=== PATIENT | female | born 1940 | race Caucasian/White ===

== ENCOUNTER 2016-07-26 07:19 | Inpatient (IN) | payer MEDICARE ==
[2016-07-26] MEDS ORDERED: IPRATROPIUM-ALBUTEROL 3 ML NEB INHALATION STA (08:02)
[2016-07-26] MEDS ORDERED: methylPREDNISolone SOD SUCCI 125 MG/2 ML VIAL IV STA (08:02)
[2016-07-26] MEDS ORDERED: SODIUM CHLORIDE 0.9% 1,000 ML IV STA (08:02)
[2016-07-26 08:48] LABS: Basophils # (A) 0.1 k/uL (0-0.2); Basophils % (A) 1 %; CH 29.5; CHCM 33.9; Eosinophils # (A) 0.9 k/uL (0-0.7); Eosinophils % (A) 12 %; HCT 40.2 % (34.0-46.0); HDW 2.73; HGB 13.7 gm/dL (11.4-16.0); Luc # (Auto) 0.31; Luc % (Auto) 4; Lymphocytes # (A) 1.8 k/uL (1.0-4.8); Lymphocytes % (A) 24 %; MCH 29.8 pg (25.0-35.0); MCHC 34.1 g/dL (31.0-37.0); MCV 87.6 fL (80.0-100.0); Mean Platelet Volume 7.1; Monocytes # (A) 0.6 k/uL (0-1.0); Monocytes % (A) 8 %; Neutrophils # (A) 3.9 k/uL (1.3-7.7); Neutrophils % (A) 52 %; RBC 4.59 m/uL (3.80-5.40); RDW 13.3 % (11.5-15.5); WBC 7.6 k/uL (3.8-10.6); WBC (Perox) 7.72
[2016-07-26 08:56] LABS: Partial Thromboplastin Time 24.6 sec (22.0-30.0); Prothrombin Time 10.4 sec (9.0-12.0)
[2016-07-26 09:03] LABS: ALT 19 U/L (9-52); AST 14 U/L (14-36); Alkaline Phosphatase 68 U/L (38-126); Anion Gap 11 mmol/L; Blood Urea Nitrogen 19 mg/dL (7-17); Calcium 9.1 mg/dL (8.4-10.2); Carbon Dioxide 29 mmol/L (22-30); Chloride 104 mmol/L (98-107); Glucose 74 mg/dL (74-99); Non-African American GFR(MDRD) >60 (>60 ml/min/1.73 sqM); Potassium 4.3 mmol/L (3.5-5.1); Sodium 144 mmol/L (137-145); Total Bilirubin 0.6 mg/dL (0.2-1.3); Total Protein 6.3 g/dL (6.3-8.2)
--- NOTE | 2016-07-26 09:03 | XR ---
EXAMINATION TYPE: XR chest 2V DATE OF EXAM: 07/26/2016 8:58 AM HISTORY: difficulty breathing. REFERENCE: Previous study dated 03/10/2016. FINDINGS: The lungs are overinflated. The heart is mildly enlarged. Lungs appear clear. Pleural space s are clear. IMPRESSION: COPD.
[2016-07-26 09:14] LABS: Creatine Kinase 26 U/L (30-135)
[2016-07-26 09:28] LABS: Creatine Kinase MB 0.5 ng/mL (0.0-2.4); Troponin I <0.012 ng/mL (0.000-0.034)
[2016-07-26] MEDS ORDERED: LEVOFLOXACIN 750MG-D5W PMX 750 MG in DEXTROSE/WATER 1 150ML.BAG IVPB STA (10:35)
--- NOTE | 2016-07-26 10:38 | ED ---
SOB HPI - General Chief Complaint: Shortness of Breath Stated Complaint: BARBIE, Time Seen by Provider: 07/26/16 07:54 Source: patient Mode of arrival: wheelchair Limitations: no limitations - History of Present Illness Initial Comments: Is 75-year-old white female presents with a complaint of some shortness of breath. She does have a history of COPD. She complains of wheezing. The onset occurred at 5:30 AM and she states that she did not feel she was moving much air. She was having wheezing without any significant cough. She denies any actual known fever. She felt very weak. She did try her albuterol breathing treatment with some relief. She also tried her inhaler. She took a nerve pill and her propanolol. Symptoms have improved somewhat better still present. She apparently was just released a couple weeks ago from the hospital with similar symptoms. She states that they wanted to keep her longer but she wanted to be discharged. She denies any other complaints or modifying factors. She denies any chest pain. - Related Data Home Medications Medication Instructions Recorded Confirmed FLUoxetine HCL [PROzac] 20 mg PO DAILY 12/19/14 07/26/16 Omeprazole [PriLOSEC] 20 mg PO BID 11/20/15 07/26/16 Albuterol Nebulized [Ventolin 2.5 mg INHALATION RT-Q6H PRN 07/26/16 07/26/16 Nebulized] Previous Rx's Medication Instructions Recorded ALPRAZolam [Xanax] 0.5 mg PO TID PRN #0 tab 03/14/16 Albuterol Inhaler [Ventolin Hfa 1 - 2 puff INHALATION RT-Q6H PRN 03/14/16 Inhaler] #2 inhaler Propranolol [Inderal] 10 mg PO TID tab 03/14/16 buPROPion XL [Wellbutrin Xl] 150 mg PO DAILY 30 Days 03/14/16 Allergies Allergy/AdvReac Type Severity Reaction Status Date / Time iodine Allergy Rash/Hives Verified 07/26/16 08:34 Sulfa (Sulfonamide Allergy Rash/Hives Verified 07/26/16 08:34 Antibiotics) zolpidem tartrate Allergy Hallucinati Verified 07/26/16 08:34 [From Humera] ons Review of Systems ROS Statement: Those systems with pertinent positive or pertinent negative responses have been documented in the HPI. ROS Other: All systems not noted in ROS Statement are negative. Past Medical History Past Medical History: COPD, CVA/TIA, Eye Disorder, GERD/Reflux, Hyperlipidemia Additional Past Medical History / Comment(s): Pt was recently admitted with AFib RVR converted to NSR and had lexiscan that was normal. Other hx: essential tremors, balance issues, falls, TIA, back pain, varicose veins bilaterally, low blood pressure, R cataract, hiatal hernia, RLS. History of Any Multi-Drug Resistant Organisms: None Reported Past Surgical History: Hysterectomy Additional Past Surgical History / Comment(s): 11/27/15 EGD with bx, L cataract removed, colonoscopy with 1 benign polypectomy. Past Anesthesia/Blood Transfusion Reactions: No Reported Reaction Past Psychological History: Anxiety, Depression Smoking Status: Current every day smoker Past Alcohol Use History: None Reported Additional Past Alcohol Use History / Comment(s): Pt states she has smoked for many yrs but unsure when she started. She quit for several yrs, during her pregnancies and when her children were young. She currently smokes 1/2 ppd. Past Drug Use History: None Reported - Past Family History Father Family Medical History: Cancer Additional Family Medical History / Comment(s): Pt thinks father might have from stomach cancer. She was 2 yrs old when he . Sister(s) Family Medical History: Cancer Additional Family Medical History / Comment(s): Half sister with brain cancer. Mother Family Medical History: Dementia Additional Family Medical History / Comment(s): Mother had gallstones and a partial thyroidectomy for noncancerous reasons. General Exam - General Exam Comments Initial Comments: GENERAL: The patient is well nourished and well hydrated. VITAL SIGNS: Heart rate, blood pressure, respiratory rate reviewed as recorded in nurse's notes. EYES: Pupils are round and reactive. Extraocular movements are intact. No conjunctival / lid redness or swelling. ENT: No external evidence of injury, swelling, or ecchymosis. Airway is patent. Throat is clear. NECK: Nontender. No swelling or evidence of injury. No subcutaneous emphysema. Trachea is midline. No thyroid mass. HEART: Regular rate and rhythm. Good peripheral pulses. LUNGS/CHEST: Wheezing is noted bilaterally and diffusely. No ecchymosis, subcutaneous emphysema, or tenderness. ABDOMEN: Abdomen soft without tenderness. No palpable masses or organomegaly. No peritoneal signs. No abdominal wall swelling or ecchymosis. EXTREMITIES: No extremity tenderness. Normal muscle tone and function. No thoracolumbar tenderness. NEUROLOGIC: Sensation is grossly intact. Cranial nerve exam reveals face is symmetrical, tongue is midline, speech is clear. SKIN: No abrasions or ecchymosis is noted. No induration or masses noted. PSYCHIATRIC: Alert and oriented. Appropriate behavior and judgment. Limitations: no limitations Course Vital Signs 07/26/16 07/26/16 07/26/16 07:23 07:34 07:38 Temperature 98.0 F 97.4 F L Pulse Rate 77 71 Respiratory 20 17 17 Rate Blood Pressure 110/57 116/63 O2 Sat by Pulse 92 L 97 Oximetry 07/26/16 07/26/16 07/26/16 09:08 09:15 09:30 Temperature 96.9 F L Pulse Rate 68 84 82 Respiratory 22 Rate Blood Pressure 148/67 O2 Sat by Pulse 97 Oximetry 07/26/16 07/26/16 10:23 10:49 Temperature 97.2 F L Pulse Rate 58 L 61 Respiratory 17 18 Rate Blood Pressure 135/64 154/67 O2 Sat by Pulse 99 98 Oximetry Medical Decision Making - Medical Decision Making The patient was seen and examined. All diagnostics were reviewed. The EKG shows a normal sinus rhythm at a rate of [address]-T wave changes noted. The MN interval is 148, QRS duration is 76 and QTC intervals 434. The chest x-ray showed signs of COPD. The laboratories reviewed. There is no evidence of pneumonia. Is felt as though she is having acute exacerbation of COPD. The possibility of bronchitis as possible as well. She receives double DuoNeb breathing treatment as well as Solu-Medrol and Levaquin. Is felt as though she would require admission to the hospital. She still bronchospastic on recheck. Case is discussed with internal medicine and they are agreeable. - Lab Data Result diagrams: 07/26/16 07:47 07/26/16 07:47 Lab Results 07/26/16 07/26/16 07/26/16 Range/Units 07:47 07:47 07:47 WBC 7.6 (3.8-10.6) k/uL RBC 4.59 (3.80-5.40) m/uL Hgb 13.7 (11.4-16.0) gm/dL Hct 40.2 (34.0-46.0) % MCV 87.6 (80.0-100.0) fL MCH 29.8 (25.0-35.0) pg MCHC 34.1 (31.0-37.0) g/dL RDW 13.3 (11.5-15.5) % Plt Count 263 (150-450) k/uL Neutrophils % 52 % Lymphocytes % 24 % Monocytes % 8 % Eosinophils % 12 % Basophils % 1 % Neutrophils # 3.9 (1.3-7.7) k/uL Lymphocytes # 1.8 (1.0-4.8) k/uL Monocytes # 0.6 (0-1.0) k/uL Eosinophils # 0.9 H (0-0.7) k/uL Basophils # 0.1 (0-0.2) k/uL PT (9.0-12.0) sec INR (<1.1) APTT (22.0-30.0) sec Sodium 144 (137-145) mmol/L Potassium 4.3 (3.5-5.1) mmol/L Chloride 104 (98-107) mmol/L Carbon Dioxide 29 (22-30) mmol/L Anion Gap 11 mmol/L BUN 19 H (7-17) mg/dL Creatinine 0.83 (0.52-1.04) mg/dL Est GFR (MDRD) Af Amer >60 (>60 ml/min/1.73 sqM) Est GFR (MDRD) Non-Af >60 (>60 ml/min/1.73 sqM) Glucose 74 (74-99) mg/dL Calcium 9.1 (8.4-10.2) mg/dL Total Bilirubin 0.6 (0.2-1.3) mg/dL AST 14 (14-36) U/L ALT 19 (9-52) U/L Alkaline Phosphatase 68 (38-126) U/L Total Creatine Kinase 26 L (30-135) U/L CK-MB (CK-2) 0.5 (0.0-2.4) ng/mL CK-MB (CK-2) Rel Index 1.9 Troponin I <0.012 (0.000-0.034) ng/mL Total Protein 6.3 (6.3-8.2) g/dL Albumin 3.8 (3.5-5.0) g/dL 07/26/16 Range/Units 07:47 WBC (3.8-10.6) k/uL RBC (3.80-5.40) m/uL Hgb (11.4-16.0) gm/dL Hct (34.0-46.0) % MCV (80.0-100.0) fL MCH (25.0-35.0) pg MCHC (31.0-37.0) g/dL RDW (11.5-15.5) % Plt Count (150-450) k/uL Neutrophils % % Lymphocytes % % Monocytes % % Eosinophils % % Basophils % % Neutrophils # (1.3-7.7) k/uL Lymphocytes # (1.0-4.8) k/uL Monocytes # (0-1.0) k/uL Eosinophils # (0-0.7) k/uL Basophils # (0-0.2) k/uL PT 10.4 (9.0-12.0) sec INR 1.0 (<1.1) APTT 24.6 (22.0-30.0) sec Sodium (137-145) mmol/L Potassium (3.5-5.1) mmol/L Chloride (98-107) mmol/L Carbon Dioxide (22-30) mmol/L Anion Gap mmol/L BUN (7-17) mg/dL Creatinine (0.52-1.04) mg/dL Est GFR (MDRD) Af Amer (>60 ml/min/1.73 sqM) Est GFR (MDRD) Non-Af (>60 ml/min/1.73 sqM) Glucose (74-99) mg/dL Calcium (8.4-10.2) mg/dL Total Bilirubin (0.2-1.3) mg/dL AST (14-36) U/L ALT (9-52) U/L Alkaline Phosphatase (38-126) U/L Total Creatine Kinase (30-135) U/L CK-MB (CK-2) (0.0-2.4) ng/mL CK-MB (CK-2) Rel Index Troponin I (0.000-0.034) ng/mL Total Protein (6.3-8.2) g/dL Albumin (3.5-5.0) g/dL Disposition Clinical Impression: Acute exacerbation of chronic obstructive airways disease, Bronchitis, Bronchospasm Disposition: ADMITTED IP TO THIS HOSP Condition: Fair Time of Disposition: 10:54 Decision Date: 07/26/16 Decision Time: 10:54
[2016-07-26] MEDS: ALPRAZolam 0.5 MG TAB PO PRN ×2 (14:08→22:01)
[2016-07-26] MEDS: IPRATROPIUM-ALBUTEROL 3 ML NEB INHALATION SCH ×2 (14:43→15:58)
[2016-07-26] MEDS: PROPRANOLOL 10 MG TAB PO SCH ×2 (15:03→22:01)
[2016-07-26] MEDS ORDERED: ACETAMINOPHEN TAB 500 MG TAB PO PRN (16:18)
[2016-07-26] MEDS ORDERED: TEMAZEPAM 15 MG CAP PO PRN (16:18)
[2016-07-26] MEDS ORDERED: HYDROcodone/APAP 5-325MG 1 EACH TAB PO PRN (16:18)
[2016-07-26] MEDS: PANTOPRAZOLE 40 MG TABLET PO SCH (17:00)
[2016-07-26] MEDS: NICOTINE 14MG/24HR PATCH TRANSDERM SCH (17:00)
[2016-07-26] MEDS: methylPREDNISolone SOD SUCCI 125 MG/2 ML VIAL IV SCH (17:00)
[2016-07-26] MEDS: IPRATROPIUM 0.5 MG/2.5 ML NEBU INHALATION SCH (19:57)
[2016-07-26] MEDS: BUDESONIDE 1 MG/2 ML NEBU INHALATION SCH (19:57)
[2016-07-26] MEDS: LEVALBUTEROL NEB (CONC) 1.25 MG/0.5 ML AMP INHALATION SCH (19:57)
[2016-07-26] MEDS: FORMOTEROL FUMARATE 20 MCG/2 ML NEBU INHALATION SCH (19:57)
[2016-07-26] MEDS ORDERED: BUDESONIDE 0.5 MG/2 ML NEBU INHALATION SCH (20:00)
[2016-07-27] MEDS: methylPREDNISolone SOD SUCCI 125 MG/2 ML VIAL IV SCH ×4 (00:57→17:21)
--- NOTE | 2016-07-27 05:20 | HP ---
DATE OF ADMISSION: DATE OF SERVICE: 07/26/2016 CHIEF COMPLAINT: Shortness of breath. HISTORY OF PRESENT ILLNESS: This 75-year-old woman with a past medical history of multiple medical problems including atrial fibrillation, COPD, CVA, GERD, history of hyperlipidemia, history of pneumonia, history of hysterectomy, history of anxiety and depression being followed by Dr. De La Garza in the outpatient setting living with a son. The patient uses a cane or walker to ambulate. The patient is driving. The patient apparently was having shortness of breath and cough for the last several days, but this morning at 5:30 patient was unable to breathe and move air at all and patient had significant wheezing and patient was taken to [facility] and admitted for further evaluation and treatment. The patient felt extremely weak and a chest x-ray was done in the ER which reviewed, showed only COPD. The pulse ox was 92% on room. There was no history of any fever, rigors. There is no history of headaches, loss of consciousness or seizures. PAST MEDICAL HISTORY: Atrial fibrillation, COPD, CVA, TIA, history of GERD, history of hyperlipidemia, pneumonia. Medications prior to admission include: 1. Wellbutrin XL 150 mg p.o. daily. 2. Inderal 10 mg p.o. t.i.d. 3. Prilosec 20 mg p.o. b.i.d. 4. Prozac 20 mg daily. 5. Ventolin 2.5 q.6 p.r.n. 6. Ventolin HFA 1 to 2 puffs q.6 p.r.n. 7. Xanax 0.5 t.i.d. p.r.n. ALLERGIES: IODINE, SULFA, AMBIEN. FAMILY HISTORY: History of cancer in the family. SOCIAL HISTORY: History of smoking. The patient has cut down significantly, did not smoke for the last 5 days according to her. No history of alcohol intake. REVIEW OF SYSTEMS: ENT: Diminished vision and hearing. CARDIOVASCULAR: No angina. RESPIRATORY: As mentioned earlier. GI: No nausea. : No dysuria. NERVOUS SYSTEM: No numbness or weakness. ALLERGY/IMMUNOLOGY: No history of asthma or hayfever. MUSCULOSKELETAL: As mentioned earlier. HEMATOLOGY/ONCOLOGY: No history of anemia. ENDOCRINE: No history of diabetes or hypothyroidism. CONSTITUTIONAL: As mentioned earlier. DERMATOLOGY: Negative. RHEUMATOLOGY: Negative. PSYCHIATRY: As mentioned earlier. PHYSICAL EXAMINATION: The patient is alert and oriented x3. Pulse 68, blood pressure 148/67, respirations 22, temperature 96.9, pulse ox 97% on 8 L. HEENT: Conjunctivae normal. Oral mucosa moist. NECK: No jugular venous distention. No carotid bruit. No lymph node enlargement. CARDIOVASCULAR: S1 and S2, muffled. No S3, no S4. RESPIRATORY: Breath sounds diminished at the bases. Bilateral scattered rhonchi and crackles. Expiratory wheezing also present. ABDOMEN: Soft, nontender. No mass palpable. LEGS: No edema, no swelling. NERVOUS SYSTEM: Diffusely weak. LYMPHATICS: No lymphadenopathy of neck, axillae or groin. SKIN: No ulcers, rashes or bleeding. LABS: CBC within normal limits. INR Is 1. BUN is 9 creatinine 0.83. Creatine kinase 26. ASSESSMENT: 1. Chronic obstructive pulmonary disease acute exacerbation with acute purulent tracheobronchitis. 2. History of atrial fibrillation. 3. History of cerebrovascular accident, transient ischemic attack. 4. History of gastroesophageal reflux disease. 5. Hyperlipidemia. 6. History of pneumonia. 7. History of paroxysmal atrial fibrillation. 8. History of transient ischemic attack. 9. History of tremors. 10. History of cataracts. 11. Hiatal hernia. 12. Restless leg syndrome. 13. History of anxiety, depression, not otherwise specified. 14. History of nicotine dependence. 15. FULL CODE. RECOMMENDATIONS AND DISCUSSION: This 75-year-old woman who presented with multiple complex medical issues, we will monitor the patient closely. Continue the current medications. Continue symptomatic treatment. Otherwise at this time I would recommend intensive bronchodilators and empiric antibiotics and IV steroids; also monitor blood sugars closely. Will also get a pulmonary consultation with Dr. Valdez. Guarded prognosis because of multiple complex medical issues. Further recommendations to follow. A copy is forwarded to Dr. De La Garza who is the primary physician. DVT prophylaxis. Proton pump inhibitors with GI prophylaxis. Would also recommend smoking cessation as well. Patient understands. See orders for further details. Medication concerns. Chest x-ray was reviewed. The EKG on admission showed normal sinus rhythm. MTDD
[2016-07-27 06:15] LABS: Appearance,Urine Clear (Clear); Bacteria,Urine Rare /hpf; Bilirubin,Urine Negative (Negative); Glucose,Urine (UA) Negative (Negative); Ketones,Urine Negative (Negative); Leukocyte Esterase,Urine Negative (Negative); Mucus,Urine Rare /hpf; Nitrite,Urine Negative (Negative); PH, Urine 6.5 (5.0-8.0); Particle Count 667; Protein,Urine Negative (Negative); RBC,Urine 6 /hpf (0-5); Specific Gravity,Urine 1.006 (1.001-1.035); Squamous Epithelial Cell,Urine 1 /hpf (0-4); UA Billing (MACRO vs. MICRO) MICRO; Urobilinogen,Urine <2.0 mg/dL (<2.0); WBC,Urine 1 /hpf (0-5)
[2016-07-27] MEDS: ENOXAPARIN 40 MG/0.4 ML SYRINGE SQ SCH (08:05)
[2016-07-27] MEDS: PROPRANOLOL 10 MG TAB PO SCH ×3 (08:06→21:40)
[2016-07-27] MEDS: NICOTINE 14MG/24HR PATCH TRANSDERM SCH (08:06)
[2016-07-27] MEDS: buPROPion XL 150 MG TAB.ER.24H PO SCH (08:07)
[2016-07-27] MEDS: FLUoxetine HCL 20 MG CAP PO SCH (08:07)
[2016-07-27] MEDS: PANTOPRAZOLE 40 MG TABLET PO SCH ×2 (08:08→17:21)
[2016-07-27] MEDS: ALPRAZolam 0.5 MG TAB PO PRN ×3 (08:10→19:11)
[2016-07-27] MEDS: LEVOFLOXACIN 750MG-D5W PMX 750 MG in DEXTROSE/WATER 1 150ML.BAG IVPB SCH (08:30)
[2016-07-27 09:16] LABS: Basophils % (A) 0 %; CHCM 32.6; Eosinophils % (A) 0 %; HDW 2.67; Luc # (Auto) 0.08; Luc % (Auto) 1; Lymphocytes # (A) 0.9 k/uL (1.0-4.8); Lymphocytes % (A) 6 %; MCH 28.4 pg (25.0-35.0); MCHC 31.8 g/dL (31.0-37.0); MCV 89.4 fL (80.0-100.0); Mean Platelet Volume 6.7; Monocytes # (A) 0.5 k/uL (0-1.0); Monocytes % (A) 3 %; Neutrophils # (A) 13.9 k/uL (1.3-7.7); Neutrophils % (A) 90 %; RBC 4.59 m/uL (3.80-5.40); WBC 15.4 k/uL (3.8-10.6); WBC (Perox) 16.51
[2016-07-27] MEDS: IPRATROPIUM 0.5 MG/2.5 ML NEBU INHALATION SCH ×5 (09:23→19:54)
[2016-07-27] MEDS: FORMOTEROL FUMARATE 20 MCG/2 ML NEBU INHALATION SCH ×2 (09:23→19:54)
[2016-07-27] MEDS: BUDESONIDE 1 MG/2 ML NEBU INHALATION SCH ×2 (09:23→19:54)
[2016-07-27] MEDS: LEVALBUTEROL NEB (CONC) 1.25 MG/0.5 ML AMP INHALATION SCH ×3 (09:24→19:54)
[2016-07-27 09:33] LABS: Anion Gap 13 mmol/L; Blood Urea Nitrogen 13 mg/dL (7-17); Calcium 9.8 mg/dL (8.4-10.2); Carbon Dioxide 25 mmol/L (22-30); Chloride 103 mmol/L (98-107); Glucose 163 mg/dL (74-99); Non-African American GFR(MDRD) >60 (>60 ml/min/1.73 sqM); Sodium 141 mmol/L (137-145)
[2016-07-27] MEDS: MULTIVITAMINS, THERA 1 EACH TAB PO SCH (13:12)
--- NOTE | 2016-07-27 20:12 | P.CNPUL ---
History of Present Illness Consult date: 07/27/16 Requesting physician: Raúl Jacinto Reason for consult: dyspnea Chief complaint: Shortness of breath History of present illness: This is a very pleasant 75-year-old female patient who follows with Dr. De La Garza as her primary care physician. She has a history of previous CVA/TIA , gastroesophageal reflux disease, hyperlipidemia, atrial fibrillation, essential tremors, restless leg syndrome. She also has a history of chronic and ongoing nicotine addiction for greater than 50 years and has suspected chronic obstructive pulmonary disease. She has been maintained on albuterol HFA and nebulized treatments in the outpatient setting. On a previous discharge she was on Symbicort but utilize the one inhaler and did not have any refills and was not maintained on any maintenance medications. She presented here yesterday with complaints of increasing shortness of breath, cough and congestion. Sick she did try utilizing her albuterol more frequently leave without much success. She felt as though she had bronchitis. She was not treated in the outpatient setting. She is seen today in consultation on the regular medical floor. She is awake and alert in no acute distress. Her chest x-ray showed evidence of chronic obstructive pulmonary disease but no acute pulmonary process. Blood cultures revealed no growth to date. She was afebrile. She continues with a loose nonproductive cough. She is breathing slightly better today as compared to yesterday. Review of Systems 14 point review of system was conducted. All negative other than as mentioned in HPI. Past Medical History Past Medical History: Atrial Fibrillation, COPD, CVA/TIA, Eye Disorder, GERD/ Reflux, Hyperlipidemia, Pneumonia Additional Past Medical History / Comment(s): 12/2015 AFib RVR converted to NSR and had lexiscan that was normal, bronchitis, essential tremors, balance issues , falls, TIA, chronic low back pain, varicose veins bilaterally, low blood pressure, R cataract, hiatal hernia, RLS. History of Any Multi-Drug Resistant Organisms: None Reported Past Surgical History: Hysterectomy Additional Past Surgical History / Comment(s): 11/27/15 EGD with bx, L cataract removed, colonoscopy with 1 benign polypectomy. Past Anesthesia/Blood Transfusion Reactions: No Reported Reaction Past Psychological History: Anxiety, Depression Additional Psychological History / Comment(s): Pt's sonSonu lives with her. She uses a cane or walker to ambulate. She drives. Her blessing, Rita comes and cleans home on occasion. she has had [facility] in the past. Smoking Status: Current every day smoker Past Alcohol Use History: None Reported Additional Past Alcohol Use History / Comment(s): Pt states she started smoking in her early 20's. She quit for several yrs, during her pregnancies and when her children were young. She currently smokes 1/2 ppd. Past Drug Use History: None Reported - Past Family History Father Family Medical History: Cancer Additional Family Medical History / Comment(s): Pt thinks father might have from stomach cancer. She was 2 yrs old when he . Sister(s) Family Medical History: Cancer Additional Family Medical History / Comment(s): Half sister with brain cancer. Mother Family Medical History: Dementia Additional Family Medical History / Comment(s): Mother had gallstones and a partial thyroidectomy for noncancerous reasons. Medications and Allergies Home Medications Medication Instructions Recorded Confirmed Type FLUoxetine HCL [PROzac] 20 mg PO DAILY 12/19/14 07/26/16 History Omeprazole [PriLOSEC] 20 mg PO BID 11/20/15 07/26/16 History Albuterol Nebulized [Ventolin 2.5 mg INHALATION RT-Q6H PRN 07/26/16 07/26/16 History Nebulized] Allergies Allergy/AdvReac Type Severity Reaction Status Date / Time iodine Allergy Rash/Hives Verified 07/26/16 08:34 Sulfa (Sulfonamide Allergy Rash/Hives Verified 07/26/16 08:34 Antibiotics) zolpidem tartrate Allergy Hallucinati Verified 07/26/16 08:34 [From Humera] ons Physical Exam Vitals: Vital Signs Temp Pulse Pulse Resp BP Pulse Ox 07/27/16 19:58 84 07/27/16 15:59 80 07/27/16 15:00 97.0 F L 72 16 104/80 97 07/27/16 09:45 84 07/27/16 09:30 88 07/27/16 09:29 88 07/27/16 09:23 86 07/27/16 07:00 97.3 F L 92 16 104/45 95 07/26/16 23:00 96 F L 93 20 126/58 94 L 07/26/16 20:23 84 07/26/16 20:09 82 07/26/16 20:08 82 Intake and Output 07/27/16 07/27/16 07/27/16 06:59 14:59 22:59 Intake Total 100 Balance 100 Intake: Oral 100 Other: # Voids 2 1 GENERAL EXAM: Alert, active, comfortable in no apparent distress. Essential tremors. HEAD: Normocephalic. EYES: Normal reaction of pupils, equal size. NOSE: Clear with pink turbinates. THROAT: No erythema or exudates. NECK: No masses, no JVD. CHEST: No chest wall deformity. LUNGS: Equal air entry with bilateral wheezing. Diminished. CVS: S1 and S2 normal with no audible murmurs, regular rhythm. ABDOMEN: No hepatosplenomegaly, normal bowel sounds, no guarding or rigidity. SPINE: No scoliosis or deformity SKIN: No rashes CENTRAL NERVOUS SYSTEM: No focal deficits, tone is normal in all 4 extremities. Extremities: There is no significant peripheral edema. No clubbing, no cyanosis. Peripheral pulses are intact. Results - Laboratory Findings CBC and BMP: 07/27/16 09:03 07/27/16 09:03 PT/INR, D-dimer PT 10.4 sec (9.0-12.0) 07/26/16 07:47 INR 1.0 (<1.1) 07/26/16 07:47 Abnormal lab findings: Abnormal Labs 07/27/16 07/27/16 07/27/16 03:15 09:03 09:03 WBC 15.4 H Neutrophils # 13.9 H Lymphocytes # 0.9 L Glucose 163 H Urine Blood Small H Urine RBC 6 H Urine Bacteria Rare H Urine Mucus Rare H - Diagnostic Findings Chest x-ray: image reviewed (COPD. No acute process.) Assessment and Plan Plan: Impression: #1 Acute exacerbation of suspected severe chronic obstructive pulmonary disease maintained on albuterol in the outpatient setting. #2 Significant 50+ pack per day smoking history. #3 Essential tremors. #4 Paroxysmal atrial fibrillation. #5 History of CVA/TIA. #6 Hyperlipidemia. #7 Gastroesophageal reflux disease. #8 Restless leg syndrome. #9 History of anxiety/depression. #10 Gastroesophageal reflux disease. Plan: The patient was seen and evaluated by Dr. Valdez. We will go ahead and treat her for her COPD exacerbation. She'll remain on IV Solu-Medrol, bronchodilators 4 times a day and when necessary, Pulmicort and Perforomist inhalations twice a day, empiric antibiotics in the form of Levaquin. She is educated regarding the importance of complete smoking cessation. A NicoDerm patch has been applied. She remains on Lovenox for DVT prophylaxis and Protonix for GI prophylaxis. She would benefit from a follow-up in our office where full pulmonary function testing can be performed and recommendations for maintenance medications will be provided. In the interim, we will increase her activity as tolerated. We'll continue to follow. Time with Patient: Greater than 30
--- NOTE | 2016-07-27 23:23 | PN ---
DATE OF SERVICE: 07/27/2016 This 75 -year-old woman was admitted to the hospital with COPD, acute exacerbation, the patient has acute purulent tracheobronchitis, being closely monitored. No chest pain. No palpitations. The patient is cough at this time. Pulmonary consultation in progress at this time. On exam, alert and oriented x3. Pulse is 72, blood pressure is 105/80. Respiratory rate 16, temperature 97 degrees, pulse ox 97% on 2 L. HEENT: Conjunctivae normal. NECK: No jugular venous distention. CARDIOVASCULAR: S1, S2 muffled. RESPIRATORY: Breath sounds diminished in the bases. Bilateral scattered rhonchi and crackles. ABDOMEN: Soft. Nontender. LEGS: No edema. No swelling. CENTRAL NERVOUS SYSTEM: No focal deficits. LABS: WBC 15.5, hemoglobin 13. Sodium 140, potassium 4, UA noted. ASSESSMENT: 1. Chronic obstructive pulmonary disease, acute exacerbation, with acute purulent tracheobronchitis. 2. History of atrial fibrillation. 3. History of cerebrovascular accident, transient ischemic attack. 4. History of gastroesophageal reflux disease. 5. Hyperlipidemia. 6. History of pneumonia. 7. History of paroxysmal atrial fibrillation. 8. History of transient ischemic attack. 9. History of tremors. 10. History of cataracts. 11. History of hiatal hernia. 12. Restless leg syndrome. 13. Anxiety, depression, not otherwise specified. 14. History nicotine dependence. 15. FULL CODE. RECOMMENDATIONS AND DISCUSSION: In this 75-year-old woman who presented with multiple complex medical issues, we will monitor the patient closely, continue the current medications, continue with bronchodilators, steroids. Closely follow with Dr. Valdez. Further recommendations to follow. MTDD
[2016-07-28] MEDS: methylPREDNISolone SOD SUCCI 125 MG/2 ML VIAL IV SCH ×3 (00:22→13:00)
[2016-07-28] MEDS: ALPRAZolam 0.5 MG TAB PO PRN ×2 (06:46→12:24)
[2016-07-28] MEDS: FORMOTEROL FUMARATE 20 MCG/2 ML NEBU INHALATION SCH ×2 (07:01→20:17)
[2016-07-28] MEDS: IPRATROPIUM-ALBUTEROL 3 ML NEB INHALATION SCH ×4 (07:01→20:17)
[2016-07-28] MEDS: BUDESONIDE 1 MG/2 ML NEBU INHALATION SCH ×2 (07:01→20:17)
[2016-07-28] MEDS: buPROPion XL 150 MG TAB.ER.24H PO SCH (07:37)
[2016-07-28] MEDS: LEVOFLOXACIN 750MG-D5W PMX 750 MG in DEXTROSE/WATER 1 150ML.BAG IVPB SCH (07:37)
[2016-07-28] MEDS: PROPRANOLOL 10 MG TAB PO SCH ×3 (07:38→20:36)
[2016-07-28] MEDS: ENOXAPARIN 40 MG/0.4 ML SYRINGE SQ SCH (07:38)
[2016-07-28] MEDS: PANTOPRAZOLE 40 MG TABLET PO SCH ×2 (07:38→18:20)
[2016-07-28] MEDS: FLUoxetine HCL 20 MG CAP PO SCH (07:38)
[2016-07-28] MEDS: NICOTINE 14MG/24HR PATCH TRANSDERM SCH (07:38)
[2016-07-28 08:46] LABS: Basophils % (A) 0 %; CH 29.1; CHCM 32.3; Eosinophils % (A) 0 %; HDW 2.62; HGB 13.2 gm/dL (11.4-16.0); Luc # (Auto) 0.12; Luc % (Auto) 1; Lymphocytes # (A) 0.8 k/uL (1.0-4.8); Lymphocytes % (A) 4 %; MCH 29.8 pg (25.0-35.0); MCV 90.5 fL (80.0-100.0); Mean Platelet Volume 6.9; Monocytes # (A) 0.5 k/uL (0-1.0); Monocytes % (A) 2 %; Neutrophils # (A) 16.9 k/uL (1.3-7.7); Neutrophils % (A) 93 %; RBC 4.42 m/uL (3.80-5.40); RDW 13.1 % (11.5-15.5); WBC 18.2 k/uL (3.8-10.6); WBC (Perox) 19.71
[2016-07-28 08:58] LABS: Anion Gap 10 mmol/L; Blood Urea Nitrogen 17 mg/dL (7-17); Calcium 9.7 mg/dL (8.4-10.2); Carbon Dioxide 28 mmol/L (22-30); Chloride 101 mmol/L (98-107); Glucose 148 mg/dL (74-99); Non-African American GFR(MDRD) >60 (>60 ml/min/1.73 sqM); Potassium 3.8 mmol/L (3.5-5.1); Sodium 139 mmol/L (137-145)
[2016-07-28] MEDS: MULTIVITAMINS, THERA 1 EACH TAB PO SCH (12:22)
[2016-07-28] MEDS: methylPREDNISolone SOD SUCCI 40 MG/ML 1 ML VIAL IV SCH ×2 (16:34→23:01)
--- NOTE | 2016-07-28 17:11 | P.PN ---
Subjective This is a very pleasant 75-year-old female patient who follows with Dr. De La Garza as her primary care physician. She has a history of previous CVA/TIA , gastroesophageal reflux disease, hyperlipidemia, atrial fibrillation, essential tremors, restless leg syndrome. She also has a history of chronic and ongoing nicotine addiction for greater than 50 years and has suspected chronic obstructive pulmonary disease. She has been maintained on albuterol HFA and nebulized treatments in the outpatient setting. On a previous discharge she was on Symbicort but utilize the one inhaler and did not have any refills and was not maintained on any maintenance medications. She presented here yesterday with complaints of increasing shortness of breath, cough and congestion. Sick she did try utilizing her albuterol more frequently leave without much success. She felt as though she had bronchitis. She was not treated in the outpatient setting. She is seen today in consultation on the regular medical floor. She is awake and alert in no acute distress. Her chest x-ray showed evidence of chronic obstructive pulmonary disease but no acute pulmonary process. Blood cultures revealed no growth to date. She was afebrile. She continues with a loose nonproductive cough. She is breathing slightly better today as compared to yesterday. The patient is seen again today on 07/28/2016 on the regular medical floor. She is awake and alert in no acute distress. She is improving daily. She denies any worsening shortness of breath at this time. She has a loose nonproductive cough. No chills or night sweats. She is maintaining good O2 saturations in the mid 90s on room air. She's been afebrile. She's been up ambulating in the room without any acute distress. Objective - Vital Signs Vital signs: Vital Signs Temp 97.4 F L 07/28/16 15:00 Pulse 70 07/28/16 16:44 Resp 18 07/28/16 15:00 BP 105/48 07/28/16 15:00 Pulse Ox 95 07/28/16 16:19 Intake & Output 07/27/16 07/28/16 07/28/16 18:59 06:59 18:59 Intake Total 200 Balance 200 Intake: Oral 200 Other: # Voids 1 1 1 - Exam GENERAL EXAM: Alert, active, comfortable in no apparent distress. HEAD: Normocephalic. EYES: Normal reaction of pupils, equal size. NOSE: Clear with pink turbinates. THROAT: No erythema or exudates. NECK: No masses, no JVD. CHEST: No chest wall deformity. LUNGS: Equal air entry with faint end expiratory wheeze, diminished. CVS: S1 and S2 normal with no audible murmurs, regular rhythm. ABDOMEN: No hepatosplenomegaly, normal bowel sounds, no guarding or rigidity. SPINE: No scoliosis or deformity SKIN: No rashes CENTRAL NERVOUS SYSTEM: No focal deficits, tone is normal in all 4 extremities. Extremities: There is no significant peripheral edema. No clubbing, no cyanosis. Peripheral pulses are intact. - Labs CBC & Chem 7: 07/28/16 08:13 07/28/16 08:13 Labs: Abnormal Lab Results - Last 24 Hours (Table) 07/28/16 07/28/16 Range/Units 08:13 08:13 WBC 18.2 H (3.8-10.6) k/uL Neutrophils # 16.9 H (1.3-7.7) k/uL Lymphocytes # 0.8 L (1.0-4.8) k/uL Glucose 148 H (74-99) mg/dL Assessment and Plan Plan: Impression: #1 Acute exacerbation of suspected severe chronic obstructive pulmonary disease maintained on albuterol in the outpatient setting. #2 Significant 50+ pack per day smoking history. #3 Essential tremors. #4 Paroxysmal atrial fibrillation. #5 History of CVA/TIA. #6 Hyperlipidemia. #7 Gastroesophageal reflux disease. #8 Restless leg syndrome. #9 History of anxiety/depression. #10 Gastroesophageal reflux disease. Plan: The patient was seen and evaluated by Dr. Valdez. She is improved from the pulmonary standpoint. We'll continue with her current medications. We will increase her activity as tolerated. We'll continue to follow.
[2016-07-29] MEDS: ALPRAZolam 0.5 MG TAB PO PRN ×2 (00:59→09:05)
[2016-07-29] MEDS: IPRATROPIUM-ALBUTEROL 3 ML NEB INHALATION SCH ×2 (05:46→11:21)
[2016-07-29] MEDS ORDERED: IPRATROPIUM-ALBUTEROL 3 ML NEB INHALATION PRN (05:50)
--- NOTE | 2016-07-29 07:29 | XR ---
EXAMINATION TYPE: XR chest 1V portable DATE OF EXAM: 07/29/2016 7:03 AM COMPARISON: 07/26/2016 HISTORY: Cough and pneumonia TECHNIQUE: Single frontal view of the chest is obtained. FINDINGS: There is no focal air space opacity, pleural effusion, or pneumothorax seen. The cardiac silhouette size is within normal limits. The osseous structures are intact. Hyperinflation suggests COPD. Interstitial prominence suggest pulmonary fibrosis. Heart is mildly prominent. Arthropathy allison ulders. Patient rotation limits exam. IMPRESSION: 1. Correlate for COPD possible underlying pulmonary fibrosis.
[2016-07-29] MEDS: BUDESONIDE 1 MG/2 ML NEBU INHALATION SCH (08:11)
[2016-07-29] MEDS: FORMOTEROL FUMARATE 20 MCG/2 ML NEBU INHALATION SCH (08:11)
[2016-07-29 08:15] VITALS: BP 130/68; RESP 18; TEMP 96.9
[2016-07-29] MEDS: NICOTINE 14MG/24HR PATCH TRANSDERM SCH (08:59)
[2016-07-29] MEDS ORDERED: LEVOFLOXACIN 750 MG TAB PO SCH (09:00)
[2016-07-29] MEDS: PROPRANOLOL 10 MG TAB PO SCH (09:05)
[2016-07-29] MEDS: buPROPion XL 150 MG TAB.ER.24H PO SCH (09:07)
[2016-07-29] MEDS: ENOXAPARIN 40 MG/0.4 ML SYRINGE SQ SCH (09:07)
[2016-07-29] MEDS: PANTOPRAZOLE 40 MG TABLET PO SCH (09:07)
[2016-07-29] MEDS: FLUoxetine HCL 20 MG CAP PO SCH (09:07)
[2016-07-29] MEDS: methylPREDNISolone SOD SUCCI 40 MG/ML 1 ML VIAL IV SCH (09:07)
--- NOTE | 2016-07-29 09:10 | PN ---
DATE OF SERVICE: 07/28/2016 This 75-year-old woman is admitted with COPD acute exacerbation as well as acute purulent tracheobronchitis, was extremely short of breath on presentation. The patient was treated with intensive bronchodilator treatment as well as IV steroids. Patient still on IV steroids. The breathing is slightly better. The patient is on broad spectrum IV antibiotics and Dr. Valdez is following the patient closely. White count is elevated at 18.2. PAST MEDICAL HISTORY: Reviewed. REVIEW OF SYSTEMS: CARDIOVASCULAR: As mentioned earlier. RESPIRATORY SYSTEM: As mentioned earlier. GI: As mentioned earlier. : No dysuria. NERVOUS SYSTEM: No numbness or weakness. Current medications are Tylenol 500 q.6 p.r.n., Clyde 5 mg q.6 p.r.n., Albuterol Atrovent q.i.d. and p.r.n., Xanax 0.5 mg, Pulmicort 1 mg b.i.d., Wellbutrin XL 150 mg daily, Lovenox 40 mg subQ daily, Prozac 20 mg daily, Perforomist 20 mg b.i.d., Levaquin 750 daily, Solu-Medrol 40 IV q.8, Habitrol 14, Protonix 40 mg daily, Inderal 10 mg t.i.d., Restoril 50 mg q.h.s. p.r.n. PHYSICAL EXAM: Patient is alert and oriented x3. The pulse is 82, blood pressure 105/48, respirations 18, temperature is 97.4, pulse ox is 90% on room air. HEENT: Conjunctivae normal, oral mucosal moist. Neck is no jugular venous distension, no carotid bruit, no lymph node enlargement. CARDIOVASCULAR: S1, S, muffled. RESPIRATORY: Breath sounds diminished at the bases, expiratory wheezing and prolongation also present. The face is flushed. Otherwise abdomen is soft, nontender, no mass palpable. EXTREMITIES: Legs no edema, no swelling. NERVOUS SYSTEM: No focal deficits. Labs are at this time shows WBC 18.2, hemoglobin is 13.2 and glucose 148. ASSESSMENT: 1. Chronic obstructive pulmonary disease acute exacerbation, with acute purulent tracheobronchitis. 2. History of atrial fibrillation. 3. Increased WBC. 4. History of cerebrovascular accident, transient ischemic attack. 5. History of gastroesophageal reflux disease. 6. Increased random blood sugar. 7. Hyperlipidemia. 8. History of pneumonia. 9. History of paroxysmal atrial fibrillation. 10. History of transient ischemic attack. 11. History of tremors. 12. History of cataracts. 13. History of hiatal hernia. 14. Restless leg syndrome. 15. Anxiety, depression, not otherwise specified. 16. History of nicotine dependence. 17. Gait dysfunction. 18. FULL CODE. RECOMMENDATION: In this 75-year-old woman who presented with multiple complex medical issues, will monitor the patient closely. Continue with the current medication, continue with the symptomatic treatment. Otherwise, we will continue with IV steroids, continue with the rest of the medications. Guarded prognosis, intensive bronchodilator treatment. The patient is responding to quadruple bronchodilators, bronchodilator treatment. Otherwise, prognosis guarded. This patient requires more than 2 nights of hospital admission to diagnose and treat life-threatening multiple medical issues and also to avoid complication also and will follow the patient closely with pulmonary.
[2016-07-29 09:17] LABS: Basophils % (A) 0 %; CH 29.8; CHCM 32.5; Eosinophils % (A) 0 %; HDW 2.55; HGB 12.9 gm/dL (11.4-16.0); Luc # (Auto) 0.17; Luc % (Auto) 1; Lymphocytes # (A) 1.1 k/uL (1.0-4.8); Lymphocytes % (A) 8 %; MCH 29.1 pg (25.0-35.0); MCHC 31.5 g/dL (31.0-37.0); MCV 92.3 fL (80.0-100.0); Mean Platelet Volume 6.9; Monocytes # (A) 0.6 k/uL (0-1.0); Monocytes % (A) 5 %; Neutrophils % (A) 86 %; RBC 4.44 m/uL (3.80-5.40); RDW 13.5 % (11.5-15.5); WBC 13.9 k/uL (3.8-10.6); WBC (Perox) 15.22
[2016-07-29 09:30] LABS: Anion Gap 11 mmol/L; Blood Urea Nitrogen 22 mg/dL (7-17); Calcium 9.3 mg/dL (8.4-10.2); Carbon Dioxide 26 mmol/L (22-30); Chloride 101 mmol/L (98-107); Glucose 120 mg/dL (74-99); Non-African American GFR(MDRD) >60 (>60 ml/min/1.73 sqM); Sodium 138 mmol/L (137-145)
[2016-07-29 11:22] VITALS: PULSE 76
[2016-07-29] MEDS: MULTIVITAMINS, THERA 1 EACH TAB PO SCH (13:01)
--- NOTE | 2016-07-29 13:13 | P.PN ---
Subjective This is a very pleasant 75-year-old female patient who follows with Dr. De La Garza as her primary care physician. She has a history of previous CVA/TIA , gastroesophageal reflux disease, hyperlipidemia, atrial fibrillation, essential tremors, restless leg syndrome. She also has a history of chronic and ongoing nicotine addiction for greater than 50 years and has suspected chronic obstructive pulmonary disease. She has been maintained on albuterol HFA and nebulized treatments in the outpatient setting. On a previous discharge she was on Symbicort but utilize the one inhaler and did not have any refills and was not maintained on any maintenance medications. She presented here yesterday with complaints of increasing shortness of breath, cough and congestion. Sick she did try utilizing her albuterol more frequently leave without much success. She felt as though she had bronchitis. She was not treated in the outpatient setting. She is seen today in consultation on the regular medical floor. She is awake and alert in no acute distress. Her chest x-ray showed evidence of chronic obstructive pulmonary disease but no acute pulmonary process. Blood cultures revealed no growth to date. She was afebrile. She continues with a loose nonproductive cough. She is breathing slightly better today as compared to yesterday. The patient is seen again today on 07/28/2016 on the regular medical floor. She is awake and alert in no acute distress. She is improving daily. She denies any worsening shortness of breath at this time. She has a loose nonproductive cough. No chills or night sweats. She is maintaining good O2 saturations in the mid 90s on room air. She's been afebrile. She's been up ambulating in the room without any acute distress. The patient is seen again today 07/29/2016 in follow-up on the regular medical floor. She is awake and alert in no acute distress. She is anxious to go home. She denies any worsening shortness of breath, cough or congestion. She is currently maintaining good O2 saturations in the 90s on room air. She remains afebrile. Improved leukocytosis. She feels she is nearly back to her baseline. Objective - Vital Signs Vital signs: Vital Signs Temp 96.9 F L 07/29/16 07:00 Pulse 76 07/29/16 11:34 Resp 18 07/29/16 08:00 BP 130/68 07/29/16 07:00 Pulse Ox 96 07/29/16 08:13 Intake & Output 07/28/16 07/29/16 07/29/16 18:59 06:59 18:59 Intake Total 240 240 Balance 240 240 Intake: Oral 240 240 Other: Voiding Method Toilet # Voids 3 1 - Exam GENERAL EXAM: Alert, active, comfortable in no apparent distress. HEAD: Normocephalic. EYES: Normal reaction of pupils, equal size. NOSE: Clear with pink turbinates. THROAT: No erythema or exudates. NECK: No masses, no JVD. CHEST: No chest wall deformity. LUNGS: Equal air entry with faint end expiratory wheeze, diminished. CVS: S1 and S2 normal with no audible murmurs, regular rhythm. ABDOMEN: No hepatosplenomegaly, normal bowel sounds, no guarding or rigidity. SPINE: No scoliosis or deformity SKIN: No rashes CENTRAL NERVOUS SYSTEM: No focal deficits, tone is normal in all 4 extremities. Extremities: There is no significant peripheral edema. No clubbing, no cyanosis. Peripheral pulses are intact. - Labs CBC & Chem 7: 07/29/16 08:25 07/29/16 08:25 Labs: Abnormal Lab Results - Last 24 Hours (Table) 07/29/16 07/29/16 Range/Units 08:25 08:25 WBC 13.9 H (3.8-10.6) k/uL Neutrophils # 12.0 H (1.3-7.7) k/uL BUN 22 H (7-17) mg/dL Glucose 120 H (74-99) mg/dL Assessment and Plan Plan: Impression: #1 Acute exacerbation of suspected severe chronic obstructive pulmonary disease maintained on albuterol in the outpatient setting. #2 Significant 50+ pack per day smoking history. #3 Essential tremors. #4 Paroxysmal atrial fibrillation. #5 History of CVA/TIA. #6 Hyperlipidemia. #7 Gastroesophageal reflux disease. #8 Restless leg syndrome. #9 History of anxiety/depression. #10 Gastroesophageal reflux disease. Plan: The patient was seen and evaluated by Dr. Valdez. She is cleared for discharge from the pulmonary standpoint. She'll continue with a prednisone taper and antibiotics. She was given a prescription for Symbicort. She'll continue with albuterol. She'll follow-up in our office in one to two-week [address] Valdez. We'll perform further pulmonary testing on her and make recommendations for continued maintenance medications. He is encouraged to call sooner with any recurrence of symptoms or other questions or concerns.
--- NOTE | 2016-07-30 13:17 | DS ---
DATE OF ADMISSION: 07/29/2016 DATE OF DISCHARGE: 07/29/2016 FINAL DIAGNOSES: 1. Chronic obstructive pulmonary disease exacerbation with acute purulent tracheobronchitis. 2. History of atrial fibrillation. 3. Increased WBC. 4. History of cerebrovascular accident, transient ischemic attack. 5. History of gastroesophageal reflux disease. 6. Increased random blood sugar. 7. Hyperlipidemia. 8. History of pneumonia. 9. History of paroxysmal atrial fibrillation. 10. History of transient ischemic attack. 11. History of tremors. 12. History of cataracts. 13. History of hiatal hernia. 14. Restless leg syndrome. 15. Anxiety, depression, not otherwise specified. 16. History of nicotine dependence. 17. Gait dysfunction. 18. Rule out possible pulmonary fibrosis. 19. FULL CODE. DISCHARGE DISPOSITION: The patient will be discharged in a stable condition with guarded prognosis. HISTORY OF PRESENT ILLNESS: This 75-year-old woman with a past medical history of multiple medical problems was admitted with COPD acute exacerbations with acute purulent tracheobronchitis. The patient was extremely short of breath on presentation. The patient was given IV steroids, intensive bronchodilators and as well as antibiotics. Patient improved significantly. Pulmonary saw the patient and care was coordinated. Repeat chest x-ray done today this morning showed some possibly interstitial prominence, possibly pulmonary fibrosis as well. On exam, vitals are stable. CARDIOVASCULAR SYSTEM: S1, S2 muffled. RESPIRATORY: Bilateral scattered rhonchi and crackles. ABDOMEN: Soft. NERVOUS SYSTEM: No focal deficits. DISCHARGE ADVICE: 1. Diet is cardiac. 2. Activity limited until followup. 3. Follow up with Dr. De La Garza in 2 to 3 days. 4. Follow up with Dr. Valdez as recommended. Medications are: 1. Xanax 0.5 t.i.d. p.r.n. 2. Ventolin HFA 1 to 2 puffs q.i.d. p.r.n. 3. Symbicort 160/4.5 two puffs b.i.d. 4. Prozac 20 mg p.o. daily. 5. Levaquin 750 p.o. daily for 5 days. 6. Multivitamins 1 p.o. daily. 7. Habitrol 14 daily. 8. Prilosec 20 mg b.i.d. 9. Inderal 10 mg p.o. t.i.d. 10. Wellbutrin XL 150 mg p.o. daily. 11. Prednisone taper that will be 40 mg daily for 3 days, 30 for 3 days. 20 for 3 days, 10 for 3 days and then discontinue. Once again, the patient will be discharged in stable condition with guarded prognosis.
== END 2016-07-29 15:40 | disposition home or self-care (01) | DRG 192 ==
LOC: EC 07:19 → INTOOBSV 10:55 → 4MS4W 10:55 → OBSVTOIN 07-29 14:22
PROVIDERS: ADMIT Internal Medicine; ATTEND Internal Medicine
DX: J44.0 Chronic obstructive pulmonary disease with (acute) lower respiratory infection (principal); J84.10 Pulmonary fibrosis, unspecified; I48.0 Paroxysmal atrial fibrillation; E78.5 Hyperlipidemia, unspecified; G25.0 Essential tremor; F32.9 Major depressive disorder, single episode, unspecified; F41.9 Anxiety disorder, unspecified; F17.200 Nicotine dependence, unspecified, uncomplicated; G25.81 Restless legs syndrome; J20.9 Acute bronchitis, unspecified; K21.9 Gastro-esophageal reflux disease without esophagitis; J44.1 Chronic obstructive pulmonary disease with (acute) exacerbation; K44.9 Diaphragmatic hernia without obstruction or gangrene; I83.93 Asymptomatic varicose veins of bilateral lower extremities; R26.9 Unspecified abnormalities of gait and mobility; G89.29 Other chronic pain; M54.5 Low back pain; Z86.010 Personal history of colon polyps; Z98.42 Cataract extraction status, left eye; Z90.710 Acquired absence of both cervix and uterus; Z86.73 Personal history of transient ischemic attack (TIA), and cerebral infarction without residual deficits; Z87.01 Personal history of pneumonia (recurrent); Z79.899 Other long term (current) drug therapy
CPT/HCPCS: 36415; 71010; 71020; 80048; 80053; 81001; 82550; 82553; 84484; 85025; 85610; 85730; 87040; 93005; 94640; 94760; 96361; 96365; 96375; 99285

== ENCOUNTER → 2016-09-22 | Outpatient (CLI) | payer MEDICARE ==
--- NOTE | 2016-09-23 08:27 | XR ---
2 view abdomen 2 views of the abdomen submitted HISTORY: Abdominal pain Comparison the lumbar spine x-ray dated 01/28/2013 Lung bases are clear. Heart appears enlarged. No pneumoperitoneum or bowel obstruction. Air-fluid lev els are present without bowel distention. Retained fecal debris is noted. Bone mineralization is redu dodie. Degenerative changes suspected within the lumbar spine. Osteoporotic compression fracture stable at L2. There is mild spinal curvature. IMPRESSION: No acute abnormality. Correlate for fecal stasis, ileus or enteritis. Follow-up as indica angela.
== END | disposition home or self-care (01) ==
LOC: RADXRYALE 14:16
PROVIDERS: ATTEND Physician Assistant Medical
DX: R10.84 Generalized abdominal pain (principal)
CPT/HCPCS: 74020

== ENCOUNTER → 2016-09-30 | Outpatient (CLI) | payer MEDICARE ==
[2016-09-30 12:34] LABS: Blood Urea Nitrogen 13 mg/dL (7-17); Non-African American GFR(MDRD) >60 (>60 ml/min/1.73 sqM)
--- NOTE | 2016-09-30 14:36 | CT ---
EXAMINATION TYPE: CT abdomen pelvis wo/w con DATE OF EXAM: 09/30/2016 HISTORY: Abdominal pain not further specified per order. Pain and bloating per patient. CT DLP: 821.7mGycm Automated Exposure Control for Dose Reduction was Utilized. CONTRAST: CT scan of the abdomen and pelvis is performed with oral and without and with IV Contrast, patient in jected with 100 mL of Omnipaque 300. COMPARISON: CT abdomen and pelvis October 06, 2015. FINDINGS: LUNG BASES: Linear scarring or atelectasis centrally in both lungs is redemonstrated. Heart size is s table and upper limits of normal. LIVER/GB: No significant abnormality is appreciated. PANCREAS: No significant abnormality is seen. SPLEEN: No significant abnormality is seen. ADRENALS: No significant abnormality is seen. KIDNEYS: No renal stones is evident on noncontrast study. Postcontrast images show symmetric cortical medullary uptake and excretion without evidence of hydronephrosis bilaterally. There is occasional t iny hypodense subcentimeter lesions scattered throughout both kidneys felt to reflect simple cysts. BOWEL:. Small size hiatal hernia is redemonstrated and stable. The oral contrast does level of hepati c flexure. There is no suspicious small or large bowel dilatation seen. A 1.6 cm diverticulum along d uodenum on axial image 35 is stable. There is wandering cecum into the mid pelvis near axial image 68 redemonstrated. UTERUS/ADNEXA: Uterus is surgically absent. Likely remnant bilateral ovaries on axial image 69 are no t suspiciously enlarged. LYMPH NODES: No greater than 1cm abdominal or pelvic lymph nodes are appreciated. Stable slightly pro minent but not suspiciously enlarged mesenteric lymph nodes are incidentally noted. OSSEOUS STRUCTURES: Osseous structures are demineralized. Mild height loss or compression type fractu re involving superior L2 endplate redemonstrated. There is disc space narrowing with spurring and scl erosis and vacuum disc phenomenon anteriorly at L2-L3 level redemonstrated. There is slight grade 1 r etrolisthesis of L4 and L5. OTHER: Mild to borderline moderate atherosclerotic change of the abdominal aorta extending into pelvi c branch vessels is redemonstrated. Slight ectasia distally is again seen. No greater than 3 cm aneur ysmal change is evident. IMPRESSION: No significant new or acute finding is seen to account for patient's clinical symptoms. N o ascites is present. No bowel obstruction is seen.
== END | disposition home or self-care (01) ==
LOC: RADCTMAIN 11:29
PROVIDERS: ATTEND Family Medicine
DX: R10.84 Generalized abdominal pain (principal)
CPT/HCPCS: 82565; 84520; 74178; 36415; Q9967

== ENCOUNTER 2017-01-12 21:51 | Inpatient (IN) | payer MEDICARE ==
[2017-01-12] MEDS ORDERED: IPRATROPIUM-ALBUTEROL 3 ML NEB INHALATION STA (22:06)
--- NOTE | 2017-01-12 22:11 | ED ---
SOB HPI - General Chief Complaint: Shortness of Breath Stated Complaint: BARBIE Time Seen by Provider: 01/12/17 21:56 Source: patient Mode of arrival: EMS Limitations: no limitations - History of Present Illness Initial Comments: This patient is a 76-year-old woman who presents to be viral for shortness of breath. She states that the symptoms have been getting a little bit worse over the past 2-3 days. She was seen by her physician yesterday. She states that they had wanted to take an x-ray but were unable at that time. They started her on a medication that starts with the letter a but she does not recall what it is. She has had a total of 3 doses of this. She also was using albuteral and Symbicort but states that she is not feeling much better. Patient complains of wheezing, dyspnea, cough which is for most part nonproductive. Patient denies chest pain. She denies change in urination, bowel movements, leg pain or swelling. She does not complain of orthopnea. Patient states that she did stop smoking about 5 months ago MD Complaint: shortness of breath, cough Onset/Timin -: days(s) Severity: moderate Improves With: oxygen, bronchodilators Worsens With: nothing Known History Of: COPD Treatments Prior to Arrival: oxygen, bronchodilator - Related Data Home Medications Medication Instructions Recorded Confirmed FLUoxetine HCL [PROzac] 20 mg PO DAILY 12/19/14 01/12/17 Omeprazole [PriLOSEC] 20 mg PO BID 11/20/15 01/12/17 Albuterol Nebulized [Ventolin 2.5 mg INHALATION RT-Q6H PRN 07/26/16 01/12/17 Nebulized] Ascorbic Acid [Vitamin C] 500 mg PO DAILY 01/12/17 01/12/17 Budesonide-Formot 160-4.5 Mcg 2 puff INHALATION RT-BID 01/12/17 01/12/17 [Symbicort 160-4.5 Mcg Inhaler] Cholecalciferol [Vitamin D3] 1,000 unit PO DAILY 01/12/17 01/12/17 Previous Rx's Medication Instructions Recorded ALPRAZolam [Xanax] 0.5 mg PO TID PRN #0 tab 03/14/16 Albuterol Inhaler [Ventolin Hfa 1 - 2 puff INHALATION RT-Q6H PRN 03/14/16 Inhaler] #2 inhaler Propranolol [Inderal] 10 mg PO TID tab 03/14/16 Allergies Allergy/AdvReac Type Severity Reaction Status Date / Time iodine Allergy Rash/Hives Verified 01/12/17 21:57 Sulfa (Sulfonamide Allergy Rash/Hives Verified 01/12/17 21:57 Antibiotics) zolpidem tartrate Allergy Hallucinati Verified 01/12/17 21:57 [From Ambien] ons prednisone AdvReac DIZINESS Verified 01/12/17 22:19 Review of Systems ROS Statement: Those systems with pertinent positive or pertinent negative responses have been documented in the HPI. ROS Other: All systems not noted in ROS Statement are negative. Constitutional: Denies: fever, weakness Respiratory: Reports: cough, dyspnea, wheezes Cardiovascular: Denies: chest pain, palpitations, orthopnea, edema, syncope Gastrointestinal: Denies: abdominal pain, nausea, vomiting Genitourinary: Denies: dysuria, hematuria Skin: Denies: rash Neurological: Denies: headache, weakness, numbness Past Medical History Past Medical History: Atrial Fibrillation, COPD, CVA/TIA, Eye Disorder, GERD/ Reflux, Hyperlipidemia, Pneumonia Additional Past Medical History / Comment(s): 12/2015 AFib RVR converted to NSR and had lexiscan that was normal, bronchitis, essential tremors, balance issues , falls, TIA, chronic low back pain, varicose veins bilaterally, low blood pressure, R cataract, hiatal hernia, RLS. History of Any Multi-Drug Resistant Organisms: None Reported Past Surgical History: Hysterectomy Additional Past Surgical History / Comment(s): 11/27/15 EGD with bx, L cataract removed, colonoscopy with 1 benign polypectomy. Past Anesthesia/Blood Transfusion Reactions: No Reported Reaction Past Psychological History: Anxiety, Depression Smoking Status: Former smoker Past Alcohol Use History: None Reported Past Drug Use History: None Reported - Past Family History Father Family Medical History: Cancer Additional Family Medical History / Comment(s): Pt thinks father might have from stomach cancer. She was 2 yrs old when he . Sister(s) Family Medical History: Cancer Additional Family Medical History / Comment(s): Half sister with brain cancer. Mother Family Medical History: Dementia Additional Family Medical History / Comment(s): Mother had gallstones and a partial thyroidectomy for noncancerous reasons. General Exam Limitations: no limitations General appearance: alert, in no apparent distress Head exam: Present: atraumatic, normocephalic Eye exam: Present: normal appearance. Absent: scleral icterus, conjunctival injection ENT exam: Present: normal oropharynx Respiratory exam: Present: wheezes. Absent: respiratory distress, rales, rhonchi, stridor, accessory muscle use, decreased breath sounds, prolonged expiratory Cardiovascular Exam: Present: regular rate, normal rhythm, normal heart sounds. Absent: systolic murmur, diastolic murmur, rubs, gallop GI/Abdominal exam: Present: soft. Absent: distended, tenderness, guarding, rebound, mass Extremities exam: Present: normal inspection, normal capillary refill. Absent: pedal edema, calf tenderness Back exam: Present: normal inspection. Absent: CVA tenderness (R), CVA tenderness (L) Neurological exam: Present: alert Skin exam: Present: warm, dry, intact, normal color. Absent: rash Course Vital Signs 01/12/17 01/12/17 01/12/17 21:52 22:06 22:13 Temperature 98.2 F Pulse Rate 58 L 59 L Respiratory 22 16 Rate Blood Pressure 123/60 O2 Sat by Pulse 96 Oximetry 01/12/17 01/12/17 01/12/17 22:23 23:10 23:45 Temperature Pulse Rate 65 55 L 55 L Respiratory 16 Rate Blood Pressure 114/57 O2 Sat by Pulse 98 Oximetry 01/12/17 23:56 Temperature Pulse Rate 56 L Respiratory Rate Blood Pressure O2 Sat by Pulse Oximetry Medical Decision Making - Medical Decision Making Following the patient's respiratory treatments I spent a number of minutes at the bedside reviewing the results and discussing how the patient was feeling. She was feeling better, but the dyspnea returned when she is taken off of the nasal cannula oxygen.. Patient is declining the course of steroids which I did recommend because he do make her dizzy. - Lab Data Result diagrams: 01/12/17 22:02 01/12/17 22:02 Lab Results 01/12/17 01/12/17 01/12/17 Range/Units 22:02 22:02 22:02 WBC 7.8 (3.8-10.6) k/uL RBC 4.10 (3.80-5.40) m/uL Hgb 12.3 (11.4-16.0) gm/dL Hct 37.3 (34.0-46.0) % MCV 90.9 (80.0-100.0) fL MCH 30.0 (25.0-35.0) pg MCHC 33.0 (31.0-37.0) g/dL RDW 14.2 (11.5-15.5) % Plt Count 267 (150-450) k/uL Neutrophils % 59 % Lymphocytes % 26 % Monocytes % 7 % Eosinophils % 5 % Basophils % 1 % Neutrophils # 4.6 (1.3-7.7) k/uL Lymphocytes # 2.0 (1.0-4.8) k/uL Monocytes # 0.5 (0-1.0) k/uL Eosinophils # 0.4 (0-0.7) k/uL Basophils # 0.1 (0-0.2) k/uL PT (9.0-12.0) sec INR (<1.2) APTT (22.0-30.0) sec D-Dimer (<0.60) mg/L FEU Sodium 140 (137-145) mmol/L Potassium 4.2 (3.5-5.1) mmol/L Chloride 107 (98-107) mmol/L Carbon Dioxide 25 (22-30) mmol/L Anion Gap 8 mmol/L BUN 15 (7-17) mg/dL Creatinine 0.96 (0.52-1.04) mg/dL Est GFR (MDRD) Af Amer >60 (>60 ml/min/1.73 sqM) Est GFR (MDRD) Non-Af 57 (>60 ml/min/1.73 sqM) Glucose 98 (74-99) mg/dL Calcium 8.7 (8.4-10.2) mg/dL Total Bilirubin 0.2 (0.2-1.3) mg/dL AST 15 (14-36) U/L ALT 24 (9-52) U/L Alkaline Phosphatase 82 (38-126) U/L Total Creatine Kinase 39 (30-135) U/L CK-MB (CK-2) 0.7 (0.0-2.4) ng/mL CK-MB (CK-2) Rel Index 1.8 Troponin I <0.012 (0.000-0.034) ng/mL NT-Pro-B Natriuret Pep pg/mL Total Protein 5.8 L (6.3-8.2) g/dL Albumin 3.4 L (3.5-5.0) g/dL 01/12/17 01/12/17 Range/Units 22:02 22:02 WBC (3.8-10.6) k/uL RBC (3.80-5.40) m/uL Hgb (11.4-16.0) gm/dL Hct (34.0-46.0) % MCV (80.0-100.0) fL MCH (25.0-35.0) pg MCHC (31.0-37.0) g/dL RDW (11.5-15.5) % Plt Count (150-450) k/uL Neutrophils % % Lymphocytes % % Monocytes % % Eosinophils % % Basophils % % Neutrophils # (1.3-7.7) k/uL Lymphocytes # (1.0-4.8) k/uL Monocytes # (0-1.0) k/uL Eosinophils # (0-0.7) k/uL Basophils # (0-0.2) k/uL PT 10.1 (9.0-12.0) sec INR 1.0 (<1.2) APTT 24.3 (22.0-30.0) sec D-Dimer 0.37 (<0.60) mg/L FEU Sodium (137-145) mmol/L Potassium (3.5-5.1) mmol/L Chloride (98-107) mmol/L Carbon Dioxide (22-30) mmol/L Anion Gap mmol/L BUN (7-17) mg/dL Creatinine (0.52-1.04) mg/dL Est GFR (MDRD) Af Amer (>60 ml/min/1.73 sqM) Est GFR (MDRD) Non-Af (>60 ml/min/1.73 sqM) Glucose (74-99) mg/dL Calcium (8.4-10.2) mg/dL Total Bilirubin (0.2-1.3) mg/dL AST (14-36) U/L ALT (9-52) U/L Alkaline Phosphatase (38-126) U/L Total Creatine Kinase (30-135) U/L CK-MB (CK-2) (0.0-2.4) ng/mL CK-MB (CK-2) Rel Index Troponin I (0.000-0.034) ng/mL NT-Pro-B Natriuret Pep 62 pg/mL Total Protein (6.3-8.2) g/dL Albumin (3.5-5.0) g/dL - EKG Data -: EKG Interpreted by Me EKG shows normal: sinus rhythm, axis (Normal), intervals (Normal), QRS complexes (Normal) Rate: bradycardia (Rate 55 bpm) Interpretation: nonspecific ST-T wave changes Disposition Clinical Impression: Acute exacerbation of chronic obstructive airways disease Disposition: ADMITTED IP TO THIS HOSP Condition: Fair Instructions: COPD (Chronic Obstructive Pulmonary Disease) (ED) Referrals: Pablo De La Garza DO [Primary Care Provider] - 1-2 days Ja Valdez MD [STAFF PHYSICIAN] - 1-2 days
[2017-01-12 22:16] LABS: Basophils # (A) 0.1 k/uL (0-0.2); Basophils % (A) 1 %; CH 30.4; CHCM 33.7; Eosinophils # (A) 0.4 k/uL (0-0.7); Eosinophils % (A) 5 %; HCT 37.3 % (34.0-46.0); HGB 12.3 gm/dL (11.4-16.0); Luc # (Auto) 0.21; Luc % (Auto) 3; Lymphocytes % (A) 26 %; MCV 90.9 fL (80.0-100.0); Mean Platelet Volume 7.3; Monocytes # (A) 0.5 k/uL (0-1.0); Monocytes % (A) 7 %; Neutrophils # (A) 4.6 k/uL (1.3-7.7); Neutrophils % (A) 59 %; RDW 14.2 % (11.5-15.5); WBC 7.8 k/uL (3.8-10.6); WBC (Perox) 8.22
[2017-01-12 22:25] LABS: ALT 24 U/L (9-52); AST 15 U/L (14-36); Alkaline Phosphatase 82 U/L (38-126); Anion Gap 8 mmol/L; Blood Urea Nitrogen 15 mg/dL (7-17); Calcium 8.7 mg/dL (8.4-10.2); Carbon Dioxide 25 mmol/L (22-30); Chloride 107 mmol/L (98-107); Glucose 98 mg/dL (74-99); Non-African American GFR(MDRD) 57 (>60 ml/min/1.73 sqM); Potassium 4.2 mmol/L (3.5-5.1); Sodium 140 mmol/L (137-145); Total Bilirubin 0.2 mg/dL (0.2-1.3); Total Protein 5.8 g/dL (6.3-8.2)
[2017-01-12 22:36] LABS: Creatine Kinase 39 U/L (30-135)
[2017-01-12 22:37] LABS: Partial Thromboplastin Time 24.3 sec (22.0-30.0); Prothrombin Time 10.1 sec (9.0-12.0)
[2017-01-12 22:49] LABS: Creatine Kinase MB 0.7 ng/mL (0.0-2.4); Troponin I <0.012 ng/mL (0.000-0.034)
--- NOTE | 2017-01-12 23:05 | XR ---
EXAM: XR Chest, 2 Views CLINICAL HISTORY: Reason: difficulty breathing TECHNIQUE: Frontal and lateral views of the chest. COMPARISON: 07/26/16 FINDINGS: Lungs: Mild hyperinflation of the lungs, as on prior. Pleural space: Unremarkable. No pneumothorax. Heart: Stable cardiomediastinal silhouette. Stable opacity at the right lung base may be related to pericardial fat pad, diaphragmatic eventration or other etiology. Favor fat pad based on the lateral view. Mediastinum: Unremarkable. Bones/joints: Unremarkable. IMPRESSION: 1. No evidence of acute cardiopulmonary disease. 2. Mild hyperinflation of the lungs, similar to prior. May be related to COPD
[2017-01-12] MEDS ORDERED: predniSONE 20 MG TAB PO STA (23:13)
[2017-01-12] MEDS ORDERED: ALBUTEROL NEBULIZED 2.5 MG/3 ML INHALATION STA (23:13)
[2017-01-13] MEDS ORDERED: IPRATROPIUM-ALBUTEROL 3 ML NEB INHALATION PRN (00:11)
[2017-01-13] MEDS ORDERED: ALPRAZolam 0.5 MG TAB PO PRN (00:14)
[2017-01-13] MEDS ORDERED: ALBUTEROL NEBULIZED 2.5 MG/3 ML INHALATION PRN (00:14)
[2017-01-13] MEDS ORDERED: SODIUM CHLORIDE 0.9% 1,000 ML IV SCH (00:15)
[2017-01-13] MEDS ORDERED: ACETAMINOPHEN TAB 325 MG TAB PO STA (00:17)
[2017-01-13] MEDS ORDERED: ACETAMINOPHEN TAB 325 MG TAB PO PRN (00:17)
[2017-01-13 03:57] VITALS: BMI 27.4
[2017-01-13] MEDS: PANTOPRAZOLE 40 MG TABLET PO SCH ×2 (07:54→17:38)
[2017-01-13] MEDS: PROPRANOLOL 10 MG TAB PO SCH ×2 (07:54→15:50)
[2017-01-13] MEDS ORDERED: SYMBICORT 160-4.5 MCG INHALER INHALATION SCH (08:00)
[2017-01-13] MEDS ORDERED: BUDESONIDE 0.5 MG/2 ML NEBU INHALATION SCH (08:00)
[2017-01-13 08:01] VITALS: TEMP 97.6
[2017-01-13] MEDS ORDERED: FLUoxetine HCL 20 MG CAP PO SCH (09:00)
[2017-01-13] MEDS ORDERED: CHOLECALCIFEROL 1,000 UNIT TAB PO SCH (09:00)
[2017-01-13] MEDS ORDERED: ASCORBIC ACID 500 MG TAB PO SCH (09:00)
[2017-01-13] MEDS ORDERED: BUTALB/APAP/CAFF 50-325-40MG TAB PO PRN (10:03)
[2017-01-13] MEDS ORDERED: predniSONE 20 MG TAB PO SCH (10:15)
[2017-01-13] MEDS ORDERED: DOXYCYCLINE 50 MG CAP PO SCH (10:15)
--- NOTE | 2017-01-13 10:27 | P.HPIM ---
History of Present Illness 76-year-old came in with compensative shortness of breath does have history of COPD he quit smoking about 6 months ago comparing of cough without any sputum production patient does not have any pneumonia on the check stay chest x-ray does not use oxygen at home patient is concerned about oral steroids because of their side effects unable to convince her and patient is clinically doing well Late in the hallway we'll give her a dose of steroid. She is doing okay patient will be discharged on overdose tapering doses of steroids today if cleared by pulmonology. Patient will be started on antibiotics for bronchitis Review of Systems REVIEW OF SYSTEMS: CONSTITUTIONAL: No fever, no malaise, no fatigue. HEENT: No recent visual problems or hearing problems. Denied any sore throat. CARDIOVASCULAR: No chest pain, orthopnea, PND, no palpitations, no syncope. PULMONARY: no hemoptysis. GASTROINTESTINAL: No diarrhea, no nausea, no vomiting, no abdominal pain. Normoactive bowel sounds. NEUROLOGICAL: No headaches, no weakness, no numbness. HEMATOLOGICAL: Denies any bleeding or petechiae. GENITOURINARY: Denies any burning micturition, frequency, or urgency. MUSCULOSKELETAL/RHEUMATOLOGICAL: Denies any joint pain, swelling, or any muscle pain. ENDOCRINE: Denies any polyuria or polydipsia. The rest of the 14-point review of systems is negative. Past Medical History Past Medical History: Atrial Fibrillation, COPD, CVA/TIA, Eye Disorder, GERD/ Reflux, Hyperlipidemia, Pneumonia Additional Past Medical History / Comment(s): 12/2015 AFib RVR converted to NSR and had lexiscan that was normal, bronchitis, essential tremors, balance issues , falls, TIA, chronic low back pain, varicose veins bilaterally, low blood pressure, R cataract, hiatal hernia, RLS.Seasonal allergies History of Any Multi-Drug Resistant Organisms: None Reported Past Surgical History: Hysterectomy Additional Past Surgical History / Comment(s): 11/27/15 EGD with bx, L cataract removed, colonoscopy with 1 benign polypectomy. Past Anesthesia/Blood Transfusion Reactions: No Reported Reaction Past Psychological History: Anxiety, Depression Additional Psychological History / Comment(s): Pt's son, Sonu lives with her. She uses a cane or walker to ambulate. She drives. Her blessing, Rita comes and cleans home on occasion. she has had [facility] home care in the past. Smoking Status: Former smoker Past Alcohol Use History: None Reported Additional Past Alcohol Use History / Comment(s): Pt states she started smoking in her early 20's. She quit for several yrs, during her pregnancies and when her children were young. She currently smokes 1/2 ppd. Past Drug Use History: None Reported - Past Family History Father Family Medical History: Cancer Additional Family Medical History / Comment(s): Pt thinks father might have from stomach cancer. She was 2 yrs old when he . Sister(s) Family Medical History: Cancer Additional Family Medical History / Comment(s): Half sister with brain cancer. Mother Family Medical History: Dementia Additional Family Medical History / Comment(s): Mother had gallstones and a partial thyroidectomy for noncancerous reasons. Medications and Allergies Home Medications Medication Instructions Recorded Confirmed Type FLUoxetine HCL [PROzac] 20 mg PO DAILY 12/19/14 01/12/17 History Omeprazole [PriLOSEC] 20 mg PO BID 11/20/15 01/12/17 History ALPRAZolam [Xanax] 0.5 mg PO TID PRN #0 tab 03/14/16 01/12/17 Rx Albuterol Inhaler [Ventolin Hfa 1 - 2 puff INHALATION RT-Q6H PRN 03/14/16 Rx Inhaler] #2 inhaler Propranolol [Inderal] 10 mg PO TID tab 03/14/16 01/12/17 Rx Albuterol Nebulized [Ventolin 2.5 mg INHALATION RT-Q6H PRN 07/26/16 01/12/17 History Nebulized] Ascorbic Acid [Vitamin C] 500 mg PO DAILY 01/12/17 01/12/17 History Budesonide-Formot 160-4.5 Mcg 2 puff INHALATION RT-BID 01/12/17 01/12/17 History [Symbicort 160-4.5 Mcg Inhaler] Cholecalciferol [Vitamin D3] 1,000 unit PO DAILY 01/12/17 01/12/17 History Doxycycline Monohydrate [Monodox] 100 mg PO Q12HR #10 cap 01/13/17 Rx Tiotropium [place] [Spiriva] 1 cap INHALATION DAILY #1 device 01/13/17 Rx predniSONE 10 mg PO DAILY #30 tab 01/13/17 Rx Allergies Allergy/AdvReac Type Severity Reaction Status Date / Time iodine Allergy Rash/Hives Verified 01/12/17 21:57 Sulfa (Sulfonamide Allergy Rash/Hives Verified 01/12/17 21:57 Antibiotics) zolpidem tartrate Allergy Hallucinati Verified 01/12/17 21:57 [From Humera] ons prednisone AdvReac DIZINESS Verified 01/12/17 22:19 Physical Exam Vitals: Vital Signs Temp Pulse Pulse Resp BP BP Pulse Ox 01/13/17 09:51 60 01/13/17 09:40 60 01/13/17 08:00 68 17 01/13/17 07:20 97.6 F 68 17 119/66 96 01/13/17 02:48 97 F L 54 L 16 120/70 95 01/13/17 02:16 56 L 16 106/63 97 01/13/17 00:26 56 L 16 116/58 98 01/12/17 23:56 56 L 01/12/17 23:45 55 L 01/12/17 23:10 55 L 16 114/57 98 01/12/17 22:23 65 01/12/17 22:13 59 L 01/12/17 22:06 16 01/12/17 21:52 98.2 F 58 L 22 123/60 96 Intake and Output 01/12/17 01/13/17 01/13/17 22:59 06:59 14:59 Intake Total 450 Balance 450 Intake: Oral 450 Other: Voiding Method Toilet Toilet # Voids 1 Weight 68.039 kg 68.039 kg PHYSICAL EXAMINATION: GENERAL: The patient is alert and oriented x3, not in any acute distress. Well developed, well nourished. HEENT: Pupils are round and equally reacting to light. EOMI. No scleral icterus. No conjunctival pallor. Normocephalic, atraumatic. No pharyngeal erythema. No thyromegaly. CARDIOVASCULAR: S1 and S2 present. No murmurs, rubs, or gallops. PULMONARY: Decreased air by a air entry into bilateral lung palencai minimal expiratory wheezing was appreciated no crackles were appreciated. ABDOMEN: Soft, nontender, nondistended, normoactive bowel sounds. No palpable organomegaly. MUSCULOSKELETAL: No joint swelling or deformity. EXTREMITIES: No cyanosis, clubbing, or pedal edema. NEUROLOGICAL: Gross neurological examination did not reveal any focal deficits. SKIN: No rashes. Results CBC & Chem 7: 01/12/17 22:02 01/12/17 22:02 Labs: Abnormal Lab Results - Last 24 Hours (Table) 01/12/17 Range/Units 22:02 Total Protein 5.8 L (6.3-8.2) g/dL Albumin 3.4 L (3.5-5.0) g/dL Thrombosis Risk Factor Assmnt - Choose All That Apply Any of the Below Risk Factors Present?: Yes Each Factor Represents 1 point: Abnormal pulmonary function (COPD), Obesity ( BMI >25), Varicose veins Other Risk Factors: Yes Each Risk Factor Represents 3 Points: Age 75 years or older Other congenital or acquired thrombophilia - If yes, enter type in comment: No Thrombosis Risk Factor Assessment Total Risk Factor Score: 6 Thrombosis Risk Factor Assessment Level: High Risk Assessment and Plan Plan: #1 COPD: With acute exacerbation patient will be started on oral steroids, inhalation treatments if clinically doing well will be discharged later in the day and if cleared by pulmonology patient will be started on doxycycline. #2 acute bronchitis #3 gases patient reflux disease for which we'll continue with Prilosec at home. #4 depression #5 CVA TIA in the past #6 hyperlipidemia For above-mentioned chronic medical problems patient will be continued on her home medications.
--- NOTE | 2017-01-13 10:28 | P.DS ---
Providers Date of admission: 01/13/17 00:11 Attending physician: Rhys Hernandez Consults: 01/13/17 00:11 Consult Physician Routine Consulting Provider: Ja Valdez Consult Reason/Comments: COPD exac. Do you want consulting provider notified?: Yes [facility] Course: Please refer to my HPI Patient Condition at Discharge: Fair Plan - Discharge Summary New Discharge Prescriptions: New predniSONE 10 mg PO DAILY #30 tab Tiotropium [place] [Spiriva] 1 cap INHALATION DAILY #1 device Doxycycline Monohydrate [Monodox] 100 mg PO Q12HR #10 cap No Action FLUoxetine HCL [PROzac] 20 mg PO DAILY Omeprazole [PriLOSEC] 20 mg PO BID ALPRAZolam [Xanax] 0.5 mg PO TID PRN #0 tab PRN Reason: Anxiety Propranolol [Inderal] 10 mg PO TID tab Albuterol Inhaler [Ventolin Hfa Inhaler] 1 - 2 puff INHALATION RT-Q6H PRN #2 inhaler PRN Reason: Shortness Of Breath Albuterol Nebulized [Ventolin Nebulized] 2.5 mg INHALATION RT-Q6H PRN PRN Reason: Shortness Of Breath Cholecalciferol [Vitamin D3] 1,000 unit PO DAILY Ascorbic Acid [Vitamin C] 500 mg PO DAILY Budesonide-Formot 160-4.5 Mcg [Symbicort 160-4.5 Mcg Inhaler] 2 puff INHALATION RT-BID Discharge Medication List FLUoxetine HCL [PROzac] 20 mg PO DAILY 12/19/14 [History] Omeprazole [PriLOSEC] 20 mg PO BID 11/20/15 [History] ALPRAZolam [Xanax] 0.5 mg PO TID PRN #0 tab 03/14/16 [Rx] Albuterol Inhaler [Ventolin Hfa Inhaler] 1 - 2 puff INHALATION RT-Q6H PRN #2 inhaler 03/14/16 [Rx] Propranolol [Inderal] 10 mg PO TID tab 03/14/16 [Rx] Albuterol Nebulized [Ventolin Nebulized] 2.5 mg INHALATION RT-Q6H PRN 07/26/16 [ History] Ascorbic Acid [Vitamin C] 500 mg PO DAILY 01/12/17 [History] Budesonide-Formot 160-4.5 Mcg [Symbicort 160-4.5 Mcg Inhaler] 2 puff INHALATION RT-BID 01/12/17 [History] Cholecalciferol [Vitamin D3] 1,000 unit PO DAILY 01/12/17 [History] Doxycycline Monohydrate [Monodox] 100 mg PO Q12HR #10 cap 01/13/17 [Rx] Tiotropium [place] [Spiriva] 1 cap INHALATION DAILY #1 device 01/13/17 [Rx] predniSONE 10 mg PO DAILY #30 tab 01/13/17 [Rx] Follow up Appointment(s)/Referral(s): Pablo De La Garza DO [Primary Care Provider] - 3 Days Ja Valdez MD [STAFF PHYSICIAN] - 3 Days Patient Instructions/Handouts: COPD (Chronic Obstructive Pulmonary Disease) (ED ) Discharge Disposition: HOME SELF-CARE
[2017-01-13 15:57] VITALS: PULSE 64; RESP 18
[2017-01-13 15:58] VITALS: BP 100/52
--- NOTE | 2017-01-13 16:22 | P.CNPUL ---
History of Present Illness Consult date: 01/13/17 Reason for consult: COPD History of present illness: A 76-year-old female patient, known history of advanced COPD maintained on a combination of Spiriva and Symbicort on outpatient basis. The patient also has history of CVA/TIA, HX fibrillation, migraine headaches and essential tremors. The patient comes into the hospital for worsening shortness of breath. The patient apparently quit smoking approximately 6 months ago. She is having increased cough chest congestion and chest tightness and wheezing typically of COPD exacerbation. She had a chest x-ray at time of admission and it showed no evidence of any acute cardio pulmonary disease. There was mild hyperinflation of the lungs similar to prior exam. The patient has background COPD. Note that the patient was in the hospital back in July 2016 for a acute COPD exacerbation and she was treated accordingly. She claims that she has been compliant with history medications. No chest pain. No angina. No pleural effusions. No pulmonary embolism. No other complaints otherwise. Review of Systems Constitutional: Reports fatigue, Reports poor appetite, Reports weakness Eyes: denies blurred vision, denies bulging eye, denies decreased vision Ears: deny: decreased hearing, ear discharge, earache Ears, nose, mouth and throat: Denies headache, Denies sore throat Cardiovascular: Reports chest pain, Reports dyspnea on exertion, Reports shortness of breath Respiratory: Reports cough, Reports dyspnea, Reports wheezing Gastrointestinal: Denies abdominal pain, Denies diarrhea, Denies nausea, Denies vomiting Genitourinary: Denies dysuria, Denies hematuria Musculoskeletal: Denies myalgias Musculoskeletal: absent: ankle pain, ankle stiffness, ankle swelling Integumentary: Denies pruritus, Denies rash Neurological: Denies numbness, Denies weakness Psychiatric: Denies anxiety, Denies depression Endocrine: Denies fatigue, Denies weight change Past Medical History Past Medical History: Atrial Fibrillation, COPD, CVA/TIA, Eye Disorder, GERD/ Reflux, Hyperlipidemia, Pneumonia Additional Past Medical History / Comment(s): COPD, chronic atrial fibrillation , essential tremors, previous TIA, chronic back pain, varicose veins, hiatal hernia, restless leg syndrome, seasonal ALLERGIES, hyperlipidemia History of Any Multi-Drug Resistant Organisms: None Reported Past Surgical History: Hysterectomy Additional Past Surgical History / Comment(s): 11/27/15 EGD with bx, L cataract removed, colonoscopy with 1 benign polypectomy. Past Anesthesia/Blood Transfusion Reactions: No Reported Reaction Past Psychological History: Anxiety, Depression Additional Psychological History / Comment(s): Pt's son, Sonu lives with her. She uses a cane or walker to ambulate. She drives. Her blessing, Rita comes and cleans home on occasion. she has had [facility] home care in the past. Smoking Status: Former smoker Past Alcohol Use History: None Reported Additional Past Alcohol Use History / Comment(s): Pt states she started smoking in her early 20's. She quit for several yrs, during her pregnancies and when her children were young. She currently smokes 1/2 ppd. Past Drug Use History: None Reported - Past Family History Father Family Medical History: Cancer Additional Family Medical History / Comment(s): Pt thinks father might have from stomach cancer. She was 2 yrs old when he . Sister(s) Family Medical History: Cancer Additional Family Medical History / Comment(s): Half sister with brain cancer. Mother Family Medical History: Dementia Additional Family Medical History / Comment(s): Mother had gallstones and a partial thyroidectomy for noncancerous reasons. Medications and Allergies Home Medications Medication Instructions Recorded Confirmed Type FLUoxetine HCL [PROzac] 20 mg PO DAILY 12/19/14 01/12/17 History Omeprazole [PriLOSEC] 20 mg PO BID 11/20/15 01/12/17 History ALPRAZolam [Xanax] 0.5 mg PO TID PRN #0 tab 03/14/16 01/12/17 Rx Albuterol Inhaler [Ventolin Hfa 1 - 2 puff INHALATION RT-Q6H PRN 03/14/16 Rx Inhaler] #2 inhaler Propranolol [Inderal] 10 mg PO TID tab 03/14/16 01/12/17 Rx Albuterol Nebulized [Ventolin 2.5 mg INHALATION RT-Q6H PRN 07/26/16 01/12/17 History Nebulized] Ascorbic Acid [Vitamin C] 500 mg PO DAILY 01/12/17 01/12/17 History Budesonide-Formot 160-4.5 Mcg 2 puff INHALATION RT-BID 01/12/17 01/12/17 History [Symbicort 160-4.5 Mcg Inhaler] Cholecalciferol [Vitamin D3] 1,000 unit PO DAILY 01/12/17 01/12/17 History Doxycycline Monohydrate [Monodox] 100 mg PO Q12HR #10 cap 01/13/17 Rx Tiotropium [place] [Spiriva] 1 cap INHALATION DAILY #1 device 01/13/17 Rx predniSONE 10 mg PO DAILY #30 tab 01/13/17 Rx Allergies Allergy/AdvReac Type Severity Reaction Status Date / Time iodine Allergy Rash/Hives Verified 01/12/17 21:57 Sulfa (Sulfonamide Allergy Rash/Hives Verified 01/12/17 21:57 Antibiotics) zolpidem tartrate Allergy Hallucinati Verified 01/12/17 21:57 [From Ambien] ons prednisone AdvReac DIZINESS Verified 01/12/17 22:19 Physical Exam Vitals: Vital Signs Temp Pulse Pulse Resp BP BP Pulse Ox 01/13/17 15:55 64 18 01/13/17 15:00 64 100/52 01/13/17 09:51 60 01/13/17 09:40 60 01/13/17 08:00 68 17 01/13/17 07:20 97.6 F 68 17 119/66 96 01/13/17 02:48 97 F L 54 L 16 120/70 95 01/13/17 02:16 56 L 16 106/63 97 01/13/17 00:26 56 L 16 116/58 98 01/12/17 23:56 56 L 01/12/17 23:45 55 L 01/12/17 23:10 55 L 16 114/57 98 01/12/17 22:23 65 01/12/17 22:13 59 L 01/12/17 22:06 16 01/12/17 21:52 98.2 F 58 L 22 123/60 96 Intake and Output 01/13/17 01/13/17 01/13/17 06:59 14:59 22:59 Intake Total 450 1080 Balance 450 1080 Intake: Intake, IV Titration 1080 Amount Sodium Chloride 0.9% 1, 1080 000 ml @ 20 mls/hr IV . Q24H [facility] Rx#:[id number] Oral 450 Other: Voiding Method Toilet Toilet Toilet # Voids 1 3 Weight 68.039 kg GENERAL EXAM: Alert, active, comfortable in no apparent distress. Essential tremors. HEAD: Normocephalic. EYES: Normal reaction of pupils, equal size. NOSE: Clear with pink turbinates. THROAT: No erythema or exudates. NECK: No masses, no JVD. CHEST: No chest wall deformity. LUNGS: Equal air entry with bilateral wheezing. Diminished. CVS: S1 and S2 normal with no audible murmurs, regular rhythm. ABDOMEN: No hepatosplenomegaly, normal bowel sounds, no guarding or rigidity. SPINE: No scoliosis or deformity SKIN: No rashes CENTRAL NERVOUS SYSTEM: No focal deficits, tone is normal in all 4 extremities. Extremities: There is no significant peripheral edema. No clubbing, no cyanosis. Peripheral pulses are intact. Results - Laboratory Findings CBC and BMP: 01/12/17 22:02 01/12/17 22:02 PT/INR, D-dimer PT 10.1 sec (9.0-12.0) 01/12/17 22:02 INR 1.0 (<1.2) 01/12/17 22:02 D-Dimer 0.37 mg/L FEU (<0.60) 01/12/17 22:02 Abnormal lab findings: Abnormal Labs 01/12/17 22:02 Total Protein 5.8 L Albumin 3.4 L - Diagnostic Findings Chest x-ray: image reviewed Assessment and Plan Plan: Impression: #1 Acute exacerbation of COPD with secondary shortness of breath. Chest x-ray is free of any acute pulmonary infiltration. Clinically the patient improved with a combination of bronchodilators and systemic steroids. #2 Significant 50+ pack per day smoking history. #3 Essential tremors. #4 Paroxysmal atrial fibrillation. Current rhythm is sinus bradycardia #5 History of CVA/TIA. #6 Hyperlipidemia. #7 Gastroesophageal reflux disease. #8 Restless leg syndrome. #9 History of anxiety/depression. #10 Gastroesophageal reflux disease. Plan Agree on the current treatment. Taper the patient to a prednisone burst taper. Outpatient medication included a combination of Spiriva and Symbicort. Need to assess this patient's needs for home O2. The patient's may need O2 if she demonstrates significant oxygen saturation on room air either with activity or at rest. Outpatient follow-up regarding her COPD. She has an upcoming appointment to see me in the office in a week's time.
== END 2017-01-13 18:15 | disposition home or self-care (01) | DRG 192 ==
LOC: EC 21:51 → 5MS5E 01-13 00:11
PROVIDERS: ADMIT Hospitalist; ATTEND Hospitalist
DX: J44.1 Chronic obstructive pulmonary disease with (acute) exacerbation (principal); I48.0 Paroxysmal atrial fibrillation; I48.2 Chronic atrial fibrillation; J20.9 Acute bronchitis, unspecified; J44.0 Chronic obstructive pulmonary disease with (acute) lower respiratory infection; K21.9 Gastro-esophageal reflux disease without esophagitis; G43.909 Migraine, unspecified, not intractable, without status migrainosus; G25.0 Essential tremor; E78.5 Hyperlipidemia, unspecified; G89.29 Other chronic pain; F41.9 Anxiety disorder, unspecified; F32.9 Major depressive disorder, single episode, unspecified; J30.2 Other seasonal allergic rhinitis; I83.93 Asymptomatic varicose veins of bilateral lower extremities; R53.1 Weakness; R29.6 Repeated falls; G25.81 Restless legs syndrome; K44.9 Diaphragmatic hernia without obstruction or gangrene; M54.5 Low back pain; Z87.891 Personal history of nicotine dependence; Z86.79 Personal history of other diseases of the circulatory system; Z88.2 Allergy status to sulfonamides; Z88.8 Allergy status to other drugs, medicaments and biological substances; Z86.73 Personal history of transient ischemic attack (TIA), and cerebral infarction without residual deficits; Z79.899 Other long term (current) drug therapy; Z80.8 Family history of malignant neoplasm of other organs or systems; Z79.51 Long term (current) use of inhaled steroids; Z87.01 Personal history of pneumonia (recurrent); Z86.19 Personal history of other infectious and parasitic diseases; Z87.09 Personal history of other diseases of the respiratory system; Z86.010 Personal history of colon polyps; Z91.041 Radiographic dye allergy status; Z91.81 History of falling; Z90.710 Acquired absence of both cervix and uterus; Z98.42 Cataract extraction status, left eye; Z80.0 Family history of malignant neoplasm of digestive organs; Z83.49 Family history of other endocrine, nutritional and metabolic diseases
CPT/HCPCS: 36415; 71020; 80053; 82550; 82553; 83880; 84484; 85025; 85379; 85610; 85730; 93005; 94640; 99285

== ENCOUNTER → 2017-06-01 | Outpatient (CLI) | payer MEDICARE ==
--- NOTE | 2017-06-02 08:24 | US ---
EXAMINATION TYPE: US thyroid st tissue head/neck DATE OF EXAM: 06/01/2017 COMPARISON: NONE CLINICAL HISTORY: R13.10 Dysphagia J02.9 Pharyngitis. GLAND SIZE: Right Lobe: 4.7 x 1.9 x 1.8 cm Overall Parenchyma: heterogenous Left Lobe: 4.6 x 1.7 x 1.4 cm Overall Parenchyma: heterogeneous Isthmus Thickness: 0.3 cm NODULES RIGHT: # of nodules measured on right: 1. 1.5 X 1.4 x 1.0 cm mixed nodule at the mid pole with well-defined margins. This nodule is wider than tall and shows no intranodular vascularity. Prior size: no prior 2. 0.4 X 0.4 x 0.4 cm mixed nodule at the upper pole with well-defined margins; . This nodule is ro und and shows no intranodular vascularity. Prior size: no prior LEFT: # of nodules measured on left: 0 heterogenous appearance to lobe ISTHMUS: # of nodules measured in the isthmus: 0 Bilateral neck scanned, no evidence of lymphadenopathy. IMPRESSION: 1. Right thyroid lobe nodule.
== END | disposition home or self-care (01) ==
LOC: RADUSWWP 17:04
PROVIDERS: ATTEND Family Medicine
DX: E04.1 Nontoxic single thyroid nodule (principal); J02.9 Acute pharyngitis, unspecified; R13.10 Dysphagia, unspecified
CPT/HCPCS: 76536

== ENCOUNTER → 2017-06-29 | Outpatient (CLI) | payer MEDICARE ==
--- NOTE | 2017-06-29 10:05 | MR ---
EXAMINATION TYPE: MR cervical spine wo con DATE OF EXAM: 06/29/2017 COMPARISON: NONE HISTORY: Dysphagia, unspecified TECHNIQUE: Multiplanar, multisequence images of the cervical spine were acquired. C2-C3: No disc herniation or canal stenosis. No foraminal encroachment. C3-C4: Zzbk-dh-icruyroo degenerative change. There is mild facet arthropathy and uncovertebral joint hypertrophy but no canal stenosis or foraminal encroachment. No disc herniation. C4-C5: Mild degenerative disc disease. No focal herniation. There is mild uncovertebral joint hypertr ophy but no canal stenosis. Neural foramina are patent. Mild facet arthropathy. C5-C6: Severe degenerative disc disease with discogenic marrow changes. There is broad-based central disc bulging which results in mild effacement of thecal and abuts the anterior margin of the spinal c ord. Mild hypertrophic change of the facets and uncovertebral joints. Neural foramina patent. C6-C7: No disc herniation or canal stenosis. No foraminal encroachment. Minimal right paracentral dis c bulging. C7-T1: No evidence for degenerative disc disease. No disc bulge/herniation or protrusion. No Canal stenosis. Foramina are patent bilaterally. Cervical segments are intact. There is normal alignment. Cervical spinal cord is of normal signal. Craniovertebral junction relationships are within normal limits. Bilateral thyroid nodules are note d with the largest on the right measuring approximately 1.5 cm. IMPRESSION: Multilevel degenerative disc disease with the most marked findings at C5-C6 with severe degenerative disc disease and discogenic marrow changes. Mild broad-based central disc bulging results in effaceme nt of thecal sac and abuts the anterior margin of the spinal cord without displacement or foraminal e ncroachment.
== END | disposition home or self-care (01) ==
LOC: RADMRIMAIN 09:17
PROVIDERS: ATTEND Family Medicine
DX: M50.222 Other cervical disc displacement at C5-C6 level (principal); M50.322 Other cervical disc degeneration at C5-C6 level
CPT/HCPCS: 72141

== ENCOUNTER 2017-08-24 15:50 | Emergency (ER) | payer MEDICARE ==
[2017-08-24] MEDS ORDERED: IPRATROPIUM 0.5 MG/2.5 ML NEBU INHALATION STA (18:19)
[2017-08-24] MEDS ORDERED: methylPREDNISolone SOD SUCCI 125 MG/2 ML VIAL IV STA (18:19)
[2017-08-24] MEDS ORDERED: ALBUTEROL NEBULIZED 2.5 MG/3 ML INHALATION STA (18:19)
--- NOTE | 2017-08-24 18:26 | ED ---
General Adult HPI - General Chief complaint: Shortness of Breath Stated complaint: BARBIE/trouble walking far Time Seen by Provider: 08/24/17 17:46 Source: patient, RN notes reviewed, old records reviewed Mode of arrival: wheelchair Limitations: no limitations - History of Present Illness Initial comments: 76 yo female presents with 4 days of worsening dyspnea. Patient does have history of COPD, she admits to worsening cough. Denies fever or chills. Denies central chest pain. She states she does have intermittent lower leg swelling which is currently improved from baseline. No history of heart failure. States her cough is nonproductive. She has been taking her nebulized breathing treatments at home with minimal relief. She states that approximately one year ago she had a similar episode which was her COPD. She feels this is very similar. - Related Data Home Medications Medication Instructions Recorded Confirmed FLUoxetine HCL [PROzac] 20 mg PO DAILY 12/19/14 08/24/17 Albuterol Nebulized [Ventolin 2.5 mg INHALATION RT-Q6H PRN 07/26/16 08/24/17 Nebulized] Ascorbic Acid [Vitamin C] 500 mg PO DAILY 01/12/17 08/24/17 Budesonide-Formot 160-4.5 Mcg 2 puff INHALATION RT-BID 01/12/17 08/24/17 [Symbicort 160-4.5 Mcg Inhaler] Cholecalciferol [Vitamin D3] 1,000 unit PO DAILY 01/12/17 08/24/17 Albuterol Sulfate [Proair Hfa] 2 puff INHALATION RT-Q4H PRN 08/24/17 08/24/17 HYDROcodone/APAP 5-325MG [[place] 1 tab PO BID PRN 08/24/17 08/24/17 5-325] Montelukast Sodium [Singulair] 10 mg PO DAILY 08/24/17 08/24/17 Omeprazole 40 mg PO DAILY 08/24/17 08/24/17 Previous Rx's Medication Instructions Recorded ALPRAZolam [Xanax] 0.5 mg PO TID PRN #0 tab 03/14/16 Propranolol [Inderal] 10 mg PO TID tab 03/14/16 Azithromycin [Zithromax Z-pack] 0 mg PO DIRECTED #6 tab 08/24/17 methylPREDNISolone Dose Pack 4 mg PO DIRECTED #21 package 08/24/17 [Medrol Dose Pack] predniSONE 50 mg PO DAILY #5 tab 08/24/17 Allergies Allergy/AdvReac Type Severity Reaction Status Date / Time iodine Allergy Rash/Hives Verified 08/24/17 18:41 Sulfa (Sulfonamide Allergy Rash/Hives Verified 08/24/17 18:41 Antibiotics) zolpidem tartrate Allergy Hallucinati Verified 08/24/17 18:41 [From Ambien] ons prednisone AdvReac DIZINESS Verified 08/24/17 18:41 Review of Systems ROS Statement: Those systems with pertinent positive or pertinent negative responses have been documented in the HPI. ROS Other: All systems not noted in ROS Statement are negative. Past Medical History Past Medical History: Atrial Fibrillation, COPD, CVA/TIA, Eye Disorder, GERD/ Reflux, Hyperlipidemia, Pneumonia Additional Past Medical History / Comment(s): COPD, chronic atrial fibrillation , essential tremors, previous TIA, chronic back pain, varicose veins, hiatal hernia, restless leg syndrome, seasonal ALLERGIES, hyperlipidemia History of Any Multi-Drug Resistant Organisms: None Reported Past Surgical History: Hysterectomy Additional Past Surgical History / Comment(s): 11/27/15 EGD with bx, L cataract removed, colonoscopy with 1 benign polypectomy. Past Anesthesia/Blood Transfusion Reactions: No Reported Reaction Past Psychological History: Anxiety, Depression Smoking Status: Former smoker Past Alcohol Use History: None Reported Past Drug Use History: None Reported - Past Family History Father Family Medical History: Cancer Additional Family Medical History / Comment(s): Pt thinks father might have from stomach cancer. She was 2 yrs old when he . Sister(s) Family Medical History: Cancer Additional Family Medical History / Comment(s): Half sister with brain cancer. Mother Family Medical History: Dementia Additional Family Medical History / Comment(s): Mother had gallstones and a partial thyroidectomy for noncancerous reasons. General Exam Limitations: no limitations General appearance: alert, in no apparent distress Head exam: Present: atraumatic, normocephalic Eye exam: Present: normal appearance, PERRL ENT exam: Present: normal exam. Absent: normal oropharynx Neck exam: Present: normal inspection. Absent: tenderness, meningismus Respiratory exam: Present: wheezes, rhonchi. Absent: respiratory distress Cardiovascular Exam: Present: regular rate, normal rhythm GI/Abdominal exam: Present: soft. Absent: distended, tenderness External exam: Present: normal external exam Extremities exam: Present: normal inspection, full ROM, pedal edema (trace) Neurological exam: Present: alert, oriented X3, CN II-XII intact. Absent: motor sensory deficit Psychiatric exam: Present: normal affect, normal mood Skin exam: Present: warm, dry, intact. Absent: cyanosis, diaphoretic Course Vital Signs 08/24/17 08/24/17 08/24/17 15:58 18:47 19:30 Temperature 97.7 F Pulse Rate 74 64 60 Respiratory 20 20 Rate Blood Pressure 110/55 110/56 O2 Sat by Pulse 95 99 Oximetry 08/24/17 08/24/17 19:50 20:03 Temperature Pulse Rate 66 65 Respiratory 18 Rate Blood Pressure 104/59 O2 Sat by Pulse 98 Oximetry EKG Findings - EKG Comments: EKG Findings:: Sinus rhythm with PVC, rate of 65, MT interval 150 QRS duration 68, QTC [address] segment elevation or depression Medical Decision Making - Medical Decision Making 70 sexual female presenting with cough and dyspnea. On exam patient is wheezing throughout. No respiratory distress. Laboratory studies are obtained , these are within normal limits including CBC, CMP, BNP and troponin. EKG nonischemic. Chest x-ray negative for focal pneumonia, does show hyperinflation consistent with COPD. Patient is given albuterol and steroids in the emergency department. On reevaluation she is feeling much better. She will be continued on steroids, she is instructed to continue her nebulizer at home. She will be given a course of antibiotics. - Lab Data Result diagrams: 08/24/17 18:43 08/24/17 18:43 Lab Results 08/24/17 08/24/17 08/24/17 Range/Units 18:43 18:43 18:43 WBC 9.2 (3.8-10.6) k/uL RBC 4.50 (3.80-5.40) m/uL Hgb 13.1 (11.4-16.0) gm/dL Hct 38.8 (34.0-46.0) % MCV 86.2 (80.0-100.0) fL MCH 29.1 (25.0-35.0) pg MCHC 33.8 (31.0-37.0) g/dL RDW 13.8 (11.5-15.5) % Plt Count 280 (150-450) k/uL Neutrophils % 49 % Lymphocytes % 32 % Monocytes % 7 % Eosinophils % 8 % Basophils % 1 % Neutrophils # 4.5 (1.3-7.7) k/uL Lymphocytes # 2.9 (1.0-4.8) k/uL Monocytes # 0.7 (0-1.0) k/uL Eosinophils # 0.7 (0-0.7) k/uL Basophils # 0.0 (0-0.2) k/uL PT (9.0-12.0) sec INR (<1.2) APTT (22.0-30.0) sec Sodium 140 (137-145) mmol/L Potassium 4.2 (3.5-5.1) mmol/L Chloride 102 (98-107) mmol/L Carbon Dioxide 26 (22-30) mmol/L Anion Gap 12 mmol/L BUN 15 (7-17) mg/dL Creatinine 0.80 (0.52-1.04) mg/dL Est GFR (CKD-EPI)AfAm 83 (>60 ml/min/1.73 sqM) Est GFR (CKD-EPI)NonAf 72 (>60 ml/min/1.73 sqM) Glucose 92 (74-99) mg/dL Calcium 9.3 (8.4-10.2) mg/dL Magnesium 2.3 (1.6-2.3) mg/dL Total Bilirubin 0.3 (0.2-1.3) mg/dL AST 18 (14-36) U/L ALT 19 (9-52) U/L Alkaline Phosphatase 86 (38-126) U/L Total Creatine Kinase 30 (30-135) U/L CK-MB (CK-2) 0.3 (0.0-2.4) ng/mL CK-MB (CK-2) Rel Index 1.0 Troponin I <0.012 (0.000-0.034) ng/mL NT-Pro-B Natriuret Pep pg/mL Total Protein 6.2 L (6.3-8.2) g/dL Albumin 3.9 (3.5-5.0) g/dL 08/24/17 08/24/17 Range/Units 18:43 18:43 WBC (3.8-10.6) k/uL RBC (3.80-5.40) m/uL Hgb (11.4-16.0) gm/dL Hct (34.0-46.0) % MCV (80.0-100.0) fL MCH (25.0-35.0) pg MCHC (31.0-37.0) g/dL RDW (11.5-15.5) % Plt Count (150-450) k/uL Neutrophils % % Lymphocytes % % Monocytes % % Eosinophils % % Basophils % % Neutrophils # (1.3-7.7) k/uL Lymphocytes # (1.0-4.8) k/uL Monocytes # (0-1.0) k/uL Eosinophils # (0-0.7) k/uL Basophils # (0-0.2) k/uL PT 10.0 (9.0-12.0) sec INR 1.0 (<1.2) APTT 24.0 (22.0-30.0) sec Sodium (137-145) mmol/L Potassium (3.5-5.1) mmol/L Chloride (98-107) mmol/L Carbon Dioxide (22-30) mmol/L Anion Gap mmol/L BUN (7-17) mg/dL Creatinine (0.52-1.04) mg/dL Est GFR (CKD-EPI)AfAm (>60 ml/min/1.73 sqM) Est GFR (CKD-EPI)NonAf (>60 ml/min/1.73 sqM) Glucose (74-99) mg/dL Calcium (8.4-10.2) mg/dL Magnesium (1.6-2.3) mg/dL Total Bilirubin (0.2-1.3) mg/dL AST (14-36) U/L ALT (9-52) U/L Alkaline Phosphatase (38-126) U/L Total Creatine Kinase (30-135) U/L CK-MB (CK-2) (0.0-2.4) ng/mL CK-MB (CK-2) Rel Index Troponin I (0.000-0.034) ng/mL NT-Pro-B Natriuret Pep 30 pg/mL Total Protein (6.3-8.2) g/dL Albumin (3.5-5.0) g/dL Disposition Clinical Impression: Acute exacerbation of chronic obstructive airways disease Disposition: HOME SELF-CARE Condition: Good Instructions: COPD (Chronic Obstructive Pulmonary Disease) (ED) Prescriptions: Azithromycin [Zithromax Z-pack] 0 mg PO DIRECTED #6 tab methylPREDNISolone Dose Pack [Medrol Dose Pack] 4 mg PO DIRECTED #21 package predniSONE 50 mg PO DAILY #5 tab Is patient prescribed a controlled substance at d/c from ED?: No Referrals: Pablo De La Garza DO [Primary Care Provider] - 1-2 days Time of Disposition: 20:06
[2017-08-24 19:01] LABS: Albumin 3.9 g/dL (3.5-5.0); Calcium 9.3 mg/dL (8.4-10.2); Magnesium 2.3 mg/dL (1.6-2.3); Potassium 4.2 mmol/L (3.5-5.1); Total Bilirubin 0.3 mg/dL (0.2-1.3); Total Protein 6.2 g/dL (6.3-8.2)
[2017-08-24 19:02] LABS: Basophils % (A) 1 %; Eosinophils # (A) 0.7 k/uL (0-0.7); Eosinophils % (A) 8 %; HCT 38.8 % (34.0-46.0); HGB 13.1 gm/dL (11.4-16.0); Lymphocytes # (A) 2.9 k/uL (1.0-4.8); Lymphocytes % (A) 32 %; MCH 29.1 pg (25.0-35.0); MCHC 33.8 g/dL (31.0-37.0); MCV 86.2 fL (80.0-100.0); Mean Platelet Volume 7.4; Monocytes # (A) 0.7 k/uL (0-1.0); Monocytes % (A) 7 %; Neutrophils # (A) 4.5 k/uL (1.3-7.7); Neutrophils % (A) 49 %; Platelet Count 280 k/uL (150-450); RDW 13.8 % (11.5-15.5); WBC 9.2 k/uL (3.8-10.6)
[2017-08-24 19:15] LABS: Creatine Kinase 30 U/L (30-135)
--- NOTE | 2017-08-24 19:16 | XR ---
EXAMINATION TYPE: XR chest 2V DATE OF EXAM: 08/24/2017 COMPARISON: 01/12/2017 HISTORY: Difficult breathing TECHNIQUE: Frontal and lateral views of the chest are obtained. FINDINGS: There is pulmonary hyperinflation eventration of the right hemidiaphragm. Cardiomediastina l silhouette is upper limits of normal. Flattening of the diaphragm is noted on the lateral image. Th ere is generalized osseous demineralization. There is no focal air space opacity, pleural effusion, o r pneumothorax seen. IMPRESSION: No acute cardiopulmonary process. Radiographic sequela of COPD.
[2017-08-24 19:28] LABS: Creatine Kinase MB 0.3 ng/mL (0.0-2.4); Troponin I <0.012 ng/mL (0.000-0.034)
[2017-08-24 20:04] VITALS: BP 104/59; PULSE 65; RESP 18
[2017-08-24 20:17] VITALS: TEMP 97.4
== END 2017-08-24 20:16 | disposition home or self-care (01) ==
LOC: EC 15:50
DX: J44.1 Chronic obstructive pulmonary disease with (acute) exacerbation (principal); K21.9 Gastro-esophageal reflux disease without esophagitis; F32.9 Major depressive disorder, single episode, unspecified; F41.9 Anxiety disorder, unspecified; Z87.891 Personal history of nicotine dependence; Z79.51 Long term (current) use of inhaled steroids; Z79.899 Other long term (current) drug therapy; Z88.2 Allergy status to sulfonamides; Z88.8 Allergy status to other drugs, medicaments and biological substances
CPT/HCPCS: 36415; 94640; 93005; 83880; 80053; 82550; 82553; 83735; 84484; 85025; 85610; 85730; 71046; 99285; 96374; J2930

== ENCOUNTER → 2017-11-22 | Outpatient (CLI) | payer MEDICARE ==
--- NOTE | 2017-11-22 22:11 | CT ---
EXAMINATION TYPE: High-resolution CT chest DATE OF EXAM: 11/22/2017 COMPARISON: 03/11/2016 HISTORY: 77 year-old female shortness of breath TECHNIQUE: Contiguous high-resolution axial scanning of the chest without contrast. HRCT technique wa s utilized with 1 mm slice thickness and 1 cm gap. Both prone and supine imaging was performed. CT DLP: 423.9 mGycm Automated exposure control for dose reduction was used. FINDINGS: Heart is normal size without pericardial effusion. Coronary vessel calcifications are present. Borderline ectasia ascending aorta at 3.5 cm with conventional arch vessel branching anatomy and ecta roseann of the upper descending thoracic aorta at 3.1 cm. Borderline enlarged caliber to the main right and left pulmonary arteries at 2.5 cm each, may reflect underlying pulmonary arterial hypertension. No thoracic lymphadenopathy. Mild diffuse bronchial wall thickening with strandy areas of scarring or atelectasis particularly in the lower lungs. More moderate bronchial wall thickening in the lower lungs and some cicatricial bron chiectasis in the inferior lingula and medial right middle lobe. No tree-in-bud opacities, cystic denzel nge, honeycombing, or dominant groundglass. HRCT technique limits assessment for pulmonary nodules. In retrospect, the 2016 CT shows main bronchial narrowing. There is improved caliber on the present s tudy. There may be underlying bronchomalacia. There is a moderate-sized hiatal hernia. Suggestion of a diverticulum of the second portion of the du odenum projecting into the pancreatic head region. Visualized upper abdomen otherwise shows no gross abnormality. Bones: No osseous destructive process seen by HRCT technique. IMPRESSION: 1. NO SPECIFIC FINDINGS OF INTERSTITIAL LUNG DISEASE. 2. HOWEVER, THERE IS MILD TO MODERATE BRONCHIAL WALL THICKENING SUGGESTING BRONCHITIS OR CHRONIC ASTH MA. 3. SOME CICATRICIAL BRONCHIECTASIS IN THE INFERIOR [place]A AND RIGHT MIDDLE LOBE COULD REPRESENT SEQU ABENA OF PRIOR INFECTION OR INFLAMMATION. SOME INDOLENT INFECTIONS SUCH SALVADOR CAN SHOW SIMILAR FINDING S. CLINICALLY CORRELATE. 4. POSSIBLE UNDERLYING BRONCHOMALACIA WHEN CORRELATING WITH THE PATIENT'S 03/11/2016 CT. 5. MODERATE SIZED HIATAL HERNIA.
== END | disposition home or self-care (01) ==
LOC: RADCTMAIN 17:02
PROVIDERS: ATTEND Internal Medicine Critical Care Medicine
DX: J47.9 Bronchiectasis, uncomplicated (principal); R06.4 Hyperventilation
CPT/HCPCS: 71250

== ENCOUNTER 2017-11-25 20:04 | Emergency (ER) | payer MEDICARE ==
--- NOTE | 2017-11-25 22:12 | ED ---
Fall HPI - General Chief Complaint: Fall Stated Complaint: Fall Time Seen by Provider: 11/25/17 21:38 Source: patient, RN notes reviewed Mode of arrival: ambulatory Limitations: no limitations - History of Present Illness Initial Comments: This is a 77-year-old female presents emergency Department chief complaint of right-sided pain. Patient states that she slid off a box 2 days ago and a branch fell onto her right side. She states she did have some pain then but has worsened. She states primarily his right lower rib pain. Patient states that the pain is worse when she moves or takes a deep inspiration she is not having shortness of breath. Patient also states that she did strike her head but had no loss conscious. She complains of very minimal headache, right-sided neck pain and right shoulder pain. Patient denies any dizziness. Patient denies any abdominal pain including nausea vomiting diarrhea constipation. - Related Data Home Medications Medication Instructions Recorded Confirmed FLUoxetine HCL [PROzac] 20 mg PO DAILY 12/19/14 08/24/17 Albuterol Nebulized [Ventolin 2.5 mg INHALATION RT-Q6H PRN 07/26/16 08/24/17 Nebulized] Ascorbic Acid [Vitamin C] 500 mg PO DAILY 01/12/17 08/24/17 Budesonide-Formot 160-4.5 Mcg 2 puff INHALATION RT-BID 01/12/17 08/24/17 [Symbicort 160-4.5 Mcg Inhaler] Cholecalciferol [Vitamin D3] 1,000 unit PO DAILY 01/12/17 08/24/17 Albuterol Sulfate [Proair Hfa] 2 puff INHALATION RT-Q4H PRN 08/24/17 08/24/17 HYDROcodone/APAP 5-325MG [[place] 1 tab PO BID PRN 08/24/17 08/24/17 5-325] Montelukast Sodium [Singulair] 10 mg PO DAILY 08/24/17 08/24/17 Omeprazole 40 mg PO DAILY 08/24/17 08/24/17 Previous Rx's Medication Instructions Recorded ALPRAZolam [Xanax] 0.5 mg PO TID PRN #0 tab 03/14/16 Propranolol [Inderal] 10 mg PO TID tab 03/14/16 Azithromycin [Zithromax Z-pack] 0 mg PO DIRECTED #6 tab 08/24/17 methylPREDNISolone Dose Pack 4 mg PO DIRECTED #21 package 08/24/17 [Medrol Dose Pack] predniSONE 50 mg PO DAILY #5 tab 08/24/17 Allergies Allergy/AdvReac Type Severity Reaction Status Date / Time iodine Allergy Rash/Hives Verified 11/25/17 20:31 Sulfa (Sulfonamide Allergy Rash/Hives Verified 11/25/17 20:31 Antibiotics) zolpidem tartrate Allergy Hallucinati Verified 11/25/17 20:31 [From Ambien] ons prednisone AdvReac DIZINESS Verified 11/25/17 20:31 Review of Systems ROS Statement: Those systems with pertinent positive or pertinent negative responses have been documented in the HPI. ROS Other: All systems not noted in ROS Statement are negative. Past Medical History Past Medical History: Atrial Fibrillation, COPD, CVA/TIA, Eye Disorder, GERD/ Reflux, Hyperlipidemia, Pneumonia Additional Past Medical History / Comment(s): COPD, chronic atrial fibrillation , essential tremors, previous TIA, chronic back pain, varicose veins, hiatal hernia, restless leg syndrome, seasonal ALLERGIES, hyperlipidemia History of Any Multi-Drug Resistant Organisms: None Reported Past Surgical History: Hysterectomy Additional Past Surgical History / Comment(s): 11/27/15 EGD with bx, L cataract removed, colonoscopy with 1 benign polypectomy. Past Anesthesia/Blood Transfusion Reactions: No Reported Reaction Past Psychological History: Anxiety, Depression Smoking Status: Former smoker Past Alcohol Use History: None Reported Past Drug Use History: None Reported - Past Family History Father Family Medical History: Cancer Additional Family Medical History / Comment(s): Pt thinks father might have from stomach cancer. She was 2 yrs old when he . Sister(s) Family Medical History: Cancer Additional Family Medical History / Comment(s): Half sister with brain cancer. Mother Family Medical History: Dementia Additional Family Medical History / Comment(s): Mother had gallstones and a partial thyroidectomy for noncancerous reasons. General Exam Limitations: no limitations General appearance: alert, in no apparent distress Head exam: Present: atraumatic, normocephalic, normal inspection Eye exam: Present: normal appearance, PERRL, EOMI. Absent: scleral icterus, conjunctival injection, periorbital swelling Neck exam: Present: normal inspection, full ROM. Absent: tenderness, meningismus, lymphadenopathy Respiratory exam: Present: normal lung sounds bilaterally, chest wall tenderness (Moderate right anterior to lateral rib tenderness lower aspect). Absent: respiratory distress, wheezes, rales, rhonchi, stridor Cardiovascular Exam: Present: regular rate, normal rhythm, normal heart sounds. Absent: systolic murmur, diastolic murmur, rubs, gallop, clicks GI/Abdominal exam: Present: soft, normal bowel sounds. Absent: distended, tenderness, guarding, rebound, rigid Extremities exam: Present: other (Patient has full range of motion right shoulder with mild discomfort with palpation no iris deformity there is no tenderness over the AC joint, remaining extremity exam within normal limits.) Back exam: Absent: CVA tenderness (R), CVA tenderness (L) Neurological exam: Present: alert, oriented X3, CN II-XII intact, reflexes normal. Absent: motor sensory deficit Skin exam: Present: warm, dry, intact, normal color. Absent: rash Course Vital Signs 11/25/17 11/25/17 20:24 23:54 Temperature 98.2 F 97.9 F Pulse Rate 63 54 L Respiratory 18 16 Rate Blood Pressure 100/62 128/57 O2 Sat by Pulse 95 94 L Oximetry Medical Decision Making - Medical Decision Making 77-year-old female presented for a fall, rib pain. There is no obvious fracture on x-ray CT of the brain and C-spine unremarkable x-ray was shoulder unremarkable. Patient will follow-up PCP and return for any worsening symptoms. Disposition Clinical Impression: Fall, Contusion of rib on right side, Right shoulder pain Disposition: HOME SELF-CARE Condition: Stable Instructions: Rib Contusion (ED) Additional Instructions: Please return to the Emergency Department if symptoms worsen or any other concerns. Is patient prescribed a controlled substance at d/c from ED?: No Referrals: Pablo De La Garza DO [Primary Care Provider] - 1-2 days Time of Disposition: 00:10
--- NOTE | 2017-11-25 22:50 | CT ---
EXAMINATION TYPE: CT brain javan rodrigez DATE OF EXAM: 11/25/2017 COMPARISON: CT brain 12/19/2014 HISTORY: Fall. CT DLP: 1506 mGycm Automated exposure control for dose reduction was used. TECHNIQUE: CT scan of the head and cervical spine are performed without contrast. FINDINGS: There is mild cerebral cortical atrophy. There is no mass effect nor midline shift. There is no sign of intracranial hemorrhage. The calvarium is intact. There is mild straightening of the cervical spine. There is disc space narrowing at C3-4 and C5-6 wit h spurring of the endplates. Posterior elements are intact. Skull base is intact. IMPRESSION: Spondylotic changes in the cervical spine. No fracture. Mild cerebral cortical atrophy. No acute intracranial abnormality. No change.
[2017-11-25 23:56] VITALS: BP 128/57; PULSE 54; RESP 16; TEMP 97.9
--- NOTE | 2017-11-26 00:04 | XR ---
EXAMINATION TYPE: XR ribs RT w pa chest xray DATE OF EXAM: 11/25/2017 COMPARISON: NONE HISTORY: Rib pain after falling TECHNIQUE: 5 views FINDINGS: There is no heart failure nor confluent pneumonic infiltrate. Costophrenic angles are clear . There is no evidence of pleural effusion or pneumothorax. The right ribs appear intact. There is so me linear density in the right lower lobe. IMPRESSION: Possible new subsegmental atelectasis in the right lower lobe compared to last chest x-ra y of 11/22/2017. No rib fracture seen.
--- NOTE | 2017-11-26 00:05 | XR ---
EXAMINATION TYPE: XR shoulder complete RT DATE OF EXAM: 11/25/2017 COMPARISON: NONE HISTORY: Shoulder pain TECHNIQUE: 3 views FINDINGS: I see no fracture nor dislocation. Joint spaces are normal. There are no pathologic calcifi cations. IMPRESSION: Negative right shoulder exam.
== END 2017-11-26 00:20 | disposition home or self-care (01) ==
LOC: EC 20:04
DX: S20.211A Contusion of right front wall of thorax, initial encounter (principal); M25.511 Pain in right shoulder; R51 Headache; M54.2 Cervicalgia; J44.9 Chronic obstructive pulmonary disease, unspecified; F41.9 Anxiety disorder, unspecified; F32.9 Major depressive disorder, single episode, unspecified; Z86.73 Personal history of transient ischemic attack (TIA), and cerebral infarction without residual deficits; Z87.891 Personal history of nicotine dependence; Z79.51 Long term (current) use of inhaled steroids; Z79.899 Other long term (current) drug therapy; Z88.2 Allergy status to sulfonamides; Z88.8 Allergy status to other drugs, medicaments and biological substances; Z91.048 Other nonmedicinal substance allergy status; W01.0XXA Fall on same level from slipping, tripping and stumbling without subsequent striking against object, initial encounter; W20.8XXA Other cause of strike by thrown, projected or falling object, initial encounter; Y92.009 Unspecified place in unspecified non-institutional (private) residence as the place of occurrence of the external cause
CPT/HCPCS: 70450; 72125; 99284

== ENCOUNTER → 2018-01-03 | Outpatient (CLI) | payer MEDICARE ==
--- NOTE | 2018-01-03 15:05 | XR ---
Cervical spine HISTORY: Trauma one week prior and pain 5 views of the cervical spine There is no significant foraminal encroachment. Cervical vertebral bodies show preserved height. Bone mineralization is reduced which could limit sensitivity. There is multilevel spondylosis. Loss of di sc height at intervertebral levels especially C3-4, C5-6. Alignment is maintained. Odontoid view is l imited. Suspect multilevel facet arthropathy. Patient is rotated. IMPRESSION: Degenerative disc disease, osteopenia. Limited exam. Follow-up as indicated.
== END | disposition home or self-care (01) ==
LOC: RADXRYALE 13:33
PROVIDERS: ATTEND Physician Assistant Medical
DX: M50.31 Other cervical disc degeneration, high cervical region (principal); M85.88 Other specified disorders of bone density and structure, other site
CPT/HCPCS: 72050

== ENCOUNTER 2018-01-26 19:34 | Inpatient (IN) | payer MEDICARE ==
[2018-01-26] MEDS ORDERED: IPRATROPIUM-ALBUTEROL 3 ML NEB INHALATION STA (19:39)
[2018-01-26 20:21] LABS: Basophils % (A) 1 %; Eosinophils # (A) 0.5 k/uL (0-0.7); Eosinophils % (A) 8 %; HCT 37.2 % (34.0-46.0); HGB 13.1 gm/dL (11.4-16.0); Lymphocytes # (A) 1.6 k/uL (1.0-4.8); Lymphocytes % (A) 25 %; MCH 30.1 pg (25.0-35.0); MCHC 35.3 g/dL (31.0-37.0); MCV 85.4 fL (80.0-100.0); Mean Platelet Volume 6.6; Monocytes # (A) 0.3 k/uL (0-1.0); Monocytes % (A) 5 %; Neutrophils # (A) 3.8 k/uL (1.3-7.7); Neutrophils % (A) 59 %; Platelet Count 248 k/uL (150-450); RBC 4.35 m/uL (3.80-5.40); RDW 13.7 % (11.5-15.5); WBC 6.5 k/uL (3.8-10.6)
[2018-01-26 20:32] LABS: ALT 14 U/L (9-52); AST 13 U/L (14-36); Albumin 3.5 g/dL (3.5-5.0); Alkaline Phosphatase 70 U/L (38-126); Anion Gap 7 mmol/L; Blood Urea Nitrogen 8 mg/dL (7-17); Calcium 8.8 mg/dL (8.4-10.2); Carbon Dioxide 27 mmol/L (22-30); Chloride 106 mmol/L (98-107); Glucose 98 mg/dL (74-99); Magnesium 2.1 mg/dL (1.6-2.3); Potassium 4.1 mmol/L (3.5-5.1); Sodium 140 mmol/L (137-145); Total Bilirubin 0.6 mg/dL (0.2-1.3); Total Protein 6.1 g/dL (6.3-8.2)
[2018-01-26 20:33] LABS: INR 1.1 (<1.2); Partial Thromboplastin Time 24.4 sec (22.0-30.0); Prothrombin Time 10.3 sec (9.0-12.0)
[2018-01-26 20:43] LABS: Creatine Kinase 30 U/L (30-135)
--- NOTE | 2018-01-26 20:50 | XR ---
EXAMINATION TYPE: XR chest 2V DATE OF EXAM: 01/26/2018 COMPARISON: 11/25/2017 HISTORY: Short of breath TECHNIQUE: Frontal and lateral views of the chest are obtained. FINDINGS: There is no heart failure nor confluent pneumonic infiltrate. Costophrenic angles are azam r. There are chest leads. Bony thorax is intact. IMPRESSION: No active cardiopulmonary disease. Minimal scarring or subsegmental atelectasis in the r ight lung. No change.
[2018-01-26 20:55] LABS: Creatine Kinase MB 0.4 ng/mL (0.0-2.4); Troponin I <0.012 ng/mL (0.000-0.034)
--- NOTE | 2018-01-26 21:13 | ED ---
SOB HPI - General Chief Complaint: Shortness of Breath Stated Complaint: BARBIE Time Seen by Provider: 01/26/18 19:37 Source: patient, RN notes reviewed, old records reviewed Mode of arrival: wheelchair Limitations: no limitations, physical limitation - History of Present Illness Initial Comments: This is a 77-year-old female the ER for evaluation of shortness of breath. Patient does suffer from A. fib with RVR and COPD. Patient states she's had a couple episodes the last 2 nights and marijuana come to the ER but states was worse. Patient's brought in by EMS to be breathing treatment patient states she is improved. Denies chest pain no fevers she does have significant increased cough and congestion. No recent travel history no known sick contacts MD Complaint: shortness of breath, anxiety -: days(s) Severity scale (1-10): 6 Consistency: intermittent Improves With: oxygen, bronchodilators Worsens With: movement Known History Of: COPD, other (afib) Context: anxiety Associated Symptoms: cough, sputum production Treatments Prior to Arrival: bronchodilator - Related Data Home Medications Medication Instructions Recorded Confirmed FLUoxetine HCL [PROzac] 20 mg PO DAILY 12/19/14 01/26/18 Albuterol Nebulized [Ventolin 2.5 mg INHALATION RT-Q4H PRN 07/26/16 01/26/18 Nebulized] Ascorbic Acid [Vitamin C] 500 mg PO DAILY 01/12/17 01/26/18 Cholecalciferol [Vitamin D3] 1,000 unit PO DAILY 01/12/17 01/26/18 Montelukast Sodium [Singulair] 10 mg PO DAILY 08/24/17 01/26/18 Omeprazole 40 mg PO DAILY 08/24/17 01/26/18 Aspirin EC [Ecotrin Low Dose] 81 mg PO DAILY 01/26/18 01/26/18 Ipratropium Nebulized [Atrovent 0.5 mg INHALATION RT-Q4H PRN 01/26/18 01/26/18 Nebulized] Previous Rx's Medication Instructions Recorded ALPRAZolam [Xanax] 0.5 mg PO TID PRN #0 tab 03/14/16 Propranolol [Inderal] 10 mg PO TID tab 03/14/16 Allergies Allergy/AdvReac Type Severity Reaction Status Date / Time iodine Allergy Rash/Hives Verified 01/26/18 19:43 Sulfa (Sulfonamide Allergy Rash/Hives Verified 01/26/18 19:43 Antibiotics) zolpidem tartrate Allergy Hallucinati Verified 01/26/18 19:43 [From Ambien] ons prednisone AdvReac DIZINESS Verified 01/26/18 19:43 Review of Systems ROS Statement: Those systems with pertinent positive or pertinent negative responses have been documented in the HPI. ROS Other: All systems not noted in ROS Statement are negative. Past Medical History Past Medical History: Atrial Fibrillation, COPD, CVA/TIA, Eye Disorder, GERD/ Reflux, Hyperlipidemia, Pneumonia Additional Past Medical History / Comment(s): COPD, chronic atrial fibrillation , essential tremors, previous TIA, chronic back pain, varicose veins, hiatal hernia, restless leg syndrome, seasonal ALLERGIES, hyperlipidemia History of Any Multi-Drug Resistant Organisms: None Reported Past Surgical History: Hysterectomy Additional Past Surgical History / Comment(s): 11/27/15 EGD with bx, L cataract removed, colonoscopy with 1 benign polypectomy. Past Anesthesia/Blood Transfusion Reactions: No Reported Reaction Past Psychological History: Anxiety, Depression Smoking Status: Former smoker Past Alcohol Use History: None Reported Past Drug Use History: None Reported - Past Family History Father Family Medical History: Cancer Additional Family Medical History / Comment(s): Pt thinks father might have from stomach cancer. She was 2 yrs old when he . Sister(s) Family Medical History: Cancer Additional Family Medical History / Comment(s): Half sister with brain cancer. Mother Family Medical History: Dementia Additional Family Medical History / Comment(s): Mother had gallstones and a partial thyroidectomy for noncancerous reasons. General Exam Limitations: no limitations, physical limitation General appearance: alert, in no apparent distress, anxious Head exam: Present: atraumatic, normocephalic, normal inspection Eye exam: Present: normal appearance, PERRL, EOMI. Absent: scleral icterus, conjunctival injection, periorbital swelling ENT exam: Present: normal exam, mucous membranes moist Neck exam: Present: normal inspection. Absent: tenderness, meningismus, lymphadenopathy Respiratory exam: Present: wheezes. Absent: respiratory distress, rales, rhonchi, stridor Cardiovascular Exam: Present: regular rate, normal rhythm, normal heart sounds. Absent: systolic murmur, diastolic murmur, rubs, gallop, clicks GI/Abdominal exam: Present: soft, normal bowel sounds. Absent: distended, tenderness, guarding, rebound, rigid Extremities exam: Present: normal inspection, full ROM, normal capillary refill. Absent: tenderness, pedal edema, joint swelling, calf tenderness Back exam: Present: normal inspection Neurological exam: Present: alert, oriented X3, CN II-XII intact Psychiatric exam: Present: normal affect, normal mood Skin exam: Present: warm, dry, intact, normal color. Absent: rash Course Vital Signs 01/26/18 01/26/18 01/26/18 19:45 20:37 20:49 Temperature 97.8 F Pulse Rate 61 58 L 58 L Respiratory 24 Rate Blood Pressure 126/61 - Reevaluation(s) Reevaluation #1: 01/26/18 21:19 Medical records thoroughly reviewed Reevaluation #2: 01/26/18 21:19 Patient does admit to improvement after second breathing treatment Medical Decision Making - Medical Decision Making 77 female the ER for evaluation of shortness of cough congestion and anxiety. Patient will be admitted for breathing treatments and steroids, patient does not feel comfortable being home - Lab Data Result diagrams: 01/26/18 20:10 01/26/18 20:10 Lab Results 01/26/18 01/26/18 01/26/18 Range/Units 20:10 20:10 20:10 WBC 6.5 (3.8-10.6) k/uL RBC 4.35 (3.80-5.40) m/uL Hgb 13.1 (11.4-16.0) gm/dL Hct 37.2 (34.0-46.0) % MCV 85.4 (80.0-100.0) fL MCH 30.1 (25.0-35.0) pg MCHC 35.3 (31.0-37.0) g/dL RDW 13.7 (11.5-15.5) % Plt Count 248 (150-450) k/uL Neutrophils % 59 % Lymphocytes % 25 % Monocytes % 5 % Eosinophils % 8 % Basophils % 1 % Neutrophils # 3.8 (1.3-7.7) k/uL Lymphocytes # 1.6 (1.0-4.8) k/uL Monocytes # 0.3 (0-1.0) k/uL Eosinophils # 0.5 (0-0.7) k/uL Basophils # 0.0 (0-0.2) k/uL PT (9.0-12.0) sec INR (<1.2) APTT (22.0-30.0) sec Sodium 140 (137-145) mmol/L Potassium 4.1 (3.5-5.1) mmol/L Chloride 106 (98-107) mmol/L Carbon Dioxide 27 (22-30) mmol/L Anion Gap 7 mmol/L BUN 8 (7-17) mg/dL Creatinine 0.71 (0.52-1.04) mg/dL Est GFR (CKD-EPI)AfAm >90 (>60 ml/min/1.73 sqM) Est GFR (CKD-EPI)NonAf 83 (>60 ml/min/1.73 sqM) Glucose 98 (74-99) mg/dL Calcium 8.8 (8.4-10.2) mg/dL Magnesium 2.1 (1.6-2.3) mg/dL Total Bilirubin 0.6 (0.2-1.3) mg/dL AST 13 L (14-36) U/L ALT 14 (9-52) U/L Alkaline Phosphatase 70 (38-126) U/L Total Creatine Kinase 30 (30-135) U/L CK-MB (CK-2) 0.4 (0.0-2.4) ng/mL CK-MB (CK-2) Rel Index 1.3 Troponin I <0.012 (0.000-0.034) ng/mL NT-Pro-B Natriuret Pep pg/mL Total Protein 6.1 L (6.3-8.2) g/dL Albumin 3.5 (3.5-5.0) g/dL 01/26/18 01/26/18 Range/Units 20:10 20:10 WBC (3.8-10.6) k/uL RBC (3.80-5.40) m/uL Hgb (11.4-16.0) gm/dL Hct (34.0-46.0) % MCV (80.0-100.0) fL MCH (25.0-35.0) pg MCHC (31.0-37.0) g/dL RDW (11.5-15.5) % Plt Count (150-450) k/uL Neutrophils % % Lymphocytes % % Monocytes % % Eosinophils % % Basophils % % Neutrophils # (1.3-7.7) k/uL Lymphocytes # (1.0-4.8) k/uL Monocytes # (0-1.0) k/uL Eosinophils # (0-0.7) k/uL Basophils # (0-0.2) k/uL PT 10.3 (9.0-12.0) sec INR 1.1 (<1.2) APTT 24.4 (22.0-30.0) sec Sodium (137-145) mmol/L Potassium (3.5-5.1) mmol/L Chloride (98-107) mmol/L Carbon Dioxide (22-30) mmol/L Anion Gap mmol/L BUN (7-17) mg/dL Creatinine (0.52-1.04) mg/dL Est GFR (CKD-EPI)AfAm (>60 ml/min/1.73 sqM) Est GFR (CKD-EPI)NonAf (>60 ml/min/1.73 sqM) Glucose (74-99) mg/dL Calcium (8.4-10.2) mg/dL Magnesium (1.6-2.3) mg/dL Total Bilirubin (0.2-1.3) mg/dL AST (14-36) U/L ALT (9-52) U/L Alkaline Phosphatase (38-126) U/L Total Creatine Kinase (30-135) U/L CK-MB (CK-2) (0.0-2.4) ng/mL CK-MB (CK-2) Rel Index Troponin I (0.000-0.034) ng/mL NT-Pro-B Natriuret Pep 69 pg/mL Total Protein (6.3-8.2) g/dL Albumin (3.5-5.0) g/dL - EKG Data -: EKG Interpreted by Me (EKG shows sinus bradycardia rate of 57, MI 146, QRS 68 , QTc 436) Disposition Clinical Impression: Acute exacerbation of chronic obstructive airways disease Disposition: ADMITTED IP TO THIS HOSP Condition: Good Is patient prescribed a controlled substance at d/c from ED?: No Referrals: Pablo De La Garza DO [Primary Care Provider] - 1-2 days
[2018-01-26] MEDS ORDERED: methylPREDNISolone SOD SUCCI 125 MG/2 ML VIAL IV STA (21:17)
[2018-01-27] MEDS: IPRATROPIUM-ALBUTEROL 3 ML NEB INHALATION PRN (01:07)
[2018-01-27] MEDS ORDERED: ALPRAZolam 0.5 MG TAB PO ONE (01:37)
[2018-01-27] MEDS: methylPREDNISolone SOD SUCCI 125 MG/2 ML VIAL IV SCH ×4 (01:59→17:43)
[2018-01-27] MEDS: SODIUM CHLORIDE 0.9% 1,000 ML IV SCH ×2 (05:57→08:42)
[2018-01-27] MEDS ORDERED: ACETAMINOPHEN TAB 500 MG TAB PO PRN (07:20)
[2018-01-27] MEDS: IPRATROPIUM-ALBUTEROL 3 ML NEB INHALATION SCH ×4 (07:30→20:12)
[2018-01-27 12:39] LABS: Glucose,Whole Blood 179 mg/dL (75-99)
[2018-01-27] MEDS: INSULIN ASPART 100 UNIT/ML 1 ML 10 ML VIAL SQ SCH ×3 (12:41→21:54)
[2018-01-27] MEDS: ASPIRIN 81 MG PO SCH (13:18)
[2018-01-27] MEDS: PROPRANOLOL 10 MG TAB PO SCH ×2 (13:18→21:54)
[2018-01-27] MEDS: FLUoxetine HCL 20 MG CAP PO SCH (13:18)
[2018-01-27] MEDS: ASCORBIC ACID 500 MG TAB PO SCH (13:18)
[2018-01-27] MEDS: ALPRAZolam 0.5 MG TAB PO PRN (15:02)
[2018-01-27] MEDS ORDERED: HYDROcodone/APAP 5-325MG 1 EACH TAB PO PRN (15:15)
[2018-01-27] MEDS ORDERED: MELATONIN 3 MG TABLET PO PRN (15:15)
--- NOTE | 2018-01-27 16:08 | P.CNPUL ---
History of Present Illness Consult date: 01/27/18 Reason for consult: dyspnea, COPD History of present illness: This is a 77-year-old female patient presented burst department yesterday because of worsening shortness of breath. The patient is known to me. The patient has COPD however she is not oxygen dependent. The patient has also history of atrial fibrillation and chronic tremors. She was in the hospital approximately 2 months ago after a fall and during that time CAT scan of the chest abdomen and pelvis was done and the CAT scan of the chest showed some limited bronchiectatic changes in lung bases bilaterally. No rib fractures. CAT scan of the cervical spine and head were negative. The patient was discharged home without being hospitalized. The patient is coming in today because of worsening shortness of breath. The exact trigger is not known. Most of the sputum production. No sick contacts. No travel. She lives with her children. She smokes marijuana. No hemoptysis. No pleurisy. Chest x-ray shows chronic findings consistent with COPD without any acute abnormalities. Her white cell count is not elevated. Rest of the blood work and electrodes are within normal limits per troponin's are negative. She was found to be afebrile. No significant swelling in lower extremities. Review of Systems Constitutional: Reports fatigue, Reports poor appetite, Reports weakness Eyes: denies blurred vision, denies bulging eye, denies decreased vision Ears: deny: decreased hearing, ear discharge, earache Ears, nose, mouth and throat: Denies headache, Denies sore throat Cardiovascular: Reports chest pain, Reports dyspnea on exertion, Reports shortness of breath Respiratory: Reports cough, Reports dyspnea, Reports wheezing Gastrointestinal: Denies abdominal pain, Denies diarrhea, Denies nausea, Denies vomiting Genitourinary: Denies dysuria, Denies hematuria Musculoskeletal: Denies myalgias Musculoskeletal: absent: ankle pain, ankle stiffness, ankle swelling Integumentary: Denies pruritus, Denies rash Neurological: Denies numbness, Denies weakness, increased risk of falls and the patient had fallen approximately 2 months ago for which she was briefly seen and evaluated in the emergency department. the patient has also chronic tremors. Psychiatric: Denies anxiety, Denies depression Endocrine: Denies fatigue, Denies weight change Past Medical History Past Medical History: Atrial Fibrillation, COPD, CVA/TIA, Eye Disorder, GERD/ Reflux, Hyperlipidemia, Pneumonia Additional Past Medical History / Comment(s): COPD, chronic atrial fibrillation , essential tremors, previous TIA, chronic back pain, varicose veins, hiatal hernia, restless leg syndrome, seasonal ALLERGIES, hyperlipidemia History of Any Multi-Drug Resistant Organisms: None Reported Past Surgical History: Hysterectomy Additional Past Surgical History / Comment(s): 11/27/15 EGD with bx, L cataract removed, colonoscopy with 1 benign polypectomy. Past Anesthesia/Blood Transfusion Reactions: No Reported Reaction Past Psychological History: Anxiety, Depression Additional Psychological History / Comment(s): Pt's sonSonu lives with her. She uses a cane or walker to ambulate. She drives. Her blessing, Rita comes and cleans home on occasion. Smoking Status: Former smoker Past Alcohol Use History: None Reported Additional Past Alcohol Use History / Comment(s): Pt states she started smoking in her early 20's. She quit for several yrs, during her pregnancies and when her children were young. She currently smokes 1/2 ppd. Past Drug Use History: None Reported - Past Family History Father Family Medical History: Cancer Additional Family Medical History / Comment(s): Pt thinks father might have from stomach cancer. She was 2 yrs old when he . Sister(s) Family Medical History: Cancer Additional Family Medical History / Comment(s): Half sister with brain cancer. Mother Family Medical History: Dementia Additional Family Medical History / Comment(s): Mother had gallstones and a partial thyroidectomy for noncancerous reasons. Medications and Allergies Home Medications Medication Instructions Recorded Confirmed Type FLUoxetine HCL [PROzac] 20 mg PO DAILY 12/19/14 01/26/18 History ALPRAZolam [Xanax] 0.5 mg PO TID PRN #0 tab 03/14/16 01/26/18 Rx Propranolol [Inderal] 10 mg PO TID tab 03/14/16 01/26/18 Rx Albuterol Nebulized [Ventolin 2.5 mg INHALATION RT-Q4H PRN 07/26/16 01/26/18 History Nebulized] Ascorbic Acid [Vitamin C] 500 mg PO DAILY 01/12/17 01/26/18 History Cholecalciferol [Vitamin D3] 1,000 unit PO DAILY 01/12/17 01/26/18 History Montelukast Sodium [Singulair] 10 mg PO DAILY 08/24/17 01/26/18 History Omeprazole 40 mg PO DAILY 08/24/17 01/26/18 History Aspirin EC [Ecotrin Low Dose] 81 mg PO DAILY 01/26/18 01/26/18 History Ipratropium Nebulized [Atrovent 0.5 mg INHALATION RT-Q4H PRN 01/26/18 01/26/18 History Nebulized] Allergies Allergy/AdvReac Type Severity Reaction Status Date / Time iodine Allergy Rash/Hives Verified 01/26/18 19:43 lorazepam [From Ativan] Allergy Hallucinati Verified 01/27/18 07:19 ons Sulfa (Sulfonamide Allergy Rash/Hives Verified 01/26/18 19:43 Antibiotics) zolpidem tartrate Allergy Hallucinati Verified 01/26/18 19:43 [From Ambien] ons prednisone AdvReac DIZINESS Verified 01/26/18 19:43 Physical Exam Vitals: Vital Signs Temp Pulse Pulse Resp BP BP Pulse Ox 01/27/18 14:35 97.6 F 82 22 122/61 90 L 01/27/18 11:25 72 01/27/18 11:14 76 01/27/18 07:46 76 01/27/18 07:30 76 01/27/18 07:00 96.8 F L 74 20 119/68 91 L 01/27/18 01:18 64 01/27/18 01:07 64 01/27/18 00:00 97.4 F L 64 20 117/71 93 L 01/26/18 23:41 97.1 F L 65 20 137/65 96 01/26/18 23:27 62 135/62 96 01/26/18 22:27 62 120/68 96 01/26/18 21:57 60 126/68 96 01/26/18 21:27 60 121/58 97 01/26/18 20:49 58 L 01/26/18 20:37 58 L 01/26/18 19:45 97.8 F 61 24 126/61 Intake and Output 01/27/18 01/27/18 01/27/18 06:59 14:59 22:59 Intake Total 750 Balance 750 Intake: IV 150 Sodium Chloride 0.9% 1, 100 000 ml @ 100 mls/hr IV . Q10H [facility] Rx#:[id number] cefTRIAXone 1,000 mg In 50 Sodium Chloride 0.9% 50 ml @ 100 mls/hr IVPB Q24HR [facility] Rx#:[id number] Oral 600 Other: # Voids 2 2 # Bowel Movements 0 GENERAL EXAM: Alert, active, comfortable in no apparent distress. Essential tremors. HEAD: Normocephalic. EYES: Normal reaction of pupils, equal size. NOSE: Clear with pink turbinates. THROAT: No erythema or exudates. NECK: No masses, no JVD. CHEST: No chest wall deformity. LUNGS: Equal air entry with bilateral wheezing. Diminished. Few scattered expiratory wheezes upon forceful extremity maneuvers. CVS: S1 and S2 normal with no audible murmurs, regular rhythm. ABDOMEN: No hepatosplenomegaly, normal bowel sounds, no guarding or rigidity. SPINE: No scoliosis or deformity SKIN: No rashes CENTRAL NERVOUS SYSTEM: No focal deficits, tone is normal in all 4 extremities. The patient has benign essential tremors. Extremities: There is no significant peripheral edema. No clubbing, no cyanosis. Peripheral pulses are intact. Results - Laboratory Findings CBC and BMP: 01/26/18 20:10 01/26/18 20:10 PT/INR, D-dimer PT 10.3 sec (9.0-12.0) 01/26/18 20:10 INR 1.1 (<1.2) 01/26/18 20:10 Abnormal lab findings: Abnormal Labs 01/26/18 01/27/18 20:10 12:35 POC Glucose (mg/dL) 179 H AST 13 L Total Protein 6.1 L - Diagnostic Findings Chest x-ray: image reviewed Assessment and Plan Plan: Impression: #1 Acute exacerbation of COPD with secondary shortness of breath. Chest x-ray reveals chronic findings and the patient has no evidence of an acute pneumonia. She carries [id number] smoking history and she also smokes marijuana daily basis. #2 limited bronchiectatic changes in lung bases bilaterally. #3 Essential tremors. #4 Paroxysmal atrial fibrillation. Current rhythm is sinus bradycardia, with premature atrial complexes. #5 History of CVA/TIA. #6 Hyperlipidemia. #7 Gastroesophageal reflux disease. #8 Restless leg syndrome. #9 History of anxiety/depression. #10 Gastroesophageal reflux disease. #11 recent fall without any significant skeletal injuries. #12 impaired baseline performance and functional status. Plan Agree on the current treatment. Continue bronchodilators. Continue systemic steroids. Continue broad-spectrum antibiotics on an empiric basis. We will evaluate this patient for home O2 at a time of discharge. She is progressively getting more debilitated. She is weak and her tremors are also affecting her ability to function and walk and ambulate and putting her at a high risk of falls. We'll continue to follow. Outpatient medications have been ordered resume. Chest x-ray was reviewed.
[2018-01-27 17:19] LABS: Glucose,Whole Blood 134 mg/dL (75-99)
--- NOTE | 2018-01-27 17:24 | HP ---
HISTORY AND PHYSICAL CHIEF COMPLAINT: Shortness of breath. HISTORY OF PRESENT ILLNESS: This 77-year-old woman with a past medical history of multiple medical problems including atrial ablation, COPD, CVA, TIA, GERD, hypertension, hyperlipidemia, history of essential tremors, history of hysterectomy, history of anxiety, depression being followed by Dr. De La Garza in the outpatient setting, was complaining of shortness of breath. The patient had increasing shortness of breath. The patient also complains of dysphagia and almost like choking feeling and the patient has also seen Dr. Valdez previously. Patient admitted further evaluation and treatment. Chest x-ray showed no obvious pneumonia. There is no history of fever, rigors or chills at this time. PAST MEDICAL HISTORY: History of atrial fibrillation, COPD, CVA, TIA, GERD, hypertension, hyperlipidemia. HOME MEDICATIONS PRIOR TO ADMISSION: Include home medications are: 1. Inderal 10 mg p.o. t.i.d. 2. Omeprazole 40 mg. 3. Singulair 10 mg p.o. daily. 4. Atrovent 0.5 q.4 p.r.n. 5. Prozac 20 mg daily. 6. Vitamin D3 1000 daily. 7. Ecotrin 81 mg daily. 8. Vitamin C 500 mg. 9. Ventolin 2.5 q.4h p.r.n. 10.Xanax 0.5 t.i.d. p.r.n. ALLERGIES: IODINE, ATIVAN, SULFA, AMBIEN AND PREDNISONE. FAMILY HISTORY: History of cancer in the family. SOCIAL HISTORY: Previous history of smoking. No history of current smoking or alcohol intake. REVIEW OF SYSTEMS: ENT: Diminished hearing, diminished vision. CARDIOVASCULAR: As mentioned earlier. RESPIRATORY: As mentioned earlier. GI as mentioned earlier. no dysuria. Nervous system: No numbness or weakness. Allergy/Immunology: No asthma or hayfever. Musculoskeletal as mentioned earlier. Hematology/Oncology: As mentioned earlier. ENDOCRINE: No history of diabetes, or hypothyroidism. Constitutional: As mentioned earlier. Dermatology: Negative. Rheumatology: Negative. Psychiatric: As mentioned earlier. PHYSICAL EXAMINATION: GENERAL: The patient is alert and oriented times three. VITAL SIGNS: Pulse 82, blood pressure 122/61, respiration 22, temperature 97.6, pulse ox 98% on 3 L. HEENT: Conjunctivae normal. Oral mucosa moist. Neck is no jugular venous distention. No carotid bruit. No lymph node enlargement. Cardiovascular: S1, S2 muffled. No S3, no S4. No irregularity. Respiration: Breathing efforts are markedly increased. Bilateral scattered rhonchi and crackles. Expiratory wheezing also present. ABDOMEN: Soft, nontender. No mass palpable. Legs no edema. No swelling. Nervous system: Higher functions as mentioned earlier. Moves all 4 limbs. No focal motor or sensory deficits. Lymphatics: No lymph nodes palpable in the neck, axillae or groin. Skin: No ulcer, rash, bleeding. LAB STUDIES: At this time, CBC within normal limits. Glucose 117, AST is 13. ASSESSMENT: 1. Chronic obstructive pulmonary disease acute exacerbation, acute purulent tracheobronchitis. 2. Dysphagia for evaluation. 3. Benign tremors. 4. Atrial fibrillation. 5. Chronic obstructive pulmonary disease. 6. Cerebrovascular accident, transient ischemic attack. 7. Gastroesophageal reflux disease. 8. Hyperlipidemia. 9. History of pneumonia. 10.History of essential tremors. 11.History of chronic back pain, degenerative joint disease. 12.History of hyperlipidemia. 13.History of anxiety, depression. RECOMMENDATIONS AND DISCUSSION: In this 77-year-old woman who presented with multiple complex medical issues, we will monitor the patient closely. Continue the current medications, management and symptomatic treatment. We will initiate broad-spectrum IV antibiotics, steroids and bronchodilators. Pulmonary consultation. Patient also had dysphagia. I would also recommend a consult with Dr. Hinds. Otherwise, DVT prophylaxis. Guarded prognosis because of multiple complex medical issues. We will monitor pressures closely and further recommendations to follow. A copy of dictation being forwarded to Dr. De La Garza who is the primary physician. MMODL / IJN: [id number] /
[2018-01-27 19:29] LABS: Hemoglobin A1C 5.3 % (4.0-6.0)
[2018-01-27 21:41] LABS: Glucose,Whole Blood 150 mg/dL (75-99)
[2018-01-27] MEDS: HEPARIN SODIUM,PORCINE 5,000 UNIT/ML 1 ML VIAL SQ SCH (22:04)
[2018-01-28] MEDS: ALPRAZolam 0.5 MG TAB PO PRN ×2 (01:20→11:30)
[2018-01-28] MEDS: methylPREDNISolone SOD SUCCI 125 MG/2 ML VIAL IV SCH ×4 (01:42→17:44)
[2018-01-28] MEDS: IPRATROPIUM-ALBUTEROL 3 ML NEB INHALATION PRN (05:10)
[2018-01-28] MEDS: IPRATROPIUM-ALBUTEROL 3 ML NEB INHALATION SCH ×4 (07:41→19:48)
[2018-01-28 07:59] LABS: Glucose,Whole Blood 132 mg/dL (75-99)
[2018-01-28] MEDS: INSULIN ASPART 100 UNIT/ML 1 ML 10 ML VIAL SQ SCH ×4 (09:07→21:52)
[2018-01-28] MEDS: HEPARIN SODIUM,PORCINE 5,000 UNIT/ML 1 ML VIAL SQ SCH ×2 (09:08→21:52)
[2018-01-28] MEDS: ASPIRIN 81 MG PO SCH (09:09)
[2018-01-28] MEDS: PANTOPRAZOLE 40 MG TABLET PO SCH (09:09)
[2018-01-28] MEDS: FLUoxetine HCL 20 MG CAP PO SCH (09:09)
[2018-01-28] MEDS: CHOLECALCIFEROL 1,000 UNIT TAB PO SCH (09:09)
[2018-01-28] MEDS: ASCORBIC ACID 500 MG TAB PO SCH (09:09)
[2018-01-28] MEDS: PROPRANOLOL 10 MG TAB PO SCH ×3 (09:09→21:52)
[2018-01-28] MEDS: MONTELUKAST 10 MG TAB PO SCH (09:10)
[2018-01-28 09:27] LABS: Basophils % (A) 0 %; Eosinophils % (A) 0 %; HGB 12.5 gm/dL (11.4-16.0); Lymphocytes # (A) 0.7 k/uL (1.0-4.8); Lymphocytes % (A) 4 %; MCH 30.5 pg (25.0-35.0); MCHC 34.9 g/dL (31.0-37.0); MCV 87.6 fL (80.0-100.0); Monocytes # (A) 0.4 k/uL (0-1.0); Monocytes % (A) 3 %; Neutrophils # (A) 14.8 k/uL (1.3-7.7); Neutrophils % (A) 93 %; Platelet Count 247 k/uL (150-450); RBC 4.11 m/uL (3.80-5.40); RDW 13.9 % (11.5-15.5); WBC 15.9 k/uL (3.8-10.6)
--- NOTE | 2018-01-28 09:31 | CONS ---
CONSULTATION REASON FOR CONSULTATION: Dysphagia and epigastric. HISTORY OF PRESENT ILLNESS: The patient is a 77-year-old pleasant white female admitted to the hospital because of worsening shortness of breath and some chest tightness. She has history of COPD, history of atrial fibrillation and chronic tremors. She was admitted to hospital 2 months ago for similar reason, she is evaluated by Dr. Valdez for acute exacerbation of COPD and presently on steroids. The reason GI is consulted is because of dysphagia for the last 2 months duration. She has a sense of fullness in her throat area and feels like some food sticks while she swallows. She does not necessarily have any dysphagia. She also complains of epigastric fullness, epigastric tightness that has been going on for the last 2 months duration. She had similar symptoms about a year ago. She was evaluated by Dr. Delgado. In November of 2015 she did have an upper endoscopy done which revealed evidence of diffuse gastritis and mild moderate-size hiatal hernia. The patient since then has been maintained on omeprazole 40 mg daily for chronic GERD symptoms. PAST MEDICAL HISTORY: Significant for COPD, chronic tremors, atrial fibrillation, anxiety, depression. MEDICATIONS: At home: Inderal, omeprazole, Singulair, Atrovent, Prozac, vitamin D3, Ecotrin, vitamin C, Xanax. ALLERGIES: To ATIVAN, IODINE, SULFA, AMBIEN, PREDNISONE. SOCIAL HISTORY: History of smoking. She quit smoking recently. No alcohol use. FAMILY HISTORY: Some kind of cancer in the family. REVIEW OF SYSTEMS: CARDIOPULMONARY: Complains of shortness of breath but no chest pain. GENITOURINARY: No dysuria or hematuria. MUSCULOSKELETAL: Unremarkable. SKIN: Unremarkable. ENDOCRINE: Unremarkable. PSYCHIATRIC: Unremarkable. NEUROLOGY: Unremarkable. ENT/VISION: Unremarkable. CONSTITUTIONAL: No recent weight loss. No fever, chills, night sweats. HEMATOLOGY: Unremarkable. PHYSICAL EXAMINATION: She appears comfortable. No apparent distress. Vital signs are stable. Blood pressure is 129/66, pulse is 72, temperature 97.6. HEENT examination unremarkable. Conjunctivae pink. Sclerae anicteric. Oral cavity no lesions. NECK: No JVD or lymph node enlargement. Chest is clear to auscultation. Decreased breath sounds bilaterally. HEART: Regular rate and rhythm. Abdomen is soft. Bowel sounds are positive. There was mild tenderness in the epigastric area. EXTREMITIES: No pedal edema. SKIN: No rashes. NEUROLOGIC: Alert and oriented x3. No focal deficits. LABS: From yesterday: WBC 6.5, hemoglobin 13.1, platelets are normal. Basic metabolic panel is within normal limits. IMPRESSION: 1. Exacerbation of chronic obstructive pulmonary disease. 2. Intermittent dysphagia to solids and epigastric fullness for the last 2 months duration. She does history of chronic gastroesophageal reflux disease and has been maintained on omeprazole 40 mg daily on outpatient basis with reasonably good control of reflux symptoms. However, lately has been having worsening dysphagia with sensation of food sticking in her throat area. She did have an upper endoscopy by Dr. Delgado November of 2015, which showed a moderate-sized hiatal hernia and diffuse gastritis. RECOMMENDATION: Proceed with barium esophagogram and based on the results, I will consider if she needs any endoscopy intervention. In the meantime, continue with omeprazole 40 mg daily. She was recommended small frequent meals. Thank you for this consultation. We will follow her closely during hospital stay. ANAML / HUEN: [id number] /
[2018-01-28 09:40] LABS: Anion Gap 8 mmol/L; Blood Urea Nitrogen 14 mg/dL (7-17); Calcium 9.6 mg/dL (8.4-10.2); Carbon Dioxide 26 mmol/L (22-30); Chloride 106 mmol/L (98-107); Glucose 153 mg/dL (74-99); Potassium 3.8 mmol/L (3.5-5.1); Sodium 140 mmol/L (137-145)
[2018-01-28 11:43] LABS: Glucose,Whole Blood 123 mg/dL (75-99)
--- NOTE | 2018-01-28 15:18 | P.PN ---
Subjective Progress Note Date: 01/28/18 This is a 77-year-old female patient presented burst department yesterday because of worsening shortness of breath. The patient is known to me. The patient has COPD however she is not oxygen dependent. The patient has also history of atrial fibrillation and chronic tremors. She was in the hospital approximately 2 months ago after a fall and during that time CAT scan of the chest abdomen and pelvis was done and the CAT scan of the chest showed some limited bronchiectatic changes in lung bases bilaterally. No rib fractures. CAT scan of the cervical spine and head were negative. The patient was discharged home without being hospitalized. The patient is coming in today because of worsening shortness of breath. The exact trigger is not known. Most of the sputum production. No sick contacts. No travel. She lives with her children. She smokes marijuana. No hemoptysis. No pleurisy. Chest x-ray shows chronic findings consistent with COPD without any acute abnormalities. Her white cell count is not elevated. Rest of the blood work and electrodes are within normal limits per troponin's are negative. She was found to be afebrile. No significant swelling in lower extremities. On 01/28/2018, I'm seeing this patient for a follow-up. Feeling better. Less short of breath. No chest pain. No significant sputum production. Less bronchospastic and wheezy compared to yesterday. Still having tremors. Tolerating her diet. Tolerating her antibiotic treatment and the steroids. She is also on bronchodilators [id number]. No other significant events over the past 24 hours and the patient has been essentially stable for now. Objective - Vital Signs Vital signs: Vital Signs Temp 98 F 01/28/18 14:28 Pulse 76 01/28/18 14:28 Resp 16 01/28/18 14:28 BP 108/64 01/28/18 14:28 Pulse Ox 91 L 01/28/18 14:28 Intake & Output 01/27/18 01/28/18 01/28/18 18:59 06:59 18:59 Intake Total 750 500 800 Balance 750 500 800 Intake: IV 150 50 Sodium Chloride 0.9% 1, 100 000 ml @ 100 mls/hr IV . Q10H [facility] Rx#:[id number] cefTRIAXone 1,000 mg In 50 50 Sodium Chloride 0.9% 50 ml @ 100 mls/hr IVPB Q24HR [facility] Rx#:[id number] Oral 600 500 750 Other: # Voids 2 1 1 # Bowel Movements 0 - Exam GENERAL EXAM: Alert, active, comfortable in no apparent distress. Essential tremors. HEAD: Normocephalic. EYES: Normal reaction of pupils, equal size. NOSE: Clear with pink turbinates. THROAT: No erythema or exudates. NECK: No masses, no JVD. CHEST: No chest wall deformity. LUNGS: Equal air entry with bilateral wheezing. Diminished. Few scattered expiratory wheezes upon forceful extremity maneuvers. CVS: S1 and S2 normal with no audible murmurs, regular rhythm. ABDOMEN: No hepatosplenomegaly, normal bowel sounds, no guarding or rigidity. SPINE: No scoliosis or deformity SKIN: No rashes CENTRAL NERVOUS SYSTEM: No focal deficits, tone is normal in all 4 extremities. The patient has benign essential tremors. Extremities: There is no significant peripheral edema. No clubbing, no cyanosis. Peripheral pulses are intact. - Labs CBC & Chem 7: 01/28/18 08:48 01/28/18 08:48 Labs: Abnormal Lab Results - Last 24 Hours (Table) 01/27/18 01/27/18 01/28/18 Range/Units 17:06 21:18 07:51 WBC (3.8-10.6) k/uL Neutrophils # (1.3-7.7) k/uL Lymphocytes # (1.0-4.8) k/uL Glucose (74-99) mg/dL POC Glucose (mg/dL) 134 H 150 H 132 H (75-99) mg/dL 01/28/18 01/28/18 01/28/18 Range/Units 08:48 08:48 11:40 WBC 15.9 H (3.8-10.6) k/uL Neutrophils # 14.8 H (1.3-7.7) k/uL Lymphocytes # 0.7 L (1.0-4.8) k/uL Glucose 153 H (74-99) mg/dL POC Glucose (mg/dL) 123 H (75-99) mg/dL Microbiology - Last 24 Hours (Table) 01/26/18 20:10 Blood Culture - Preliminary Blood No Growth after 24 hours Assessment and Plan Plan: Impression: #1 Acute exacerbation of COPD with secondary shortness of breath. Chest x-ray reveals chronic findings and the patient has no evidence of an acute pneumonia. She carries [id number] smoking history and she also smokes marijuana daily basis. #2 limited bronchiectatic changes in lung bases bilaterally. #3 Essential tremors. #4 Paroxysmal atrial fibrillation. Current rhythm is sinus bradycardia, with premature atrial complexes. #5 History of CVA/TIA. #6 Hyperlipidemia. #7 Gastroesophageal reflux disease. #8 Restless leg syndrome. #9 History of anxiety/depression. #10 Gastroesophageal reflux disease. #11 recent fall without any significant skeletal injuries. #12 impaired baseline performance and functional status. Plan Clinically improving. Continue same treatment. We'll start tapering steroids as of tomorrow. Continue same antibiotic coverage. We'll continue to follow.
[2018-01-28 17:41] LABS: Glucose,Whole Blood 117 mg/dL (75-99)
--- NOTE | 2018-01-28 19:58 | PN ---
PROGRESS NOTE DATE OF SERVICE: 01/28/2018. INTERVAL HISTORY: This 77-year-old woman who was admitted with COPD exacerbation is being closely monitored. Patient has dysphagia also. Dr. Hinds has seen the patient and recommended a barium swallow. No chest pain. No palpitations. No fever. EXAM: Alert and oriented x2. Pulse 76, blood pressure 108/66, respirations 16, temperature 98 degrees, pulse ox 91 percent on 2 L. HEENT is conjunctivae normal. Neck is no jugular venous distention. Cardiovascular: S1, S2 muffled. Respirations: Breath sounds diminished in the bases. A few scattered rhonchi and crackles. Abdomen is soft. Nontender. Central nervous system: No focal deficits. LAB STUDIES: WBC 15.2, hemoglobin is 12.5. ASSESSMENT: 1. Chronic obstructive pulmonary disease acute exacerbation with acute purulent tracheobronchitis. 2. Dysphagia for evaluation. 3. Benign tremors. 4. Atrial fibrillation. 5. Chronic obstructive pulmonary disease. 6. Cerebrovascular accident, transient ischemic attack. 7. Gastroesophageal reflux disease. 8. Hyperlipidemia. 9. History of pneumonia. 10.History of essential tremors. 11.History of chronic back pain/degenerative joint disease. 12.History of hyperlipidemia. 13.History of anxiety, depression. RECOMMENDATIONS AND DISCUSSION: Continue current management and continue with monitoring and symptomatic treatment. Otherwise at this time continue the bronchodilators. I would also recommend reduce the dose of IV steroids. Otherwise we will continue to monitor. Further recommendations to follow. Prognosis guarded. Follow barium swallow along with Gastroenterology. MMODL / IJN: [id number] /
[2018-01-28 20:48] LABS: Glucose,Whole Blood 147 mg/dL (75-99)
[2018-01-29] MEDS: methylPREDNISolone SOD SUCCI 40 MG/ML 1 ML VIAL IV SCH ×2 (01:41→07:38)
[2018-01-29] MEDS: IPRATROPIUM-ALBUTEROL 3 ML NEB INHALATION SCH ×4 (07:07→20:25)
[2018-01-29 07:25] LABS: Glucose,Whole Blood 135 mg/dL (75-99)
[2018-01-29] MEDS: CHOLECALCIFEROL 1,000 UNIT TAB PO SCH (07:39)
[2018-01-29] MEDS: FLUoxetine HCL 20 MG CAP PO SCH (07:39)
[2018-01-29] MEDS: INSULIN ASPART 100 UNIT/ML 1 ML 10 ML VIAL SQ SCH ×4 (07:39→21:05)
[2018-01-29] MEDS: ASPIRIN 81 MG PO SCH (07:39)
[2018-01-29] MEDS: ALPRAZolam 0.5 MG TAB PO PRN ×3 (07:39→21:07)
[2018-01-29] MEDS: MONTELUKAST 10 MG TAB PO SCH (07:39)
[2018-01-29] MEDS: ASCORBIC ACID 500 MG TAB PO SCH (07:39)
[2018-01-29] MEDS: PROPRANOLOL 10 MG TAB PO SCH ×3 (07:39→21:04)
[2018-01-29] MEDS: PANTOPRAZOLE 40 MG TABLET PO SCH (07:39)
[2018-01-29] MEDS: HEPARIN SODIUM,PORCINE 5,000 UNIT/ML 1 ML VIAL SQ SCH ×2 (07:40→21:04)
--- NOTE | 2018-01-29 09:15 | FL ---
EXAMINATION TYPE: FL barium swallow DATE OF EXAM: 01/29/2018 COMPARISON: None HISTORY: Dysphasia TECHNIQUE: A double air contrast UGI study is performed. FINDINGS: Esophagus dilates to normal caliber has normal contour to the gastroesophageal junction. Gastroesopha geal junction opens to normal caliber. Small self reducing sliding type hiatal hernia is present. A f ew tertiary contractions were evident during the examination. Mild presbyesophagus is present. IMPRESSIONS: 1. Mild presbyesophagus. 2. Small hiatal hernia.
[2018-01-29 10:59] LABS: Basophils % (A) 0 %; Eosinophils % (A) 0 %; HCT 36.6 % (34.0-46.0); HGB 12.4 gm/dL (11.4-16.0); Lymphocytes # (A) 0.6 k/uL (1.0-4.8); Lymphocytes % (A) 4 %; MCH 29.7 pg (25.0-35.0); MCHC 33.8 g/dL (31.0-37.0); MCV 87.6 fL (80.0-100.0); Mean Platelet Volume 7.2; Monocytes # (A) 0.6 k/uL (0-1.0); Monocytes % (A) 4 %; Neutrophils # (A) 11.6 k/uL (1.3-7.7); Neutrophils % (A) 91 %; Platelet Count 267 k/uL (150-450); RBC 4.18 m/uL (3.80-5.40); WBC 12.9 k/uL (3.8-10.6)
[2018-01-29 11:22] LABS: Anion Gap 6 mmol/L; Blood Urea Nitrogen 19 mg/dL (7-17); Calcium 9.3 mg/dL (8.4-10.2); Carbon Dioxide 32 mmol/L (22-30); Chloride 102 mmol/L (98-107); Glucose 107 mg/dL (74-99); Potassium 3.8 mmol/L (3.5-5.1); Sodium 140 mmol/L (137-145)
[2018-01-29 11:34] LABS: Glucose,Whole Blood 121 mg/dL (75-99)
[2018-01-29] MEDS: PANTOPRAZOLE 40 MG/10 ML VIAL IVP SCH ×2 (14:58→21:04)
--- NOTE | 2018-01-29 15:40 | P.PN ---
Subjective Progress Note Date: 01/29/18 Principal diagnosis: Acute exacerbation of COPD This is a 77-year-old female patient presented burst department yesterday because of worsening shortness of breath. The patient is known to me. The patient has COPD however she is not oxygen dependent. The patient has also history of atrial fibrillation and chronic tremors. She was in the hospital approximately 2 months ago after a fall and during that time CAT scan of the chest abdomen and pelvis was done and the CAT scan of the chest showed some limited bronchiectatic changes in lung bases bilaterally. No rib fractures. CAT scan of the cervical spine and head were negative. The patient was discharged home without being hospitalized. The patient is coming in today because of worsening shortness of breath. The exact trigger is not known. Most of the sputum production. No sick contacts. No travel. She lives with her children. She smokes marijuana. No hemoptysis. No pleurisy. Chest x-ray shows chronic findings consistent with COPD without any acute abnormalities. Her white cell count is not elevated. Rest of the blood work and electrodes are within normal limits per troponin's are negative. She was found to be afebrile. No significant swelling in lower extremities. On 01/28/2018, I'm seeing this patient for a follow-up. Feeling better. Less short of breath. No chest pain. No significant sputum production. Less bronchospastic and wheezy compared to yesterday. Still having tremors. Tolerating her diet. Tolerating her antibiotic treatment and the steroids. She is also on bronchodilators [id number]. No other significant events over the past 24 hours and the patient has been essentially stable for now. Reevaluated today on 01/29/2018, patient is feeling much better, breathing a lot easier, less short of breath, no wheezing, no chest pain, no hemoptysis, and hardly any cough. Patient remains on antibiotics and steroids, she is also on bronchodilators. Objective - Vital Signs Vital signs: Vital Signs Temp 97.4 F L 01/29/18 07:04 Pulse 86 01/29/18 10:40 Resp 28 H 01/29/18 07:04 BP 130/78 01/29/18 07:04 Pulse Ox 91 L 01/29/18 07:07 Intake & Output 01/28/18 01/29/18 01/29/18 18:59 06:59 18:59 Intake Total 800 Balance 800 Intake: IV 50 cefTRIAXone 1,000 mg In 50 Sodium Chloride 0.9% 50 ml @ 100 mls/hr IVPB Q24HR [facility] Rx#:[id number] Oral 750 Other: # Voids 1 1 # Bowel Movements 0 - Exam Physical Exam: Revealed a 77-year-old female in no distress. Head: Atraumatic, normocephalic. Lymphatics: No lymphadenopathy. HEENT:[Neck is supple.] [No neck masses.] [No thyromegaly.] [No JVD.] Chest: [Clear throughout, no crackles, no rhonchi, no wheezes.] Cardiac Exam: [Normal S1 and S2, no S3 gallop, no murmur.] Abdomen: [Soft, nontender, no megaly, no rebound, no guarding, normal bowel sounds.] Extremities: [No clubbing, no edema, no cyanosis.] Neurological Exam: [No focal neurologic deficit. Psychiatric: Normal mood, affect, and mental status examination.] - Labs CBC & Chem 7: 01/29/18 10:23 01/29/18 10:23 Labs: Abnormal Lab Results - Last 24 Hours (Table) 01/28/18 01/28/18 01/29/18 Range/Units 17:12 20:47 07:01 WBC (3.8-10.6) k/uL Neutrophils # (1.3-7.7) k/uL Lymphocytes # (1.0-4.8) k/uL Carbon Dioxide (22-30) mmol/L BUN (7-17) mg/dL Glucose (74-99) mg/dL POC Glucose (mg/dL) 117 H 147 H 135 H (75-99) mg/dL 01/29/18 01/29/18 01/29/18 Range/Units 10:23 10:23 11:30 WBC 12.9 H (3.8-10.6) k/uL Neutrophils # 11.6 H (1.3-7.7) k/uL Lymphocytes # 0.6 L (1.0-4.8) k/uL Carbon Dioxide 32 H (22-30) mmol/L BUN 19 H (7-17) mg/dL Glucose 107 H (74-99) mg/dL POC Glucose (mg/dL) 121 H (75-99) mg/dL Microbiology - Last 24 Hours (Table) 01/26/18 20:10 Blood Culture - Preliminary Blood No Growth after 48 hours Assessment and Plan Assessment: Impression: 1 acute exacerbation of COPD and a [id number] smoker. 2 multiple comorbidities including limited bronchiectasis, previous CVA, paroxysmal atrial fibrillation, GERD without esophagitis, restless leg syndrome , recent fall without any significant skeletal injuries, impaired baseline performance. Recommendation: Agree with the present treatment plan, consider discharge planning today or in the next 24 hours. Follow-up on outpatient basis. Time with Patient: Less than 30
--- NOTE | 2018-01-29 15:59 | PN ---
PROGRESS NOTE DATE OF SERVICE: 01/29/2018 This 77-year-old woman who was admitted with COPD, acute exacerbation, also had some dysphagia and presbyesophagus. No chest pain. No palpitations. Dr. Hinds is following the patient closely. The patient is still short of breath. On exam, alert and oriented x3. Pulse 74, pressure 130/78, respiration 20, temperature 97.4, pulse ox 91% on 4 L. HEENT: Conjunctivae normal. Oral mucosa moist. NECK: No jugular venous distention. No carotid bruit. No lymph node enlargement. CARDIOVASCULAR SYSTEM: S1, S2 muffled. RESPIRATORY SYSTEM: Breath sounds diminished at the bases. Bilateral scattered rhonchi and crackles. ABDOMEN: Soft, non-tender. NERVOUS SYSTEM: No focal deficit. LABS: WBC 12.9, hemoglobin 12.4. ASSESSMENT: 1. Chronic obstructive pulmonary disease, acute exacerbation, with acute purulent tracheobronchitis. 2. Dysphagia for evaluation of presbyesophagus. 3. Benign tremors. 4. Atrial fibrillation. 5. Chronic obstructive pulmonary disease. 6. Cerebrovascular accident, transient ischemic attack. 7. Gastroesophageal reflux disease. 8. Hyperlipidemia. 9. History of pneumonia. 10.History of essential tremors. 11.History of chronic back pain, degenerative joint disease. 12.History of hyperlipidemia. 13.Anxiety, depression. RECOMMENDATIONS AND DISCUSSION: I recommend to continue current medication, continue with the monitoring, symptomatic treatment. Otherwise at this time I recommend continuing with the current medication, continue with antibiotic, taper the steroids. Monitor blood sugars closely. Closely follow. Further recommendations to follow. MMODL / IJN: [id number] /
[2018-01-29 17:12] LABS: Glucose,Whole Blood 132 mg/dL (75-99)
[2018-01-29 20:42] LABS: Glucose,Whole Blood 126 mg/dL (75-99)
[2018-01-30] MEDS: IPRATROPIUM-ALBUTEROL 3 ML NEB INHALATION SCH ×2 (07:15→11:30)
[2018-01-30 07:24] LABS: Glucose,Whole Blood 91 mg/dL (75-99)
[2018-01-30] MEDS: PANTOPRAZOLE 40 MG/10 ML VIAL IVP SCH (07:30)
[2018-01-30] MEDS: predniSONE 20 MG TAB PO SCH ×2 (07:30→07:39)
[2018-01-30] MEDS: HEPARIN SODIUM,PORCINE 5,000 UNIT/ML 1 ML VIAL SQ SCH (07:30)
[2018-01-30] MEDS: PROPRANOLOL 10 MG TAB PO SCH (07:31)
[2018-01-30] MEDS: ASPIRIN 81 MG PO SCH (07:31)
[2018-01-30] MEDS: CHOLECALCIFEROL 1,000 UNIT TAB PO SCH (07:31)
[2018-01-30] MEDS: INSULIN ASPART 100 UNIT/ML 1 ML 10 ML VIAL SQ SCH ×2 (07:31→12:18)
[2018-01-30] MEDS: ASCORBIC ACID 500 MG TAB PO SCH (07:31)
[2018-01-30] MEDS: MONTELUKAST 10 MG TAB PO SCH (07:31)
[2018-01-30] MEDS: FLUoxetine HCL 20 MG CAP PO SCH (07:31)
[2018-01-30] MEDS: ALPRAZolam 0.5 MG TAB PO PRN (07:36)
[2018-01-30 09:47] LABS: Anion Gap 10 mmol/L; Basophils % (A) 0 %; Blood Urea Nitrogen 19 mg/dL (7-17); Carbon Dioxide 30 mmol/L (22-30); Chloride 101 mmol/L (98-107); Eosinophils % (A) 0 %; Glucose 84 mg/dL (74-99); HCT 40.5 % (34.0-46.0); HGB 13.4 gm/dL (11.4-16.0); Lymphocytes # (A) 2.1 k/uL (1.0-4.8); Lymphocytes % (A) 23 %; MCH 29.6 pg (25.0-35.0); MCV 89.9 fL (80.0-100.0); Mean Platelet Volume 7.5; Monocytes # (A) 0.7 k/uL (0-1.0); Monocytes % (A) 8 %; Neutrophils # (A) 6.1 k/uL (1.3-7.7); Neutrophils % (A) 68 %; Platelet Count 265 k/uL (150-450); Potassium 3.2 mmol/L (3.5-5.1); RDW 13.9 % (11.5-15.5); Sodium 141 mmol/L (137-145); WBC 9.1 k/uL (3.8-10.6)
[2018-01-30] MEDS ORDERED: Potassium Replacement Protocol 1 EACH MISC MISCELLANE PRN (10:07)
[2018-01-30] MEDS: POTASSIUM CHLORIDE ER 20 MEQ TAB.ER PO SCH ×2 (11:21→12:20)
[2018-01-30 11:22] LABS: Glucose,Whole Blood 99 mg/dL (75-99)
--- NOTE | 2018-01-30 12:09 | P.PN ---
Subjective Progress Note Date: 01/30/18 Principal diagnosis: Acute exacerbation of COPD This is a 77-year-old female patient presented burst department yesterday because of worsening shortness of breath. The patient is known to me. The patient has COPD however she is not oxygen dependent. The patient has also history of atrial fibrillation and chronic tremors. She was in the hospital approximately 2 months ago after a fall and during that time CAT scan of the chest abdomen and pelvis was done and the CAT scan of the chest showed some limited bronchiectatic changes in lung bases bilaterally. No rib fractures. CAT scan of the cervical spine and head were negative. The patient was discharged home without being hospitalized. The patient is coming in today because of worsening shortness of breath. The exact trigger is not known. Most of the sputum production. No sick contacts. No travel. She lives with her children. She smokes marijuana. No hemoptysis. No pleurisy. Chest x-ray shows chronic findings consistent with COPD without any acute abnormalities. Her white cell count is not elevated. Rest of the blood work and electrodes are within normal limits per troponin's are negative. She was found to be afebrile. No significant swelling in lower extremities. On 01/28/2018, I'm seeing this patient for a follow-up. Feeling better. Less short of breath. No chest pain. No significant sputum production. Less bronchospastic and wheezy compared to yesterday. Still having tremors. Tolerating her diet. Tolerating her antibiotic treatment and the steroids. She is also on bronchodilators [id number]. No other significant events over the past 24 hours and the patient has been essentially stable for now. Reevaluated today on 01/29/2018, patient is feeling much better, breathing a lot easier, less short of breath, no wheezing, no chest pain, no hemoptysis, and hardly any cough. Patient remains on antibiotics and steroids, she is also on bronchodilators. On 01/30/2018 patient seen in follow-up on medical surgical floor. In no acute distress, lung sounds are diminished, no rhonchi, no wheezes. Patient is having some clear sinus drainage. Overall breathing better. The results of her barium swallow were noted showed mild pressors by esophagitis, small hiatal hernia. Today's labs were noted, no leukocytosis, he was within normal limits, potassium is 3.2, BUN is 19, creatinine 0.74, diastolic basic metabolic panel was within normal limits. No fever and chills, patient continues on Rocephin, nebulized bronchodilators, and patient has been refusing of prednisone stating that it makes her extremely dizzy. Objective - Vital Signs Vital signs: Vital Signs Temp 97.2 F L 01/30/18 05:47 Pulse 77 01/30/18 11:41 Resp 16 01/30/18 11:41 BP 103/52 01/30/18 05:47 Pulse Ox 88 L 01/30/18 11:03 Intake & Output 01/29/18 01/30/18 01/30/18 18:59 06:59 18:59 Intake Total 600 600 Output Total 400 Balance 600 200 Intake: Oral 600 600 Output: Urine 400 Other: Voiding Method Bedside Commode # Voids 2 1 - Exam Physical Exam: Revealed a 77-year-old female in no distress. Head: Atraumatic, normocephalic. Lymphatics: No lymphadenopathy. HEENT:[Neck is supple.] [No neck masses.] [No thyromegaly.] [No JVD.] Chest: [Clear throughout, no crackles, no rhonchi, no wheezes.] Cardiac Exam: [Normal S1 and S2, no S3 gallop, no murmur.] Abdomen: [Soft, nontender, no megaly, no rebound, no guarding, normal bowel sounds.] Extremities: [No clubbing, no edema, no cyanosis.] Neurological Exam: [No focal neurologic deficit. Psychiatric: Normal mood, affect, and mental status examination.] - Labs CBC & Chem 7: 01/30/18 08:38 01/30/18 08:38 Labs: Abnormal Lab Results - Last 24 Hours (Table) 01/29/18 01/29/18 01/30/18 Range/Units 17:09 20:41 08:38 Potassium 3.2 L (3.5-5.1) mmol/L BUN 19 H (7-17) mg/dL POC Glucose (mg/dL) 132 H 126 H (75-99) mg/dL Microbiology - Last 24 Hours (Table) 01/26/18 20:10 Blood Culture - Preliminary Blood No Growth after 72 hours Assessment and Plan Plan: 1 acute exacerbation of COPD and a [id number] smoker. 2 multiple comorbidities including limited bronchiectasis, previous CVA, paroxysmal atrial fibrillation, GERD without esophagitis, restless leg syndrome , recent fall without any significant skeletal injuries, impaired baseline performance. Recommendation: Patient is doing well, breathing easier, no significant chest congestion, no wheezing. Is having some clear sinus drainage, otherwise no acute complaints. No acute events overnight. Pulmonary perspective patient is stable for discharge home today. She does qualify for home oxygen, she does not want to take any prednisone, stating that he makes extremely dizzy. Patient can finish outpatient course of oral antibiotics, possibly Ceftin or Levaquin. Patient can resume her maintenance nebulized bronchodilators, Singulair. Follow up with Dr. Valdez in the office in one week I performed a history & physical examination of the patient and discussed their management with my nurse practitioner, Chelsie Adler. I reviewed the nurse practitioner's note and agree with the documented findings and plan of care. Lung sounds are clear diminished. The findings and the impression was discussed with the patient. I attest to the documentation by the nurse practitioner. Time with Patient: Less than 30
[2018-01-30 15:11] VITALS: BP 111/60; PULSE 60; RESP 18; TEMP 96
[2018-01-30] MEDS ORDERED: PANTOPRAZOLE 40 MG TABLET PO SCH (17:30)
== END 2018-01-30 16:02 | disposition home health service (06) | DRG 192 ==
LOC: EC 19:34 → 4MS4W 21:19 → OBSVTOIN 01-29 06:16
PROVIDERS: ADMIT Hospitalist; ATTEND Hospitalist
DX: J44.0 Chronic obstructive pulmonary disease with (acute) lower respiratory infection (principal); J20.9 Acute bronchitis, unspecified; J44.1 Chronic obstructive pulmonary disease with (acute) exacerbation; E78.5 Hyperlipidemia, unspecified; F17.210 Nicotine dependence, cigarettes, uncomplicated; F32.9 Major depressive disorder, single episode, unspecified; F41.9 Anxiety disorder, unspecified; G25.0 Essential tremor; G25.81 Restless legs syndrome; I10 Essential (primary) hypertension; I48.0 Paroxysmal atrial fibrillation; I48.2 Chronic atrial fibrillation; I49.1 Atrial premature depolarization; K21.0 Gastro-esophageal reflux disease with esophagitis; K22.8 Other specified diseases of esophagus; K44.9 Diaphragmatic hernia without obstruction or gangrene; R13.10 Dysphagia, unspecified; W19.XXXA Unspecified fall, initial encounter; Z79.899 Other long term (current) drug therapy; Z80.8 Family history of malignant neoplasm of other organs or systems; Z86.73 Personal history of transient ischemic attack (TIA), and cerebral infarction without residual deficits; Z87.01 Personal history of pneumonia (recurrent); Z90.710 Acquired absence of both cervix and uterus; Z79.82 Long term (current) use of aspirin; Z79.51 Long term (current) use of inhaled steroids; Z88.2 Allergy status to sulfonamides; Z88.8 Allergy status to other drugs, medicaments and biological substances; G89.29 Other chronic pain
CPT/HCPCS: 36415; 71046; 74220; 80048; 80053; 82550; 82553; 83036; 83735; 83880; 84484; 85025; 85610; 85730; 87040; 93005; 94640; 94760; 99285

== ENCOUNTER → 2018-02-15 | Outpatient (CLI) | payer MEDICARE ==
--- NOTE | 2018-02-15 16:13 | MR ---
EXAMINATION TYPE: MR brain wo con DATE OF EXAM: 02/15/2018 1:44 PM COMPARISON: NONE HISTORY: Tremors, falls, Abn gait FINDINGS: The ventricles, basal cisterns and sulci overlying the cerebral convexities are mildly enlarged. There is evidence of mild periventricular white matter ischemic demyelination. Remote deep white matter insults are also noted. No acute edema is seen on diffusion weighted imaging. There is no evidence for midline shift or mass effect. Acute intracranial hemorrhage or extra-axial collection is not evident. The paranasal sinuses and mastoid air cells are well-aerated. IMPRESSION: Age-related atrophic and chronic small vessel ischemic change. No acute intracranial process at this time.
== END | disposition home or self-care (01) ==
LOC: RADMRIMAIN 13:09
PROVIDERS: ATTEND Physician Assistant Medical
DX: G31.1 Senile degeneration of brain, not elsewhere classified (principal); I67.82 Cerebral ischemia
CPT/HCPCS: 70551

== ENCOUNTER 2018-04-06 04:09 | Inpatient (IN) | payer MEDICARE ==
[2018-04-06] MEDS ORDERED: ONDANSETRON 4 MG/2 ML VIAL IVP STA (04:35)
[2018-04-06] MEDS ORDERED: SODIUM CHLORIDE 0.9% 500 ML 500 ML IV STA (04:35)
--- NOTE | 2018-04-06 05:14 | ED ---
Abdominal Pain HPI - General Chief Complaint: Abdominal Pain Stated Complaint: Abdominal Pain Time Seen by Provider: 04/06/18 04:34 Source: patient, EMS Mode of arrival: EMS Limitations: no limitations - History of Present Illness Initial Comments: Angel is a pleasant 77-year-old female who presents to the emergency department today via EMS for evaluation of abdominal pain, nausea or vomiting. Patient reports she was in her usual state of health throughout the day yesterday when she reports she woke around 2 in the morning with epigastric discomfort nausea and had a couple of episodes of non-bloody vomiting. Patient reports persistent epigastric abdominal discomfort she describes as pressure and pulling. Patient reports her last BM was yesterday morning, she states she had 3-4 soft stools. She has no history of abdominal surgeries or GI pathology. - Related Data Home Medications Medication Instructions Recorded Confirmed FLUoxetine HCL [PROzac] 20 mg PO DAILY 12/19/14 03/06/18 Cholecalciferol [Vitamin D3] 1,000 unit PO DAILY 01/12/17 03/06/18 Montelukast Sodium [Singulair] 10 mg PO DAILY 08/24/17 03/06/18 Omeprazole 40 mg PO DAILY 08/24/17 03/06/18 Albuterol Sulfate [Proair Hfa] 2 puff INHALATION RT-Q4H 03/06/18 03/06/18 Furosemide [Lasix] 20 mg PO DAILY 03/06/18 03/06/18 Tiotropium 18 Mcg/Puff [Spiriva] 1 puff INHALATION RT-DAILY 03/06/18 03/06/18 Previous Rx's Medication Instructions Recorded Apixaban [Eliquis] 5 mg PO BID #60 tab 03/07/18 ALPRAZolam [Xanax] 0.5 mg PO TID PRN #10 tab 03/08/18 Cefuroxime Axetil [Ceftin] 500 mg PO BID 7 Days #14 tab 03/08/18 HYDROcodone/APAP 5-325MG [[place] 1 tab PO BID PRN #20 tab 03/08/18 5-325] Metoprolol Tartrate [Lopressor] 50 mg PO BID #60 tab 03/08/18 Allergies Allergy/AdvReac Type Severity Reaction Status Date / Time ibuprofen Allergy Unknown Verified 03/06/18 08:38 Iodinated Contrast- Oral and Allergy Unknown Verified 03/06/18 08:38 IV Dye iodine Allergy Rash/Hives Verified 03/06/18 04:49 lorazepam [From Ativan] Allergy Hallucinati Verified 03/06/18 04:49 ons Sulfa (Sulfonamide Allergy Rash/Hives Verified 03/06/18 04:49 Antibiotics) topiramate [From Topamax] Allergy Unknown Verified 03/06/18 08:38 zolpidem tartrate Allergy Hallucinati Verified 03/06/18 04:49 [From Ambien] ons prednisone AdvReac DIZINESS Verified 03/06/18 04:49 Review of Systems ROS Statement: Those systems with pertinent positive or pertinent negative responses have been documented in the HPI. ROS Other: All systems not noted in ROS Statement are negative. Past Medical History Past Medical History: Atrial Fibrillation, COPD, CVA/TIA, Eye Disorder, GERD/ Reflux, Hyperlipidemia, Pneumonia Additional Past Medical History / Comment(s): Chronic atrial fibrillation per PMH but pt has no recollection of this, bronchiectasis, essential tremors, previous TIA, chronic lumbar back pain, past 6 months R shoulder/cervical pain, balance difficulty with falls, occasional low urinary output and uses lasix prn for this, bilateral varicose veins, dysphagia-able to take pills one at a time with water, small hiatal hernia, restless leg syndrome, seasonal ALLERGIES, History of Any Multi-Drug Resistant Organisms: None Reported Past Surgical History: Hysterectomy Additional Past Surgical History / Comment(s): 11/27/15 EGD with bx, bilateral cataracts removed with lens implants, colonoscopy with 1 benign polypectomy. Past Anesthesia/Blood Transfusion Reactions: No Reported Reaction Past Psychological History: Anxiety, Depression Smoking Status: Former smoker - Past Family History Father Family Medical History: Cancer Additional Family Medical History / Comment(s): Pt thinks father might have from stomach cancer. She was 2 yrs old when he . Sister(s) Family Medical History: Cancer Additional Family Medical History / Comment(s): Half sister with brain cancer. Mother Family Medical History: Dementia Additional Family Medical History / Comment(s): Mother had gallstones and a partial thyroidectomy for noncancerous reasons. General Exam - General Exam Comments Initial Comments: Physical Exam GENERAL: Frail, Elderly female HENT: Normocephalic Well healing contusion around right eye EYES: PERRL, EOMI PULMONARY: Unlabored respirations CARDIOVASCULAR: Iregularly irregular ABDOMEN: Soft Mild tenderness to palpation in epigastrium SKIN: Skin is pale : Deferred NEUROLOGIC: Tremor MUSCULOSKELETAL: Generalized atrophy PSYCHIATRIC: Normal psychiatric evaluation. Limitations: no limitations Limitations: no limitations Course Vital Signs 04/06/18 04/06/18 04:20 06:30 Temperature 98.5 F Pulse Rate 67 72 Respiratory 16 19 Rate Blood Pressure 124/67 141/69 O2 Sat by Pulse 97 95 Oximetry Medical Decision Making - Medical Decision Making Elderly female with epigastric abdominal pain and nausea and vomiting sudden onset Labs and imaging ordered Labs and imaging consistent with acute pancreatitis, computed tomography scan reveals inflammation of pancreas, no biliary duct dilatation sign patient care was discussed with Dr. Hernandez who accepts the admission request a consult to gastroenterology. Admission orders and consult were placed patient was updated. - Lab Data Result diagrams: 04/06/18 05:03 04/06/18 05:03 Lab Results 04/06/18 04/06/18 04/06/18 Range/Units 05:03 05:03 05:03 WBC 7.5 (3.8-10.6) k/uL RBC 4.29 (3.80-5.40) m/uL Hgb 12.6 (11.4-16.0) gm/dL Hct 37.5 (34.0-46.0) % MCV 87.3 (80.0-100.0) fL MCH 29.3 (25.0-35.0) pg MCHC 33.6 (31.0-37.0) g/dL RDW 13.5 (11.5-15.5) % Plt Count 222 (150-450) k/uL Neutrophils % 86 % Lymphocytes % 9 % Monocytes % 3 % Eosinophils % 1 % Basophils % 0 % Neutrophils # 6.4 (1.3-7.7) k/uL Lymphocytes # 0.7 L (1.0-4.8) k/uL Monocytes # 0.2 (0-1.0) k/uL Eosinophils # 0.1 (0-0.7) k/uL Basophils # 0.0 (0-0.2) k/uL Sodium 137 (137-145) mmol/L Potassium 4.0 (3.5-5.1) mmol/L Chloride 105 (98-107) mmol/L Carbon Dioxide 27 (22-30) mmol/L Anion Gap 5 mmol/L BUN 14 (7-17) mg/dL Creatinine 0.68 (0.52-1.04) mg/dL Est GFR (CKD-EPI)AfAm >90 (>60 ml/min/1.73 sqM) Est GFR (CKD-EPI)NonAf 85 (>60 ml/min/1.73 sqM) Glucose 124 H (74-99) mg/dL Plasma Lactic Acid Osmel 0.8 (0.7-2.0) mmol/L Calcium 9.0 (8.4-10.2) mg/dL Total Bilirubin 0.6 (0.2-1.3) mg/dL AST 13 L (14-36) U/L ALT 20 (9-52) U/L Alkaline Phosphatase 78 (38-126) U/L Total Protein 6.1 L (6.3-8.2) g/dL Albumin 3.6 (3.5-5.0) g/dL Amylase 1836 H* (30-110) U/L Lipase 23773 H (23-300) U/L Urine Color Urine Appearance (Clear) Urine pH (5.0-8.0) Ur Specific [place] (1.001-1.035) Urine Protein (Negative) Urine Glucose (UA) (Negative) Urine Ketones (Negative) Urine Blood (Negative) Urine Nitrite (Negative) Urine Bilirubin (Negative) Urine Urobilinogen (<2.0) mg/dL Ur Leukocyte Esterase (Negative) Urine RBC (0-5) /hpf Urine WBC (0-5) /hpf Ur Squamous Epith Cells (0-4) /hpf Urine Mucus (None) /hpf 04/06/18 Range/Units 06:15 WBC (3.8-10.6) k/uL RBC (3.80-5.40) m/uL Hgb (11.4-16.0) gm/dL Hct (34.0-46.0) % MCV (80.0-100.0) fL MCH (25.0-35.0) pg MCHC (31.0-37.0) g/dL RDW (11.5-15.5) % Plt Count (150-450) k/uL Neutrophils % % Lymphocytes % % Monocytes % % Eosinophils % % Basophils % % Neutrophils # (1.3-7.7) k/uL Lymphocytes # (1.0-4.8) k/uL Monocytes # (0-1.0) k/uL Eosinophils # (0-0.7) k/uL Basophils # (0-0.2) k/uL Sodium (137-145) mmol/L Potassium (3.5-5.1) mmol/L Chloride (98-107) mmol/L Carbon Dioxide (22-30) mmol/L Anion Gap mmol/L BUN (7-17) mg/dL Creatinine (0.52-1.04) mg/dL Est GFR (CKD-EPI)AfAm (>60 ml/min/1.73 sqM) Est GFR (CKD-EPI)NonAf (>60 ml/min/1.73 sqM) Glucose (74-99) mg/dL Plasma Lactic Acid [place]sm[place] (0.7-2.0) mmol/L Calcium (8.4-10.2) mg/dL Total Bilirubin (0.2-1.3) mg/dL AST (14-36) U/L ALT (9-52) U/L Alkaline Phosphatase (38-126) U/L Total Protein (6.3-8.2) g/dL Albumin (3.5-5.0) g/dL Amylase (30-110) U/L Lipase (23-300) U/L Urine Color Yellow Urine Appearance Clear (Clear) Urine pH 6.5 (5.0-8.0) Ur Specific [place] 1.032 (1.001-1.035) Urine Protein Trace H (Negative) Urine Glucose (UA) Negative (Negative) Urine Ketones Trace H (Negative) Urine Blood Moderate H (Negative) Urine Nitrite Negative (Negative) Urine Bilirubin Negative (Negative) Urine Urobilinogen <2.0 (<2.0) mg/dL Ur Leukocyte Esterase Negative (Negative) Urine RBC 92 H (0-5) /hpf Urine WBC 2 (0-5) /hpf Ur Squamous Epith Cells <1 (0-4) /hpf Urine Mucus Rare H (None) /hpf Disposition Clinical Impression: Pancreatitis Disposition: ADMITTED IP TO THIS HOSP
[2018-04-06 05:20] LABS: Basophils % (A) 0 %; Eosinophils # (A) 0.1 k/uL (0-0.7); Eosinophils % (A) 1 %; HCT 37.5 % (34.0-46.0); HGB 12.6 gm/dL (11.4-16.0); Lymphocytes # (A) 0.7 k/uL (1.0-4.8); Lymphocytes % (A) 9 %; MCH 29.3 pg (25.0-35.0); MCHC 33.6 g/dL (31.0-37.0); MCV 87.3 fL (80.0-100.0); Mean Platelet Volume 6.9; Monocytes # (A) 0.2 k/uL (0-1.0); Monocytes % (A) 3 %; Neutrophils # (A) 6.4 k/uL (1.3-7.7); Neutrophils % (A) 86 %; Platelet Count 222 k/uL (150-450); RBC 4.29 m/uL (3.80-5.40); RDW 13.5 % (11.5-15.5); WBC 7.5 k/uL (3.8-10.6)
[2018-04-06] MEDS ORDERED: FAMOTIDINE 20 MG/2 ML VIAL IV STA (05:25)
[2018-04-06] MEDS ORDERED: methylPREDNISolone SOD SUCCI 125 MG/2 ML VIAL IV STA (05:25)
[2018-04-06] MEDS ORDERED: diphenhydrAMINE 50 MG/ML 1 ML VIAL IVP STA (05:26)
[2018-04-06 05:29] LABS: ALT 20 U/L (9-52); AST 13 U/L (14-36); Albumin 3.6 g/dL (3.5-5.0); Alkaline Phosphatase 78 U/L (38-126); Anion Gap 5 mmol/L; Blood Urea Nitrogen 14 mg/dL (7-17); Carbon Dioxide 27 mmol/L (22-30); Chloride 105 mmol/L (98-107); Glucose 124 mg/dL (74-99); Sodium 137 mmol/L (137-145); Total Bilirubin 0.6 mg/dL (0.2-1.3); Total Protein 6.1 g/dL (6.3-8.2)
[2018-04-06 05:38] LABS: Amylase 1836 U/L (30-110)
[2018-04-06 06:05] LABS: Lipase 16152 U/L (23-300)
--- NOTE | 2018-04-06 06:32 | CT ---
EXAM: CT Abdomen and Pelvis With Intravenous Contrast CLINICAL HISTORY: Pain TECHNIQUE: Axial computed tomography images of the abdomen and pelvis with intravenous contrast. CTDI is 0.085, 0.085, Beverley 4, 8.5 mGy and DLP is 744.4 mGy-cm. This CT exam was performed using one or more of the following dose reduction techniques: automated exposure control, adjustment of the mA and/or kV according to patient size, and/or use of iterative reconstruction technique. COMPARISON: CT abdomen and pelvis dated 09/30/2016 FINDINGS: Lung bases: Reticular and groundglass opacities seen lung bases likely represents atelectasis. An infectious process is not excluded. Mediastinum: Small hiatal hernia. ABDOMEN: Liver: Unremarkable. Gallbladder and bile ducts: Unremarkable. Pancreas: Mild prominence the pancreatic duct. No obstructing lesion or mass identified. Mild upstream pancreatic atrophy. Spleen: Unremarkable. Adrenals: Unremarkable. Kidneys and ureters: Probable cyst within right kidney. Stomach and bowel: Mild stranding noted about the duodenum and head of pancreas, likely representing duodenal diverticulitis. Nonspecific duodenitis or pancreatitis is not excluded but felt to be less likely. Noninflamed colon diverticulosis. PELVIS: Appendix: Appendix is not visualized. Bladder: Unremarkable. Reproductive: Unremarkable as visualized. ABDOMEN and PELVIS: Intraperitoneal space: Unremarkable. Bones/joints: Degenerative changes the osseous structures remote compression deformity of L2. No dislocation. Soft tissues: Unremarkable. Vasculature: Vascular calcifications. No abdominal aortic aneurysm. Lymph nodes: Unremarkable. IMPRESSION: 1. Mild stranding noted about the duodenum and head of pancreas, likely representing duodenal diverticulitis. Nonspecific duodenitis or pancreatitis is not excluded but felt to be less likely. 2. Mild prominence the pancreatic duct. No obstructing lesion or mass identified. Mild upstream pancreatic atrophy. 3. Reticular and groundglass opacities seen lung bases likely represents atelectasis. An infectious process is not excluded.
[2018-04-06] MEDS ORDERED: NALOXONE 0.4 MG/ML 1 ML VIAL IV PRN (06:53)
[2018-04-06] MEDS ORDERED: MORPHINE SULFATE 4 MG/ML SYRINGE IV PRN (06:53)
[2018-04-06] MEDS ORDERED: SODIUM CHLORIDE 0.9% 1,000 ML IV ONE (06:53)
[2018-04-06] MEDS ORDERED: HYDROmorphone 1 MG/ML 1 ML SYRINGE IVP PRN (06:53)
[2018-04-06] MEDS ORDERED: ONDANSETRON 4 MG/2 ML VIAL IVP PRN (06:53)
[2018-04-06 07:02] LABS: Appearance,Urine Clear (Clear); Bilirubin,Urine Negative (Negative); Blood,Urine Moderate (Negative); Color,Urine Yellow; Glucose,Urine (UA) Negative (Negative); Ketones,Urine Trace (Negative); Leukocyte Esterase,Urine Negative (Negative); Mucus,Urine Rare /hpf; Nitrite,Urine Negative (Negative); PH, Urine 6.5 (5.0-8.0); Protein,Urine Trace (Negative); RBC,Urine 92 /hpf (0-5); Specific Gravity,Urine 1.032 (1.001-1.035); Squamous Epithelial Cell,Urine <1 /hpf (0-4); Urobilinogen,Urine <2.0 mg/dL (<2.0); WBC,Urine 2 /hpf (0-5)
[2018-04-06] MEDS: SODIUM CHLORIDE 0.9% 1,000 ML IV SCH ×4 (10:26→19:23)
[2018-04-06] MEDS: PANTOPRAZOLE 40 MG/10 ML VIAL IV SCH (10:26)
[2018-04-06 11:43] LABS: Glucose,Whole Blood 91 mg/dL (75-99)
--- NOTE | 2018-04-06 12:13 | P.HPIM ---
History of Present Illness This is a pleasant 77 years old female with past medical history of atrial fibrillation, COPD, TIA, GERD, hyperlipidemia, essential tremor, number back pain, as well as difficulty with falls, restless leg syndrome. He was a patient of Dr. De La Garza. And she presents because of abdominal pain of one- day duration, severe about 10/10 in severity. Burning and pressure sensation radiating to the hole surrounding area with nonspecificity. Associated with nausea vomiting, containing bowel with no blood. Patient has 3 bowel movements yesterday and she passes that because as well as usual. On admission his CBC and BMP were unremarkable however his amylase was elevated [place] 1836 [place] [address]. Also there is some hematuria in the urine. Patient also states she has recurrent falls and she fell 2 days ago and there is a bruise around her right eye. Patient denies headache or weakness. No numbness or abnormal sensation. Review of Systems CONSTITUTIONAL: No fever, no malaise, no fatigue. HEENT: No recent visual problems or hearing problems. Denied any sore throat. CARDIOVASCULAR: No orthopnea, PND, no palpitations, no syncope. PULMONARY: No shortness of breath, no cough, no hemoptysis. GASTROINTESTINAL: No diarrhea, no nausea, no vomiting, no abdominal pain. Normoactive bowel sounds. NEUROLOGICAL: No headaches, no weakness, no numbness. HEMATOLOGICAL: Denies any bleeding or petechiae. GENITOURINARY: Denies any burning micturition, frequency, or urgency. MUSCULOSKELETAL/RHEUMATOLOGICAL: Denies any joint pain, swelling, or any muscle pain. ENDOCRINE: Denies any polyuria or polydipsia. Past Medical History Past Medical History: Atrial Fibrillation, COPD, CVA/TIA, Eye Disorder, GERD/ Reflux, Hyperlipidemia, Pneumonia Additional Past Medical History / Comment(s): Chronic atrial fibrillation per PMH but pt has no recollection of this, bronchiectasis, essential tremors, previous TIA, chronic lumbar back pain, past 6 months R shoulder/cervical pain, balance difficulty with falls, occasional low urinary output and uses lasix prn for this, bilateral varicose veins, dysphagia-able to take pills one at a time with water, small hiatal hernia, restless leg syndrome, seasonal ALLERGIES, History of Any Multi-Drug Resistant Organisms: None Reported Past Surgical History: Hysterectomy Additional Past Surgical History / Comment(s): 11/27/15 EGD with bx, bilateral cataracts removed with lens implants, colonoscopy with 1 benign polypectomy. Past Anesthesia/Blood Transfusion Reactions: No Reported Reaction Past Psychological History: Anxiety, Depression Smoking Status: Former smoker - Past Family History Father Family Medical History: Cancer Additional Family Medical History / Comment(s): Pt thinks father might have from stomach cancer. She was 2 yrs old when he . Sister(s) Family Medical History: Cancer Additional Family Medical History / Comment(s): Half sister with brain cancer. Mother Family Medical History: Dementia Additional Family Medical History / Comment(s): Mother had gallstones and a partial thyroidectomy for noncancerous reasons. Medications and Allergies Home Medications Medication Instructions Recorded Confirmed Type FLUoxetine HCL [PROzac] 20 mg PO DAILY 12/19/14 04/06/18 History Montelukast Sodium [Singulair] 10 mg PO DAILY 08/24/17 04/06/18 History Omeprazole 40 mg PO DAILY 08/24/17 04/06/18 History Albuterol Sulfate [Proair Hfa] 2 puff INHALATION RT-Q4H 03/06/18 04/06/18 History Furosemide [Lasix] 20 mg PO DAILY 03/06/18 04/06/18 History Tiotropium 18 Mcg/Puff [Spiriva] 1 puff INHALATION RT-DAILY 03/06/18 04/06/18 History Apixaban [Eliquis] 5 mg PO BID #60 tab 03/07/18 04/06/18 Rx ALPRAZolam [Xanax] 0.5 mg PO TID PRN #10 tab 03/08/18 04/06/18 Rx HYDROcodone/APAP 5-325MG [[place] 1 tab PO BID PRN #20 tab 03/08/18 04/06/18 Rx 5-325] Metoprolol Tartrate [Lopressor] 50 mg PO BID #60 tab 03/08/18 04/06/18 Rx Allergies Allergy/AdvReac Type Severity Reaction Status Date / Time ibuprofen Allergy Unknown Verified 03/06/18 08:38 Iodinated Contrast- Oral and Allergy Unknown Verified 03/06/18 08:38 IV Dye iodine Allergy Rash/Hives Verified 03/06/18 04:49 lorazepam [From Ativan] Allergy Hallucinati Verified 03/06/18 04:49 ons Sulfa (Sulfonamide Allergy Rash/Hives Verified 03/06/18 04:49 Antibiotics) topiramate [From Topamax] Allergy Unknown Verified 03/06/18 08:38 zolpidem tartrate Allergy Hallucinati Verified 03/06/18 04:49 [From Ambien] ons prednisone AdvReac DIZINESS Verified 03/06/18 04:49 Physical Exam Vitals: Vital Signs Temp Pulse Resp BP Pulse Ox 04/06/18 08:00 18 04/06/18 06:30 72 19 141/69 95 04/06/18 04:20 98.5 F 67 16 124/67 97 Intake and Output 04/05/18 04/06/18 04/06/18 22:59 06:59 14:59 Other: Voiding Method Toilet # Voids 1 Weight 65.771 kg GENERAL: The patient is alert and oriented x3, not in any acute distress. Well developed, well nourished. HEENT: Pupils are round and equally reacting to light. EOMI. No scleral icterus. No conjunctival pallor. Normocephalic, atraumatic. No pharyngeal erythema. No thyromegaly. CARDIOVASCULAR: S1 and S2 present. No murmurs, rubs, or gallops. PULMONARY: Chest is clear to auscultation, no wheezing or crackles. -ABDOMEN: Soft, epigastric tenderness nondistended, normoactive bowel sounds. No palpable organomegaly. MUSCULOSKELETAL: No joint swelling or deformity. EXTREMITIES: No cyanosis, clubbing, or pedal edema. NEUROLOGICAL: Gross neurological examination did not reveal any focal deficits. SKIN: No rashes. Results CBC & Chem 7: 04/06/18 05:03 04/06/18 05:03 Labs: Abnormal Lab Results - Last 24 Hours (Table) 04/06/18 04/06/18 04/06/18 Range/Units 05:03 05:03 06:15 Lymphocytes # 0.7 L (1.0-4.8) k/uL Glucose 124 H (74-99) mg/dL AST 13 L (14-36) U/L Total Protein 6.1 L (6.3-8.2) g/dL Amylase 1836 H* (30-110) U/L Lipase 86611 H (23-300) U/L Urine Protein Trace H (Negative) Urine Ketones Trace H (Negative) Urine Blood Moderate H (Negative) Urine RBC 92 H (0-5) /hpf Urine Mucus Rare H (None) /hpf Thrombosis Risk Factor Assmnt - Choose All That Apply Any of the Below Risk Factors Present?: Yes Each Factor Represents 1 point: Abnormal pulmonary function (COPD), Obesity ( BMI >25) Other Risk Factors: Yes Each Risk Factor Represents 3 Points: Age 75 years or older Other congenital or acquired thrombophilia - If yes, enter type in comment: No Thrombosis Risk Factor Assessment Total Risk Factor Score: 5 Thrombosis Risk Factor Assessment Level: High Risk Assessment and Plan Assessment: DD no diverticulitis Acute pancreatitis Mild prominence of the pancreatic duct. Hematuria Recurrent falls History of Chronic atrial fibrillation History of GERD History of Hyperlipidemia History of Essential tremor History of Lumbar back pain, chronic History Difficulty in walking with falls History of Restless leg syndrome Plan: This is a pleasant 77 years old female who presents with abdominal pain and acute pancreatitis. Continue with IV fluids. Nothing by mouth advance diet as tolerated. Pain management. Also we'll check urinalysis. We'll order an ultrasound of the liver and retroperitoneal. Call GI consult Labs and medication were reviewed.. Continue same treatment. Continue with symptomatic treatment. Resume home medication. Monitor lytes and vitals. DVT and GI prophylaxis. Further recommendations of the clinical course of the patient DVT prophylaxis: Subcutaneous heparin GI Prophylaxis: Pepcid PT/OT: Pending Prognosis is guarded
--- NOTE | 2018-04-06 14:23 | US ---
EXAMINATION TYPE: US liver DATE OF EXAM: 04/06/2018 COMPARISON: 04/06/2018 CLINICAL HISTORY: pancreatitis. EXAM MEASUREMENTS: Liver Length: 15.5 cm Gallbladder Wall: 0.2 cm CBD: 0.6 cm Right Kidney: 9.0 x 3.7 x 4.4 cm Inpatient done portably, extensive overlying bowel gas, technically difficult Pancreas: partially obscured by overlying bowel gas, duct dilated at 5 mm Liver: wnl, somewhat limited visualization Gallbladder: wnl, somewhat limited visualization Evidence for sonographic Ochoa's sign: No CBD: wnl Right Kidney: wnl as seen, limited visualization IMPRESSION: 1. Limited exam due to overlying bowel gas. Majority of the pancreas is obscured by bowel gas.
[2018-04-06] MEDS: ALBUTEROL NEBULIZED 2.5 MG/3 ML INHALATION SCH ×2 (16:12→19:39)
[2018-04-06] MEDS: IPRATROPIUM 0.5 MG/2.5 ML NEBU INHALATION SCH ×2 (16:14→19:40)
[2018-04-06] MEDS: APIXABAN 5 MG TAB PO SCH (20:51)
[2018-04-06] MEDS: ALPRAZolam 0.5 MG TAB PO PRN (20:51)
[2018-04-06] MEDS: METOPROLOL TARTRATE 50 MG TAB PO SCH (20:51)
[2018-04-06] MEDS ORDERED: HEPARIN SODIUM,PORCINE 5,000 UNIT/ML 1 ML VIAL SQ SCH (21:00)
[2018-04-06] MEDS ORDERED: FAMOTIDINE 20 MG/2 ML VIAL IV SCH (21:00)
--- NOTE | 2018-04-06 21:47 | P.CONS ---
History of Present Illness - Reason for Consult Consult date: 04/06/18 Pancreatitis Requesting physician: Abdi E Sheet - Chief Complaint Abdominal pain - History of Present Illness The patient is a pleasant 77-year-old female with a medical history significant for atrial fibrillation, COPD, dyslipidemia and back pain who presented to the hospital due to complaints of abdominal pain. Per the patient the pain was severe, in the epigastric region of her abdomen and described as sharp and burning in duration. She denies any prior episodes of similar pain. She does report associated nausea and vomiting. She does report some loose stool in association with the pain but denies any, melena, or hematochezia. She denies any history of significant alcohol use. On presentation to the hospital the patient was found to have marked elevation in her amylase at 1836 and lipase at 16,152. Liver enzymes were normal with a total bilirubin 0.6, alkaline phosphatase 78, AST 13 and ALT 20. No leukocytosis on presentation. The patient reports that she has had EGD in the past which was significant for a hiatal hernia and a colonoscopy approximately 6 years ago in [facility] with polypectomy. She denies any unintentional weight loss. Computed tomography scan on presentation showed mild stranding of the duodenum and head of the pancreas with a mild prominence of the pancreatic duct. She also had an ultrasound in evaluation which was limited secondary to bowel gas which showed a normal CBD and limited visualization of the gallbladder. Currently she is reporting the pain is improved and denies any fevers or chills. Review of Systems REVIEW OF SYSTEMS: CARDIO: Denies any chest pain or palpitations. PULMONARY: Denies any shortness of breath or wheezing. GENITOURINARY: No dysuria or hematuria. MUSCULOSKELETAL: No weakness reported. SKIN: Denies any new rashes or lesions, jaundice or pallor. PSYCHIATRIC: Denies any depression or anxiety. NEUROLOGY: Denies headache, denies any new focal deficits. EARS: No tinnitus, discharge or new hearing loss. NOSE: No discharge or congestion. EYES: No pain in eyes or change in vision. CONSTITUTIONAL: No recent weight loss. No fever, chills, night sweats. Past Medical History Past Medical History: Atrial Fibrillation, COPD, CVA/TIA, Eye Disorder, GERD/ Reflux, Hyperlipidemia, Pneumonia Additional Past Medical History / Comment(s): Chronic atrial fibrillation per PMH but pt has no recollection of this, bronchiectasis, essential tremors, previous TIA, chronic lumbar back pain, past 6 months R shoulder/cervical pain, balance difficulty with falls, occasional low urinary output and uses lasix prn for this, bilateral varicose veins, dysphagia-able to take pills one at a time with water, small hiatal hernia, restless leg syndrome, seasonal ALLERGIES, History of Any Multi-Drug Resistant Organisms: None Reported Past Surgical History: Hysterectomy Additional Past Surgical History / Comment(s): 11/27/15 EGD with bx, bilateral cataracts removed with lens implants, colonoscopy with 1 benign polypectomy. Past Anesthesia/Blood Transfusion Reactions: No Reported Reaction Past Psychological History: Anxiety, Depression Smoking Status: Former smoker - Past Family History Father Family Medical History: Cancer Additional Family Medical History / Comment(s): Pt thinks father might have from stomach cancer. She was 2 yrs old when he . Sister(s) Family Medical History: Cancer Additional Family Medical History / Comment(s): Half sister with brain cancer. Mother Family Medical History: Dementia Additional Family Medical History / Comment(s): Mother had gallstones and a partial thyroidectomy for noncancerous reasons. Medications and Allergies Home Medications Medication Instructions Recorded Confirmed Type FLUoxetine HCL [PROzac] 20 mg PO DAILY 12/19/14 04/06/18 History Montelukast Sodium [Singulair] 10 mg PO DAILY 08/24/17 04/06/18 History Omeprazole 40 mg PO DAILY 08/24/17 04/06/18 History Albuterol Sulfate [Proair Hfa] 2 puff INHALATION RT-Q4H 03/06/18 04/06/18 History Furosemide [Lasix] 20 mg PO DAILY 03/06/18 04/06/18 History Tiotropium 18 Mcg/Puff [Spiriva] 1 puff INHALATION RT-DAILY 03/06/18 04/06/18 History Apixaban [Eliquis] 5 mg PO BID #60 tab 03/07/18 04/06/18 Rx ALPRAZolam [Xanax] 0.5 mg PO TID PRN #10 tab 03/08/18 04/06/18 Rx HYDROcodone/APAP 5-325MG [[place] 1 tab PO BID PRN #20 tab 03/08/18 04/06/18 Rx 5-325] Metoprolol Tartrate [Lopressor] 50 mg PO BID #60 tab 03/08/18 04/06/18 Rx Allergies Allergy/AdvReac Type Severity Reaction Status Date / Time ibuprofen Allergy Unknown Verified 03/06/18 08:38 Iodinated Contrast- Oral and Allergy Unknown Verified 03/06/18 08:38 IV Dye iodine Allergy Rash/Hives Verified 03/06/18 04:49 lorazepam [From Ativan] Allergy Hallucinati Verified 03/06/18 04:49 ons Sulfa (Sulfonamide Allergy Rash/Hives Verified 03/06/18 04:49 Antibiotics) topiramate [From Topamax] Allergy Unknown Verified 03/06/18 08:38 zolpidem tartrate Allergy Hallucinati Verified 03/06/18 04:49 [From Ambien] ons prednisone AdvReac DIZINESS Verified 03/06/18 04:49 Physical Exam Vitals: Vital Signs Temp Pulse Pulse Resp BP BP Pulse Ox 04/06/18 20:45 18 94 L 04/06/18 20:44 98.2 F 81 18 111/56 90 L 04/06/18 19:51 73 04/06/18 19:42 72 04/06/18 16:00 77 18 04/06/18 13:27 98.2 F 77 18 111/59 92 L 04/06/18 08:00 18 04/06/18 06:30 72 19 141/69 95 04/06/18 04:20 98.5 F 67 16 124/67 97 Intake and Output 04/06/18 04/06/18 04/06/18 06:59 14:59 22:59 Other: Voiding Method Toilet Toilet # Voids 2 2 Weight 65.771 kg Results CBC & Chem 7: 04/06/18 05:03 04/06/18 05:03 Labs: Abnormal Lab Results - Last 24 Hours (Table) 04/06/18 04/06/18 04/06/18 Range/Units 05:03 05:03 06:15 Lymphocytes # 0.7 L (1.0-4.8) k/uL Glucose 124 H (74-99) mg/dL AST 13 L (14-36) U/L Total Protein 6.1 L (6.3-8.2) g/dL Amylase 1836 H* (30-110) U/L Lipase 56285 H (23-300) U/L Urine Protein Trace H (Negative) Urine Ketones Trace H (Negative) Urine Blood Moderate H (Negative) Urine RBC 92 H (0-5) /hpf Urine Mucus Rare H (None) /hpf CT scan - abdomen: report reviewed (Computed tomography scan on presentation showed mild stranding of the duodenum and head of the pancreas with a mild prominence of the pancreatic duct. She also had an ultrasound in evaluation which was limited secondary to bowel gas which showed a normal CBD and limited visualization of the gallbladder.) Assessment and Plan (1) Pancreatitis Narrative/Plan: Pancreatitis of unknown etiology with no elevation in liver enzymes or evidence of gallstones on imaging to suggest biliary etiology or recent alcohol use. The patient is on Lasix at home which has been associated with pancreatitis however unclear if this is etiology of her presentation. Even the patient's age and findings of mild pancreatic duct dilation on imaging she will need further evaluation to rule out underlying malignancy as an outpatient with endoscopic ultrasound. Current Visit: Yes Status: Acute Code(s): K85.90 - ACUTE PANCREATITIS WITHOUT NECROSIS OR INFECTION, UNSP SNOMED Code(s): 83800763 (2) Abdominal pain Narrative/Plan: Secondary to above Current Visit: Yes Status: Acute Code(s): R10.9 - UNSPECIFIED ABDOMINAL PAIN SNOMED Code(s): 62895678 Plan: Supportive care Liquid diet, advance as tolerated Monitor liver enzymes Imaging reviewed Pain control Continue fluid hydration Follow-up with gastroenterology for scheduling of endoscopic ultrasound Thank you for allowing us to participate in the care of this patient we will continue to follow
[2018-04-07] MEDS: ALBUTEROL NEBULIZED 2.5 MG/3 ML INHALATION SCH ×7 (00:15→23:10)
[2018-04-07] MEDS: HYDROcodone/APAP 5-325MG 1 EACH TAB PO PRN ×2 (00:25→09:52)
[2018-04-07] MEDS: SODIUM CHLORIDE 0.9% 1,000 ML IV SCH ×3 (02:05→20:53)
[2018-04-07 07:31] LABS: Basophils % (A) 0 %; Eosinophils # (A) 0.3 k/uL (0-0.7); Eosinophils % (A) 4 %; HCT 32.3 % (34.0-46.0); HGB 10.5 gm/dL (11.4-16.0); Lymphocytes # (A) 1.8 k/uL (1.0-4.8); Lymphocytes % (A) 25 %; MCH 28.9 pg (25.0-35.0); MCHC 32.4 g/dL (31.0-37.0); MCV 89.3 fL (80.0-100.0); Mean Platelet Volume 6.7; Monocytes # (A) 0.5 k/uL (0-1.0); Monocytes % (A) 7 %; Neutrophils # (A) 4.4 k/uL (1.3-7.7); Neutrophils % (A) 61 %; Platelet Count 196 k/uL (150-450); RBC 3.62 m/uL (3.80-5.40); RDW 13.6 % (11.5-15.5); WBC 7.2 k/uL (3.8-10.6)
[2018-04-07 07:45] LABS: ALT 20 U/L (9-52); AST 10 U/L (14-36); Albumin 2.7 g/dL (3.5-5.0); Alkaline Phosphatase 55 U/L (38-126); Anion Gap 2 mmol/L; Bilirubin, Delta 0.1 mg/dL (0.0-0.2); Bilirubin,Unconjugated 0.9 mg/dL (0.0-1.1); Blood Urea Nitrogen 7 mg/dL (7-17); Calcium 8.5 mg/dL (8.4-10.2); Carbon Dioxide 27 mmol/L (22-30); Chloride 112 mmol/L (98-107); Glucose 85 mg/dL (74-99); Sodium 141 mmol/L (137-145); Total Protein 5.1 g/dL (6.3-8.2)
[2018-04-07] MEDS: IPRATROPIUM 0.5 MG/2.5 ML NEBU INHALATION SCH ×4 (07:45→20:15)
[2018-04-07] MEDS: METOPROLOL TARTRATE 50 MG TAB PO SCH ×2 (09:52→20:53)
[2018-04-07] MEDS: FLUoxetine HCL 20 MG CAP PO SCH (09:53)
[2018-04-07] MEDS: PANTOPRAZOLE 40 MG/10 ML VIAL IV SCH (09:53)
[2018-04-07] MEDS: MONTELUKAST 10 MG TAB PO SCH (09:54)
[2018-04-07] MEDS: APIXABAN 5 MG TAB PO SCH ×2 (09:54→20:53)
[2018-04-07] MEDS: FUROSEMIDE 20 MG TAB PO SCH (09:54)
--- NOTE | 2018-04-07 10:43 | P.PN ---
Subjective This is a pleasant 77 years old female with past medical history of atrial fibrillation, COPD, TIA, GERD, hyperlipidemia, essential tremor, number back pain, as well as difficulty with falls, restless leg syndrome. He was a patient of Dr. De La Garza. And she presents because of abdominal pain of one- day duration, severe about 10/10 in severity. Burning and pressure sensation radiating to the hole surrounding area with nonspecificity. Associated with nausea vomiting, containing bowel with no blood. Patient has 3 bowel movements yesterday and she passes that because as well as usual. On admission his CBC and BMP were unremarkable however his amylase was elevated at 1836 [place] [address]. Also there is some hematuria in the urine. Patient also states she has recurrent falls and she fell 2 days ago and there is a bruise around her right eye. Patient denies headache or weakness. No numbness or abnormal sensation. 04/07/2018 patient's was sitting in bed in mild distress because she wanted her copy. Her pain in the epigastrium is much improved however she still have significant tenderness on examination. She'll continue on IV fluids. Patient denies chest pain or dyspnea. Patient restarted on her Eliquis. Liver ultrasound : Which was unremarkable . GI evaluation is greatly appreciated. Patient will benefit from endoscopic ultrasound which can be done as an outpatient for evaluation for possible malignancy as she has dilated pancreatic duct. Diet is advanced, currently on liquid diet , liver enzymes within normal limits today either. Objective - Vital Signs Vital signs: Vital Signs Temp 97.6 F 04/07/18 05:00 Pulse 72 04/07/18 07:56 Resp 18 04/07/18 05:00 BP 102/50 04/07/18 06:16 Pulse Ox 92 L 04/07/18 05:00 Intake & Output 04/06/18 04/07/18 04/07/18 18:59 06:59 18:59 Intake Total 1700 Balance 1700 Intake: Intake, IV Titration 1350 Amount Sodium Chloride 0.9% 1, 1350 000 ml @ 150 mls/hr IV . Q6H40M [facility] Rx#:[id number] Oral 350 Other: Voiding Method Toilet Bedside Commode # Voids 2 2 - Exam GENERAL: The patient is alert and oriented x3, not in any acute distress. Well developed, well nourished. HEENT: Pupils are round and equally reacting to light. EOMI. No scleral icterus. No conjunctival pallor. Normocephalic, atraumatic. No pharyngeal erythema. No thyromegaly. CARDIOVASCULAR: S1 and S2 present. No murmurs, rubs, or gallops. PULMONARY: Chest is clear to auscultation, no wheezing or crackles. -ABDOMEN: Soft, gastric tenderness with no rebound tenderness. nondistended, normoactive bowel sounds. No palpable organomegaly. MUSCULOSKELETAL: No joint swelling or deformity. EXTREMITIES: No cyanosis, clubbing, or pedal edema. NEUROLOGICAL: Gross neurological examination did not reveal any focal deficits. SKIN: No rashes. - Labs CBC & Chem 7: 04/07/18 07:02 04/07/18 07:02 Labs: Abnormal Lab Results - Last 24 Hours (Table) 04/07/18 04/07/18 Range/Units 07:02 07:02 RBC 3.62 L (3.80-5.40) m/uL Hgb 10.5 L (11.4-16.0) gm/dL Hct 32.3 L (34.0-46.0) % Chloride 112 H (98-107) mmol/L AST 10 L (14-36) U/L Total Protein 5.1 L (6.3-8.2) g/dL Albumin 2.7 L (3.5-5.0) g/dL Assessment and Plan Assessment: [place] diverticulitis Acute pancreatitis Dilated pancreatic duct, patient will need endoscopic ultrasound for evaluation possible malignancy. Mild prominence of the pancreatic duct. Hematuria Recurrent falls History of Chronic atrial fibrillation History of GERD History of Hyperlipidemia History of Essential tremor History of Lumbar back pain, chronic History Difficulty in walking with falls History of Restless leg syndrome Plan: This is a pleasant 77 years old female who presents with abdominal pain and acute pancreatitis. Continue with IV fluids. Nothing by mouth advance diet as tolerated. Pain management. Also we'll check urinalysis. We'll order an ultrasound of the liver and retroperitoneal. Call GI consult Labs and medication were reviewed.. Continue same treatment. Continue with symptomatic treatment. Resume home medication. Monitor lytes and vitals. DVT and GI prophylaxis. Further recommendations of the clinical course of the patient DVT prophylaxis: Subcutaneous heparin GI Prophylaxis: Pepcid PT/OT: Pending Prognosis is guarded
[2018-04-07] MEDS: ALPRAZolam 0.5 MG TAB PO PRN (20:53)
[2018-04-08] MEDS: ALBUTEROL NEBULIZED 2.5 MG/3 ML INHALATION SCH ×6 (03:22→23:03)
[2018-04-08] MEDS: SODIUM CHLORIDE 0.9% 1,000 ML IV SCH ×2 (04:59→16:22)
[2018-04-08 07:42] LABS: Basophils % (A) 0 %; Eosinophils # (A) 0.3 k/uL (0-0.7); Eosinophils % (A) 5 %; HCT 31.5 % (34.0-46.0); HGB 10.5 gm/dL (11.4-16.0); Lymphocytes # (A) 1.5 k/uL (1.0-4.8); Lymphocytes % (A) 24 %; MCH 29.5 pg (25.0-35.0); MCHC 33.4 g/dL (31.0-37.0); MCV 88.2 fL (80.0-100.0); Mean Platelet Volume 6.9; Monocytes # (A) 0.4 k/uL (0-1.0); Monocytes % (A) 7 %; Neutrophils # (A) 3.7 k/uL (1.3-7.7); Neutrophils % (A) 61 %; Platelet Count 199 k/uL (150-450); RBC 3.57 m/uL (3.80-5.40); RDW 13.5 % (11.5-15.5)
[2018-04-08 08:03] LABS: ALT 20 U/L (9-52); AST 9 U/L (14-36); Albumin 2.5 g/dL (3.5-5.0); Alkaline Phosphatase 54 U/L (38-126); Anion Gap 5 mmol/L; Bilirubin, Delta 0.2 mg/dL (0.0-0.2); Bilirubin,Unconjugated 0.8 mg/dL (0.0-1.1); Blood Urea Nitrogen 5 mg/dL (7-17); Calcium 8.2 mg/dL (8.4-10.2); Carbon Dioxide 24 mmol/L (22-30); Chloride 112 mmol/L (98-107); Glucose 86 mg/dL (74-99); Lipase 202 U/L (23-300); Potassium 3.5 mmol/L (3.5-5.1); Sodium 141 mmol/L (137-145); Total Protein 4.8 g/dL (6.3-8.2)
[2018-04-08] MEDS: HYDROcodone/APAP 5-325MG 1 EACH TAB PO PRN (08:05)
[2018-04-08] MEDS: FLUoxetine HCL 20 MG CAP PO SCH (08:05)
[2018-04-08] MEDS: MONTELUKAST 10 MG TAB PO SCH (08:05)
[2018-04-08] MEDS: FUROSEMIDE 20 MG TAB PO SCH (08:06)
[2018-04-08] MEDS: IPRATROPIUM 0.5 MG/2.5 ML NEBU INHALATION SCH ×4 (08:06→19:29)
[2018-04-08] MEDS: PANTOPRAZOLE 40 MG/10 ML VIAL IV SCH (08:07)
[2018-04-08] MEDS: APIXABAN 5 MG TAB PO SCH ×2 (08:07→22:07)
[2018-04-08] MEDS: METOPROLOL TARTRATE 50 MG TAB PO SCH ×2 (08:07→22:06)
[2018-04-08] MEDS: ALPRAZolam 0.5 MG TAB PO PRN (20:12)
[2018-04-09] MEDS ORDERED: ACETAMINOPHEN TAB 325 MG TAB PO PRN (00:19)
[2018-04-09] MEDS: ALBUTEROL NEBULIZED 2.5 MG/3 ML INHALATION SCH ×5 (03:08→21:09)
[2018-04-09] MEDS: SODIUM CHLORIDE 0.9% 1,000 ML IV SCH ×2 (06:04→18:21)
[2018-04-09] MEDS: IPRATROPIUM 0.5 MG/2.5 ML NEBU INHALATION SCH ×4 (07:18→21:09)
[2018-04-09] MEDS: APIXABAN 5 MG TAB PO SCH ×2 (07:48→22:21)
[2018-04-09] MEDS: FLUoxetine HCL 20 MG CAP PO SCH (07:48)
[2018-04-09] MEDS: FUROSEMIDE 20 MG TAB PO SCH (07:49)
[2018-04-09] MEDS: MONTELUKAST 10 MG TAB PO SCH (07:49)
[2018-04-09] MEDS: ALPRAZolam 0.5 MG TAB PO PRN ×3 (07:49→22:21)
[2018-04-09] MEDS: METOPROLOL TARTRATE 50 MG TAB PO SCH ×2 (07:49→22:21)
[2018-04-09 08:31] LABS: Basophils % (A) 0 %; Eosinophils # (A) 0.4 k/uL (0-0.7); Eosinophils % (A) 7 %; HCT 34.3 % (34.0-46.0); HGB 10.9 gm/dL (11.4-16.0); Lymphocytes # (A) 1.4 k/uL (1.0-4.8); Lymphocytes % (A) 29 %; MCHC 31.8 g/dL (31.0-37.0); Mean Platelet Volume 6.8; Monocytes # (A) 0.4 k/uL (0-1.0); Monocytes % (A) 7 %; Neutrophils # (A) 2.7 k/uL (1.3-7.7); Neutrophils % (A) 53 %; Platelet Count 220 k/uL (150-450); RBC 3.89 m/uL (3.80-5.40); RDW 13.6 % (11.5-15.5)
[2018-04-09 08:45] LABS: ALT 19 U/L (9-52); AST 10 U/L (14-36); Albumin 2.9 g/dL (3.5-5.0); Alkaline Phosphatase 65 U/L (38-126); Anion Gap 3 mmol/L; Bilirubin, Delta 0.2 mg/dL (0.0-0.2); Bilirubin,Unconjugated 0.8 mg/dL (0.0-1.1); Blood Urea Nitrogen 3 mg/dL (7-17); Calcium 8.6 mg/dL (8.4-10.2); Carbon Dioxide 29 mmol/L (22-30); Chloride 110 mmol/L (98-107); Glucose 98 mg/dL (74-99); Lipase 168 U/L (23-300); Potassium 3.1 mmol/L (3.5-5.1); Sodium 142 mmol/L (137-145); Total Protein 5.3 g/dL (6.3-8.2)
--- NOTE | 2018-04-09 09:03 | P.PN ---
Subjective This is a pleasant 77 years old female with past medical history of atrial fibrillation, COPD, TIA, GERD, hyperlipidemia, essential tremor, number back pain, as well as difficulty with falls, restless leg syndrome. He was a patient of Dr. De La Garza. And she presents because of abdominal pain of one- day duration, severe about 10/10 in severity. Burning and pressure sensation radiating to the hole surrounding area with nonspecificity. Associated with nausea vomiting, containing bowel with no blood. Patient has 3 bowel movements yesterday and she passes that because as well as usual. On admission his CBC and BMP were unremarkable however his amylase [place] 1836 [place] [address]. Also there is some hematuria in the urine. Patient also states she has recurrent falls and she fell 2 days ago and there is a bruise around her right eye. Patient denies headache or weakness. No numbness or abnormal sensation. 04/07/2018 patient's was sitting in bed in mild distress because she wanted her copy. Her pain in the epigastrium is much improved however she still have significant tenderness on examination. She'll continue on IV fluids. Patient denies chest pain or dyspnea. Patient restarted on her Eliquis. Liver ultrasound : Which was unremarkable . GI evaluation is greatly appreciated. Patient will benefit from endoscopic ultrasound which can be done as an outpatient for evaluation for possible malignancy as she has dilated pancreatic duct. Diet is advanced, currently on liquid diet , liver enzymes within normal limits today either. 04/08/2018 Patient abdominal pain, nausea vomiting are improving. Patient passing gases. Decrease IV fluids. Lipase and amylase came back to normal. He BC and BMP unremarkable. Patient was instructed about her problems including dilated pancreatic duct with a recommendation of the gastroenterologists for endoscopic ultrasound to exclude diseases including but not limited to cancer. Patient verbalized understanding and acceptance and she said she will follow up with the GI as instructed. Objective - Vital Signs Vital signs: Vital Signs Temp 97.8 F 04/08/18 13:24 Pulse 62 04/08/18 16:00 Resp 16 04/08/18 16:00 BP 91/53 04/08/18 13:24 Pulse Ox 96 04/08/18 13:24 Intake & Output 04/07/18 04/08/18 04/08/18 18:59 06:59 18:59 Intake Total 240 1200 600 Balance 240 1200 600 Intake: Intake, IV Titration 1200 Amount Sodium Chloride 0.9% 1, 1200 000 ml @ 50 mls/hr IV . Q20H [facility] Rx#:[id number] Oral 240 600 Other: Voiding Method Bedside Commode Bedside Commode Bedside Commode # Voids 4 4 4 - Exam GENERAL: The patient is alert and oriented x3, not in any acute distress. Well developed, well nourished. HEENT: Pupils are round and equally reacting to light. EOMI. No scleral icterus. No conjunctival pallor. Normocephalic, atraumatic. No pharyngeal erythema. No thyromegaly. CARDIOVASCULAR: S1 and S2 present. No murmurs, rubs, or gallops. PULMONARY: Chest is clear to auscultation, no wheezing or crackles. -ABDOMEN: Soft, gastric tenderness with no rebound tenderness. nondistended, normoactive bowel sounds. No palpable organomegaly. MUSCULOSKELETAL: No joint swelling or deformity. EXTREMITIES: No cyanosis, clubbing, or pedal edema. NEUROLOGICAL: Gross neurological examination did not reveal any focal deficits. SKIN: No rashes. - Labs CBC & Chem 7: 04/08/18 07:15 04/08/18 07:15 Labs: Abnormal Lab Results - Last 24 Hours (Table) 04/08/18 04/08/18 Range/Units 07:15 07:15 RBC 3.57 L (3.80-5.40) m/uL Hgb 10.5 L (11.4-16.0) gm/dL Hct 31.5 L (34.0-46.0) % Chloride 112 H (98-107) mmol/L BUN 5 L (7-17) mg/dL Calcium 8.2 L (8.4-10.2) mg/dL AST 9 L (14-36) U/L Total Protein 4.8 L (6.3-8.2) g/dL Albumin 2.5 L (3.5-5.0) g/dL Assessment and Plan Assessment: [place] diverticulitis Acute pancreatitis Dilated pancreatic duct, patient will need endoscopic ultrasound for evaluation possible malignancy. Mild prominence of the pancreatic duct. Hematuria Recurrent falls History of Chronic atrial fibrillation History of GERD History of Hyperlipidemia History of Essential tremor History of Lumbar back pain, chronic History Difficulty in walking with falls History of Restless leg syndrome Plan: This is a pleasant 77 years old female who presents with abdominal pain and acute pancreatitis. Continue with IV fluids. Nothing by mouth advance diet as tolerated. Pain management. Also we'll check urinalysis. We'll order an ultrasound of the liver and retroperitoneal. Call GI consult Labs and medication were reviewed.. Continue same treatment. Continue with symptomatic treatment. Resume home medication. Monitor lytes and vitals. DVT and GI prophylaxis. Further recommendations of the clinical course of the patient DVT prophylaxis: Subcutaneous heparin GI Prophylaxis: Pepcid PT/OT: Pending Prognosis is guarded
[2018-04-09] MEDS: PANTOPRAZOLE 40 MG/10 ML VIAL IV SCH (09:28)
--- NOTE | 2018-04-09 18:32 | P.PN ---
Subjective Progress Note Date: 04/09/18 This is a pleasant 77 years old female with past medical history of atrial fibrillation, COPD, TIA, GERD, hyperlipidemia, essential tremor, number back pain, as well as difficulty with falls, restless leg syndrome. He was a patient of Dr. De La Garza. And she presents because of abdominal pain of one- day duration, severe about 10/10 in severity. Burning and pressure sensation radiating to the hole surrounding area with nonspecificity. Associated with nausea vomiting, containing bowel with no blood. Patient has 3 bowel movements yesterday and she passes that because as well as usual. On admission his CBC and BMP were unremarkable however his amylase was elevated at 1836 [place] [address]. Also there is some hematuria in the urine. Patient also states she has recurrent falls and she fell 2 days ago and there is a bruise around her right eye. Patient denies headache or weakness. No numbness or abnormal sensation. 04/07/2018 patient's was sitting in bed in mild distress because she wanted her copy. Her pain in the epigastrium is much improved however she still have significant tenderness on examination. She'll continue on IV fluids. Patient denies chest pain or dyspnea. Patient restarted on her Eliquis. Liver ultrasound : Which was unremarkable . GI evaluation is greatly appreciated. Patient will benefit from endoscopic ultrasound which can be done as an outpatient for evaluation for possible malignancy as she has dilated pancreatic duct. Diet is advanced, currently on liquid diet , liver enzymes within normal limits today either. 04/08/2018 Patient abdominal pain, nausea vomiting are improving. Patient passing gases. Decrease IV fluids. Lipase and amylase came back to normal. He BC and BMP unremarkable. Patient was instructed about her problems including dilated pancreatic duct with a recommendation of the gastroenterologists for endoscopic ultrasound to exclude diseases including but not limited to cancer. Patient verbalized understanding and acceptance and she said she will follow up with the GI as instructed. 04/09/2018 Patient says her abdominal pain is improving. She says she is tolerating clear liquid diet. She c/o no nausea or vomiting, no diarrhea, no constipation, no chest pain, no racing heart, no SOB, no cough, Objective - Vital Signs Vital signs: Vital Signs Temp 98.5 F 04/09/18 13:00 Pulse 72 04/09/18 17:07 Resp 16 12/17/18 13:00 BP 129/60 04/09/18 13:00 Pulse Ox 97 04/09/18 13:00 Intake & Output 04/08/18 04/09/18 04/09/18 18:59 06:59 18:59 Intake Total 600 400 Balance 600 400 Weight 65.771 kg Intake: Intake, IV Titration 400 Amount Sodium Chloride 0.9% 1, 400 000 ml @ 50 mls/hr IV . Q20H [facility] Rx#:[id number] Oral 600 Other: Voiding Method Bedside Commode Bedside Commode Bedside Commode # Voids 4 1 - Constitutional General appearance: Present: cooperative, no acute distress - EENT Eyes: Present: PERRLA Ears: bilateral: normal - Neck Neck: Absent: lymphadenopathy, thyromegaly - Respiratory Respiratory: bilateral: CTA - Cardiovascular Heart sounds: normal: S1, S2 - Gastrointestinal General gastrointestinal: Present: normal bowel sounds. Absent: organomegaly, tenderness - Neurologic Neurologic: Present: CNII-XII intact, focal deficits - Labs CBC & Chem 7: 04/09/18 08:05 04/09/18 08:05 Labs: Abnormal Lab Results - Last 24 Hours (Table) 04/09/18 04/09/18 Range/Units 08:05 08:05 Hgb 10.9 L (11.4-16.0) gm/dL Potassium 3.1 L (3.5-5.1) mmol/L Chloride 110 H (98-107) mmol/L BUN 3 L (7-17) mg/dL AST 10 L (14-36) U/L Total Protein 5.3 L (6.3-8.2) g/dL Albumin 2.9 L (3.5-5.0) g/dL - Imaging and Cardiology CT scan - abdomen: image reviewed Assessment and Plan Assessment: Acute pancreatitis Duodenal diverticulitis Dilated pancreatic duct, patient will need endoscopic ultrasound for evaluation possible malignancy History of Chronic atrial fibrillation History of GERD History of Hyperlipidemia History of Essential tremor History of Lumbar back pain, chronic History Difficulty in walking with falls History of Restless leg syndrome Plan: - Continue gentle hydration - Advance the diet - If the patient tolerated advancement in diet, pt will be discharged - Needs to f/u with GI as op for endoscopic ultrasound - Continue rest of the meedications - DVT and GI ppx - Labs in the morning - Will f/u
--- NOTE | 2018-04-09 22:15 | P.PN ---
Subjective Progress Note Date: 04/09/18 Principal diagnosis: Acute pancreatitis, abdominal pain Patient reports that she is feeling better. She is tolerating her diet. No nausea or vomiting reported. Objective - Vital Signs Vital signs: Vital Signs Temp 98.5 F 04/09/18 13:00 Pulse 76 04/09/18 21:22 Resp 16 04/09/18 13:00 BP 129/60 04/09/18 13:00 Pulse Ox 97 04/09/18 13:00 Intake & Output 04/09/18 04/09/18 04/10/18 06:59 18:59 06:59 Intake Total 400 Balance 400 Weight 65.771 kg Intake: Intake, IV Titration 400 Amount Sodium Chloride 0.9% 1, 400 000 ml @ 50 mls/hr IV . Q20H [facility] Rx#:[id number] Other: Voiding Method Bedside Commode Bedside Commode # Voids 1 - Exam On physical examination, patient appears comfortable in no apparent distress. HEAD: Normocephalic, atraumatic. EYES: No scleral icterus. No conjunctival injection. MOUTH: No lesions, tongue midline. NECK: Trachea midline, no gross abnormalities. CHEST: Clear to auscultation with no wheezing or rhonchi appreciated. HEART: Regular rate and rhythm. ABDOMEN: Soft. Bowel sounds are positive. No organomegaly. No guarding or rigidity. EXTREMITIES: No pedal edema. SKIN: No rashes, no jaundice. NEUROLOGIC: Alert and oriented x3. No focal deficits. - Labs CBC & Chem 7: 04/09/18 08:05 04/09/18 08:05 Labs: Abnormal Lab Results - Last 24 Hours (Table) 04/09/18 04/09/18 Range/Units 08:05 08:05 Hgb 10.9 L (11.4-16.0) gm/dL Potassium 3.1 L (3.5-5.1) mmol/L Chloride 110 H (98-107) mmol/L BUN 3 L (7-17) mg/dL AST 10 L (14-36) U/L Total Protein 5.3 L (6.3-8.2) g/dL Albumin 2.9 L (3.5-5.0) g/dL Assessment and Plan (1) Pancreatitis Narrative/Plan: Pancreatitis of unknown etiology with no elevation in liver enzymes or evidence of gallstones on imaging to suggest biliary etiology or recent alcohol use. The patient is on Lasix at home which has been associated with pancreatitis however unclear if this is etiology of her presentation. Even the patient's age and findings of mild pancreatic duct dilation on imaging she will need further evaluation to rule out underlying malignancy as an outpatient with endoscopic ultrasound. Current Visit: Yes Status: Acute Code(s): K85.90 - ACUTE PANCREATITIS WITHOUT NECROSIS OR INFECTION, UNSP SNOMED Code(s): 87412350 (2) Abdominal pain Narrative/Plan: Secondary to above Current Visit: Yes Status: Acute Code(s): R10.9 - UNSPECIFIED ABDOMINAL PAIN SNOMED Code(s): 64903529 Plan: Supportive care Diet as tolerated Monitor liver enzymes Imaging reviewed Pain control Continue fluid hydration Follow-up with gastroenterology for scheduling of endoscopic ultrasound Okay for discharge from gastroenterology Thank you for allowing us to participate in the care of this patient we will sign off please call us back if any questions or concerns arise
[2018-04-10] MEDS: ALBUTEROL NEBULIZED 2.5 MG/3 ML INHALATION SCH ×5 (00:40→15:25)
[2018-04-10] MEDS: SODIUM CHLORIDE 0.9% 1,000 ML IV SCH (04:37)
[2018-04-10] MEDS: IPRATROPIUM 0.5 MG/2.5 ML NEBU INHALATION SCH ×3 (08:10→15:27)
[2018-04-10 08:35] LABS: Basophils % (A) 0 %; Eosinophils # (A) 0.4 k/uL (0-0.7); Eosinophils % (A) 6 %; HCT 31.4 % (34.0-46.0); HGB 10.4 gm/dL (11.4-16.0); Lymphocytes # (A) 1.2 k/uL (1.0-4.8); Lymphocytes % (A) 19 %; Mean Platelet Volume 6.8; Monocytes # (A) 0.4 k/uL (0-1.0); Monocytes % (A) 6 %; Neutrophils # (A) 4.3 k/uL (1.3-7.7); Neutrophils % (A) 67 %; Platelet Count 252 k/uL (150-450); RBC 3.57 m/uL (3.80-5.40); RDW 13.6 % (11.5-15.5); WBC 6.4 k/uL (3.8-10.6)
[2018-04-10 08:50] LABS: Anion Gap 5 mmol/L; Blood Urea Nitrogen 3 mg/dL (7-17); Calcium 8.5 mg/dL (8.4-10.2); Carbon Dioxide 28 mmol/L (22-30); Chloride 108 mmol/L (98-107); Glucose 94 mg/dL (74-99); Lipase 216 U/L (23-300); Potassium 3.4 mmol/L (3.5-5.1); Sodium 141 mmol/L (137-145)
[2018-04-10] MEDS: APIXABAN 5 MG TAB PO SCH (10:05)
[2018-04-10] MEDS: MONTELUKAST 10 MG TAB PO SCH (10:05)
[2018-04-10] MEDS: FLUoxetine HCL 20 MG CAP PO SCH (10:05)
[2018-04-10] MEDS: METOPROLOL TARTRATE 50 MG TAB PO SCH (10:06)
[2018-04-10] MEDS: FUROSEMIDE 20 MG TAB PO SCH (10:06)
[2018-04-10] MEDS: PANTOPRAZOLE 40 MG/10 ML VIAL IV SCH (10:06)
[2018-04-10] MEDS ORDERED: POTASSIUM CHLORIDE ER 20 MEQ TAB.ER PO STA (11:03)
[2018-04-10 11:51] VITALS: BP 108/54; RESP 17; TEMP 97.9
--- NOTE | 2018-04-10 14:35 | P.DS ---
Providers Date of admission: 04/06/18 06:53 Expected date of discharge: 04/10/18 Attending physician: Rhys Hernandez Primary care physician: [facility] Course: She is a pleasant 77-year-old female past medical history of A. fib COPD TIA hyperlipidemia presents to the ER with abdominal pain. Her lipase was very elevated. Computed tomography scan shows findings of esophagitis and duodenal diverticulum. She was kept nothing by mouth, started on IV fluids. GI saw the patient who suggested other measures and the patient needs to follow up with GI as an outpatient for endoscopic ultrasound as the computed tomography scan also showed dilated pancreatic duct. The patient slowly started to improve and pain started to improve as well. She started to tolerate advancement in diet. The patient was cleared by GI standpoint to be discharged and follow as an outpatient. The patient was discharged on 04/10/2018 Patient Condition at Discharge: Good Plan - Discharge Summary Discharge Rx Participant: No New Discharge Prescriptions: New Acetaminophen Tab [Tylenol] 650 mg PO Q6HR PRN tab PRN Reason: Fever And/ Or Pain Apixaban [Eliquis] 5 mg PO BID tab Continue FLUoxetine HCL [PROzac] 20 mg PO DAILY Omeprazole 40 mg PO DAILY Montelukast Sodium [Singulair] 10 mg PO DAILY Tiotropium 18 Mcg/Puff [Spiriva] 1 puff INHALATION RT-DAILY Albuterol Sulfate [Proair Hfa] 2 puff INHALATION RT-Q4H Furosemide [Lasix] 20 mg PO DAILY Metoprolol Tartrate [Lopressor] 50 mg PO BID #60 tab ALPRAZolam [Xanax] 0.5 mg PO TID PRN #10 tab PRN Reason: Anxiety HYDROcodone/APAP 5-325MG [[place] 5-325] 1 tab PO BID PRN #20 tab PRN Reason: Pain Discontinued Apixaban [Eliquis] 5 mg PO BID #60 tab Discharge Medication List FLUoxetine HCL [PROzac] 20 mg PO DAILY 12/19/14 [History] Montelukast Sodium [Singulair] 10 mg PO DAILY 08/24/17 [History] Omeprazole 40 mg PO DAILY 08/24/17 [History] Albuterol Sulfate [Proair Hfa] 2 puff INHALATION RT-Q4H 03/06/18 [History] Furosemide [Lasix] 20 mg PO DAILY 03/06/18 [History] Tiotropium 18 Mcg/Puff [Spiriva] 1 puff INHALATION RT-DAILY 03/06/18 [History] ALPRAZolam [Xanax] 0.5 mg PO TID PRN #10 tab 03/08/18 [Rx] HYDROcodone/APAP 5-325MG [[place] 5-325] 1 tab PO BID PRN #20 tab 03/08/18 [Rx] Metoprolol Tartrate [Lopressor] 50 mg PO BID #60 tab 03/08/18 [Rx] Acetaminophen Tab [Tylenol] 650 mg PO Q6HR PRN tab 04/10/18 [Rx] Apixaban [Eliquis] 5 mg PO BID tab 04/10/18 [Rx] Follow up Appointment(s)/Referral(s): Pablo De La Garza DO [Primary Care Provider] - 04/13/18 1:20 pm Lucas Narayanan MD [STAFF PHYSICIAN] - 05/01/18 8:30 am Patient Instructions/Handouts: Pancreatitis (DC), Acute Abdominal Pain (DC) Discharge Disposition: HOME SELF-CARE
[2018-04-10 15:35] VITALS: PULSE 86
[2018-04-11] MEDS ORDERED: PANTOPRAZOLE 40 MG TABLET PO SCH (07:30)
== END 2018-04-10 17:00 | disposition home or self-care (01) | DRG 439 ==
LOC: EC 04:09 → 3NMEDONC 06:53
PROVIDERS: ADMIT Hospitalist; ATTEND Hospitalist
DX: K85.90 Acute pancreatitis without necrosis or infection, unspecified (principal); K57.12 Diverticulitis of small intestine without perforation or abscess without bleeding; K86.89 Other specified diseases of pancreas; J44.9 Chronic obstructive pulmonary disease, unspecified; I48.2 Chronic atrial fibrillation; R13.10 Dysphagia, unspecified; R31.9 Hematuria, unspecified; K21.0 Gastro-esophageal reflux disease with esophagitis; E78.5 Hyperlipidemia, unspecified; F32.9 Major depressive disorder, single episode, unspecified; F41.9 Anxiety disorder, unspecified; G25.0 Essential tremor; G25.81 Restless legs syndrome; J30.2 Other seasonal allergic rhinitis; R29.6 Repeated falls; G89.29 Other chronic pain; K44.9 Diaphragmatic hernia without obstruction or gangrene; S00.11XA Contusion of right eyelid and periocular area, initial encounter; M54.5 Low back pain; I83.93 Asymptomatic varicose veins of bilateral lower extremities; Z79.01 Long term (current) use of anticoagulants; Z79.899 Other long term (current) drug therapy; Z86.73 Personal history of transient ischemic attack (TIA), and cerebral infarction without residual deficits; Z90.710 Acquired absence of both cervix and uterus; Z87.891 Personal history of nicotine dependence; Z87.01 Personal history of pneumonia (recurrent); Z88.2 Allergy status to sulfonamides; Z88.8 Allergy status to other drugs, medicaments and biological substances; Z88.6 Allergy status to analgesic agent; Z91.041 Radiographic dye allergy status; Z98.42 Cataract extraction status, left eye; Z98.41 Cataract extraction status, right eye; Z96.1 Presence of intraocular lens; Z86.010 Personal history of colon polyps; Z80.8 Family history of malignant neoplasm of other organs or systems; Z80.0 Family history of malignant neoplasm of digestive organs; Z82.0 Family history of epilepsy and other diseases of the nervous system
CPT/HCPCS: 36415; 74177; 76705; 80048; 80053; 80076; 81001; 82150; 83605; 83690; 85025; 94640; 94760; 96361; 96374; 96375; 99285

== ENCOUNTER 2018-05-29 13:04 | Emergency (ER) | payer MEDICARE ==
[2018-05-29 13:13] VITALS: RESP 18
[2018-05-29] MEDS ORDERED: MORPHINE SULFATE 4 MG/ML SYRINGE IVP STA ×2 (13:41→16:06)
--- NOTE | 2018-05-29 13:53 | ED ---
General Adult HPI - General Source: patient, EMS, RN notes reviewed, old records reviewed Mode of arrival: EMS Limitations: no limitations <Faviola Ann - Last Filed: 05/29/18 16:10> <Cheng Riggs - Last Filed: 05/30/18 11:26> - General Chief complaint: Fall Stated complaint: Fall Time Seen by Provider: 05/29/18 13:09 - History of Present Illness Initial comments: Patient is a 77-year-old female who presents recurrent today with complaints of fall. Patient states she was walking in her living room. She reports that she tripped, and fell on an outstretched arm and her left arm and wrist is swollen and deformed. Patient states that she did not hit her head, and she complains of chronic neck pain. Patient states that she was on the ground for approximately an hour unable to get up on her own. She states she'll for help and a mechanical engineering lecturer came in from outside to call 911 and help her. She ran to the emergency Department via EMS. Was given fentanyl and Zofran on her right here. Patient states that she has no other complaints including chest pain, shortness of breath, abdominal pain. She denies any recent diarrhea or reasons for dehydration. (Faviola Ann) - Related Data Home Medications Medication Instructions Recorded Confirmed FLUoxetine HCL [PROzac] 20 mg PO DAILY 12/19/14 04/06/18 Montelukast Sodium [Singulair] 10 mg PO DAILY 08/24/17 04/06/18 Omeprazole 40 mg PO DAILY 08/24/17 04/06/18 Albuterol Sulfate [Proair Hfa] 2 puff INHALATION RT-Q4H 03/06/18 04/06/18 Furosemide [Lasix] 20 mg PO DAILY 03/06/18 04/06/18 Tiotropium 18 Mcg/Puff [Spiriva] 1 puff INHALATION RT-DAILY 03/06/18 04/06/18 Previous Rx's Medication Instructions Recorded ALPRAZolam [Xanax] 0.5 mg PO TID PRN #10 tab 03/08/18 HYDROcodone/APAP 5-325MG [[place] 1 tab PO BID PRN #20 tab 03/08/18 5-325] Metoprolol Tartrate [Lopressor] 50 mg PO BID #60 tab 03/08/18 Acetaminophen Tab [Tylenol] 650 mg PO Q6HR PRN tab 04/10/18 Apixaban [Eliquis] 5 mg PO BID tab 04/10/18 HYDROcodone/APAP 5-325MG [[place] 1 tab PO Q6HR PRN #15 tab 05/29/18 5-325] Allergies Allergy/AdvReac Type Severity Reaction Status Date / Time ibuprofen Allergy Unknown Verified 05/29/18 13:13 Iodinated Contrast- Oral and Allergy Unknown Verified 05/29/18 13:13 IV Dye iodine Allergy Rash/Hives Verified 05/29/18 13:13 lorazepam [From Ativan] Allergy Hallucinati Verified 05/29/18 13:13 ons Sulfa (Sulfonamide Allergy Rash/Hives Verified 05/29/18 13:13 Antibiotics) topiramate [From Topamax] Allergy Unknown Verified 05/29/18 13:13 zolpidem tartrate Allergy Hallucinati Verified 05/29/18 13:13 [From Ambien] ons prednisone AdvReac DIZINESS Verified 05/29/18 13:13 Review of Systems ROS Other: All systems not noted in ROS Statement are negative. <Faviola Ann - Last Filed: 05/29/18 16:10> ROS Other: All systems not noted in ROS Statement are negative. <Cheng Riggs - Last Filed: 05/30/18 11:26> ROS Statement: Those systems with pertinent positive or pertinent negative responses have been documented in the HPI. Past Medical History Past Medical History: Atrial Fibrillation, COPD, CVA/TIA, Eye Disorder, GERD/ Reflux, Hyperlipidemia, Pneumonia Additional Past Medical History / Comment(s): Chronic atrial fibrillation per PMH but pt has no recollection of this, bronchiectasis, essential tremors, previous TIA, chronic lumbar back pain, past 6 months R shoulder/cervical pain, balance difficulty with falls, occasional low urinary output and uses lasix prn for this, bilateral varicose veins, dysphagia-able to take pills one at a time with water, small hiatal hernia, restless leg syndrome, seasonal ALLERGIES, History of Any Multi-Drug Resistant Organisms: None Reported Past Surgical History: Hysterectomy Additional Past Surgical History / Comment(s): 11/27/15 EGD with bx, bilateral cataracts removed with lens implants, colonoscopy with 1 benign polypectomy. Past Anesthesia/Blood Transfusion Reactions: No Reported Reaction Past Psychological History: Anxiety, Depression Smoking Status: Former smoker Past Alcohol Use History: None Reported Past Drug Use History: None Reported - Past Family History Father Family Medical History: Cancer Additional Family Medical History / Comment(s): Pt thinks father might have from stomach cancer. She was 2 yrs old when he . Sister(s) Family Medical History: Cancer Additional Family Medical History / Comment(s): Half sister with brain cancer. Mother Family Medical History: Dementia Additional Family Medical History / Comment(s): Mother had gallstones and a partial thyroidectomy for noncancerous reasons. <Faviola Ann - Last Filed: 05/29/18 16:10> General Exam Limitations: no limitations General appearance: alert, in no apparent distress Head exam: Present: atraumatic, normocephalic, normal inspection Eye exam: Present: normal appearance, PERRL, EOMI. Absent: scleral icterus, conjunctival injection, periorbital swelling ENT exam: Present: normal exam, mucous membranes moist Neck exam: Present: normal inspection, other (And is currently in c-collar.). Absent: tenderness, meningismus, lymphadenopathy Respiratory exam: Present: normal lung sounds bilaterally. Absent: respiratory distress, wheezes, rales, rhonchi, stridor Cardiovascular Exam: Present: regular rate, normal rhythm, normal heart sounds. Absent: systolic murmur, diastolic murmur, rubs, gallop, clicks GI/Abdominal exam: Present: soft, normal bowel sounds. Absent: distended, tenderness, guarding, rebound, rigid Extremities exam: Present: full ROM, normal capillary refill. Absent: normal inspection, tenderness, pedal edema, joint swelling, calf tenderness Left Shoulder Exam: Present: normal inspection, full ROM Upper Arm exam: Present: full ROM, tenderness. Absent: normal inspection Elbow exam: Present: normal inspection, full ROM Forearm Wrist exam: Present: normal inspection, full ROM Hand Wrist exam: Present: normal inspection, full ROM Neuro motor exam: Present: wrist extension intact, thumb opposition intact, thumb IP flexion intact, thumb adduction intact, fingers 2-5 abduction intact Back exam: Present: normal inspection Neurological exam: Present: alert, oriented X3, CN II-XII intact Psychiatric exam: Present: normal affect, normal mood Skin exam: Present: warm, dry, intact, normal color. Absent: rash <Faviola Ann - Last Filed: 05/29/18 16:10> <Cheng Riggs - Last Filed: 05/30/18 11:26> - General Exam Comments Initial Comments: This is a 77-year-old female. Alert and oriented 3. (Faviola Ann) Vital Signs 05/29/18 05/29/18 05/29/18 13:06 14:24 17:30 Temperature 97.0 F L 98.9 F Pulse Rate 59 L 67 73 Respiratory 18 18 Rate Blood Pressure 174/74 121/59 O2 Sat by Pulse 97 98 95 Oximetry Procedures - Orthopedic Splinting/Casting Injury #1 Side: left Upper Extremity Injury Location: shoulder Upper Extremity Immobilizer: sling/shoulder immobilizer <Faviola Ann - Last Filed: 05/29/18 16:10> Medical Decision Making - Radiology Data Radiology results: report reviewed <Faviola Ann - Last Filed: 05/29/18 16:10> <Cheng Riggs - Last Filed: 05/30/18 11:26> - Medical Decision Making 37-year-old female presents emergency room today with left shoulder and arm pain after she fell. CT of the brain and C-spine is negative for any acute process. CT of the shoulder shows evidence of acute humeral fracture. Patient was met by myself and Dr. Keller. We did discuss case with him often PA. Recommended inpatient a sling pain controlled following up in the office. No need for surgical reduction at this time. Patient stated with this discharge plan. I did discuss Patient will be discharged with a sling and advised to have pain control. Patient will be picked up by daughter. All questions answered return parameters were discussed. (Faviola Ann) Patient evaluated status post fall. Patient has displaced proximal left humeral fracture with extension into the greater trochanter. Did evaluate the patient, she is resting comfortably, no other complaints. Discussed case with the physician occupational therapist assistants covering for [facility]. Recommend sling and close outpatient follow-up. Patient has family at home and is right-handed. (Cheng Riggs) - Radiology Data No evidence of acute fracture or subluxation of the cervical spine. He took the brain shows age-related atrophy and chronic small vessel ischemic change without acute intracranial process at this time. CT of the shoulder shows a displaced proximal left humeral diaphyseal fracture with displacement of 9 mm. Additional fracture extending the humeral neck as well as the greater tuberosity. Mild comminution is noted. Cranial margination of the distal fracture component is an angulation is noted. There is no additional fractures identified within field of view. Glenoid is intact. Before meals is intact. X-ray of the forearm shows no acute fracture dislocation. (Faviola Ann) Disposition Is patient prescribed a controlled substance at d/c from ED?: Yes If prescribed controlled substance>3 days was MAPS reviewed?: Prescribed <3 Days If opioid is for acute pain is fill amount 7 days or less?: Yes If Rx opioid, was Start Talking consent form obtained?: Yes Time of Disposition: 16:11 <Faviola Ann - Last Filed: 05/29/18 16:10> <Cheng Riggs - Last Filed: 05/30/18 11:26> Clinical Impression: Humeral fracture Disposition: HOME SELF-CARE Condition: Good Instructions (If sedation given, give patient instructions): Fall Prevention for Older Adults (ED), Proximal Humerus Fracture (ED) Additional Instructions: Patient advised to follow-up with primary care physician. Patient advised to return to emergency department if any alarming signs or symptoms occur. Need to follow-up with business management specialist tomorrow. Patient should sleep in a chair. Apply cool compresses over the area. Patient needs to remain in the sling at all times. Prescriptions: HYDROcodone/APAP 5-325MG [[place] 5-325] 1 tab PO Q6HR PRN #15 tab PRN Reason: Pain Referrals: Pablo De La Garza DO [Primary Care Provider] - 1-2 days
--- NOTE | 2018-05-29 14:31 | CT ---
EXAMINATION TYPE: CT brain javan rodrigez DATE OF EXAM: 05/29/2018 COMPARISON: None HISTORY: Fall today with Left arm and neck pain CT DLP: 1272.[address] of the brain was performed. The ventricles, basal cisterns and sulci overlying the cerebral convexities demonstrate mild enlargem ent. There is no evidence for intracranial hemorrhage or sulcal effacement. There is decreased attenuatio n about the periventricular white matter and deep white matter of both cerebral hemispheres, compatib le with chronic small vessel ischemia. No mass effects are seen. If symptoms persist consider MRI. Osseous calvarium is intact. IMPRESSION: 1. Age related atrophic and chronic small vessel ischemic change without acute intracranial process seen at this time. CT Cervical Spine: Unenhanced CT of the cervical spine was performed with bone and soft tissue window settings submitted . Coronal and sagittal reconstruction is obtained. There is normal alignment and prevertebral soft tissues. No evidence for acute cervical fracture . Scattered degenerative disc disease and spondylosis. Biapical scarring. IMPRESSION: 1. No evidence for acute fracture or subluxation of the cervical spine.
--- NOTE | 2018-05-29 14:33 | XR ---
EXAMINATION TYPE: XR forearm LT DATE OF EXAM: 05/29/2018 CLINICAL HISTORY: pain TECHNIQUE: Frontal and lateral images of the left forearm are obtained. COMPARISON: None. FINDINGS: There is no acute fracture/dislocation evident. The joint spaces appear within normal limi ts. Overlying skin fold noted. The overlying soft tissue appears unremarkable. IMPRESSION: There is no acute fracture or dislocation. ICD 10 NO FRACTURE, INITIAL EVALUATION
--- NOTE | 2018-05-29 14:36 | CT ---
EXAMINATION TYPE: CT shoulder LT wo con DATE OF EXAM: 05/29/2018 COMPARISON: None HISTORY: Fall today with Left arm and neck pain CT DLP: 224.[address] of the left shoulder with reconstruction imaging. TECHNIQUE: Unenhanced CT of the left shoulder was performed with bone and soft tissue window settings submitted in the axial coronal and sagittal planes. At a separate workstation [id number] TR imaging was ob tained. FINDINGS: There is a displaced proximal left humeral diaphyseal fracture noted with displacement of 9 mm. There is additional fracture extending into the humeral neck as well as the greater tuberosity. Mild comminution is noted. Cranial migration of the distal fracture component and angulation noted. N o additional fractures identified within the [id number]. Glenoid is intact. AC joint is intact. IMPRESSION: 1. Left humeral fractures as noted.
[2018-05-29 17:32] VITALS: BP 121/59; PULSE 73; TEMP 98.9
== END 2018-05-29 17:30 | disposition home or self-care (01) ==
LOC: EC 13:04
DX: S42.292A Other displaced fracture of upper end of left humerus, initial encounter for closed fracture (principal); I67.82 Cerebral ischemia; G31.9 Degenerative disease of nervous system, unspecified; G89.29 Other chronic pain; M54.2 Cervicalgia; J44.9 Chronic obstructive pulmonary disease, unspecified; K21.9 Gastro-esophageal reflux disease without esophagitis; F32.9 Major depressive disorder, single episode, unspecified; F41.9 Anxiety disorder, unspecified; R29.6 Repeated falls; Z87.891 Personal history of nicotine dependence; Z88.2 Allergy status to sulfonamides; Z88.6 Allergy status to analgesic agent; Z88.8 Allergy status to other drugs, medicaments and biological substances; Z91.041 Radiographic dye allergy status; Z91.048 Other nonmedicinal substance allergy status; Z79.899 Other long term (current) drug therapy; W01.0XXA Fall on same level from slipping, tripping and stumbling without subsequent striking against object, initial encounter; Y93.01 Activity, walking, marching and hiking; Y92.008 Other place in unspecified non-institutional (private) residence as the place of occurrence of the external cause
CPT/HCPCS: 73090; 72125; 70450; 73200; 99285; 96374; 96376; J2270

== ENCOUNTER → 2018-08-30 | Outpatient (CLI) | payer MEDICARE ==
--- NOTE | 2018-08-30 14:42 | XR ---
EXAMINATION TYPE: XR shoulder limited LT DATE OF EXAM: 08/30/2018 COMPARISON: 05/29/2018 HISTORY: Follow-up fracture TECHNIQUE: Three views are submitted. FINDINGS: There is persistent displaced fracture involving the proximal left humerus. Diffuse osteopenia noted. There is callus formation but there remains persistent displacement measuring approximately 9 mm. Pe rsistent nonunion fracture noted. Chronic rib deformities suggested. IMPRESSION: 1. Persistent displaced fracture with callus formation but persistent fracture line compatible with n onunion.
== END | disposition home or self-care (01) ==
LOC: RADXRYALE 14:20
PROVIDERS: ATTEND Physician Assistant Medical
DX: S42.202D Unspecified fracture of upper end of left humerus, subsequent encounter for fracture with routine healing (principal); M25.712 Osteophyte, left shoulder

== ENCOUNTER 2018-10-24 10:55 | Inpatient (IN) | payer MEDICARE ==
[2018-10-24] MEDS ORDERED: SODIUM CHLORIDE 0.9% 500 ML 500 ML IV STA (11:17)
--- NOTE | 2018-10-24 11:21 | ED ---
General Adult HPI - General Source: patient, RN notes reviewed, old records reviewed Mode of arrival: wheelchair Limitations: no limitations <Brown Arnold - Last Filed: 10/24/18 14:25> <Cheng Aguilar - Last Filed: 10/24/18 14:30> - General Chief complaint: Upper Respiratory Infection Stated complaint: fever, chills, nausea Time Seen by Provider: 10/24/18 11:06 - History of Present Illness Initial comments: 78-year-old female patient past medical history of a fibrillation, COPD on home oxygen, TIA, hypertension, hyperlipidemia status post cataract surgery, this ED for multiple complaints. Patient reports that she has sensation of generalized weakness, patient reports worsening vision, reports approximately 3 days of cough and congestion. Patient states that breathing status is at baseline, denies any chest pain shortness of breath. Patient denies abdominal pain, nausea vomiting or diarrhea. Patient denies any headache, facial droop, vocal muscular weakness. Denies other complaints. Systemic: Pt denies fever/chills, rash. Pt denies weakness, night sweats, weight loss. Neuro: Pt denies headache, syncope or pre-syncope. HEENT: Pt denies ocular discharge or irritation, otalgia, rhinorrhea, ph aryngitis or notable lymphadenopathy. Cardiopulmonary: Pt denies chest pain, SOB, heart palpitations, dyspnea on exertion. Abdominal/GI: Pt denies abdominal pain, n/v/d. : Pt denies dysuria, burning w/ urination, frequency/urgency. Denies new onset urinary or bowel incontinence. MSK: Pt denies myalgia, loss of strength or function in extremities. Neuro: Pt denies new onset weakness, paresthesias. (Brown Arnold) - Related Data Home Medications Medication Instructions Recorded Confirmed FLUoxetine HCL [PROzac] 20 mg PO DAILY 12/19/14 10/24/18 Montelukast Sodium [Singulair] 10 mg PO DAILY 08/24/17 10/24/18 Omeprazole 40 mg PO DAILY 08/24/17 10/24/18 Albuterol Sulfate [Proair Hfa] 2 puff INHALATION RT-Q4H 03/06/18 10/24/18 Furosemide [Lasix] 20 mg PO DAILY 03/06/18 10/24/18 Albuterol Nebulized [Ventolin 2.5 mg INHALATION RT-QID 10/24/18 10/24/18 Nebulized] Aspirin 81 mg PO DAILY 10/24/18 10/24/18 HYDROcodone/APAP 5-325MG [[place] 1 tab PO TID PRN 10/24/18 10/24/18 5-325] Ipratropium Nebulized [Atrovent 0.5 mg INHALATION RT-QID 10/24/18 10/24/18 Nebulized 0.2 MG/ML] Propranolol [Inderal] 10 mg PO TID 10/24/18 10/24/18 Previous Rx's Medication Instructions Recorded ALPRAZolam [Xanax] 0.5 mg PO TID PRN #10 tab 03/08/18 Allergies Allergy/AdvReac Type Severity Reaction Status Date / Time ibuprofen Allergy Unknown Verified 10/24/18 11:26 Iodinated Contrast- Oral and Allergy Unknown Verified 10/24/18 11:26 IV Dye iodine Allergy Rash/Hives Verified 10/24/18 11:26 lorazepam [From Ativan] Allergy Hallucinati Verified 10/24/18 11:26 ons Sulfa (Sulfonamide Allergy Rash/Hives Verified 10/24/18 11:26 Antibiotics) topiramate [From Topamax] Allergy Unknown Verified 10/24/18 11:26 prednisone AdvReac DIZINESS Verified 10/24/18 11:26 zolpidem tartrate AdvReac Hallucinati Verified 10/24/18 11:26 [From Ambien] ons Review of Systems ROS Other: All systems not noted in ROS Statement are negative. <Brown Arnold - Last Filed: 10/24/18 14:25> ROS Other: All systems not noted in ROS Statement are negative. <Cheng Aguilar - Last Filed: 10/24/18 14:30> ROS Statement: Those systems with pertinent positive or pertinent negative responses have been documented in the HPI. Past Medical History Past Medical History: Atrial Fibrillation, COPD, CVA/TIA, Eye Disorder, GERD/Reflux, Hyperlipidemia, Pneumonia Additional Past Medical History / Comment(s): Chronic atrial fibrillation per PMH but pt has no recollection of this, bronchiectasis, essential tremors, previous TIA, chronic lumbar back pain, past 6 months R shoulder/cervical pain, balance difficulty with falls, occasional low urinary output and uses lasix prn for this, bilateral varicose veins, dysphagia-able to take pills one at a time with water, small hiatal hernia, restless leg syndrome, seasonal ALLERGIES, History of Any Multi-Drug Resistant Organisms: None Reported Past Surgical History: Hysterectomy Additional Past Surgical History / Comment(s): 11/27/15 EGD with bx, bilateral cataracts removed with lens implants, colonoscopy with 1 benign polypectomy. Past Anesthesia/Blood Transfusion Reactions: No Reported Reaction Past Psychological History: Anxiety, Depression Smoking Status: Former smoker Past Alcohol Use History: None Reported Past Drug Use History: None Reported - Past Family History Father Family Medical History: Cancer Additional Family Medical History / Comment(s): Pt thinks father might have from stomach cancer. She was 2 yrs old when he . Sister(s) Family Medical History: Cancer Additional Family Medical History / Comment(s): Half sister with brain cancer. Mother Family Medical History: Dementia Additional Family Medical History / Comment(s): Mother had gallstones and a partial thyroidectomy for noncancerous reasons. <Brown Arnold - Last Filed: 10/24/18 14:25> General Exam Limitations: no limitations <Brown Arnold - Last Filed: 10/24/18 14:25> - General Exam Comments Initial Comments: Constitutional: NAD, AOX3, Pt has pleasant affect. HEENT: NC/AT, trachea midline, neck supple, no lymphadenopathy. Posterior pharynx non erythematous, without exudates. External ears appear normal, without discharge. Mucous membranes moist. Eyes PERRLA, EOM intact. There is no scleral icterus. No pallor noted. Cardiopulmonary: RRR, no murmurs, rubs or gallops, no JVD noted. Lungs CTAB in anterior and posterior palencia. No peripheral edema. Abdominal exam: Abdomen soft and non-distended. Abdomen non-tender to palpation in all 4 quadrants. Bowel sounds active in LLQ. No hepatosplenomegaly. No ecchymosis Neuro: CN II-XII intact. No nuchal rigidity. No raccon eyes, no corbin sign, no hemotympanum. No cervical spinal tenderness. NIH 0. MSK: No posterior calf tenderness bilaterally, homans sign negative bilaterally. Posterior tibialis and radial pulse +2 bilaterally. Sensation intact in upper and lower extremities. Full active ROM in upper and lower extremities, 5/5 stregnth. (Brown Arnold) Course <Cheng Aguilar - Last Filed: 10/24/18 14:30> Vital Signs 10/24/18 11:03 Temperature 97.8 F Pulse Rate 71 Respiratory 20 Rate Blood Pressure 127/66 O2 Sat by Pulse 94 L Oximetry - Reevaluation(s) Reevaluation #1: 10/24/18 14:29 PA supervision: I proceeded [id number] evaluation the patient did discuss findings with the patient. Patient will be admitted I did discuss case with Dr. Chaparro. She does demonstrate a history of intermittent episodes of diplopia over last 4 days. She will be admitted with ophthalmology and neurology consultation (Cheng Aguilar) Medical Decision Making - Lab Data Result diagrams: 10/24/18 12:43 10/24/18 11:30 <Brown Arnold - Last Filed: 10/24/18 14:25> - Lab Data Result diagrams: 10/24/18 12:43 10/24/18 11:30 <Cheng Aguilar - Last Filed: 10/24/18 14:30> - Medical Decision Making 78-year-old female patient past medical history of a fibrillation, COPD on home oxygen, TIA, hypertension, hyperlipidemia status post cataract surgery, this ED for multiple complaints. Patient reports that she has sensation of generalized weakness, patient reports worsening vision patient reports that she has had 3 days of waxing and waning diplopia, reports approximately 3 days of cough and congestion. Patient states that breathing status is at baseline, denies any chest pain shortness of breath. Patient denies abdominal pain, nausea vomiting or diarrhea. Patient denies any headache, facial droop, vocal muscular weakness. Denies other complaints. Patient vital signs stable, afebrile. Physical exam did not display acute pathology, neurologic exam within normal limits, NIH 0. M investigations revealed nonspecific CBC, CMP, cardiac studies. Troponin negative. TSH within normal limits. UA displayed 68 RBC, 59 squamous will culture. EKG not concerned for acute ischemia. Patient be admitted for neurology, ophthalmology evaluations. Case discussed and pt seen by Dr. Aguilar. (Brown Arnold) - Lab Data Lab Results 10/24/18 10/24/18 10/24/18 Range/Units 11:30 11:30 11:30 WBC (3.8-10.6) k/uL RBC (3.80-5.40) m/uL Hgb (11.4-16.0) gm/dL Hct (34.0-46.0) % MCV (80.0-100.0) fL MCH (25.0-35.0) pg MCHC (31.0-37.0) g/dL RDW (11.5-15.5) % Plt Count (150-450) k/uL Neutrophils % % Lymphocytes % % Monocytes % % Eosinophils % % Basophils % % Neutrophils # (1.3-7.7) k/uL Lymphocytes # (1.0-4.8) k/uL Monocytes # (0-1.0) k/uL Eosinophils # (0-0.7) k/uL Basophils # (0-0.2) k/uL PT 11.3 (9.0-12.0) sec INR 1.1 (<1.2) APTT 20.5 L (22.0-30.0) sec Sodium 141 (137-145) mmol/L Potassium 3.7 (3.5-5.1) mmol/L Chloride 104 (98-107) mmol/L Carbon Dioxide 27 (22-30) mmol/L Anion Gap 10 mmol/L BUN 17 (7-17) mg/dL Creatinine 0.85 (0.52-1.04) mg/dL Est GFR (CKD-EPI)AfAm 76 (>60 ml/min/1.73 sqM) Est GFR (CKD-EPI)NonAf 66 (>60 ml/min/1.73 sqM) Glucose 129 H (74-99) mg/dL Plasma Lactic Acid Osmel (0.7-2.0) mmol/L Calcium 9.7 (8.4-10.2) mg/dL Magnesium 2.3 (1.6-2.3) mg/dL Total Bilirubin 1.4 H (0.2-1.3) mg/dL AST 19 (14-36) U/L ALT 11 (9-52) U/L Alkaline Phosphatase 70 (38-126) U/L Troponin I <0.012 (0.000-0.034) ng/mL Total Protein 7.5 (6.3-8.2) g/dL Albumin 4.6 (3.5-5.0) g/dL TSH 1.260 (0.465-4.680) mIU/L Urine Color Urine Appearance (Clear) Urine pH (5.0-8.0) Ur Specific [place] (1.001-1.035) Urine Protein (Negative) Urine Glucose (UA) (Negative) Urine Ketones (Negative) Urine Blood (Negative) Urine Nitrite (Negative) Urine Bilirubin (Negative) Urine Urobilinogen (<2.0) mg/dL Ur Leukocyte Esterase (Negative) Urine RBC (0-5) /hpf Urine WBC (0-5) /hpf Ur Squamous Epith Cells (0-4) /hpf Urine Mucus (None) /hpf 10/24/18 10/24/18 10/24/18 Range/Units 11:30 12:02 12:43 WBC 6.6 (3.8-10.6) k/uL RBC 4.39 (3.80-5.40) m/uL Hgb 12.8 (11.4-16.0) gm/dL Hct 39.1 (34.0-46.0) % MCV 89.1 (80.0-100.0) fL MCH 29.1 (25.0-35.0) pg MCHC 32.7 (31.0-37.0) g/dL RDW 15.0 (11.5-15.5) % Plt Count 305 (150-450) k/uL Neutrophils % 62 % Lymphocytes % 25 % Monocytes % 7 % Eosinophils % 3 % Basophils % 0 % Neutrophils # 4.1 (1.3-7.7) k/uL Lymphocytes # 1.6 (1.0-4.8) k/uL Monocytes # 0.4 (0-1.0) k/uL Eosinophils # 0.2 (0-0.7) k/uL Basophils # 0.0 (0-0.2) k/uL PT (9.0-12.0) sec INR (<1.2) APTT (22.0-30.0) sec Sodium (137-145) mmol/L Potassium (3.5-5.1) mmol/L Chloride (98-107) mmol/L Carbon Dioxide (22-30) mmol/L Anion Gap mmol/L BUN (7-17) mg/dL Creatinine (0.52-1.04) mg/dL Est GFR (CKD-EPI)AfAm (>60 ml/min/1.73 sqM) Est GFR (CKD-EPI)NonAf (>60 ml/min/1.73 sqM) Glucose (74-99) mg/dL Plasma Lactic Acid Osmel 1.2 (0.7-2.0) mmol/L Calcium (8.4-10.2) mg/dL Magnesium (1.6-2.3) mg/dL Total Bilirubin (0.2-1.3) mg/dL AST (14-36) U/L ALT (9-52) U/L Alkaline Phosphatase (38-126) U/L Troponin I (0.000-0.034) ng/mL Total Protein (6.3-8.2) g/dL Albumin (3.5-5.0) g/dL TSH (0.465-4.680) mIU/L Urine Color Yellow Urine Appearance Turbid H (Clear) Urine pH 6.0 (5.0-8.0) Ur Specific [place] 1.020 (1.001-1.035) Urine Protein 1+ H (Negative) Urine Glucose (UA) Negative (Negative) Urine Ketones 2+ H (Negative) Urine Blood Moderate H (Negative) Urine Nitrite Negative (Negative) Urine Bilirubin Negative (Negative) Urine Urobilinogen 2.0 (<2.0) mg/dL Ur Leukocyte Esterase Trace H (Negative) Urine RBC 68 H (0-5) /hpf Urine WBC 6 H (0-5) /hpf Ur Squamous Epith Cells 59 H (0-4) /hpf Urine Mucus Many H (None) /hpf 10/24/18 Range/Units 12:43 WBC (3.8-10.6) k/uL RBC (3.80-5.40) m/uL Hgb (11.4-16.0) gm/dL Hct (34.0-46.0) % MCV (80.0-100.0) fL MCH (25.0-35.0) pg MCHC (31.0-37.0) g/dL RDW (11.5-15.5) % Plt Count (150-450) k/uL Neutrophils % % Lymphocytes % % Monocytes % % Eosinophils % % Basophils % % Neutrophils # (1.3-7.7) k/uL Lymphocytes # (1.0-4.8) k/uL Monocytes # (0-1.0) k/uL Eosinophils # (0-0.7) k/uL Basophils # (0-0.2) k/uL PT 10.4 (9.0-12.0) sec INR 1.0 (<1.2) APTT 24.4 (22.0-30.0) sec Sodium (137-145) mmol/L Potassium (3.5-5.1) mmol/L Chloride (98-107) mmol/L Carbon Dioxide (22-30) mmol/L Anion Gap mmol/L BUN (7-17) mg/dL Creatinine (0.52-1.04) mg/dL Est GFR (CKD-EPI)AfAm (>60 ml/min/1.73 sqM) Est GFR (CKD-EPI)NonAf (>60 ml/min/1.73 sqM) Glucose (74-99) mg/dL Plasma Lactic Acid Osmel (0.7-2.0) mmol/L Calcium (8.4-10.2) mg/dL Magnesium (1.6-2.3) mg/dL Total Bilirubin (0.2-1.3) mg/dL AST (14-36) U/L ALT (9-52) U/L Alkaline Phosphatase (38-126) U/L Troponin I (0.000-0.034) ng/mL Total Protein (6.3-8.2) g/dL Albumin (3.5-5.0) g/dL TSH (0.465-4.680) mIU/L Urine Color Urine Appearance (Clear) Urine pH (5.0-8.0) Ur Specific [place] (1.001-1.035) Urine Protein (Negative) Urine Glucose (UA) (Negative) Urine Ketones (Negative) Urine Blood (Negative) Urine Nitrite (Negative) Urine Bilirubin (Negative) Urine Urobilinogen (<2.0) mg/dL Ur Leukocyte Esterase (Negative) Urine RBC (0-5) /hpf Urine WBC (0-5) /hpf Ur Squamous Epith Cells (0-4) /hpf Urine Mucus (None) /hpf Disposition Is patient prescribed a controlled substance at d/c from ED?: No <Brown Arnold - Last Filed: 10/24/18 14:25> <Cheng Aguilar - Last Filed: 10/24/18 14:30> Clinical Impression: Diplopia Disposition: ADMITTED IP TO THIS [facility] Condition: Serious Referrals: Pablo De La Garza DO [Primary Care Provider] - 1-2 days
--- NOTE | 2018-10-24 12:39 | XR ---
EXAMINATION TYPE: XR chest 2V DATE OF EXAM: 10/24/2018 COMPARISON: 03/06/2018 HISTORY: Shortness of breath TECHNIQUE: Frontal and lateral views of the chest are obtained. FINDINGS: Scattered senescent parenchymal changes noted. Hyperinflation compatible with COPD. No evidence for infiltrate. No evidence for atelectasis. Heart size is stable. Mediastinal structures are stable and grossly unremarkable. No evidence for hilar prominence. Degenerative changes dorsal spine. IMPRESSION: 1. No evidence for acute pulmonary disease.
[2018-10-24 12:41] LABS: Prothrombin Time 11.3 sec (9.0-12.0)
--- NOTE | 2018-10-24 12:41 | CT ---
EXAMINATION TYPE: CT brain wo con DATE OF EXAM: 10/24/2018 COMPARISON: May 29, 2018 HISTORY: Headache and double vision CT DLP: 1068.[address] of the brain was performed. The ventricles, basal cisterns and sulci overlying the cerebral convexities demonstrate mild enlargem ent. There is no evidence for intracranial hemorrhage or sulcal effacement. There is decreased attenuation about the periventricular white matter and deep white matter of both c erebral hemispheres, compatible with chronic small vessel ischemia. Differential diagnosis does inclu de demyelination. No mass effects are seen.No midline shift. Osseous calvarium is intact. If symptoms persist consider MRI. IMPRESSION: 1. Age related atrophic and chronic small vessel ischemic change without acute intracranial process s een at this time.
[2018-10-24 12:42] LABS: Partial Thromboplastin Time 20.5 sec (22.0-30.0)
[2018-10-24 12:43] LABS: INR 1.1 (<1.2)
[2018-10-24 12:54] LABS: Basophils % (A) 0 %; Eosinophils # (A) 0.2 k/uL (0-0.7); Eosinophils % (A) 3 %; HCT 39.1 % (34.0-46.0); HGB 12.8 gm/dL (11.4-16.0); Lymphocytes # (A) 1.6 k/uL (1.0-4.8); Lymphocytes % (A) 25 %; MCH 29.1 pg (25.0-35.0); MCHC 32.7 g/dL (31.0-37.0); MCV 89.1 fL (80.0-100.0); Mean Platelet Volume 7.5; Monocytes # (A) 0.4 k/uL (0-1.0); Monocytes % (A) 7 %; Neutrophils # (A) 4.1 k/uL (1.3-7.7); Neutrophils % (A) 62 %; Platelet Count 305 k/uL (150-450); RBC 4.39 m/uL (3.80-5.40); WBC 6.6 k/uL (3.8-10.6)
[2018-10-24 12:58] LABS: Albumin 4.6 g/dL (3.5-5.0); Calcium 9.7 mg/dL (8.4-10.2); Magnesium 2.3 mg/dL (1.6-2.3); Potassium 3.7 mmol/L (3.5-5.1); Total Bilirubin 1.4 mg/dL (0.2-1.3); Total Protein 7.5 g/dL (6.3-8.2)
[2018-10-24 13:01] LABS: Partial Thromboplastin Time 24.4 sec (22.0-30.0); Prothrombin Time 10.4 sec (9.0-12.0)
[2018-10-24 13:20] LABS: Appearance,Urine Turbid (Clear); Bilirubin,Urine Negative (Negative); Blood,Urine Moderate (Negative); Color,Urine Yellow; Glucose,Urine (UA) Negative (Negative); Ketones,Urine 2+ (Negative); Leukocyte Esterase,Urine Trace (Negative); Mucus,Urine Many /hpf; Nitrite,Urine Negative (Negative); Protein,Urine 1+ (Negative); RBC,Urine 68 /hpf (0-5); Squamous Epithelial Cell,Urine 59 /hpf (0-4); WBC,Urine 6 /hpf (0-5)
[2018-10-24] MEDS ORDERED: NALOXONE 0.4 MG/ML 1 ML VIAL IV PRN (14:26)
[2018-10-24] MEDS: SODIUM CHLORIDE 0.9% 1,000 ML IV SCH (14:38)
--- NOTE | 2018-10-24 14:38 | ED ---
Medical Decision Making - Lab Data Result diagrams: 10/24/18 12:43 10/24/18 11:30 - EKG Data -: EKG Interpreted by Me <Brown Arnold - Last Filed: 10/24/18 14:46> - Lab Data Result diagrams: 10/24/18 12:43 10/24/18 11:30 <Cheng Aguilar - Last Filed: 10/24/18 21:09> - Medical Decision Making A supervision: I proceeded [id number] evaluation patient did discuss findings with her. I also did discuss the case with Dr. Costello. Patient was admitted I do agree with the assessment and plan (Cheng Aguilar) - Lab Data Lab Results 10/24/18 10/24/18 10/24/18 Range/Units 11:30 11:30 11:30 WBC (3.8-10.6) k/uL RBC (3.80-5.40) m/uL Hgb (11.4-16.0) gm/dL Hct (34.0-46.0) % MCV (80.0-100.0) fL MCH (25.0-35.0) pg MCHC (31.0-37.0) g/dL RDW (11.5-15.5) % Plt Count (150-450) k/uL Neutrophils % % Lymphocytes % % Monocytes % % Eosinophils % % Basophils % % Neutrophils # (1.3-7.7) k/uL Lymphocytes # (1.0-4.8) k/uL Monocytes # (0-1.0) k/uL Eosinophils # (0-0.7) k/uL Basophils # (0-0.2) k/uL PT 11.3 (9.0-12.0) sec INR 1.1 (<1.2) APTT 20.5 L (22.0-30.0) sec Sodium 141 (137-145) mmol/L Potassium 3.7 (3.5-5.1) mmol/L Chloride 104 (98-107) mmol/L Carbon Dioxide 27 (22-30) mmol/L Anion Gap 10 mmol/L BUN 17 (7-17) mg/dL Creatinine 0.85 (0.52-1.04) mg/dL Est GFR (CKD-EPI)AfAm 76 (>60 ml/min/1.73 sqM) Est GFR (CKD-EPI)NonAf 66 (>60 ml/min/1.73 sqM) Glucose 129 H (74-99) mg/dL Plasma Lactic Acid Osmel (0.7-2.0) mmol/L Calcium 9.7 (8.4-10.2) mg/dL Magnesium 2.3 (1.6-2.3) mg/dL Total Bilirubin 1.4 H (0.2-1.3) mg/dL AST 19 (14-36) U/L ALT 11 (9-52) U/L Alkaline Phosphatase 70 (38-126) U/L Troponin I <0.012 (0.000-0.034) ng/mL Total Protein 7.5 (6.3-8.2) g/dL Albumin 4.6 (3.5-5.0) g/dL TSH 1.260 (0.465-4.680) mIU/L Urine Color Urine Appearance (Clear) Urine pH (5.0-8.0) Ur Specific [place] (1.001-1.035) Urine Protein (Negative) Urine Glucose (UA) (Negative) Urine Ketones (Negative) Urine Blood (Negative) Urine Nitrite (Negative) Urine Bilirubin (Negative) Urine Urobilinogen (<2.0) mg/dL Ur Leukocyte Esterase (Negative) Urine RBC (0-5) /hpf Urine WBC (0-5) /hpf Ur Squamous Epith Cells (0-4) /hpf Urine Mucus (None) /hpf 10/24/18 10/24/18 10/24/18 Range/Units 11:30 12:02 12:43 WBC 6.6 (3.8-10.6) k/uL RBC 4.39 (3.80-5.40) m/uL Hgb 12.8 (11.4-16.0) gm/dL Hct 39.1 (34.0-46.0) % MCV 89.1 (80.0-100.0) fL MCH 29.1 (25.0-35.0) pg MCHC 32.7 (31.0-37.0) g/dL RDW 15.0 (11.5-15.5) % Plt Count 305 (150-450) k/uL Neutrophils % 62 % Lymphocytes % 25 % Monocytes % 7 % Eosinophils % 3 % Basophils % 0 % Neutrophils # 4.1 (1.3-7.7) k/uL Lymphocytes # 1.6 (1.0-4.8) k/uL Monocytes # 0.4 (0-1.0) k/uL Eosinophils # 0.2 (0-0.7) k/uL Basophils # 0.0 (0-0.2) k/uL PT (9.0-12.0) sec INR (<1.2) APTT (22.0-30.0) sec Sodium (137-145) mmol/L Potassium (3.5-5.1) mmol/L Chloride (98-107) mmol/L Carbon Dioxide (22-30) mmol/L Anion Gap mmol/L BUN (7-17) mg/dL Creatinine (0.52-1.04) mg/dL Est GFR (CKD-EPI)AfAm (>60 ml/min/1.73 sqM) Est GFR (CKD-EPI)NonAf (>60 ml/min/1.73 sqM) Glucose (74-99) mg/dL Plasma Lactic Acid Osmel 1.2 (0.7-2.0) mmol/L Calcium (8.4-10.2) mg/dL Magnesium (1.6-2.3) mg/dL Total Bilirubin (0.2-1.3) mg/dL AST (14-36) U/L ALT (9-52) U/L Alkaline Phosphatase (38-126) U/L Troponin I (0.000-0.034) ng/mL Total Protein (6.3-8.2) g/dL Albumin (3.5-5.0) g/dL TSH (0.465-4.680) mIU/L Urine Color Yellow Urine Appearance Turbid H (Clear) Urine pH 6.0 (5.0-8.0) Ur Specific [place] 1.020 (1.001-1.035) Urine Protein 1+ H (Negative) Urine Glucose (UA) Negative (Negative) Urine Ketones 2+ H (Negative) Urine Blood Moderate H (Negative) Urine Nitrite Negative (Negative) Urine Bilirubin Negative (Negative) Urine Urobilinogen 2.0 (<2.0) mg/dL Ur Leukocyte Esterase Trace H (Negative) Urine RBC 68 H (0-5) /hpf Urine WBC 6 H (0-5) /hpf Ur Squamous Epith Cells 59 H (0-4) /hpf Urine Mucus Many H (None) /hpf 10/24/18 Range/Units 12:43 WBC (3.8-10.6) k/uL RBC (3.80-5.40) m/uL Hgb (11.4-16.0) gm/dL Hct (34.0-46.0) % MCV (80.0-100.0) fL MCH (25.0-35.0) pg MCHC (31.0-37.0) g/dL RDW (11.5-15.5) % Plt Count (150-450) k/uL Neutrophils % % Lymphocytes % % Monocytes % % Eosinophils % % Basophils % % Neutrophils # (1.3-7.7) k/uL Lymphocytes # (1.0-4.8) k/uL Monocytes # (0-1.0) k/uL Eosinophils # (0-0.7) k/uL Basophils # (0-0.2) k/uL PT 10.4 (9.0-12.0) sec INR 1.0 (<1.2) APTT 24.4 (22.0-30.0) sec Sodium (137-145) mmol/L Potassium (3.5-5.1) mmol/L Chloride (98-107) mmol/L Carbon Dioxide (22-30) mmol/L Anion Gap mmol/L BUN (7-17) mg/dL Creatinine (0.52-1.04) mg/dL Est GFR (CKD-EPI)AfAm (>60 ml/min/1.73 sqM) Est GFR (CKD-EPI)NonAf (>60 ml/min/1.73 sqM) Glucose (74-99) mg/dL Plasma Lactic Acid [place]smel (0.7-2.0) mmol/L Calcium (8.4-10.2) mg/dL Magnesium (1.6-2.3) mg/dL Total Bilirubin (0.2-1.3) mg/dL AST (14-36) U/L ALT (9-52) U/L Alkaline Phosphatase (38-126) U/L Troponin I (0.000-0.034) ng/mL Total Protein (6.3-8.2) g/dL Albumin (3.5-5.0) g/dL TSH (0.465-4.680) mIU/L Urine Color Urine Appearance (Clear) Urine pH (5.0-8.0) Ur Specific [place] (1.001-1.035) Urine Protein (Negative) Urine Glucose (UA) (Negative) Urine Ketones (Negative) Urine Blood (Negative) Urine Nitrite (Negative) Urine Bilirubin (Negative) Urine Urobilinogen (<2.0) mg/dL Ur Leukocyte Esterase (Negative) Urine RBC (0-5) /hpf Urine WBC (0-5) /hpf Ur Squamous Epith Cells (0-4) /hpf Urine Mucus (None) /hpf - EKG Data EKG Comments: Ventricular rate 63, patient for 144, QRS 74, QT/QTc [id number]. Normal gingiva, nonspecific ST abnormality. Abnormal EKG. No concern for acute ischemia at this time. (Brown Arnold) Disposition Is patient prescribed a controlled substance at d/c from ED?: No <Brown Arnold - Last Filed: 10/24/18 14:46> <Cheng Aguilar - Last Filed: 10/24/18 21:09> Clinical Impression: Diplopia Disposition: ADMITTED IP TO THIS HOSP Condition: Serious
--- NOTE | 2018-10-24 15:34 | US ---
EXAMINATION TYPE: US carotid duplex BILAT DATE OF EXAM: 10/24/2018 COMPARISON: NONE CLINICAL HISTORY: Pain. Neck pain EXAM MEASUREMENTS: RIGHT: Peak Systolic Velocity (PSV) cm/sec ----- Right CCA: 72.2 ----- Right ICA: 102.5 ----- Right ECA: 112.1 ICA/CCA ratio: 1.4 RIGHT: End Diastole cm/sec ----- Right CCA: 15.7 ----- Right ICA: 32.4 ----- Right ECA: 11.1 LEFT: Peak Systolic Velocity (PSV) cm/sec ----- Left CCA: 74.4 ----- Left ICA: 121.9 ----- Left ECA: 72.9 ICA/CCA ratio: 1.6 LEFT: End Diastole cm/sec ----- Left CCA: 13.0 ----- Left ICA: 30.4 ----- Left ECA: 7.4 VERTEBRALS (direction of flow): Right Vertebral: Antegrade Left Vertebral: Antegrade Rhythm: Normal No elevated velocities, no significant stenosis. IMPRESSION: Mild degree of grayscale atheromatous plaquing with no sonographically evident hemodynam ically significant stenosis within either visualized carotid arterial system. Criteria for Assigning % of Stenosis / Diameter reduction (Estimation based on the indirect measurements of the internal carotid artery velocities (ICA PSV). 1. Normal (no stenosis)=ICA PSV < 125 cm/s: ratio < 2.0: ICA EDV<40 cm/s. 2. Less than 50% stenosis=ICA PSV < 125 cm/s: ratio < 2.0: ICA EDV<40 cm/s. 3. 50 to 69% stenosis=ICA PSV of 125 to 230 cm/s: ration 2.0 ? 4.0: ICA EDV 40-100 cm/s. 4. Greater than 70% stenosis to near occlusion= ICA PSV > 230 cm/s: ratio > 4.0: ICA EDV > 100 cm/s. 5. Near occlusion= ICA PSV velocities may be low or undetectable: variable ratio and ICA EDV. 6. Total occlusion=unable to detect flow.
[2018-10-24] MEDS ORDERED: HYDROcodone/APAP 5-325MG 1 EACH TAB PO PRN (17:48)
--- NOTE | 2018-10-24 18:00 | P.HPIM ---
History of Present Illness Chief Complaint: Diplopia This is a very pleasant 77-year-old female history of A. fib, COPD, TIA, GERD, hyperlipidemia, essential tremor, chronic back pain, restless leg syndrome comes in for above-mentioned complaint. Patient says that she's been having double vision and headaches for the past 1 week on and off. She says that she's feeling weak in her legs bilaterally she is also having lightheadedness and dizziness for the past few days. She said that she's scared with his above symptoms and was emotional this morning. She does came into the ER for further evaluation and management. She otherwise does not complain of any chest pain racing heart she said that she is always short of breath and she is on 3-3 l of oxygen at home for COPD. She does not complain of any abdominal pain, no nausea and vomiting, or diarrhea constipation, no tingling numbness on in the extremities, and additional rest. ER course-patient's vitals were stable in the ER. Labwork was initial WBC 6.6 hemoglobin 12.8 platelets 305 sodium 141 potassium 3.7 BU and [address] of the head was done which showed no acute changes. Ultrasound carotids was done which showed no hemodynamically significant stenosis. Patient was admitted to the hospitalist service a further evaluation and management with neurology and ophthalmology consult Review of Systems All systems: negative Past Medical History Past Medical History: Atrial Fibrillation, COPD, CVA/TIA, Eye Disorder, GERD/Reflux, Hyperlipidemia, Pneumonia Additional Past Medical History / Comment(s): Chronic atrial fibrillation per PMH but pt has no recollection of this, bronchiectasis, essential tremors, previous TIA, chronic lumbar back pain, past 6 months R shoulder/cervical pain, balance difficulty with falls, occasional low urinary output and uses lasix prn for this, bilateral varicose veins, dysphagia-able to take pills one at a time with water, small hiatal hernia, restless leg syndrome, seasonal ALLERGIES, History of Any Multi-Drug Resistant Organisms: None Reported Past Surgical History: Hysterectomy Additional Past Surgical History / Comment(s): 11/27/15 EGD with bx, bilateral cataracts removed with lens implants, colonoscopy with 1 benign polypectomy. Past Anesthesia/Blood Transfusion Reactions: No Reported Reaction Past Psychological History: Anxiety, Depression Additional Psychological History / Comment(s): Pt recently completed receiving home care thru [facility]. Pt's son, Sonu lives with her. She uses a cane or walker to ambulate. She drives short distances. Her blessing, Rita comes and cleans home on occasion. Sonu helps in the home as well. Family or friends drive pt most times. She has home O2 and a nebulizer. She states she prepares food or her daughter will. Smoking Status: Never smoker Past Alcohol Use History: None Reported Additional Past Alcohol Use History / Comment(s): Pt states she started smoking in her early 20's. She quit for several yrs, during her pregnancies and when her children were young. She quit for good in 2014. Past Drug Use History: None Reported - Past Family History Father Family Medical History: Cancer Additional Family Medical History / Comment(s): Pt thinks father might have from stomach cancer. She was 2 yrs old when he . Sister(s) Family Medical History: Cancer Additional Family Medical History / Comment(s): Half sister with brain cancer. Mother Family Medical History: Dementia Additional Family Medical History / Comment(s): Mother had gallstones and a partial thyroidectomy for noncancerous reasons. Medications and Allergies Home Medications Medication Instructions Recorded Confirmed Type FLUoxetine HCL [PROzac] 20 mg PO DAILY 12/19/14 10/24/18 History Montelukast Sodium [Singulair] 10 mg PO DAILY 08/24/17 10/24/18 History Omeprazole 40 mg PO DAILY 08/24/17 10/24/18 History Albuterol Sulfate [Proair Hfa] 2 puff INHALATION RT-Q4H 03/06/18 10/24/18 History Furosemide [Lasix] 20 mg PO DAILY 03/06/18 10/24/18 History ALPRAZolam [Xanax] 0.5 mg PO TID PRN #10 tab 03/08/18 10/24/18 Rx Albuterol Nebulized [Ventolin 2.5 mg INHALATION RT-QID 10/24/18 10/24/18 History Nebulized] Aspirin 81 mg PO DAILY 10/24/18 10/24/18 History HYDROcodone/APAP 5-325MG [Orange 1 tab PO TID PRN 10/24/18 10/24/18 History 5-325] Ipratropium Nebulized [Atrovent 0.5 mg INHALATION RT-QID 10/24/18 10/24/18 History Nebulized 0.2 MG/ML] Propranolol [Inderal] 10 mg PO TID 10/24/18 10/24/18 History Allergies Allergy/AdvReac Type Severity Reaction Status Date / Time ibuprofen Allergy Unknown Verified 10/24/18 11:26 Iodinated Contrast- Oral and Allergy Unknown Verified 10/24/18 11:26 IV Dye iodine Allergy Rash/Hives Verified 10/24/18 11:26 lorazepam [From Ativan] Allergy Hallucinati Verified 10/24/18 11:26 ons Sulfa (Sulfonamide Allergy Rash/Hives Verified 10/24/18 11:26 Antibiotics) topiramate [From Topamax] Allergy Unknown Verified 10/24/18 11:26 prednisone AdvReac DIZINESS Verified 10/24/18 11:26 zolpidem tartrate AdvReac Hallucinati Verified 10/24/18 11:26 [From Ambien] ons Physical Exam Vitals: Vital Signs Temp Pulse Pulse Resp BP BP Pulse Ox 10/24/18 15:30 97.8 F 85 20 127/77 94 L 10/24/18 15:20 60 18 134/64 100 10/24/18 11:03 97.8 F 71 20 127/66 94 L Intake and Output 10/24/18 10/24/18 10/24/18 06:59 14:59 22:59 Other: # Voids 1 Weight 61.235 kg On exam, alert and oriented x3. HEENT: Conjunctivae normal. eyes normal. NECK: No JVD. No thyroid enlargement. No LNs CARDIOVASCULAR: S1, S2 muffled. No murmur RESPIRATION: Breath sounds diminished in the bases. No rhonchi or crackles. No bronchial breathing. ABDOMEN: Soft, nontender . No guarding. no masses palpable. No ascites, No h epatosplenomegaly.Bowel sounds heard. LEGS: No edema. no swelling NERVOUS SYSTEM: Cranial N 2-12 grossly normal. Moves all 4 limbs. No focal deficits. No sensory deficit. No signs of cerebellar dysfucntion. patient says that her diplopia is better now and she is not seeing double images now Skin: no ulcer no rash Results CBC & Chem 7: 10/24/18 12:43 07/03/19 11:30 Labs: Abnormal Lab Results - Last 24 Hours (Table) 10/24/18 10/24/18 10/24/18 Range/Units 11:30 11:30 12:02 APTT 20.5 L (22.0-30.0) sec Glucose 129 H (74-99) mg/dL Total Bilirubin 1.4 H (0.2-1.3) mg/dL Urine Appearance Turbid H (Clear) Urine Protein 1+ H (Negative) Urine Ketones 2+ H (Negative) Urine Blood Moderate H (Negative) Ur Leukocyte Esterase Trace H (Negative) Urine RBC 68 H (0-5) /hpf Urine WBC 6 H (0-5) /hpf Ur Squamous Epith Cells 59 H (0-4) /hpf Urine Mucus Many H (None) /hpf Thrombosis Risk Factor Assmnt - Choose All That Apply Any of the Below Risk Factors Present?: Yes Each Factor Represents 1 point: Abnormal pulmonary function (COPD), Varicose veins Other Risk Factors: Yes Each Risk Factor Represents 3 Points: Age 75 years or older Other congenital or acquired thrombophilia - If yes, enter type in comment: No Thrombosis Risk Factor Assessment Total Risk Factor Score: 5 Thrombosis Risk Factor Assessment Level: High Risk Assessment and Plan Assessment: - Diplopia - Dizziness and weakness - History of COPD on 3 and liters of oxygen at home - History of TIAs - History of A. fib - History of hyperlipidemia Plan - We'll admit the patient to [facility] with telemetry - Patient at this time says that her diplopia is better but she's feeling weak and dizzy still. We'll consult neurology. - Ophthalmology was consulted in the ER - We will resume the patient's home medications - DVT and GI prophylaxis - We'll order for lab work in the morning - Expected length of stay: 2 midnights - Patient wants to be full code
[2018-10-24] MEDS: ALPRAZolam 0.5 MG TAB PO PRN (18:15)
[2018-10-24] MEDS: IPRATROPIUM-ALBUTEROL 3 ML NEB IH SCH (19:14)
[2018-10-24] MEDS ORDERED: ALBUTEROL NEBULIZED 2.5 MG/3 ML INHALATION SCH (20:00)
[2018-10-24] MEDS ORDERED: IPRATROPIUM 0.5 MG/2.5 ML NEBU INHALATION SCH (20:00)
[2018-10-24] MEDS ORDERED: ALBUTEROL NEBULIZED 2.5 MG/3 ML INHALATION PRN (20:00)
--- NOTE | 2018-10-24 20:12 | P.CNNES ---
History of Present Illness Consult date: 10/24/18 Requesting physician: Brown Arnold Reason for Consult: Diplopia Chief complaint: H/A and double vision on and off for a week History of Present Illness: This is a 77 RH female h/ HL, TIA, afib, COPD, BET, RLS, GERD and CLBP who presented to the ER c/o a 1-week h/o intermittent headache and diplopia. Headache is bitemporal and squeezing. Double vision is described as "two images stacked on top of each other." No photopsias, transient monocular visual loss, field cut or amaurosis. Did get new eyeglasses whose prisms patient does not feel fit hers. But, she states she was not wearing those eyeglasses today. Has chronic neck pain and sometimes difficulty holding her head up, but no diurnal worsening. No ptosis, worsening SOB (she uses O2 h/o COPD), bulbar symptoms such as dysarthria, dysphagia or hoarseness in voice. She does feel weak in BLE and has had some lightheadedness without vertigo. No falls or neck/spine trauma. Some emotional stress. Review of Systems I have performed a 14-point organ ROS with patient that are negative except as per HPI. Past Medical History Past Medical History: Atrial Fibrillation, COPD, CVA/TIA, Eye Disorder, GERD/Reflux, Hyperlipidemia, Pneumonia Additional Past Medical History / Comment(s): Chronic atrial fibrillation per PMH but pt has no recollection of this, bronchiectasis, essential tremors, previous TIA, chronic lumbar back pain, past 6 months R shoulder/cervical pain, balance difficulty with falls, occasional low urinary output and uses lasix prn for this, bilateral varicose veins, dysphagia-able to take pills one at a time with water, small hiatal hernia, restless leg syndrome, seasonal ALLERGIES, History of Any Multi-Drug Resistant Organisms: None Reported Past Surgical History: Hysterectomy Additional Past Surgical History / Comment(s): 11/27/15 EGD with bx, bilateral cataracts removed with lens implants, colonoscopy with 1 benign polypectomy. Past Anesthesia/Blood Transfusion Reactions: No Reported Reaction Past Psychological History: Anxiety, Depression Additional Psychological History / Comment(s): Pt recently completed receiving home care thru [facility]. Pt's son, Sonu lives with her. She uses a cane or walker to ambulate. She drives short distances. Her blessing, Rita comes and cleans home on occasion. Sonu helps in the home as well. Family or friends drive pt most times. She has home O2 and a nebulizer. She states she prepares food or her daughter will. Smoking Status: Never smoker Past Alcohol Use History: None Reported Additional Past Alcohol Use History / Comment(s): Pt states she started smoking in her early 20's. She quit for several yrs, during her pregnancies and when her children were young. She quit for good in 2014. Past Drug Use History: None Reported - Past Family History Father Family Medical History: Cancer Additional Family Medical History / Comment(s): Pt thinks father might have from stomach cancer. She was 2 yrs old when he . Sister(s) Family Medical History: Cancer Additional Family Medical History / Comment(s): Half sister with brain cancer. Mother Family Medical History: Dementia Additional Family Medical History / Comment(s): Mother had gallstones and a partial thyroidectomy for noncancerous reasons. Medications and Allergies Home Medications Medication Instructions Recorded Confirmed Type FLUoxetine HCL [PROzac] 20 mg PO DAILY 12/19/14 10/24/18 History Montelukast Sodium [Singulair] 10 mg PO DAILY 08/24/17 10/24/18 History Omeprazole 40 mg PO DAILY 08/24/17 10/24/18 History Albuterol Sulfate [Proair Hfa] 2 puff INHALATION RT-Q4H 03/06/18 10/24/18 History Furosemide [Lasix] 20 mg PO DAILY 03/06/18 10/24/18 History ALPRAZolam [Xanax] 0.5 mg PO TID PRN #10 tab 03/08/18 10/24/18 Rx Albuterol Nebulized [Ventolin 2.5 mg INHALATION RT-QID 10/24/18 10/24/18 History Nebulized] Aspirin 81 mg PO DAILY 10/24/18 10/24/18 History HYDROcodone/APAP 5-325MG [[place] 1 tab PO TID PRN 10/24/18 10/24/18 History 5-325] Ipratropium Nebulized [Atrovent 0.5 mg INHALATION RT-QID 10/24/18 10/24/18 History Nebulized 0.2 MG/ML] Propranolol [Inderal] 10 mg PO TID 10/24/18 10/24/18 History Allergies Allergy/AdvReac Type Severity Reaction Status Date / Time ibuprofen Allergy Unknown Verified 10/24/18 11:26 Iodinated Contrast- Oral and Allergy Unknown Verified 10/24/18 11:26 IV Dye iodine Allergy Rash/Hives Verified 10/24/18 11:26 lorazepam [From Ativan] Allergy Hallucinati Verified 10/24/18 11:26 ons Sulfa (Sulfonamide Allergy Rash/Hives Verified 10/24/18 11:26 Antibiotics) topiramate [From Topamax] Allergy Unknown Verified 10/24/18 11:26 prednisone AdvReac DIZINESS Verified 10/24/18 11:26 zolpidem tartrate AdvReac Hallucinati Verified 10/24/18 11:26 [From Ambien] ons Physical Examination - Vital Signs Vital Signs: Vital Signs Temp Pulse Pulse Resp BP BP Pulse Ox 10/24/18 19:22 68 10/24/18 19:17 68 98 10/24/18 15:30 97.8 F 85 20 127/77 94 L 10/24/18 15:20 60 18 134/64 100 10/24/18 11:03 97.8 F 71 20 127/66 94 L Intake and Output 10/24/18 10/24/18 10/24/18 06:59 14:59 22:59 Intake Total 10 Balance 10 Intake: IV 10 Invasive Line 1 10 Other: # Voids 1 Weight 61.235 kg Gen NAD Pleasant and cooperative HEENT NCAT Sclera without icterus O/P clear Neck Supple No carotid bruit Cor RRR no m/r/g Lungs CTAB Abd Soft NTND +BS Ext Warm to touch No edema Neuro MS A+Ox4 Normal fluency Able to follow all commands CN PERRL VFF no APD EOMI no nystagmus or ANAI No facial asymmetry Masseter's symmetric Hearing intact to normal voice bilaterally Speech not dysarthric Equal elevation of palate Tongue midline Sym shrug and SCM bilaterally Motor Normal bulk/tone No pronator drift Bilateral postural and action tremor in hands Strength 5/5 sym throughout Sens Intact to LT x4 No neglect Coord No dysmetria on FTN bilaterally DTRs 2+/4 sym throughout Toes downgoing bilaterally No clonus at achilles Gait Deferred NIHSS [address] Head wo cont 07/03/19. Age related atrophy and chronic small vessel disease. No ICH. Nil acute. Carotid duplex 10/24/18. Mild atheromatous plaque without hemodynamically significant stenosis in BICA. I have reviewed neuroimages myself. - Laboratory Findings CBC and BMP: 10/24/18 12:43 10/24/18 11:30 Abnormal Lab Findings: Abnormal Labs 10/24/18 10/24/18 10/24/18 11:30 11:30 12:02 APTT 20.5 L Glucose 129 H Total Bilirubin 1.4 H Urine Appearance Turbid H Urine Protein 1+ H Urine Ketones 2+ H Urine Blood Moderate H Ur Leukocyte Esterase Trace H Urine RBC 68 H Urine WBC 6 H Ur Squamous Epith Cells 59 H Urine Mucus Many H Assessment and Plan Assessment: Episodic headache and diplopia along with lightheadedness and BLE weakness. Presentation not localizing within CLINICAL DERMATOLOGIST for vascular TIA. CNVI palsy from small vessel disease another possibility, though she does not have any diplopia on exam right now. Need to expand DDx to include rest of nervous system such NMJ d/o, myopathy and so forth. BET Plan: -CT Head and carotid duplex results reviewed with patient -TTE ordered by primary team -TSH, CMP including Mg and TSH WNL -Send B12, CK, ESR, MARCE, acetylcholine receptor binding antibody -Ophthalmology consult pending -If above evaluation unrevealing, please refer patient to outpatient neurology for follow-up and potential further testing such as EMG/NCS to r/o PNS condi tions -Continue beta blockade for BET -d/w patient and son in detail. All questions answered Thank you for this consultation. Please call with ?. Time with Patient: Greater than 30 (Time spent in direct patient care, greater than 50% of which was spent in [id number] counseling and coordination of care: 70 minutes.)
[2018-10-24] MEDS: PROPRANOLOL 10 MG TAB PO SCH (21:16)
[2018-10-25] MEDS: SODIUM CHLORIDE 0.9% 1,000 ML IV SCH ×2 (01:44→11:37)
[2018-10-25] MEDS ORDERED: PANTOPRAZOLE 40 MG TABLET PO SCH (07:30)
[2018-10-25 07:59] VITALS: RESP 18
[2018-10-25] MEDS: PROPRANOLOL 10 MG TAB PO SCH (08:21)
[2018-10-25] MEDS: ALPRAZolam 0.5 MG TAB PO PRN (08:24)
[2018-10-25] MEDS: IPRATROPIUM-ALBUTEROL 3 ML NEB IH SCH ×3 (08:24→17:00)
[2018-10-25] MEDS ORDERED: FUROSEMIDE 20 MG TAB PO SCH (09:00)
[2018-10-25] MEDS ORDERED: ASPIRIN 81 MG PO SCH (09:00)
[2018-10-25] MEDS ORDERED: MONTELUKAST 10 MG TAB PO SCH (09:00)
[2018-10-25] MEDS ORDERED: FLUoxetine HCL 20 MG CAP PO SCH (09:00)
--- NOTE | 2018-10-25 09:34 | ECHOF ---
Referral Reason:diploplia MEASUREMENTS -------- HEIGHT: 157.5 cm WEIGHT: 61.2 kg BP: IVSd: 1.2 cm (0.6 - 1.1) LVIDd: 3.3 cm (3.9 - 5.3) LVPWd: 1.4 cm (0.6 - 1.1) IVSs: 1.8 cm LVIDs: 1.6 cm LVPWs: 1.8 cm LAESV Index (A-L): 19.54 ml/m Ao Diam: 3.1 cm (2.0 - 3.7) LA Diam: 2.9 cm (2.7 - 3.8) MV EXCURSION: 16.226 mm (> 18.000) MV EF SLOPE: 78 mm/s (70 - 150) EPSS: 2.7 cm MV E Enzo: 0.66 m/s MV DecT: 319 ms MV A Enzo: 0.93 m/s MV E/A Ratio: 0.71 RAP: 5.00 mmHg RVSP: 19.40 mmHg FINDINGS -------- Sinus rhythm. This was a technically good study. The left ventricular size is normal. There is mild concentric left ventricular hypertrophy. Overa ll left ventricular systolic function is low-normal with, an EF between 50 - 55 %. The diastolic fi lling pattern is normal for the age of the patient 11.22. The right ventricle is normal in size. The left atrial size is normal. Normal LA size by volume 22+/-6 ml/m2. The right atrial size is normal. Interatrial and interventricular septum intact. The aortic valve is trileaflet and appears structurally normal. The mitral valve is normal. The mitral valve leaflets are mildly thickened. Mild mitral annular c alcification present. Mild mitral regurgitation is present. The tricuspid valve appears structurally normal. Mild tricuspid regurgitation present. Right vent ricular systolic pressure is normal at < 35 mmHg. There is no pulmonic regurgitation present. The aortic root size is normal. Normal inferior vena cava with normal inspiratory collapse consistent with estimated right atrial pre ssure of 5 mmHg. The flow patterns, measured by Doppler, appear normal. There is no pericardial effusion. CONCLUSIONS -------- 1. Sinus rhythm. 2. This was a technically good study. 3. The left ventricular size is normal. 4. There is mild concentric left ventricular hypertrophy. 5. Overall left ventricular systolic function is low-normal with, an EF between 50 - 55 %. 6. The diastolic filling pattern is normal for the age of the patient 11.22 7. The right ventricle is normal in size. 8. The left atrial size is normal. 9. Normal LA size by volume 22+/-6 ml/m2. 10. The right atrial size is normal. 11. Interatrial and interventricular septum intact. 12. The aortic valve is trileaflet and appears structurally normal. 13. The mitral valve is normal. 14. The mitral valve leaflets are mildly thickened. 15. Mild mitral annular calcification present. 16. Mild mitral regurgitation is present. 17. The tricuspid valve appears structurally normal. 18. Mild tricuspid regurgitation present. 19. Right ventricular systolic pressure is normal at < 35 mmHg. 20. There is no pulmonic regurgitation present. 21. The aortic root size is normal. 22. Normal inferior vena cava with normal inspiratory collapse consistent with estimated right atrial pressure of 5 mmHg. 23. The flow patterns, measured by Doppler, appear normal. 24. There is no pericardial effusion. PSYCHOTHERAPIST COUNSELOR: Stacy Nunez RDCS
--- NOTE | 2018-10-25 10:24 | P.PN ---
Subjective Progress Note Date: 10/25/18 Principal diagnosis: H/A, dizziness and diplopia Blood tests. No acute events O/N. Ophtho consult pending. Patient feels better this morning. No diplopia or other neuro c/o. Feels ready to go home. Objective - Vital Signs Vital signs: Vital Signs Temp 98.2 F 10/25/18 07:35 Pulse 76 10/25/18 08:38 Resp 18 10/25/18 08:00 BP 110/66 10/25/18 07:35 Pulse Ox 100 10/25/18 08:25 Intake & Output 10/24/18 10/25/18 10/25/18 18:59 06:59 18:59 Intake Total 10 550 360 Balance 10 550 360 Weight 61.235 kg 60.5 kg Intake: IV 10 Invasive Line 1 10 Intake, IV Titration 400 Amount cefTRIAXone 1 gm In 400 Sodium Chloride 0.9% 50 ml @ 100 mls/hr IVPB Q24H BA Rx#:[id number] Oral 150 360 Other: # Voids 1 2 1 # Bowel Movements 1 - Exam Gen NAD Pleasant and cooperative MS A+Ox4 Normal speech CN II-XII grossly intact no nystagmus or diplopia Motor Normal bulk/tone No drift BUE postural and action tremor Strength 5/5 sym throughout Sens Intact to LT x4 No neglect Coord No dysmetria on FTN bilaterally DTRs 2+/4 sym throughout Gait Deferred NIHSS 0 - Labs CBC & Chem 7: 10/24/18 12:43 10/24/18 11:30 Labs: Abnormal Lab Results - Last 24 Hours (Table) 10/24/18 10/24/18 10/24/18 Range/Units 11:30 11:30 12:02 APTT 20.5 L (22.0-30.0) sec Glucose 129 H (74-99) mg/dL Total Bilirubin 1.4 H (0.2-1.3) mg/dL Urine Appearance Turbid H (Clear) Urine Protein 1+ H (Negative) Urine Ketones 2+ H (Negative) Urine Blood Moderate H (Negative) Ur Leukocyte Esterase Trace H (Negative) Urine RBC 68 H (0-5) /hpf Urine WBC 6 H (0-5) /hpf Ur Squamous Epith Cells 59 H (0-4) /hpf Urine Mucus Many H (None) /hpf - Imaging and Cardiology TTE 10/24/18. LV size normal. Mild concentric LVH. EF 50-55%. LA size normal. Interatrial and interventricular septum intact. Carotid duplex 10/24/18. No BICA stenosis. Assessment and Plan Assessment: Episodic headache and diplopia along with lightheadedness and BLE weakness. Presentation not localizing within CLINICIAN ONCOLOGY for vascular TIA. CNVI palsy from small vessel disease another possibility, though she does not have any diplopia on exam right now. Need to expand DDx to include rest of nervous system such NMJ d/o, myopathy and so forth. BET Plan: -CT Head, TTE and carotid duplex unrevealing -TSH, CMP including Mg and TSH WNL -Send B12, CK, ESR, MARCE, acetylcholine receptor binding antibody. Some of these results will take days to come back and will need outpatient neuro follow-up -Ophthalmology consult pending -If above evaluation unrevealing, please refer patient to outpatient neurology for follow-up and potential further testing such as EMG/NCS to r/o PNS conditions -Continue beta blockade for BET -d/w patient in detail. All questions answered -Stable for discharge from inpatient neuro standpoint. Please call with new questions. Thank you again for this consultation. Time with Patient: Less than 30 (Time spent in direct patient care, greater than 50% of which was spent in [id number] counseling and coordination of care: 25 minutes.)
[2018-10-25 11:12] VITALS: BP 111/61; TEMP 98.1
[2018-10-25 11:46] VITALS: PULSE 74
--- NOTE | 2018-10-25 12:28 | P.DS ---
Providers Date of admission: 10/24/18 14:28 Expected date of discharge: 10/25/18 Attending physician: Jovanni Maciel MD Consults: 10/24/18 14:26 Consult Physician Stat Consulting Provider: Chintan Melo Consult Reason/Comments: diploplia Do you want consulting provider notified?: Yes Consult Physician Stat Consulting Provider: Ty Fernández Consult Reason/Comments: diploplia Do you want consulting provider notified?: Yes [facility] Course: Discharge diagnosis - - Diplopia - Dizziness and weakness - History of COPD on 3 and liters of oxygen at home - History of TIAs - History of A. fib - History of hyperlipidemia Hospital course This is a very pleasant 77-year-old female history of A. fib, COPD, TIA, GERD, hyperlipidemia, essential tremor, chronic back pain, restless leg syndrome comes in for above-mentioned complaint. Patient says that she's been having double vision and headaches for the past 1 week on and off. She says that she's feeling weak in her legs bilaterally she is also having lightheadedness and dizziness for the past few days. She said that she's scared with his above symptoms and was emotional this morning. She does came into the ER for further evaluation and management. She otherwise does not complain of any chest pain racing heart she said that she is always short of breath and she is on 3-3 l of oxygen at home for COPD. She does not complain of any abdominal pain, no nausea and vomiting, or diarrhea constipation, no tingling numbness on in the extremities, and additional rest. ER course-patient's vitals were stable in the ER. Labwork was initial WBC 6.6 hemoglobin 12.8 platelets 305 sodium 141 potassium 3.7 BU and [address] of the head was done which showed no acute changes. Ultrasound carotids was done which showed no hemodynamically significant stenosis. Patient was admitted to the hospitalist service a further evaluation and management with neurology and ophthalmology consult Patient was seen by neurology. Patient was no longer having diplopia, no dizziness she says that she's feeling fine. On 10/25/2018 Patient does not complain of any diplopia, no dizziness, no chest pain or racing heart, no weakness in any palpable the body, a speech is okay. She does not complain of any chest pain or racing heart, no cough no shortness of breath. She does not complain of any tingling numbness on in the 70s. On exam, alert and oriented x3. HEENT: Conjunctivae normal. eyes normal. NECK: No JVD. No thyroid enlargement. No LNs CARDIOVASCULAR: S1-S2 positive RESPIRATION: Breath sounds diminished in the bases. No rhonchi or crackles. No bronchial breathing. ABDOMEN: Soft, nontender . No guarding. no masses palpable. No ascites, No he patosplenomegaly.Bowel sounds heard. LEGS: No edema. no swelling NERVOUS SYSTEM: Cranial N 2-12 grossly normal. Moves all 4 limbs. No focal deficits. No sensory deficit. No signs of cerebellar dysfucntion. Skin: no ulcer no rash Discharge plan : Patient was cleared by neurology to be discharged. Neurology ordered for some blood work which where drawn. Patient is to follow with neurology as an outpatient for further workup. Primary care requested to please make arrangement to see neurologist Patient was also requested to see an monorail operator an outpatient. She no longer having any diplopia, no dizziness. Patient Condition at Discharge: Stable Plan - Discharge Summary Discharge Rx Participant: Yes New Discharge Prescriptions: Continue FLUoxetine HCL [PROzac] 20 mg PO DAILY Omeprazole 40 mg PO DAILY Montelukast Sodium [Singulair] 10 mg PO DAILY Albuterol Sulfate [Proair Hfa] 2 puff INHALATION RT-Q4H Furosemide [Lasix] 20 mg PO DAILY ALPRAZolam [Xanax] 0.5 mg PO TID PRN #10 tab PRN Reason: Anxiety Ipratropium Nebulized [Atrovent Nebulized 0.2 MG/ML] 0.5 mg INHALATION RT-QID HYDROcodone/APAP 5-325MG [[place] 5-325] 1 tab PO TID PRN PRN Reason: Pain Albuterol Nebulized [Ventolin Nebulized] 2.5 mg INHALATION RT-QID Propranolol [Inderal] 10 mg PO TID Aspirin 81 mg PO DAILY Discharge Medication List FLUoxetine HCL [PROzac] 20 mg PO DAILY 12/19/14 [History] Montelukast Sodium [Singulair] 10 mg PO DAILY 08/24/17 [History] Omeprazole 40 mg PO DAILY 08/24/17 [History] Albuterol Sulfate [Proair Hfa] 2 puff INHALATION RT-Q4H 03/06/18 [History] Furosemide [Lasix] 20 mg PO DAILY 03/06/18 [History] ALPRAZolam [Xanax] 0.5 mg PO TID PRN #10 tab 03/08/18 [Rx] Albuterol Nebulized [Ventolin Nebulized] 2.5 mg INHALATION RT-QID 10/24/18 [History] Aspirin 81 mg PO DAILY 10/24/18 [History] HYDROcodone/APAP 5-325MG [[place] 5-325] 1 tab PO TID PRN 10/24/18 [History] Ipratropium Nebulized [Atrovent Nebulized 0.2 MG/ML] 0.5 mg INHALATION RT-QID 10/24/18 [History] Propranolol [Inderal] 10 mg PO TID 10/24/18 [History] Follow up Appointment(s)/Referral(s): Pablo De La Garza DO [Primary Care Provider] - 1-2 days Activity/Diet/Wound Care/Special Instructions: Please follow with the PCP and have him follow you up with ophthalmology for further evaluation and management If you have any increased double vision, any dizziness, any increased chest pain racing heart, any cough or shortness breath, any weakness in any side of the body, please call 911 and come to the ER Also, you had some blood work ordered while in the hospital. Please have the PCP follow up on the lab work and follow you up with the neurologist as well. Discharge Disposition: HOME SELF-CARE
== END 2018-10-25 17:00 | disposition home or self-care (01) | DRG 123 ==
LOC: EC 10:55 → 3SCARD 14:28
PROVIDERS: ADMIT Internal Medicine; ATTEND Internal Medicine
DX: H53.2 Diplopia (principal); G45.9 Transient cerebral ischemic attack, unspecified; R42 Dizziness and giddiness; E78.5 Hyperlipidemia, unspecified; F17.200 Nicotine dependence, unspecified, uncomplicated; F32.9 Major depressive disorder, single episode, unspecified; F41.9 Anxiety disorder, unspecified; G25.0 Essential tremor; G25.81 Restless legs syndrome; G89.29 Other chronic pain; I10 Essential (primary) hypertension; I48.2 Chronic atrial fibrillation; I73.9 Peripheral vascular disease, unspecified; J44.9 Chronic obstructive pulmonary disease, unspecified; K21.9 Gastro-esophageal reflux disease without esophagitis; Z96.1 Presence of intraocular lens; Z79.82 Long term (current) use of aspirin; Z86.73 Personal history of transient ischemic attack (TIA), and cerebral infarction without residual deficits; Z79.899 Other long term (current) drug therapy; Z80.8 Family history of malignant neoplasm of other organs or systems; Z90.710 Acquired absence of both cervix and uterus; Z99.81 Dependence on supplemental oxygen; Z87.01 Personal history of pneumonia (recurrent); Z98.42 Cataract extraction status, left eye; Z98.41 Cataract extraction status, right eye; Z98.890 Other specified postprocedural states
CPT/HCPCS: 36415; 70450; 71046; 80053; 81001; 82550; 82607; 83519; 83605; 83735; 84443; 84484; 85025; 85610; 85652; 85730; 86038; 93005; 93306; 93880; 94640; 94760; 96360; 96361; 99285

== ENCOUNTER → 2018-12-04 | Outpatient (CLI) | payer MEDICARE ==
--- NOTE | 2018-12-05 15:48 | MR ---
EXAMINATION TYPE: MR lumbar spine wo con DATE OF EXAM: 12/04/2018 COMPARISON: CT of the abdomen dated 09/30/2016 HISTORY: Repeated falls / Disc degeneration TECHNIQUE: Multiplanar, multisequence images of the lumbar spine were acquired. FINDINGS: There is an old compression deformity of the L2 vertebral body with height loss of approxim ately 40%. There is only very minimal 1 mm retropulsion of the superior endplate into the spinal jillian l. Multilevel Schmorl's nodes are seen. Modic type II degenerative endplate changes are seen at L2-L3 anteriorly along with Schmorl's nodes. There is very minimal retrolisthesis of L2 on L3 and L4 on L5 as well as L5 on S1. Multilevel disc desiccation is seen. Conus medullaris is unremarkable terminati ng at L2. 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 Too small to accurately characte rize left superior pole T2 hyperintense and T1 hypointense renal lesion. L1-L2: There is disc desiccation and minimal facet arthropathy resulting in minimal bilateral neural foraminal narrowing without spinal canal stenosis. L2-L3: There is a broad-based disc bulge and facet arthropathy resulting in mild bilateral neural for aminal narrowing without spinal canal stenosis. Minimal retropulsion of the compression deformity ocasio s not result in spinal canal stenosis at this level. L3-L4: There is a right eccentric broad-based disc bulge creating mild to moderate right and mild lef t neural foraminal narrowing. Facet arthropathy and ligamentum flavum buckling contribute to this fin ding. Borderline mild spinal canal stenosis. L4-L5: There is a very small central disc herniation superimposed upon a broad-based disc bulge. Face t arthropathy and ligamentum flavum buckling are seen contributing to moderate right and moderate lef t neural foraminal narrowing as well as very mild spinal canal stenosis. L5-S1: There is a small central disc herniation superimposed upon a broad-based disc bulge creating m oderate to severe bilateral neural foraminal narrowing. Ligamentum flavum buckling and facet arthropa thy are seen however no spinal canal stenosis is noted. IMPRESSION: 1. Chronic compression deformity of the L2 vertebral body with of approximately 40% vertebral body he ight loss and only minimal retropulsion. No resultant spinal canal stenosis. 2. Small central disc herniations at L4-L5 and L5-S1 with very mild spinal canal stenosis at L4-L5. 3. Multilevel malalignment with minimal retrolisthesis of L2 on L3, L4 on L5, and L5 on S1 all likely on a degenerative basis. 4. Borderline mild spinal canal stenosis at L3-L4 secondary to facet arthropathy, ligamentum flavum b uckling and broad-based disc bulge. 5. Multilevel degenerative disc disease of the lumbar spine, overall moderate resulting in variable d egrees of neural foraminal as detailed above.
== END | disposition home or self-care (01) ==
LOC: RADMRIMAIN 13:22
PROVIDERS: ATTEND Physician Assistant Medical
DX: M48.061 Spinal stenosis, lumbar region without neurogenic claudication (principal); M51.26 Other intervertebral disc displacement, lumbar region; M43.16 Spondylolisthesis, lumbar region; M51.36 Other intervertebral disc degeneration, lumbar region; M43.8X6 Other specified deforming dorsopathies, lumbar region; R29.6 Repeated falls
CPT/HCPCS: 72148

== ENCOUNTER 2018-12-23 01:14 | Emergency (ER) | payer MEDICARE ==
--- NOTE | 2018-12-23 01:28 | ED ---
SOB HPI <Viola Kelly P - Last Filed: 12/23/18 01:28> - General Source: RN notes reviewed, old records reviewed <Brown Arnold - Last Filed: 12/23/18 03:28> - General Stated Complaint: BARBIE Time Seen by Provider: 12/23/18 01:27 - History of Present Illness Initial Comments: 78-year-old female patient past medical history cystoscopy. The, on home oxygen presents to ED with chief complaint of CABG exacerbation. Patient reports that she went outside today and was exposed to pollen, this caused her to coughing, short of breath. Patient used an inhaler at home with minimal improvement. Patient then called EMS. Patient was administered 125 Solu-Medrol as well as updrafts enroute. Patient denies any chest pain. Upon arrival patient symptoms are significantly improved. Systemic: Pt denies fatigue, fever/chills, rash. Pt denies weakness, night sweats, weight loss. Neuro: Pt denies headache, visual disturbances, syncope or pre-syncope. HEENT: Pt denies ocular discharge or irritation, otalgia, rhinorrhea, pharyngitis or notable lymphadenopathy. Cardiopulmonary: Pt denies chest pain, heart palpitations, dyspnea on exertion. Abdominal/GI: Pt denies abdominal pain, n/v/d. : Pt denies dysuria, burning w/ urination, frequency/urgency. Denies new onset urinary or bowel incontinence. MSK: Pt denies myalgia, loss of strength or function in extremities. Neuro: Pt denies new onset weakness, paresthesias. (Brown Arnold) - Related Data Home Medications Medication Instructions Recorded Confirmed FLUoxetine HCL [PROzac] 20 mg PO DAILY 12/19/14 10/24/18 Montelukast Sodium [Singulair] 10 mg PO DAILY 08/24/17 10/24/18 Omeprazole 40 mg PO DAILY 08/24/17 10/24/18 Albuterol Sulfate [Proair Hfa] 2 puff INHALATION RT-Q4H 03/06/18 10/24/18 Furosemide [Lasix] 20 mg PO DAILY 03/06/18 10/24/18 Albuterol Nebulized [Ventolin 2.5 mg INHALATION RT-QID 10/24/18 10/24/18 Nebulized] Aspirin 81 mg PO DAILY 10/24/18 10/24/18 HYDROcodone/APAP 5-325MG [[place] 1 tab PO TID PRN 10/24/18 10/24/18 5-325] Ipratropium Nebulized [Atrovent 0.5 mg INHALATION RT-QID 10/24/18 10/24/18 Nebulized 0.2 MG/ML] Propranolol [Inderal] 10 mg PO TID 10/24/18 10/24/18 Previous Rx's Medication Instructions Recorded ALPRAZolam [Xanax] 0.5 mg PO TID PRN #10 tab 03/08/18 Albuterol Inhaler [Ventolin Hfa 1 - 2 puff INHALATION Q4-6H PRN #1 12/23/18 Inhaler] inhaler Allergies Allergy/AdvReac Type Severity Reaction Status Date / Time ibuprofen Allergy Unknown Verified 12/23/18 01:32 Iodinated Contrast- Oral and Allergy Unknown Verified 12/23/18 01:32 IV Dye iodine Allergy Rash/Hives Verified 12/23/18 01:32 lorazepam [From Ativan] Allergy Hallucinati Verified 12/23/18 01:32 ons Sulfa (Sulfonamide Allergy Rash/Hives Verified 12/23/18 01:32 Antibiotics) topiramate [From Topamax] Allergy Unknown Verified 12/23/18 01:32 prednisone AdvReac DIZINESS Verified 12/23/18 01:32 zolpidem tartrate AdvReac Hallucinati Verified 12/23/18 01:32 [From Ambien] ons Review of Systems ROS Other: All systems not noted in ROS Statement are negative. <Viola Kelly P - Last Filed: 12/23/18 01:28> ROS Other: All systems not noted in ROS Statement are negative. <Brown Arnold - Last Filed: 12/23/18 03:28> ROS Statement: Those systems with pertinent positive or pertinent negative responses have been documented in the HPI. Past Medical History Past Medical History: Atrial Fibrillation, COPD, CVA/TIA, Eye Disorder, GE RD/Reflux, Hyperlipidemia, Pneumonia Additional Past Medical History / Comment(s): Chronic atrial fibrillation per PMH but pt has no recollection of this, bronchiectasis, essential tremors, previous TIA, chronic lumbar back pain, past 6 months R shoulder/cervical pain, balance difficulty with falls, occasional low urinary output and uses lasix prn for this, bilateral varicose veins, dysphagia-able to take pills one at a time with water, small hiatal hernia, restless leg syndrome, seasonal ALLERGIES, History of Any Multi-Drug Resistant Organisms: None Reported Past Surgical History: Hysterectomy Additional Past Surgical History / Comment(s): 11/27/15 EGD with bx, bilateral cataracts removed with lens implants, colonoscopy with 1 benign polypectomy. Past Anesthesia/Blood Transfusion Reactions: No Reported Reaction Past Psychological History: Anxiety, Depression Additional Psychological History / Comment(s): Pt recently completed receiving home care thru [facility]. Pt's son, Sonu lives with her. She uses a cane or walker to ambulate. She drives short distances. Her blessing, Rita comes and cleans home on occasion. Sonu helps in the home as well. Family or friends drive pt most times. She has home O2 and a nebulizer. She states she prepares food or her daughter will. Smoking Status: Never smoker Past Alcohol Use History: None Reported Additional Past Alcohol Use History / Comment(s): Pt states she started smoking in her early 20's. She quit for several yrs, during her pregnancies and when her children were young. She quit for good in 2015. Past Drug Use History: None Reported - Past Family History Father Family Medical History: Cancer Additional Family Medical History / Comment(s): Pt thinks father might have from stomach cancer. She was 2 yrs old when he . Sister(s) Family Medical History: Cancer Additional Family Medical History / Comment(s): Half sister with brain cancer. Mother Family Medical History: Dementia Additional Family Medical History / Comment(s): Mother had gallstones and a partial thyroidectomy for noncancerous reasons. <Viola Kelly P - Last Filed: 12/23/18 01:28> General Exam <Brown Arnold - Last Filed: 12/23/18 03:28> - General Exam Comments Initial Comments: Constitutional: NAD, AOX3, Pt has pleasant affect. HEENT: NC/AT, trachea midline, neck supple, no lymphadenopathy. Posterior pharynx non erythematous, without exudates. External ears appear normal, without discharge. Mucous membranes moist. Eyes PERRLA, EOM intact. There is no scleral icterus. No pallor noted. Cardiopulmonary: RRR, no murmurs, rubs or gallops, no JVD noted. Lungs CTAB in anterior and posterior palencia. No peripheral edema. Abdominal exam: Abdomen soft and non-distended. Abdomen non-tender to palpation in all 4 quadrants. Bowel sounds active in LLQ. No hepatosplenomegaly. No ecchymosis Neuro: CN II-XII grossly intact. No nuchal rigidity. No raccon eyes, no corbin sign, no hemotympanum. No cervical spinal tenderness. MSK: No posterior calf tenderness bilaterally, homans sign negative bilaterally. Posterior tibialis and radial pulse +2 bilaterally. Sensation intact in upper and lower extremities. Full active ROM in upper and lower extremities, 5/5 stregnth. (Brown Arnold) Course Vital Signs 12/23/18 12/23/18 12/23/18 01:25 01:32 02:14 Temperature 97.7 F Pulse Rate 57 L 60 Respiratory 18 18 Rate Blood Pressure 140/66 O2 Sat by Pulse 97 Oximetry 12/23/18 02:34 Temperature Pulse Rate 64 Respiratory Rate Blood Pressure O2 Sat by Pulse Oximetry Medical Decision Making - Lab Data Result diagrams: 12/23/18 02:12 12/23/18 02:12 - EKG Data -: EKG Interpreted by Me (and Dr. Kelly ) <Brown Arnold - Last Filed: 12/23/18 03:28> - Medical Decision Making 78-year-old female patient past medical history cystoscopy. The, on home oxygen presents to ED with chief complaint of CABG exacerbation. Patient reports that she went outside today and was exposed to pollen, this caused her to coughing, short of breath. Patient used an inhaler at home with minimal improvement. Patient then called EMS. Patient was administered 125 Solu-Medrol as well as updrafts enroute. Patient denies any chest pain. Upon arrival patient symptoms are significantly improved. Pt VSS, afebrile. Physical exam did not display acute pathology. O2 investigations non-impressive. EKG acting for acute ischemia. Patient reports that she has adverse reactions to steroids. Offered patient admission to hospital. Patient states that she would. We discharge, she is currently asymptomatic, will use albuterol inhaler as needed home. Pat ient will f/u with PCP on monday and will return to ER if condition worsens. Case discussed with Dr. Kelly. (Brown Arnold) - Lab Data Lab Results 12/23/18 12/23/18 12/23/18 Range/Units 02:12 02:12 02:12 WBC 6.1 (3.8-10.6) k/uL RBC 4.20 (3.80-5.40) m/uL Hgb 12.5 (11.4-16.0) gm/dL Hct 37.2 (34.0-46.0) % MCV 88.7 (80.0-100.0) fL MCH 29.8 (25.0-35.0) pg MCHC 33.6 (31.0-37.0) g/dL RDW 15.5 (11.5-15.5) % Plt Count 264 (150-450) k/uL Neutrophils % 56 % Lymphocytes % 29 % Monocytes % 7 % Eosinophils % 6 % Basophils % 0 % Neutrophils # 3.4 (1.3-7.7) k/uL Lymphocytes # 1.8 (1.0-4.8) k/uL Monocytes # 0.4 (0-1.0) k/uL Eosinophils # 0.3 (0-0.7) k/uL Basophils # 0.0 (0-0.2) k/uL PT 10.1 (9.0-12.0) sec INR 0.9 (<1.2) APTT 24.0 (22.0-30.0) sec Sodium 141 (137-145) mmol/L Potassium 3.5 (3.5-5.1) mmol/L Chloride 104 (98-107) mmol/L Carbon Dioxide 29 (22-30) mmol/L Anion Gap 8 mmol/L BUN 12 (7-17) mg/dL Creatinine 0.75 (0.52-1.04) mg/dL Est GFR (CKD-EPI)AfAm 88 (>60 ml/min/1.73 sqM) Est GFR (CKD-EPI)NonAf 77 (>60 ml/min/1.73 sqM) Glucose 110 H (74-99) mg/dL Calcium 9.1 (8.4-10.2) mg/dL Total Bilirubin 0.8 (0.2-1.3) mg/dL AST 17 (14-36) U/L ALT 11 (9-52) U/L Alkaline Phosphatase 74 (38-126) U/L Troponin I (0.000-0.034) ng/mL Total Protein 6.5 (6.3-8.2) g/dL Albumin 3.9 (3.5-5.0) g/dL 12/23/18 Range/Units 02:12 WBC (3.8-10.6) k/uL RBC (3.80-5.40) m/uL Hgb (11.4-16.0) gm/dL Hct (34.0-46.0) % MCV (80.0-100.0) fL MCH (25.0-35.0) pg MCHC (31.0-37.0) g/dL RDW (11.5-15.5) % Plt Count (150-450) k/uL Neutrophils % % Lymphocytes % % Monocytes % % Eosinophils % % Basophils % % Neutrophils # (1.3-7.7) k/uL Lymphocytes # (1.0-4.8) k/uL Monocytes # (0-1.0) k/uL Eosinophils # (0-0.7) k/uL Basophils # (0-0.2) k/uL PT (9.0-12.0) sec INR (<1.2) APTT (22.0-30.0) sec Sodium (137-145) mmol/L Potassium (3.5-5.1) mmol/L Chloride (98-107) mmol/L Carbon Dioxide (22-30) mmol/L Anion Gap mmol/L BUN (7-17) mg/dL Creatinine (0.52-1.04) mg/dL Est GFR (CKD-EPI)AfAm (>60 ml/min/1.73 sqM) Est GFR (CKD-EPI)NonAf (>60 ml/min/1.73 sqM) Glucose (74-99) mg/dL Calcium (8.4-10.2) mg/dL Total Bilirubin (0.2-1.3) mg/dL AST (14-36) U/L ALT (9-52) U/L Alkaline Phosphatase (38-126) U/L Troponin I <0.012 (0.000-0.034) ng/mL Total Protein (6.3-8.2) g/dL Albumin (3.5-5.0) g/dL - EKG Data EKG Comments: Ventricular rate 59, MA interval 138, QRS 68, QTC is QTC [id number]. Sinus bradycardia, [place] mildly, consider inferior ischemia. No concern for acute ischemia. (Brown Arnold) Disposition <Viola Kelly - Last Filed: 12/23/18 01:28> Is patient prescribed a controlled substance at d/c from ED?: No <Brown Arnold - Last Filed: 12/23/18 03:28> Clinical Impression: COPD exacerbation Disposition: HOME SELF-CARE Condition: Stable Instructions (If sedation given, give patient instructions): COPD (Chronic Obstructive Pulmonary Disease) (ED) Additional Instructions: Patient to adhere to previously discussed treatment plan and will take medication(s) as directed. Patient to follow up with PCP in 1-2 days. Patient to return to ED if symptoms do not improve. Follow-up with primary care provider tomorrow, return to ER if condition worsens. Prescriptions: Albuterol Inhaler [Ventolin Hfa Inhaler] 1 - 2 puff INHALATION Q4-6H PRN #1 i nhaler PRN Reason: Cough Referrals: Pablo De La Garza DO [Primary Care Provider] - 1-2 days
[2018-12-23 01:31] VITALS: RESP 18
[2018-12-23] MEDS ORDERED: IPRATROPIUM-ALBUTEROL 3 ML NEB INHALATION STA (01:41)
[2018-12-23 02:26] LABS: Basophils % (A) 0 %; Eosinophils # (A) 0.3 k/uL (0-0.7); Eosinophils % (A) 6 %; HCT 37.2 % (34.0-46.0); HGB 12.5 gm/dL (11.4-16.0); Lymphocytes # (A) 1.8 k/uL (1.0-4.8); Lymphocytes % (A) 29 %; MCH 29.8 pg (25.0-35.0); MCHC 33.6 g/dL (31.0-37.0); MCV 88.7 fL (80.0-100.0); Mean Platelet Volume 7.3; Monocytes # (A) 0.4 k/uL (0-1.0); Monocytes % (A) 7 %; Neutrophils # (A) 3.4 k/uL (1.3-7.7); Neutrophils % (A) 56 %; Platelet Count 264 k/uL (150-450); RDW 15.5 % (11.5-15.5); WBC 6.1 k/uL (3.8-10.6)
[2018-12-23 02:28] LABS: Albumin 3.9 g/dL (3.5-5.0); Calcium 9.1 mg/dL (8.4-10.2); Potassium 3.5 mmol/L (3.5-5.1); Total Bilirubin 0.8 mg/dL (0.2-1.3); Total Protein 6.5 g/dL (6.3-8.2)
--- NOTE | 2018-12-23 02:29 | XR ---
EXAM: XR Chest, 2 Views CLINICAL HISTORY: difficulty breathing TECHNIQUE: Frontal and lateral views of the chest. COMPARISON: 10/24/18 FINDINGS: Lungs: COPD. Pleural space: Unremarkable. No pneumothorax. Heart: Unremarkable. No cardiomegaly. Mediastinum: Unremarkable. Bones/joints: Nonunion fracture proximal humeral diaphysis with 1.3 cm displacement medially is unchanged. Osteopenia. IMPRESSION: No acute findings or substantial change
[2018-12-23 02:30] LABS: INR 0.9 (<1.2); Prothrombin Time 10.1 sec (9.0-12.0)
[2018-12-23 03:53] VITALS: BP 129/67; PULSE 62; TEMP 98.2
== END 2018-12-23 03:45 | disposition home or self-care (01) ==
LOC: EC 01:14
DX: J44.1 Chronic obstructive pulmonary disease with (acute) exacerbation (principal); K21.9 Gastro-esophageal reflux disease without esophagitis; G89.29 Other chronic pain; F32.9 Major depressive disorder, single episode, unspecified; F41.9 Anxiety disorder, unspecified; Z87.891 Personal history of nicotine dependence; Z88.2 Allergy status to sulfonamides; Z88.6 Allergy status to analgesic agent; Z88.8 Allergy status to other drugs, medicaments and biological substances; Z91.041 Radiographic dye allergy status; Z91.048 Other nonmedicinal substance allergy status; Z79.82 Long term (current) use of aspirin; Z79.899 Other long term (current) drug therapy; Z86.73 Personal history of transient ischemic attack (TIA), and cerebral infarction without residual deficits; Z87.01 Personal history of pneumonia (recurrent); Z99.81 Dependence on supplemental oxygen; Z95.1 Presence of aortocoronary bypass graft
CPT/HCPCS: 36415; 71046; 80053; 84484; 85025; 85610; 85730; 93005; 94640; 99285

== ENCOUNTER 2019-01-29 03:06 | Emergency (ER) | payer MEDICARE ==
[2019-01-29 03:14] VITALS: TEMP 97.7
[2019-01-29] MEDS ORDERED: IPRATROPIUM-ALBUTEROL 3 ML NEB INHALATION STA (03:26)
--- NOTE | 2019-01-29 03:27 | ED ---
SOB HPI - General Chief Complaint: Shortness of Breath Stated Complaint: BARBIE Time Seen by Provider: 01/29/19 03:15 Source: patient, EMS Mode of arrival: EMS - History of Present Illness Initial Comments: This patient is 78-year-old woman with history of COPD, who presents with co mplaint of shortness of breath. The patient states that she had gone to bed around 10:30 PM. Around 12:30 this morning she was awakened by feeling short of breath. She states he also was occasional cough. She states that she does use oxygen at home, and she had been sleeping and it chair or on her couch recently because she'll get short of breath at night. She states that when she woke tonight she was not able to catch her breath. She has not had fever or chills. Cough is not productive. No chest pain. No diaphoresis. No change in urination or bowel movements. MD Complaint: shortness of breath, cough Onset/Timin -: hour(s) Consistency: constant Improves With: nothing Worsens With: nothing Known History Of: COPD Associated Symptoms: denies other symptoms - Related Data Home Medications Medication Instructions Recorded Confirmed FLUoxetine HCL [PROzac] 20 mg PO DAILY 12/19/14 10/24/18 Montelukast Sodium [Singulair] 10 mg PO DAILY 08/24/17 10/24/18 Omeprazole 40 mg PO DAILY 08/24/17 10/24/18 Albuterol Sulfate [Proair Hfa] 2 puff INHALATION RT-Q4H 03/06/18 10/24/18 Furosemide [Lasix] 20 mg PO DAILY 03/06/18 10/24/18 Albuterol Nebulized [Ventolin 2.5 mg INHALATION RT-QID 10/24/18 10/24/18 Nebulized] Aspirin 81 mg PO DAILY 10/24/18 10/24/18 HYDROcodone/APAP 5-325MG [[place] 1 tab PO TID PRN 10/24/18 10/24/18 5-325] Ipratropium Nebulized [Atrovent 0.5 mg INHALATION RT-QID 10/24/18 10/24/18 Nebulized 0.2 MG/ML] Propranolol [Inderal] 10 mg PO TID 10/24/18 10/24/18 Previous Rx's Medication Instructions Recorded ALPRAZolam [Xanax] 0.5 mg PO TID PRN #10 tab 03/08/18 Albuterol Inhaler [Ventolin Hfa 1 - 2 puff INHALATION Q4-6H PRN #1 12/23/18 Inhaler] inhaler Allergies Allergy/AdvReac Type Severity Reaction Status Date / Time ibuprofen Allergy Unknown Verified 12/23/18 01:32 Iodinated Contrast Media Allergy Unknown Verified 12/23/18 01:32 [Iodinated Contrast- Oral and IV Dye] iodine Allergy Rash/Hives Verified 12/23/18 01:32 lorazepam [From Ativan] Allergy Hallucinati Verified 12/23/18 01:32 ons Sulfa (Sulfonamide Allergy Rash/Hives Verified 12/23/18 01:32 Antibiotics) topiramate [From Topamax] Allergy Unknown Verified 12/23/18 01:32 prednisone AdvReac DIZINESS Verified 12/23/18 01:32 zolpidem tartrate AdvReac Hallucinati Verified 12/23/18 01:32 [From Ambien] ons Review of Systems ROS Statement: Those systems with pertinent positive or pertinent negative responses have been documented in the HPI. ROS Other: All systems not noted in ROS Statement are negative. Constitutional: Denies: fever, chills Respiratory: Reports: cough, dyspnea. Denies: wheezes, hemoptysis Cardiovascular: Denies: chest pain, palpitations, dyspnea on exertion, orthopnea, edema Gastrointestinal: Denies: abdominal pain, nausea, vomiting, diarrhea, melena, hematochezia Genitourinary: Denies: dysuria, hematuria Musculoskeletal: Denies: back pain Skin: Denies: rash Neurological: Denies: headache, weakness Past Medical History Past Medical History: Atrial Fibrillation, COPD, CVA/TIA, Eye Disorder, GERD/Reflux, Hyperlipidemia, Pneumonia Additional Past Medical History / Comment(s): Chronic atrial fibrillation per PMH but pt has no recollection of this, bronchiectasis, essential tremors, previous TIA, chronic lumbar back pain, past 6 months R shoulder/cervical pain, balance difficulty with falls, occasional low urinary output and uses lasix prn for this, bilateral varicose veins, dysphagia-able to take pills one at a time with water, small hiatal hernia, restless leg syndrome, seasonal ALLERGIES, History of Any Multi-Drug Resistant Organisms: None Reported Past Surgical History: Hysterectomy Additional Past Surgical History / Comment(s): 11/27/15 EGD with bx, bilateral cataracts removed with lens implants, colonoscopy with 1 benign polypectomy. Past Anesthesia/Blood Transfusion Reactions: No Reported Reaction Past Psychological History: Anxiety, Depression Smoking Status: Never smoker Past Alcohol Use History: None Reported Past Drug Use History: None Reported - Past Family History Father Family Medical History: Cancer Additional Family Medical History / Comment(s): Pt thinks father might have from stomach cancer. She was 2 yrs old when he . Sister(s) Family Medical History: Cancer Additional Family Medical History / Comment(s): Half sister with brain cancer. Mother Family Medical History: Dementia Additional Family Medical History / Comment(s): Mother had gallstones and a partial thyroidectomy for noncancerous reasons. General Exam General appearance: alert, in no apparent distress Head exam: Present: atraumatic, normocephalic Eye exam: Present: normal appearance. Absent: scleral icterus, conjunctival injection ENT exam: Present: normal oropharynx Respiratory exam: Present: wheezes. Absent: respiratory distress, rales, rhonchi, stridor, accessory muscle use, decreased breath sounds Cardiovascular Exam: Present: regular rate, normal rhythm, normal heart sounds. Absent: systolic murmur, diastolic murmur, rubs, gallop GI/Abdominal exam: Present: soft. Absent: distended, tenderness, guarding, rebound Extremities exam: Present: normal inspection, normal capillary refill. Absent: pedal edema, calf tenderness Back exam: Present: normal inspection. Absent: CVA tenderness (R), CVA tenderness (L) Neurological exam: Present: alert Skin exam: Present: warm, dry, intact, normal color. Absent: rash Course Vital Signs 01/29/19 01/29/19 01/29/19 03:07 03:14 03:53 Temperature 97.7 F Pulse Rate 57 L 53 L Respiratory 18 20 Rate Blood Pressure 144/61 O2 Sat by Pulse 98 Oximetry 01/29/19 01/29/19 01/29/19 04:01 06:04 06:11 Temperature Pulse Rate 53 L 55 L 55 L Respiratory 18 Rate Blood Pressure 138/67 O2 Sat by Pulse 98 Oximetry 01/29/19 06:12 Temperature Pulse Rate 62 Respiratory Rate Blood Pressure O2 Sat by Pulse Oximetry Medical Decision Making - Lab Data Result diagrams: 01/29/19 03:15 01/29/19 03:15 Lab Results 01/29/19 01/29/19 01/29/19 Range/Units 03:15 03:15 03:15 WBC 7.1 (3.8-10.6) k/uL RBC 4.03 (3.80-5.40) m/uL Hgb 12.3 (11.4-16.0) gm/dL Hct 36.4 (34.0-46.0) % MCV 90.3 (80.0-100.0) fL MCH 30.6 (25.0-35.0) pg MCHC 33.9 (31.0-37.0) g/dL RDW 13.5 (11.5-15.5) % Plt Count 249 (150-450) k/uL Neutrophils % 43 % Lymphocytes % 40 % Monocytes % 6 % Eosinophils % 7 % Basophils % 1 % Neutrophils # 3.1 (1.3-7.7) k/uL Lymphocytes # 2.8 (1.0-4.8) k/uL Monocytes # 0.5 (0-1.0) k/uL Eosinophils # 0.5 (0-0.7) k/uL Basophils # 0.0 (0-0.2) k/uL PT 10.0 (9.0-12.0) sec INR 0.9 (<1.2) APTT 25.4 (22.0-30.0) sec D-Dimer 0.64 H (<0.60) mg/L FEU Sodium 137 (137-145) mmol/L Potassium 3.5 (3.5-5.1) mmol/L Chloride 105 (98-107) mmol/L Carbon Dioxide 27 (22-30) mmol/L Anion Gap 5 mmol/L BUN 14 (7-17) mg/dL Creatinine 0.76 (0.52-1.04) mg/dL Est GFR (CKD-EPI)AfAm 87 (>60 ml/min/1.73 sqM) Est GFR (CKD-EPI)NonAf 76 (>60 ml/min/1.73 sqM) Glucose 93 (74-99) mg/dL Calcium 8.7 (8.4-10.2) mg/dL Magnesium 2.0 (1.6-2.3) mg/dL Total Bilirubin 0.3 (0.2-1.3) mg/dL AST 16 (14-36) U/L ALT 13 (9-52) U/L Alkaline Phosphatase 65 (38-126) U/L Troponin I (0.000-0.034) ng/mL NT-Pro-B Natriuret Pep pg/mL Total Protein 5.8 L (6.3-8.2) g/dL Albumin 3.4 L (3.5-5.0) g/dL Urine Color Urine Appearance (Clear) Urine pH (5.0-8.0) Ur Specific [place] (1.001-1.035) Urine Protein (Negative) Urine Glucose (UA) (Negative) Urine Ketones (Negative) Urine Blood (Negative) Urine Nitrite (Negative) Urine Bilirubin (Negative) Urine Urobilinogen (<2.0) mg/dL Ur Leukocyte Esterase (Negative) Urine RBC (0-5) /hpf Urine WBC (0-5) /hpf Ur Squamous Epith Cells (0-4) /hpf Urine Bacteria (None) /hpf Urine Mucus (None) /hpf 01/29/19 01/29/19 01/29/19 Range/Units 03:15 03:15 04:23 WBC (3.8-10.6) k/uL RBC (3.80-5.40) m/uL Hgb (11.4-16.0) gm/dL Hct (34.0-46.0) % MCV (80.0-100.0) fL MCH (25.0-35.0) pg MCHC (31.0-37.0) g/dL RDW (11.5-15.5) % Plt Count (150-450) k/uL Neutrophils % % Lymphocytes % % Monocytes % % Eosinophils % % Basophils % % Neutrophils # (1.3-7.7) k/uL Lymphocytes # (1.0-4.8) k/uL Monocytes # (0-1.0) k/uL Eosinophils # (0-0.7) k/uL Basophils # (0-0.2) k/uL PT (9.0-12.0) sec INR (<1.2) APTT (22.0-30.0) sec D-Dimer (<0.60) mg/L FEU Sodium (137-145) mmol/L Potassium (3.5-5.1) mmol/L Chloride (98-107) mmol/L Carbon Dioxide (22-30) mmol/L Anion Gap mmol/L BUN (7-17) mg/dL Creatinine (0.52-1.04) mg/dL Est GFR (CKD-EPI)AfAm (>60 ml/min/1.73 sqM) Est GFR (CKD-EPI)NonAf (>60 ml/min/1.73 sqM) Glucose (74-99) mg/dL Calcium (8.4-10.2) mg/dL Magnesium (1.6-2.3) mg/dL Total Bilirubin (0.2-1.3) mg/dL AST (14-36) U/L ALT (9-52) U/L Alkaline Phosphatase (38-126) U/L Troponin I <0.012 (0.000-0.034) ng/mL NT-Pro-B Natriuret Pep 194 pg/mL Total Protein (6.3-8.2) g/dL Albumin (3.5-5.0) g/dL Urine Color Light Yellow Urine Appearance Clear (Clear) Urine pH 5.5 (5.0-8.0) Ur Specific [place] 1.006 (1.001-1.035) Urine Protein Negative (Negative) Urine Glucose (UA) Negative (Negative) Urine Ketones Negative (Negative) Urine Blood Small H (Negative) Urine Nitrite Negative (Negative) Urine Bilirubin Negative (Negative) Urine Urobilinogen <2.0 (<2.0) mg/dL Ur Leukocyte Esterase Negative (Negative) Urine RBC 5 (0-5) /hpf Urine WBC <1 (0-5) /hpf Ur Squamous Epith Cells 2 (0-4) /hpf Urine Bacteria Rare H (None) /hpf Urine Mucus Rare H (None) /hpf - EKG Data -: EKG Interpreted by Me EKG shows normal: sinus rhythm, axis (Normal), intervals (Normal), QRS complexes (Normal), ST-T waves (Normal) Rate: bradycardia (Rate 56 bpm) Disposition Clinical Impression: COPD exacerbation Disposition: HOME SELF-CARE Condition: Fair Instructions (If sedation given, give patient instructions): COPD (Chronic Obstructive Pulmonary Disease) (ED) Is patient prescribed a controlled substance at d/c from ED?: No Referrals: Pablo De La Garza DO [Primary Care Provider] - 1-2 days
--- NOTE | 2019-01-29 03:40 | XR ---
EXAMINATION TYPE: XR chest 2V DATE OF EXAM: 01/29/2019 COMPARISON: 12/23/2018 HISTORY: Difficulty breathing TECHNIQUE: Frontal and lateral views of the chest are obtained. FINDINGS: There is no heart failure. There is some mild linear density in the right middle lobe. Lef t lung is clear. Heart is shifted to the right side. There are chest leads. There is old left humeral neck fracture. Thoracic spine is intact. IMPRESSION: There is some volume loss on the right side with shift of heart to the right side. There is some right middle lobe and right lower lobe atelectasis increased compared to last exam. No heart failure.
[2019-01-29 03:47] LABS: Basophils % (A) 1 %; Eosinophils # (A) 0.5 k/uL (0-0.7); Eosinophils % (A) 7 %; HCT 36.4 % (34.0-46.0); HGB 12.3 gm/dL (11.4-16.0); Lymphocytes # (A) 2.8 k/uL (1.0-4.8); Lymphocytes % (A) 40 %; MCH 30.6 pg (25.0-35.0); MCHC 33.9 g/dL (31.0-37.0); MCV 90.3 fL (80.0-100.0); Mean Platelet Volume 6.2; Monocytes # (A) 0.5 k/uL (0-1.0); Monocytes % (A) 6 %; Neutrophils # (A) 3.1 k/uL (1.3-7.7); Neutrophils % (A) 43 %; Platelet Count 249 k/uL (150-450); RBC 4.03 m/uL (3.80-5.40); RDW 13.5 % (11.5-15.5); WBC 7.1 k/uL (3.8-10.6)
[2019-01-29 04:01] LABS: Albumin 3.4 g/dL (3.5-5.0); Calcium 8.7 mg/dL (8.4-10.2); Potassium 3.5 mmol/L (3.5-5.1); Total Bilirubin 0.3 mg/dL (0.2-1.3); Total Protein 5.8 g/dL (6.3-8.2)
[2019-01-29 04:06] LABS: INR 0.9 (<1.2); Partial Thromboplastin Time 25.4 sec (22.0-30.0)
[2019-01-29 04:29] LABS: D-Dimer 0.64 mg/L FEU (<0.60)
[2019-01-29 04:51] LABS: Appearance,Urine Clear (Clear); Bacteria,Urine Rare /hpf; Bilirubin,Urine Negative (Negative); Blood,Urine Small (Negative); Color,Urine Light Yellow; Glucose,Urine (UA) Negative (Negative); Ketones,Urine Negative (Negative); Leukocyte Esterase,Urine Negative (Negative); Mucus,Urine Rare /hpf; Nitrite,Urine Negative (Negative); PH, Urine 5.5 (5.0-8.0); Protein,Urine Negative (Negative); RBC,Urine 5 /hpf (0-5); Specific Gravity,Urine 1.006 (1.001-1.035); Squamous Epithelial Cell,Urine 2 /hpf (0-4); Urobilinogen,Urine <2.0 mg/dL (<2.0); WBC,Urine <1 /hpf (0-5)
[2019-01-29] MEDS ORDERED: ALBUTEROL NEBULIZED 2.5 MG/3 ML INHALATION STA (05:13)
[2019-01-29 06:13] VITALS: PULSE 62
[2019-01-29 06:14] VITALS: BP 138/67; RESP 18
== END 2019-01-29 06:35 | disposition home or self-care (01) ==
LOC: EC 03:06
DX: J44.1 Chronic obstructive pulmonary disease with (acute) exacerbation (principal); K21.9 Gastro-esophageal reflux disease without esophagitis; F41.9 Anxiety disorder, unspecified; F32.9 Major depressive disorder, single episode, unspecified; I48.20 Chronic atrial fibrillation, unspecified; Z79.82 Long term (current) use of aspirin; Z79.899 Other long term (current) drug therapy; Z88.6 Allergy status to analgesic agent; Z91.041 Radiographic dye allergy status; Z91.048 Other nonmedicinal substance allergy status; Z88.8 Allergy status to other drugs, medicaments and biological substances; Z88.2 Allergy status to sulfonamides; Z86.73 Personal history of transient ischemic attack (TIA), and cerebral infarction without residual deficits
CPT/HCPCS: 36415; 71046; 80053; 81001; 83735; 83880; 84484; 85025; 85379; 85610; 85730; 94640; 99285

== ENCOUNTER → 2019-02-18 | Outpatient (CLI) | payer MEDICARE ==
--- NOTE | 2019-02-18 15:57 | XR ---
Lumbosacral spine HISTORY: Low back pain, trauma 5 views of the lumbosacral spine correlated to prior exam 01/28/2013 Superior endplate depression at L2 is again noted. Bone mineralization is reduced which could limit s ensitivity. No evident spondylolysis or spondylolisthesis. Loss of disc height at multiple interverte bral levels is present. There is vacuum phenomenon present at L4-5 and L5-S1, loss of disc height has progressed in the interval at these levels. Sclerosis present in the posterior elements of the lower lumbar spine. Superior endplate depression suspected at L5 is mild, there is multilevel spondylosis. IMPRESSION: Osteopenia porosis, degenerative disc disease, facet arthropathy, osteoporotic compressio n deformities.
--- NOTE | 2019-02-18 16:01 | XR ---
I, coccyx HISTORY: Trauma and pain 3 views of the sacrum and coccyx Question some mild superior depression of the L5 vertebral body. Degenerative disc changes are noted in the lower lumbar spine. Low bone mineralization could limit sensitivity for evaluation. IMPRESSION: Superior endplate depression suspected L5 of questionable age be present, bone scan or MR I could be performed for increased sensitivity. No acute fracture or dislocation of the sacrum or geno cyx is evident. Low bone mineralization could limit evaluation.
== END | disposition home or self-care (01) ==
LOC: RADXRYALE 14:15
PROVIDERS: ATTEND Physician Assistant Medical
DX: M51.37 Other intervertebral disc degeneration, lumbosacral region (principal); M46.97 Unspecified inflammatory spondylopathy, lumbosacral region; M43.8X7 Other specified deforming dorsopathies, lumbosacral region; M53.3 Sacrococcygeal disorders, not elsewhere classified
CPT/HCPCS: 72110; 72220

== ENCOUNTER 2019-03-18 04:51 | Emergency (ER) | payer MEDICARE ==
[2019-03-18 04:55] VITALS: RESP 20
[2019-03-18] MEDS ORDERED: SODIUM CHLORIDE 0.9% 500 ML 500 ML IV STA (05:08)
[2019-03-18] MEDS ORDERED: IPRATROPIUM-ALBUTEROL 3 ML NEB INHALATION STA (05:08)
--- NOTE | 2019-03-18 05:09 | ED ---
General Adult HPI - General Chief complaint: Shortness of Breath Stated complaint: SOB Time Seen by Provider: 03/18/19 04:54 Source: patient Mode of arrival: ambulatory Limitations: no limitations - History of Present Illness Initial comments: Angel is a pleasant 78 yo female is in the emergency department today via EMS for evaluation of not feeling well. Patient reports she has not been feeling well for a couple of days, she states that tonight she was unable to sleep because she didn't feel great. She states she's had a minimally productive cou gh. She denies any chest pain palpitations or shortness of breath. She reports she will feel like she is been eating or drinking well for a couple of days. Patient reports she just generally doesn't feel well. - Related Data Home Medications Medication Instructions Recorded Confirmed FLUoxetine HCL [PROzac] 20 mg PO DAILY 12/19/14 10/24/18 Montelukast Sodium [Singulair] 10 mg PO DAILY 08/24/17 10/24/18 Omeprazole 40 mg PO DAILY 08/24/17 10/24/18 Albuterol Sulfate [Proair Hfa] 2 puff INHALATION RT-Q4H 03/06/18 10/24/18 Furosemide [Lasix] 20 mg PO DAILY 03/06/18 10/24/18 Albuterol Nebulized [Ventolin 2.5 mg INHALATION RT-QID 10/24/18 10/24/18 Nebulized] Aspirin 81 mg PO DAILY 10/24/18 10/24/18 HYDROcodone/APAP 5-325MG [[place] 1 tab PO TID PRN 10/24/18 10/24/18 5-325] Ipratropium Nebulized [Atrovent 0.5 mg INHALATION RT-QID 10/24/18 10/24/18 Nebulized 0.2 MG/ML] Propranolol [Inderal] 10 mg PO TID 10/24/18 10/24/18 Previous Rx's Medication Instructions Recorded ALPRAZolam [Xanax] 0.5 mg PO TID PRN #10 tab 03/08/18 Albuterol Inhaler [Ventolin Hfa 1 - 2 puff INHALATION Q4-6H PRN #1 12/23/18 Inhaler] inhaler Allergies Allergy/AdvReac Type Severity Reaction Status Date / Time ibuprofen Allergy Unknown Verified 03/18/19 04:56 Iodinated Contrast Media Allergy Unknown Verified 03/18/19 04:56 [Iodinated Contrast- Oral and IV Dye] iodine Allergy Rash/Hives Verified 03/18/19 04:56 lorazepam [From Ativan] Allergy Hallucinati Verified 03/18/19 04:56 ons Sulfa (Sulfonamide Allergy Rash/Hives Verified 03/18/19 04:56 Antibiotics) topiramate [From Topamax] Allergy Unknown Verified 03/18/19 04:56 prednisone AdvReac DIZINESS Verified 03/18/19 04:56 zolpidem tartrate AdvReac Hallucinati Verified 03/18/19 04:56 [From Ambien] ons Review of Systems ROS Statement: Those systems with pertinent positive or pertinent negative responses have been documented in the HPI. ROS Other: All systems not noted in ROS Statement are negative. Past Medical History Past Medical History: Atrial Fibrillation, COPD, CVA/TIA, Eye Disorder, GERD/Reflux, Hyperlipidemia, Pneumonia Additional Past Medical History / Comment(s): Chronic atrial fibrillation per PMH but pt has no recollection of this, bronchiectasis, essential tremors, previous TIA, chronic lumbar back pain, past 6 months R shoulder/cervical pain, balance difficulty with falls, occasional low urinary output and uses lasix prn for this, bilateral varicose veins, dysphagia-able to take pills one at a time with water, small hiatal hernia, restless leg syndrome, seasonal ALLERGIES, History of Any Multi-Drug Resistant Organisms: None Reported Past Surgical History: Hysterectomy Additional Past Surgical History / Comment(s): 11/27/15 EGD with bx, bilateral cataracts removed with lens implants, colonoscopy with 1 benign polypectomy. Past Anesthesia/Blood Transfusion Reactions: No Reported Reaction Past Psychological History: Anxiety, Depression Smoking Status: Never smoker Past Alcohol Use History: None Reported Past Drug Use History: None Reported - Past Family History Father Family Medical History: Cancer Additional Family Medical History / Comment(s): Pt thinks father might have from stomach cancer. She was 2 yrs old when he . Sister(s) Family Medical History: Cancer Additional Family Medical History / Comment(s): Half sister with brain cancer. Mother Family Medical History: Dementia Additional Family Medical History / Comment(s): Mother had gallstones and a partial thyroidectomy for noncancerous reasons. General Exam - General Exam Comments Initial Comments: Physical Exam GENERAL: Patient is well-developed and well-nourished. Patient is nontoxic and well- hydrated and is in no distress. HENT: Normocephalic, Atraumatic. EYES: PERRL, EOMI PULMONARY: Unlabored respirations. No audible rales rhonchi or wheezing was noted. CARDIOVASCULAR: There is a regular rate and rhythm without any murmurs gallops or rubs. ABDOMEN: Soft and nontender with normal bowel sounds. SKIN: Skin is clear with no lesions or rashes and otherwise unremarkable. : Deferred NEUROLOGIC: Patient is alert and oriented x3. Moving all extremities spontaneously MUSCULOSKELETAL: Normal extremities with adequate strength and full range of motion. No lower extremity swelling or edema. No calf tenderness. PSYCHIATRIC: Pleasant, anxious Limitations: no limitations Course Vital Signs 03/18/19 03/18/19 03/18/19 04:52 05:26 05:36 Temperature 98.5 F Pulse Rate 63 55 L 55 L Respiratory 20 Rate Blood Pressure 129/58 O2 Sat by Pulse 92 L Oximetry 03/18/19 03/18/19 06:38 07:02 Temperature 98.1 F Pulse Rate 62 Respiratory 20 Rate Blood Pressure 132/50 O2 Sat by Pulse 97 Oximetry EKG Findings - EKG Comments: EKG Findings:: EKG obtained due to illness in elderly female - EKG obtained at 5:01am EKG with a rate of 60, rhythm is sinus, normal axis, there are normal intervals, AL 1:30, QRS 64, QTC 434. No acute ST elevations or depressions no evidence of acute ischemia or infarction. significant tremor artifact noted throughout. Medical Decision Making - Medical Decision Making Patient was seen and evaluated, history was obtained from patient. This 78-year-old female well-known to the emergency department for frequent visits. Patient with generalized malaise, no focal complaints. Decreased by mouth intake. Labs and imaging were ordered, IV fluids were given. EKG was nonischemic, chest x-ray was unremarkable Labs with no significant abnormalities. Results were discussed with the patient and her son at bedside, he is comfortable with plan to take her home at this time. Patient comfortable with plan for discharge home and outpatient follow-up. Return parameters discussed all questions pertaining care were answered. Discharged home in stable c ondition - Lab Data Result diagrams: 03/18/19 05:01 03/18/19 05:01 Lab Results 03/18/19 03/18/19 03/18/19 Range/Units 05:01 05:01 05:01 WBC 6.9 (3.8-10.6) k/uL RBC 4.31 (3.80-5.40) m/uL Hgb 12.8 (11.4-16.0) gm/dL Hct 38.5 (34.0-46.0) % MCV 89.4 (80.0-100.0) fL MCH 29.8 (25.0-35.0) pg MCHC 33.3 (31.0-37.0) g/dL RDW 13.5 (11.5-15.5) % Plt Count 223 (150-450) k/uL Neutrophils % 57 % Lymphocytes % 27 % Monocytes % 5 % Eosinophils % 7 % Basophils % 1 % Neutrophils # 4.0 (1.3-7.7) k/uL Lymphocytes # 1.9 (1.0-4.8) k/uL Monocytes # 0.4 (0-1.0) k/uL Eosinophils # 0.5 (0-0.7) k/uL Basophils # 0.0 (0-0.2) k/uL PT (9.0-12.0) sec INR (<1.2) APTT (22.0-30.0) sec Sodium 140 (137-145) mmol/L Potassium 4.0 (3.5-5.1) mmol/L Chloride 106 (98-107) mmol/L Carbon Dioxide 27 (22-30) mmol/L Anion Gap 7 mmol/L BUN 11 (7-17) mg/dL Creatinine 0.79 (0.52-1.04) mg/dL Est GFR (CKD-EPI)AfAm 84 (>60 ml/min/1.73 sqM) Est GFR (CKD-EPI)NonAf 73 (>60 ml/min/1.73 sqM) Glucose 92 (74-99) mg/dL Calcium 9.2 (8.4-10.2) mg/dL Magnesium 2.0 (1.6-2.3) mg/dL Total Bilirubin 0.7 (0.2-1.3) mg/dL AST 15 (14-36) U/L ALT 12 (9-52) U/L Alkaline Phosphatase 62 (38-126) U/L Troponin I (0.000-0.034) ng/mL NT-Pro-B Natriuret Pep pg/mL Total Protein 6.0 L (6.3-8.2) g/dL Albumin 3.7 (3.5-5.0) g/dL Influenza Type A RNA Not Detected (Not Detectd) Influenza Type B (PCR) Not Detected (Not Detectd) 03/18/19 03/18/19 03/18/19 Range/Units 05:01 05:01 05:01 WBC (3.8-10.6) k/uL RBC (3.80-5.40) m/uL Hgb (11.4-16.0) gm/dL Hct (34.0-46.0) % MCV (80.0-100.0) fL MCH (25.0-35.0) pg MCHC (31.0-37.0) g/dL RDW (11.5-15.5) % Plt Count (150-450) k/uL Neutrophils % % Lymphocytes % % Monocytes % % Eosinophils % % Basophils % % Neutrophils # (1.3-7.7) k/uL Lymphocytes # (1.0-4.8) k/uL Monocytes # (0-1.0) k/uL Eosinophils # (0-0.7) k/uL Basophils # (0-0.2) k/uL PT 10.5 (9.0-12.0) sec INR 1.0 (<1.2) APTT 25.8 (22.0-30.0) sec Sodium (137-145) mmol/L Potassium (3.5-5.1) mmol/L Chloride (98-107) mmol/L Carbon Dioxide (22-30) mmol/L Anion Gap mmol/L BUN (7-17) mg/dL Creatinine (0.52-1.04) mg/dL Est GFR (CKD-EPI)AfAm (>60 ml/min/1.73 sqM) Est GFR (CKD-EPI)NonAf (>60 ml/min/1.73 sqM) Glucose (74-99) mg/dL Calcium (8.4-10.2) mg/dL Magnesium (1.6-2.3) mg/dL Total Bilirubin (0.2-1.3) mg/dL AST (14-36) U/L ALT (9-52) U/L Alkaline Phosphatase (38-126) U/L Troponin I <0.012 (0.000-0.034) ng/mL NT-Pro-B Natriuret Pep 123 pg/mL Total Protein (6.3-8.2) g/dL Albumin (3.5-5.0) g/dL Influenza Type A RNA (Not Detectd) Influenza Type B (PCR) (Not Detectd) Disposition Clinical Impression: Malaise and fatigue Disposition: HOME SELF-CARE Condition: Stable Instructions (If sedation given, give patient instructions): Fatigue (ED) Is patient prescribed a controlled substance at d/c from ED?: No Referrals: Pablo De La Garza DO [Primary Care Provider] - 1-2 days
[2019-03-18 05:23] LABS: Basophils % (A) 1 %; Eosinophils # (A) 0.5 k/uL (0-0.7); Eosinophils % (A) 7 %; HCT 38.5 % (34.0-46.0); HGB 12.8 gm/dL (11.4-16.0); Lymphocytes # (A) 1.9 k/uL (1.0-4.8); Lymphocytes % (A) 27 %; MCH 29.8 pg (25.0-35.0); MCHC 33.3 g/dL (31.0-37.0); MCV 89.4 fL (80.0-100.0); Mean Platelet Volume 6.2; Monocytes # (A) 0.4 k/uL (0-1.0); Monocytes % (A) 5 %; Neutrophils % (A) 57 %; Platelet Count 223 k/uL (150-450); RBC 4.31 m/uL (3.80-5.40); RDW 13.5 % (11.5-15.5); WBC 6.9 k/uL (3.8-10.6)
[2019-03-18 05:32] LABS: Partial Thromboplastin Time 25.8 sec (22.0-30.0); Prothrombin Time 10.5 sec (9.0-12.0)
[2019-03-18 05:36] LABS: Albumin 3.7 g/dL (3.5-5.0); Calcium 9.2 mg/dL (8.4-10.2); Total Bilirubin 0.7 mg/dL (0.2-1.3)
--- NOTE | 2019-03-18 05:36 | XR ---
EXAM: XR Chest, 2 Views CLINICAL HISTORY: Dyspnea. TECHNIQUE: Frontal and lateral views of the chest. COMPARISON: 01/29/2019. FINDINGS: Lungs: Minimal residual subsegmental atelectasis at the right lung base, which is improved since the previous study. The left lung is well aerated. Pleural space: Unremarkable. No pneumothorax. Heart: There is mild cardiomegaly, unchanged. Mediastinum: Unremarkable. Bones/joints: Osteopenia. The osseous structures are within normal limits. There is osteopenia. Other findings: The patient is rotated right of midline. IMPRESSION: Subsegmental atelectasis at the right lung base has improved. Mild cardiomegaly. No significant new focal abnormality since the previous study.
[2019-03-18 06:39] VITALS: BP 132/50; PULSE 62
[2019-03-18 07:02] VITALS: TEMP 98.1
== END 2019-03-18 07:02 | disposition home or self-care (01) ==
LOC: EC 04:51
DX: R53.81 Other malaise (principal); R53.83 Other fatigue; R63.8 Other symptoms and signs concerning food and fluid intake; R05 Cough; I48.20 Chronic atrial fibrillation, unspecified; J44.9 Chronic obstructive pulmonary disease, unspecified; K21.9 Gastro-esophageal reflux disease without esophagitis; G89.29 Other chronic pain; F32.9 Major depressive disorder, single episode, unspecified; F41.9 Anxiety disorder, unspecified; Z88.2 Allergy status to sulfonamides; Z88.6 Allergy status to analgesic agent; Z88.8 Allergy status to other drugs, medicaments and biological substances; Z91.041 Radiographic dye allergy status; Z91.048 Other nonmedicinal substance allergy status; Z79.82 Long term (current) use of aspirin; Z79.899 Other long term (current) drug therapy; Z86.73 Personal history of transient ischemic attack (TIA), and cerebral infarction without residual deficits; Z87.01 Personal history of pneumonia (recurrent); Z87.448 Personal history of other diseases of urinary system
CPT/HCPCS: 36415; 71046; 80053; 83735; 83880; 84484; 85025; 85610; 85730; 87502; 93005; 94640; 96360; 96361; 99285

== ENCOUNTER 2019-03-30 21:55 | Inpatient (IN) | payer MEDICARE ==
[2019-03-30] MEDS ORDERED: IPRATROPIUM-ALBUTEROL 3 ML NEB INHALATION STA (22:01)
[2019-03-30] MEDS ORDERED: methylPREDNISolone SOD SUCCI 125 MG/2 ML VIAL IV STA (22:01)
[2019-03-30] MEDS ORDERED: SODIUM CHLORIDE 0.9% 1,000 ML IV STA ×2 (22:01)
[2019-03-30 22:25] LABS: INR 0.9 (<1.2); Partial Thromboplastin Time 25.3 sec (22.0-30.0); Prothrombin Time 10.1 sec (9.0-12.0)
[2019-03-30 22:28] LABS: Albumin 3.8 g/dL (3.5-5.0); Calcium 9.1 mg/dL (8.4-10.2); Potassium 4.2 mmol/L (3.5-5.1); Total Bilirubin 0.6 mg/dL (0.2-1.3); Total Protein 6.3 g/dL (6.3-8.2)
[2019-03-30 22:29] LABS: Basophils % (A) 0 %; Eosinophils # (A) 0.9 k/uL (0-0.7); Eosinophils % (A) 12 %; HCT 37.3 % (34.0-46.0); HGB 12.7 gm/dL (11.4-16.0); Lymphocytes # (A) 2.5 k/uL (1.0-4.8); Lymphocytes % (A) 34 %; MCH 30.5 pg (25.0-35.0); MCHC 33.9 g/dL (31.0-37.0); MCV 89.8 fL (80.0-100.0); Monocytes # (A) 0.5 k/uL (0-1.0); Monocytes % (A) 7 %; Neutrophils # (A) 3.2 k/uL (1.3-7.7); Neutrophils % (A) 44 %; Platelet Count 266 k/uL (150-450); RBC 4.16 m/uL (3.80-5.40); RDW 13.6 % (11.5-15.5); WBC 7.3 k/uL (3.8-10.6)
--- NOTE | 2019-03-30 22:59 | XR ---
EXAMINATION TYPE: XR chest 2V DATE OF EXAM: 03/30/2019 COMPARISON: 03/18/2019 HISTORY: Difficulty breathing TECHNIQUE: Frontal and lateral views of the chest are obtained. FINDINGS: There is no heart failure nor confluent pneumonic infiltrate. Costophrenic angles are azam r. Heart size is normal. There is old fracture proximal left humerus. There are chest leads. IMPRESSION: No active cardiopulmonary disease. No change compared to old exam.
--- NOTE | 2019-03-30 23:01 | ED ---
SOB HPI - General Chief Complaint: Shortness of Breath Stated Complaint: headache,BARBIE Time Seen by Provider: 03/30/19 21:56 Source: EMS, RN notes reviewed, old records reviewed Mode of arrival: EMS Limitations: no limitations - History of Present Illness Initial Comments: This is a 70-year-old female here for evaluation presents for evaluation of shortness of breath history of COPD. Patient also sister with heart disease but chest pain today. Symptoms began tonight kind of episodic throb a day but worsens exudate. No help. Preterminal way here by EMS resolve symptoms patient on arrival to ER states she feels fine. She admits to little anxiety secondary to feeling lonely at time spearmint I, social FOLFOX, no drugs or alcohol. No recent change in medications taking medications as prescribed, no chest pain MD Complaint: shortness of breath, cough, anxiety -: hour(s) Severity: mild Severity scale (1-10): 3 Consistency: constant, now resolved Improves With: oxygen, bronchodilators, medication Worsens With: exertion, movement Known History Of: COPD, congestive heart failure Context: recent URI Associated Symptoms: cough, sputum production - Related Data Home Medications Medication Instructions Recorded Confirmed FLUoxetine HCL [PROzac] 20 mg PO DAILY 12/19/14 10/24/18 Montelukast Sodium [Singulair] 10 mg PO DAILY 08/24/17 10/24/18 Omeprazole 40 mg PO DAILY 08/24/17 10/24/18 Albuterol Sulfate [Proair Hfa] 2 puff INHALATION RT-Q4H 03/06/18 10/24/18 Furosemide [Lasix] 20 mg PO DAILY 03/06/18 10/24/18 Albuterol Nebulized [Ventolin 2.5 mg INHALATION RT-QID 10/24/18 10/24/18 Nebulized] Aspirin 81 mg PO DAILY 10/24/18 10/24/18 HYDROcodone/APAP 5-325MG [[place] 1 tab PO TID PRN 10/24/18 10/24/18 5-325] Ipratropium Nebulized [Atrovent 0.5 mg INHALATION RT-QID 10/24/18 10/24/18 Nebulized 0.2 MG/ML] Propranolol [Inderal] 10 mg PO TID 10/24/18 10/24/18 Previous Rx's Medication Instructions Recorded ALPRAZolam [Xanax] 0.5 mg PO TID PRN #10 tab 03/08/18 Albuterol Inhaler [Ventolin Hfa 1 - 2 puff INHALATION Q4-6H PRN #1 12/23/18 Inhaler] inhaler Allergies Allergy/AdvReac Type Severity Reaction Status Date / Time ibuprofen Allergy Unknown Verified 03/30/19 22:02 Iodinated Contrast Media Allergy Unknown Verified 03/30/19 22:02 [Iodinated Contrast- Oral and IV Dye] iodine Allergy Rash/Hives Verified 03/30/19 22:02 lorazepam [From Ativan] Allergy Hallucinati Verified 03/30/19 22:02 ons Sulfa (Sulfonamide Allergy Rash/Hives Verified 03/30/19 22:02 Antibiotics) topiramate [From Topamax] Allergy Unknown Verified 03/30/19 22:02 prednisone AdvReac DIZINESS Verified 03/30/19 22:02 zolpidem tartrate AdvReac Hallucinati Verified 03/30/19 22:02 [From Ambien] ons Review of Systems ROS Statement: Those systems with pertinent positive or pertinent negative responses have been documented in the HPI. ROS Other: All systems not noted in ROS Statement are negative. Past Medical History Past Medical History: Atrial Fibrillation, COPD, CVA/TIA, Eye Disorder, GERD/Reflux, Hyperlipidemia, Pneumonia Additional Past Medical History / Comment(s): Chronic atrial fibrillation per PMH but pt has no recollection of this, bronchiectasis, essential tremors, previous TIA, chronic lumbar back pain, past 6 months R shoulder/cervical pain, balance difficulty with falls, occasional low urinary output and uses lasix prn for this, bilateral varicose veins, dysphagia-able to take pills one at a time with water, small hiatal hernia, restless leg syndrome, seasonal ALLERGIES, History of Any Multi-Drug Resistant Organisms: None Reported Past Surgical History: Hysterectomy Additional Past Surgical History / Comment(s): 11/27/15 EGD with bx, bilateral cataracts removed with lens implants, colonoscopy with 1 benign polypectomy. Past Anesthesia/Blood Transfusion Reactions: No Reported Reaction Past Psychological History: Anxiety, Depression Smoking Status: Never smoker Past Alcohol Use History: None Reported Past Drug Use History: None Reported - Past Family History Father Family Medical History: Cancer Additional Family Medical History / Comment(s): Pt thinks father might have from stomach cancer. She was 2 yrs old when he . Sister(s) Family Medical History: Cancer Additional Family Medical History / Comment(s): Half sister with brain cancer. Mother Family Medical History: Dementia Additional Family Medical History / Comment(s): Mother had gallstones and a partial thyroidectomy for noncancerous reasons. General Exam Limitations: no limitations General appearance: alert, in no apparent distress Head exam: Present: atraumatic, normocephalic, normal inspection Eye exam: Present: normal appearance, PERRL, EOMI. Absent: scleral icterus, conjunctival injection, periorbital swelling ENT exam: Present: normal exam, mucous membranes moist Neck exam: Present: normal inspection. Absent: tenderness, meningismus, lymphadenopathy Respiratory exam: Present: wheezes. Absent: respiratory distress, rales, rhonchi, stridor Cardiovascular Exam: Present: regular rate, normal rhythm, normal heart sounds. Absent: systolic murmur, diastolic murmur, rubs, gallop, clicks GI/Abdominal exam: Present: soft, normal bowel sounds. Absent: distended, tenderness, guarding, rebound, rigid Extremities exam: Present: normal inspection, full ROM, normal capillary refill. Absent: tenderness, pedal edema, joint swelling, calf tenderness Back exam: Present: normal inspection Neurological exam: Present: alert, oriented X3, CN II-XII intact Psychiatric exam: Present: normal affect, normal mood Skin exam: Present: warm, dry, intact, normal color. Absent: rash Course Vital Signs 03/30/19 03/30/19 03/30/19 21:59 22:11 22:33 Temperature 98.7 F Pulse Rate 71 68 68 Respiratory 20 18 Rate Blood Pressure 131/72 O2 Sat by Pulse 99 Oximetry - Reevaluation(s) Reevaluation #1: 03/30/19 23:53 Medical record is reviewed Reevaluation #2: 03/30/19 23:53 Spoke with patient at length regarding options to stay or go home, patient states she feels better further bleeding was well like to stay overnight she feels little anxious that her shortness of breath may return - Consultations Consultation #1: spoke w [facility] re admission, ok to admit Medical Decision Making - Medical Decision Making 78 female DF for evaluation of shortness of breath, COPD exacerbation, will admit for observation - Lab Data Result diagrams: 03/30/19 22:04 03/30/19 22:04 Lab Results 03/30/19 03/30/19 03/30/19 Range/Units 22:04 22:04 22:04 WBC 7.3 (3.8-10.6) k/uL RBC 4.16 (3.80-5.40) m/uL Hgb 12.7 (11.4-16.0) gm/dL Hct 37.3 (34.0-46.0) % MCV 89.8 (80.0-100.0) fL MCH 30.5 (25.0-35.0) pg MCHC 33.9 (31.0-37.0) g/dL RDW 13.6 (11.5-15.5) % Plt Count 266 (150-450) k/uL Neutrophils % 44 % Lymphocytes % 34 % Monocytes % 7 % Eosinophils % 12 % Basophils % 0 % Neutrophils # 3.2 (1.3-7.7) k/uL Lymphocytes # 2.5 (1.0-4.8) k/uL Monocytes # 0.5 (0-1.0) k/uL Eosinophils # 0.9 H (0-0.7) k/uL Basophils # 0.0 (0-0.2) k/uL PT (9.0-12.0) sec INR (<1.2) APTT (22.0-30.0) sec Sodium 141 (137-145) mmol/L Potassium 4.2 (3.5-5.1) mmol/L Chloride 104 (98-107) mmol/L Carbon Dioxide 33 H (22-30) mmol/L Anion Gap 4 mmol/L BUN 17 (7-17) mg/dL Creatinine 1.00 (0.52-1.04) mg/dL Est GFR (CKD-EPI)AfAm 63 (>60 ml/min/1.73 sqM) Est GFR (CKD-EPI)NonAf 54 (>60 ml/min/1.73 sqM) Glucose 86 (74-99) mg/dL Calcium 9.1 (8.4-10.2) mg/dL Magnesium 2.0 (1.6-2.3) mg/dL Total Bilirubin 0.6 (0.2-1.3) mg/dL AST 16 (14-36) U/L ALT 12 (9-52) U/L Alkaline Phosphatase 62 (38-126) U/L Troponin I (0.000-0.034) ng/mL NT-Pro-B Natriuret Pep 55 pg/mL Total Protein 6.3 (6.3-8.2) g/dL Albumin 3.8 (3.5-5.0) g/dL 03/30/19 03/30/19 Range/Units 22:04 22:04 WBC (3.8-10.6) k/uL RBC (3.80-5.40) m/uL Hgb (11.4-16.0) gm/dL Hct (34.0-46.0) % MCV (80.0-100.0) fL MCH (25.0-35.0) pg MCHC (31.0-37.0) g/dL RDW (11.5-15.5) % Plt Count (150-450) k/uL Neutrophils % % Lymphocytes % % Monocytes % % Eosinophils % % Basophils % % Neutrophils # (1.3-7.7) k/uL Lymphocytes # (1.0-4.8) k/uL Monocytes # (0-1.0) k/uL Eosinophils # (0-0.7) k/uL Basophils # (0-0.2) k/uL PT 10.1 (9.0-12.0) sec INR 0.9 (<1.2) APTT 25.3 (22.0-30.0) sec Sodium (137-145) mmol/L Potassium (3.5-5.1) mmol/L Chloride (98-107) mmol/L Carbon Dioxide (22-30) mmol/L Anion Gap mmol/L BUN (7-17) mg/dL Creatinine (0.52-1.04) mg/dL Est GFR (CKD-EPI)AfAm (>60 ml/min/1.73 sqM) Est GFR (CKD-EPI)NonAf (>60 ml/min/1.73 sqM) Glucose (74-99) mg/dL Calcium (8.4-10.2) mg/dL Magnesium (1.6-2.3) mg/dL Total Bilirubin (0.2-1.3) mg/dL AST (14-36) U/L ALT (9-52) U/L Alkaline Phosphatase (38-126) U/L Troponin I 0.027 (0.000-0.034) ng/mL NT-Pro-B Natriuret Pep pg/mL Total Protein (6.3-8.2) g/dL Albumin (3.5-5.0) g/dL - Radiology Data Radiology results: report reviewed (Chest x-ray is negative for acute disease), image reviewed Disposition Clinical Impression: Acute exacerbation of chronic obstructive airways disease Disposition: ADMITTED IP TO THIS HOSP Condition: Good Is patient prescribed a controlled substance at d/c from ED?: No Referrals: Pablo De La Garza DO [Primary Care Provider] - 1-2 days
[2019-03-31] MEDS: methylPREDNISolone SOD SUCCI 125 MG/2 ML VIAL IV SCH ×5 (00:09→23:57)
[2019-03-31] MEDS: ALBUTEROL NEBULIZED 2.5 MG/3 ML INHALATION SCH ×2 (05:43→10:32)
[2019-03-31] MEDS: HYDROcodone/APAP 10-325MG 1 EACH TAB PO PRN ×2 (13:50→22:42)
[2019-03-31] MEDS ORDERED: FUROSEMIDE 20 MG TAB PO PRN (14:54)
[2019-03-31] MEDS: FLUoxetine HCL 20 MG CAP PO SCH (16:27)
[2019-03-31] MEDS: HEPARIN SODIUM,PORCINE 5,000 UNIT/ML 1 ML VIAL SQ SCH ×2 (16:28→22:41)
[2019-03-31] MEDS: PROPRANOLOL 10 MG TAB PO SCH ×2 (16:28→22:42)
--- NOTE | 2019-03-31 17:10 | HP ---
HISTORY AND PHYSICAL DATE OF SERVICE: 03/31/2019. CHIEF COMPLAINTS: Shortness of breath and weakness and tremors. HISTORY OF PRESENT ILLNESS: This 78-year-old woman with a past medical history of atrial fibrillation, COPD, CVA, TIA, GERD, hyperlipidemia, history of chronic atrial fibrillation, anxiety, depression, being followed by Dr. Pablo De La Garza in the outpatient setting, apparently living in an apartment above the family. The patient apparently had increasing shortness of breath and sputum for the past several days. Because of lack of improvement and general increased weakness, the patient came to [facility] and admitted to the hospital for further evaluation and treatment. Patient previously had diplopia and transient ischemic attack also. The patient has significant tremors, which is rather exacerbated currently according to her. The chest x-ray showed evidence of acute pneumonia. There is no history of fever, rigors or chills. The patient is complaining of severe back pain also. PAST MEDICAL HISTORY: History of atrial fibrillation, history of COPD, CVA, TIA, history of GERD, history of hysterectomy, anxiety, depression. MEDICATIONS: Home medications are reviewed and include: 1. Lasix 20 mg daily p.r.n. 2. Inderal 10 mg p.o. t.i.d. 3. Omeprazole 40 mg p.o. daily. 4. Singulair 10 mg p.o. daily. 5. Atrovent 0.5 q.i.d. 6. [place] 10 mg t.i.d. p.r.n. 7. Prozac 20 mg p.o. daily. 8. Aspirin 81 mg p.o. daily. 9. ProAir HFA 2 puffs q.4 p.r.n. 10.Ventolin 2.5 q.i.d. 11.Xanax 0.5 t.i.d. p.r.n. ALLERGIES: MULTIPLE ALLERGIES INCLUDING IBUPROFEN, IODINATED CONTRAST, LORAZEPAM, SULFA, TOPAMAX, PREDNISONE, AND AMBIEN. PHYSICAL EXAM: Patient is alert, oriented x2. The pulse is 76. Blood pressure 120/59, respirations 18. Temperature normal. Pulse ox 100 percent on 2 L. HEENT is conjunctivae normal. Oral mucosa moist. NECK is no jugular venous distention. No carotid bruit. No lymph node enlargement. Breathing efforts are markedly increased. CARDIOVASCULAR: S1, S2 normal. Tachycardic. No murmur. No thrills. RESPIRATIONS: Breathing efforts increased. Bilateral scattered rhonchi and crackles. Expiratory wheezing also present. ABDOMEN: Soft, nontender. No mass palpable. LEGS: No edema. No swelling. NERVOUS SYSTEM: Higher functions as mentioned earlier. Moves all 4 limbs. No focal motor or sensory deficits. LYMPHATICS: No lymph nodes palpable in the neck, axillae or groin. SKIN: No ulcer, no rashes and no bleeding. JOINTS: No active deforming arthropathy. LABORATORY DATA: CBC within normal limits. CMP shows CO2 was 33. ASSESSMENT: 1. Chronic obstructive pulmonary disease exacerbation with acute purulent tracheobronchitis. 2. Change in mental status, metabolic encephalopathy, acute on chronic. 3. Gait dysfunction. 4. Diffuse tremors. 5. Atrial fibrillation, paroxysmal. 6. Chronic obstructive pulmonary disease history. 7. Cerebrovascular accident, transient ischemic attack. 8. Gastroesophageal reflux disease. 9. Hypertension. 10.Hyperlipidemia. 11.History of pneumonia. 12.History of bronchiectasis. 13.History of tremors. 14.Previous transient ischemic attack. 15.Chronic lumbar pain, acute on chronic pain. 16.History of dysphagia. 17.History of anxiety, depression. RECOMMENDATIONS AND DISCUSSION: In this 78-year-old woman who presented with multiple complex medical issues, we will monitor the patient closely, continue the current medications, management and symptomatic treatment. We will optimize bronchodilator treatment, IV steroids, empiric antibiotics. Otherwise PT, OT evaluation. Resume the home medications. DVT prophylaxis. Prognosis guarded because of multiple complex medical issues. Further recommendations to follow. I would also recommend x-rays of the lumbar spinal area as well as pelvis with hip x-ray also to ensure stability. Personally reviewed history and as well as x-rays. Prognosis guarded. Further recommendations to follow. A copy of this dictation being forwarded to Dr. De La Garza who is the primary physician. See orders for details. MMODL / IJN: [id number] /
--- NOTE | 2019-03-31 18:07 | XR ---
EXAMINATION TYPE: XR lumbar spine 2 or 3V DATE OF EXAM: 03/31/2019 CLINICAL HISTORY: Low back pain TECHNIQUE: Frontal and lateral images of the lumbar spine are obtained. COMPARISON: None FINDINGS: There is diffuse osseous demineralization and dextroscoliosis of the lumbar spine. There is a chronic compression deformity of L2 and the compression deformities of L3-L5 that are more subtle all unchanged from 02/18/2019. Mild degree facet arthropathy. There are 5 lumbar type vertebral bodi es identified. The lumbar spine shows satisfactory alignment without evidence of acute fracture or d islocation. Vertebral body heights and disk space heights are within normal limits. The overlying sof t tissue appears unremarkable. IMPRESSION: 1. No acute fracture is seen in the lumbar spine. Multilevel compression deformities of the lumbar sp ine are unchanged from 02/18/2019. 2. 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
--- NOTE | 2019-03-31 18:08 | XR ---
EXAMINATION TYPE: XR Hip Bilateral and AP pelvis DATE OF EXAM: 03/31/2019 COMPARISON: NONE HISTORY: Altered mental status and low back pain TECHNIQUE: A single AP view of the pelvis is obtained. Two views of the bilateral hips were obtained. FINDINGS: There is diffuse osseous demineralization. There is no acute fracture/dislocation evident in the pelvis. The hip and sacroiliac joints appear symmetric with mild acetabular roof sclerosis an d joint space narrowing. The overlying soft tissue appears unremarkable. Two views both hips show no acute fracture or dislocation. The overlying soft tissue is unremarkable. IMPRESSION: There is no acute fracture or dislocation in the pelvis or either hip. Mild bilateral fe moral acetabular arthropathy. Diffuse osseous demineralization.
[2019-03-31] MEDS: ALPRAZolam 0.5 MG TAB PO PRN (18:58)
[2019-03-31] MEDS: INSULIN ASPART (NovoLOG) 100 UNIT/ML VIAL SQ SCH ×2 (19:03→22:41)
[2019-03-31] MEDS: IPRATROPIUM-ALBUTEROL 3 ML NEB INHALATION SCH ×2 (19:06→19:15)
[2019-03-31 20:28] LABS: Glucose,Whole Blood 133 mg/dL (75-99)
[2019-03-31 22:58] LABS: Glucose,Whole Blood 137 mg/dL (75-99)
[2019-04-01] MEDS: methylPREDNISolone SOD SUCCI 125 MG/2 ML VIAL IV SCH ×4 (05:23→23:35)
[2019-04-01] MEDS: ALPRAZolam 0.5 MG TAB PO PRN ×3 (05:47→21:43)
[2019-04-01] MEDS: IPRATROPIUM-ALBUTEROL 3 ML NEB INHALATION PRN (05:57)
[2019-04-01 06:54] LABS: Glucose,Whole Blood 134 mg/dL (75-99)
[2019-04-01] MEDS ORDERED: PANTOPRAZOLE 40 MG TABLET PO SCH (07:30)
[2019-04-01] MEDS: IPRATROPIUM-ALBUTEROL 3 ML NEB INHALATION SCH ×4 (08:03→21:21)
[2019-04-01 08:31] LABS: African American GFR (CKD) >90 (>60 ml/min/1.73 sqM); Anion Gap 4 mmol/L; Blood Urea Nitrogen 14 mg/dL (7-17); Calcium 9.6 mg/dL (8.4-10.2); Carbon Dioxide 31 mmol/L (22-30); Chloride 105 mmol/L (98-107); Glucose 126 mg/dL (74-99); Non-African American GFR(CKD) 86 (>60 ml/min/1.73 sqM); Potassium 4.8 mmol/L (3.5-5.1); Sodium 140 mmol/L (137-145)
[2019-04-01] MEDS: HEPARIN SODIUM,PORCINE 5,000 UNIT/ML 1 ML VIAL SQ SCH ×2 (09:18→20:18)
[2019-04-01] MEDS: PANTOPRAZOLE 40 MG TABLET PO SCH (09:19)
[2019-04-01] MEDS: FLUoxetine HCL 20 MG CAP PO SCH (09:19)
[2019-04-01] MEDS: INSULIN ASPART (NovoLOG) 100 UNIT/ML VIAL SQ SCH ×4 (09:19→20:18)
[2019-04-01] MEDS: ASPIRIN 81 MG PO SCH (09:19)
[2019-04-01] MEDS: MONTELUKAST 10 MG TAB PO SCH (09:19)
[2019-04-01] MEDS: PROPRANOLOL 10 MG TAB PO SCH ×3 (09:21→21:43)
--- NOTE | 2019-04-01 10:19 | P.PN ---
Subjective This is a pleasant 78 years old female with past medical history of atrial fibrillation, COPD, CVA/TIA, hyperlipidemia, GERD, tremor, previous TIA several years ago as per patient, chronic low back pain, chronic right shoulder and cervical pain, as well as gait gait difficulty with falls, restless leg syndrome, presents because of dyspnea associated with a dry cough but no chest pain, and is at home oxygen about 2-3 L, she is not on steroids. There was mentioned in the history of atrial fibrillation however patient cannot recall list. Her EKG showing normal sinus rhythm at [address]-T changes. Also patient denies being on anticoagulation. Patient was admitted with presumptive diagnosis of acute COPD exacerbation. She's been started on Rocephin and Solu-Medrol and IV fluids. Patient is still have some dyspnea although she states she feels better. She has pelvic and bilateral hip x-ray was showing no acute fracture or dislocation and diffuse osseous demineralization chronic compression deformities of the lumbars spines unchange from 02/18/2019, with osteoporosis and multilevel degenerative disc disease, mild. Influenza is been negative. Review of systems CONSTITUTIONAL: No fever, no malaise, no fatigue. HEENT: No recent visual problems or hearing problems. Denied any sore throat. CARDIOVASCULAR: No orthopnea, PND, no palpitations, no syncope. PULMONARY: no hemoptysis. GASTROINTESTINAL: No diarrhea, no nausea, no vomiting, no abdominal pain. Normoactive bowel sounds. NEUROLOGICAL: No headaches, no weakness, no numbness. HEMATOLOGICAL: Denies any bleeding or petechiae. GENITOURINARY: Denies any burning micturition, frequency, or urgency. MUSCULOSKELETAL/RHEUMATOLOGICAL: Denies any joint pain, swelling, or any muscle pain. ENDOCRINE: Denies any polyuria or polydipsia. Active Medications Generic Name Dose Route Start Last Admin Trade Name Freq PRN Reason Stop Dose Admin Hydrocodone Bitart/Acetaminophen 1 each 03/31/19 13:40 03/31/19 22:42 [place] 10 PO 1 each Q8H PRN Administration Pain Albuterol/Ipratropium 3 ml 03/30/19 23:55 04/01/19 05:57 [place]oneb 0.5 Mg-3 Mg/3 Ml Soln INHALATION 3 ml RT-Q4H PRN Administration Shortness Of Breath Or Wheezing Albuterol/Ipratropium 3 ml 03/31/19 16:00 04/01/19 08:03 Duoneb 0.5 Mg-3 Mg/3 Ml Soln INHALATION 3 ml RT-QID BA Administration Alprazolam 0.5 mg 03/31/19 14:54 04/01/19 05:47 Xanax PO 0.5 mg TID PRN Administration Anxiety Aspirin 81 mg 04/01/19 09:00 04/01/19 09:19 Aspirin PO 81 mg DAILY BA Administration Fluoxetine HCl 20 mg 03/31/19 15:00 04/01/19 09:19 Prozac PO 20 mg DAILY BA Administration Furosemide 20 mg 03/31/19 14:54 Lasix PO DAILY PRN SWELLING Heparin Sodium (Porcine) 5,000 unit 03/31/19 15:00 04/01/19 09:18 Heparin SQ 5,000 unit Q12HR BA Administration Ceftriaxone Sodium 1 gm/ 50 mls @ 100 mls/hr 03/31/19 16:15 04/01/19 09:42 Sodium Chloride IVPB 100 mls/hr Q24HR BA Administration Insulin Aspart 0 unit 03/31/19 17:30 04/01/19 09:19 Novolog SQ 1 unit ACHS BA Administration Protocol Methylprednisolone Sodium Succinate 60 mg 03/31/19 00:00 04/01/19 05:23 Solu-Medrol IV 60 mg Q6HR BA Administration Montelukast Sodium 10 mg 04/01/19 09:00 04/01/19 09:19 Singulair PO 10 mg DAILY BA Administration Pantoprazole Sodium 40 mg 04/01/19 07:30 04/01/19 09:19 Protonix PO 40 mg [id number] BA Administration Propranolol HCl 10 mg 03/31/19 16:00 04/01/19 09:21 Inderal PO 10 mg TID BA Administration Objective - Vital Signs Vital signs: Vital Signs Temp 97.6 F 04/01/19 05:35 Pulse 72 04/01/19 08:17 Resp 18 04/01/19 05:35 BP 107/60 04/01/19 05:35 Pulse Ox 98 04/01/19 08:04 Intake & Output 03/31/19 04/01/19 04/01/19 18:59 06:59 18:59 Other: Voiding Method Toilet Toilet # Voids 2 - Exam GENERAL: The patient is alert and oriented x3, not in any acute distress. Well developed, well nourished. HEENT: Pupils are round and equally reacting to light. EOMI. No scleral icterus. No conjunctival pallor. Normocephalic, atraumatic. No pharyngeal erythema. No thyromegaly. CARDIOVASCULAR: S1 and S2 present. No murmurs, rubs, or gallops. -PULMONARY: Chest is clear to auscultation, no wheezing or crackles. Bilateral expiratory wheezing with prolonged expiration and tachypnea ABDOMEN: Soft, nontender, nondistended, normoactive bowel sounds. No palpable organomegaly. MUSCULOSKELETAL: No joint swelling or deformity. EXTREMITIES: No cyanosis, clubbing, or pedal edema. NEUROLOGICAL: Gross neurological examination did not reveal any focal deficits. SKIN: No rashes. no petechiae. - Labs CBC & Chem 7: 03/30/19 22:04 04/01/19 07:24 Labs: Abnormal Lab Results - Last 24 Hours (Table) 03/31/19 03/31/19 04/01/19 Range/Units 20:26 22:38 06:52 Carbon Dioxide (22-30) mmol/L Glucose (74-99) mg/dL POC Glucose (mg/dL) 133 H 137 H 134 H (75-99) mg/dL 04/01/19 Range/Units 07:24 Carbon Dioxide 31 H (22-30) mmol/L Glucose 126 H (74-99) mg/dL POC Glucose (mg/dL) (75-99) mg/dL Assessment and Plan Assessment: Acute COPD exacerbation Acute tracheobronchitis Questionable history of atrial fibrillation History of TIA several years ago as per patient Osteoporosis Degenerative joint disease Chronic compression deformities of the lumbar spine in change from 01/2019 Chronic gait difficulty Plan: This is a pleasant 78 years old female who presents with COPD exacerbation tracheobronchitis. Continue with antibiotics and steroids. Continue with oral hydration and discontinue IV fluids. Continue with pain management. Start vitamin D. Also will repeat EKG. Place patient on telemetry. Labs and medication were reviewed.. Continue same treatment. Continue with sy mptomatic treatment. Resume home medication. Monitor lytes and vitals. DVT and GI prophylaxis. Further recommendations of the clinical course of the patient DVT prophylaxis: Subcutaneous heparin GI Prophylaxis: Protonix PT/OT: Pending Prognosis is guarded
[2019-04-01 11:13] LABS: Glucose,Whole Blood 85 mg/dL (75-99)
[2019-04-01] MEDS: HYDROcodone/APAP 10-325MG 1 EACH TAB PO PRN (15:32)
[2019-04-01 17:02] LABS: Glucose,Whole Blood 136 mg/dL (75-99)
[2019-04-01 20:01] LABS: Glucose,Whole Blood 154 mg/dL (75-99)
[2019-04-01] MEDS: CALCIUM CARB-VIT D 500MG-200UN 1 EACH TAB PO SCH (21:43)
[2019-04-02] MEDS: methylPREDNISolone SOD SUCCI 125 MG/2 ML VIAL IV SCH ×2 (05:28→11:40)
[2019-04-02] MEDS: IPRATROPIUM-ALBUTEROL 3 ML NEB INHALATION SCH ×4 (06:55→20:05)
[2019-04-02 07:10] LABS: Glucose,Whole Blood 122 mg/dL (75-99)
[2019-04-02] MEDS: INSULIN ASPART (NovoLOG) 100 UNIT/ML VIAL SQ SCH ×4 (07:26→20:36)
[2019-04-02 08:36] LABS: African American GFR (CKD) >90 (>60 ml/min/1.73 sqM); Anion Gap 7 mmol/L; Blood Urea Nitrogen 18 mg/dL (7-17); Calcium 10.1 mg/dL (8.4-10.2); Carbon Dioxide 33 mmol/L (22-30); Chloride 101 mmol/L (98-107); Glucose 116 mg/dL (74-99); Non-African American GFR(CKD) 82 (>60 ml/min/1.73 sqM); Potassium 3.7 mmol/L (3.5-5.1); Sodium 141 mmol/L (137-145)
--- NOTE | 2019-04-02 08:47 | XR ---
EXAMINATION TYPE: XR chest 1V DATE OF EXAM: 04/02/2019 COMPARISON: Prior chest x-ray 03/30/2019, CT 04/06/2018, 05/29/2018 HISTORY: Follow-up, history difficulty breathing TECHNIQUE: Single frontal view of the chest is obtained. FINDINGS: The patient is rotated. Old trauma to the proximal left humerus shows a similar appearance . There are overlying cardiac leads. The heart is enlarged as on prior accounting for differences in technique. No evident airspace disease, pneumothorax, or pleural effusion. Technique is somewhat apic al lordotic and the thoracic spine shows possible curvature. There is eventration of the right hemidi aphragm. Prominent lung volume may be indicative of underlying COPD. IMPRESSION: Cardiomegaly, correlate for emphysema, COPD
[2019-04-02] MEDS: ASPIRIN 81 MG PO SCH (09:23)
[2019-04-02] MEDS: HEPARIN SODIUM,PORCINE 5,000 UNIT/ML 1 ML VIAL SQ SCH ×2 (09:23→20:30)
[2019-04-02] MEDS: MONTELUKAST 10 MG TAB PO SCH (09:23)
[2019-04-02] MEDS: PANTOPRAZOLE 40 MG TABLET PO SCH (09:23)
[2019-04-02] MEDS: FLUoxetine HCL 20 MG CAP PO SCH (09:23)
[2019-04-02] MEDS: CALCIUM CARB-VIT D 500MG-200UN 1 EACH TAB PO SCH ×2 (09:23→17:19)
[2019-04-02] MEDS: PROPRANOLOL 10 MG TAB PO SCH ×3 (09:24→21:36)
[2019-04-02] MEDS: ALPRAZolam 0.5 MG TAB PO PRN ×2 (11:03→20:30)
[2019-04-02 11:36] LABS: Glucose,Whole Blood 104 mg/dL (75-99)
--- NOTE | 2019-04-02 13:34 | P.PN ---
Subjective This is a pleasant 78 years old female with past medical history of atrial fibrillation, COPD, CVA/TIA, hyperlipidemia, GERD, tremor, previous TIA several years ago as per patient, chronic low back pain, chronic right shoulder and cervical pain, as well as gait gait difficulty with falls, restless leg syndrome, presents because of dyspnea associated with a dry cough but no chest pain, and is at home oxygen about 2-3 L, she is not on steroids. There was mentioned in the history of atrial fibrillation however patient cannot recall list. Her EKG showing normal sinus rhythm at [address]-T changes. Also patient denies being on anticoagulation. Patient was admitted with presumptive diagnosis of acute COPD exacerbation. She's been started on Rocephin and Solu-Medrol and IV fluids. Patient is still have some dyspnea although she states she feels better. She has pelvic and bilateral hip x-ray was showing no acute fracture or dislocation and diffuse osseous demineralization chronic compression deformities of the lumbars spines unchange from 02/18/2019, with osteoporosis and multilevel degenerative disc disease, mild. Influenza is been negative. 04/02/2019 Patient breathing is improving, she has occasional cough which is also improving. No chest pain. Vitals are stable and she is saturating 94% on 2 L. Labs are stable. Sugar is controlled. Patient feels weakness in her muscles at physical therapy evaluated the patient and recommended subacute rehab, social work job titles has been consulted. Continue with Rocephin and lower the dose of Solu- Medrol from 60 down to 40 mg. Encourage oral hydration Objective - Vital Signs Vital signs: Vital Signs Temp 97.9 F 04/02/19 12:07 Pulse 60 04/02/19 12:07 Resp 17 04/02/19 12:07 BP 156/76 04/02/19 12:07 Pulse Ox 94 L 04/02/19 12:07 Intake & Output 04/01/19 04/02/19 04/02/19 18:59 06:59 18:59 Intake Total 960 Balance 960 Intake: Oral 960 Other: Voiding Method Toilet Bedside Commode Bedside Commode # Voids 7 - Exam GENERAL: The patient is alert and oriented x3, not in any acute distress. Well developed, well nourished. HEENT: Pupils are round and equally reacting to light. EOMI. No scleral icterus. No conjunctival pallor. Normocephalic, atraumatic. No pharyngeal erythema. No thyromegaly. CARDIOVASCULAR: S1 and S2 present. No murmurs, rubs, or gallops. -PULMONARY: Chest is clear to auscultation, no wheezing or crackles. Bilateral expiratory wheezing with prolonged expiration and tachypnea ABDOMEN: Soft, nontender, nondistended, normoactive bowel sounds. No palpable organomegaly. MUSCULOSKELETAL: No joint swelling or deformity. EXTREMITIES: No cyanosis, clubbing, or pedal edema. NEUROLOGICAL: Gross neurological examination did not reveal any focal deficits. SKIN: No rashes. no petechiae. - Labs CBC & Chem 7: 03/30/19 22:04 04/02/19 07:51 Labs: Abnormal Lab Results - Last 24 Hours (Table) 04/01/19 04/01/19 04/02/19 Range/Units 17:00 19:59 07:01 Carbon Dioxide (22-30) mmol/L BUN (7-17) mg/dL Glucose (74-99) mg/dL POC Glucose (mg/dL) 136 H 154 H 122 H (75-99) mg/dL 04/02/19 04/02/19 Range/Units 07:51 11:09 Carbon Dioxide 33 H (22-30) mmol/L BUN 18 H (7-17) mg/dL Glucose 116 H (74-99) mg/dL POC Glucose (mg/dL) 104 H (75-99) mg/dL Assessment and Plan Assessment: Acute COPD exacerbation Acute tracheobronchitis Questionable history of atrial fibrillation History of TIA several years ago as per patient Osteoporosis Degenerative joint disease Chronic compression deformities of the lumbar spine in change from 01/2019 Chronic gait difficulty Plan: This is a pleasant 78 years old female who presents with COPD exacerbation tracheobronchitis. Continue with antibiotics and steroids. Continue with oral hydration and discontinue IV fluids. Continue with pain management. Start vitamin D. wash house worker consult for placement Labs and medication were reviewed.. Continue same treatment. Continue with symptomatic treatment. Resume home medication. Monitor lytes and vitals. DVT and GI prophylaxis. Further recommendations of the clinical course of the patient DVT prophylaxis: Subcutaneous heparin GI Prophylaxis: Protonix PT/OT: Recommended subacute rehab Prognosis is guarded
--- NOTE | 2019-04-02 16:58 | CDI ---
Documentation Clarification Form Date: 04/02/2019 From: Becky Sands RN, CCDS Admit Date: 04/01/2019 11:28:00 AM Patient Name: Angel Gomez Visit Number: [id number] Discharge Date: ATTENTION: The Clinical Documentation Specialists (CDI) and [facility] Coding Staff appreciate your assistance in clarifying documentation. Please respond to the clarification below the line at the bottom and electronically sign. The CDI & [facility] Coding staff will review the response and follow-up if needed. Please note: Queries are made part of the Legal Health Record. If you have any questions, please contact the author of this message via ITS. Dr. Abdi Sullivan The patient presented with the following shortness of breath, difficulty in breathing. History/Risk Factors: COPD, Atrial Fibrillation, Home oxygen: 2-3 L (progress note on 04/01/19 Dr. Sullivan) Clinical Indicators: 78-year-old female present with complaints of shortness of breath. She has a diagnosis of COPD exacerbation. Vital signs: 03/30/19: 131/72 71 20 98.7 99 % 2/L NC 04/01/19@11:21 131/64 60 18 98 % 2/l NC Chest x-ray03/30/19: Negative for acute disease Lung/Breathing assessment in ED: wheezes, no apparent distress Treatment: Breathing TX: Bronchodilators per orders Rocephin IV Solu-medrol IV (taper) Monitor lytes and vitals Monitor O2 Sat's (titrate) In your professional opinion, can you please clarify if these findings signify one of the following conditions? Acute Hypoxic Respiratory Failure Chronic Hypoxic Respiratory Failure Other Diagnosis, please specify Unable to determine (Last Query Form Revision: December 2018) patient with Chronic Hypoxic Respiratory Failure MTDD
[2019-04-02] MEDS: methylPREDNISolone SOD SUCCI 40 MG/ML 1 ML VIAL IV SCH ×2 (17:20→23:05)
[2019-04-02 17:38] LABS: Glucose,Whole Blood 97 mg/dL (75-99)
[2019-04-02 20:26] LABS: Glucose,Whole Blood 114 mg/dL (75-99)
[2019-04-02] MEDS: HYDROcodone/APAP 10-325MG 1 EACH TAB PO PRN (21:35)
[2019-04-03] MEDS: IPRATROPIUM-ALBUTEROL 3 ML NEB INHALATION PRN ×2 (01:33→04:29)
[2019-04-03 05:30] VITALS: RESP 16
[2019-04-03 07:10] LABS: Glucose,Whole Blood 117 mg/dL (75-99)
[2019-04-03] MEDS: IPRATROPIUM-ALBUTEROL 3 ML NEB INHALATION SCH ×4 (07:46→19:30)
[2019-04-03 08:13] LABS: Calcium 9.7 mg/dL (8.4-10.2); Potassium 3.7 mmol/L (3.5-5.1)
[2019-04-03] MEDS: INSULIN ASPART (NovoLOG) 100 UNIT/ML VIAL SQ SCH ×4 (08:42→20:39)
[2019-04-03] MEDS: MONTELUKAST 10 MG TAB PO SCH (08:51)
[2019-04-03] MEDS: CALCIUM CARB-VIT D 500MG-200UN 1 EACH TAB PO SCH ×2 (08:51→16:56)
[2019-04-03] MEDS: ALPRAZolam 0.5 MG TAB PO PRN ×2 (08:51→18:24)
[2019-04-03] MEDS: ASPIRIN 81 MG PO SCH (08:51)
[2019-04-03] MEDS: methylPREDNISolone SOD SUCCI 40 MG/ML 1 ML VIAL IV SCH ×2 (08:53→16:56)
[2019-04-03] MEDS: PROPRANOLOL 10 MG TAB PO SCH ×3 (08:53→21:28)
[2019-04-03] MEDS: FLUoxetine HCL 20 MG CAP PO SCH (08:53)
[2019-04-03] MEDS: PANTOPRAZOLE 40 MG TABLET PO SCH (08:53)
[2019-04-03] MEDS: HEPARIN SODIUM,PORCINE 5,000 UNIT/ML 1 ML VIAL SQ SCH ×2 (08:54→21:28)
[2019-04-03 12:10] LABS: Glucose,Whole Blood 113 mg/dL (75-99)
[2019-04-03] MEDS: HYDROcodone/APAP 10-325MG 1 EACH TAB PO PRN (15:20)
[2019-04-03 16:53] LABS: Glucose,Whole Blood 120 mg/dL (75-99)
[2019-04-03 20:02] LABS: Glucose,Whole Blood 131 mg/dL (75-99)
[2019-04-04] MEDS: methylPREDNISolone SOD SUCCI 40 MG/ML 1 ML VIAL IV SCH ×2 (03:51→08:34)
[2019-04-04] MEDS: INSULIN ASPART (NovoLOG) 100 UNIT/ML VIAL SQ SCH ×2 (08:05→11:16)
[2019-04-04] MEDS: CALCIUM CARB-VIT D 500MG-200UN 1 EACH TAB PO SCH (08:32)
[2019-04-04] MEDS: PROPRANOLOL 10 MG TAB PO SCH (08:32)
[2019-04-04] MEDS: ASPIRIN 81 MG PO SCH (08:32)
[2019-04-04] MEDS: ALPRAZolam 0.5 MG TAB PO PRN (08:32)
[2019-04-04] MEDS: PANTOPRAZOLE 40 MG TABLET PO SCH (08:32)
[2019-04-04] MEDS: MONTELUKAST 10 MG TAB PO SCH (08:32)
[2019-04-04] MEDS: HYDROcodone/APAP 10-325MG 1 EACH TAB PO PRN (08:33)
[2019-04-04] MEDS: FLUoxetine HCL 20 MG CAP PO SCH (08:33)
[2019-04-04] MEDS: HEPARIN SODIUM,PORCINE 5,000 UNIT/ML 1 ML VIAL SQ SCH (08:35)
--- NOTE | 2019-04-04 08:41 | P.PN ---
Subjective This is a pleasant 78 years old female with past medical history of atrial fibrillation, COPD, CVA/TIA, hyperlipidemia, GERD, tremor, previous TIA several years ago as per patient, chronic low back pain, chronic right shoulder and cervical pain, as well as gait gait difficulty with falls, restless leg syndrome, presents because of dyspnea associated with a dry cough but no chest pain, and is at home oxygen about 2-3 L, she is not on steroids. There was mentioned in the history of atrial fibrillation however patient cannot recall list. Her EKG showing normal sinus rhythm at [address]-T changes. Also patient denies being on anticoagulation. Patient was admitted with presumptive diagnosis of acute COPD exacerbation. She's been started on Rocephin and Solu-Medrol and IV fluids. Patient is still have some dyspnea although she states she feels better. She has pelvic and bilateral hip x-ray was showing no acute fracture or dislocation and diffuse osseous demineralization chronic compression deformities of the lumbars spines unchange from 02/18/2019, with osteoporosis and multilevel degenerative disc disease, mild. Influenza is been negative. 04/02/2019 Patient breathing is improving, she has occasional cough which is also improving. No chest pain. Vitals are stable and she is saturating 94% on 2 L. Labs are stable. Sugar is controlled. Patient feels weakness in her muscles at physical therapy evaluated the patient and recommended subacute rehab, family welfare social work professor has been consulted. Continue with Rocephin and lower the dose of Solu- Medrol from 60 down to 40 mg. Encourage oral hydration 04/03/2019 Patient is clinically improving and his breathing is much better with less wheezing. Vitas looks stable. No other new complaints. Telemetry checked there is no arrhythmia. Repeat EKG showing normal sinus rhythm. Patient has a suspicious history of atrial fibrillation, patient was instructed to follow up with her fast food delivery driver as an outpatient and she agrees. I talked to the patient daughter Mrs. hodges on her request, discussed the case with her and the recommendation patient to go to rehab and she agrees with this plan. Also I discussed with her the need to follow up with insurance solicitor and fast food delivery driver as an outpatient and she agrees. Patient is medically clear for discharge however she is pending insurance authorization for rehab Objective - Vital Signs Vital signs: Vital Signs Temp 97.9 F 12/11/19 12:33 Pulse 81 04/03/19 15:25 Resp 16 04/03/19 15:25 BP 171/77 04/03/19 12:33 Pulse Ox 93 L 04/03/19 12:33 Intake & Output 04/02/19 04/03/19 04/03/19 18:59 06:59 18:59 Intake Total 50 590 50 Balance 50 590 50 Intake: Intake, IV Titration 50 50 Amount cefTRIAXone 1 gm In 50 50 Sodium Chloride 0.9% 50 ml @ 100 mls/hr IVPB Q24HR [facility] Rx#:[id number] Oral 590 Other: Voiding Method Bedside Commode Bedside Commode Bedside Commode # Voids 2 - Exam GENERAL: The patient is alert and oriented x3, not in any acute distress. Well developed, well nourished. HEENT: Pupils are round and equally reacting to light. EOMI. No scleral icterus. No conjunctival pallor. Normocephalic, atraumatic. No pharyngeal erythema. No thyromegaly. CARDIOVASCULAR: S1 and S2 present. No murmurs, rubs, or gallops. -PULMONARY: Chest is clear to auscultation, no wheezing or crackles. Bilateral expiratory wheezing with prolonged expiration and tachypnea ABDOMEN: Soft, nontender, nondistended, normoactive bowel sounds. No palpable organomegaly. MUSCULOSKELETAL: No joint swelling or deformity. EXTREMITIES: No cyanosis, clubbing, or pedal edema. NEUROLOGICAL: Gross neurological examination did not reveal any focal deficits. SKIN: No rashes. no petechiae. - Labs CBC & Chem 7: 03/30/19 22:04 04/03/19 07:38 Labs: Abnormal Lab Results - Last 24 Hours (Table) 04/02/19 04/03/19 04/03/19 Range/Units 20:23 07:09 07:38 Carbon Dioxide 32 H (22-30) mmol/L BUN 20 H (7-17) mg/dL Glucose 114 H (74-99) mg/dL POC Glucose (mg/dL) 114 H 117 H (75-99) mg/dL 04/03/19 04/03/19 Range/Units 11:51 16:52 Carbon Dioxide (22-30) mmol/L BUN (7-17) mg/dL Glucose (74-99) mg/dL POC Glucose (mg/dL) 113 H 120 H (75-99) mg/dL Assessment and Plan Assessment: Acute COPD exacerbation Acute tracheobronchitis Questionable history of atrial fibrillation History of TIA several years ago as per patient Osteoporosis Degenerative joint disease Chronic compression deformities of the lumbar spine in change from 01/2019 Chronic gait difficulty Plan: This is a pleasant 78 years old female who presents with COPD exacerbation tracheobronchitis. Continue with antibiotics and steroids. Continue with oral hydration and discontinue IV fluids. Continue with pain management. Start vitamin D. workers' compensation claims examiner consult for placement Labs and medication were reviewed.. Continue same treatment. Continue with symptomatic treatment. Resume home medication. Monitor lytes and vitals. DVT and GI prophylaxis. Further recommendations of the clinical course of the patient DVT prophylaxis: Subcutaneous heparin GI Prophylaxis: Protonix PT/OT: Recommended subacute rehab Prognosis is guarded Patient is medically clear for discharge however she is pending insurance authorization for rehab
--- NOTE | 2019-04-04 09:40 | P.DS ---
Providers Date of admission: 04/01/19 11:28 Attending physician: Rhys Hernandez Primary care physician: Pablo De La Garza [facility] Course: diagnoses: Acute COPD exacerbation Acute tracheobronchitis Questionable history of atrial fibrillation History of TIA several years ago as per patient Osteoporosis Degenerative joint disease Chronic compression deformities of the lumbar spine in change from 01/2019 Chronic gait difficulty hospital course: This is a pleasant 78 years old female with past medical history of atrial fibrillation, COPD, CVA/TIA, hyperlipidemia, GERD, tremor, previous TIA several years ago as per patient, chronic low back pain, chronic right shoulder and cervical pain, as well as gait gait difficulty with falls, restless leg syndrome, presents because of dyspnea associated with a dry cough but no chest pain, and is at home oxygen about 2-3 L, she is not on steroids. Patient was admitted with presumptive diagnosis of acute COPD exacerbation. She's been started on Rocephin and Solu-Medrol and bronchodilators. patient showed interval improvement and she is breathing much easier now, her coughing is better also.patient feels she can be discharged. She denies any other new complaint. She denies chest pain or abdominal pain. No nausea vomiting. No fever.she is saturating 94-95% in 2 L oxygen via nasal cannula. patient will be discharged on short course of antibiotics and Taper steroids. Physical therapy recommended subacute rehab I talked to the patient and her daughter Mrs. Salinas over the phone and both agreed for this planned to go to rehab yesterday but today the pt changed her mind again despite extensive counseling to go to rehab she wants to go home now and do HHC, risks and benefits and alternative are explained for her and she still wants to go home also patient was questionable history of atrial fibrillation about 2 years ago, at that time patient has been following up with polishing machine operator helper as per patient daughter. Repeat EKG showed normal sinus rhythm. Telemetry didn't show any arrhythmia or atrial fibrillation. I discussed the case with the daughters with a recommendation for outpatient follow-up with her polishing machine operator helper and she agrees Problems and management plan were discussed with the patient and he verbalized understanding and acceptance Patient was found stable and can be discharged home however he needs follow-up as an outpatient. Patient was instructed to follow up with PCP within one week and patient agrees. i discussed appiontments with pcp , cardiology and pulmonology with pt and ms. Salinas and both agree with them and their timing Gen: patient is a AAOx3, no distress CVS: S1-S2, RRR, no murmur Lungs: B/L CTA, no wheezing Abdomen: soft, no distention, no tenderness, positive bowel sounds Extremity: no leg edema or induration Time spent more than 35 minutes Patient Condition at Discharge: Good Plan - Discharge Summary Discharge Rx Participant: No New Discharge Prescriptions: New Cefuroxime Axetil [Ceftin] 500 mg PO BID 5 Days #10 tab Ipratropium-Albuterol Nebulize [Duoneb 0.5 mg-3 mg/3 ml Soln] 3 ml INHALATION RT-QID ampul.neb Ipratropium-Albuterol Nebulize [Duoneb 0.5 mg-3 mg/3 ml Soln] 3 ml INHALATION RT-Q4H PRN ampul.neb PRN Reason: Shortness Of Breath Or Wheezing Heparin Sodium,Porcine [Heparin Sodium] 5,000 unit SQ Q12HR vial INSULIN ASPART (NovoLOG) [NovoLOG (formulary)] 0 unit SQ ACHS vial Calcium Carb-Vit D 500Mg-200Un [Oscal 500+D] 1 each PO BID-W/MEALS tab predniSONE 10 mg PO DIRECTED #40 tab Albuterol Inhaler [Ventolin Hfa Inhaler] 1 - 2 puff INHALATION RT-Q6H PRN #1 inhaler PRN Reason: Shortness Of Breath Or Wheezing Continue FLUoxetine HCL [PROzac] 20 mg PO DAILY Omeprazole 40 mg PO DAILY Montelukast Sodium [Singulair] 10 mg PO DAILY Albuterol Sulfate [Proair Hfa] 2 puff INHALATION RT-Q4H Furosemide [Lasix] 20 mg PO DAILY PRN PRN Reason: SWELLING Ipratropium Nebulized [Atrovent Nebulized 0.2 MG/ML] 0.5 mg INHALATION RT-Q6H Propranolol [Inderal] 10 mg PO Q6H Aspirin 81 mg PO DAILY FLUoxetine HCL [PROzac] 10 mg PO DAILY HYDROcodone/APAP 10-325MG [[place] 10-325] 1 tab PO Q8H PRN #6 tab PRN Reason: Pain ALPRAZolam [Xanax] 0.5 mg PO TID PRN #3 tab PRN Reason: Anxiety Discharge Medication List FLUoxetine HCL [PROzac] 20 mg PO DAILY 12/19/14 [History] Montelukast Sodium [Singulair] 10 mg PO DAILY 08/24/17 [History] Omeprazole 40 mg PO DAILY 08/24/17 [History] Albuterol Sulfate [Proair Hfa] 2 puff INHALATION RT-Q4H 03/06/18 [History] Furosemide [Lasix] 20 mg PO DAILY PRN 03/06/18 [History] Aspirin 81 mg PO DAILY 10/24/18 [History] Ipratropium Nebulized [Atrovent Nebulized 0.2 MG/ML] 0.5 mg INHALATION RT-Q6H 10/24/18 [History] Propranolol [Inderal] 10 mg PO Q6H 10/24/18 [History] FLUoxetine HCL [PROzac] 10 mg PO DAILY 04/01/19 [History] ALPRAZolam [Xanax] 0.5 mg PO TID PRN #3 tab 04/03/19 [Rx] Calcium Carb-Vit D 500Mg-200Un [Oscal 500+D] 1 each PO BID-W/MEALS tab 04/03/19 [Rx] Cefuroxime Axetil [Ceftin] 500 mg PO BID 5 Days #10 tab 04/03/19 [Rx] HYDROcodone/APAP 10-325MG [[place] 10-325] 1 tab PO Q8H PRN #6 tab 04/03/19 [Rx] Heparin Sodium,Porcine [Heparin Sodium] 5,000 unit SQ Q12HR vial 04/03/19 [Rx] INSULIN ASPART (NovoLOG) [NovoLOG (formulary)] 0 unit SQ ACHS vial 04/03/19 [Rx] Ipratropium-Albuterol Nebulize [Duoneb 0.5 mg-3 mg/3 ml Soln] 3 ml INHALATION RT-Q4H PRN ampul.neb 04/03/19 [Rx] Ipratropium-Albuterol Nebulize [Duoneb 0.5 mg-3 mg/3 ml Soln] 3 ml INHALATION RT-QID ampul.neb 04/03/19 [Rx] predniSONE 10 mg PO DIRECTED #40 tab 04/03/19 [Rx] Albuterol Inhaler [Ventolin Hfa Inhaler] 1 - 2 puff INHALATION RT-Q6H PRN #1 inhaler 04/04/19 [Rx] Follow up Appointment(s)/Referral(s): Pablo De La Garza DO [Primary Care Provider] - 04/15/19 1:00 pm (patient will be seen in the [place] office) Ja Valdez MD [STAFF PHYSICIAN] - 04/18/19 3:30 pm Brian Wakefield MD [STAFF PHYSICIAN] - 04/16/19 9:30 am (follow up for history of a fib ) Activity/Diet/Wound Care/Special Instructions: Cardiac diet activity is limited till you see your doctor Discharge Disposition: HOME WITH HOME HEALTH SERVICES
[2019-04-04] MEDS: IPRATROPIUM-ALBUTEROL 3 ML NEB INHALATION SCH (10:05)
[2019-04-04 11:12] LABS: Glucose,Whole Blood 92 mg/dL (75-99)
[2019-04-04 11:32] VITALS: BP 145/68; PULSE 60; TEMP 98.6
== END 2019-04-04 12:14 | disposition home health service (06) | DRG 190 ==
LOC: EC 21:55 → 4MS4W 23:55 → 3NMEDONC 03-31 17:38 → OBSVTOIN 04-01 11:28
PROVIDERS: ADMIT Hospitalist; ATTEND Hospitalist
DX: J44.1 Chronic obstructive pulmonary disease with (acute) exacerbation (principal); G93.41 Metabolic encephalopathy; J96.11 Chronic respiratory failure with hypoxia; J44.0 Chronic obstructive pulmonary disease with (acute) lower respiratory infection; E78.5 Hyperlipidemia, unspecified; Z86.73 Personal history of transient ischemic attack (TIA), and cerebral infarction without residual deficits; G89.29 Other chronic pain; I10 Essential (primary) hypertension; I48.0 Paroxysmal atrial fibrillation; Z87.01 Personal history of pneumonia (recurrent); J20.9 Acute bronchitis, unspecified; K21.9 Gastro-esophageal reflux disease without esophagitis; M19.90 Unspecified osteoarthritis, unspecified site; M81.0 Age-related osteoporosis without current pathological fracture; R26.9 Unspecified abnormalities of gait and mobility; Z99.81 Dependence on supplemental oxygen; R13.10 Dysphagia, unspecified; M25.511 Pain in right shoulder; M54.2 Cervicalgia; Z79.51 Long term (current) use of inhaled steroids; Z79.899 Other long term (current) drug therapy; Z79.82 Long term (current) use of aspirin; Z91.81 History of falling; G25.81 Restless legs syndrome; F41.9 Anxiety disorder, unspecified; F32.9 Major depressive disorder, single episode, unspecified; Z88.2 Allergy status to sulfonamides; Z88.8 Allergy status to other drugs, medicaments and biological substances; Z88.6 Allergy status to analgesic agent; Z91.041 Radiographic dye allergy status; M43.8X6 Other specified deforming dorsopathies, lumbar region
CPT/HCPCS: 36415; 71045; 71046; 72100; 73521; 80048; 80053; 83735; 83880; 84484; 85025; 85610; 85730; 87502; 93005; 94640; 94760; 96360; 96361; 96372; 96374; 96376; 99285

== ENCOUNTER → 2020-10-19 | Outpatient (CLI) | payer MEDICARE ==
--- NOTE | 2020-10-20 08:59 | XR ---
EXAMINATION TYPE: XR chest 2V DATE OF EXAM: 10/19/2020 COMPARISON: 04/02/2019 TECHNIQUE: PA and lateral views submitted. HISTORY: Shortness of breath FINDINGS: The lungs are clear and there is no pneumothorax, pleural effusion, or focal pneumonia. Heart size prominent there is hyperinflation. No pleural effusion or pneumothorax. Biapical pleural thickening. Diffuse osteopenia and arthropathy shoulders. Mild endplate deformity thoracolumbar junction appears chronic. IMPRESSION: 1. No acute process. Correlate for COPD.
== END | disposition home or self-care (01) ==
LOC: RADXRYALE 16:46
PROVIDERS: ATTEND Physician Assistant Medical
DX: R06.02 Shortness of breath (principal)
CPT/HCPCS: 71046

== ENCOUNTER → 2021-01-12 | Outpatient (CLI) | payer MEDICARE ==
--- NOTE | 2021-01-12 15:55 | XR ---
EXAMINATION TYPE: XR thoracic spine 2V DATE OF EXAM: 01/12/2021 COMPARISON: NONE HISTORY: Pain TECHNIQUE: 3 views submitted FINDINGS: Alignment is anatomic. There is is a superior endplate mild compression fracture of the approximate level of T11. Mild multilevel degenerative disc disease and diffuse osteopenia. Pedicles intact. IMPRESSION: 1. Findings suspicious for a mild superior endplate compression fracture T11. Recommend follow-up MRI or CT scan.
--- NOTE | 2021-01-12 16:04 | XR ---
EXAM TYPE: LUMBAR SPINE X RAY SERIES COMPARISON: NONE HISTORY: Pain TECHNIQUE: 4 views are submitted. FINDINGS: There is a superior endplate compression fracture of L2. Diffuse osteopenia with multilevel moderate to severe degenerative disc disease and facet arthropathy. Slight curvature of the spine. Vascular ca lcifications noted. No spondylolisthesis. IMPRESSION: 1. Mild to moderate superior endplate compression fracture L2 of indeterminate age could be acute cor relate with CT scan or MRI.
== END | disposition home or self-care (01) ==
LOC: RADXRYALE 14:25
PROVIDERS: ATTEND Physician Assistant Medical
DX: M54.5 Low back pain (principal); M54.6 Pain in thoracic spine; W10.9XXA Fall (on) (from) unspecified stairs and steps, initial encounter
CPT/HCPCS: 72070; 72110

== ENCOUNTER 2021-05-21 20:25 | Inpatient (IN) | payer MEDICARE ==
[2021-05-21] MEDS ORDERED: ENOXAPARIN 80 MG/0.8 ML SYRINGE SQ STA (21:27)
[2021-05-21] MEDS ORDERED: DILTIAZEM DRIP BOLUS FROM BAG 1 MG SOLN IV ONE (21:27)
[2021-05-21] MEDS ORDERED: DILTIAZEM 125 MG in SODIUM CHLORIDE 0.9% 100 ML IV SCH (21:30)
--- NOTE | 2021-05-21 21:39 | XR ---
EXAMINATION TYPE: XR chest 1V portable DATE OF EXAM: 05/21/2021 9:32 PM COMPARISON:Chest radiographs from September 10 TECHNIQUE: Frontal view of the chest. CLINICAL INDICATION:Female, 80 years old with history of dysrhythmia; FINDINGS: Lungs/Pleura: There is flattening of the diaphragm with increased lucency of the lungs. No evidence o f pneumothorax, pleural effusion or focal consolidation. Pulmonary vascularity: Unremarkable. Heart/mediastinum: Cardiomediastinal silhouette is unremarkable. Musculoskeletal:No acute osseous pathology. IMPRESSION: Chronic changes without acute pulmonary process. No significant change from prior.
[2021-05-21 21:47] LABS: Basophils % (A) 0 %; Eosinophils # (A) 0.2 k/uL (0-0.7); Eosinophils % (A) 2 %; HCT 39.1 % (34.0-46.0); Lymphocytes # (A) 1.8 k/uL (1.0-4.8); Lymphocytes % (A) 18 %; MCH 30.4 pg (25.0-35.0); MCHC 33.3 g/dL (31.0-37.0); MCV 91.3 fL (80.0-100.0); Mean Platelet Volume 7.5; Monocytes # (A) 0.7 k/uL (0-1.0); Monocytes % (A) 7 %; Neutrophils % (A) 71 %; Platelet Count 315 k/uL (150-450); RBC 4.29 m/uL (3.80-5.40); RDW 14.2 % (11.5-15.5); WBC 9.8 k/uL (3.8-10.6)
[2021-05-21] MEDS ORDERED: SODIUM CHLORIDE 0.9% 500 ML 500 ML IV STA (21:51)
[2021-05-21 21:59] LABS: Albumin 3.7 g/dL (3.5-5.0); Calcium 9.2 mg/dL (8.4-10.2); Total Bilirubin 0.9 mg/dL (0.2-1.3); Total Protein 6.3 g/dL (6.3-8.2)
[2021-05-21 22:02] LABS: Partial Thromboplastin Time 24.2 sec (22.0-30.0); Prothrombin Time 10.9 sec (9.0-12.0)
[2021-05-21 22:05] LABS: Magnesium 2.2 mg/dL (1.6-2.3); Potassium 3.8 mmol/L (3.5-5.1)
[2021-05-22] MEDS ORDERED: NITROGLYCERIN SL TABS 0.4 MG TAB SUBLINGUAL PRN (00:56)
[2021-05-22] MEDS ORDERED: ALPRAZolam 0.5 MG TAB PO STA (00:57)
[2021-05-22] MEDS: SODIUM CHLORIDE 0.9% 1,000 ML IV SCH ×2 (01:06→21:07)
[2021-05-22] MEDS ORDERED: IPRATROPIUM-ALBUTEROL 3 ML NEB INHALATION STA (07:23)
[2021-05-22] MEDS: ACETAMINOPHEN TAB 325 MG TAB PO PRN ×2 (07:26→21:18)
--- NOTE | 2021-05-22 08:18 | P.CRDCN ---
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 She presented to the emergency department with a chief complaint of palpitations, feeling like "my heart just wants to run away." Troponins negative 3. EKG revealed atrial fibrillation with a controlled ventricular rate of 81 bpm. TSH normal findings at 2.060. Labs otherwise unremarkable. Chest x-ray showing chronic changes and negative for acute cardiopulmonary process. Patient states that she does not follow with a director perioperative. However patient is a poor historian and most information was gathered per documentation in chart. Patient states that she has an appointment with a director perioperative on Monday. She was admitted under medicine services for atrial fibrillation RVR and we're consulted for continued medical management. Currently patient maintaining in sinus mechanism on cardizem drip, however patient returns to atrial fibrillation with RVR in 140's with little to no exertion. Currently patient eating breakfast showing no signs of acute distress, denies having any headache, lightheadedness, dizziness, chest pain, palpitations, shortness of breath, dyspnea with exertion, or experiencing any swelling/tingling/numbness in her extremities. Patient does have long-standing history of paroxysmal atrial fibrillation per documentation in chart dating back many years, she is not on anticoagulation and [id number] score is 5. Per RN, pt has not been on anticoagulation per family's decision based on history of falls. Lexiscan stress test completed 01/19/16 was negative for pharmacologically induced myocardial ischemia Review of systems: Pertinent positives and negatives as discussed in HPI, a complete review of systems was performed and all other systems are negative. Physical exam: Vital signs reviewed and stable. General: Nontoxic, no distress and appears stated age. Derm: Skin warm and dry, normal coloration for ethnicity. Head: Atraumatic, normocephalic and symmetric. Eyes: EOMs intact, no lid lag, and anicteric sclera Mouth: no lip lesions, mucus membranes moist Cardiovascular: regular rate and rhythm with normal S1S2, systolic murmur, positive posterior tibial pulses bilaterally, and cap refill < 2 seconds. Lungs: Respirations even, regular, and unlabored on room air. Lungs with diffuse bilateral expiratory wheezes. No rhonchi, rales, or crackles. No accessory muscle usage. Abdominal: soft, nontender to palpation, no guarding, no appreciable organomegaly Ext: ROM intact. No gross muscle atrophy, no edema, no contractures Neuro: Speech clear, face symmetrical and CN II-XII grossly intact with no noted focal neuro deficits Psych: Alert and oriented to person, place, time, and situation. Appropriate and pleasant affect. 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 -Further recommendations pending clinical course. Thank you for allowing us to participate in the care of this pleasant patient. Do not hesitate to contact us with questions. Past Medical History Past Medical History: Atrial Fibrillation, COPD, CVA/TIA, Eye Disorder, GERD/Reflux, Hyperlipidemia, Pneumonia Additional Past Medical History / Comment(s): Chronic atrial fibrillation per PMH but pt has no recollection of this, bronchiectasis, essential tremors, previous TIA, chronic lumbar back pain, past 6 months R shoulder/cervical pain, balance difficulty with falls, occasional low urinary output and uses lasix prn for this, bilateral varicose veins, dysphagia-able to take pills one at a time with water, small hiatal hernia, restless leg syndrome, seasonal ALLERGIES, History of Any Multi-Drug Resistant Organisms: None Reported Past Surgical History: Hysterectomy Additional Past Surgical History / Comment(s): 11/27/15 EGD with bx, bilateral cataracts removed with lens implants, colonoscopy with 1 benign polypectomy. Past Anesthesia/Blood Transfusion Reactions: No Reported Reaction Past Psychological History: Anxiety, Depression Additional Psychological History / Comment(s): Pt's sonSonu lives with her. She uses a cane or walker to ambulate. Smoking Status: Current some day smoker Past Alcohol Use History: None Reported Additional Past Alcohol Use History / Comment(s): Pt states she started smoking in her early 20's. She quit for several yrs, during her pregnancies and when her children were young. She smokes a cigeratte once in awhile when stressed Past Drug Use History: None Reported - Past Family History Father Family Medical History: Cancer Additional Family Medical History / Comment(s): Pt thinks father might have from stomach cancer. She was 2 yrs old when he . Sister(s) Family Medical History: Cancer Additional Family Medical History / Comment(s): Half sister with brain cancer. Mother Family Medical History: Dementia Additional Family Medical History / Comment(s): Mother had gallstones and a partial thyroidectomy for noncancerous reasons. Medications and Allergies Home Medications Medication Instructions Recorded Confirmed Type Omeprazole 40 mg PO DAILY 08/24/17 05/21/21 History Albuterol Sulfate [Proair Hfa] 2 puff INHALATION RT-Q6H PRN 03/06/18 05/21/21 History Aspirin 81 mg PO DAILY 10/24/18 05/21/21 History Ipratropium Nebulized [Atrovent 0.5 mg INHALATION RT-Q6H PRN 10/24/18 05/21/21 History Nebulized 0.2 MG/ML] Propranolol [Inderal] 10 mg PO TID 10/24/18 05/21/21 History ALPRAZolam [Xanax] 0.5 mg PO BID PRN 05/21/21 05/21/21 History Albuterol Nebulized [Ventolin 2.5 mg INHALATION RT-Q6H PRN 05/21/21 05/21/21 History Nebulized] Budesonide [Pulmicort] 0.5 mg INHALATION RT-BID 05/21/21 05/21/21 History FLUoxetine HCL [PROzac] 40 mg PO DAILY 05/21/21 05/21/21 History Allergies Allergy/AdvReac Type Severity Reaction Status Date / Time ibuprofen Allergy Unknown Verified 05/21/21 20:37 Iodinated Contrast Media Allergy Unknown Verified 05/21/21 20:37 [Iodinated Contrast- Oral and IV Dye] iodine Allergy Rash/Hives Verified 05/21/21 20:37 lorazepam [From Ativan] Allergy Hallucinati Verified 05/21/21 20:37 ons Sulfa (Sulfonamide Allergy Rash/Hives Verified 05/21/21 20:37 Antibiotics) topiramate [From Topamax] Allergy Unknown Verified 05/21/21 20:37 prednisone AdvReac DIZINESS Verified 05/21/21 20:37 zolpidem tartrate AdvReac Hallucinati Verified 05/21/21 20:37 [From Ambien] ons Physical Exam Vitals: Vital Signs Temp Pulse Pulse Resp BP BP Pulse Ox 05/22/21 03:00 97.8 F 94 18 104/60 98 05/22/21 01:51 80 16 107/57 96 05/22/21 00:42 105 H 18 112/52 98 05/21/21 22:39 118 H 20 125/63 97 05/21/21 20:26 98.6 F 131 H 22 122/97 94 L Intake and Output 05/21/21 05/22/21 05/22/21 22:59 06:59 14:59 Other: Voiding Method Toilet # Voids 1 Weight 72.575 kg 55.7 kg Results 05/21/21 21:34 05/21/21 21:34 Cardiac Enzymes 05/21/21 05/21/21 05/22/21 Range/Units 21:34 21:34 01:09 AST 20 (14-36) U/L Troponin I <0.012 <0.012 (0.000-0.034) ng/mL 05/22/21 Range/Units 03:56 AST (14-36) U/L Troponin I <0.012 (0.000-0.034) ng/mL Coagulation 05/21/21 Range/Units 21:34 PT 10.9 (9.0-12.0) sec APTT 24.2 (22.0-30.0) sec CBC 05/21/21 Range/Units 21:34 WBC 9.8 (3.8-10.6) k/uL RBC 4.29 (3.80-5.40) m/uL Hgb 13.0 (11.4-16.0) gm/dL Hct 39.1 (34.0-46.0) % Plt Count 315 (150-450) k/uL Comprehensive Metabolic Panel 05/21/21 Range/Units 21:34 Sodium 135 L (137-145) mmol/L Potassium 3.8 (3.5-5.1) mmol/L Chloride 105 (98-107) mmol/L Carbon Dioxide 23 (22-30) mmol/L BUN 13 (7-17) mg/dL Creatinine 0.85 (0.52-1.04) mg/dL Glucose 106 H (74-99) mg/dL Calcium 9.2 (8.4-10.2) mg/dL AST 20 (14-36) U/L ALT 10 (4-34) U/L Alkaline Phosphatase 63 (38-126) U/L Total Protein 6.3 (6.3-8.2) g/dL Albumin 3.7 (3.5-5.0) g/dL Current Medications Generic Name Dose Route Start Last Admin Trade Name Freq PRN Reason Stop Dose Admin Acetaminophen 650 mg 05/22/21 07:17 05/22/21 07:26 Acetaminophen Tab 325 Mg Tab PO 650 mg Q6HR PRN Administration Fever and/ or Mild Pain Diltiazem HCl 125 mg/ Sodium 125 mls @ 5 mls/hr 05/21/21 21:30 05/21/21 21:54 Chloride IV 5 mg/hr .Q24H BA 5 mls/hr Administration 5 MG/HR Sodium Chloride 1,000 mls @ 75 mls/hr 05/22/21 01:00 05/22/21 01:06 Saline 0.9% IV 75 mls/hr .[id number] BA Administration Nitroglycerin 0.4 mg 05/22/21 00:56 Nitroglycerin Sl Tabs 0.4 Mg Tab SUBLINGUAL Q5M PRN Chest Pain Intake and Output 05/21/21 05/22/21 05/22/21 22:59 06:59 14:59 Other: Voiding Method Toilet # Voids 1 Weight 72.575 kg 55.7 kg 05/21/21 21:34 05/21/21 21:34
[2021-05-22] MEDS: PROPRANOLOL 10 MG TAB PO SCH ×3 (09:16→22:45)
[2021-05-22] MEDS: ASPIRIN 81 MG PO SCH (09:16)
--- NOTE | 2021-05-22 13:56 | P.HPIM ---
History of Present Illness This is a pleasant 80 years old female with past medical history of Atrial Fibrillation not on anticoagulation, COPD, CVA/TIA, Eye Disorder, GERD/Reflux, Hyperlipidemia, bronchiectasis, essential tremors, previous TIA, chronic lumbar back pain, past 6 months R shoulder/cervical pain, balance difficulty with falls, restless leg syndrome, , Anxiety, Depression. Patient has memory problems so information were obtained with the help of her son whom I called Mr. Ascencio at [phone]. Patient and son states that the patient have shortness of breath for about a month, no chest pain, they're not sure why she is not on anticoagulation. However also she is complaining of from palpitation. No vomiting or diarrhea. No dysuria. No headache or weakness or numbness. No blurred vision or slurred speech Currently she still smoking. Denies alcohol or illicit drugs On admission she was tachycardic at 131, currently heart rate is 8205. Labs including CBC, INR, BMP, liver enzymes are unremarkable. TSH is normal at 2.0. Troponin are negative less than 0.0123. Coronavirus: None detected. Chest x-ray: Chronic changes without acute pulmonary process. No significant change from prior On admission she was started on Cardizem drip and Lovenox 72 mg 1. On normal saline at 75 mL/h Review of Systems CONSTITUTIONAL: No fever, no malaise, no fatigue. HEENT: No recent visual problems or hearing problems. Denied any sore throat. CARDIOVASCULAR: No orthopnea, PND, no palpitations, no syncope. PULMONARY: No shortness of breath, no cough, no hemoptysis. GASTROINTESTINAL: No diarrhea, no nausea, no vomiting, no abdominal pain. Normoactive bowel sounds. NEUROLOGICAL: No headaches, no weakness, no numbness. HEMATOLOGICAL: Denies any bleeding or petechiae. GENITOURINARY: Denies any burning micturition, frequency, or urgency. MUSCULOSKELETAL/RHEUMATOLOGICAL: Denies any joint pain, swelling, or any muscle pain. ENDOCRINE: Denies any polyuria or polydipsia. Past Medical History Past Medical History: Atrial Fibrillation, COPD, CVA/TIA, Eye Disorder, GERD/Reflux, Hyperlipidemia, Pneumonia Additional Past Medical History / Comment(s): Chronic atrial fibrillation per PMH but pt has no recollection of this, bronchiectasis, essential tremors, previous TIA, chronic lumbar back pain, past 6 months R shoulder/cervical pain, balance difficulty with falls, occasional low urinary output and uses lasix prn for this, bilateral varicose veins, dysphagia-able to take pills one at a time with water, small hiatal hernia, restless leg syndrome, seasonal ALLERGIES, History of Any Multi-Drug Resistant Organisms: None Reported Past Surgical History: Hysterectomy Additional Past Surgical History / Comment(s): 11/27/15 EGD with bx, bilateral cataracts removed with lens implants, colonoscopy with 1 benign polypectomy. Past Anesthesia/Blood Transfusion Reactions: No Reported Reaction Past Psychological History: Anxiety, Depression Additional Psychological History / Comment(s): Pt's son, Sonu lives with her. She uses a cane or walker to ambulate. Smoking Status: Current some day smoker Past Alcohol Use History: None Reported Additional Past Alcohol Use History / Comment(s): Pt states she started smoking in her early 20's. She quit for several yrs, during her pregnancies and when her children were young. She smokes a cigeratte once in awhile when stressed Past Drug Use History: None Reported - Past Family History Father Family Medical History: Cancer Additional Family Medical History / Comment(s): Pt thinks father might have from stomach cancer. She was 2 yrs old when he . Sister(s) Family Medical History: Cancer Additional Family Medical History / Comment(s): Half sister with brain cancer. Mother Family Medical History: Dementia Additional Family Medical History / Comment(s): Mother had gallstones and a partial thyroidectomy for noncancerous reasons. Medications and Allergies Home Medications Medication Instructions Recorded Confirmed Type Omeprazole 40 mg PO DAILY 08/24/17 05/21/21 History Albuterol Sulfate [Proair Hfa] 2 puff INHALATION RT-Q6H PRN 03/06/18 05/21/21 History Aspirin 81 mg PO DAILY 10/24/18 05/21/21 History Ipratropium Nebulized [Atrovent 0.5 mg INHALATION RT-Q6H PRN 10/24/18 05/21/21 History Nebulized 0.2 MG/ML] Propranolol [Inderal] 10 mg PO TID 10/24/18 05/21/21 History ALPRAZolam [Xanax] 0.5 mg PO BID PRN 05/21/21 05/21/21 History Albuterol Nebulized [Ventolin 2.5 mg INHALATION RT-Q6H PRN 05/21/21 05/21/21 History Nebulized] Budesonide [Pulmicort] 0.5 mg INHALATION RT-BID 05/21/21 05/21/21 History FLUoxetine HCL [PROzac] 40 mg PO DAILY 05/21/21 05/21/21 History Allergies Allergy/AdvReac Type Severity Reaction Status Date / Time ibuprofen Allergy Unknown Verified 05/21/21 20:37 Iodinated Contrast Media Allergy Unknown Verified 05/21/21 20:37 [Iodinated Contrast- Oral and IV Dye] iodine Allergy Rash/Hives Verified 05/21/21 20:37 lorazepam [From Ativan] Allergy Hallucinati Verified 05/21/21 20:37 ons Sulfa (Sulfonamide Allergy Rash/Hives Verified 05/21/21 20:37 Antibiotics) topiramate [From Topamax] Allergy Unknown Verified 05/21/21 20:37 prednisone AdvReac DIZINESS Verified 05/21/21 20:37 zolpidem tartrate AdvReac Hallucinati Verified 05/21/21 20:37 [From Ambien] ons Physical Exam Vitals: Vital Signs Temp Pulse Pulse Resp BP BP Pulse Ox 05/22/21 03:00 97.8 F 94 18 104/60 98 05/22/21 01:51 80 16 107/57 96 05/22/21 00:42 105 H 18 112/52 98 05/21/21 22:39 118 H 20 125/63 97 05/21/21 20:26 98.6 F 131 H 22 122/97 94 L Intake and Output 05/21/21 05/22/21 05/22/21 22:59 06:59 14:59 Other: Voiding Method Toilet # Voids 1 Weight 72.575 kg 55.7 kg GENERAL: The patient is alert and oriented x3, not in any acute distress. Well developed, well nourished. HEENT: Pupils are round and equally reacting to light. EOMI. No scleral icterus. No conjunctival pallor. Normocephalic, atraumatic. No pharyngeal erythema. No thyromegaly. CARDIOVASCULAR: S1 and S2 present. No murmurs, rubs, or gallops. PULMONARY: Chest is clear to auscultation, no wheezing or crackles. ABDOMEN: Soft, nontender, nondistended, normoactive bowel sounds. No palpable organomegaly. MUSCULOSKELETAL: No joint swelling or deformity. EXTREMITIES: No cyanosis, clubbing, or pedal edema. NEUROLOGICAL: Gross neurological examination did not reveal any focal deficits. SKIN: No rashes. No petechiae Results CBC & Chem 7: 05/21/21 21:34 05/21/21 21:34 Labs: Abnormal Lab Results - Last 24 Hours (Table) 05/21/21 Range/Units 21:34 Sodium 135 L (137-145) mmol/L Glucose 106 H (74-99) mg/dL Thrombosis Risk Factor Assmnt - Choose All That Apply Each Risk Factor Represents 3 Points: Age 75 years or older Thrombosis Risk Factor Assessment Total Risk Factor Score: 3 Thrombosis Risk Factor Assessment Level: Moderate Risk Assessment and Plan Assessment: A. fib with RVR, present on admission. Nicotine dependence Hyperlipidemia Essential tremor History of CVA/TIA COPD, no acute exacerbation History of GERD History of bronchiectasis Chronic back pain or neck. History of Balance difficulty with full Restless leg syndrome History of anxiety and depression Plan: This is a pleasant 80 years old female who presents with dyspnea and A. fib and RVR. Continue with Cardizem drip. And weaned per cardiology team. Continue with aspirin Cardiology consult Labs and medication were reviewed.. Continue same treatment. Continue with symptomatic treatment. Resume home medication. Monitor lytes and vitals. DVT and GI prophylaxis. Further recommendations depends on the clinical course of the patient DVT prophylaxis: Subcutaneous heparin GI Prophylaxis: Pepcid PT/OT: Pending Prognosis is guarded
[2021-05-22] MEDS ORDERED: IPRATROPIUM-ALBUTEROL 3 ML NEB INHALATION PRN (14:00)
[2021-05-22] MEDS ORDERED: methylPREDNISolone SOD SUCCI 40 MG/ML 1 ML VIAL IV STA (14:05)
[2021-05-22] MEDS: ALPRAZolam 0.25 MG TAB PO PRN ×2 (14:14→22:45)
[2021-05-22] MEDS: HEPARIN SODIUM,PORCINE/PF 5,000 UNIT/0.5 ML SYRINGE SQ SCH ×2 (16:43→21:19)
[2021-05-22] MEDS: BUDESONIDE 0.5 MG/2 ML NEBU INHALATION SCH (20:45)
[2021-05-22] MEDS: FAMOTIDINE 20 MG/2 ML VIAL IV SCH (21:18)
[2021-05-23] MEDS: ACETAMINOPHEN TAB 325 MG TAB PO PRN ×2 (04:09→18:33)
[2021-05-23] MEDS: BUDESONIDE 0.5 MG/2 ML NEBU INHALATION SCH (07:22)
--- NOTE | 2021-05-23 08:04 | P.PN ---
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 She presented to the emergency department with a chief complaint of palpitations, feeling like "my heart just wants to run away." Troponins negative 3. EKG revealed atrial fibrillation with a controlled ventricular rate of 81 bpm. TSH normal findings at 2.060. Labs otherwise unremarkable. Chest x-ray showing chronic changes and negative for acute cardiopulmonary process. Patient states that she does not follow with a passenger vessel chef. However patient is a poor historian and most information was gathered per documentation in chart. Patient states that she has an appointment with a passenger vessel chef on Monday. She was admitted under medicine services for atrial fibrillation RVR and we're consulted for continued medical management. Currently patient maintaining in sinus mechanism on cardizem drip, however patient returns to atrial fibrillation with RVR in 140's with little to no exertion. Currently patient eating breakfast showing no signs of acute distress, denies having any headache, lightheadedness, dizziness, chest pain, palpitations, shortness of breath, dyspnea with exertion, or experiencing any swelling/tingling/numbness in her extremities. Patient does have long-standing history of paroxysmal atrial fibrillation per documentation in chart dating back many years, she is not on anticoagulation and [id number] score is 5. Per RN, pt has not been on anticoagulation per family's decision based on history of falls. 05/23/21: Patient was seen and fully evaluated at the bedside this morning. She was back in sinus rhythm and denied having any complaints including chest pain, palpitations, or shortness of breath. Cardizem infusion was discontinued and patient remains on propranolol and aspirin. Patient converted to normal sinus rhythm and Heart rate has been maintained in the 60s with no further episodes of A. fib RVR. Physical exam: Vital signs reviewed and stable. General: Nontoxic, no distress and appears stated age. Derm: Skin warm and dry, normal coloration for ethnicity. Head: Atraumatic, normocephalic and symmetric. Eyes: EOMs intact, no lid lag, and anicteric sclera Mouth: no lip lesions, mucus membranes moist Cardiovascular: regular rate and rhythm with normal S1S2, systolic murmur, positive posterior tibial pulses bilaterally, and cap refill < 2 seconds. Lungs: Respirations even, regular, and unlabored on room air. Lungs with diffuse bilateral expiratory wheezes. No rhonchi, rales, or crackles. No accessory muscle usage. Abdominal: soft, nontender to palpation, no guarding, no appreciable organomegaly Ext: ROM intact. No gross muscle atrophy, no edema, no contractures Neuro: Speech clear, face symmetrical and CN II-XII grossly intact with no noted focal neuro deficits Psych: Alert and oriented to person, place, time, and situation. Appropriate and pleasant affect. Assessment and Plan of Care: Paroxysmal Atrial fibrillation with RVR Palpitations COPD CVA with no deficits TIAs GERD Hyperlipidemia Anxiety Chronic back pain Plan: -ContinueTelemetry monitoring -Cardizem infusion was discontinued and patient remains on propranolol and aspirin. -Cardiac diet -Lipid profile -Hold off on anticoagulation at this time per patient/family's request. -If Echocardiogram is normal and shows no significant abnormalities, patient may be cleared for discharge from cardiology standpoint. -Recommend outpatient follow-up with cardiology for continued long-term monit oring and management. Thank you for allowing us to participate in the care of this pleasant patient. Do not hesitate to contact us with questions. Nurse practitioner note has been reviewed by physician. Signing provider agrees with the documented findings, assessment, and plan of care. Objective - Vital Signs Vital signs: Vital Signs Temp 97.6 F 05/23/21 04:00 Pulse 64 05/23/21 04:00 Resp 18 05/23/21 04:00 BP 138/78 05/23/21 04:00 Pulse Ox 94 L 05/23/21 04:00 Intake & Output 05/22/21 05/23/21 05/23/21 18:59 06:59 18:59 Intake Total 720 240 100 Balance 720 240 100 Intake: Oral 720 240 100 Other: Voiding Method Toilet # Voids 1 1 1 # Bowel Movements 1 - Labs CBC & Chem 7: 05/21/21 21:34 05/21/21 21:34
[2021-05-23] MEDS: ASPIRIN 81 MG PO SCH (08:12)
[2021-05-23] MEDS: PROPRANOLOL 10 MG TAB PO SCH ×3 (08:12→21:32)
[2021-05-23] MEDS: FLUoxetine HCL 20 MG CAP PO SCH (08:12)
[2021-05-23] MEDS: FAMOTIDINE 20 MG/2 ML VIAL IV SCH (08:12)
[2021-05-23] MEDS: HEPARIN SODIUM,PORCINE/PF 5,000 UNIT/0.5 ML SYRINGE SQ SCH ×2 (08:12→21:35)
[2021-05-23] MEDS ORDERED: methylPREDNISolone SOD SUCCI 40 MG/ML 1 ML VIAL IV SCH (08:30)
[2021-05-23 11:29] LABS: Chol/HDL Ratio 3.46 Ratio; LDL Cholesterol,Calculated 130.8 mg/dL (0.0-131.0)
--- NOTE | 2021-05-23 11:40 | P.PN ---
Subjective This is a pleasant 80 years old female with past medical history of Atrial Fibrillation not on anticoagulation, COPD, CVA/TIA, Eye Disorder, GERD/Reflux, Hyperlipidemia, bronchiectasis, essential tremors, previous TIA, chronic lumbar back pain, past 6 months R shoulder/cervical pain, balance difficulty with falls, restless leg syndrome, , Anxiety, Depression. Patient has memory problems so information were obtained with the help of her son whom I called Mr. Ascencio at [phone]. Patient and son states that the patient have shortness of breath for about a month, no chest pain, they're not sure why she is not on anticoagulation. However also she is complaining of from palpitation. No vomiting or diarrhea. No dysuria. No headache or weakness or numbness. No blurred vision or slurred speech Currently she still smoking. Denies alcohol or illicit drugs On admission she was tachycardic at 131, currently heart rate is 8205. Labs including CBC, INR, BMP, liver enzymes are unremarkable. TSH is normal at 2.0. Troponin are negative less than 0.0123. Coronavirus: None detected. Chest x-ray: Chronic changes without acute pulmonary process. No significant change from prior On admission she was started on Cardizem drip and Lovenox 72 mg 1. On normal saline at 75 mL/h 05/23/2021 Patient still short of breath and wheezing, she is been refusing taken Solu- Medrol because of her history of ALLERGIC reaction. She is already on Symbicort and we consulted pulmonary service will put her on performist and Pulmicort Cartilage team also on the case for her atrial fibrillation, she is currently on aspirin and propranolol and heart rate is controlled. Echocardiogram still pending. She is eating 25-50% of her meals We will discontinue IV fluids and keep monitoring Objective - Vital Signs Vital signs: Vital Signs Temp 97.7 F 05/23/21 08:00 Pulse 69 05/23/21 08:00 Resp 22 05/23/21 08:00 BP 133/79 05/23/21 08:00 Pulse Ox 98 05/23/21 08:00 Intake & Output 05/22/21 05/23/21 05/23/21 18:59 06:59 18:59 Intake Total 720 240 100 Balance 720 240 100 Intake: Oral 720 240 100 Other: Voiding Method Toilet # Voids 1 1 1 # Bowel Movements 1 - Exam GENERAL: The patient is alert and oriented x3, not in any acute distress. HEENT: Pupils are round and equally reacting to light. EOMI. No scleral icterus. No conjunctival pallor. Normocephalic, atraumatic. No pharyngeal erythema. No thyromegaly. CARDIOVASCULAR: S1 and S2 present. No murmurs, rubs, or gallops. -PULMONARY: Chest is clear to auscultation, bilateral wheezing ABDOMEN: Soft, nontender, nondistended, normoactive bowel sounds. No palpable organomegaly. MUSCULOSKELETAL: No joint swelling or deformity. EXTREMITIES: No cyanosis, clubbing, or pedal edema. NEUROLOGICAL: Gross neurological examination did not reveal any focal deficits. SKIN: No rashes. no petechiae. - Labs CBC & Chem 7: 05/21/21 21:34 05/21/21 21:34 Assessment and Plan Assessment: A. fib with RVR, present on admission. Acute COPD exacerbation Nicotine dependence Hyperlipidemia Essential tremor History of CVA/TIA History of GERD History of bronchiectasis Chronic back pain or neck. History of Balance difficulty with full Restless leg syndrome History of anxiety and depression Plan: This is a pleasant 80 years old female who presents with dyspnea and A. fib and RVR. Continue with Cardizem drip. And weaned per cardiology team. Continue with aspirin Cardiology consult Pulmonary consult, continue with inhaled steroids and bronchodilator Labs and medication were reviewed.. Continue same treatment. Continue with symptomatic treatment. Resume home medication. Monitor lytes and vitals. DVT and GI prophylaxis. Further recommendations depends on the clinical course of the patient DVT prophylaxis: Subcutaneous heparin GI Prophylaxis: Pepcid PT/OT: Pending Prognosis is guarded
[2021-05-23] MEDS: IPRATROPIUM-ALBUTEROL 3 ML NEB INHALATION SCH ×5 (11:47→22:40)
--- NOTE | 2021-05-23 13:42 | P.CNPUL ---
History of Present Illness Consult date: 05/23/21 Requesting physician: Rhys Hernandez Reason for consult: dyspnea, COPD Chief complaint: Palpitations, shortness of breath History of present illness: This is a pleasant 80-year-old female patient who is somewhat of a poor historian. She does have a history of COPD with an FEV1 value of 49% of pre dicted which is 0.93 L. She is on home oxygen and she previously been seen in our office for her COPD. She is not been there quite some time. She follows with Dr. De La Garza as her primary care provider. She has a history of CVA/TIA, gastroesophageal reflux disease, hyperlipidemia, chronic back pain, anxiety and paroxysmal atrial fibrillation not on anticoagulants in the outpatient setting due to falls. She was admitted for palpitations and was found to have atrial fibrillation with rapid ventricular response. She was initially on a Cardizem infusion. She is seen today in consultation on the selective care unit. She is awake. Alert. No acute distress. Maintaining O2 saturations up to 99% on 2 L/m per nasal cannula. She's afebrile. Current heart rate in the 60s. Blood pressure stable. X-ray revealed some chronic changes but no acute pulmonary process. White count 9.8. Hemoglobin 13.0. Sodium 135. Potassium 3.8. Creatinine 0.85. Glucose 106. Troponins negative 3. Coronavirus by PCR not detected. She's been initiated on bronchodilators, subcu heparin for DVT prop hylaxis. She has declined steroids. Review of Systems REVIEW OF SYSTEMS: CONSTITUTIONAL: Denies any recent significant weight loss or weight gain. EYES: Denies change in vision. EARS, NOSE, MOUTH, THROAT: Denies headaches, denies sore throat. CARDIOVASCULAR: Positive for heart palpitations RESPIRATORY: Positive for shortness of breath, cough, congestion no hemoptysis. GASTROINTESTINAL: Denies change in appetite, denies abdominal pain GENITOURINARY: Denies hematuria, denies infections. MUSKULOSKELETAL: Denies pain, denies swelling. INTEGUMENTARY: Denies rash, denies eczema. NEUROLOGICAL: Denies recent memory loss, no recent seizure activity. PSYCHIATRIC: Denies anxiety, denies depression. HEMATOLOGIC/LYMPHATIC: Denies anemia, denies enlarged lymph nodes. Past Medical History Past Medical History: Atrial Fibrillation, COPD, CVA/TIA, Eye Disorder, GERD/Reflux, Hyperlipidemia, Pneumonia Additional Past Medical History / Comment(s): Chronic atrial fibrillation per PMH but pt has no recollection of this, bronchiectasis, essential tremors, previous TIA, chronic lumbar back pain, past 6 months R shoulder/cervical pain, balance difficulty with falls, occasional low urinary output and uses lasix prn for this, bilateral varicose veins, dysphagia-able to take pills one at a time with water, small hiatal hernia, restless leg syndrome, seasonal ALLERGIES, History of Any Multi-Drug Resistant Organisms: None Reported Past Surgical History: Hysterectomy Additional Past Surgical History / Comment(s): 11/27/15 EGD with bx, bilateral cataracts removed with lens implants, colonoscopy with 1 benign polypectomy. Past Anesthesia/Blood Transfusion Reactions: No Reported Reaction Past Psychological History: Anxiety, Depression Additional Psychological History / Comment(s): Pt's sonSonu lives with her. She uses a cane or walker to ambulate. Smoking Status: Current some day smoker Past Alcohol Use History: None Reported Additional Past Alcohol Use History / Comment(s): Pt states she started smoking in her early 20's. She quit for several yrs, during her pregnancies and when her children were young. She smokes a cigeratte once in awhile when stressed Past Drug Use History: None Reported - Past Family History Father Family Medical History: Cancer Additional Family Medical History / Comment(s): Pt thinks father might have from stomach cancer. She was 2 yrs old when he . Sister(s) Family Medical History: Cancer Additional Family Medical History / Comment(s): Half sister with brain cancer. Mother Family Medical History: Dementia Additional Family Medical History / Comment(s): Mother had gallstones and a partial thyroidectomy for noncancerous reasons. Medications and Allergies Home Medications Medication Instructions Recorded Confirmed Type Omeprazole 40 mg PO DAILY 08/24/17 05/21/21 History Albuterol Sulfate [Proair Hfa] 2 puff INHALATION RT-Q6H PRN 03/06/18 05/21/21 History Aspirin 81 mg PO DAILY 10/24/18 05/21/21 History Ipratropium Nebulized [Atrovent 0.5 mg INHALATION RT-Q6H PRN 10/24/18 05/21/21 History Nebulized 0.2 MG/ML] Propranolol [Inderal] 10 mg PO TID 10/24/18 05/21/21 History ALPRAZolam [Xanax] 0.5 mg PO BID PRN 05/21/21 05/21/21 History Albuterol Nebulized [Ventolin 2.5 mg INHALATION RT-Q6H PRN 05/21/21 05/21/21 History Nebulized] Budesonide [Pulmicort] 0.5 mg INHALATION RT-BID 05/21/21 05/21/21 History FLUoxetine HCL [PROzac] 40 mg PO DAILY 05/21/21 05/21/21 History Allergies Allergy/AdvReac Type Severity Reaction Status Date / Time ibuprofen Allergy Unknown Verified 05/21/21 20:37 Iodinated Contrast Media Allergy Unknown Verified 05/21/21 20:37 [Iodinated Contrast- Oral and IV Dye] iodine Allergy Rash/Hives Verified 05/21/21 20:37 lorazepam [From Ativan] Allergy Hallucinati Verified 05/21/21 20:37 ons Sulfa (Sulfonamide Allergy Rash/Hives Verified 05/21/21 20:37 Antibiotics) topiramate [From Topamax] Allergy Unknown Verified 05/21/21 20:37 prednisone AdvReac DIZINESS Verified 05/21/21 20:37 zolpidem tartrate AdvReac Hallucinati Verified 05/21/21 20:37 [From Ambien] ons Physical Exam Vitals: Vital Signs Temp Pulse Pulse Resp BP Pulse Ox 05/23/21 12:06 68 05/23/21 11:55 66 05/23/21 11:33 97.7 F 68 22 149/76 99 05/23/21 08:00 97.7 F 69 22 133/79 98 05/23/21 04:00 97.6 F 64 18 138/78 94 L 05/23/21 00:00 97.6 F 64 19 126/66 98 05/22/21 20:46 60 16 05/22/21 20:00 96.5 F L 66 22 166/80 97 05/22/21 16:03 97.5 F L 60 20 129/74 96 Intake and Output 05/22/21 05/23/21 05/23/21 22:59 06:59 14:59 Intake Total 480 220 Balance 480 220 Intake: Oral 480 220 Other: Voiding Method Toilet Toilet # Voids 1 1 3 # Bowel Movements 2 GENERAL EXAM: Alert, pleasant 80-year-old female patient, or historian, currently on 2 L nasal cannula, comfortable in no apparent distress. HEAD: Normocephalic. EYES: Normal reaction of pupils, equal size. NOSE: Clear with pink turbinates. THROAT: No erythema or exudates. NECK: No masses, no JVD. CHEST: No chest wall deformity. LUNGS: Equal air entry with no crackles, wheeze, rhonchi or dullness. CVS: S1 and S2 normal with no audible murmur, regular rhythm. ABDOMEN: No hepatosplenomegaly, normal bowel sounds, no guarding or rigidity. SPINE: No scoliosis or deformity SKIN: No rashes CENTRAL NERVOUS SYSTEM: No focal deficits, tone is normal in all 4 extremities. EXTREMITIES: There is no peripheral edema. No clubbing, no cyanosis. Peripheral pulses are intact. Results - Laboratory Findings CBC and BMP: 05/21/21 21:34 05/21/21 21:34 PT/INR, D-dimer PT 10.9 sec (9.0-12.0) 05/21/21 21:34 INR 1.0 (<1.2) 05/21/21 21:34 Abnormal lab findings: Abnormal Labs 05/21/21 05/23/21 21:34 08:38 Sodium 135 L Glucose 106 H Cholesterol 212.00 H HDL Cholesterol 61.20 H - Diagnostic Findings Chest x-ray: image reviewed (No acute pulmonary process) Assessment and Plan Assessment: 1 Paroxysmal atrial fibrillation with a rapid ventricular response 2 Acute exacerbation of chronic obstructive pulmonary disease, oxygen dependent, FEV1 value 0.93 L, 49% of predicted 3 Acute on chronic hypoxemic respiratory failure secondary to above 4 Chronic tobacco dependence 5 History of CVA/TIA 6 History of anxiety/depression 7 Hyperlipidemia 8 Essential tremors 9 Chronic back pain 10 History of falls Plan: The patient was seen and evaluated Chest x-ray reveals no acute process Continue to titrate the FiO2 as tolerated Continue bronchodilators Declines steroids We will continue to follow and make further recommendations based on her clinical status I, the cosigning physician, performed a [facility] & [facility] Lungs sounds are clear. Maintaining good O2 saturations in the 90s on 2 L/m per nasal cannula. I discussed the assessment and plan of care with my nurse practitioner, Shonna Rowe. I attest to the above consultation as dictated by her. Time with Patient: Greater than 30
[2021-05-23] MEDS: BUDESONIDE 1 MG/2 ML NEBU INHALATION SCH (20:10)
[2021-05-23] MEDS: FORMOTEROL FUMARATE 20 MCG/2 ML NEBU INHALATION SCH (20:10)
[2021-05-23] MEDS: ALPRAZolam 0.25 MG TAB PO PRN (21:32)
[2021-05-23] MEDS: FAMOTIDINE 20 MG TAB PO SCH (21:35)
[2021-05-24] MEDS: IPRATROPIUM-ALBUTEROL 3 ML NEB INHALATION SCH ×4 (03:37→15:38)
[2021-05-24] MEDS: FORMOTEROL FUMARATE 20 MCG/2 ML NEBU INHALATION SCH (08:04)
[2021-05-24] MEDS: BUDESONIDE 1 MG/2 ML NEBU INHALATION SCH (08:04)
[2021-05-24 08:08] LABS: HGB 12.8 gm/dL (11.4-16.0); MCH 29.6 pg (25.0-35.0); MCV 92.4 fL (80.0-100.0); Mean Platelet Volume 7.8; Platelet Count 286 k/uL (150-450); RBC 4.33 m/uL (3.80-5.40); RDW 14.1 % (11.5-15.5); WBC 5.4 k/uL (3.8-10.6)
[2021-05-24] MEDS: HEPARIN SODIUM,PORCINE/PF 5,000 UNIT/0.5 ML SYRINGE SQ SCH (08:20)
[2021-05-24] MEDS: FLUoxetine HCL 20 MG CAP PO SCH (08:20)
[2021-05-24] MEDS: PROPRANOLOL 10 MG TAB PO SCH ×2 (08:20→17:11)
[2021-05-24] MEDS: FAMOTIDINE 20 MG TAB PO SCH (08:21)
[2021-05-24] MEDS: ASPIRIN 81 MG PO SCH (08:21)
[2021-05-24] MEDS: ALPRAZolam 0.25 MG TAB PO PRN (08:21)
[2021-05-24 08:24] LABS: ALT 8 U/L (4-34); AST 16 U/L (14-36); African American GFR (CKD) 81 (>60 ml/min/1.73 sqM); Albumin 3.2 g/dL (3.5-5.0); Alkaline Phosphatase 67 U/L (38-126); Anion Gap 2 mmol/L; Blood Urea Nitrogen 12 mg/dL (7-17); C Reactive Protein 0.8 mg/dL (<1.0); Calcium 9.1 mg/dL (8.4-10.2); Carbon Dioxide 33 mmol/L (22-30); Chloride 103 mmol/L (98-107); Glucose 91 mg/dL (74-99); Magnesium 2.2 mg/dL (1.6-2.3); Non-African American GFR(CKD) 70 (>60 ml/min/1.73 sqM); Potassium 4.2 mmol/L (3.5-5.1); Sodium 138 mmol/L (137-145); Total Bilirubin 0.6 mg/dL (0.2-1.3); Total Protein 5.6 g/dL (6.3-8.2)
--- NOTE | 2021-05-24 13:56 | P.PN ---
Subjective Progress Note Date: 05/24/21 88-year-old here patient with known history of COPD with an FEV1 of 49% of predicted is known to me and the patient sees me in the office on outpatient basis. The patient was hospital because of shortness of breath and palpitation. She is known to have history of CVA, hyperlipidemia, chronic back pain and chronic anxiety. The patient also has history of paroxysmal atrial fibrillation and she has not been receiving any form of anticoagulation outpatient basis due to increased risk of falls. She came into the hospital because of A. fib RVR. The patient was treated with Cardizem infusion. Clinically she is improving and she is back to her baseline. She was not given any form of steroids and an tibiotics. She was given her bronchodilators. Troponin times he has been negative. COVID 19 testing is also been negative. On today's evaluation, the white cell count of 5.4 with a 12.8 and a platelet count of 26. BUN is at 12 with a creatinine of 0.80 sodium is at 138. The patient has no specific complaints. She is improved considerably. Objective - Vital Signs Vital signs: Vital Signs Temp 97.5 F L 05/24/21 03:55 Pulse 72 05/24/21 11:44 Resp 16 05/24/21 03:55 BP 125/68 05/24/21 03:55 Pulse Ox 95 05/24/21 03:55 Intake & Output 05/23/21 05/24/21 05/24/21 18:59 06:59 18:59 Intake Total 220 240 240 Balance 220 240 240 Intake: Oral 220 240 240 Other: Voiding Method Toilet # Voids 3 1 1 # Bowel Movements 2 - Exam GENERAL EXAM: Alert, pleasant 80-year-old female patient, or historian, currently on 2 L nasal cannula, comfortable in no apparent distress. HEAD: Normocephalic. EYES: Normal reaction of pupils, equal size. NOSE: Clear with pink turbinates. THROAT: No erythema or exudates. NECK: No masses, no JVD. CHEST: No chest wall deformity. LUNGS: Equal air entry with no crackles, wheeze, rhonchi or dullness. CVS: S1 and S2 normal with no audible murmur, regular rhythm. The patient is back to the normal sinus rhythm with a rate of 68. ABDOMEN: No hepatosplenomegaly, normal bowel sounds, no guarding or rigidity. SPINE: No scoliosis or deformity SKIN: No rashes CENTRAL NERVOUS SYSTEM: No focal deficits, tone is normal in all 4 extremities. EXTREMITIES: There is no peripheral edema. No clubbing, no cyanosis. Peripheral pulses are intact. - Labs CBC & Chem 7: 05/24/21 06:28 05/24/21 06:28 Labs: Abnormal Lab Results - Last 24 Hours (Table) 05/24/21 Range/Units 06:28 Carbon Dioxide 33 H (22-30) mmol/L Total Protein 5.6 L (6.3-8.2) g/dL Albumin 3.2 L (3.5-5.0) g/dL Assessment and Plan Plan: 1 shortness of breath most likely secondary to Paroxysmal atrial fibrillation with a rapid ventricular response, converted back to normal sinus rhythm 2 stable chronic obstructive pulmonary disease, oxygen dependent, FEV1 value 0.93 L, 49% of predicted 3 Acute on chronic hypoxemic respiratory failure secondary to above, likely secondary to above and the patient is currently on 2 L about 2 by nasal cannula 4 Chronic tobacco dependence 5 History of CVA/TIA 6 History of anxiety/depression 7 Hyperlipidemia 8 Essential tremors 9 Chronic back pain 10 History of falls Plan: Clinically stable and the patient is back in the normal sinus rhythm The need for anticoagulation will be kept up to cardiology Continue bronchodilators Resume all medications at time of discharge We will continue to follow and make further recommendations based on her clinical status temperature from a pulmonary standpoint and I will be glad to follow-up this patient on outpatient basis
[2021-05-24 14:51] VITALS: RESP 20
[2021-05-24 14:53] VITALS: BP 101/60; TEMP 97.9
[2021-05-24 15:22] LABS: Chol/HDL Ratio 3.61 Ratio; LDL Cholesterol,Calculated 130.2 mg/dL (0.0-131.0)
[2021-05-24 15:40] VITALS: PULSE 72
--- NOTE | 2021-05-24 20:59 | P.DS ---
Providers Date of admission: 05/22/21 07:31 Attending physician: Rhys Hernandez Consults: 05/22/21 00:56 Consult Physician Routine Consulting Provider: Lyndsay Diaz Consult Reason/Comments: Atrial fibrillation with rapid ventricular rate Do you want consulting provider notified?: Yes 05/23/21 08:20 Consult Physician Urgent Consulting Provider: Cheng Gomez Consult Reason/Comments: copd , refusing steroids because of allergy Do you want consulting provider notified?: Yes Primary care physician: Pablo De La Garza [facility] Course: Diagnoses: A. fib with RVR, present on admission. Not on antiplatelet admission per family request. Change to sinus rhythm and cleared by well servicing rig operator for discharge Acute COPD exacerbation. Resolved Nicotine dependence Hyperlipidemia Essential tremor History of CVA/TIA History of GERD History of bronchiectasis Chronic back pain or neck. History of Balance difficulty with full Restless leg syndrome History of anxiety and depression Hospital course: This is a pleasant 80 years old female with past medical history of Atrial Fibrillation not on anticoagulation, COPD, CVA/TIA, Eye Disorder, GERD/Reflux, Hyperlipidemia, bronchiectasis, essential tremors, previous TIA, chronic lumbar back pain, past 6 months R shoulder/cervical pain, balance difficulty with falls, restless leg syndrome, , Anxiety, Depression. Patient has memory problems so information were obtained with the help of her son whom I called Mr. Ascencio at [phone]. Patient presents with worsening dyspnea secondary to COPD exacerbation and A. fib with RVR, she was sedated with normal saline and beta becky and she slipped to sinus rhythm and she was placed back on her propranolol dose 10 mg 3 times a day and aspirin 81 mg. Cartilage team discussed the need for anticoagulation with patient and family and they declined, please refer to their note. Also patient was ALLERGIC to steroids so she was treated with piriformis and Pulmicort. Today there was an is completely resolved, patient is fully awake and oriented. She is with no chest pain or dyspnea. Heart rate is controlled. Discussed with pulmonary and cardiology teams and both to her for discharge, patient also agreeable to go to home today. Problems and management plan were discussed with the patient and he verbalized understanding and acceptance Patient was found stable and can be discharged home however he needs follow-up as an outpatient. Patient was instructed to follow up with PCP Dr. De La Garza within one week and patient agrees Patient was instructed to follow up with product inspection coordinator Dr. Gomez and cardiolo gist Dr. Melara in one to 2 weeks and she agrees to call and make her own appointment. She asked staff to help her with the appointments. Physical exam Gen: patient is a AAOx3, no distress CVS: S1-S2, RRR, no murmur Lungs: B/L CTA, no wheezing Abdomen: soft, no distention, no tenderness, positive bowel sounds Extremity: no leg edema or induration Time spent more than 35 minutes Plan - Discharge Summary Discharge Rx Participant: No New Discharge Prescriptions: Continue RX: Omeprazole 40 mg PO DAILY RX: Albuterol Sulfate [Proair Hfa] 2 puff INHALATION RT-Q6H PRN PRN Reason: Shortness Of Breath RX: Ipratropium Nebulized [Atrovent Nebulized 0.2 MG/ML] 0.5 mg INHALATION RT-Q6H PRN PRN Reason: Shortness Of Breath RX: Propranolol [Inderal] 10 mg PO TID RX: Aspirin 81 mg PO DAILY RX: Albuterol Nebulized [Ventolin Nebulized] 2.5 mg INHALATION RT-Q6H PRN PRN Reason: Shortness Of Breath RX: ALPRAZolam [Xanax] 0.5 mg PO BID PRN PRN Reason: Anxiety RX: FLUoxetine HCL [PROzac] 40 mg PO DAILY RX: Budesonide [Pulmicort] 0.5 mg INHALATION RT-BID Discharge Medication List RX: Omeprazole 40 mg PO DAILY 08/24/17 [History] RX: Albuterol Sulfate [Proair Hfa] 2 puff INHALATION RT-Q6H PRN 03/06/18 [History] RX: Aspirin 81 mg PO DAILY 10/24/18 [History] RX: Ipratropium Nebulized [Atrovent Nebulized 0.2 MG/ML] 0.5 mg INHALATION RT- Q6H PRN 10/24/18 [History] RX: Propranolol [Inderal] 10 mg PO TID 10/24/18 [History] RX: ALPRAZolam [Xanax] 0.5 mg PO BID PRN 05/21/21 [History] RX: Albuterol Nebulized [Ventolin Nebulized] 2.5 mg INHALATION RT-Q6H PRN 05/21/21 [History] RX: Budesonide [Pulmicort] 0.5 mg INHALATION RT-BID 05/21/21 [History] RX: FLUoxetine HCL [PROzac] 40 mg PO DAILY 05/21/21 [History] Follow up Appointment(s)/Referral(s): Tony Melara MD [STAFF PHYSICIAN] - 06/04/21 1:45 pm (MONDAY ) Cheng Gomez DO [Doctor of Osteopathic Medicine] - 05/26/21 3:30 pm (MONDAY- APPOINTMENT WAS MADE PRIOR TO ADMISSION) Pablo De La Garza DO [Primary Care Provider] - 05/28/21 3:20 pm (MONDAY) Patient Instructions/Handouts: A-fib (Atrial Fibrillation) (DC), COPD (Chronic Obstructive Pulmonary Disease) (DC) Activity/Diet/Wound Care/Special Instructions: Heart healthy diet Activity is restricted till you see your doctor Discharge Disposition: HOME SELF-CARE
--- NOTE | 2021-06-16 14:59 | ECHOF ---
Referral Reason:Evaluate structure and function of heart, atrial f MEASUREMENTS -------- HEIGHT: 157.5 cm WEIGHT: 55.3 kg BP: 107/55 RVIDd: 2.7 cm (< 3.3) IVSd: 1.4 cm (0.6 - 1.1) LVIDd: 3.9 cm (3.9 - 5.3) LVPWd: 1.3 cm (0.6 - 1.1) IVSs: 1.8 cm LVIDs: 2.7 cm LVPWs: 1.7 cm LAESV Index (A-L): 29.41 ml/m Ao Diam: 3.4 cm (2.0 - 3.7) AV Cusp: 1.9 cm (1.5 - 2.6) LA Diam: 3.3 cm (2.7 - 3.8) MV EXCURSION: 14.414 mm (> 18.000) MV EF SLOPE: 83 mm/s (70 - 150) EPSS: 0.9 cm MV E Nezo: 0.57 m/s MV DecT: 242 ms MV A Enzo: 0.91 m/s MV E/A Ratio: 0.63 RAP: 5.00 mmHg RVSP: 18.28 mmHg FINDINGS -------- Sinus rhythm. This was a technically adequate study. The left ventricular size is normal. There is moderate concentric left ventricular hypertrophy. O verall left ventricular systolic function is mildly impaired with, an EF between 45 - 50 %. Global hypokinesis The right ventricle is normal in size. LA is midly dilated 29-33ml/m2. The right atrial size is normal. Interatrial and interventricular septum intact. There is no evidence of aortic regurgitation. There is no evidence of aortic stenosis. Mild mitral regurgitation is present. Mild tricuspid regurgitation present. There is no evidence of pulmonary hypertension. The right v entricular systolic pressure, as measured by Doppler, is 18.28mmHg. There is no pulmonic regurgitation present. The aortic root size is normal. IVC Not well visulized. There is no pericardial effusion. CONCLUSIONS -------- 1. The left ventricular size is normal. 2. There is moderate concentric left ventricular hypertrophy. 3. Overall left ventricular systolic function is mildly impaired with, an EF between 45 - 50 %. 4. LA is midly dilated 29-33ml/m2. 5. Mild mitral regurgitation is present. 6. Mild tricuspid regurgitation present. SPEAR FISHER: Lolis Dent RDCS
--- NOTE | 2021-07-02 08:36 | ED ---
SOB HPI - General Chief Complaint: Shortness of Breath Stated Complaint: Shortness of Breath Time Seen by Provider: 05/21/21 21:21 Source: EMS Mode of arrival: EMS Limitations: no limitations - History of Present Illness Initial Comments: 's patient is an 80-year-old woman who comes also evaluated for worsening shortness of breath and generalized weakness. Patient states is been going on over the course the evening. She has tried using breathing treatments without much relief. In addition, patient is had weakness and has had some recent falls. Denies injury. No chest pain. No fever or chills. No productive cough. She has not noted change in urination or bowel movements. MD Complaint: shortness of breath -: hour(s) Severity scale (1-10): 0 Consistency: constant Improves With: nothing Worsens With: lying flat Known History Of: COPD Treatments Prior to Arrival: bronchodilator - Related Data Home Medications Medication Instructions Recorded Confirmed Omeprazole 40 mg PO DAILY 08/24/17 05/21/21 Albuterol Sulfate [Proair Hfa] 2 puff INHALATION RT-Q6H PRN 03/06/18 05/21/21 Aspirin 81 mg PO DAILY 10/24/18 05/21/21 Ipratropium Nebulized [Atrovent 0.5 mg INHALATION RT-Q6H PRN 10/24/18 05/21/21 Nebulized 0.2 MG/ML] Propranolol [Inderal] 10 mg PO TID 10/24/18 05/21/21 ALPRAZolam [Xanax] 0.5 mg PO BID PRN 05/21/21 05/21/21 Albuterol Nebulized [Ventolin 2.5 mg INHALATION RT-Q6H PRN 05/21/21 05/21/21 Nebulized] Budesonide [Pulmicort] 0.5 mg INHALATION RT-BID 05/21/21 05/21/21 FLUoxetine HCL [PROzac] 40 mg PO DAILY 05/21/21 05/21/21 Allergies Allergy/AdvReac Type Severity Reaction Status Date / Time ibuprofen Allergy Unknown Verified 05/21/21 20:37 Iodinated Contrast Media Allergy Unknown Verified 05/21/21 20:37 [Iodinated Contrast- Oral and IV Dye] iodine Allergy Rash/Hives Verified 05/21/21 20:37 lorazepam [From Ativan] Allergy Hallucinati Verified 05/21/21 20:37 ons Sulfa (Sulfonamide Allergy Rash/Hives Verified 05/21/21 20:37 Antibiotics) topiramate [From Topamax] Allergy Unknown Verified 05/21/21 20:37 prednisone AdvReac DIZINESS Verified 05/21/21 20:37 zolpidem tartrate AdvReac Hallucinati Verified 05/21/21 20:37 [From Ambien] ons Review of Systems ROS Statement: Those systems with pertinent positive or pertinent negative responses have been documented in the HPI. ROS Other: All systems not noted in ROS Statement are negative. Constitutional: Reports: weakness. Denies: fever, chills Respiratory: Reports: dyspnea. Denies: cough, wheezes Cardiovascular: Reports: palpitations, orthopnea. Denies: chest pain, edema, syncope Gastrointestinal: Denies: abdominal pain, vomiting, diarrhea Genitourinary: Denies: dysuria, hematuria Musculoskeletal: Reports: back pain (Chronic) Skin: Denies: rash Neurological: Denies: headache, weakness, numbness Past Medical History Past Medical History: Atrial Fibrillation, COPD, CVA/TIA, Eye Disorder, GERD/Reflux, Hyperlipidemia, Pneumonia Additional Past Medical History / Comment(s): Chronic atrial fibrillation per PMH but pt has no recollection of this, bronchiectasis, essential tremors, previ ous TIA, chronic lumbar back pain, past 6 months R shoulder/cervical pain, balance difficulty with falls, occasional low urinary output and uses lasix prn for this, bilateral varicose veins, dysphagia-able to take pills one at a time with water, small hiatal hernia, restless leg syndrome, seasonal ALLERGIES, History of Any Multi-Drug Resistant Organisms: None Reported Past Surgical History: Hysterectomy Additional Past Surgical History / Comment(s): 11/27/15 EGD with bx, bilateral cataracts removed with lens implants, colonoscopy with 1 benign polypectomy. Past Anesthesia/Blood Transfusion Reactions: No Reported Reaction Past Psychological History: Anxiety, Depression Additional Psychological History / Comment(s): Pt's sonSonu lives with her. She uses a cane or walker to ambulate. Smoking Status: Current some day smoker Past Alcohol Use History: None Reported Additional Past Alcohol Use History / Comment(s): Pt states she started smoking in her early 20's. She quit for several yrs, during her pregnancies and when her children were young. She smokes a cigeratte once in awhile when stressed Past Drug Use History: None Reported - Past Family History Father Family Medical History: Cancer Additional Family Medical History / Comment(s): Pt thinks father might have from stomach cancer. She was 2 yrs old when he . Sister(s) Family Medical History: Cancer Additional Family Medical History / Comment(s): Half sister with brain cancer. Mother Family Medical History: Dementia Additional Family Medical History / Comment(s): Mother had gallstones and a partial thyroidectomy for noncancerous reasons. General Exam Limitations: no limitations General appearance: alert, in no apparent distress Head exam: Present: atraumatic, normocephalic Eye exam: Present: normal appearance. Absent: scleral icterus, conjunctival i njection ENT exam: Present: normal oropharynx Neck exam: Present: normal inspection Respiratory exam: Present: respiratory distress (Mild tachypnea), rales. Absent: wheezes, rhonchi, stridor, accessory muscle use, decreased breath sounds Cardiovascular Exam: Present: tachycardia, irregular rhythm, systolic murmur. Absent: diastolic murmur, rubs, gallop GI/Abdominal exam: Present: soft. Absent: distended, tenderness, guarding, rebound, rigid, mass Extremities exam: Present: normal inspection, normal capillary refill. Absent: pedal edema, calf tenderness Back exam: Present: normal inspection. Absent: CVA tenderness (R), CVA tenderness (L) Neurological exam: Present: alert Skin exam: Present: warm, dry, intact, normal color. Absent: rash Course Vital Signs 05/21/21 05/21/21 05/22/21 20:26 22:39 00:42 Temperature 98.6 F Pulse Rate 131 H 118 H 105 H Respiratory 22 20 18 Rate Blood Pressure 122/97 125/63 112/52 O2 Sat by Pulse 94 L 97 98 Oximetry 05/22/21 01:51 Temperature Pulse Rate 80 Respiratory 16 Rate Blood Pressure 107/57 O2 Sat by Pulse 96 Oximetry Medical Decision Making - Medical Decision Making Patient is an 80-year-old woman here with increasing dyspnea and some generalized weakness. Found to have A. fib with RVR. Patient be admitted to have rate control. Also cardiology consultation. - Lab Data Result diagrams: 05/24/21 06:28 05/24/21 06:28 Lab Results 05/21/21 05/21/21 05/21/21 Range/Units 21:34 21:34 21:34 WBC 9.8 (3.8-10.6) k/uL RBC 4.29 (3.80-5.40) m/uL Hgb 13.0 (11.4-16.0) gm/dL Hct 39.1 (34.0-46.0) % MCV 91.3 (80.0-100.0) fL MCH 30.4 (25.0-35.0) pg MCHC 33.3 (31.0-37.0) g/dL RDW 14.2 (11.5-15.5) % Plt Count 315 (150-450) k/uL MPV 7.5 Neutrophils % 71 % Lymphocytes % 18 % Monocytes % 7 % Eosinophils % 2 % Basophils % 0 % Neutrophils # 7.0 (1.3-7.7) k/uL Lymphocytes # 1.8 (1.0-4.8) k/uL Monocytes # 0.7 (0-1.0) k/uL Eosinophils # 0.2 (0-0.7) k/uL Basophils # 0.0 (0-0.2) k/uL PT 10.9 (9.0-12.0) sec INR 1.0 (<1.2) APTT 24.2 (22.0-30.0) sec Sodium 135 L (137-145) mmol/L Potassium 3.8 (3.5-5.1) mmol/L Chloride 105 (98-107) mmol/L Carbon Dioxide 23 (22-30) mmol/L Anion Gap 7 mmol/L BUN 13 (7-17) mg/dL Creatinine 0.85 (0.52-1.04) mg/dL Est GFR (CKD-EPI)AfAm 75 (>60 ml/min/1.73 sqM) Est GFR (CKD-EPI)NonAf 65 (>60 ml/min/1.73 sqM) Glucose 106 H (74-99) mg/dL Calcium 9.2 (8.4-10.2) mg/dL Magnesium 2.2 (1.6-2.3) mg/dL Total Bilirubin 0.9 (0.2-1.3) mg/dL AST 20 (14-36) U/L ALT 10 (4-34) U/L Alkaline Phosphatase 63 (38-126) U/L Troponin I (0.000-0.034) ng/mL Total Protein 6.3 (6.3-8.2) g/dL Albumin 3.7 (3.5-5.0) g/dL TSH 2.060 (0.465-4.680) mIU/L Coronavirus (PCR) (Not Detectd) 05/21/21 05/21/21 05/22/21 Range/Units 21:34 22:04 01:09 WBC (3.8-10.6) k/uL RBC (3.80-5.40) m/uL Hgb (11.4-16.0) gm/dL Hct (34.0-46.0) % MCV (80.0-100.0) fL MCH (25.0-35.0) pg MCHC (31.0-37.0) g/dL RDW (11.5-15.5) % Plt Count (150-450) k/uL MPV Neutrophils % % Lymphocytes % % Monocytes % % Eosinophils % % Basophils % % Neutrophils # (1.3-7.7) k/uL Lymphocytes # (1.0-4.8) k/uL Monocytes # (0-1.0) k/uL Eosinophils # (0-0.7) k/uL Basophils # (0-0.2) k/uL PT (9.0-12.0) sec INR (<1.2) APTT (22.0-30.0) sec Sodium (137-145) mmol/L Potassium (3.5-5.1) mmol/L Chloride (98-107) mmol/L Carbon Dioxide (22-30) mmol/L Anion Gap mmol/L BUN (7-17) mg/dL Creatinine (0.52-1.04) mg/dL Est GFR (CKD-EPI)AfAm (>60 ml/min/1.73 sqM) Est GFR (CKD-EPI)NonAf (>60 ml/min/1.73 sqM) Glucose (74-99) mg/dL Calcium (8.4-10.2) mg/dL Magnesium (1.6-2.3) mg/dL Total Bilirubin (0.2-1.3) mg/dL AST (14-36) U/L ALT (4-34) U/L Alkaline Phosphatase (38-126) U/L Troponin I <0.012 <0.012 (0.000-0.034) ng/mL Total Protein (6.3-8.2) g/dL Albumin (3.5-5.0) g/dL TSH (0.465-4.680) mIU/L Coronavirus (PCR) Not Detected (Not Detectd) 05/22/21 Range/Units 03:56 WBC (3.8-10.6) k/uL RBC (3.80-5.40) m/uL Hgb (11.4-16.0) gm/dL Hct (34.0-46.0) % MCV (80.0-100.0) fL MCH (25.0-35.0) pg MCHC (31.0-37.0) g/dL RDW (11.5-15.5) % Plt Count (150-450) k/uL MPV Neutrophils % % Lymphocytes % % Monocytes % % Eosinophils % % Basophils % % Neutrophils # (1.3-7.7) k/uL Lymphocytes # (1.0-4.8) k/uL Monocytes # (0-1.0) k/uL Eosinophils # (0-0.7) k/uL Basophils # (0-0.2) k/uL PT (9.0-12.0) sec INR (<1.2) APTT (22.0-30.0) sec Sodium (137-145) mmol/L Potassium (3.5-5.1) mmol/L Chloride (98-107) mmol/L Carbon Dioxide (22-30) mmol/L Anion Gap mmol/L BUN (7-17) mg/dL Creatinine (0.52-1.04) mg/dL Est GFR (CKD-EPI)AfAm (>60 ml/min/1.73 sqM) Est GFR (CKD-EPI)NonAf (>60 ml/min/1.73 sqM) Glucose (74-99) mg/dL Calcium (8.4-10.2) mg/dL Magnesium (1.6-2.3) mg/dL Total Bilirubin (0.2-1.3) mg/dL AST (14-36) U/L ALT (4-34) U/L Alkaline Phosphatase (38-126) U/L Troponin I <0.012 (0.000-0.034) ng/mL Total Protein (6.3-8.2) g/dL Albumin (3.5-5.0) g/dL TSH (0.465-4.680) mIU/L Coronavirus (PCR) (Not Detectd) Disposition Clinical Impression: Atrial fibrillation with RVR Disposition: ADMITTED IP TO THIS HOSP Condition: Fair Is patient prescribed a controlled substance at d/c from ED?: No
== END 2021-05-24 16:17 | disposition home or self-care (01) | DRG 308 ==
LOC: EC 20:25 → 3SCARD 05-22 00:56 → OBSVTOIN 05-22 07:31
PROVIDERS: ADMIT Hospitalist; ATTEND Hospitalist
DX: I48.0 Paroxysmal atrial fibrillation (principal); J96.21 Acute and chronic respiratory failure with hypoxia; J44.1 Chronic obstructive pulmonary disease with (acute) exacerbation; E78.5 Hyperlipidemia, unspecified; Z20.822 Contact with and (suspected) exposure to COVID-19; G25.0 Essential tremor; G25.81 Restless legs syndrome; F32.A Depression, unspecified; F41.9 Anxiety disorder, unspecified; K21.9 Gastro-esophageal reflux disease without esophagitis; G89.29 Other chronic pain; M54.50 Low back pain, unspecified; I83.93 Asymptomatic varicose veins of bilateral lower extremities; R13.10 Dysphagia, unspecified; M54.2 Cervicalgia; K44.9 Diaphragmatic hernia without obstruction or gangrene; R29.6 Repeated falls; F17.210 Nicotine dependence, cigarettes, uncomplicated; Z71.6 Tobacco abuse counseling; Z99.81 Dependence on supplemental oxygen; Z79.82 Long term (current) use of aspirin; Z79.51 Long term (current) use of inhaled steroids; Z79.899 Other long term (current) drug therapy; Z86.73 Personal history of transient ischemic attack (TIA), and cerebral infarction without residual deficits; Z90.710 Acquired absence of both cervix and uterus; Z87.42 Personal history of other diseases of the female genital tract; Z98.42 Cataract extraction status, left eye; Z98.41 Cataract extraction status, right eye; Z96.1 Presence of intraocular lens; Z86.010 Personal history of colon polyps; Z91.81 History of falling; Z87.01 Personal history of pneumonia (recurrent); Z98.890 Other specified postprocedural states; Z88.2 Allergy status to sulfonamides; Z88.8 Allergy status to other drugs, medicaments and biological substances; Z88.6 Allergy status to analgesic agent; Z91.041 Radiographic dye allergy status; Z80.0 Family history of malignant neoplasm of digestive organs; Z80.8 Family history of malignant neoplasm of other organs or systems; Z82.0 Family history of epilepsy and other diseases of the nervous system; Z83.79 Family history of other diseases of the digestive system; Z83.49 Family history of other endocrine, nutritional and metabolic diseases
CPT/HCPCS: 36415; 71045; 80053; 80061; 83735; 84443; 84484; 85025; 85027; 85610; 85730; 86140; 87635; 93005; 93306; 94640; 96365; 96366; 96372; 99285

== ENCOUNTER 2021-10-18 02:41 | Emergency (ER) | payer MEDICARE ==
[2021-10-18 02:46] VITALS: TEMP 97.6
--- NOTE | 2021-10-18 04:44 | XR ---
EXAM: XR Right Shoulder Complete, 2 or More Views CLINICAL HISTORY: ITS.REASON XR Reason: fall TECHNIQUE: Two or more views of the right shoulder. COMPARISON: No relevant prior studies available. FINDINGS: Bones/joints: Osteopenia. No acute fracture. No dislocation. Soft tissues: Unremarkable. IMPRESSION: No acute findings in the right shoulder.
--- NOTE | 2021-10-18 04:51 | XR ---
EXAM: XR Right Humerus, 2 or More Views CLINICAL HISTORY: ITS.REASON XR Reason: fall TECHNIQUE: Frontal and lateral views of the right humerus. COMPARISON: No relevant prior studies available. FINDINGS: Bones/joints: Osteopenia. No acute fracture. No dislocation. Soft tissues: Unremarkable. IMPRESSION: No acute fracture or dislocation
--- NOTE | 2021-10-18 05:08 | ED ---
Fall HPI - General Chief Complaint: Fall Stated Complaint: Fall, R shoulder Pain Time Seen by Provider: 10/18/21 02:59 Source: EMS Mode of arrival: EMS - History of Present Illness Initial Comments: This patient is an 81-year-old woman here to have evaluation of right shoulder injury. Patient states she had been walking in her home, then tripped and fell striking her right shoulder against a wall. No loss of consciousness. No head or neck injury. Patient denies other injuries. She did appear to be having some dyspnea but states that her breathing seems at baseline. She does have history of COPD and is on home oxygen. No change in cough or fever. 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: yes, by family Place Fall Occurred: home Loss of Consciousness: none Prolonged Down Time?: no Symptoms Prior to Fall: none Location - Extremities: Right: Shoulder Severity: moderate Context: history of frequent falls - Related Data Home Medications Medication Instructions Recorded Confirmed Omeprazole 40 mg PO DAILY 08/24/17 05/21/21 Albuterol Sulfate [Proair Hfa] 2 puff INHALATION RT-Q6H PRN 03/06/18 05/21/21 Aspirin 81 mg PO DAILY 10/24/18 05/21/21 Ipratropium Nebulized [Atrovent 0.5 mg INHALATION RT-Q6H PRN 10/24/18 05/21/21 Nebulized 0.2 MG/ML] Propranolol [Inderal] 10 mg PO TID 10/24/18 05/21/21 ALPRAZolam [Xanax] 0.5 mg PO BID PRN 05/21/21 05/21/21 Albuterol Nebulized [Ventolin 2.5 mg INHALATION RT-Q6H PRN 05/21/21 05/21/21 Nebulized] Budesonide [Pulmicort] 0.5 mg INHALATION RT-BID 05/21/21 05/21/21 FLUoxetine HCL [PROzac] 40 mg PO DAILY 05/21/21 05/21/21 Allergies Allergy/AdvReac Type Severity Reaction Status Date / Time ibuprofen Allergy Unknown Verified 05/21/21 20:37 Iodinated Contrast Media Allergy Unknown Verified 05/21/21 20:37 [Iodinated Contrast- Oral and IV Dye] iodine Allergy Rash/Hives Verified 05/21/21 20:37 lorazepam [From Ativan] Allergy Hallucinati Verified 05/21/21 20:37 ons Sulfa (Sulfonamide Allergy Rash/Hives Verified 05/21/21 20:37 Antibiotics) topiramate [From Topamax] Allergy Unknown Verified 05/21/21 20:37 prednisone AdvReac DIZINESS Verified 05/21/21 20:37 zolpidem tartrate AdvReac Hallucinati Verified 05/21/21 20:37 [From Ambien] ons Review of Systems ROS Statement: Those systems with pertinent positive or pertinent negative responses have been documented in the HPI. ROS Other: All systems not noted in ROS Statement are negative. Constitutional: Denies: fever, weakness Respiratory: Reports: as per HPI, cough, dyspnea, wheezes. Denies: hemoptysis, stridor Cardiovascular: Denies: chest pain, edema, syncope Gastrointestinal: Denies: abdominal pain, vomiting, diarrhea Genitourinary: Denies: frequency Musculoskeletal: Reports: as per HPI, arthralgia. Denies: back pain Skin: Denies: rash Neurological: Denies: headache, weakness Past Medical History Past Medical History: Atrial Fibrillation, COPD, CVA/TIA, Eye Disorder, GERD/Reflux, Hyperlipidemia, Pneumonia Additional Past Medical History / Comment(s): Chronic atrial fibrillation per PMH but pt has no recollection of this, bronchiectasis, essential tremors, previous TIA, chronic lumbar back pain, past 6 months R shoulder/cervical pain, balance difficulty with falls, occasional low urinary output and uses lasix prn for this, bilateral varicose veins, dysphagia-able to take pills one at a time with water, small hiatal hernia, restless leg syndrome, seasonal ALLERGIES, History of Any Multi-Drug Resistant Organisms: None Reported Past Surgical History: Hysterectomy Additional Past Surgical History / Comment(s): 11/27/15 EGD with bx, bilateral cataracts removed with lens implants, colonoscopy with 1 benign polypectomy. Past Anesthesia/Blood Transfusion Reactions: No Reported Reaction Past Psychological History: Anxiety, Depression Smoking Status: Current some day smoker Past Alcohol Use History: None Reported Past Drug Use History: None Reported - Past Family History Father Family Medical History: Cancer Additional Family Medical History / Comment(s): Pt thinks father might have from stomach cancer. She was 2 yrs old when he . Sister(s) Family Medical History: Cancer Additional Family Medical History / Comment(s): Half sister with brain cancer. Mother Family Medical History: Dementia Additional Family Medical History / Comment(s): Mother had gallstones and a partial thyroidectomy for noncancerous reasons. General Exam Limitations: no limitations General appearance: alert Head exam: Present: atraumatic, normocephalic Eye exam: Present: normal appearance. Absent: scleral icterus, conjunctival injection Neck exam: Present: normal inspection, full ROM. Absent: tenderness Respiratory exam: Present: respiratory distress (Mild tachypnea), wheezes. Absent: rales, rhonchi, stridor Cardiovascular Exam: Present: regular rate, normal rhythm, normal heart sounds. Absent: systolic murmur, diastolic murmur, rubs, gallop GI/Abdominal exam: Present: soft. Absent: distended, tenderness, guarding, rebound, rigid, mass Extremities exam: Present: normal inspection, normal capillary refill. Absent: pedal edema, calf tenderness Right General: Present: normal inspection Shoulder Exam: Present: normal inspection, tenderness. Absent: full ROM, abrasion, laceration, ecchymosis, deformity, crepitus, dislocation, tenderness over AC joint Upper Arm exam: Present: normal inspection, tenderness. Absent: swelling, abrasion, laceration, ecchymosis, deformity, crepidus, dislocation, erythema Elbow exam: Present: normal inspection, full ROM. Absent: tenderness, swelling Forearm Wrist exam: Present: normal inspection, full ROM. Absent: tenderness, swelling Hand Wrist exam: Present: normal inspection, full ROM. Absent: tenderness, swelling Neurosensory exam: Present: radial nerve intact, ulnar nerve intact, median nerve intact Vascular: Present: normal capillary refill. Absent: vascular compromise, Pallo, pulse deficit radial art, pulse deficit ulnar art, pulse deficit brachial art Back exam: Present: normal inspection. Absent: CVA tenderness (R), CVA tenderness (L) Course Vital Signs 10/18/21 10/18/21 02:42 05:58 Temperature 97.6 F Pulse Rate 69 76 Respiratory 24 20 Rate Blood Pressure 119/69 115/65 O2 Sat by Pulse 96 97 Oximetry Medical Decision Making - Medical Decision Making Patient is an 81-year-old woman here to have evaluation of right shoulder injury after falling against a wall. During history and physical she does appear to have some dyspnea but maintains that this is her baseline and her son agrees. Physical exam does not reveal any obvious bony injury. The x-ray does not show injury. Discussed appropriate further care and follow-up for shoulder injury Disposition Clinical Impression: Fall, Shoulder injury Disposition: HOME SELF-CARE Condition: Good Instructions (If sedation given, give patient instructions): Shoulder Sprain (ED) Is patient prescribed a controlled substance at d/c from ED?: No Referrals: Pablo De La Garza DO [Primary Care Provider] - 1-2 days
[2021-10-18 05:59] VITALS: BP 115/65; PULSE 76; RESP 20
== END 2021-10-18 05:59 | disposition home or self-care (01) ==
LOC: EC 02:41
DX: S49.91XA Unspecified injury of right shoulder and upper arm, initial encounter (principal); J44.9 Chronic obstructive pulmonary disease, unspecified; K21.9 Gastro-esophageal reflux disease without esophagitis; F32.A Depression, unspecified; F41.9 Anxiety disorder, unspecified; Z86.73 Personal history of transient ischemic attack (TIA), and cerebral infarction without residual deficits; Z99.81 Dependence on supplemental oxygen; F17.200 Nicotine dependence, unspecified, uncomplicated; Z88.2 Allergy status to sulfonamides; Z91.041 Radiographic dye allergy status; Z88.6 Allergy status to analgesic agent; Z88.8 Allergy status to other drugs, medicaments and biological substances; W01.198A Fall on same level from slipping, tripping and stumbling with subsequent striking against other object, initial encounter; Y93.01 Activity, walking, marching and hiking; Y92.009 Unspecified place in unspecified non-institutional (private) residence as the place of occurrence of the external cause
CPT/HCPCS: 99283

== ENCOUNTER 2021-10-30 17:59 | Emergency (ER) | payer MEDICARE ==
[2021-10-30 18:07] VITALS: TEMP 97.9
[2021-10-30] MEDS ORDERED: MAGNESIUM SULFATE-D5W PMX 1 GM in DEXTROSE/WATER 1 100ML.BAG IVPB STA (18:40)
[2021-10-30] MEDS ORDERED: SODIUM CHLORIDE 0.9% 500 ML 500 ML IV STA (18:40)
[2021-10-30] MEDS ORDERED: IPRATROPIUM-ALBUTEROL 3 ML NEB INHALATION STA ×2 (18:40→20:10)
[2021-10-30] MEDS ORDERED: methylPREDNISolone SOD SUCCI 40 MG/ML 1 ML VIAL IV STA (18:41)
--- NOTE | 2021-10-30 19:09 | XR ---
EXAMINATION TYPE: XR shoulder complete RT DATE OF EXAM: 10/30/2021 COMPARISON: 10/18/2021 HISTORY: Shoulder pain TECHNIQUE: 3 views FINDINGS: There is fracture of the lateral end of the clavicle. There is 3 mm displacement. The gleno humeral joint appears anatomic. Proximal humerus is intact. Scapula is intact. IMPRESSION: fracture lateral end of the clavicle without significant displacement. No adverse change compared to old exam. No significant change in fragment position.
--- NOTE | 2021-10-30 19:11 | XR ---
EXAMINATION TYPE: XR chest 2V DATE OF EXAM: 10/30/2021 COMPARISON: 05/21/2021 HISTORY: Short of breath TECHNIQUE: 2 views FINDINGS: Heart and mediastinum are normal. Lungs are clear. Diaphragm is normal. The bones are osteo penic. There is 30% wedging of T11 vertebra. There are chest leads. IMPRESSION: No active cardiopulmonary disease. No change.
[2021-10-30 19:15] LABS: Basophils # (A) 0.1 k/uL (0-0.2); Basophils % (A) 2 %; Eosinophils # (A) 0.3 k/uL (0-0.7); Eosinophils % (A) 4 %; HCT 40.5 % (34.0-46.0); HGB 13.3 gm/dL (11.4-16.0); Lymphocytes # (A) 1.7 k/uL (1.0-4.8); Lymphocytes % (A) 23 %; MCH 30.1 pg (25.0-35.0); MCHC 32.9 g/dL (31.0-37.0); MCV 91.7 fL (80.0-100.0); Monocytes # (A) 0.5 k/uL (0-1.0); Monocytes % (A) 6 %; Neutrophils # (A) 4.5 k/uL (1.3-7.7); Neutrophils % (A) 62 %; Platelet Count 305 k/uL (150-450); RBC 4.41 m/uL (3.80-5.40); RDW 13.3 % (11.5-15.5); WBC 7.3 k/uL (3.8-10.6)
[2021-10-30 19:28] VITALS: RESP 18
[2021-10-30 19:29] LABS: Partial Thromboplastin Time 24.4 sec (22.0-30.0); Prothrombin Time 10.7 sec (9.0-12.0)
[2021-10-30 19:30] LABS: ALT 9 U/L (4-34); AST 27 U/L (14-36); African American GFR (CKD) >90 (>60 ml/min/1.73 sqM); Albumin 4.1 g/dL (3.5-5.0); Alkaline Phosphatase 62 U/L (38-126); Anion Gap 6 mmol/L; Blood Urea Nitrogen 17 mg/dL (7-17); Calcium 8.8 mg/dL (8.4-10.2); Carbon Dioxide 27 mmol/L (22-30); Chloride 102 mmol/L (98-107); Glucose 83 mg/dL (74-99); Non-African American GFR(CKD) 82 (>60 ml/min/1.73 sqM); Sodium 135 mmol/L (137-145); Total Bilirubin 0.8 mg/dL (0.2-1.3); Total Protein 6.6 g/dL (6.3-8.2)
[2021-10-30 19:35] LABS: Potassium 4.6 mmol/L (3.5-5.1)
--- NOTE | 2021-10-30 19:35 | ED ---
General Adult HPI - General Chief complaint: Shortness of Breath Stated complaint: Side and shoulder pain, weakness Time Seen by Provider: 10/30/21 18:01 Source: patient, EMS, RN notes reviewed, old records reviewed Mode of arrival: EMS Limitations: no limitations - History of Present Illness Initial comments: Patient is an 81-year-old female with past medical history remarkable for atrial fibrillation not on anticoagulation, COPD on 2 L nasal cannula at home, GERD, hyperlipidemia presents from his apartment when he of mucus in her throat for the last 2 days and worsening congestion in her chest. Also endorses some mild increased work of breathing. States she has been attempting to use home breathing treatments with minimal success. Presents today for further evaluation. States she occasionally feels weak as well. Denies any other acute complaints. Does state she has some anterior chest wall pain on the right side where she fell and his bruising for multiple weeks ago. States she does have a somewhat productive cough of clearish white mucus which is atypical for her. Denies fevers, chills, sick contacts. Denies nausea, vomiting, abdominal pain. His no other acute point at this time. Presents for further evaluation at this time. States she does get "shaky" and it seems related to anxiety. - Related Data Home Medications Medication Instructions Recorded Confirmed Omeprazole 40 mg PO DAILY 08/24/17 10/30/21 Albuterol Sulfate [Proair Hfa] 2 puff INHALATION RT-Q4H PRN 03/06/18 10/30/21 Aspirin 81 mg PO DAILY 10/24/18 10/30/21 Ipratropium Nebulized [Atrovent 0.5 mg INHALATION RT-Q6H PRN 10/24/18 10/30/21 Nebulized 0.2 MG/ML] Propranolol [Inderal] 10 mg PO TID 10/24/18 10/30/21 ALPRAZolam [Xanax] 0.5 mg PO BID PRN 05/21/21 10/30/21 Albuterol Nebulized [Ventolin 2.5 mg INHALATION RT-Q6H PRN 05/21/21 10/30/21 Nebulized] Budesonide [Pulmicort] 0.5 mg INHALATION RT-BID 05/21/21 10/30/21 FLUoxetine HCL [PROzac] 40 mg PO DAILY 05/21/21 10/30/21 Acetaminophen Tab [Tylenol Tab] 500 - 1,000 mg PO Q6HR PRN 10/30/21 10/30/21 Cholecalciferol [Vitamin D3 (125 125 mcg PO DAILY 10/30/21 10/30/21 Mcg = 5000 Iu)] Cyanocobalamin (Vitamin B-12) 1,000 mcg PO DAILY 10/30/21 10/30/21 [Vitamin B-12] busPIRone HCl [Buspar] 5 mg PO BID 10/30/21 10/30/21 Previous Rx's Medication Instructions Recorded Doxycycline Hyclate 100 mg PO BID 7 Days #14 capsule 10/30/21 dexAMETHasone [Decadron] 6 mg PO DAILY 4 Days #4 tablet 10/30/21 Allergies Allergy/AdvReac Type Severity Reaction Status Date / Time ibuprofen Allergy Unknown Verified 10/30/21 20:36 Iodinated Contrast Media Allergy Unknown Verified 10/30/21 20:36 [Iodinated Contrast- Oral and IV Dye] iodine Allergy Rash/Hives Verified 10/30/21 20:36 lorazepam [From Ativan] Allergy Hallucinati Verified 10/30/21 20:36 ons Sulfa (Sulfonamide Allergy Rash/Hives Verified 10/30/21 20:36 Antibiotics) topiramate [From Topamax] Allergy Unknown Verified 10/30/21 20:36 prednisone AdvReac DIZINESS Verified 10/30/21 20:36 zolpidem tartrate AdvReac Hallucinati Verified 10/30/21 20:36 [From Ambien] ons Review of Systems ROS Statement: Those systems with pertinent positive or pertinent negative responses have been documented in the HPI. Review of Systems: CONST: Denies fever EYES: Denies blurry vision ENT: Endorses nasal congestion C/V: Denies Chest pain RESP: Denies shortness of breath GI: Denies abdominal pain : Denies dysuria SKIN: Denies rash. MSK: Denies joint pain. NEURO: Denies headache ROS Other: All systems not noted in ROS Statement are negative. Past Medical History Past Medical History: Atrial Fibrillation, COPD, CVA/TIA, Eye Disorder, GERD/R eflux, Hyperlipidemia, Pneumonia Additional Past Medical History / Comment(s): Chronic atrial fibrillation per PMH but pt has no recollection of this, bronchiectasis, essential tremors, previous TIA, chronic lumbar back pain, past 6 months R shoulder/cervical pain, balance difficulty with falls, occasional low urinary output and uses lasix prn for this, bilateral varicose veins, dysphagia-able to take pills one at a time with water, small hiatal hernia, restless leg syndrome, seasonal ALLERGIES, History of Any Multi-Drug Resistant Organisms: None Reported Past Surgical History: Hysterectomy Additional Past Surgical History / Comment(s): 11/27/15 EGD with bx, bilateral cataracts removed with lens implants, colonoscopy with 1 benign polypectomy. Past Anesthesia/Blood Transfusion Reactions: No Reported Reaction Past Psychological History: Anxiety, Depression Smoking Status: Current some day smoker Past Alcohol Use History: None Reported Past Drug Use History: None Reported - Past Family History Father Family Medical History: Cancer Additional Family Medical History / Comment(s): Pt thinks father might have from stomach cancer. She was 2 yrs old when he . Sister(s) Family Medical History: Cancer Additional Family Medical History / Comment(s): Half sister with brain cancer. Mother Family Medical History: Dementia Additional Family Medical History / Comment(s): Mother had gallstones and a partial thyroidectomy for noncancerous reasons. General Exam - General Exam Comments Initial Comments: General: Appears in no acute distress. HEAD: Normal with no signs of head trauma. EYES: PERRLA, EOMI, conjunctiva normal, no discharge. ENT: Hearing grossly intact, normal oropharynx. RESPIRATORY: Bilateral end expiratory wheezing. No increased work of breathing. Pulse oximetry range is from 90-96% on room air are 2 L nasal cannula. Baseline is on 2 L at home when necessary. C/V: Irregular rate and rhythm. History of atrial fibrillation. Peripheral pulses 2+ and intact throughout. ABD: Abd is soft, nontender, nondistended EXT: Normal range of motion, no obvious deformity SKIN: No rashes or lesions observed on exposed skin. NEURO: Alert and oriented 4. Limitations: no limitations Course Vital Signs 10/30/21 10/30/21 10/30/21 18:03 19:27 19:34 Temperature 97.9 F Pulse Rate 53 L 72 74 Respiratory 22 18 18 Rate Blood Pressure 114/69 O2 Sat by Pulse 96 Oximetry 10/30/21 10/30/21 10/30/21 19:50 20:51 21:00 Temperature Pulse Rate 81 73 74 Respiratory 18 18 18 Rate Blood Pressure 105/61 O2 Sat by Pulse 93 L Oximetry Medical Decision Making - Medical Decision Making Based on the patient's presentation and physical exam, does appear she is having an active COPD exacerbation. Cannot rule out bronchitis or upper respiratory infection otherwise. Patient will be symptomatic pretreated with Solu-Medrol, magnesium, breathing treatments. EKG as well as basic labs and chest x-ray will be obtained. She was in agreement this plan. EKG showed atrial fibrillation that is rate controlled and otherwise unremarkable. No signs of acute ischemia. Chest x-ray shows no signs of acute cardio pulmonary process. Shoulder x-ray shows no acute injury, but redemonstrated clavicular fracture, that seemed to be missed on prior xray read. I updated the patient regarding small discharge home with a sling and follow-up with orthopedics. Fall was multiple weeks ago. Laboratory studies were within normal limits. Patient is negative for Covid and flu. On reevaluation, patient's wheezing is improved. She is feeling better. I updated her on the results of x-rays and workup. We'll discharge home with a diagnosis of COPD exacerbation and bronchitis. We'll provide her with Decadron for home in addition to antibiotics. Has plenty of updrafts and inhalers at home. His following up with doctors this week, under her progress. Strict return precautions were discussed. I will provide the patient with a prescription for doxycycline, Decadron. I instructed the patient to follow up with their PCP in the next 1-3 days. I explained that the patient should return to the emergency department if they experience any worsening symptoms. Strict return precautions were discussed with the patient. The patient expressed understanding of these instructions. I answered all questions that the patient had. The patient was discharged home in good condition with their prescriptions and follow up information. - Lab Data Result diagrams: 10/30/21 18:47 10/30/21 18:47 Lab Results 10/30/21 10/30/21 10/30/21 Range/Units 18:47 18:47 18:47 WBC 7.3 (3.8-10.6) k/uL RBC 4.41 (3.80-5.40) m/uL Hgb 13.3 (11.4-16.0) gm/dL Hct 40.5 (34.0-46.0) % MCV 91.7 (80.0-100.0) fL MCH 30.1 (25.0-35.0) pg MCHC 32.9 (31.0-37.0) g/dL RDW 13.3 (11.5-15.5) % Plt Count 305 (150-450) k/uL MPV 8.0 Neutrophils % 62 % Lymphocytes % 23 % Monocytes % 6 % Eosinophils % 4 % Basophils % 2 % Neutrophils # 4.5 (1.3-7.7) k/uL Lymphocytes # 1.7 (1.0-4.8) k/uL Monocytes # 0.5 (0-1.0) k/uL Eosinophils # 0.3 (0-0.7) k/uL Basophils # 0.1 (0-0.2) k/uL PT 10.7 (9.0-12.0) sec INR 1.0 (<1.2) APTT 24.4 (22.0-30.0) sec Sodium 135 L (137-145) mmol/L Potassium 4.6 (3.5-5.1) mmol/L Chloride 102 (98-107) mmol/L Carbon Dioxide 27 (22-30) mmol/L Anion Gap 6 mmol/L BUN 17 (7-17) mg/dL Creatinine 0.69 (0.52-1.04) mg/dL Est GFR (CKD-EPI)AfAm >90 (>60 ml/min/1.73 sqM) Est GFR (CKD-EPI)NonAf 82 (>60 ml/min/1.73 sqM) Glucose 83 (74-99) mg/dL Calcium 8.8 (8.4-10.2) mg/dL Magnesium 2.0 (1.6-2.3) mg/dL Total Bilirubin 0.8 (0.2-1.3) mg/dL AST 27 (14-36) U/L ALT 9 (4-34) U/L Alkaline Phosphatase 62 (38-126) U/L Total Protein 6.6 (6.3-8.2) g/dL Albumin 4.1 (3.5-5.0) g/dL Urine Color Urine Appearance (Clear) Urine pH (5.0-8.0) Ur Specific [place] (1.001-1.035) Urine Protein (Negative) Urine Glucose (UA) (Negative) Urine Ketones (Negative) Urine Blood (Negative) Urine Nitrite (Negative) Urine Bilirubin (Negative) Urine Urobilinogen (<2.0) mg/dL Ur Leukocyte Esterase (Negative) Urine RBC (0-5) /hpf Urine WBC (0-5) /hpf Ur Squamous Epith Cells (0-4) /hpf Urine Bacteria (None) /hpf Hyaline Casts (0-2) /lpf Urine Mucus (None) /hpf Coronavirus (PCR) (Not Detectd) Influenza Type A RNA (Not Detectd) Influenza Type B (PCR) (Not Detectd) 10/30/21 10/30/21 10/30/21 Range/Units 18:52 18:52 19:41 WBC (3.8-10.6) k/uL RBC (3.80-5.40) m/uL Hgb (11.4-16.0) gm/dL Hct (34.0-46.0) % MCV (80.0-100.0) fL MCH (25.0-35.0) pg MCHC (31.0-37.0) g/dL RDW (11.5-15.5) % Plt Count (150-450) k/uL MPV Neutrophils % % Lymphocytes % % Monocytes % % Eosinophils % % Basophils % % Neutrophils # (1.3-7.7) k/uL Lymphocytes # (1.0-4.8) k/uL Monocytes # (0-1.0) k/uL Eosinophils # (0-0.7) k/uL Basophils # (0-0.2) k/uL PT (9.0-12.0) sec INR (<1.2) APTT (22.0-30.0) sec Sodium (137-145) mmol/L Potassium (3.5-5.1) mmol/L Chloride (98-107) mmol/L Carbon Dioxide (22-30) mmol/L Anion Gap mmol/L BUN (7-17) mg/dL Creatinine (0.52-1.04) mg/dL Est GFR (CKD-EPI)AfAm (>60 ml/min/1.73 sqM) Est GFR (CKD-EPI)NonAf (>60 ml/min/1.73 sqM) Glucose (74-99) mg/dL Calcium (8.4-10.2) mg/dL Magnesium (1.6-2.3) mg/dL Total Bilirubin (0.2-1.3) mg/dL AST (14-36) U/L ALT (4-34) U/L Alkaline Phosphatase (38-126) U/L Total Protein (6.3-8.2) g/dL Albumin (3.5-5.0) g/dL Urine Color Yellow Urine Appearance Cloudy H (Clear) Urine pH 5.5 (5.0-8.0) Ur Specific Morgan 1.019 (1.001-1.035) Urine Protein Negative (Negative) Urine Glucose (UA) Negative (Negative) Urine Ketones Negative (Negative) Urine Blood Moderate H (Negative) Urine Nitrite Negative (Negative) Urine Bilirubin Negative (Negative) Urine Urobilinogen <2.0 (<2.0) mg/dL Ur Leukocyte Esterase Negative (Negative) Urine RBC 4 (0-5) /hpf Urine WBC 1 (0-5) /hpf Ur Squamous Epith Cells 4 (0-4) /hpf Urine Bacteria Rare H (None) /hpf Hyaline Casts 1 (0-2) /lpf Urine Mucus Rare H (None) /hpf Coronavirus (PCR) Not Detected (Not Detectd) Influenza Type A RNA Not Detected (Not Detectd) Influenza Type B (PCR) Not Detected (Not Detectd) - EKG Data -: EKG Interpreted by Me EKG Comments: 12-lead Electrocardiogram Interpretation Note EKG was reviewed and interpreted by myself. 12-lead ECG performed at 1811 is interpreted by me as revealing atrial flutter ablation at a rate of 78 beats per minute. [place] is normal. HI interval is unobtainable, QRS duration is 84 ms, QTc is 420 ms.. There were no ST or T wave abnormalities to suggest myocardial ischemia or injury. R wave progression across the precordium was satisfactory. By my interpretation this EKG is non-diagnostic for acute ischemia. Disposition Clinical Impression: COPD exacerbation, Bronchitis, Right clavicle fracture Disposition: HOME SELF-CARE Condition: Good Instructions (If sedation given, give patient instructions): Clavicle Fracture (ED), Acute Bronchitis (ED), COPD (Chronic Obstructive Pulmonary Disease) (ED) Prescriptions: dexAMETHasone [Decadron] 6 mg PO DAILY 4 Days #4 tablet Doxycycline Hyclate 100 mg PO BID 7 Days #14 capsule Is patient prescribed a controlled substance at d/c from ED?: No Referrals: Pablo De La Garza DO [Primary Care Provider] - 1-2 days Yovani Prabhakar PAC [PHYSICIAN FILING CLERK] - 1-2 days Time of Disposition: 21:00
[2021-10-30 20:46] LABS: Appearance,Urine Cloudy (Clear); Bacteria,Urine Rare /hpf; Bilirubin,Urine Negative (Negative); Blood,Urine Moderate (Negative); Color,Urine Yellow; Glucose,Urine (UA) Negative (Negative); Hyaline Casts,Urine 1 /lpf (0-2); Ketones,Urine Negative (Negative); Leukocyte Esterase,Urine Negative (Negative); Mucus,Urine Rare /hpf; Nitrite,Urine Negative (Negative); PH, Urine 5.5 (5.0-8.0); Protein,Urine Negative (Negative); RBC,Urine 4 /hpf (0-5); Specific Gravity,Urine 1.019 (1.001-1.035); Squamous Epithelial Cell,Urine 4 /hpf (0-4); Urobilinogen,Urine <2.0 mg/dL (<2.0); WBC,Urine 1 /hpf (0-5)
[2021-10-30 21:00] VITALS: PULSE 74
[2021-10-30] MEDS ORDERED: DOXYCYCLINE 100 MG CAP PO STA (21:01)
[2021-10-30 22:00] VITALS: BP 137/81
== END 2021-10-30 22:00 | disposition home or self-care (01) ==
LOC: EC 17:59
DX: S42.001A Fracture of unspecified part of right clavicle, initial encounter for closed fracture (principal); J44.1 Chronic obstructive pulmonary disease with (acute) exacerbation; E78.5 Hyperlipidemia, unspecified; K21.9 Gastro-esophageal reflux disease without esophagitis; F17.209 Nicotine dependence, unspecified, with unspecified nicotine-induced disorders; Z79.83 Long term (current) use of bisphosphonates; Z20.822 Contact with and (suspected) exposure to COVID-19; F17.200 Nicotine dependence, unspecified, uncomplicated; Z88.2 Allergy status to sulfonamides; Z88.6 Allergy status to analgesic agent; Z88.8 Allergy status to other drugs, medicaments and biological substances; Z86.73 Personal history of transient ischemic attack (TIA), and cerebral infarction without residual deficits; X58.XXXA Exposure to other specified factors, initial encounter
CPT/HCPCS: 36415; 94640 ×2; 93005; 80053; 83735; 85025; 85610; 85730; 81001; 87502; 87635; 73030; 71046; 96365; 96375; 99285; J2920; J3475

== ENCOUNTER → 2021-11-29 | Outpatient (CLI) | payer MEDICARE ==
--- NOTE | 2021-11-30 08:25 | XR ---
EXAMINATION TYPE: XR chest 2V DATE OF EXAM: 11/29/2021 COMPARISON: 10/30/2021 TECHNIQUE: PA and lateral views submitted. HISTORY: Pain FINDINGS: The lungs are clear and there is no pneumothorax, pleural effusion, or focal pneumonia. Diffuse hyp erinflation. Heart size. No overt failure. Chronic appearing deformity left humeral neck stable. Ritesh elate for prior trauma. Degenerative change of the spine. IMPRESSION: 1. No acute process. Correlate for COPD. 2. There is a mild to moderate superior endplate deformity of a lower thoracic segment which is stabl e from prior exam.
--- NOTE | 2021-11-30 08:32 | XR ---
EXAMINATION TYPE: XR thoracic spine 2V DATE OF EXAM: 11/29/2021 COMPARISON: NONE HISTORY: Pain TECHNIQUE: 3 views submitted FINDINGS: Alignment is anatomic. There is there is a endplate mild to moderate compression deformity lower tho racic spine and additional superior endplate compression deformity or fracture near the thoracolumbar junction or L1. Multilevel mild to moderate degenerative disc disease. IMPRESSION: 1. There are a couple superior endplate compression fractures as discussed above. Recommend follow-up MRI.
== END | disposition home or self-care (01) ==
LOC: RADXRYALE 16:08
PROVIDERS: ATTEND Physician Assistant Medical
DX: M54.6 Pain in thoracic spine (principal); R06.02 Shortness of breath
CPT/HCPCS: 71046; 72070

== ENCOUNTER 2022-03-15 14:22 | Inpatient (IN) | payer MEDICARE ==
[2022-03-15] MEDS ORDERED: methylPREDNISolone SOD SUCCI 125 MG/2 ML VIAL IV STA (14:43)
[2022-03-15] MEDS ORDERED: ALBUTEROL NEBULIZED 2.5 MG/3 ML INHALATION STA (14:43)
[2022-03-15] MEDS ORDERED: IPRATROPIUM 0.5 MG/2.5 ML NEBU INHALATION STA (14:43)
[2022-03-15 15:20] LABS: INR 0.9 (<1.2); Partial Thromboplastin Time 23.5 sec (22.0-30.0); Prothrombin Time 10.4 sec (9.0-12.0)
--- NOTE | 2022-03-15 15:21 | ED ---
General Adult HPI - General Chief complaint: Shortness of Breath Stated complaint: SOB Time Seen by Provider: 03/15/22 14:22 Source: patient, EMS, RN notes reviewed, old records reviewed Mode of arrival: EMS Limitations: no limitations - History of Present Illness Initial comments: This is an 81-year-old female with past mental history significant for COPD per patient states over the last few days she's becoming more more short of breath. Patient states this morning she got up and she was so short of breath she called EMS. Patient states she did not take breathing treatment this morning prior to coming. On the way and to get breathing treatment from EMS and she did feel better. Patient states she still feels short of breath. Patient states she occasionally smokes still. Patient denies any chest pain or palpitations. Patient denies any recent fever chills or cough. Patient states she does feel like there is some phlegm and throat she can't get it up. Patient denies any abdominal pain patient denies nausea vomiting diarrhea. Patient denies any swelling to the legs or calf tenderness. Patient denies headache patient denies numbness weakness. Patient denies any lightheadedness dizziness or near syncopal episode. - Related Data Home Medications Medication Instructions Recorded Confirmed Omeprazole 40 mg PO DAILY 08/24/17 03/15/22 Albuterol Sulfate [Proair Hfa] 2 puff INHALATION RT-Q4H PRN 03/06/18 03/15/22 Aspirin 81 mg PO DAILY 10/24/18 03/15/22 Ipratropium Nebulized [Atrovent 0.5 mg INHALATION RT-Q4H PRN 10/24/18 03/15/22 Nebulized 0.2 MG/ML] ALPRAZolam [Xanax] 0.5 mg PO BID PRN 05/21/21 03/15/22 Albuterol Nebulized [Ventolin 2.5 mg INHALATION RT-Q6H PRN 05/21/21 03/15/22 Nebulized] Budesonide [Pulmicort] 0.5 mg INHALATION RT-BID 05/21/21 03/15/22 FLUoxetine HCL [PROzac] 40 mg PO DAILY 05/21/21 03/15/22 Acetaminophen Tab [Tylenol] 500 - 1,000 mg PO Q6HR PRN 10/30/21 03/15/22 Cholecalciferol [Vitamin D3 (125 125 mcg PO DAILY 10/30/21 03/15/22 Mcg = 5000 Iu)] Cyanocobalamin (Vitamin B-12) 1,000 mcg PO DAILY 10/30/21 03/15/22 [Vitamin B-12] busPIRone HCl [Buspar] 5 mg PO BID PRN 10/30/21 03/15/22 Diclofenac Sodium Gel [Voltaren 2 gm TOPICAL QID PRN 12/05/21 03/15/22 Gel] Propranolol [Inderal] 40 mg PO BID 03/15/22 03/15/22 Allergies Allergy/AdvReac Type Severity Reaction Status Date / Time budesonide [From Symbicort] Allergy Unknown Verified 03/15/22 16:19 formoterol [From Symbicort] Allergy Unknown Verified 03/15/22 16:19 gabapentin Allergy Unknown Verified 03/15/22 16:19 ibuprofen Allergy Unknown Verified 03/15/22 16:19 Iodinated Contrast Media Allergy Unknown Verified 03/15/22 16:19 [Iodinated Contrast- Oral and IV Dye] iodine Allergy Rash/Hives Verified 03/15/22 16:19 lorazepam [From Ativan] Allergy Hallucinati Verified 03/15/22 16:19 ons Sulfa (Sulfonamide Allergy Rash/Hives Verified 03/15/22 16:19 Antibiotics) topiramate [From Topamax] Allergy Unknown Verified 03/15/22 16:19 prednisone AdvReac dizziness Verified 03/15/22 16:19 zolpidem tartrate AdvReac Hallucinati Verified 03/15/22 16:19 [From Ambien] ons Review of Systems ROS Statement: Those systems with pertinent positive or pertinent negative responses have been documented in the HPI. ROS Other: All systems not noted in ROS Statement are negative. Past Medical History Past Medical History: Atrial Fibrillation, COPD, CVA/TIA, Eye Disorder, DEN D/Reflux, Hyperlipidemia, Pneumonia Additional Past Medical History / Comment(s): Chronic atrial fibrillation per PMH but pt has no recollection of this, bronchiectasis, essential tremors, previous TIA, chronic lumbar back pain, past 6 months R shoulder/cervical pain, balance difficulty with falls, occasional low urinary output and uses lasix prn for this, bilateral varicose veins, dysphagia-able to take pills one at a time with water, small hiatal hernia, restless leg syndrome, seasonal ALLERGIES, History of Any Multi-Drug Resistant Organisms: None Reported Past Surgical History: Hysterectomy Additional Past Surgical History / Comment(s): 11/27/15 EGD with bx, bilateral cataracts removed with lens implants, colonoscopy with 1 benign polypectomy. Past Anesthesia/Blood Transfusion Reactions: No Reported Reaction Past Psychological History: Anxiety, Depression Smoking Status: Current some day smoker Past Alcohol Use History: None Reported Past Drug Use History: None Reported - Past Family History Father Family Medical History: Cancer Additional Family Medical History / Comment(s): Pt thinks father might have from stomach cancer. She was 2 yrs old when he . Sister(s) Family Medical History: Cancer Additional Family Medical History / Comment(s): Half sister with brain cancer. Mother Family Medical History: Dementia Additional Family Medical History / Comment(s): Mother had gallstones and a partial thyroidectomy for noncancerous reasons. General Exam - General Exam Comments Initial Comments: GENERAL: Patient is well-developed and well-nourished. Patient is nontoxic and well-hydrated and is in mild distress. ENT: Neck is soft and supple. No significant lymphadenopathy is noted. Oropharynx is clear. Moist mucous membranes. Neck has full range of motion without eliciting any pain. EYES: The sclera were anicteric and conjunctiva were pink and moist. Extraocular movements were intact and pupils were equal round and reactive to light. Eyelids were unremarkable. PULMONARY: Diffuse expiratory wheezing CARDIOVASCULAR: There is a regular rate and rhythm without any murmurs gallops or rubs. ABDOMEN: Soft and nontender with normal bowel sounds. SKIN: Skin is clear with no lesions or rashes and otherwise unremarkable. NEUROLOGIC: Patient is alert and oriented x3. Cranial nerves II through XII are grossly intact. Motor and sensory are also intact. Normal speech, volume and content. Symmetrical smile. MUSCULOSKELETAL: Normal extremities with adequate strength and full range of motion. LYMPHATICS: No significant lymphadenopathy is noted PSYCHIATRIC: Normal psychiatric evaluation. Limitations: no limitations Course Vital Signs 03/15/22 03/15/22 03/15/22 14:24 15:13 15:43 Temperature 97.4 F L Pulse Rate 62 62 66 Respiratory 18 Rate Blood Pressure 101/71 O2 Sat by Pulse 99 Oximetry 03/15/22 16:20 Temperature 97.4 F L Pulse Rate 61 Respiratory 16 Rate Blood Pressure 110/70 O2 Sat by Pulse 98 Oximetry Medical Decision Making - Medical Decision Making EKG is interpreted by me. EKG shows sinus rhythm at 64 bpm [place] interval 219 QRS is 70 QT interval 418 QTC is 427. Patient's EKG shows no ST segment elevation or depression. Chest x-ray is interpreted by me shows no acute abnormality. No infiltrate or pleural effusion. Patient received multiple breathing treatments in the emergency department as well as steroids. She was feeling somewhat better but continued to wheeze. I spoke with sounds physician's agreed to admit the patient admitted the patient wrote admitting orders. I continue breathing treatments and steroids on the floor. - Lab Data Result diagrams: 03/15/22 14:51 03/15/22 14:51 Lab Results 03/15/22 03/15/22 03/15/22 Range/Units 14:51 14:51 14:51 WBC 6.5 (3.8-10.6) k/uL RBC 4.59 (3.80-5.40) m/uL Hgb 13.6 (11.4-16.0) gm/dL Hct 42.1 (34.0-46.0) % MCV 91.8 (80.0-100.0) fL MCH 29.7 (25.0-35.0) pg MCHC 32.3 (31.0-37.0) g/dL RDW 13.0 (11.5-15.5) % Plt Count 290 (150-450) k/uL MPV 7.9 Neutrophils % 66 % Lymphocytes % 21 % Monocytes % 8 % Eosinophils % 3 % Basophils % 1 % Neutrophils # 4.2 (1.3-7.7) k/uL Lymphocytes # 1.4 (1.0-4.8) k/uL Monocytes # 0.5 (0-1.0) k/uL Eosinophils # 0.2 (0-0.7) k/uL Basophils # 0.0 (0-0.2) k/uL PT 10.4 (9.0-12.0) sec INR 0.9 (<1.2) APTT 23.5 (22.0-30.0) sec Sodium 137 (137-145) mmol/L Potassium 4.7 (3.5-5.1) mmol/L Chloride 101 (98-107) mmol/L Carbon Dioxide 32 H (22-30) mmol/L Anion Gap 4 mmol/L BUN 17 (7-17) mg/dL Creatinine 0.77 (0.52-1.04) mg/dL Est GFR (CKD-EPI)AfAm 84 (>60 ml/min/1.73 sqM) Est GFR (CKD-EPI)NonAf 73 (>60 ml/min/1.73 sqM) Glucose 99 (74-99) mg/dL Plasma Lactic Acid Osmel (0.7-2.0) mmol/L Calcium 9.3 (8.4-10.2) mg/dL Magnesium 2.1 (1.6-2.3) mg/dL Total Bilirubin 0.6 (0.2-1.3) mg/dL AST 20 (14-36) U/L ALT 13 (4-34) U/L Alkaline Phosphatase 68 (38-126) U/L Troponin I (0.000-0.034) ng/mL NT-Pro-B Natriuret Pep pg/mL Total Protein 6.4 (6.3-8.2) g/dL Albumin 4.1 (3.5-5.0) g/dL 03/15/22 03/15/22 03/15/22 Range/Units 14:51 14:51 14:51 WBC (3.8-10.6) k/uL RBC (3.80-5.40) m/uL Hgb (11.4-16.0) gm/dL Hct (34.0-46.0) % MCV (80.0-100.0) fL MCH (25.0-35.0) pg MCHC (31.0-37.0) g/dL RDW (11.5-15.5) % Plt Count (150-450) k/uL MPV Neutrophils % % Lymphocytes % % Monocytes % % Eosinophils % % Basophils % % Neutrophils # (1.3-7.7) k/uL Lymphocytes # (1.0-4.8) k/uL Monocytes # (0-1.0) k/uL Eosinophils # (0-0.7) k/uL Basophils # (0-0.2) k/uL PT (9.0-12.0) sec INR (<1.2) APTT (22.0-30.0) sec Sodium (137-145) mmol/L Potassium (3.5-5.1) mmol/L Chloride (98-107) mmol/L Carbon Dioxide (22-30) mmol/L Anion Gap mmol/L BUN (7-17) mg/dL Creatinine (0.52-1.04) mg/dL Est GFR (CKD-EPI)AfAm (>60 ml/min/1.73 sqM) Est GFR (CKD-EPI)NonAf (>60 ml/min/1.73 sqM) Glucose (74-99) mg/dL Plasma Lactic Acid Osmel 0.8 (0.7-2.0) mmol/L Calcium (8.4-10.2) mg/dL Magnesium (1.6-2.3) mg/dL Total Bilirubin (0.2-1.3) mg/dL AST (14-36) U/L ALT (4-34) U/L Alkaline Phosphatase (38-126) U/L Troponin I <0.012 (0.000-0.034) ng/mL NT-Pro-B Natriuret Pep 47 pg/mL Total Protein (6.3-8.2) g/dL Albumin (3.5-5.0) g/dL Disposition Clinical Impression: COPD exacerbation Disposition: ADMITTED IP TO THIS HOSP Referrals: Wen Wu, PAC [REFERRING] - 1-2 days Time of Disposition: 16:45
--- NOTE | 2022-03-15 15:22 | XR ---
EXAMINATION TYPE: XR chest 2V DATE OF EXAM: 03/15/2022 COMPARISON: 12/05/2021 TECHNIQUE: PA and lateral views submitted. HISTORY: Shortness of breath FINDINGS: The lungs are clear and there is no pneumothorax, pleural effusion, or focal pneumonia. Endplate co mpression deformities are seen involving the lower thoracic and upper lumbar spine indeterminate age. Hyperinflation noted. Patient is rotated which likely accounts for the prominence of the right hilum . There is a fracture involving the right clavicle and a remote fracture involving the left humeral n binu. Diffuse osteopenia. IMPRESSION: 1. COPD. 2. Chronic fracture distal right clavicle previously reported.
[2022-03-15 15:25] LABS: Basophils % (A) 1 %; Eosinophils # (A) 0.2 k/uL (0-0.7); Eosinophils % (A) 3 %; HCT 42.1 % (34.0-46.0); HGB 13.6 gm/dL (11.4-16.0); Lymphocytes # (A) 1.4 k/uL (1.0-4.8); Lymphocytes % (A) 21 %; MCH 29.7 pg (25.0-35.0); MCHC 32.3 g/dL (31.0-37.0); MCV 91.8 fL (80.0-100.0); Mean Platelet Volume 7.9; Monocytes # (A) 0.5 k/uL (0-1.0); Monocytes % (A) 8 %; Neutrophils # (A) 4.2 k/uL (1.3-7.7); Neutrophils % (A) 66 %; Platelet Count 290 k/uL (150-450); RBC 4.59 m/uL (3.80-5.40); WBC 6.5 k/uL (3.8-10.6)
[2022-03-15 15:32] LABS: Albumin 4.1 g/dL (3.5-5.0); Calcium 9.3 mg/dL (8.4-10.2); Magnesium 2.1 mg/dL (1.6-2.3); Potassium 4.7 mmol/L (3.5-5.1); Total Bilirubin 0.6 mg/dL (0.2-1.3); Total Protein 6.4 g/dL (6.3-8.2)
[2022-03-15] MEDS ORDERED: NALOXONE 0.4 MG/ML 1 ML VIAL IVP PRN ×2 (16:57→18:18)
[2022-03-15] MEDS ORDERED: AMOXIC-POT CLAV 875-125MG 1 EACH TAB PO STA (17:05)
[2022-03-15 17:14] LABS: VBG PH 7.34 (7.31-7.41)
[2022-03-15] MEDS ORDERED: ALBUTEROL NEBULIZED 2.5 MG/3 ML INHALATION PRN (18:18)
[2022-03-15] MEDS ORDERED: ACETAMINOPHEN TAB 325 MG TAB PO PRN (18:18)
[2022-03-15] MEDS ORDERED: busPIRone HCl 5 MG TAB PO PRN (18:20)
--- NOTE | 2022-03-15 18:22 | P.HPIM ---
History of Present Illness H&P Date: 03/15/22 Chief Complaint: dyspnea, imbalance 81-year-old frail elderly woman with history of COPD on home O2 but noncompliant, active smoker, hypertension, hyperlipidemia, history of CVA presented for evaluation of dyspnea, as well as increasing amounts. Patient says that she lives at home and does not have much help at home except for some occasions where her children are able to help her with meals or around the house. In the last couple days she's noticed increasing shortness of breath as well as increasing balance issues. She presented to the hospital both because she felt she was more short of breath than baseline, as well as because she felt that if she did not come to the hospital she was can have another fall. She did not have a fall leading to this hospitalization, but has felt increasingly weak in her lower extremities as well as generally. She reports frequent chills, denies fevers. She denies nausea, vomiting, chest pain, palpitations, syncope, cough, abdominal pain, constipation, diarrhea, dysuria, dyschezia, numbness of extremities. In the emergency room, patient is afebrile, 110/70, 98% on 4 L nasal cannula, heart rate 61. CBC is unremarkable. Chemistry show a CO2 of 32, otherwise unremarkable. Lower function tests are unremarkable. Troponin is less than 0.012. BNP is 47. Coags unremarkable. Chest x-ray shows COPD without any acute changes. EKG shows sinus rhythm with short [place] interval. All Systems reviewed and pertinent positives and negatives noted in HPI, all other symptoms are negative Gen: in no apparent distress, resting comfortably in bed Eyes: PERRL, no scleral injection or icterus HENT: normocephalic, atraumatic, good hearing acuity, moist mucous membranes Neck: no tracheal deviation, full range of motion Resp: Impaired air exchange, breathing with no accessory muscle use, no tactile fremitus, poor air exchange, quiet chest, mild end expiratory wheezing CVS: good distal perfusion x 4, no pitting edema, regular rate and rhythm without murmurs GI: soft, NTTP, ND, no hepatosplenomegaly : no suprapubic tenderness, no CVAT, lira catheter not present MSK: no clubbing, no cyanosis, no noted contractures of extremities Skin: no noted rashes, petechiae; temperature of skin is appropriate Neuro: moving all extremities without signs of weakness, CN II-XII intact Psych: cooperative, euthymic mood, insight and judgment intact Labs and imaging as above Assessment/plan: Acute on chronic respiratory failure with hypoxia and hypercarbia COPD exacerbation -Admit to inpatient, telemetry -DuoNeb's -Steroids -Antibiotics -Oxygen as needed -PT consult -Palliative care consult Hypertension Hyperlipidemia History of CVA Nicotine abuse -Home medications reviewed and reconciled -NRT available upon request -Cessation counseling provided Patient is DNR/DNI DVT prophylaxis with heparin 2 times a day Past Medical History Past Medical History: Atrial Fibrillation, COPD, CVA/TIA, Eye Disorder, DEN D/Reflux, Hyperlipidemia, Pneumonia Additional Past Medical History / Comment(s): Chronic atrial fibrillation per PMH but pt has no recollection of this, bronchiectasis, essential tremors, previous TIA, chronic lumbar back pain, past 6 months R shoulder/cervical pain, balance difficulty with falls, occasional low urinary output and uses lasix prn for this, bilateral varicose veins, dysphagia-able to take pills one at a time with water, small hiatal hernia, restless leg syndrome, seasonal ALLERGIES, History of Any Multi-Drug Resistant Organisms: None Reported Past Surgical History: Hysterectomy Additional Past Surgical History / Comment(s): 11/27/15 EGD with bx, bilateral cataracts removed with lens implants, colonoscopy with 1 benign polypectomy. Past Anesthesia/Blood Transfusion Reactions: No Reported Reaction Past Psychological History: Anxiety, Depression Smoking Status: Current some day smoker Past Alcohol Use History: None Reported Past Drug Use History: None Reported - Past Family History Father Family Medical History: Cancer Additional Family Medical History / Comment(s): Pt thinks father might have from stomach cancer. She was 2 yrs old when he . Sister(s) Family Medical History: Cancer Additional Family Medical History / Comment(s): Half sister with brain cancer. Mother Family Medical History: Dementia Additional Family Medical History / Comment(s): Mother had gallstones and a partial thyroidectomy for noncancerous reasons. Medications and Allergies Home Medications Medication Instructions Recorded Confirmed Type Omeprazole 40 mg PO DAILY 08/24/17 03/15/22 History Albuterol Sulfate [Proair Hfa] 2 puff INHALATION RT-Q4H PRN 03/06/18 03/15/22 History Aspirin 81 mg PO DAILY 10/24/18 03/15/22 History Ipratropium Nebulized [Atrovent 0.5 mg INHALATION RT-Q4H PRN 10/24/18 03/15/22 H istory Nebulized 0.2 MG/ML] ALPRAZolam [Xanax] 0.5 mg PO BID PRN 05/21/21 03/15/22 History Albuterol Nebulized [Ventolin 2.5 mg INHALATION RT-Q6H PRN 05/21/21 03/15/22 History Nebulized] Budesonide [Pulmicort] 0.5 mg INHALATION RT-BID 05/21/21 03/15/22 History FLUoxetine HCL [PROzac] 40 mg PO DAILY 05/21/21 03/15/22 History Acetaminophen Tab [Tylenol] 500 - 1,000 mg PO Q6HR PRN 10/30/21 03/15/22 History Cholecalciferol [Vitamin D3 (125 125 mcg PO DAILY 10/30/21 03/15/22 History Mcg = 5000 Iu)] Cyanocobalamin (Vitamin B-12) 1,000 mcg PO DAILY 10/30/21 03/15/22 History [Vitamin B-12] busPIRone HCl [Buspar] 5 mg PO BID PRN 10/30/21 03/15/22 History Diclofenac Sodium Gel [Voltaren 2 gm TOPICAL QID PRN 12/05/21 03/15/22 History Gel] Propranolol [Inderal] 40 mg PO BID 03/15/22 03/15/22 History Allergies Allergy/AdvReac Type Severity Reaction Status Date / Time budesonide [From Symbicort] Allergy Unknown Verified 03/15/22 16:19 formoterol [From Symbicort] Allergy Unknown Verified 03/15/22 16:19 gabapentin Allergy Unknown Verified 03/15/22 16:19 ibuprofen Allergy Unknown Verified 03/15/22 16:19 Iodinated Contrast Media Allergy Unknown Verified 03/15/22 16:19 [Iodinated Contrast- Oral and IV Dye] iodine Allergy Rash/Hives Verified 03/15/22 16:19 lorazepam [From Ativan] Allergy Hallucinati Verified 03/15/22 16:19 ons Sulfa (Sulfonamide Allergy Rash/Hives Verified 03/15/22 16:19 Antibiotics) topiramate [From Topamax] Allergy Unknown Verified 03/15/22 16:19 prednisone AdvReac dizziness Verified 03/15/22 16:19 zolpidem tartrate AdvReac Hallucinati Verified 03/15/22 16:19 [From Christineien] ons Physical Exam Osteopathic Statement: *. No significant issues noted on an osteopathic structural exam other than those noted in the History and Physical/Consult. Vitals: Vital Signs Temp Pulse Resp BP Pulse Ox 03/15/22 16:20 97.4 F L 61 16 110/70 98 03/15/22 15:43 66 03/15/22 15:13 62 03/15/22 14:24 97.4 F L 62 18 101/71 99 Intake and Output 03/15/22 03/15/22 03/15/22 06:59 14:59 22:59 Other: Weight 56.699 kg Results CBC & Chem 7: 03/15/22 14:51 03/15/22 14:51 Labs: Abnormal Lab Results - Last 24 Hours (Table) 03/15/22 Range/Units 14:51 Carbon Dioxide 32 H (22-30) mmol/L
[2022-03-15] MEDS: methylPREDNISolone SOD SUCCI 125 MG/2 ML VIAL IV SCH (18:33)
[2022-03-15] MEDS: IPRATROPIUM-ALBUTEROL 3 ML NEB INHALATION SCH (19:54)
[2022-03-15] MEDS ORDERED: SYMBICORT 160-4.5 MCG INHALER INHALATION SCH (20:00)
[2022-03-15] MEDS: HEPARIN SODIUM,PORCINE/PF 5,000 UNIT/0.5 ML SYRINGE SQ SCH (20:47)
[2022-03-15] MEDS: PROPRANOLOL 40 MG TAB PO SCH (20:49)
[2022-03-16] MEDS: methylPREDNISolone SOD SUCCI 125 MG/2 ML VIAL IV SCH ×5 (00:05→23:27)
[2022-03-16] MEDS: PANTOPRAZOLE 40 MG TABLET PO SCH (06:12)
[2022-03-16 06:58] LABS: Basophils % (A) 0 %; Eosinophils % (A) 0 %; HCT 40.3 % (34.0-46.0); HGB 13.5 gm/dL (11.4-16.0); Lymphocytes # (A) 0.8 k/uL (1.0-4.8); Lymphocytes % (A) 12 %; MCH 30.9 pg (25.0-35.0); MCHC 33.4 g/dL (31.0-37.0); MCV 92.3 fL (80.0-100.0); Mean Platelet Volume 8.1; Monocytes # (A) 0.2 k/uL (0-1.0); Monocytes % (A) 2 %; Neutrophils # (A) 5.3 k/uL (1.3-7.7); Neutrophils % (A) 84 %; Platelet Count 282 k/uL (150-450); RBC 4.37 m/uL (3.80-5.40); RDW 13.2 % (11.5-15.5); WBC 6.3 k/uL (3.8-10.6)
[2022-03-16 07:11] LABS: African American GFR (CKD) >90 (>60 ml/min/1.73 sqM); Anion Gap 6 mmol/L; Blood Urea Nitrogen 20 mg/dL (7-17); Calcium 9.3 mg/dL (8.4-10.2); Carbon Dioxide 30 mmol/L (22-30); Chloride 101 mmol/L (98-107); Glucose 131 mg/dL (74-99); Magnesium 2.1 mg/dL (1.6-2.3); Non-African American GFR(CKD) 82 (>60 ml/min/1.73 sqM); Potassium 4.2 mmol/L (3.5-5.1); Sodium 137 mmol/L (137-145)
[2022-03-16] MEDS: IPRATROPIUM-ALBUTEROL 3 ML NEB INHALATION SCH ×4 (08:11→19:29)
[2022-03-16] MEDS: AMOXIC-POT CLAV 875-125MG 1 EACH TAB PO SCH ×2 (09:12→20:14)
[2022-03-16] MEDS: CYANOCOBALAMIN 500 MCG TAB PO SCH (09:12)
[2022-03-16] MEDS: CHOLECALCIFEROL 125 MCG (5000 IU) TABLET PO SCH (09:12)
[2022-03-16] MEDS: ASPIRIN 81 MG PO SCH (09:12)
[2022-03-16] MEDS: FLUoxetine HCL 20 MG CAP PO SCH (09:12)
[2022-03-16] MEDS: PROPRANOLOL 40 MG TAB PO SCH ×2 (09:13→20:14)
[2022-03-16] MEDS: HEPARIN SODIUM,PORCINE/PF 5,000 UNIT/0.5 ML SYRINGE SQ SCH ×2 (09:13→20:14)
[2022-03-16] MEDS: ALPRAZolam 0.5 MG TAB PO PRN (09:47)
--- NOTE | 2022-03-16 12:24 | P.PN ---
Subjective Progress Note Date: 03/16/22 Principal diagnosis: sob She is feeling better today, she is asking to go home. States she is breathing well today. No fevers or chills. No pain. Spoke to son on the phone, she is still smoking and was having sob for few days. She has been weak and was falling on and off the past few weeks. Also son states that she does not eat much of anything. Objective - Vital Signs Vital signs: Vital Signs Temp 98.4 F 03/16/22 07:48 Pulse 66 03/16/22 08:23 Resp 16 03/16/22 07:48 BP 131/89 03/16/22 07:48 Pulse Ox 99 03/16/22 08:11 FiO2 Intake & Output 03/15/22 03/16/22 03/16/22 18:59 06:59 18:59 Weight 56.699 kg 56.699 kg Other: Voiding Method Bedside Commode # Voids 4 0 - Exam Gen: in no apparent distress, resting comfortably in bed Eyes: PERRL, no scleral injection or icterus HENT: normocephalic, atraumatic, good hearing acuity, moist mucous membranes Neck: no tracheal deviation, full range of motion Resp: Impaired air exchange, breathing with no accessory muscle use, no tactile fremitus, poor air exchange, quiet chest, mild end expiratory wheezing CVS: good distal perfusion x 4, no pitting edema, regular rate and rhythm without murmurs GI: soft, NTTP, ND, no hepatosplenomegaly : no suprapubic tenderness, no CVAT, lira catheter not present MSK: no clubbing, no cyanosis, no noted contractures of extremities Skin: no noted rashes, petechiae; temperature of skin is appropriate Neuro: moving all extremities without signs of weakness, CN II-XII intact Psych: cooperative, euthymic mood, insight and judgment intact - Labs CBC & Chem 7: 03/16/22 06:32 03/16/22 06:32 Labs: Abnormal Lab Results - Last 24 Hours (Table) 03/15/22 03/15/22 03/16/22 Range/Units 14:51 16:59 06:32 Lymphocytes # 0.8 L (1.0-4.8) k/uL VBG pCO2 57 H (37-51) mmHg VBG HCO3 30 H (24-28) mmol/L Carbon Dioxide 32 H (22-30) mmol/L BUN (7-17) mg/dL Glucose (74-99) mg/dL 03/16/22 Range/Units 06:32 Lymphocytes # (1.0-4.8) k/uL VBG pCO2 (37-51) mmHg VBG HCO3 (24-28) mmol/L Carbon Dioxide (22-30) mmol/L BUN 20 H (7-17) mg/dL Glucose 131 H (74-99) mg/dL Assessment and Plan Plan: Acute on chronic respiratory failure with hypoxia and hypercarbia COPD exacerbation -DuoNeb's -Steroids -Antibiotics -Oxygen as needed -PT consult -Palliative care consult Hypertension Hyperlipidemia History of CVA Nicotine abuse -Resume home meds -NRT available upon request -Cessation counseling provided General weakness -PT consult Patient is DNR/DNI DVT prophylaxis with heparin 2 times a day Anticipated discharge in am
--- NOTE | 2022-03-16 14:52 | P.CONS ---
History of Present Illness - Reason for Consult Consult date: 03/16/22 Goals of care Requesting physician: Nydia Pulido - Chief Complaint Shortness of breath - History of Present Illness This is an 81-year-old female with past mental history significant for COPD, A fib, CVA, GERD, and HLD. She wears 4L home O2. She presented to the emergency center with complaints of increasing shortness of breath for the last few days. Patient denies any chest pain or palpitations. Patient denies any recent fever chills or cough. Patient denies any abdominal pain patient denies nausea vomiting diarrhea. Patient denies any swelling to the legs or calf tenderness. Patient denies headache patient denies numbness weakness. Patient denies any lightheadedness dizziness or near syncopal episode. Chest x-ray shows COPD without any acute changes. EKG shows sinus rhythm with short [place] interval. Review of Systems Constitutional: Reports as per HPI Past Medical History Past Medical History: Atrial Fibrillation, COPD, CVA/TIA, Eye Disorder, GERD/Reflux, Hyperlipidemia, Pneumonia Additional Past Medical History / Comment(s): Chronic atrial fibrillation per PMH but pt has no recollection of this, bronchiectasis, essential tremors, previous TIA, chronic lumbar back pain, past 6 months R shoulder/cervical pain, balance difficulty with falls, occasional low urinary output and uses lasix prn for this, bilateral varicose veins, dysphagia-able to take pills one at a time with water, small hiatal hernia, restless leg syndrome, seasonal ALLERGIES, History of Any Multi-Drug Resistant Organisms: None Reported Past Surgical History: Hysterectomy Additional Past Surgical History / Comment(s): 11/27/15 EGD with bx, bilateral cataracts removed with lens implants, colonoscopy with 1 benign polypectomy. Past Anesthesia/Blood Transfusion Reactions: No Reported Reaction Past Psychological History: Anxiety, Depression Additional Psychological History / Comment(s): Pt's son, Sonu lives with her. She uses a cane or walker to ambulate. Smoking Status: Current some day smoker Past Alcohol Use History: None Reported Additional Past Alcohol Use History / Comment(s): Pt states she started smoking in her early 20's. She quit for several yrs, during her pregnancies and when her children were young. She smokes a cigeratte once in awhile when stressed Past Drug Use History: None Reported - Past Family History Father Family Medical History: Cancer Additional Family Medical History / Comment(s): Pt thinks father might have from stomach cancer. She was 2 yrs old when he . Sister(s) Family Medical History: Cancer Additional Family Medical History / Comment(s): Half sister with brain cancer. Mother Family Medical History: Dementia Additional Family Medical History / Comment(s): Mother had gallstones and a partial thyroidectomy for noncancerous reasons. Medications and Allergies Home Medications Medication Instructions Recorded Confirmed Type Omeprazole 40 mg PO DAILY 08/24/17 03/15/22 History Albuterol Sulfate [Proair Hfa] 2 puff INHALATION RT-Q4H PRN 03/06/18 03/15/22 History Aspirin 81 mg PO DAILY 10/24/18 03/15/22 History Ipratropium Nebulized [Atrovent 0.5 mg INHALATION RT-Q4H PRN 10/24/18 03/15/22 History Nebulized 0.2 MG/ML] ALPRAZolam [Xanax] 0.5 mg PO BID PRN 05/21/21 03/15/22 History Albuterol Nebulized [Ventolin 2.5 mg INHALATION RT-Q6H PRN 05/21/21 03/15/22 History Nebulized] Budesonide [Pulmicort] 0.5 mg INHALATION RT-BID 05/21/21 03/15/22 History FLUoxetine HCL [PROzac] 40 mg PO DAILY 05/21/21 03/15/22 History Acetaminophen Tab [Tylenol] 500 - 1,000 mg PO Q6HR PRN 10/30/21 03/15/22 History Cholecalciferol [Vitamin D3 (125 125 mcg PO DAILY 10/30/21 03/15/22 History Mcg = 5000 Iu)] Cyanocobalamin (Vitamin B-12) 1,000 mcg PO DAILY 10/30/21 03/15/22 History [Vitamin B-12] busPIRone HCl [Buspar] 5 mg PO BID PRN 10/30/21 03/15/22 History Diclofenac Sodium Gel [Voltaren 2 gm TOPICAL QID PRN 12/05/21 03/15/22 History Gel] Propranolol [Inderal] 40 mg PO BID 03/15/22 03/15/22 History Allergies Allergy/AdvReac Type Severity Reaction Status Date / Time budesonide [From Symbicort] Allergy Unknown Verified 03/15/22 16:19 formoterol [From Symbicort] Allergy Unknown Verified 03/15/22 16:19 gabapentin Allergy Unknown Verified 03/15/22 16:19 ibuprofen Allergy Unknown Verified 03/15/22 16:19 Iodinated Contrast Media Allergy Unknown Verified 03/15/22 16:19 [Iodinated Contrast- Oral and IV Dye] iodine Allergy Rash/Hives Verified 03/15/22 16:19 lorazepam [From Ativan] Allergy Hallucinati Verified 03/15/22 16:19 ons Sulfa (Sulfonamide Allergy Rash/Hives Verified 03/15/22 16:19 Antibiotics) topiramate [From Topamax] Allergy Unknown Verified 03/15/22 16:19 prednisone AdvReac dizziness Verified 03/15/22 16:19 zolpidem tartrate AdvReac Hallucinati Verified 03/15/22 16:19 [From Ambien] ons Physical Exam Vitals: Vital Signs Temp Pulse Pulse Resp BP BP Pulse Ox 03/16/22 13:20 98.2 F 60 16 113/67 100 03/16/22 08:23 66 03/16/22 08:11 66 99 03/16/22 07:48 98.4 F 68 16 131/89 99 03/16/22 03:58 98.2 F 93 19 100/62 93 L 03/15/22 21:20 64 18 102/57 97 03/15/22 20:10 64 03/15/22 20:00 97.9 F 59 L 20 101/55 97 03/15/22 19:56 74 18 100/63 98 03/15/22 19:55 64 03/15/22 18:36 65 18 114/64 96 03/15/22 16:20 97.4 F L 61 16 110/70 98 03/15/22 15:43 66 03/15/22 15:13 62 Intake and Output 03/15/22 03/16/22 03/16/22 22:59 06:59 14:59 Intake Total 240 Balance 240 Intake: Oral 240 Other: Voiding Method Bedside Commode # Voids 4 0 Weight 56.699 kg General: Well developed, well nourished. Chronically ill appearing HEENT: Head is atraumatic, normocephalic. Sclera are clear.Mucus membranes moist. CV: Heart regular in rate and rhythm positive S1 and S2. No peripheral edema Lungs: Clear to auscultation bilaterally. No wheezes rales or rhonchi. Respirations even and slightly labored. On 4L NC. Abdomen/GI: Soft.No guarding, rigidity, or abdominal tenderness. Skin: Warm and dry Neurologic: Awake, alert and oriented times 3. CN II-XII grossly intact. Trem ors/shaky hands Psychiatric: Appropriate mood and affect. Results CBC & Chem 7: 03/16/22 06:32 03/16/22 06:32 Labs: Abnormal Lab Results - Last 24 Hours (Table) 03/15/22 03/15/22 03/16/22 Range/Units 14:51 16:59 06:32 Lymphocytes # 0.8 L (1.0-4.8) k/uL VBG pCO2 57 H (37-51) mmHg VBG HCO3 30 H (24-28) mmol/L Carbon Dioxide 32 H (22-30) mmol/L BUN (7-17) mg/dL Glucose (74-99) mg/dL 03/16/22 Range/Units 06:32 Lymphocytes # (1.0-4.8) k/uL VBG pCO2 (37-51) mmHg VBG HCO3 (24-28) mmol/L Carbon Dioxide (22-30) mmol/L BUN 20 H (7-17) mg/dL Glucose 131 H (74-99) mg/dL Chest x-ray: report reviewed Assessment and Plan Assessment: Social * Occupation - retired, 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 * Marital status - * Children/grandchildren - 3 adult children, 2 boys and one girl * Residence - she has a house and her son lives with her * ETOH - no * Tobacco - occasionally smokes * Illicit drugs - no Spiritual/Cultural * A spiritual person - yes * Mosque - Christian * Belong to a particular sikhism - no * Beliefs a source of comfort and strength - yes * Quaker or cultural practices restrictions - no * EOL considerations/rituals -no Functional Assessment * Able to walk independently - yes * Assistive devices - rolling walker * Able to use the bathroom independently - yes * Continent - yes * Require assistance bathing- does not require assistance, but she likes to make sure someone is home with her * Able to feed self - yes * Who prepares meals - son * How many meals a day eaten - to * What percentage of meals eaten daily - approximately 50% * Able to clean house/do laundry - son cleans the house, the patient likes to do her own laundry * Transportation - the patient drives occasionally * Able to shop - no * Who manages medications - patient * Who manages finances - the patient and her daughter together Psychological/Emotional * Dementia present - no * Insight and judgment - intact * Depression - no * Suicidal thoughts - no * Good support system - yes, her children * Patients goals - optimize functionality * Frequent hospitalizations - yes * Desire to keep coming back to the hospital for treatment - yes Symptoms * Pain - no current pain, continue Tylenol when necessary * Fatigue - generalized weakness and fatigue * SOB - yes, with activity. Continue albuterol, Augmentin, Solu-Medrol, Symbicort, and DuoNeb * Insomnia - no * N/V - no * Anxiety - yes continue Xanax and BuSpar as needed * Depression - no continue Prozac * Confusion - no * Agitation - no * Hallucinations - no * Appetite/weight loss - patient reports a good appetite. No recent weight loss. Continue regular diet * Dysphagia - no * Constipation - no LBM today * Incontinence - no * Itch - no * Cough - no Plan: Summary/Goals - The patient is sitting up in the chair. She is pleasant and very talkative. Information provided regarding palliative care philosophies and services. Education provided regarding patient's COPD and the trajectory of her disease. The patient currently wears 4 L home O2. She likes the idea of having her symptoms controlled at home in order to prevent hospital readmissions. However she is not sure if she likes the idea of somebody coming into her home. She stated she does not trust strangers. She was informed that it is 1 nurse practitioner that would be visiting her on a monthly basis. She stated she would talk to her family about it. Recommendations - home with outpatient palliative care when cleared medically Advanced Directives - none on file Code Status - DO NOT RESUSCITATE Thank you for this consultation Stefanie Clemons [facility] [id number] Email: [email or web address] Time with Patient: Greater than 30
[2022-03-16] MEDS: BUDESONIDE 0.5 MG/2 ML NEBU INHALATION SCH (19:30)
[2022-03-17] MEDS: PANTOPRAZOLE 40 MG TABLET PO SCH (06:06)
[2022-03-17] MEDS: methylPREDNISolone SOD SUCCI 125 MG/2 ML VIAL IV SCH (06:06)
[2022-03-17] MEDS: IPRATROPIUM-ALBUTEROL 3 ML NEB INHALATION SCH ×2 (07:45→11:53)
[2022-03-17] MEDS: BUDESONIDE 0.5 MG/2 ML NEBU INHALATION SCH (07:45)
[2022-03-17] MEDS: ASPIRIN 81 MG PO SCH (08:25)
[2022-03-17] MEDS: ALPRAZolam 0.5 MG TAB PO PRN (08:25)
[2022-03-17] MEDS: FLUoxetine HCL 20 MG CAP PO SCH (08:25)
[2022-03-17] MEDS: CHOLECALCIFEROL 125 MCG (5000 IU) TABLET PO SCH (08:25)
[2022-03-17] MEDS: CYANOCOBALAMIN 500 MCG TAB PO SCH (08:25)
[2022-03-17] MEDS: HEPARIN SODIUM,PORCINE/PF 5,000 UNIT/0.5 ML SYRINGE SQ SCH (08:26)
[2022-03-17] MEDS: PROPRANOLOL 40 MG TAB PO SCH (08:26)
[2022-03-17] MEDS: AMOXIC-POT CLAV 875-125MG 1 EACH TAB PO SCH (08:26)
[2022-03-17 10:06] VITALS: BP 117/69; PULSE 66; RESP 16; TEMP 98.3
--- NOTE | 2022-03-17 11:39 | P.DS ---
Providers Date of admission: 03/15/22 16:57 Expected date of discharge: 03/17/22 Attending physician: Maricarmen Ambrocio MD Consults: 03/15/22 18:20 Consult to Palliative Care Routine Consulting Provider: Stefanie Clemons Consult Reason/Comments: GoC for COPD Do you want consulting provider notified?: Yes Primary care physician: Physician Nonstaff Hospital Course: 81-year-old frail elderly woman with history of COPD on home O2 but noncompliant, active smoker, hypertension, hyperlipidemia, history of CVA presented for evaluation of dyspnea, as well as increasing weakness and falls. Falls occure sporadically every few months. She continues to smoke according to son. She has not been eating well according to son as well. Patient says that she lives at home and does not have much help at home except for some occasions where her children are able to help her with meals or around the house. In the last couple days she's noticed increasing shortness of breath as well as increasing balance issues. She presented to the hospital both because she felt she was more short of breath than baseline, as well as because she felt that if she did not come to the hospital she was going to have another fall. She did not have a fall leading to this hospitalization, but has felt increasingly weak in her lower extremities as well as generally. She reports frequent chills, denies fevers. She denies nausea, vomiting, chest pain, palpitations, syncope, cough, abdominal pain, constipation, diarrhea, dysuria, dyschezia, numbness of extremities. In the emergency room, patient is afebrile, 110/70, 98% on 4 L nasal cannula, heart rate 61. CBC is unremarkable. Chemistry show a CO2 of 32, otherwise unremarkable. Lower function tests are unremarkable. Troponin is less than 0 .012. BNP is 47. Coags unremarkable. Chest x-ray shows COPD without any acute changes. EKG shows sinus rhythm with short TN interval. She was admitted for COPD exacerbation, she was started on IV steroids and augmentin. Was resumed on nebs. Patient was seen by physical therapy who recommended home care, this was arranged by care management. Her breathing felt better during the course of the hospitalization. She is currently doing well. Continues to require baseline oxygen from 2 to 4 L. She'll be discharged today in stable condition. She was seen and examined face to face on the day of discharge 03/17 Time for discharge 35 min Plan - Discharge Summary New Discharge Prescriptions: New Amoxic-Pot Clav 875-125Mg [Augmentin 875-125] 1 each PO BID 5 Days #10 tab methylPREDNISolone Dose Pack [Medrol Dose Pack] 4 mg PO DIRECTED #1 packet Continue Omeprazole 40 mg PO DAILY Albuterol Sulfate [Proair Hfa] 2 puff INHALATION RT-Q4H PRN PRN Reason: Shortness Of Breath Ipratropium Nebulized [Atrovent Nebulized 0.2 MG/ML] 0.5 mg INHALATION RT-Q4H PRN PRN Reason: Shortness Of Breath Aspirin 81 mg PO DAILY Albuterol Nebulized [Ventolin Nebulized] 2.5 mg INHALATION RT-Q6H PRN PRN Reason: Shortness Of Breath ALPRAZolam [Xanax] 0.5 mg PO BID PRN PRN Reason: Anxiety Acetaminophen Tab [Tylenol] 500 - 1,000 mg PO Q6HR PRN PRN Reason: Pain busPIRone HCl [Buspar] 5 mg PO BID PRN PRN Reason: Anxiety Cholecalciferol [Vitamin D3 (125 Mcg = 5000 Iu)] 125 mcg PO DAILY Propranolol [Inderal] 40 mg PO BID FLUoxetine HCL [PROzac] 40 mg PO DAILY Budesonide [Pulmicort] 0.5 mg INHALATION RT-BID Cyanocobalamin (Vitamin B-12) [Vitamin B-12] 1,000 mcg PO DAILY Diclofenac Sodium Gel [Voltaren Gel] 2 gm TOPICAL QID PRN PRN Reason: Pain Discharge Medication List Omeprazole 40 mg PO DAILY 08/24/17 [History] Albuterol Sulfate [Proair Hfa] 2 puff INHALATION RT-Q4H PRN 03/06/18 [History] Aspirin 81 mg PO DAILY 10/24/18 [History] Ipratropium Nebulized [Atrovent Nebulized 0.2 MG/ML] 0.5 mg INHALATION RT-Q4H PRN 10/24/18 [History] ALPRAZolam [Xanax] 0.5 mg PO BID PRN 05/21/21 [History] Albuterol Nebulized [Ventolin Nebulized] 2.5 mg INHALATION RT-Q6H PRN 05/21/21 [History] Budesonide [Pulmicort] 0.5 mg INHALATION RT-BID 05/21/21 [History] FLUoxetine HCL [PROzac] 40 mg PO DAILY 05/21/21 [History] Acetaminophen Tab [Tylenol] 500 - 1,000 mg PO Q6HR PRN 10/30/21 [History] Cholecalciferol [Vitamin D3 (125 Mcg = 5000 Iu)] 125 mcg PO DAILY 10/30/21 [History] Cyanocobalamin (Vitamin B-12) [Vitamin B-12] 1,000 mcg PO DAILY 10/30/21 [History] busPIRone HCl [Buspar] 5 mg PO BID PRN 10/30/21 [History] Diclofenac Sodium Gel [Voltaren Gel] 2 gm TOPICAL QID PRN 12/05/21 [History] Propranolol [Inderal] 40 mg PO BID 03/15/22 [History] Amoxic-Pot Clav 875-125Mg [Augmentin 875-125] 1 each PO BID 5 Days #10 tab 03/17/22 [Rx] methylPREDNISolone Dose Pack [Medrol Dose Pack] 4 mg PO DIRECTED #1 packet 03/17/22 [Rx] Follow up Appointment(s)/Referral(s): Wen Wu PAC [REFERRING] - 1-2 days Discharge/Stand Alone Forms: Community Resources, Help In The Home
== END 2022-03-17 12:36 | disposition home or self-care (01) | DRG 190 ==
LOC: EC 14:22 → 4SSUR 16:57 → 6NMEDSUR 20:23
PROVIDERS: ADMIT Family Medicine; ATTEND Family Medicine
DX: J44.1 Chronic obstructive pulmonary disease with (acute) exacerbation (principal); J96.21 Acute and chronic respiratory failure with hypoxia; J96.22 Acute and chronic respiratory failure with hypercapnia; I48.20 Chronic atrial fibrillation, unspecified; I10 Essential (primary) hypertension; Z66 Do not resuscitate; Z71.6 Tobacco abuse counseling; E78.5 Hyperlipidemia, unspecified; I83.93 Asymptomatic varicose veins of bilateral lower extremities; G25.81 Restless legs syndrome; J30.2 Other seasonal allergic rhinitis; F17.210 Nicotine dependence, cigarettes, uncomplicated; R29.6 Repeated falls; F32.A Depression, unspecified; F41.9 Anxiety disorder, unspecified; K59.00 Constipation, unspecified; Z79.82 Long term (current) use of aspirin; Z79.899 Other long term (current) drug therapy; Z86.73 Personal history of transient ischemic attack (TIA), and cerebral infarction without residual deficits; Z90.710 Acquired absence of both cervix and uterus; Z91.199 Patient's noncompliance with other medical treatment and regimen due to unspecified reason; Z96.1 Presence of intraocular lens; Z99.81 Dependence on supplemental oxygen; Z98.42 Cataract extraction status, left eye; Z98.41 Cataract extraction status, right eye; Z88.8 Allergy status to other drugs, medicaments and biological substances; Z88.6 Allergy status to analgesic agent; Z87.19 Personal history of other diseases of the digestive system; Z87.01 Personal history of pneumonia (recurrent); Z88.2 Allergy status to sulfonamides; Z91.041 Radiographic dye allergy status
CPT/HCPCS: 36415; 71046; 80048; 80053; 82803; 83605; 83735; 83880; 84484; 85025; 85610; 85730; 87040; 93005; 94640; 94760; 96372; 96374; 96375; 99285

== ENCOUNTER 2022-03-28 10:34 | Emergency (ER) | payer MEDICARE ==
[2022-03-28 10:44] VITALS: RESP 18; TEMP 98.4
[2022-03-28 10:50] LABS: Glucose,Whole Blood 80 mg/dL (70-110)
[2022-03-28] MEDS ORDERED: SODIUM CHLORIDE 0.9% 500 ML 500 ML IV ONE (11:03)
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
[2022-03-28 11:26] LABS: Basophils % (A) 0 %; Eosinophils % (A) 0 %; HCT 40.6 % (34.0-46.0); HGB 13.6 gm/dL (11.4-16.0); Lymphocytes % (A) 14 %; MCH 30.8 pg (25.0-35.0); MCHC 33.5 g/dL (31.0-37.0); MCV 91.8 fL (80.0-100.0); Mean Platelet Volume 8.1; Monocytes # (A) 0.4 k/uL (0-1.0); Monocytes % (A) 5 %; Neutrophils # (A) 5.5 k/uL (1.3-7.7); Neutrophils % (A) 76 %; Platelet Count 238 k/uL (150-450); RBC 4.42 m/uL (3.80-5.40); RDW 13.3 % (11.5-15.5); WBC 7.1 k/uL (3.8-10.6)
[2022-03-28 11:38] LABS: Albumin 3.8 g/dL (3.5-5.0); Calcium 8.4 mg/dL (8.4-10.2); Potassium 4.4 mmol/L (3.5-5.1); Total Bilirubin 0.8 mg/dL (0.2-1.3); Total Protein 6.3 g/dL (6.3-8.2)
--- NOTE | 2022-03-28 12:08 | XR ---
EXAMINATION TYPE: XR chest 2V DATE OF EXAM: 03/28/2022 COMPARISON: 03/15/2022 TECHNIQUE: PA and lateral views submitted. HISTORY: Altered mental status FINDINGS: The lungs are clear and there is no pneumothorax, pleural effusion, or focal pneumonia. Chronic-gerson earing superior endplate deformity thoracolumbar junction. Hyperinflation compatible COPD. Stable pro minence of the right hilum. Arthropathy of the shoulder. Diffuse osteopenia. IMPRESSION: 1. No acute process. Correlate for COPD.
[2022-03-28 13:46] LABS: Appearance,Urine Clear (Clear); Bilirubin,Urine Negative (Negative); Blood,Urine Small (Negative); Color,Urine Yellow; Glucose,Urine (UA) Negative (Negative); Hyaline Casts,Urine 3 /lpf (0-2); Ketones,Urine 3+ (Negative); Leukocyte Esterase,Urine Negative (Negative); Mucus,Urine Rare /hpf; Nitrite,Urine Negative (Negative); PH, Urine 5.5 (5.0-8.0); Protein,Urine Trace (Negative); RBC,Urine 2 /hpf (0-5); Specific Gravity,Urine 1.023 (1.001-1.035); Squamous Epithelial Cell,Urine <1 /hpf (0-4); Urobilinogen,Urine <2.0 mg/dL (<2.0); WBC,Urine <1 /hpf (0-5)
[2022-03-28 16:01] VITALS: BP 126/81; PULSE 87
== END 2022-03-28 16:01 | disposition home or self-care (01) ==
LOC: EC 10:34
DX: U07.1 COVID-19 (principal); F03.90 Unspecified dementia, unspecified severity, without behavioral disturbance, psychotic disturbance, mood disturbance, and anxiety; I48.91 Unspecified atrial fibrillation; J44.9 Chronic obstructive pulmonary disease, unspecified; G45.9 Transient cerebral ischemic attack, unspecified; K21.9 Gastro-esophageal reflux disease without esophagitis; F41.9 Anxiety disorder, unspecified; F32.A Depression, unspecified; F17.200 Nicotine dependence, unspecified, uncomplicated; Z79.82 Long term (current) use of aspirin; Z79.51 Long term (current) use of inhaled steroids; Z79.899 Other long term (current) drug therapy; Z88.8 Allergy status to other drugs, medicaments and biological substances; Z88.6 Allergy status to analgesic agent; Z88.2 Allergy status to sulfonamides; Z91.041 Radiographic dye allergy status
CPT/HCPCS: 36415; 71046; 80053; 81001; 84484; 85025; 87635; 93005; 99285

== ENCOUNTER 2022-05-24 05:06 | Emergency (ER) | payer MEDICARE ==
[2022-05-24 05:16] VITALS: TEMP 98.4
[2022-05-24] MEDS ORDERED: SODIUM CHLORIDE 0.9% 1,000 ML IV STA (05:29)
[2022-05-24] MEDS ORDERED: MORPHINE SULFATE 2 MG/ML SYRINGE IVP STA (05:29)
--- NOTE | 2022-05-24 05:30 | ED ---
Fall HPI - General Source: patient, RN notes reviewed, old records reviewed, Caregiver Mode of arrival: EMS Limitations: altered mental status, physical limitation - History of Present Illness -: unknown Fall From: standing Fall Witnessed: no Place Fall Occurred: home Loss of Consciousness: none Prolonged Down Time?: no Symptoms Prior to Fall: none Context: tripped/slipped Associated Symptoms: denies <Jarvis Rasmussen - Last Filed: 05/24/22 05:52> <Juan Francisco Montelongo - Last Filed: 05/24/22 10:14> - General Chief Complaint: Fall Stated Complaint: Fall Time Seen by Provider: 05/24/22 05:28 - History of Present Illness Initial Comments: This is an 81-year-old female brought in by EMS patient is a poor story and unable to give history of why she is here what happened. Fall was in the past week lower nondescript symptoms patient states she feels weak. (Jarvis King) - Related Data Home Medications Medication Instructions Recorded Confirmed Omeprazole 40 mg PO DAILY 08/24/17 03/28/22 Albuterol Sulfate [Proair Hfa] 2 puff INHALATION RT-Q4H PRN 03/06/18 03/28/22 Aspirin 81 mg PO DAILY 10/24/18 03/28/22 Ipratropium Nebulized [Atrovent 0.5 mg INHALATION RT-Q4H PRN 10/24/18 03/28/22 Nebulized 0.2 MG/ML] ALPRAZolam [Xanax] 0.5 mg PO BID PRN 05/21/21 03/28/22 Albuterol Nebulized [Ventolin 2.5 mg INHALATION RT-Q6H PRN 05/21/21 03/28/22 Nebulized] Budesonide [Pulmicort] 0.5 mg INHALATION RT-BID 05/21/21 03/28/22 FLUoxetine HCL [PROzac] 40 mg PO DAILY 05/21/21 03/28/22 Acetaminophen Tab [Tylenol] 500 - 1,000 mg PO Q6HR PRN 10/30/21 03/28/22 Cholecalciferol [Vitamin D3 (125 125 mcg PO DAILY 10/30/21 03/28/22 Mcg = 5000 Iu)] Cyanocobalamin (Vitamin B-12) 1,000 mcg PO DAILY 10/30/21 03/28/22 [Vitamin B-12] busPIRone HCl [Buspar] 5 mg PO BID PRN 10/30/21 03/28/22 Diclofenac Sodium Gel [Voltaren 2 gm TOPICAL QID PRN 12/05/21 03/28/22 Gel] Propranolol [Inderal] 40 mg PO BID 03/15/22 03/28/22 Allergies Allergy/AdvReac Type Severity Reaction Status Date / Time budesonide [From Symbicort] Allergy Unknown Verified 05/24/22 05:16 formoterol [From Symbicort] Allergy Unknown Verified 05/24/22 05:16 gabapentin Allergy Unknown Verified 05/24/22 05:16 ibuprofen Allergy Unknown Verified 05/24/22 05:16 Iodinated Contrast Media Allergy Unknown Verified 05/24/22 05:16 [Iodinated Contrast- Oral and IV Dye] iodine Allergy Rash/Hives Verified 05/24/22 05:16 lorazepam [From Ativan] Allergy Hallucinati Verified 05/24/22 05:16 ons Sulfa (Sulfonamide Allergy Rash/Hives Verified 05/24/22 05:16 Antibiotics) topiramate [From Topamax] Allergy Unknown Verified 05/24/22 05:16 prednisone AdvReac dizziness Verified 05/24/22 05:16 zolpidem tartrate AdvReac Hallucinati Verified 05/24/22 05:16 [From Ambien] ons Review of Systems ROS Other: All systems not noted in ROS Statement are negative. <Jarvis Rasmussen - Last Filed: 05/24/22 05:52> ROS Other: All systems not noted in ROS Statement are negative. <Juan Francisco Montelongo - Last Filed: 05/24/22 10:14> ROS Statement: Those systems with pertinent positive or pertinent negative responses have been documented in the HPI. Past Medical History Past Medical History: Atrial Fibrillation, COPD, CVA/TIA, Eye Disorder, GERD/Reflux, Hyperlipidemia, Pneumonia Additional Past Medical History / Comment(s): Chronic atrial fibrillation per PMH but pt has no recollection of this, bronchiectasis, essential tremors, previous TIA, chronic lumbar back pain, past 6 months R shoulder/cervical pain, balance difficulty with falls, occasional low urinary output and uses lasix prn for this, bilateral varicose veins, dysphagia-able to take pills one at a time with water, small hiatal hernia, restless leg syndrome, seasonal ALLERGIES, History of Any Multi-Drug Resistant Organisms: None Reported Past Surgical History: Hysterectomy Additional Past Surgical History / Comment(s): 11/27/15 EGD with bx, bilateral cataracts removed with lens implants, colonoscopy with 1 benign polypectomy. Past Anesthesia/Blood Transfusion Reactions: No Reported Reaction Past Psychological History: Anxiety, Depression Smoking Status: Current some day smoker Past Alcohol Use History: None Reported Past Drug Use History: None Reported - Past Family History Father Family Medical History: Cancer Additional Family Medical History / Comment(s): Pt thinks father might have from stomach cancer. She was 2 yrs old when he . Sister(s) Family Medical History: Cancer Additional Family Medical History / Comment(s): Half sister with brain cancer. Mother Family Medical History: Dementia Additional Family Medical History / Comment(s): Mother had gallstones and a partial thyroidectomy for noncancerous reasons. <Jarvis Rasmussen Filed: 05/24/22 05:52> General Exam Limitations: physical limitation General appearance: alert, in no apparent distress Head exam: Present: atraumatic, normocephalic, normal inspection Eye exam: Present: normal appearance, PERRL, EOMI. Absent: scleral icterus, conjunctival injection, periorbital swelling ENT exam: Present: normal exam, mucous membranes moist Neck exam: Present: normal inspection. Absent: tenderness, meningismus, lympha denopathy Respiratory exam: Present: normal lung sounds bilaterally. Absent: respiratory distress, wheezes, rales, rhonchi, stridor Cardiovascular Exam: Present: regular rate, normal rhythm, normal heart sounds. Absent: systolic murmur, diastolic murmur, rubs, gallop, clicks GI/Abdominal exam: Present: soft, normal bowel sounds. Absent: distended, tenderness, guarding, rebound, rigid Extremities exam: Present: normal inspection, full ROM, normal capillary refill. Absent: tenderness, pedal edema, joint swelling, calf tenderness Back exam: Present: normal inspection Neurological exam: Present: alert, oriented X3, CN II-XII intact Psychiatric exam: Present: normal affect, normal mood Skin exam: Present: warm, dry, intact, normal color. Absent: rash <Jarvis Rasmussen Filed: 05/24/22 05:52> Course <Jarvis Rasmussen - Last Filed: 05/24/22 05:52> <ReginaldJuan Francisco - Last Filed: 05/24/22 10:14> Vital Signs 05/24/22 05:09 Temperature 98.4 F Pulse Rate 72 Respiratory 16 Rate Blood Pressure 120/76 O2 Sat by Pulse 94 L Oximetry - Reevaluation(s) Reevaluation #1: 05/24/22 05:53 Medical records reviewed (Jarvis Rasmussen) Reevaluation #2: 05/24/22 05:53 Patient no change in symptoms here in the ER (Jarvis Rasmussen) Reevaluation #3: 05/24/22 05:53 Patient informed results questions answered (Jarvis Rasmussen) Reevaluation #4: 05/24/22 05:53 Differential Weakness: Hypoglycemia, shock, sepsis, hyponatremia, anemia, infection, ND, ETOH, adverse medicine reaction, overdose, stroke, this is not meant to be an all-inclusive list. (Jarvis Rasmussen) Reevaluation #5: 05/24/22 05:53 Was pt. sent in by a medical professional or institution? @ -no Did you speak to anyone other than the patient for history? @ -family Did you review nursing and triage notes? @ -agree Were old charts reviewed? @ -no Differential Diagnosis? @ -prior EKG interpreted by me (3pts min.)? @ -[none] X-rays interpreted by me (1pt min.)? @ -[none] CT interpreted by me (1pt min.)? @ -[none] U/S interpreted by me (1pt. min.)? @ -[none] What testing was considered but not performed? (CT, X-rays, U/S, labs)? Why? @ no What meds were considered but not given? Why? @ -[none] Did you discuss the management of the patient with other professionals? @ -no Did you reconcile home meds? @ -[none] Was smoking cessation discussed for >3mins.? @ -[none] Was critical care preformed (if so, how long)? @ -[none] Were there social determinants of health that impacted care today? How? (Homelessness, low income, unemployed, alcoholism, drug addiction, trans portation, low edu. Level, literacy, decrease access to med. care, skilled nursing, rehab)? @ -no Was there de-escalation of care discussed even if they declined? (Discuss DNR or withdrawal of care, Hospice)? @ -no What co-morbidities impacted this encounter? (DM, HTN, Smoking, COPD, CAD, Cancer, CVA, Hep., AIDS, mental health diagnosis, sleep apnea, morbid obesity)? @ -no Was patient admitted / discharged? @ -dc Undiagnosed new problem with uncertain prognosis? @ -[none] Drug Therapy requiring intensive monitoring for toxicity (Heparin, Nitro, Insulin, Cardizem)? @ -[none] Were any procedures done? @ -[none] Diagnosis/symptom? @ -[default] Acute, or Chronic, or Acute on Chronic? @ -[default] Uncomplicated (without systemic symptoms) or Complicated (systemic symptoms)? @ -[default] Side effects of treatment? @ -[none] Exacerbation, Progression, or Severe Exacerbation] @ -[no] Poses a threat to life or bodily function? @ -[no] (Jarvis Rasmussen) EKG interpreted by myself shows sinus rhythm with a rate of 77. Normal axis. Normal QRS. No acute ST change. Artifact present. 05/24/22 08:20 (Juan Francisco Montelongo) Medical Decision Making - Lab Data Result diagrams: 05/24/22 05:40 <Jarvis Rasmussen - Last Filed: 05/24/22 05:52> - Lab Data Result diagrams: 05/24/22 05:40 05/24/22 05:40 <Juan Francisco Montelongo - Last Filed: 05/24/22 10:14> - Medical Decision Making Was pt. sent in by a medical professional or institution (, PA, COATING MIXER SUPERVISOR, urgent care, hospital, or fdc...) When possible be specific @ -No Did you speak to anyone other than the patient for history (EMS, parent, family, police, friend...)? What history was obtained from this source @ -No Did you review nursing and triage notes (agree or disagree)? Why? @ -I reviewed and agree with nursing and triage notes Were old charts reviewed (outside hosp., previous admission, EMS record, old EKG, old radiological studies, urgent care reports/EKG's, fdc records)? Report findings @ -No old charts were reviewed Differential Diagnosis (chest pain, altered mental status, abdominal pain women, abdominal pain men, vaginal bleeding, weakness, fever, dyspnea, syncope, headache, dizziness, GI bleed, back pain, seizure, CVA, palpatations, mental health)? @ -Differential Weakness: Hypoglycemia, shock, sepsis, hyponatremia, anemia, infection, ND, ETOH, adverse medicine reaction, overdose, stroke, this is not meant to be an all-inclusive list. EKG interpreted by me (3pts min.). @ -As above X-rays interpreted by me (1pt min.). @ -Chest x-ray and pelvis x-rays show no acute process CT interpreted by me (1pt min.). @ -Reports reviewed U/S interpreted by me (1pt. min.). @ -None done What testing was considered but not performed or refused? (CT, X-rays, U/S, labs)? Why? @ -None What meds were considered but not given or refused? Why? @ -None Did you discuss the management of the patient with other professionals (professionals i.e. , PA, COATING MIXER SUPERVISOR, lab, RT, psych nurse, healthcare social worker, solar field installation crew member, teacher, anti air warfare operations officer, window caser)? Give summary @ -No Was smoking cessation discussed for >3mins.? @ -No Was critical care preformed (if so, how long)? @ -No Were there social determinants of health that impacted care today? How? (Homelessness, low income, unemployed, alcoholism, drug addiction, transportation, low edu. Level, literacy, decrease access to med. care, skilled nursing, rehab)? @ -No Was there de-escalation of care discussed even if they declined (Discuss DNR or withdrawal of care, Hospice)? DNR status @ -No What co-morbidities impacted this encounter? (DM, HTN, Smoking, COPD, CAD, Cancer, CVA, ARF, Chemo, Hep., AIDS, mental health diagnosis, sleep apnea, morbid obesity)? @ -None Was patient admitted / discharged? Hospital course, mention meds given and route, prescriptions, significant lab abnormalities, going to OR and other pertinent info. @ -Patient reevaluated and resting comfortably in bed. Nursing staff did speak with family who is comfortable with discharge and son is coming to pick her up. Undiagnosed new problem with uncertain prognosis? @ -No Drug Therapy requiring intensive monitoring for toxicity (Heparin, Nitro, Insulin, Cardizem)? @ -No Were any procedures done? @ -No Diagnosis/symptom? @ -fall Acute, or Chronic, or Acute on Chronic? @ -Acute Uncomplicated (without systemic symptoms) or Complicated (systemic symptoms)? @ -default Side effects of treatment? @ -No Exacerbation, Progression, or Severe Exacerbation? @ -No Poses a threat to life or bodily function? How? (Chest pain, USA, ND, pneumonia, PE, COPD, DKA, ARF, appy, cholecystitis, CVA, Diverticulitis, Homicidal, Suicidal, threat to staff... and all critical care pts) @ -No (Juan Francisco Montelongo) - Lab Data Lab Results 05/24/22 05/24/22 05/24/22 Range/Units 05:40 05:40 05:40 WBC 4.8 (3.8-10.6) k/uL RBC 3.79 L (3.80-5.40) m/uL Hgb 11.2 L (11.4-16.0) gm/dL Hct 33.5 L (34.0-46.0) % MCV 88.2 (80.0-100.0) fL MCH 29.5 (25.0-35.0) pg MCHC 33.4 (31.0-37.0) g/dL RDW 13.7 (11.5-15.5) % Plt Count 217 (150-450) k/uL MPV 7.5 Neutrophils % 57 % Lymphocytes % 25 % Monocytes % 9 % Eosinophils % 6 % Basophils % 0 % Neutrophils # 2.7 (1.3-7.7) k/uL Lymphocytes # 1.2 (1.0-4.8) k/uL Monocytes # 0.4 (0-1.0) k/uL Eosinophils # 0.3 (0-0.7) k/uL Basophils # 0.0 (0-0.2) k/uL PT 10.6 (9.0-12.0) sec INR 1.0 (<1.2) APTT 24.5 (22.0-30.0) sec Sodium 137 (137-145) mmol/L Potassium 3.4 L (3.5-5.1) mmol/L Chloride 105 (98-107) mmol/L Carbon Dioxide 32 H (22-30) mmol/L Anion Gap 0 mmol/L BUN 14 (7-17) mg/dL Creatinine 0.63 (0.52-1.04) mg/dL Est GFR (CKD-EPI)AfAm >90 (>60 ml/min/1.73 sqM) Est GFR (CKD-EPI)NonAf 84 (>60 ml/min/1.73 sqM) Glucose 106 H (74-99) mg/dL Calcium 8.7 (8.4-10.2) mg/dL Phosphorus 4.0 (2.5-4.5) mg/dL Magnesium 2.0 (1.6-2.3) mg/dL Total Bilirubin 0.5 (0.2-1.3) mg/dL AST 17 (14-36) U/L ALT 11 (4-34) U/L Alkaline Phosphatase 62 (38-126) U/L Troponin I (0.000-0.034) ng/mL Total Protein 5.6 L (6.3-8.2) g/dL Albumin 3.4 L (3.5-5.0) g/dL Urine Color Urine Appearance (Clear) Urine pH (5.0-8.0) Ur Specific [place] (1.001-1.035) Urine Protein (Negative) Urine Glucose (UA) (Negative) Urine Ketones (Negative) Urine Blood (Negative) Urine Nitrite (Negative) Urine Bilirubin (Negative) Urine Urobilinogen (<2.0) mg/dL Ur Leukocyte Esterase (Negative) Urine RBC (0-5) /hpf Urine WBC (0-5) /hpf Ur Squamous Epith Cells (0-4) /hpf 05/24/22 05/24/22 Range/Units 05:40 09:00 WBC (3.8-10.6) k/uL RBC (3.80-5.40) m/uL Hgb (11.4-16.0) gm/dL Hct (34.0-46.0) % MCV (80.0-100.0) fL MCH (25.0-35.0) pg MCHC (31.0-37.0) g/dL RDW (11.5-15.5) % Plt Count (150-450) k/uL MPV Neutrophils % % Lymphocytes % % Monocytes % % Eosinophils % % Basophils % % Neutrophils # (1.3-7.7) k/uL Lymphocytes # (1.0-4.8) k/uL Monocytes # (0-1.0) k/uL Eosinophils # (0-0.7) k/uL Basophils # (0-0.2) k/uL PT (9.0-12.0) sec INR (<1.2) APTT (22.0-30.0) sec Sodium (137-145) mmol/L Potassium (3.5-5.1) mmol/L Chloride (98-107) mmol/L Carbon Dioxide (22-30) mmol/L Anion Gap mmol/L BUN (7-17) mg/dL Creatinine (0.52-1.04) mg/dL Est GFR (CKD-EPI)AfAm (>60 ml/min/1.73 sqM) Est GFR (CKD-EPI)NonAf (>60 ml/min/1.73 sqM) Glucose (74-99) mg/dL Calcium (8.4-10.2) mg/dL Phosphorus (2.5-4.5) mg/dL Magnesium (1.6-2.3) mg/dL Total Bilirubin (0.2-1.3) mg/dL AST (14-36) U/L ALT (4-34) U/L Alkaline Phosphatase (38-126) U/L Troponin I <0.012 (0.000-0.034) ng/mL Total Protein (6.3-8.2) g/dL Albumin (3.5-5.0) g/dL Urine Color Light Yellow Urine Appearance Clear (Clear) Urine pH 5.5 (5.0-8.0) Ur Specific [place] 1.009 (1.001-1.035) Urine Protein Negative (Negative) Urine Glucose (UA) Negative (Negative) Urine Ketones Negative (Negative) Urine Blood Trace H (Negative) Urine Nitrite Negative (Negative) Urine Bilirubin Negative (Negative) Urine Urobilinogen <2.0 (<2.0) mg/dL Ur Leukocyte Esterase Negative (Negative) Urine RBC 1 (0-5) /hpf Urine WBC 1 (0-5) /hpf Ur Squamous Epith Cells 2 (0-4) /hpf Disposition <Jarvis Rasmussen - Last Filed: 05/24/22 05:52> Is patient prescribed a controlled substance at d/c from ED?: No Time of Disposition: 10:14 <Juan Francisco Montelongo - Last Filed: 05/24/22 10:14> Clinical Impression: Fall Disposition: HOME SELF-CARE Instructions (If sedation given, give patient instructions): Fall Prevention (ED) Additional Instructions: Please do follow-up to primary care physician in the next day or 2 for recheck. Return for increased falls, weakness, worsening or changing symptoms or other concerns. Referrals: Pablo De La Garza DO [Primary Care Provider] - 1-2 days
[2022-05-24 05:49] LABS: Basophils % (A) 0 %; Eosinophils # (A) 0.3 k/uL (0-0.7); Eosinophils % (A) 6 %; HCT 33.5 % (34.0-46.0); HGB 11.2 gm/dL (11.4-16.0); Lymphocytes # (A) 1.2 k/uL (1.0-4.8); Lymphocytes % (A) 25 %; MCH 29.5 pg (25.0-35.0); MCHC 33.4 g/dL (31.0-37.0); MCV 88.2 fL (80.0-100.0); Mean Platelet Volume 7.5; Monocytes # (A) 0.4 k/uL (0-1.0); Monocytes % (A) 9 %; Neutrophils # (A) 2.7 k/uL (1.3-7.7); Neutrophils % (A) 57 %; Platelet Count 217 k/uL (150-450); RBC 3.79 m/uL (3.80-5.40); RDW 13.7 % (11.5-15.5); WBC 4.8 k/uL (3.8-10.6)
[2022-05-24 06:00] LABS: ALT 11 U/L (4-34); AST 17 U/L (14-36); African American GFR (CKD) >90 (>60 ml/min/1.73 sqM); Albumin 3.4 g/dL (3.5-5.0); Alkaline Phosphatase 62 U/L (38-126); Anion Gap 0 mmol/L; Blood Urea Nitrogen 14 mg/dL (7-17); Calcium 8.7 mg/dL (8.4-10.2); Carbon Dioxide 32 mmol/L (22-30); Chloride 105 mmol/L (98-107); Glucose 106 mg/dL (74-99); Non-African American GFR(CKD) 84 (>60 ml/min/1.73 sqM); Potassium 3.4 mmol/L (3.5-5.1); Sodium 137 mmol/L (137-145); Total Bilirubin 0.5 mg/dL (0.2-1.3); Total Protein 5.6 g/dL (6.3-8.2)
[2022-05-24 06:03] LABS: Partial Thromboplastin Time 24.5 sec (22.0-30.0); Prothrombin Time 10.6 sec (9.0-12.0)
[2022-05-24] MEDS ORDERED: POTASSIUM BICARBONATE/CIT AC 20 MEQ TABLET.EFF PO ONE (06:10)
--- NOTE | 2022-05-24 06:29 | XR ---
EXAMINATION TYPE: XR chest 1V DATE OF EXAM: 05/24/2022 COMPARISON: Chest x-ray March 28, 2022 HISTORY: Fall injury with chest pain TECHNIQUE: Single AP portable frontal upright view of the chest is obtained. FINDINGS: There is some chronic parenchymal changes bilaterally without suspicious focal air space o pacity, pleural effusion, or pneumothorax seen. The cardiac silhouette size is mildly enlarged. Th e osseous structures are intact. IMPRESSION: Chronic changes and mild cardiomegaly without acute pulmonary process. No significant ch bharat from prior.
--- NOTE | 2022-05-24 06:33 | XR ---
EXAMINATION TYPE: XR pelvis AP view DATE OF EXAM: 05/24/2022 CLINICAL HISTORY: Fall injury with pain TECHNIQUE: A single AP view of the pelvis is obtained. COMPARISON: Pelvic x-ray 2019. FINDINGS: There is no acute displaced fracture evident in the pelvis. The hip and sacroiliac joints remain symmetric and within normal limits. Pubic symphysis is intact. The overlying soft tissue appe ars unremarkable. IMPRESSION: There is no acute displaced fracture in the pelvis.
--- NOTE | 2022-05-24 08:49 | CT ---
EXAMINATION TYPE: CT brain cspine wo con CT DLP: 1258.7 mGycm, Automated exposure control for dose reduction was used. DATE OF EXAM: 05/24/2022 8:42 AM COMPARISON: CT brain 10/24/2018. CLINICAL INDICATION:Female, 81 years old with history of fall; TECHNIQUE: Brain: Multiple axial CT images of the brain were obtained without IV contrast. Cspine: Axial CT images from the skull base to the inferior aspect of T2 we obtained without intraven ous contrast. Coronal and sagittal reformatted images were also reviewed. FINDINGS: Brain: Extra-axial spaces: No abnormal extra-axial fluid collections. Ventricular system: Dilatation in proportion to cerebral atrophy. Cerebral parenchyma: Cerebral atrophy. No acute intraparenchymal hemorrhage or mass effect. The velazquez -white junction is well differentiated. Scattered hypoattenuating areas are seen within the white mat ter. Cerebellum: Unremarkable. Mass effect: No evidence of midline shift. Intracranial vasculature: unremarkable Soft tissues: Normal. Calvarium/osseous structures: No depressed skull fracture. Paranasal sinuses and mastoid air cells: Clear. Visualized orbits: Bilateral aphakia Cervical spine: Fracture: None. Osseous structures: Multilevel degenerative disc disease changes with endplate spurring and anterior osteophytosis. Vertebral alignment: Within normal limits. Spinal canal/Neural Foramina: No evidence of significant spinal canal narrowing. No evidence for sign ificant neural foraminal stenosis. Neck soft tissues: Prevertebral soft tissues are within normal limits. Other: The airway is patent. Biapical pleural parenchymal scarring. IMPRESSION: 1. No acute intracranial process. 2. Nonspecific white matter changes, likely secondary to chronic small vessel ischemic disease. 3. No evidence of cervical spine fracture. 4. Mild multilevel degenerative disc disease.
[2022-05-24 09:18] LABS: Appearance,Urine Clear (Clear); Bilirubin,Urine Negative (Negative); Blood,Urine Trace (Negative); Color,Urine Light Yellow; Glucose,Urine (UA) Negative (Negative); Ketones,Urine Negative (Negative); Leukocyte Esterase,Urine Negative (Negative); Nitrite,Urine Negative (Negative); PH, Urine 5.5 (5.0-8.0); Protein,Urine Negative (Negative); RBC,Urine 1 /hpf (0-5); Specific Gravity,Urine 1.009 (1.001-1.035); Squamous Epithelial Cell,Urine 2 /hpf (0-4); Urobilinogen,Urine <2.0 mg/dL (<2.0); WBC,Urine 1 /hpf (0-5)
[2022-05-24 14:54] VITALS: BP 118/79; PULSE 85; RESP 15
== END 2022-05-24 14:54 | disposition home or self-care (01) ==
LOC: EC 05:06
DX: Z04.3 Encounter for examination and observation following other accident (principal); I48.20 Chronic atrial fibrillation, unspecified; J44.9 Chronic obstructive pulmonary disease, unspecified; I51.7 Cardiomegaly; K21.9 Gastro-esophageal reflux disease without esophagitis; F41.9 Anxiety disorder, unspecified; F32.A Depression, unspecified; F17.200 Nicotine dependence, unspecified, uncomplicated; Z86.73 Personal history of transient ischemic attack (TIA), and cerebral infarction without residual deficits; Z79.82 Long term (current) use of aspirin; Z79.899 Other long term (current) drug therapy; Z79.51 Long term (current) use of inhaled steroids; Z91.041 Radiographic dye allergy status; Z88.2 Allergy status to sulfonamides; Z88.8 Allergy status to other drugs, medicaments and biological substances; Z88.1 Allergy status to other antibiotic agents; W01.0XXA Fall on same level from slipping, tripping and stumbling without subsequent striking against object, initial encounter; Y92.009 Unspecified place in unspecified non-institutional (private) residence as the place of occurrence of the external cause
CPT/HCPCS: 36415; 70450; 71045; 72125; 72170; 80053; 81001; 83735; 84100; 84484; 85025; 85610; 85730; 93005; 96360; 96361; 99285

== ENCOUNTER 2022-07-27 05:28 | Emergency (ER) | payer MEDICARE ==
[2022-07-27 05:36] VITALS: TEMP 97.5
[2022-07-27] MEDS: DEXAMETHASONE SOD PHOSPHATE 10 MG/ML 1 ML VIAL IVP STA (05:43)
--- NOTE | 2022-07-27 06:04 | ED ---
General Adult HPI - General Source: EMS Mode of arrival: EMS Limitations: no limitations <Mark Strickland - Last Filed: 07/27/22 07:08> <Luzma Manuel - Last Filed: 07/27/22 08:16> - General Chief complaint: Shortness of Breath Stated complaint: SOB Time Seen by Provider: 07/27/22 05:29 - History of Present Illness Initial comments: This is an 81-year-old female with a past medical history including COPD, emphysema and asthma presents emergency department via EMS for shortness of breath. The patient stated that she woke up throughout the night with shortness of breath and used her nebulizer without any relief. The patient did use her inhaler as well and stated that she continued shortest breath. The patient is an overall poor historian and cannot provide any information to the medications that she takes nor her past medical history. The patient could not answer as to what triggers her COPD and asthma. The patient was resting in bed comfortably without any tachypnea but stated she continued shortest breath. The patient denied nausea, vomiting as well as any fevers and chills. (Mark Strickland) - Related Data Home Medications Medication Instructions Recorded Confirmed Omeprazole 40 mg PO DAILY 08/24/17 07/27/22 ALPRAZolam [Xanax] 0.5 mg PO BID PRN 05/21/21 07/27/22 FLUoxetine HCL [PROzac] 40 mg PO DAILY 05/21/21 07/27/22 Acetaminophen Tab [Tylenol] 500 mg PO Q6HR PRN 10/30/21 07/27/22 busPIRone HCl [Buspar] 5 mg PO BID 10/30/21 07/27/22 Propranolol [Inderal] 40 mg PO BID 03/15/22 07/27/22 traMADol HCL 50 mg PO BID PRN 06/29/22 07/27/22 Albuterol Nebulized [Ventolin 2.5 mg INHALATION RT-QID 07/27/22 07/27/22 Nebulized] Aspirin 81 mg PO DAILY 07/27/22 07/27/22 Cetirizine HCl [Zyrtec] 10 mg PO DAILY 07/27/22 07/27/22 Cholecalciferol [Vitamin D3 (25 25 mcg PO DAILY 07/27/22 07/27/22 Mcg = 1000 Iu)] Diclofenac Sodium Gel [Voltaren 2 gm TOPICAL QID PRN 07/27/22 07/27/22 Gel] Previous Rx's Medication Instructions Recorded Albuterol Inhaler [Ventolin Hfa 2 puff INHALATION RT-Q4H PRN #1 07/01/22 Inhaler] each Formoterol Fumarate [Perforomist] 20 mcg INHALATION RT-BID 30 Days 07/01/22 #1 each Tiotropium 2.5 Mcg/Puff [Spiriva 2 puff INHALATION RT-DAILY 30 Days 07/01/22 Respimat 2.5 Mcg] #1 each Allergies Allergy/AdvReac Type Severity Reaction Status Date / Time budesonide [From Symbicort] Allergy Unknown Verified 07/27/22 07:15 formoterol [From Symbicort] Allergy Unknown Verified 07/27/22 07:15 gabapentin Allergy Unknown Verified 07/27/22 07:15 ibuprofen Allergy Unknown Verified 07/27/22 07:15 Iodinated Contrast Media Allergy Unknown Verified 07/27/22 07:15 [Iodinated Contrast- Oral and IV Dye] iodine Allergy Rash/Hives Verified 07/27/22 07:15 Sulfa (Sulfonamide Allergy Rash/Hives Verified 07/27/22 07:15 Antibiotics) topiramate [From Topamax] Allergy Unknown Verified 07/27/22 07:15 lorazepam [From Ativan] AdvReac Hallucinati Verified 07/27/22 07:15 ons prednisone AdvReac dizziness Verified 07/27/22 07:15 zolpidem tartrate AdvReac Hallucinati Verified 07/27/22 07:15 [From Ambien] ons Review of Systems ROS Other: All systems not noted in ROS Statement are negative. <Mark Strickland - Last Filed: 07/27/22 07:08> ROS Other: All systems not noted in ROS Statement are negative. <Luzma Manuel - Last Filed: 07/27/22 08:16> ROS Statement: Those systems with pertinent positive or pertinent negative responses have been documented in the HPI. Past Medical History Past Medical History: Atrial Fibrillation, Asthma, COPD, CVA/TIA, Eye Disorder, GERD/Reflux, Hyperlipidemia, Pneumonia Additional Past Medical History / Comment(s): Chronic atrial fibrillation per PMH but pt has no recollection of this, bronchiectasis, essential tremors, previous TIA, chronic lumbar back pain, past 6 months R shoulder/cervical pain, balance difficulty with falls, occasional low urinary output and uses lasix prn for this, bilateral varicose veins, dysphagia-able to take pills one at a time with water, small hiatal hernia, restless leg syndrome, seasonal ALLERGIES, History of Any Multi-Drug Resistant Organisms: None Reported Past Surgical History: Hysterectomy Additional Past Surgical History / Comment(s): 11/27/15 EGD with bx, bilateral cataracts removed with lens implants, colonoscopy with 1 benign polypectomy. Past Anesthesia/Blood Transfusion Reactions: No Reported Reaction Past Psychological History: Anxiety, Depression Smoking Status: Current some day smoker Past Alcohol Use History: None Reported Past Drug Use History: None Reported - Past Family History Father Family Medical History: Cancer Additional Family Medical History / Comment(s): Pt thinks father might have from stomach cancer. She was 2 yrs old when he . Sister(s) Family Medical History: Cancer Additional Family Medical History / Comment(s): Half sister with brain cancer. Mother Family Medical History: Dementia Additional Family Medical History / Comment(s): Mother had gallstones and a partial thyroidectomy for noncancerous reasons. <Mark Strickland - Last Filed: 07/27/22 07:08> General Exam Limitations: no limitations General appearance: alert, in no apparent distress Head exam: Present: atraumatic, normocephalic, normal inspection Eye exam: Present: normal appearance, PERRL Pupils: Present: normal accommodation ENT exam: Present: normal exam, normal oropharynx, mucous membranes moist Neck exam: Present: normal inspection, full ROM Respiratory exam: Present: wheezes, decreased breath sounds Cardiovascular Exam: Present: regular rate, normal rhythm, normal heart sounds GI/Abdominal exam: Present: soft, normal bowel sounds Extremities exam: Present: normal inspection, full ROM Back exam: Present: normal inspection, full ROM Neurological exam: Present: alert, oriented X3, CN II-XII intact Psychiatric exam: Present: normal affect, normal mood Skin exam: Present: warm, dry <Mark Strickland - Last Filed: 07/27/22 07:08> Course Vital Signs 07/27/22 07/27/22 07/27/22 05:30 05:34 06:16 Temperature 97.5 F L Pulse Rate 61 58 L Respiratory 20 Rate Blood Pressure 104/68 O2 Sat by Pulse 97 94 L Oximetry 07/27/22 07/27/22 06:37 07:14 Temperature Pulse Rate 57 L 63 Respiratory 16 Rate Blood Pressure 115/58 O2 Sat by Pulse 97 Oximetry Medical Decision Making <Mark Strickland - Last Filed: 07/27/22 07:08> - Medical Decision Making Was pt. sent in by a medical professional or institution ([facility], CAMPUS SAFETY OFFICER, urgent care, hospital, or penitentiary...) When possible be specific @ -No Did you speak to anyone other than the patient for history (EMS, parent, family, police, friend...)? What history was obtained from this source @ -Yes, EMS Did you review nursing and triage notes (agree or disagree)? Why? @ -I reviewed and agree with nursing and triage notes Were old charts reviewed (outside hosp., previous admission, EMS record, old EKG, old radiological studies, urgent care reports/EKG's, penitentiary records)? Report findings @ -No old charts were reviewed Differential Diagnosis (chest pain, altered mental status, abdominal pain women, abdominal pain men, vaginal bleeding, weakness, fever, dyspnea, syncope, headache, dizziness, GI bleed, back pain, seizure, CVA, palpatations, mental he alth)? @ -COPD exacerbation, pneumonia, pneumothorax EKG interpreted by me (3pts min.). @ -None X-rays interpreted by me (1pt min.). @ -Chest x-ray was obtained and was interpreted by myself showing chronic changes without any acute pathology. CT interpreted by me (1pt min.). @ -None done U/S interpreted by me (1pt. min.). @ -None done What testing was considered but not performed or refused? (CT, X-rays, U/S, labs)? Why? @ -None What meds were considered but not given or refused? Why? @ -None Did you discuss the management of the patient with other professionals (professionals i.e. [facility], CAMPUS SAFETY OFFICER, lab, RT, psych nurse, psychotherapist social worker, medium cycle salesperson, teacher, patrol community service officer, casework specialist)? Give summary @ -No Was smoking cessation discussed for >3mins.? @ -Yes Was critical care preformed (if so, how long)? @ -No Were there social determinants of health that impacted care today? How? (Homelessness, low income, unemployed, alcoholism, drug addiction, transportation, low edu. Level, literacy, decrease access to med. care, correction, rehab)? @ -No Was there de-escalation of care discussed even if they declined (Discuss DNR or withdrawal of care, Hospice)? DNR status @ -No What co-morbidities impacted this encounter? (DM, HTN, Smoking, COPD, CAD, Cancer, CVA, ARF, Chemo, Hep., AIDS, mental health diagnosis, sleep apnea, morbid obesity)? @ -COPD, emphysema, asthma Was patient admitted / discharged? Hospital course, mention meds given and route, prescriptions, significant lab abnormalities, going to OR and other pertinent info. @ -The patient was seen and evaluated in the emergency department. Physical exam, the patient was resting in bed without any acute distress. Vital signs admission were stable. Due to the patient's auscultation findings, the patient did receive a breathing treatment including albuterol and ipratropium as well as Decadron. A chest x-ray was also obtained at this time. After the initial breathing treatment was given, the patient did have improvement of her symptoms. Chest x-ray was still pending at this time. Due to the patient's extreme of age in the setting of a COPD exacerbation, the patient will continue to be monitored and observed pending needing a second breathing treatment and possible admission. The patient will be signed out to Dr. Manuel pending reevaluation. Undiagnosed new problem with uncertain prognosis? @ -No Drug Therapy requiring intensive monitoring for toxicity (Heparin, Nitro, Insulin, Cardizem)? @ -No Were any procedures done? @ -No Diagnosis/symptom? @ -COPD exacerbation Acute, or Chronic, or Acute on Chronic? @ -Acute Uncomplicated (without systemic symptoms) or Complicated (systemic symptoms)? @ -Uncomplicated Side effects of treatment? @ -No Exacerbation, Progression, or Severe Exacerbation? @ -Exacerbation Poses a threat to life or bodily function? How? (Chest pain, [place], [place], pneumonia, PE, COPD, DKA, ARF, appy, cholecystitis, CVA, Diverticulitis, Homicidal, Suicidal, threat to staff... and all critical care pts) @ -No (Mark Strickland) Disposition <Mark Strickland - Last Filed: 07/27/22 07:08> Is patient prescribed a controlled substance at d/c from ED?: No Time of Disposition: 07:51 <Luzma Manuel - Last Filed: 07/27/22 08:16> Clinical Impression: COPD exacerbation Disposition: HOME SELF-CARE Condition: Stable Instructions (If sedation given, give patient instructions): COPD (Chronic Obstructive Pulmonary Disease) (ED) Referrals: Pablo eD La Garza DO [Primary Care Provider] - 1-2 days
[2022-07-27] MEDS: ALBUTEROL NEB (CONC) 2.5 MG/0.5 ML INHALATION STA (06:13)
[2022-07-27] MEDS: IPRATROPIUM 0.5 MG/2.5 ML NEBU INHALATION STA (06:14)
--- NOTE | 2022-07-27 07:00 | XR ---
EXAMINATION TYPE: XR chest 2V DATE OF EXAM: 07/27/2022 COMPARISON: Chest x-ray June 29, 2022 HISTORY: Shortness of breath TECHNIQUE: Frontal and lateral views of the chest are obtained. FINDINGS: Background chronic emphysematous changes redemonstrated. Patient remains rotated to right o f midline. There is no suspicious new focal air space opacity, pleural effusion, or pneumothorax seen . The cardiac silhouette size is stable and mildly enlarged. The osseous structures remain deminer alized. 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 IMPRESSION: Chronic changes and mild cardiomegaly without acute pulmonary process.
[2022-07-27 07:15] VITALS: BP 115/58; PULSE 63; RESP 16
== END 2022-07-27 08:52 | disposition home or self-care (01) ==
LOC: EC 05:28
DX: J44.1 Chronic obstructive pulmonary disease with (acute) exacerbation (principal); K21.9 Gastro-esophageal reflux disease without esophagitis; E78.5 Hyperlipidemia, unspecified; I48.20 Chronic atrial fibrillation, unspecified; F17.200 Nicotine dependence, unspecified, uncomplicated; Z79.82 Long term (current) use of aspirin; Z79.899 Other long term (current) drug therapy; Z88.1 Allergy status to other antibiotic agents; Z88.2 Allergy status to sulfonamides; Z88.8 Allergy status to other drugs, medicaments and biological substances
CPT/HCPCS: 99284; 94640; 71046; 96374; J1100

== ENCOUNTER 2022-08-03 19:35 | Emergency (ER) | payer MEDICARE ==
[2022-08-03 19:49] VITALS: TEMP 97.1
[2022-08-03] MEDS ORDERED: methylPREDNISolone SOD SUCCI 125 MG/2 ML VIAL IV STA (20:05)
[2022-08-03] MEDS ORDERED: IPRATROPIUM-ALBUTEROL 3 ML NEB INHALATION STA ×2 (20:05→21:44)
[2022-08-03 20:54] LABS: Basophils % (A) 0 %; Eosinophils # (A) 0.7 k/uL (0-0.7); Eosinophils % (A) 9 %; HCT 37.3 % (34.0-46.0); HGB 12.5 gm/dL (11.4-16.0); Lymphocytes # (A) 2.4 k/uL (1.0-4.8); Lymphocytes % (A) 30 %; MCH 29.8 pg (25.0-35.0); MCHC 33.5 g/dL (31.0-37.0); MCV 88.9 fL (80.0-100.0); Mean Platelet Volume 7.1; Monocytes # (A) 0.5 k/uL (0-1.0); Monocytes % (A) 7 %; Neutrophils % (A) 51 %; Platelet Count 240 k/uL (150-450); RDW 13.7 % (11.5-15.5)
[2022-08-03 21:07] LABS: ALT 15 U/L (4-34); AST 20 U/L (14-36); African American GFR (CKD) >90 (>60 ml/min/1.73 sqM); Albumin 3.3 g/dL (3.5-5.0); Alkaline Phosphatase 55 U/L (38-126); Anion Gap 4 mmol/L; Blood Urea Nitrogen 18 mg/dL (7-17); Calcium 9.1 mg/dL (8.4-10.2); Carbon Dioxide 32 mmol/L (22-30); Chloride 98 mmol/L (98-107); Glucose 107 mg/dL (74-99); Non-African American GFR(CKD) 80 (>60 ml/min/1.73 sqM); Sodium 134 mmol/L (137-145); Total Bilirubin 0.4 mg/dL (0.2-1.3); Total Protein 5.5 g/dL (6.3-8.2)
--- NOTE | 2022-08-03 21:13 | XR ---
EXAMINATION TYPE: XR chest 2V DATE OF EXAM: 08/03/2022 COMPARISON: 07/27/2022 TECHNIQUE: PA and lateral views submitted. HISTORY: Difficulty breathing FINDINGS: The lungs are clear and there is no pneumothorax, pleural effusion, or focal pneumonia. Heart size normal and no overt failure. Osseous structures demonstrate hypertrophic and degenerative changes of the spine. Hyperinflation. Mild superior endplate compression deformity lower thoracic spine appears chronic. IMPRESSION: 1. No acute process. Correlate for COPD.
[2022-08-03 21:17] LABS: INR 0.9 (<1.2); Partial Thromboplastin Time 23.7 sec (22.0-30.0); Prothrombin Time 9.9 sec (9.0-12.0)
--- NOTE | 2022-08-03 21:24 | ED ---
General Adult HPI - General Chief complaint: Shortness of Breath Stated complaint: dyspnea Time Seen by Provider: 08/03/22 19:52 Source: patient, EMS Mode of arrival: EMS Limitations: no limitations - History of Present Illness Initial comments: Patient is an 81-year-old female with history of COPD presenting with chief complaint of shortness of breath. Patient states that symptoms started about 3 hours prior to arrival. Patient states that she did take her Xanax prior to coming, by time of arrival she reports some improvement in her symptoms. No chest pain. No palpitations. No cough, congestion, sore throat, fever, chills. Patient wears oxygen at home, normally around 3-4 L, when she was feeling short of breath she turned it up to 5 L. No abdominal pain, nausea, vomiting, headache, numbness, tingling. - Related Data Home Medications Medication Instructions Recorded Confirmed Omeprazole 40 mg PO DAILY 08/24/17 07/27/22 ALPRAZolam [Xanax] 0.5 mg PO BID PRN 05/21/21 07/27/22 FLUoxetine HCL [PROzac] 40 mg PO DAILY 05/21/21 07/27/22 Acetaminophen Tab [Tylenol] 500 mg PO Q6HR PRN 10/30/21 07/27/22 busPIRone HCl [Buspar] 5 mg PO BID 10/30/21 07/27/22 Propranolol [Inderal] 40 mg PO BID 03/15/22 07/27/22 traMADol HCL 50 mg PO BID PRN 06/29/22 07/27/22 Albuterol Nebulized [Ventolin 2.5 mg INHALATION RT-QID 07/27/22 07/27/22 Nebulized] Aspirin 81 mg PO DAILY 07/27/22 07/27/22 Cetirizine HCl [Zyrtec] 10 mg PO DAILY 07/27/22 07/27/22 Cholecalciferol [Vitamin D3 (25 25 mcg PO DAILY 07/27/22 07/27/22 Mcg = 1000 Iu)] Diclofenac Sodium Gel [Voltaren 2 gm TOPICAL QID PRN 07/27/22 07/27/22 Gel] Previous Rx's Medication Instructions Recorded Albuterol Inhaler [Ventolin Hfa 2 puff INHALATION RT-Q4H PRN #1 07/01/22 Inhaler] each Formoterol Fumarate [Perforomist] 20 mcg INHALATION RT-BID 30 Days 07/01/22 #1 each Tiotropium 2.5 Mcg/Puff [Spiriva 2 puff INHALATION RT-DAILY 30 Days 07/01/22 Respimat 2.5 Mcg] #1 each Azithromycin [Zithromax Z Pack] 1 tab PO DIRECTED #6 tab 08/03/22 predniSONE [Deltasone] 60 mg PO DAILY 5 Days #15 tab 08/03/22 Allergies Allergy/AdvReac Type Severity Reaction Status Date / Time budesonide [From Symbicort] Allergy Unknown Verified 07/27/22 07:15 formoterol [From Symbicort] Allergy Unknown Verified 07/27/22 07:15 gabapentin Allergy Unknown Verified 07/27/22 07:15 ibuprofen Allergy Unknown Verified 07/27/22 07:15 Iodinated Contrast Media Allergy Unknown Verified 07/27/22 07:15 [Iodinated Contrast- Oral and IV Dye] iodine Allergy Rash/Hives Verified 07/27/22 07:15 Sulfa (Sulfonamide Allergy Rash/Hives Verified 07/27/22 07:15 Antibiotics) topiramate [From Topamax] Allergy Unknown Verified 07/27/22 07:15 lorazepam [From Ativan] AdvReac Hallucinati Verified 07/27/22 07:15 ons prednisone AdvReac dizziness Verified 07/27/22 07:15 zolpidem tartrate AdvReac Hallucinati Verified 07/27/22 07:15 [From Ambien] ons Review of Systems ROS Statement: Those systems with pertinent positive or pertinent negative responses have been documented in the HPI. ROS Other: All systems not noted in ROS Statement are negative. Past Medical History Past Medical History: Atrial Fibrillation, Asthma, COPD, CVA/TIA, Eye Disorder, GERD/Reflux, Hyperlipidemia, Pneumonia Additional Past Medical History / Comment(s): Chronic atrial fibrillation per PMH but pt has no recollection of this, bronchiectasis, essential tremors, previous TIA, chronic lumbar back pain, past 6 months R shoulder/cervical pain, balance difficulty with falls, occasional low urinary output and uses lasix prn for this, bilateral varicose veins, dysphagia-able to take pills one at a time with water, small hiatal hernia, restless leg syndrome, seasonal ALLERGIES, History of Any Multi-Drug Resistant Organisms: None Reported Past Surgical History: Hysterectomy Additional Past Surgical History / Comment(s): 11/27/15 EGD with bx, bilateral cataracts removed with lens implants, colonoscopy with 1 benign polypectomy. Past Anesthesia/Blood Transfusion Reactions: No Reported Reaction Past Psychological History: Anxiety, Depression Smoking Status: Current some day smoker Past Alcohol Use History: None Reported Past Drug Use History: None Reported - Past Family History Father Family Medical History: Cancer Additional Family Medical History / Comment(s): Pt thinks father might have from stomach cancer. She was 2 yrs old when he . Sister(s) Family Medical History: Cancer Additional Family Medical History / Comment(s): Half sister with brain cancer. Mother Family Medical History: Dementia Additional Family Medical History / Comment(s): Mother had gallstones and a partial thyroidectomy for noncancerous reasons. General Exam Limitations: no limitations General appearance: alert, in no apparent distress Head exam: Present: atraumatic, normocephalic, normal inspection Eye exam: Present: normal appearance Neck exam: Present: normal inspection, full ROM Respiratory exam: Present: wheezes. Absent: respiratory distress, rales, rhonchi, stridor Cardiovascular Exam: Present: regular rate, normal rhythm, normal heart sounds. Absent: systolic murmur, diastolic murmur, rubs, gallop, clicks Neurological exam: Present: alert, oriented X3, CN II-XII intact Psychiatric exam: Present: normal affect, normal mood Skin exam: Present: warm, dry, intact, normal color. Absent: rash Course Vital Signs 08/03/22 08/03/22 08/03/22 19:35 20:48 21:02 Temperature 97.1 F L Pulse Rate 55 L 56 L 53 L Respiratory 20 Rate Blood Pressure 113/56 O2 Sat by Pulse 98 Oximetry 08/03/22 08/03/22 08/03/22 22:27 22:41 23:20 Temperature Pulse Rate 55 L 58 L 51 L Respiratory 19 Rate Blood Pressure 122/57 O2 Sat by Pulse 98 Oximetry EKG Findings - EKG Comments: EKG Findings:: Sinus bradycardia with occasional supraventricular premature complexes ventricular rate 55. DC interval 148. QRS 80. QT 471. QTC 460. Medical Decision Making - Medical Decision Making Was pt. sent in by a medical professional or institution (, PA, WOOD HEEL CEMENTER, urgent care, hospital, or fci...) When possible be specific @ -No Did you speak to anyone other than the patient for history (EMS, parent, family, police, friend...)? What history was obtained from this source @ -No Did you review nursing and triage notes (agree or disagree)? Why? @ -I reviewed and agree with nursing and triage notes Were old charts reviewed (outside hosp., previous admission, EMS record, old EKG, old radiological studies, urgent care reports/EKG's, fci records)? Report findings @ -No old charts were reviewed Differential Diagnosis (chest pain, altered mental status, abdominal pain women, abdominal pain men, vaginal bleeding, weakness, fever, dyspnea, syncope, headache, dizziness, GI bleed, back pain, seizure, CVA, palpatations, mental health, musculoskeletal)? @ -MDM Differential Dyspnea: Coronary syndrome, arrhythmia, tamponade, asthma, COPD, pulmonary embolism, pneumonia, pneumothorax, pulmonary effusion, anaphylaxis, diabetic ketoacidosis, flailed chest, pulmonary contusion, diaphragmatic rupture, anemia, neuromuscular this is not meant to be an all-inclusive list. EKG interpreted by me (3pts min.). @ -As above X-rays interpreted by me (1pt min.). @ -Chest x-ray shows no acute process CT interpreted by me (1pt min.). @ -None done U/S interpreted by me (1pt. min.). @ -None done What testing was considered but not performed or refused? (CT, X-rays, U/S, labs)? Why? @ -None What meds were considered but not given or refused? Why? @ -None Did you discuss the management of the patient with other professionals (professionals i.e. , PA, WOOD HEEL CEMENTER, lab, RT, psych nurse, director social, opinion polls survey worker, teacher, operations officer afloat, family service caseworker)? Give summary @ -No Was smoking cessation discussed for >3mins.? @ -No Was critical care preformed (if so, how long)? @ -No Were there social determinants of health that impacted care today? How? (Homelessness, low income, unemployed, alcoholism, drug addiction, transportation, low edu. Level, literacy, decrease access to med. care, senior care, r ehab)? @ -No Was there de-escalation of care discussed even if they declined (Discuss DNR or withdrawal of care, Hospice)? DNR status @ -No What co-morbidities impacted this encounter? (DM, HTN, Smoking, COPD, CAD, Cancer, CVA, ARF, Chemo, Hep., AIDS, mental health diagnosis, sleep apnea, morbid obesity)? @ -COPD Was patient admitted / discharged? Hospital course, mention meds given and route, prescriptions, significant lab abnormalities, going to OR and other pertinent info. @ -Patient is an 81-year-old female with history of COPD presenting with chief complaint of shortness of breath. On physical examination diffuse wheezes are heard on auscultation. No chest pain. Lab work shows no leukocytosis or anemia. Troponin is negative. EKG shows no ischemic changes. Chest x-ray shows no acute process. After Solu-Medrol 125 and 2 DuoNeb breathing treatments patient reports that she is feeling significantly better. She would like to be discharged home. Discharge with prednisone and Zithromax Z-Ge. Follow-up with PCP. Report back to ER with any new or worsening symptoms. Discussed return parameters and answered all questions. Patient conveyed verbal understanding and agreed to the plan. I discussed this case in detail with my attending Dr. Riggs Undiagnosed new problem with uncertain prognosis? @ -No Drug Therapy requiring intensive monitoring for toxicity (Heparin, Nitro, Insulin, Cardizem)? @ -No Were any procedures done? @ -No Diagnosis/symptom? @ -COPD exacerbation Acute, or Chronic, or Acute on Chronic? @ -Acute Uncomplicated (without systemic symptoms) or Complicated (systemic symptoms)? @ -Uncomplicated Side effects of treatment? @ -No Exacerbation, Progression, or Severe Exacerbation? @ -Exacerbation Poses a threat to life or bodily function? How? (Chest pain, [place], MT, pneumonia, PE, COPD, DKA, ARF, appy, cholecystitis, CVA, Diverticulitis, Homicidal, Suicidal, threat to staff... and all critical care pts) @ -No - Lab Data Result diagrams: 08/03/22 20:35 08/03/22 20:35 Lab Results 08/03/22 08/03/22 08/03/22 Range/Units 20:35 20:35 20:35 WBC 8.0 (3.8-10.6) k/uL RBC 4.20 (3.80-5.40) m/uL Hgb 12.5 (11.4-16.0) gm/dL Hct 37.3 (34.0-46.0) % MCV 88.9 (80.0-100.0) fL MCH 29.8 (25.0-35.0) pg MCHC 33.5 (31.0-37.0) g/dL RDW 13.7 (11.5-15.5) % Plt Count 240 (150-450) k/uL MPV 7.1 Neutrophils % 51 % Lymphocytes % 30 % Monocytes % 7 % Eosinophils % 9 % Basophils % 0 % Neutrophils # 4.0 (1.3-7.7) k/uL Lymphocytes # 2.4 (1.0-4.8) k/uL Monocytes # 0.5 (0-1.0) k/uL Eosinophils # 0.7 (0-0.7) k/uL Basophils # 0.0 (0-0.2) k/uL PT 9.9 (9.0-12.0) sec INR 0.9 (<1.2) APTT 23.7 (22.0-30.0) sec Sodium 134 L (137-145) mmol/L Potassium 4.0 (3.5-5.1) mmol/L Chloride 98 (98-107) mmol/L Carbon Dioxide 32 H (22-30) mmol/L Anion Gap 4 mmol/L BUN 18 H (7-17) mg/dL Creatinine 0.72 (0.52-1.04) mg/dL Est GFR (CKD-EPI)AfAm >90 (>60 ml/min/1.73 sqM) Est GFR (CKD-EPI)NonAf 80 (>60 ml/min/1.73 sqM) Glucose 107 H (74-99) mg/dL Plasma Lactic Acid Osmel (0.7-2.0) mmol/L Calcium 9.1 (8.4-10.2) mg/dL Total Bilirubin 0.4 (0.2-1.3) mg/dL AST 20 (14-36) U/L ALT 15 (4-34) U/L Alkaline Phosphatase 55 (38-126) U/L Troponin I (0.000-0.034) ng/mL Total Protein 5.5 L (6.3-8.2) g/dL Albumin 3.3 L (3.5-5.0) g/dL 08/03/22 08/03/22 Range/Units 20:35 20:35 WBC (3.8-10.6) k/uL RBC (3.80-5.40) m/uL Hgb (11.4-16.0) gm/dL Hct (34.0-46.0) % MCV (80.0-100.0) fL MCH (25.0-35.0) pg MCHC (31.0-37.0) g/dL RDW (11.5-15.5) % Plt Count (150-450) k/uL MPV Neutrophils % % Lymphocytes % % Monocytes % % Eosinophils % % Basophils % % Neutrophils # (1.3-7.7) k/uL Lymphocytes # (1.0-4.8) k/uL Monocytes # (0-1.0) k/uL Eosinophils # (0-0.7) k/uL Basophils # (0-0.2) k/uL PT (9.0-12.0) sec INR (<1.2) APTT (22.0-30.0) sec Sodium (137-145) mmol/L Potassium (3.5-5.1) mmol/L Chloride (98-107) mmol/L Carbon Dioxide (22-30) mmol/L Anion Gap mmol/L BUN (7-17) mg/dL Creatinine (0.52-1.04) mg/dL Est GFR (CKD-EPI)AfAm (>60 ml/min/1.73 sqM) Est GFR (CKD-EPI)NonAf (>60 ml/min/1.73 sqM) Glucose (74-99) mg/dL Plasma Lactic Acid Osmel 0.6 L (0.7-2.0) mmol/L Calcium (8.4-10.2) mg/dL Total Bilirubin (0.2-1.3) mg/dL AST (14-36) U/L ALT (4-34) U/L Alkaline Phosphatase (38-126) U/L Troponin I <0.012 (0.000-0.034) ng/mL Total Protein (6.3-8.2) g/dL Albumin (3.5-5.0) g/dL Disposition Clinical Impression: COPD (chronic obstructive pulmonary disease) Disposition: HOME SELF-CARE Condition: Good Instructions (If sedation given, give patient instructions): COPD (Chronic Obstructive Pulmonary Disease) (ED) Additional Instructions: Follow-up with PCP. Report back to ER with any new or worsening symptoms. Take medication as prescribed. Prescriptions: predniSONE [Deltasone] 60 mg PO DAILY 5 Days #15 tab Azithromycin [Zithromax Z Pack] 1 tab PO DIRECTED #6 tab Is patient prescribed a controlled substance at d/c from ED?: No Referrals: Pablo De La Garza DO [Primary Care Provider] - 1-2 days Time of Disposition: 23:18
[2022-08-03 23:22] VITALS: BP 122/57; PULSE 51; RESP 19
== END 2022-08-03 23:36 | disposition home or self-care (01) ==
LOC: EC 19:35
DX: J44.9 Chronic obstructive pulmonary disease, unspecified (principal); I48.91 Unspecified atrial fibrillation; K21.9 Gastro-esophageal reflux disease without esophagitis; E78.5 Hyperlipidemia, unspecified; Z86.73 Personal history of transient ischemic attack (TIA), and cerebral infarction without residual deficits; F41.9 Anxiety disorder, unspecified; F32.A Depression, unspecified; F17.200 Nicotine dependence, unspecified, uncomplicated; Z91.041 Radiographic dye allergy status; Z88.2 Allergy status to sulfonamides; Z88.8 Allergy status to other drugs, medicaments and biological substances; Z79.899 Other long term (current) drug therapy
CPT/HCPCS: 94640 ×2; 93005; 80053; 83605; 84484; 85025; 85610; 85730; 71046; 99285; 96374; J2930; 36415

== ENCOUNTER 2022-11-14 20:08 | Inpatient (IN) | payer MEDICARE ==
[2022-11-14] MEDS ORDERED: SODIUM CHLORIDE 0.9% 1,000 ML IV ONE (20:57)
[2022-11-14] MEDS ORDERED: methylPREDNISolone SOD SUCCI 125 MG/2 ML VIAL IV STA (20:58)
[2022-11-14] MEDS ORDERED: diphenhydrAMINE 50 MG/ML 1 ML VIAL IVP STA (20:58)
[2022-11-14] MEDS ORDERED: FAMOTIDINE 20 MG/2 ML VIAL IV STA (20:59)
[2022-11-14] MEDS ORDERED: ACETAMINOPHEN TAB 325 MG TAB PO STA (20:59)
[2022-11-14 21:20] LABS: Basophils % (A) 0 %; Eosinophils # (A) 0.1 k/uL (0-0.7); Eosinophils % (A) 1 %; HGB 11.8 gm/dL (11.4-16.0); Lymphocytes # (A) 1.8 k/uL (1.0-4.8); Lymphocytes % (A) 15 %; MCH 32.1 pg (25.0-35.0); MCHC 33.7 g/dL (31.0-37.0); MCV 95.2 fL (80.0-100.0); Mean Platelet Volume 8.1; Monocytes # (A) 0.9 k/uL (0-1.0); Monocytes % (A) 8 %; Neutrophils # (A) 8.6 k/uL (1.3-7.7); Neutrophils % (A) 74 %; Platelet Count 198 k/uL (150-450); RBC 3.68 m/uL (3.80-5.40); RDW 13.2 % (11.5-15.5); WBC 11.6 k/uL (3.8-10.6)
[2022-11-14 21:29] LABS: ALT 18 U/L (4-34); AST 25 U/L (14-36); African American GFR (CKD) >90 (>60 ml/min/1.73 sqM); Albumin 3.1 g/dL (3.5-5.0); Alkaline Phosphatase 74 U/L (38-126); Anion Gap 6 mmol/L; Blood Urea Nitrogen 24 mg/dL (7-17); Calcium 8.4 mg/dL (8.4-10.2); Carbon Dioxide 27 mmol/L (22-30); Chloride 100 mmol/L (98-107); Glucose 97 mg/dL (74-99); Non-African American GFR(CKD) 83 (>60 ml/min/1.73 sqM); Potassium 3.9 mmol/L (3.5-5.1); Sodium 133 mmol/L (137-145); Total Bilirubin 0.8 mg/dL (0.2-1.3); Total Protein 5.5 g/dL (6.3-8.2)
[2022-11-14 21:34] LABS: INR 0.9 (<1.2); Partial Thromboplastin Time 25.4 sec (22.0-30.0); Prothrombin Time 9.7 sec (9.0-12.0)
[2022-11-14 21:37] LABS: NT-Pro-B-Type Natriuretic Pept 571 pg/mL
[2022-11-14 22:09] LABS: Appearance,Urine Clear (Clear); Bacteria,Urine Rare /hpf; Bilirubin,Urine Negative (Negative); Blood,Urine Moderate (Negative); Budding Yeast,Urine Rare /hpf; Color,Urine Light Red; Glucose,Urine (UA) Negative (Negative); Ketones,Urine Negative (Negative); Leukocyte Esterase,Urine Negative (Negative); Nitrite,Urine Negative (Negative); Protein,Urine Trace (Negative); RBC,Urine 72 /hpf (0-5); Specific Gravity,Urine 1.021 (1.001-1.035); Squamous Epithelial Cell,Urine 1 /hpf (0-4); WBC,Urine 2 /hpf (0-5)
--- NOTE | 2022-11-14 22:10 | XR ---
EXAMINATION TYPE: XR chest 2V DATE OF EXAM: 11/14/2022 9:55 PM COMPARISON: Chest radiographs from multiple priors most recent 323. TECHNIQUE: XR chest 2V Frontal and lateral views of the chest. CLINICAL INDICATION:Female, 82 years old with history of AMS/weakness; FINDINGS: Lungs/Pleura: Haziness the right lung base unsure if this is secondary to patient positioning. There is no evidence of pleural effusion, focal consolidation, or pneumothorax. Pulmonary vascularity: Unremarkable. Heart/mediastinum: Cardiomediastinal silhouette is unremarkable. Rightward shift of the mediastinum. Musculoskeletal: No acute osseous pathology. Deformity left proximal humerus not unchanged from prior s. IMPRESSION: There is rightward deviation of the mediastinum which could be due to patient positioning. Correlate for volume loss in setting of atelectasis. Correlate for consider repeat examination. Haziness right lung base could also be secondary to this positioning.
--- NOTE | 2022-11-14 22:25 | ED ---
General Adult HPI - General Chief complaint: Back Pain/Injury Stated complaint: Back Pain Time Seen by Provider: 11/14/22 20:43 Source: patient, EMS, RN notes reviewed Mode of arrival: EMS - History of Present Illness Initial comments: 82-year-old female with past medical history significant for hypertension presents to the emergency department via EMS with a chief complaint of low back pain and altered mental status. Patient is a and O 1 which is not her baseline. Last known well was approximately 11/10/2022. Denies recent falls or trauma. Patient does not offer any specific complaints other than having mid to lower back pain. History is limited due to patient being altered. - Related Data Home Medications Medication Instructions Recorded Confirmed Omeprazole 40 mg PO DAILY 08/24/17 11/14/22 ALPRAZolam [Xanax] 0.5 mg PO BID PRN 05/21/21 11/14/22 FLUoxetine HCL [PROzac] 40 mg PO DAILY 05/21/21 11/14/22 Acetaminophen Tab [Tylenol] 500 mg PO Q6HR PRN 10/30/21 11/14/22 busPIRone HCl [Buspar] 5 mg PO BID 10/30/21 11/14/22 Propranolol [Inderal] 40 mg PO BID 03/15/22 11/14/22 traMADol HCL 50 mg PO BID PRN 06/29/22 11/14/22 Albuterol Nebulized [Ventolin 2.5 mg INHALATION RT-QID 07/27/22 11/14/22 Nebulized] Aspirin 81 mg PO DAILY 07/27/22 11/14/22 Cetirizine HCl [Zyrtec] 10 mg PO DAILY 07/27/22 11/14/22 Cholecalciferol [Vitamin D3 (25 25 mcg PO DAILY 07/27/22 11/14/22 Mcg = 1000 Iu)] Diclofenac Sodium Gel [Voltaren 2 gm TOPICAL QID PRN 07/27/22 11/14/22 Gel] Fluticasone/Umeclidin/Vilanter 1 puff INHALATION RT-DAILY 11/14/22 11/14/22 [Trelegy Ellipta 100-62.5-25] Previous Rx's Medication Instructions Recorded Albuterol Inhaler [Ventolin Hfa 2 puff INHALATION RT-Q4H PRN #1 07/01/22 Inhaler] each Formoterol Fumarate [Perforomist] 20 mcg INHALATION RT-BID 30 Days 07/01/22 #1 each Tiotropium 2.5 Mcg/Puff [Spiriva 2 puff INHALATION RT-DAILY 30 Days 07/01/22 Respimat 2.5 Mcg] #1 each Allergies Allergy/AdvReac Type Severity Reaction Status Date / Time budesonide [From Symbicort] Allergy Unknown Verified 11/14/22 20:18 formoterol [From Symbicort] Allergy Unknown Verified 11/14/22 20:18 gabapentin Allergy Unknown Verified 11/14/22 20:18 ibuprofen Allergy Unknown Verified 11/14/22 20:18 Iodinated Contrast Media Allergy Unknown Verified 11/14/22 20:18 [Iodinated Contrast- Oral and IV Dye] iodine Allergy Rash/Hives Verified 11/14/22 20:18 Sulfa (Sulfonamide Allergy Rash/Hives Verified 11/14/22 20:18 Antibiotics) topiramate [From Topamax] Allergy Unknown Verified 11/14/22 20:18 lorazepam [From Ativan] AdvReac Hallucinati Verified 11/14/22 20:18 ons prednisone AdvReac dizziness Verified 11/14/22 20:18 zolpidem tartrate AdvReac Hallucinati Verified 11/14/22 20:18 [From Ambien] ons Review of Systems ROS Statement: Those systems with pertinent positive or pertinent negative responses have been documented in the HPI. ROS Other: All systems not noted in ROS Statement are negative. Past Medical History Past Medical History: Atrial Fibrillation, Asthma, COPD, CVA/TIA, Eye Disorder, GERD/Reflux, Hyperlipidemia, Pneumonia Additional Past Medical History / Comment(s): Chronic atrial fibrillation per PMH but pt has no recollection of this, bronchiectasis, essential tremors, previ ous TIA, chronic lumbar back pain, past 6 months R shoulder/cervical pain, balance difficulty with falls, occasional low urinary output and uses lasix prn for this, bilateral varicose veins, dysphagia-able to take pills one at a time with water, small hiatal hernia, restless leg syndrome, seasonal ALLERGIES, History of Any Multi-Drug Resistant Organisms: None Reported Past Surgical History: Hysterectomy Additional Past Surgical History / Comment(s): 11/27/15 EGD with bx, bilateral cataracts removed with lens implants, colonoscopy with 1 benign polypectomy. Past Anesthesia/Blood Transfusion Reactions: No Reported Reaction Past Psychological History: Anxiety, Depression Smoking Status: Current some day smoker Past Alcohol Use History: None Reported Past Drug Use History: None Reported - Past Family History Father Family Medical History: Cancer Additional Family Medical History / Comment(s): Pt thinks father might have from stomach cancer. She was 2 yrs old when he . Sister(s) Family Medical History: Cancer Additional Family Medical History / Comment(s): Half sister with brain cancer. Mother Family Medical History: Dementia Additional Family Medical History / Comment(s): Mother had gallstones and a partial thyroidectomy for noncancerous reasons. General Exam - General Exam Comments Initial Comments: General: Alert, in no acute distress Head: atraumatic normocephalic. Eyes PERRL, EOMI intact, mucous membranes moist Respiratory: Lungs clear to auscultation bilaterally Cardiovascular: Heart rate regular rate and Abdominal: Soft without guarding or rebound Extremities: Normal inspection with full range of motion and normal capillary refill Neuroogic: alert and oriented 1, CN II-XII intact, Skin: warm dry and intact with normal color Course Vital Signs 11/14/22 11/14/22 11/14/22 20:09 21:38 22:43 Temperature 99.0 F Pulse Rate 55 L 71 62 Respiratory 16 22 22 Rate Blood Pressure 102/61 109/55 102/51 O2 Sat by Pulse 94 L 97 94 L Oximetry - Reevaluation(s) Reevaluation #1: 11/14/22 22:25 Patient reevaluated. Patient's son is at bedside reports that patient has been complaining of increased generalized fatigue and weakness. Her last known well is . He reports having a couple of falls however he denies hitting her head or loss of consciousness. He is unsure of whether she takes a anticoagulation. Reevaluation #2: 11/14/22 23:40 Case discussed with britta Tran who agrees and accepts the patient for admission EKG Findings - EKG Comments: EKG Findings:: I interpreted the following: EKG performed at 20:22 rate 11 2 bpm and sinus tachycardia with short CT interval, CT interval 110, QRS duration 82, QT/QTc 355/4-1 Medical Decision Making - Medical Decision Making Was pt. sent in by a medical professional or institution ([facility] Childress, [employer], urgent care, hospital, or fdc...) When possible be specific @ -[No] Did you speak to anyone other than the patient for history (EMS, parent, family, police, friend...)? What history was obtained from this source @ -EMS, Patient Son Did you review nursing and triage notes (agree or disagree)? Why? @ -[I reviewed and agree with nursing and triage notes] Were old charts reviewed (outside hosp., previous admission, EMS record, old EKG, old radiological studies, urgent care reports/EKG's, fdc records)? Report findings @ -[No old charts were reviewed] Differential Diagnosis (chest pain, altered mental status, abdominal pain women, abdominal pain men, vaginal bleeding, weakness, fever, dyspnea, syncope, headache, dizziness, GI bleed, back pain, seizure, CVA, palpatations, mental health, musculoskeletal)? @ -[not applicable] EKG interpreted by me (3pts min.). @ -[As above] X-rays interpreted by me (1pt min.). @ -Chest x-ray reveals rightward deviation of the mediastinum which could be due to positioning there is haziness at the right lung base CT head and neck negative for any intracranial process CT chest abdomen pelvis reveals airspace consolidation in the right lower lobe consistent with lobar pneumonia. No other acute findings in the abdomen or pelvis CT interpreted by me (1pt min.). @ -[None done] U/S interpreted by me (1pt. min.). @ -[None done] What testing was considered but not performed or refused? (CT, X-rays, U/S, labs)? Why? @ -[None] What meds were considered but not given or refused? Why? @ -[None] Did you discuss the management of the patient with other professionals (professionals i.e. JEAN CLAUDE Childress, [employer], lab, RT, psych nurse, dialysis social worker, automotive service cashier, teacher, intelligence officer basic, shoe caser)? Give summary @ -[No] Was smoking cessation discussed for >3mins.? @ -[No] Was critical care preformed (if so, how long)? @ -[No] Were there social determinants of health that impacted care today? How? (Homelessness, low income, unemployed, alcoholism, drug addiction, transportation, low edu. Level, literacy, decrease access to med. care, residential, rehab)? @ -[No] Was there de-escalation of care discussed even if they declined (Discuss DNR or withdrawal of care, Hospice)? DNR status @ -[No] What co-morbidities impacted this encounter? (DM, HTN, Smoking, COPD, CAD, Cancer, CVA, ARF, Chemo, Hep., AIDS, mental health diagnosis, sleep apnea, morbid obesity)? @ -[None] Was patient admitted / discharged? Hospital course, mention meds given and route, prescriptions, significant lab abnormalities, going to OR and other pertinent info. @ -Admission. This is a pleasant 82-year-old female who was noted times one since the emergency department with generalized weakness and altered mental status. Patient had a thorough history and physical exam performed. Patient is alert and oriented times one. Family reports that this is not her baseline and she normallyis. Patient had lab work and imaging department which revealed right lower lobe pneumonia. Patient has WBCs 11.2. I discussed the results in detail the patient, verbalized understanding all questions were addressed. It is agreeable with the plan for admission for IV antibiotics and further observation. Patient was started on IV Rocephin and azithromycin. Case discussed Dr. Gramajo who agrees and accepts the patient for admission. Case discussed with Dr. Strickland [facility] who agrees with plan of care Undiagnosed new problem with uncertain prognosis? @ -[No] Drug Therapy requiring intensive monitoring for toxicity (Heparin, Nitro, Insulin, Cardizem)? @ -[No] Were any procedures done? @ -[No] Diagnosis/symptom? @ -Weakness - Altered Mental Status - Right Lower Lobe Pnuemonia Acute, or Chronic, or Acute on Chronic? @ -Acute Uncomplicated (without systemic symptoms) or Complicated (systemic symptoms)? @ - Uncomplicated Side effects of treatment? @ -[No] Exacerbation, Progression, or Severe Exacerbation? @ -[No] Poses a threat to life or bodily function? How? (Chest pain, [place], [place], pneumonia, PE, COPD, DKA, ARF, appy, cholecystitis, CVA, Diverticulitis, Homicidal, Suicidal, threat to staff... and all critical care pts) @ -Moderate likelihood - Lab Data Result diagrams: 11/14/22 20:22 11/14/22 20:22 Lab Results 11/14/22 11/14/22 11/14/22 Range/Units 20:22 20:22 20:22 WBC 11.6 H (3.8-10.6) k/uL RBC 3.68 L (3.80-5.40) m/uL Hgb 11.8 (11.4-16.0) gm/dL Hct 35.0 (34.0-46.0) % MCV 95.2 (80.0-100.0) fL MCH 32.1 (25.0-35.0) pg MCHC 33.7 (31.0-37.0) g/dL RDW 13.2 (11.5-15.5) % Plt Count 198 (150-450) k/uL MPV 8.1 Neutrophils % 74 % Lymphocytes % 15 % Monocytes % 8 % Eosinophils % 1 % Basophils % 0 % Neutrophils # 8.6 H (1.3-7.7) k/uL Lymphocytes # 1.8 (1.0-4.8) k/uL Monocytes # 0.9 (0-1.0) k/uL Eosinophils # 0.1 (0-0.7) k/uL Basophils # 0.0 (0-0.2) k/uL PT 9.7 (9.0-12.0) sec INR 0.9 (<1.2) APTT 25.4 (22.0-30.0) sec Sodium 133 L (137-145) mmol/L Potassium 3.9 (3.5-5.1) mmol/L Chloride 100 (98-107) mmol/L Carbon Dioxide 27 (22-30) mmol/L Anion Gap 6 mmol/L BUN 24 H (7-17) mg/dL Creatinine 0.66 (0.52-1.04) mg/dL Est GFR (CKD-EPI)AfAm >90 (>60 ml/min/1.73 sqM) Est GFR (CKD-EPI)NonAf 83 (>60 ml/min/1.73 sqM) Glucose 97 (74-99) mg/dL Calcium 8.4 (8.4-10.2) mg/dL Magnesium 2.0 (1.6-2.3) mg/dL Total Bilirubin 0.8 (0.2-1.3) mg/dL AST 25 (14-36) U/L ALT 18 (4-34) U/L Alkaline Phosphatase 74 (38-126) U/L Troponin I (0.000-0.034) ng/mL NT-Pro-B Natriuret Pep 571 pg/mL Total Protein 5.5 L (6.3-8.2) g/dL Albumin 3.1 L (3.5-5.0) g/dL Urine Color Urine Appearance (Clear) Urine pH (5.0-8.0) Ur Specific [employer] (1.001-1.035) Urine Protein (Negative) Urine Glucose (UA) (Negative) Urine Ketones (Negative) Urine Blood (Negative) Urine Nitrite (Negative) Urine Bilirubin (Negative) Urine Urobilinogen (<2.0) mg/dL Ur Leukocyte Esterase (Negative) Urine RBC (0-5) /hpf Urine WBC (0-5) /hpf Ur Squamous Epith Cells (0-4) /hpf Urine Bacteria (None) /hpf Urine Yeast (Budding) (None) /hpf Influenza Type A (PCR) (Not Detectd) Influenza Type B (PCR) (Not Detectd) RSV (PCR) (Not Detectd) SARS-CoV-2 (PCR) (Not Detectd) 11/14/22 11/14/22 11/14/22 Range/Units 20:22 21:31 21:31 WBC (3.8-10.6) k/uL RBC (3.80-5.40) m/uL Hgb (11.4-16.0) gm/dL Hct (34.0-46.0) % MCV (80.0-100.0) fL MCH (25.0-35.0) pg MCHC (31.0-37.0) g/dL RDW (11.5-15.5) % Plt Count (150-450) k/uL MPV Neutrophils % % Lymphocytes % % Monocytes % % Eosinophils % % Basophils % % Neutrophils # (1.3-7.7) k/uL Lymphocytes # (1.0-4.8) k/uL Monocytes # (0-1.0) k/uL Eosinophils # (0-0.7) k/uL Basophils # (0-0.2) k/uL PT (9.0-12.0) sec INR (<1.2) APTT (22.0-30.0) sec Sodium (137-145) mmol/L Potassium (3.5-5.1) mmol/L Chloride (98-107) mmol/L Carbon Dioxide (22-30) mmol/L Anion Gap mmol/L BUN (7-17) mg/dL Creatinine (0.52-1.04) mg/dL Est GFR (CKD-EPI)AfAm (>60 ml/min/1.73 sqM) Est GFR (CKD-EPI)NonAf (>60 ml/min/1.73 sqM) Glucose (74-99) mg/dL Calcium (8.4-10.2) mg/dL Magnesium (1.6-2.3) mg/dL Total Bilirubin (0.2-1.3) mg/dL AST (14-36) U/L ALT (4-34) U/L Alkaline Phosphatase (38-126) U/L Troponin I <0.012 (0.000-0.034) ng/mL NT-Pro-B Natriuret Pep pg/mL Total Protein (6.3-8.2) g/dL Albumin (3.5-5.0) g/dL Urine Color Light Red Urine Appearance Clear (Clear) Urine pH 7.0 (5.0-8.0) Ur Specific [employer] 1.021 (1.001-1.035) Urine Protein Trace H (Negative) Urine Glucose (UA) Negative (Negative) Urine Ketones Negative (Negative) Urine Blood Moderate H (Negative) Urine Nitrite Negative (Negative) Urine Bilirubin Negative (Negative) Urine Urobilinogen 3.0 (<2.0) mg/dL Ur Leukocyte Esterase Negative (Negative) Urine RBC 72 H (0-5) /hpf Urine WBC 2 (0-5) /hpf Ur Squamous Epith Cells 1 (0-4) /hpf Urine Bacteria Rare H (None) /hpf Urine Yeast (Budding) Rare H (None) /hpf Influenza Type A (PCR) Not Detected (Not Detectd) Influenza Type B (PCR) Not Detected (Not Detectd) RSV (PCR) Not Detected (Not Detectd) SARS-CoV-2 (PCR) Not Detected (Not Detectd) Disposition Clinical Impression: Community acquired pneumonia, Weakness, Altered mental status Disposition: ADMITTED IP TO THIS HOSP Condition: Stable Referrals: Pablo De La Garza DO [Primary Care Provider] - 1-2 days Time of Disposition: 23:40
--- NOTE | 2022-11-14 22:26 | CT ---
EXAM: CT Head Without Intravenous Contrast CLINICAL HISTORY: ITS.REASON CT Reason: AMS TECHNIQUE: Axial computed tomography images of the head/brain without intravenous contrast. CTDI is 45.2 mGy and DLP is 2038.8 mGy-cm. This CT exam was performed using one or more of the following dose reduction techniques: automated exposure control, adjustment of the mA and/or kV according to patient size, and/or use of iterative reconstruction technique. COMPARISON: No relevant prior studies available. FINDINGS: No acute intracranial hemorrhage. No midline shift or mass effect. The territorial velazquez-white matter differentiation is maintained throughout. Age-related cerebral volume loss. Periventricular and subcortical white matter hypoattenuation, consistent with chronic microangiopathy. The visualized orbits appear grossly unremarkable. The calvarium is intact. The visualized paranasal sinuses and mastoid air cells are grossly clear. IMPRESSION: No acute intracranial hemorrhage, midline shift, or mass effect. EXAM: CT Cervical Spine Without Intravenous Contrast CLINICAL HISTORY: ITS.REASON CT Reason: AMS TECHNIQUE: Axial computed tomography images of the cervical spine without intravenous contrast. CTDI is 21.3 mGy and DLP is 2038.8 mGy-cm. This CT exam was performed using one or more of the following dose reduction techniques: automated exposure control, adjustment of the mA and/or kV according to patient size, and/or use of iterative reconstruction technique. COMPARISON: No relevant prior studies available. FINDINGS: The vertebral body heights are maintained. The craniocervical junction is intact. The atlanto-dens interval is maintained. The dens is intact. There is no spondylolisthesis. Multilevel cervical spondylosis and degenerative disc disease. Straightening of the cervical lordosis. The unenhanced neck soft tissues are grossly unremarkable. The visualized lung apices are grossly clear. IMPRESSION: No acute fracture or subluxation of the cervical spine.
--- NOTE | 2022-11-14 22:39 | CT ---
EXAM: CT Chest With Intravenous Contrast CLINICAL HISTORY: ITS.REASON CT Reason: low back pain TECHNIQUE: Axial computed tomography images of the chest with intravenous contrast. CTDI is 6.7 mGy and DLP is 2038.8 mGy-cm. This CT exam was performed using one or more of the following dose reduction techniques: automated exposure control, adjustment of the mA and/or kV according to patient size, and/or use of iterative reconstruction technique. COMPARISON: No relevant prior studies available. FINDINGS: Lungs: Airspace consolidation in the RIGHT lower lobe, consistent with lobar pneumonia. No pleural effusion or pneumothorax. Pleural space: See above. Heart: Mild cardiomediastinal shift to the RIGHT. Cardiomegaly. No significant coronary artery calcifications. No pericardial effusion. Mediastinum: Moderate hiatal hernia. Bones/joints: Degenerative changes of the spine. No acute fracture. No dislocation. Soft tissues: Unremarkable. Vasculature: Atherosclerotic changes of the aorta. No thoracic aortic aneurysm. Lymph nodes: Unremarkable. No enlarged lymph nodes. IMPRESSION: 1. Airspace consolidation in the RIGHT lower lobe, consistent with lobar pneumonia. No pleural effusion or pneumothorax. 2. Moderate hiatal hernia. EXAM: CT Abdomen and Pelvis With Intravenous Contrast CLINICAL HISTORY: ITS.REASON CT Reason: low back pain TECHNIQUE: Axial computed tomography images of the abdomen and pelvis with intravenous contrast. CTDI is 6.9 mGy and DLP is 2038.8 mGy-cm. This CT exam was performed using one or more of the following dose reduction techniques: automated exposure control, adjustment of the mA and/or kV according to patient size, and/or use of iterative reconstruction technique. COMPARISON: No relevant prior studies available. FINDINGS: Lung bases: Unremarkable. No mass. No consolidation. ABDOMEN: Liver: Unremarkable. No mass. Gallbladder and bile ducts: Unremarkable. No calcified stones. No ductal dilation. Pancreas: Unremarkable. No mass. No ductal dilation. Spleen: Unremarkable. No splenomegaly. Adrenals: Unremarkable. No mass. Kidneys and ureters: Unremarkable. No solid mass. No hydronephrosis. Stomach and bowel: Diverticulosis, without acute diverticulitis. No small bowel obstruction. No free intraperitoneal air. PELVIS: Appendix: Normal appendix. Bladder: Decompressed urinary bladder. Reproductive: Unremarkable as visualized. ABDOMEN and PELVIS: Intraperitoneal space: Unremarkable. No free air. No significant fluid collection. Bones/joints: Degenerative changes of the spine. Old compression deformities of L2, L3, and T11. No dislocation. Soft tissues: Unremarkable. Vasculature: Atherosclerotic changes of the aorta. No abdominal aortic aneurysm. Lymph nodes: Unremarkable. No enlarged lymph nodes. IMPRESSION: No acute findings in the abdomen or pelvis.
[2022-11-14] MEDS ORDERED: AZITHROMYCIN 500 MG in SODIUM CHLORIDE 0.9% 250 ML IVPB STA (23:31)
[2022-11-14] MEDS ORDERED: PNEUMONIA PROTOCOL UTILIZED 1 EACH MISC PO PRN (23:31)
[2022-11-14] MEDS ORDERED: NALOXONE 0.4 MG/ML 1 ML VIAL IV PRN (23:42)
[2022-11-15] MEDS: PROPRANOLOL 40 MG TAB PO SCH ×3 (02:10→21:54)
--- NOTE | 2022-11-15 02:39 | P.HPIM ---
History of Present Illness H&P Date: 11/14/22 Chief Complaint: altered mental status 82 year old female with COPD on home oxygen 2 L , Afib not on blood thinners she is unable to provide any meaningful history , no family present. history obtained from reviewing medical records patient brought in by EMS for altered mental status and generalized weakness. report of coughing for about 1 day. also report of lower back pain , and falling couple times, no clear injuries, not on blood thinners. last time known well was 11/10/22 patient herself denies any complaints Echo 05/15 --> LVEF 45-50% workup in the ED CT chest abd pelvis , showed right lower lobe infilterates , CT abd no acute pathology blood work did show leukocytosis UA negative social history , smoking PMHx hypertension , afib not on blood thinner, chronic hypoxic respiratory failure , COPD, h/o CVA review of systems unreliable Pertinent positives as noted in HPI. All other systems were reviewed and are negative Constitutional: No acute distress, cooperative Eyes: Anicteric sclerae, moist conjunctiva, Pupils equal round reactive to light ENMT: NC/AT Oropharynx clear, no erythema, or exudates Neck: Supple, no masses, or JVD No carotid bruits No thyromegaly Lungs: good breath sounds, basal fine rales Clear to percussion Normal respiratory effort, no accessory muscle use Cardiovascular: Heart tachycardia in rate and rhythm, No murmurs, gallops, or rubs No peripheral edema Abdominal: Soft tenderrness over the epigastric region with voluntary guarding , no rebound or rigidity Abdomen moving with respiration Normoactive bowel sounds No hepatomegaly, No splenomegaly No palpable mass No abdominal wall hernia noted Skin: Normal temperature, tone, texture, turgor Extremities: No digital cyanosis No clubbing Pedal pulses intact and symmetrical Radial pulses intact and symmetrical No calf tenderness Psychiatric: Alert and oriented to person, only Neuro Muscles Strength 4/5 in all 4 extremities Sensation to light touch grossly present throughout Cranial nerves II-XII grossly intact Lymphatics: no palpable cervical or supraclavicular lymph nodes Past Medical History Past Medical History: Atrial Fibrillation, Asthma, COPD, CVA/TIA, Eye Disorder, GERD/Reflux, Hyperlipidemia, Pneumonia Additional Past Medical History / Comment(s): Chronic atrial fibrillation per PMH but pt has no recollection of this, bronchiectasis, essential tremors, previous TIA, chronic lumbar back pain, past 6 months R shoulder/cervical pain, balance difficulty with falls, occasional low urinary output and uses lasix prn for this, bilateral varicose veins, dysphagia-able to take pills one at a time with water, small hiatal hernia, restless leg syndrome, seasonal ALLERGIES, History of Any Multi-Drug Resistant Organisms: None Reported Past Surgical History: Hysterectomy Additional Past Surgical History / Comment(s): 11/27/15 EGD with bx, bilateral cataracts removed with lens implants, colonoscopy with 1 benign polypectomy. Past Anesthesia/Blood Transfusion Reactions: No Reported Reaction Past Psychological History: Anxiety, Depression Smoking Status: Current some day smoker Past Alcohol Use History: None Reported Past Drug Use History: None Reported - Past Family History Father Family Medical History: Cancer Additional Family Medical History / Comment(s): Pt thinks father might have from stomach cancer. She was 2 yrs old when he . Sister(s) Family Medical History: Cancer Additional Family Medical History / Comment(s): Half sister with brain cancer. Mother Family Medical History: Dementia Additional Family Medical History / Comment(s): Mother had gallstones and a partial thyroidectomy for noncancerous reasons. Medications and Allergies Home Medications Medication Instructions Recorded Confirmed Type Omeprazole 40 mg PO DAILY 08/24/17 11/14/22 History ALPRAZolam [Xanax] 0.5 mg PO BID PRN 05/21/21 11/14/22 History FLUoxetine HCL [PROzac] 40 mg PO DAILY 05/21/21 11/14/22 History Acetaminophen Tab [Tylenol] 500 mg PO Q6HR PRN 10/30/21 11/14/22 History busPIRone HCl [Buspar] 5 mg PO BID 10/30/21 11/14/22 History Propranolol [Inderal] 40 mg PO BID 03/15/22 11/14/22 History traMADol HCL 50 mg PO BID PRN 06/29/22 11/14/22 History Albuterol Inhaler [Ventolin Hfa 2 puff INHALATION RT-Q4H PRN #1 07/01/22 11/14/22 Rx Inhaler] each Formoterol Fumarate [Perforomist] 20 mcg INHALATION RT-BID 30 Days 07/01/22 11/14/22 Rx #1 each Tiotropium 2.5 Mcg/Puff [Spiriva 2 puff INHALATION RT-DAILY 30 Days 07/01/22 11/14/22 Rx Respimat 2.5 Mcg] #1 each Albuterol Nebulized [Ventolin 2.5 mg INHALATION RT-QID 07/27/22 11/14/22 History Nebulized] Aspirin 81 mg PO DAILY 07/27/22 11/14/22 History Cetirizine HCl [Zyrtec] 10 mg PO DAILY 07/27/22 11/14/22 History Cholecalciferol [Vitamin D3 (25 25 mcg PO DAILY 07/27/22 11/14/22 History Mcg = 1000 Iu)] Diclofenac Sodium Gel [Voltaren 2 gm TOPICAL QID PRN 07/27/22 11/14/22 History Gel] Fluticasone/Umeclidin/Vilanter 1 puff INHALATION RT-DAILY 11/14/22 11/14/22 History [Trelegy Ellipta 100-62.5-25] Allergies Allergy/AdvReac Type Severity Reaction Status Date / Time budesonide [From Symbicort] Allergy Unknown Verified 11/14/22 20:18 formoterol [From Symbicort] Allergy Unknown Verified 11/14/22 20:18 gabapentin Allergy Unknown Verified 11/14/22 20:18 ibuprofen Allergy Unknown Verified 11/14/22 20:18 Iodinated Contrast Media Allergy Unknown Verified 11/14/22 20:18 [Iodinated Contrast- Oral and IV Dye] iodine Allergy Rash/Hives Verified 11/14/22 20:18 Sulfa (Sulfonamide Allergy Rash/Hives Verified 11/14/22 20:18 Antibiotics) topiramate [From Topamax] Allergy Unknown Verified 11/14/22 20:18 lorazepam [From Ativan] AdvReac Hallucinati Verified 11/14/22 20:18 ons prednisone AdvReac dizziness Verified 11/14/22 20:18 zolpidem tartrate AdvReac Hallucinati Verified 11/14/22 20:18 [From Ambien] ons Physical Exam Vitals: Vital Signs Temp Pulse Pulse Resp BP BP Pulse Ox 11/15/22 01:58 97.8 F 114 H 18 99/60 94 L 11/15/22 00:00 61 16 103/59 97 11/14/22 22:43 62 22 102/51 94 L 11/14/22 21:38 71 22 109/55 97 11/14/22 20:09 99.0 F 55 L 16 102/61 94 L Intake and Output 11/14/22 11/14/22 11/15/22 14:59 22:59 06:59 Other: Weight 49.895 kg Results CBC & Chem 7: 11/14/22 20:22 11/14/22 20:22 Labs: Abnormal Lab Results - Last 24 Hours (Table) 11/14/22 11/14/22 11/14/22 Range/Units 20:22 20:22 21:31 WBC 11.6 H (3.8-10.6) k/uL RBC 3.68 L (3.80-5.40) m/uL Neutrophils # 8.6 H (1.3-7.7) k/uL Sodium 133 L (137-145) mmol/L BUN 24 H (7-17) mg/dL Total Protein 5.5 L (6.3-8.2) g/dL Albumin 3.1 L (3.5-5.0) g/dL Urine Protein Trace H (Negative) Urine Blood Moderate H (Negative) Urine RBC 72 H (0-5) /hpf Urine Bacteria Rare H (None) /hpf Urine Yeast (Budding) Rare H (None) /hpf Assessment and Plan Assessment: 82 year old female with afib , copd, coming in for AMS and coughing, I discussed the case with ED doc, and I accepted the admission for sepsis secondary to pneumonia with anticipated length of stay > 24 hours acute metabolic encephalopathy sepsis 2/2 pneumonia chronic hypoxic respiratory failure on home oxygen COPD , compensated dementia afib with RVR plan follow up cultures UA negative acute respiratory viral panel negative CT chest abd pelvis , showed right lower lobe infilterates , with no acute findings in the abd leukocytosis 11.6, tachycardia , respiratory rate 22 started on rocephine 2 gm IVPB daily ,. azithromycin 500 mg IVPB daily tylenol for fever resume PO propranolol for afib not on blood thinners duonebs , resume home inhalers supplemental oxygen as needed fall precautions h/o CHF , 04/2021 LVEF 45-50% protonix daily for GI PPX full code DVT ppx heparin sc tid
[2022-11-15] MEDS: SODIUM CHLORIDE 0.9% 1,000 ML IV SCH (03:10)
[2022-11-15 06:04] LABS: Glucose,Whole Blood 154 mg/dL (70-110)
--- NOTE | 2022-11-15 08:20 | XR ---
EXAMINATION TYPE: XR chest 1V portable DATE OF EXAM: 11/15/2022 HISTORY: Shortness of breath. COMPARISON: 11/14/2022 TECHNIQUE: Single view of the chest is submitted. FINDINGS: Demonstrated are scattered senescent parenchymal change. Persistent right-sided volume loss with right perihilar and right basilar infiltrate and small effusi on. Hyperinflation of the left lung. Overall appearance is stable. The heart is stable. Hilar and mediastinal structures are within normal limits. Degenerative changes are seen of the dorsal spine. IMPRESSION: 1. Persistent right-sided volume loss with right perihilar and right basilar infiltrate and small ef fusion. Hyperinflation of the left lung. Overall appearance is stable.
[2022-11-15] MEDS: PANTOPRAZOLE 40 MG TABLET PO SCH (08:46)
[2022-11-15] MEDS: FLUoxetine HCL 20 MG CAP PO SCH (08:46)
[2022-11-15] MEDS: ASPIRIN 81 MG PO SCH (08:46)
[2022-11-15] MEDS: HEPARIN SODIUM,PORCINE/PF 5,000 UNIT/0.5 ML SYRINGE SQ SCH ×2 (08:50→16:19)
[2022-11-15] MEDS: IPRATROPIUM 0.5 MG/2.5 ML NEBU INHALATION SCH ×4 (09:26→20:53)
[2022-11-15] MEDS: SYMBICORT 80-4.5 MCG INHALER INHALATION SCH ×2 (09:27→20:53)
[2022-11-15] MEDS: FORMOTEROL FUMARATE 20 MCG/2 ML NEBU INHALATION SCH ×2 (09:27→20:53)
--- NOTE | 2022-11-15 11:21 | P.PN ---
Subjective Progress Note Date: 11/15/22 Hospital Course: 82-year-old female with history of COPD on 2 L atrial fibrillation not on anticoagulation, hypertension, history of CVA presenting with altered mentation. In the ED, CT chest abd pelvis , showed right lower lobe infilterates , CT abd no acute pathology . WBC elevated at 11.6, urinalysis negative for nitrites or leukocyte esterase, rare budding yeast, rare bacteria. Patient admitted for pneumonia, on IV antibiotics. Subjective: Patient seen and examined at bedside. He claims that she has some left-sided abdominal pain, and increased urinary frequency. Denies any other complaints Pertinent positives and negatives as discussed above, a complete review of systems was performed and all other systems are negative. Vitals Signs Reviewed. General: nontoxic, no distress, appears at stated age Derm: warm, dry Head: atraumatic, normocephalic, symmetric Eyes: EOMI, no lid lag, anicteric sclera Mouth: no lip lesion, mucus membranes moist Cardiovascular: S1S2 reg, no murmur Lungs: Reduced breath sounds bilaterally , no accessory muscle use Abdominal: soft, mildly tender to palpation on the left abdomen, no guarding, no appreciable organomegaly Ext: no gross muscle atrophy, no edema, no contractures Neuro: CN II-XI grossly intact, no focal neuro deficits Psych: Alert, oriented 1, appropriate affect Data Reviewed Today: Pertinent Labs: Blood glucose 154, cultures pending Imaging: Chest x-ray and apparently interpreted, shows right-sided opacity, hyperinflation of the left lung, stable from yesterday Assessment and Plan: Active: Acute metabolic encephalopathy Suspected pneumonia Leukocytosis Atrial fibrillation not on anticoagulation Recurrent falls -Encephalopathy likely the setting of pneumonia -Urinalysis negative -Continue IV ceftriaxone and IV azithromycin -Cultures pending -Repeat CBC and BMP tomorrow -Has been bradycardic, holding her morning dose of propranolol -PT/OT Chronic: Hypertension COPD not in exacerbation DVT ppx: heparin gtt Code status: full code Anticipated discharge place: pending clinical course Anticipated discharge time: pending clinical course Objective - Vital Signs Vital signs: Vital Signs Temp 97.6 F 11/15/22 07:17 Pulse 80 11/15/22 10:16 Resp 17 11/15/22 10:16 BP 95/59 11/15/22 07:17 Pulse Ox 96 11/15/22 07:17 FiO2 Intake & Output 11/14/22 11/15/22 11/15/22 18:59 06:59 18:59 Weight 49.895 kg 49.895 kg Other: Voiding Method Toilet # Voids 1 - Labs CBC & Chem 7: 11/14/22 20:22 11/14/22 20:22 Labs: Abnormal Lab Results - Last 24 Hours (Table) 11/14/22 11/14/22 11/14/22 Range/Units 20:22 20:22 21:31 WBC 11.6 H (3.8-10.6) k/uL RBC 3.68 L (3.80-5.40) m/uL Neutrophils # 8.6 H (1.3-7.7) k/uL Sodium 133 L (137-145) mmol/L BUN 24 H (7-17) mg/dL POC Glucose (mg/dL) (70-110) mg/dL Total Protein 5.5 L (6.3-8.2) g/dL Albumin 3.1 L (3.5-5.0) g/dL Urine Protein Trace H (Negative) Urine Blood Moderate H (Negative) Urine RBC 72 H (0-5) /hpf Urine Bacteria Rare H (None) /hpf Urine Yeast (Budding) Rare H (None) /hpf 11/15/22 Range/Units 06:02 WBC (3.8-10.6) k/uL RBC (3.80-5.40) m/uL Neutrophils # (1.3-7.7) k/uL Sodium (137-145) mmol/L BUN (7-17) mg/dL POC Glucose (mg/dL) 154 H (70-110) mg/dL Total Protein (6.3-8.2) g/dL Albumin (3.5-5.0) g/dL Urine Protein (Negative) Urine Blood (Negative) Urine RBC (0-5) /hpf Urine Bacteria (None) /hpf Urine Yeast (Budding) (None) /hpf
[2022-11-15] MEDS: ALPRAZolam 0.5 MG TAB PO PRN ×2 (16:32→21:54)
[2022-11-16] MEDS: HEPARIN SODIUM,PORCINE/PF 5,000 UNIT/0.5 ML SYRINGE SQ SCH ×5 (00:27→23:26)
[2022-11-16] MEDS: SODIUM CHLORIDE 0.9% 1,000 ML IV SCH (02:52)
[2022-11-16] MEDS: AZITHROMYCIN 500 MG in SODIUM CHLORIDE 0.9% 250 ML IVPB SCH (02:58)
[2022-11-16] MEDS: PANTOPRAZOLE 40 MG TABLET PO SCH (06:39)
[2022-11-16] MEDS: PROPRANOLOL 40 MG TAB PO SCH ×3 (08:11→21:28)
[2022-11-16] MEDS: FLUoxetine HCL 20 MG CAP PO SCH (08:17)
[2022-11-16] MEDS: ASPIRIN 81 MG PO SCH (08:17)
[2022-11-16 09:21] LABS: Basophils # (A) 0.02 X 10*3/uL (0.00-0.10); Basophils % (A) 0.2 %; Eosinophils # (A) 0.01 X 10*3/uL (0.04-0.35); Eosinophils % (A) 0.1 %; HCT 32.3 % (37.2-46.3); HGB 10.6 d/dL (12.0-15.0); Lymphocytes # (A) 1.73 X 10*3/uL (0.90-5.00); Lymphocytes % (A) 18.7 %; MCH 30.5 pg (27.0-32.0); MCHC 32.8 d/dL (32.0-37.0); MCV 92.8 FL (80.0-97.0); Mean Platelet Volume 9.9 FL (9.5-12.2); Monocytes # (A) 0.82 X 10*3/uL (0.20-1.00); Monocytes % (A) 8.8 %; NRBC Per 100 WBC 0 X 10*3/uL (0.00-0.01); Neutrophils # (A) 6.63 X 10*3/uL (1.80-7.70); Neutrophils % (A) 71.6 %; Platelet Count 238 X 10*3/uL (140-440); RBC 3.48 X 10*6/uL (4.10-5.20); RDW 13.5 % (11.5-14.5); WBC 9.27 X 10*3/uL (4.50-10.00)
[2022-11-16 09:45] LABS: BUN/Creat Ratio 23.14 Ratio (12.00-20.00); Blood Urea Nitrogen 16.2 mg/dL (9.0-27.0); Calcium 8.6 mg/dL (8.7-10.3); Chloride 108 mmol/L (96-109); Glucose 96 mg/dL (70-110); Potassium 3.7 mmol/L (3.5-5.5); Sodium 143 mmol/L (135-145)
[2022-11-16] MEDS: SYMBICORT 80-4.5 MCG INHALER INHALATION SCH (09:46)
[2022-11-16] MEDS: FORMOTEROL FUMARATE 20 MCG/2 ML NEBU INHALATION SCH ×2 (09:47→21:18)
[2022-11-16] MEDS: IPRATROPIUM 0.5 MG/2.5 ML NEBU INHALATION SCH ×4 (09:47→21:18)
--- NOTE | 2022-11-16 13:11 | P.PN ---
Subjective Progress Note Date: 11/16/22 Hospital Course: 82-year-old female with history of COPD on 2 L atrial fibrillation not on anticoagulation, hypertension, history of CVA presenting with altered mentation. In the ED, CT chest abd pelvis , showed right lower lobe infilterates , CT abd no acute pathology . WBC elevated at 11.6, urinalysis negative for nitrites or leukocyte esterase, rare budding yeast, rare bacteria. Patient admitted for pneumonia, on IV antibiotics. Subjective: Patient seen and examined at bedside. Denies any new complaints Pertinent positives and negatives as discussed above, a complete review of systems was performed and all other systems are negative. Vitals Signs Reviewed. General: nontoxic, no distress, appears at stated age Derm: warm, dry Head: atraumatic, normocephalic, symmetric Eyes: EOMI, no lid lag, anicteric sclera Mouth: no lip lesion, mucus membranes moist Cardiovascular: S1S2 reg, no murmur Lungs: Reduced breath sounds bilaterally , no accessory muscle use Abdominal: soft, mildly tender to palpation on the left abdomen, no guarding, no appreciable organomegaly Ext: no gross muscle atrophy, no edema, no contractures Neuro: CN II-XI grossly intact, no focal neuro deficits Psych: Alert, oriented 1, appropriate affect Data Reviewed Today: Pertinent Labs: WBC 9.27, hemoglobin 10.6, potassium 3.7, creatinine 0.7 Imaging: No new imaging Assessment and Plan: Active: Acute metabolic encephalopathy Suspected pneumonia Leukocytosis, resolved Atrial fibrillation not on anticoagulation Recurrent falls Mild normocytic anemia -Encephalopathy likely the setting of pneumonia -Urinalysis negative -Continue IV ceftriaxone and IV azithromycin -Cultures negative growth to date -Anemia likely in the setting of acute illness, repeat CBC tomorrow -PT/OT Chronic: Hypertension COPD not in exacerbation DVT ppx: Subcu heparin Code status: full code Anticipated discharge place: pending clinical course Anticipated discharge time: pending clinical course Objective - Vital Signs Vital signs: Vital Signs Temp 98.3 F 11/16/22 12:49 Pulse 58 L 11/16/22 12:49 Resp 18 11/16/22 12:49 BP 128/65 11/16/22 12:49 Pulse Ox 94 L 11/16/22 12:49 FiO2 Intake & Output 11/15/22 11/16/22 11/16/22 18:59 06:59 18:59 Weight 49.895 kg Other: Voiding Method Toilet Toilet Toilet # Voids 4 2 - Labs CBC & Chem 7: 11/16/22 05:19 11/16/22 05:19 Labs: Abnormal Lab Results - Last 24 Hours (Table) 11/16/22 11/16/22 Range/Units 05:19 05:19 RBC 3.48 L (4.10-5.20) X 10*6/uL Hgb 10.6 L (12.0-15.0) d/dL Hct 32.3 L (37.2-46.3) % Eosinophils # 0.01 L (0.04-0.35) X 10*3/uL BUN/Creatinine Ratio 23.14 H (12.00-20.00) Ratio Calcium 8.6 L (8.7-10.3) mg/dL Microbiology - Last 24 Hours (Table) 11/15/22 00:19 Blood Culture - Preliminary Blood 11/15/22 00:04 Blood Culture - Preliminary Blood
--- NOTE | 2022-11-16 19:59 | XR ---
EXAMINATION TYPE: XR abdomen 1V DATE OF EXAM: 11/16/2022 Comparison: None Clinical History: 82-year-old female with abdominal pain Findings: There is underlying opacity at the right base. No dilated small bowel. Supine imaging limited for ass essment of free air. No significant stool burden. No suspicious calcifications seen. L3 inferior endp late deformity now present. Impression: 1. Focal right basilar opacity; correlate for volume loss and potential pneumonia. 2. Nonspecific, nonobstructive bowel gas pattern. No significant stool burden.
[2022-11-16] MEDS: ALPRAZolam 0.5 MG TAB PO PRN (21:27)
[2022-11-17] MEDS: SODIUM CHLORIDE 0.9% 1,000 ML IV SCH (01:03)
[2022-11-17] MEDS: AZITHROMYCIN 500 MG in SODIUM CHLORIDE 0.9% 250 ML IVPB SCH (03:01)
[2022-11-17] MEDS: PANTOPRAZOLE 40 MG TABLET PO SCH (06:48)
[2022-11-17] MEDS: ASPIRIN 81 MG PO SCH (08:19)
[2022-11-17] MEDS: PROPRANOLOL 40 MG TAB PO SCH ×2 (08:19→20:31)
[2022-11-17] MEDS: FLUoxetine HCL 20 MG CAP PO SCH (08:20)
[2022-11-17] MEDS: HEPARIN SODIUM,PORCINE/PF 5,000 UNIT/0.5 ML SYRINGE SQ SCH ×2 (08:20→15:39)
[2022-11-17] MEDS: IPRATROPIUM 0.5 MG/2.5 ML NEBU INHALATION SCH ×4 (09:05→19:12)
[2022-11-17] MEDS: FORMOTEROL FUMARATE 20 MCG/2 ML NEBU INHALATION SCH ×2 (09:05→19:12)
[2022-11-17] MEDS: TRELEGY ELLIPTA 100-62.5-25 INHALATION SCH (09:12)
[2022-11-17] MEDS ORDERED: IPRATROPIUM-ALBUTEROL 3 ML NEB INHALATION PRN (12:06)
--- NOTE | 2022-11-17 13:09 | CDI ---
Documentation Clarification Form Date: 11/17/2022 12:57:44 PM From: Camilla Kumar RN, CCDS Email: [email or web address] Admit Date: 11/14/2022 11:43:00 PM Patient Name: Angel Gomez Visit Number: [id number] Discharge Date: ATTENTION: The Clinical Documentation Specialists (CDI) and [facility] Coding Staff appreciate your assistance in clarifying documentation. Please respond to the clarification below the line at the bottom and electronically sign. The CDI & [facility] Coding staff will review the response and follow-up if needed. Please note: Queries are made part of the Legal Health Record. If you have any questions, please contact the author of this message via ITS. Dr. Rajeev Mejia Sepsis is documented in the H&P but is not noted in subsequent documentation. Clarification is requested. History/Risk Factors: afib, copd, came in for AMS and coughing. Clinical Indicators: H&P: "I accepted the admission for sepsis secondary to pneumonia. sepsis 2/2 pneumonia." 11/14 Temp 99.0, HR 55, RR 16-22, BP 102/61 11/14 WBC 11.6, BC no growth after 24 hours 11/15 CXR: Persistent right-sided volume loss with right perihilar and right basilar infiltrate and small effusion Treatment: IV Azithromycin 500mg daily 11/16-current. IV Rocephin 2gm Q24H 11/14- current. 0.9 NS 1L bolus on 11/14 then 20ml/hr Please clarify if Sepsis is: [ ] Sepsis is confirmed, remains under treatment [ ] Sepsis confirmed, resolved [ ] Sepsis ruled out [ ] Other condition, please specify [ ] Unable to determine please forward this inquiry to the day time provider in charge of this patient care dr Luis AVILA
[2022-11-17] MEDS: predniSONE 20 MG TAB PO SCH (13:45)
--- NOTE | 2022-11-17 14:19 | P.PN ---
Subjective Progress Note Date: 11/17/22 ProgressHospital Course: 82-year-old female with history of COPD on 2 L atrial fibrillation not on anticoagulation, hypertension, history of CVA presenting with altered mentation. In the ED, CT chest abd pelvis , showed right lower lobe infilterates , CT abd no acute pathology . WBC elevated at 11.6, urinalysis negative for nitrites or leukocyte esterase, rare budding yeast, rare bacteria. Patient admitted for pneumonia, on IV antibiotics. Patient is also on oxygen, having wheezing, likely COPD exacerbation as well. Mental status improving. Subjective: Patient seen and examined at bedside. Still having shortness of breath. Denies any other new complaints. Pertinent positives and negatives as discussed above, a complete review of systems was performed and all other systems are negative. Vitals Signs Reviewed. General: nontoxic, no distress, appears at stated age Derm: warm, dry Head: atraumatic, normocephalic, symmetric Eyes: EOMI, no lid lag, anicteric sclera Mouth: no lip lesion, mucus membranes moist Cardiovascular: S1S2 reg, no murmur Lungs: Reduced breath sounds bilaterally , scattered wheezing, no accessory muscle use Abdominal: soft, mildly tender to palpation on the left abdomen, no guarding, no appreciable organomegaly Ext: no gross muscle atrophy, no edema, no contractures Neuro: CN II-XI grossly intact, no focal neuro deficits Psych: Alert, oriented 3, appropriate affect Data Reviewed Today: Pertinent Labs: Morning labs pending, will be reviewed when available Imaging: No new imaging Assessment and Plan: Active: Acute metabolic encephalopathy Acute hypoxic respiratory failure Community-acquired pneumonia COPD exacerbation Leukocytosis, resolved Atrial fibrillation not on anticoagulation Recurrent falls Mild normocytic anemia -Encephalopathy likely the setting of pneumonia and COPD exacerbation -TSH and B12 pending -Urinalysis negative -Continue IV ceftriaxone and IV azithromycin -Cultures negative growth to date -Started on oral steroids and bronchodilators -Continue to wean oxygen -Anemia likely in the setting of acute illness -PT/OT Chronic: Hypertension DVT ppx: Subcu heparin Code status: full code Anticipated discharge place: Home with home care Anticipated discharge time: pending clinical course Objective - Vital Signs Vital signs: Vital Signs Temp 98.4 F 11/17/22 06:51 Pulse 63 11/17/22 11:14 Resp 18 11/17/22 09:25 BP 109/63 11/17/22 06:51 Pulse Ox 99 11/17/22 09:10 FiO2 Intake & Output 11/16/22 11/17/22 11/17/22 18:59 06:59 18:59 Other: Voiding Method Toilet Toilet Toilet # Voids 6 3 - Labs CBC & Chem 7: 11/16/22 05:19 11/16/22 05:19 Labs: Microbiology - Last 24 Hours (Table) 11/15/22 00:19 Blood Culture - Preliminary Blood 11/15/22 00:04 Blood Culture - Preliminary Blood
[2022-11-17 14:24] LABS: Basophils # (A) 0.02 X 10*3/uL (0.00-0.10); Basophils % (A) 0.3 %; Eosinophils # (A) 0.05 X 10*3/uL (0.04-0.35); Eosinophils % (A) 0.7 %; HCT 34.1 % (37.2-46.3); HGB 11.3 d/dL (12.0-15.0); Lymphocytes # (A) 1.38 X 10*3/uL (0.90-5.00); Lymphocytes % (A) 20.2 %; MCH 30.8 pg (27.0-32.0); MCHC 33.1 d/dL (32.0-37.0); MCV 92.9 FL (80.0-97.0); Mean Platelet Volume 10.3 FL (9.5-12.2); Monocytes # (A) 0.89 X 10*3/uL (0.20-1.00); NRBC Per 100 WBC 0 X 10*3/uL (0.00-0.01); Neutrophils # (A) 4.47 X 10*3/uL (1.80-7.70); Neutrophils % (A) 65.7 %; Platelet Count 280 X 10*3/uL (140-440); RBC 3.67 X 10*6/uL (4.10-5.20); RDW 13.2 % (11.5-14.5); WBC 6.82 X 10*3/uL (4.50-10.00)
[2022-11-17 14:43] LABS: BUN/Creat Ratio 11.57 Ratio (12.00-20.00); Blood Urea Nitrogen 8.1 mg/dL (9.0-27.0); Carbon Dioxide 29.6 mmol/L (21.6-31.8); Chloride 104 mmol/L (96-109); Glucose 96 mg/dL (70-110); Potassium 3.8 mmol/L (3.5-5.5); Sodium 142 mmol/L (135-145)
[2022-11-17] MEDS: ALPRAZolam 0.5 MG TAB PO PRN (16:07)
[2022-11-18] MEDS: HEPARIN SODIUM,PORCINE/PF 5,000 UNIT/0.5 ML SYRINGE SQ SCH ×2 (01:27→08:53)
[2022-11-18] MEDS: AZITHROMYCIN 500 MG in SODIUM CHLORIDE 0.9% 250 ML IVPB SCH (02:29)
[2022-11-18] MEDS: IPRATROPIUM 0.5 MG/2.5 ML NEBU INHALATION SCH ×2 (08:50→12:24)
[2022-11-18] MEDS: FORMOTEROL FUMARATE 20 MCG/2 ML NEBU INHALATION SCH (08:50)
[2022-11-18] MEDS: PANTOPRAZOLE 40 MG TABLET PO SCH (08:55)
[2022-11-18] MEDS: ASPIRIN 81 MG PO SCH (08:55)
[2022-11-18] MEDS: predniSONE 20 MG TAB PO SCH (08:55)
[2022-11-18] MEDS: FLUoxetine HCL 20 MG CAP PO SCH (08:55)
[2022-11-18] MEDS: PROPRANOLOL 40 MG TAB PO SCH (08:55)
[2022-11-18 08:57] VITALS: RESP 18
[2022-11-18] MEDS: TRELEGY ELLIPTA 100-62.5-25 INHALATION SCH (09:10)
[2022-11-18] MEDS ORDERED: NON FORMULARY DRUG (Albuterol Inhaler 90 MCG Puff) INHALATION PRN (11:09)
[2022-11-18] MEDS: SODIUM CHLORIDE 0.9% 1,000 ML IV SCH (11:39)
--- NOTE | 2022-11-18 14:09 | P.PN ---
Subjective Progress Note Date: 11/18/22 Discharge Diagnosis: Acute metabolic encephalopathy Acute hypoxic respiratory failure Community-acquired pneumonia COPD exacerbation Leukocytosis Atrial fibrillation not on anticoagulation Recurrent falls Mild normocytic anemia Hospital Course: 82-year-old female with history of COPD on 2 L atrial fibrillation not on anticoagulation, hypertension, history of CVA presenting with altered mentation. In the ED, CT chest abd pelvis , showed right lower lobe infilterates , CT abd no acute pathology . WBC elevated at 11.6, urinalysis negative for nitrites or leukocyte esterase, rare budding yeast, rare bacteria. Patient admitted for pneumonia, on IV antibiotics. Patient is also on oxygen, having wheezing, likely COPD exacerbation as well. Was started on bronchodilators and steroids. Mental status improving. Patient may discharge home on oral antibiotics and oral steroids. Plan communicated with the daughter. Patient seen and examined at bedside. Vital signs reviewed and stable. General: nontoxic, no distress, appears at stated age Derm: warm, dry Head: atraumatic, normocephalic, symmetric Eyes: EOMI, no lid lag, anicteric sclera Mouth: no lip lesion, mucus membranes moist Cardiovascular: S1S2 reg, no murmur Lungs: CTA bilateral, no rhonchi, no rales , no accessory muscle use Abdominal: soft, nontender to palpation, no guarding, no appreciable organomegaly Ext: no gross muscle atrophy, no edema, no contractures Neuro: CN II-XI grossly intact, no focal neuro deficits Psych: Alert, oriented, appropriate affect A total of 36 minutes of time were spent preparing this complex discharge summary. Patient was discharged on 11/18/22 at 11:22. Objective - Vital Signs Vital signs: Vital Signs Temp 97.9 F 11/18/22 07:03 Pulse 64 11/18/22 12:35 Resp 18 11/18/22 07:03 BP 120/55 11/18/22 07:03 Pulse Ox 96 11/18/22 08:50 FiO2 Intake & Output 11/17/22 11/18/22 11/18/22 18:59 06:59 18:59 Other: Voiding Method Toilet Toilet # Voids 3 2 - Labs CBC & Chem 7: 11/17/22 07:26 11/17/22 07:26 Labs: Abnormal Lab Results - Last 24 Hours (Table) 11/17/22 11/17/22 Range/Units 07:26 07:26 RBC 3.67 L (4.10-5.20) X 10*6/uL Hgb 11.3 L (12.0-15.0) d/dL Hct 34.1 L (37.2-46.3) % BUN 8.1 L (9.0-27.0) mg/dL BUN/Creatinine Ratio 11.57 L (12.00-20.00) Ratio Microbiology - Last 24 Hours (Table) 11/16/22 21:40 Gram Stain - Preliminary Sputum 11/15/22 00:19 Blood Culture - Preliminary Blood 11/15/22 00:04 Blood Culture - Preliminary Blood
[2022-11-18 15:00] VITALS: BP 112/49; PULSE 62; TEMP 97.7
[2022-11-18] MEDS ORDERED: busPIRone HCl 5 MG TAB PO SCH (21:00)
[2022-11-19] MEDS ORDERED: CHOLECALCIFEROL 25 MCG (1000 IU) TABLET PO SCH (09:00)
--- NOTE | 2022-11-21 13:26 | CDI ---
Documentation Clarification Form Date: 11/17/2022 12:57:00 PM From: Camilla Kumar RN, CCDS Email: [email or web address] Admit Date: 11/14/2022 11:43:00 PM Patient Name: Angel Gomez Visit Number: [id number] Discharge Date: 11/18/2022 03:17:00 PM ATTENTION: The Clinical Documentation Specialists (CDI) and [facility] Coding Staff appreciate your assistance in clarifying documentation. Please respond to the clarification below the line at the bottom and electronically sign. The CDI & [facility] Coding staff will review the response and follow-up if needed. Please note: Queries are made part of the Legal Health Record. If you have any questions, please contact the author of this message via ITS. Dr. Alfonso Smith Sepsis is documented in the H&P but is not noted in subsequent documentation. Clarification is requested. History/Risk Factors: afib, copd, came in for AMS and coughing. Clinical Indicators: H&P: "I accepted the admission for sepsis secondary to pneumonia. sepsis 2/2 pneumonia." 11/14 Temp 99.0, HR 55, RR 16-22, BP 102/61 11/14 WBC 11.6, BC no growth after 24 hours 11/15 CXR: Persistent right-sided volume loss with right perihilar and right basilar infiltrate and small effusion Treatment: IV Azithromycin 500mg daily 11/16-current. IV Rocephin 2gm Q24H 11/14- current. 0.9 NS 1L bolus on 11/14 then 20ml/hr Please clarify if Sepsis is: [ ] Sepsis is confirmed, remains under treatment [ ] Sepsis confirmed, resolved [ x ] Sepsis ruled out [ ] Other condition, please specify [ ] Unable to determine MTDD
== END 2022-11-18 15:17 | disposition home health service (06) | DRG 193 ==
LOC: EC 20:08 → 4SSUR 23:43
PROVIDERS: ADMIT Internal Medicine; ATTEND Internal Medicine
DX: J18.9 Pneumonia, unspecified organism (principal); G93.41 Metabolic encephalopathy; J96.21 Acute and chronic respiratory failure with hypoxia; F03.94 Unspecified dementia, unspecified severity, with anxiety; I48.20 Chronic atrial fibrillation, unspecified; J44.0 Chronic obstructive pulmonary disease with (acute) lower respiratory infection; D64.9 Anemia, unspecified; E78.5 Hyperlipidemia, unspecified; F17.200 Nicotine dependence, unspecified, uncomplicated; I50.9 Heart failure, unspecified; I11.0 Hypertensive heart disease with heart failure; R29.6 Repeated falls; Z96.1 Presence of intraocular lens; Z20.822 Contact with and (suspected) exposure to COVID-19; Z79.82 Long term (current) use of aspirin; Z79.899 Other long term (current) drug therapy; Z80.8 Family history of malignant neoplasm of other organs or systems; Z90.710 Acquired absence of both cervix and uterus; Z99.81 Dependence on supplemental oxygen
CPT/HCPCS: 36415; 51701; 70450; 71045; 71046; 71260; 72125; 74018; 74177; 80048; 80053; 81001; 82607; 83735; 83880; 84443; 84484; 85025; 85610; 85730; 87040; 87070; 87205; 87449; 87636; 93005; 94640; 94760; 96361; 96374; 96375; 99285

== ENCOUNTER → 2022-11-28 | Outpatient (CLI) | payer MEDICARE ==
--- NOTE | 2022-11-29 09:43 | XR ---
EXAMINATION TYPE: XR chest 2V DATE OF EXAM: 11/28/2022 COMPARISON: 11/15/2022 HISTORY: Shortness of breath TECHNIQUE: Frontal and lateral views of the chest are obtained. FINDINGS: Scattered senescent parenchymal changes noted. Hyperinflation compatible with COPD. Right-sided volum e loss redemonstrated. No evidence for infiltrate. No evidence for atelectasis. Heart size is stable. Mediastinal structures are stable and grossly unremarkable. No evidence for hilar prominence. Degenerative changes dorsal spine. IMPRESSION: 1. No evidence for acute pulmonary disease.
--- NOTE | 2022-11-29 09:46 | XR ---
EXAMINATION TYPE: XR Hip Complete LT DATE OF EXAM: 11/28/2022 CLINICAL HISTORY: pain TECHNIQUE: AP and frogleg views of the left hip are obtained. COMPARISON: None. FINDINGS: There is no acute fracture/dislocation evident. The joint space appears within normal li mits. The overlying soft tissue appears unremarkable. IMPRESSION: 1. There is no acute fracture or dislocation.ICD 10 NO FRACTURE, INITIAL EVALUATION
== END | disposition home or self-care (01) ==
LOC: RADXRYALE 16:06
PROVIDERS: ATTEND Physician Assistant Medical
DX: J44.9 Chronic obstructive pulmonary disease, unspecified (principal); J15.9 Unspecified bacterial pneumonia; M25.552 Pain in left hip
CPT/HCPCS: 71046; 73502

== ENCOUNTER 2022-12-27 14:05 | Inpatient (IN) | payer MEDICARE ==
[2022-12-27] MEDS ORDERED: HYDROmorphone 0.5 MG/0.5 ML SYRINGE IVP STA (14:17)
--- NOTE | 2022-12-27 14:24 | ED ---
General Adult HPI - General Chief complaint: Fall Stated complaint: Fall at home Time Seen by Provider: 12/27/22 14:08 Source: patient, EMS, RN notes reviewed Mode of arrival: EMS Limitations: no limitations - History of Present Illness Initial comments: Patient is a pleasant 82-year-old female presenting to the emergency Department with fall. Incident occurred just prior to arrival. Patient states she tripped going up steps and landed directly on her left leg. Patient has severe discomfort there. Discomfort improved with medication by EMS as well as traction by EMS. Patient denies any head injury or other area of concern. No neck or back pain. No chest pain or abdominal pain. No dyspnea. Patient was unable to walk secondary to pain. No history of similar symptoms previous. - Related Data Home Medications Medication Instructions Recorded Confirmed Omeprazole 40 mg PO DAILY 08/24/17 11/14/22 ALPRAZolam [Xanax] 0.5 mg PO BID PRN 05/21/21 11/14/22 FLUoxetine HCL [PROzac] 40 mg PO DAILY 05/21/21 11/14/22 Acetaminophen Tab [Tylenol] 500 mg PO Q6HR PRN 10/30/21 11/14/22 busPIRone HCl [Buspar] 5 mg PO BID 10/30/21 11/14/22 Propranolol [Inderal] 40 mg PO BID 03/15/22 11/14/22 Albuterol Nebulized [Ventolin 2.5 mg INHALATION RT-QID 07/27/22 11/14/22 Nebulized] Aspirin 81 mg PO DAILY 07/27/22 11/14/22 Cetirizine HCl [Zyrtec] 10 mg PO DAILY 07/27/22 11/14/22 Cholecalciferol [Vitamin D3 (25 25 mcg PO DAILY 07/27/22 11/14/22 Mcg = 1000 Iu)] Diclofenac Sodium Gel [Voltaren 2 gm TOPICAL QID PRN 07/27/22 11/14/22 Gel] Fluticasone/Umeclidin/Vilanter 1 puff INHALATION RT-DAILY 11/14/22 11/14/22 [Trelegy Ellipta 100-62.5-25] Previous Rx's Medication Instructions Recorded Albuterol Inhaler [Ventolin Hfa 2 puff INHALATION RT-Q4H PRN #1 07/01/22 Inhaler] each Cefdinir 300 mg PO Q12HR #4 cap 11/18/22 predniSONE [Deltasone] 40 mg PO DAILY #6 tab 11/18/22 Allergies Allergy/AdvReac Type Severity Reaction Status Date / Time budesonide [From Symbicort] Allergy Unknown Verified 12/27/22 14:11 formoterol [From Symbicort] Allergy Unknown Verified 12/27/22 14:11 gabapentin Allergy Unknown Verified 12/27/22 14:11 ibuprofen Allergy Unknown Verified 12/27/22 14:11 Iodinated Contrast Media Allergy Unknown Verified 12/27/22 14:11 [Iodinated Contrast- Oral and IV Dye] iodine Allergy Rash/Hives Verified 12/27/22 14:11 Sulfa (Sulfonamide Allergy Rash/Hives Verified 12/27/22 14:11 Antibiotics) topiramate [From Topamax] Allergy Unknown Verified 12/27/22 14:11 lorazepam [From Ativan] AdvReac Hallucinati Verified 12/27/22 14:11 ons prednisone AdvReac dizziness Verified 12/27/22 14:11 zolpidem tartrate AdvReac Hallucinati Verified 12/27/22 14:11 [From Ambien] ons Review of Systems ROS Statement: Those systems with pertinent positive or pertinent negative responses have been documented in the HPI. ROS Other: All systems not noted in ROS Statement are negative. Constitutional: Denies: fever Eyes: Denies: eye pain ENT: Denies: ear pain Respiratory: Denies: cough Cardiovascular: Denies: chest pain Endocrine: Denies: fatigue Gastrointestinal: Denies: abdominal pain Musculoskeletal: Reports: as per HPI. Denies: back pain Neurological: Denies: headache, weakness Past Medical History Past Medical History: Atrial Fibrillation, Asthma, COPD, CVA/TIA, Eye Disorder, GERD/Reflux, Hyperlipidemia, Pneumonia Additional Past Medical History / Comment(s): Chronic atrial fibrillation per PMH but pt has no recollection of this, bronchiectasis, essential tremors, previous TIA, chronic lumbar back pain, past 6 months R shoulder/cervical pain, balance difficulty with falls, occasional low urinary output and uses lasix prn for this, bilateral varicose veins, dysphagia-able to take pills one at a time with water, small hiatal hernia, restless leg syndrome, seasonal ALLERGIES, History of Any Multi-Drug Resistant Organisms: None Reported Past Surgical History: Hysterectomy Additional Past Surgical History / Comment(s): 11/27/15 EGD with bx, bilateral cataracts removed with lens implants, colonoscopy with 1 benign polypectomy. Past Anesthesia/Blood Transfusion Reactions: No Reported Reaction Past Psychological History: Anxiety, Depression Smoking Status: Current some day smoker Past Alcohol Use History: None Reported Past Drug Use History: None Reported - Past Family History Father Family Medical History: Cancer Additional Family Medical History / Comment(s): Pt thinks father might have from stomach cancer. She was 2 yrs old when he . Sister(s) Family Medical History: Cancer Additional Family Medical History / Comment(s): Half sister with brain cancer. Mother Family Medical History: Dementia Additional Family Medical History / Comment(s): Mother had gallstones and a partial thyroidectomy for noncancerous reasons. General Exam Limitations: no limitations General appearance: alert, in no apparent distress Head exam: Present: atraumatic, normocephalic Eye exam: Present: normal appearance Neck exam: Present: normal inspection. Absent: tenderness Respiratory exam: Present: normal lung sounds bilaterally Cardiovascular Exam: Present: regular rate, normal rhythm Expanded Peripheral pulses: 2+: Posterior Tibialis (R), Posterior Tibialis (L) (Confirmed with Doppler) GI/Abdominal exam: Present: soft. Absent: tenderness Extremities exam: Present: tenderness (Left thigh is swollen and tender, mid thigh) Neurological exam: Present: alert, other (Distally all shown these are neurovascularly intact.). Absent: motor sensory deficit Psychiatric exam: Present: normal affect, normal mood Skin exam: Present: normal color Course Vital Signs 12/27/22 12/27/22 14:06 15:27 Temperature 97 F L Pulse Rate 60 64 Respiratory 18 18 Rate Blood Pressure 160/81 134/72 O2 Sat by Pulse 100 99 Oximetry EKG Findings - EKG Results: EKG: interpreted by ERMD, sinus rhythm, normal axis, normal QRS, normal ST/T Medical Decision Making - Medical Decision Making Was pt. sent in by a medical professional or institution (, PA, SECURITY PROGRAM MANAGER, urgent care, hospital, or fdc...) When possible be specific @ -No Did you speak to anyone other than the patient for history (EMS, parent, family, police, friend...)? What history was obtained from this source @ -EMS reports majority of history. Did you review nursing and triage notes (agree or disagree)? Why? @ -I reviewed and agree with nursing and triage notes Were old charts reviewed (outside hosp., previous admission, EMS record, old EKG, old radiological studies, urgent care reports/EKG's, fdc records)? Report findings @ -No old charts were reviewed Differential Diagnosis (chest pain, altered mental status, abdominal pain women, abdominal pain men, vaginal bleeding, weakness, fever, dyspnea, syncope, headache, dizziness, GI bleed, back pain, seizure, CVA, palpatations, mental health, musculoskeletal)? @ -Differential Musculoskeletal Muscular strain, contusion, ligament sprain, fracture, arthritis, septic arthritis, bursitis, cellulitis, muscle spasm, nerve compression, DVT, arterial occlusion, herpes zoster, electrolyte abnormality, tumor.... This is not meant to be in all inclusive list EKG interpreted by me (3pts min.). @ -As above X-rays interpreted by me (1pt min.). @ -Chest x-ray and cervical spine x-ray do not reveal acute abnormality. X-ray pelvis and left femur shows a proximal femur fracture that appears to be extending to the femoral neck. Oblique. CT interpreted by me (1pt min.). @ -None done U/S interpreted by me (1pt. min.). @ -None done What testing was considered but not performed or refused? (CT, X-rays, U/S, labs)? Why? @ -None What meds were considered but not given or refused? Why? @ -None Did you discuss the management of the patient with other professionals (professionals i.e. , PA, SECURITY PROGRAM MANAGER, lab, RT, psych nurse, social media campaign manager, plastics scientist, teacher, founder and chief executive officer, counter caser)? Give summary @ -Case was discussed with practitioner Tran, who will admit covering for Dr. Dave Was smoking cessation discussed for >3mins.? @ -No Was critical care preformed (if so, how long)? @ -No Were there social determinants of health that impacted care today? How? (Homelessness, low income, unemployed, alcoholism, drug addiction, transportation, low edu. Level, literacy, decrease access to med. care, longterm, rehab)? @ -No Was there de-escalation of care discussed even if they declined (Discuss DNR or withdrawal of care, Hospice)? DNR status @ -No What co-morbidities impacted this encounter? (DM, HTN, Smoking, COPD, CAD, Cancer, CVA, ARF, Chemo, Hep., AIDS, mental health diagnosis, sleep apnea, morbid obesity)? @ -None Was patient admitted / discharged? Hospital course, mention meds given and route, prescriptions, significant lab abnormalities, going to OR and other pertinent info. @ -Patient reevaluated. Patient updated on results and plan. Patient will be admitted for orthopedics. Undiagnosed new problem with uncertain prognosis? @ -No Drug Therapy requiring intensive monitoring for toxicity (Heparin, Nitro, Insulin, Cardizem)? @ -No Were any procedures done? @ -No Diagnosis/symptom? @ -Proximal femur fracture left Acute, or Chronic, or Acute on Chronic? @ -Acute Uncomplicated (without systemic symptoms) or Complicated (systemic symptoms)? @ -default Side effects of treatment? @ -No Exacerbation, Progression, or Severe Exacerbation? @ -No Poses a threat to life or bodily function? How? (Chest pain, [place], ME, pneumonia, PE, COPD, DKA, ARF, appy, cholecystitis, CVA, Diverticulitis, Homicidal, Suicidal, threat to staff... and all critical care pts) @ -No - Lab Data Result diagrams: 12/27/22 14:20 12/27/22 14:20 Lab Results 12/27/22 12/27/22 12/27/22 Range/Units 14:20 14:20 14:20 WBC 8.8 (3.8-10.6) k/uL RBC 3.89 (3.80-5.40) m/uL Hgb 12.1 (11.4-16.0) gm/dL Hct 35.8 (34.0-46.0) % MCV 92.0 (80.0-100.0) fL MCH 31.2 (25.0-35.0) pg MCHC 33.9 (31.0-37.0) g/dL RDW 13.4 (11.5-15.5) % Plt Count 282 (150-450) k/uL MPV 7.7 Neutrophils % 71 % Lymphocytes % 17 % Monocytes % 7 % Eosinophils % 3 % Basophils % 0 % Neutrophils # 6.2 (1.3-7.7) k/uL Lymphocytes # 1.5 (1.0-4.8) k/uL Monocytes # 0.6 (0-1.0) k/uL Eosinophils # 0.2 (0-0.7) k/uL Basophils # 0.0 (0-0.2) k/uL PT 9.9 (9.0-12.0) sec INR 0.9 (<1.2) APTT 22.6 (22.0-30.0) sec Sodium 136 L (137-145) mmol/L Potassium 4.8 (3.5-5.1) mmol/L Chloride 105 (98-107) mmol/L Carbon Dioxide 29 (22-30) mmol/L Anion Gap 2 mmol/L BUN 19 H (7-17) mg/dL Creatinine 0.77 (0.52-1.04) mg/dL Est GFR (CKD-EPI)AfAm 83 (>60 ml/min/1.73 sqM) Est GFR (CKD-EPI)NonAf 72 (>60 ml/min/1.73 sqM) Glucose 88 (74-99) mg/dL Calcium 8.6 (8.4-10.2) mg/dL Total Bilirubin 0.4 (0.2-1.3) mg/dL AST 29 (14-36) U/L ALT 18 (4-34) U/L Alkaline Phosphatase 60 (38-126) U/L Total Protein 5.6 L (6.3-8.2) g/dL Albumin 3.2 L (3.5-5.0) g/dL Disposition Clinical Impression: Fracture, proximal femur Disposition: ADMITTED IP TO THIS HOSP Is patient prescribed a controlled substance at d/c from ED?: No Referrals: Pablo De La Garza DO [Primary Care Provider] - 1-2 days Time of Disposition: 16:27
[2022-12-27 14:28] LABS: Basophils % (A) 0 %; Eosinophils # (A) 0.2 k/uL (0-0.7); Eosinophils % (A) 3 %; HCT 35.8 % (34.0-46.0); HGB 12.1 gm/dL (11.4-16.0); Lymphocytes # (A) 1.5 k/uL (1.0-4.8); Lymphocytes % (A) 17 %; MCH 31.2 pg (25.0-35.0); MCHC 33.9 g/dL (31.0-37.0); Mean Platelet Volume 7.7; Monocytes # (A) 0.6 k/uL (0-1.0); Monocytes % (A) 7 %; Neutrophils # (A) 6.2 k/uL (1.3-7.7); Neutrophils % (A) 71 %; Platelet Count 282 k/uL (150-450); RBC 3.89 m/uL (3.80-5.40); RDW 13.4 % (11.5-15.5); WBC 8.8 k/uL (3.8-10.6)
[2022-12-27 14:52] LABS: INR 0.9 (<1.2); Partial Thromboplastin Time 22.6 sec (22.0-30.0); Prothrombin Time 9.9 sec (9.0-12.0)
[2022-12-27 15:04] LABS: ALT 18 U/L (4-34); AST 29 U/L (14-36); African American GFR (CKD) 83 (>60 ml/min/1.73 sqM); Albumin 3.2 g/dL (3.5-5.0); Alkaline Phosphatase 60 U/L (38-126); Anion Gap 2 mmol/L; Blood Urea Nitrogen 19 mg/dL (7-17); Calcium 8.6 mg/dL (8.4-10.2); Carbon Dioxide 29 mmol/L (22-30); Chloride 105 mmol/L (98-107); Glucose 88 mg/dL (74-99); Non-African American GFR(CKD) 72 (>60 ml/min/1.73 sqM); Sodium 136 mmol/L (137-145); Total Bilirubin 0.4 mg/dL (0.2-1.3); Total Protein 5.6 g/dL (6.3-8.2)
[2022-12-27 15:05] LABS: Potassium 4.8 mmol/L (3.5-5.1)
--- NOTE | 2022-12-27 15:40 | XR ---
EXAMINATION TYPE: XR chest 1V portable DATE OF EXAM: 12/27/2022 Comparison: 11/28/2022, 12/05/2021 Clinical History: 82-year-old female pain after trauma Findings: Ongoing marked asymmetric elevation right hemidiaphragm. Mild patchy opacity at the right base. Heart mildly enlarged. Hyperinflation left hemithorax consolidation or pleural effusion. Impression: COPD and mild cardiomegaly. Ongoing volume loss and marked elevation right hemidiaphragm. Consider a fluoroscopic sniff test to exclude hemidiaphragmatic paralysis.
--- NOTE | 2022-12-27 15:41 | XR ---
EXAMINATION TYPE: XR cervical spine trauma, 7 views DATE OF EXAM: 12/27/2022 COMPARISON: NONE HISTORY: 82-year-old female with pain after fall TECHNIQUE: 7 views FINDINGS: No predental space widening or prevertebral soft tissue swelling. Mild to moderate degenerative disc disease throughout with scattered facet and uncovertebral joint arthropathy. Trace grade 1 retrolisth esis C5-C6 and C6-C7. Otherwise, alignment appears maintained. Normal odontoid view. IMPRESSION: [id number] spondylotic change. Degenerative grade retrolisthesis C5-C6 and C6-C7. No prevertebr al soft tissue swelling or acute fracture seen.
--- NOTE | 2022-12-27 15:45 | XR ---
EXAMINATION TYPE: XR pelvis AP view, XR femur 2 views LT DATE OF EXAM: 12/27/2022 Comparison: Left hip 11/28/2022 Clinical History: 82-year-old female with pain after fall, Trauma Findings: Pelvis: Bowel content obscures most of the sacrum. Right hip joint appears intact. Left femur: There is an oblique fracture of the proximal left femur which extends from the medial bas e of the femoral neck and down and lateral to the lateral femoral cortex of the proximal shaft. There is rotational allowing for medial displacement of 3 cm inferiorly. No additional acute fracture of t he more mid to distal left femur are seen. Impression (pelvis and left femur): Oblique fracture proximal left femur extending from the medial base of the femoral neck down to the l ateral femoral cortex of the proximal shaft.
[2022-12-27] MEDS ORDERED: NALOXONE 0.4 MG/ML 1 ML VIAL IV PRN (16:28)
[2022-12-27] MEDS ORDERED: ACETAMINOPHEN TAB 325 MG TAB PO PRN (16:28)
[2022-12-27] MEDS: SODIUM CHLORIDE 0.9% 1,000 ML IV SCH (16:58)
[2022-12-27] MEDS: HYDROmorphone 0.5 MG/0.5 ML SYRINGE IVP PRN (16:58)
--- NOTE | 2022-12-27 18:11 | P.HPIM ---
History of Present Illness H&P Date: 12/27/22 Chief Complaint: mechanical fall, hip fracture 82 year old woman with history of dementia, COPD on 2 L, essential tremors, history of CVA, chronic back pain, hyperlipidemia presented after mechanical fall resulted in right femur fracture. Patient has caregivers at home who apparently had gone to get some food for the patient, and when they came back if on the patient and the garage complaining of right leg pain. They called emergency medical services and brought the patient into the hospital. This history is provided by ER provider signout as well as patient's daughter who is at bedside, patient is demented and cannot provide meaningful history. Patient's review of systems cannot be reliably completed due to underlying dementia and agitation at the time of my evaluation. In the emergency room, patient was afebrile, 160/81, heart rate 60, 100% on 2 L nasal cannula. CBC is unremarkable. Basic metabolic panel shows mildly elevated BUN 19, otherwise unremarkable. Albumin is 3.2 on liver function test. Coags were unremarkable. EKG shows normal sinus rhythm with right axis deviation, otherwise unremarkable. Chest x-ray is a poor study due to rotation, appears to have a normal size heart, hyperinflated lungs. Cervical spine x-ray shows mild to moderate spondylytic change as well as degenerative grade retrolisthesis of C5 to C6 and C6 to C7. Femur and pelvis x-ray showed oblique fracture of the proximal left femur extending into the medial base of the femoral neck [place] lateral femoral cortex of the proximal shaft. Case was discussed with emergency room provider decision was made to admit the patient to the hospital for further evaluation of the fracture. Review of systems as per HPI Gen: in no apparent distress, resting comfortably in bed Eyes: PERRL, no scleral injection or icterus HENT: normocephalic, atraumatic, good hearing acuity, moist mucous membranes Neck: no tracheal deviation, full range of motion Resp: good air exchange, breathing comfortably with no accessory muscle use, no tactile fremitus CVS: good distal perfusion x 4, no pitting edema GI: soft, NTTP, ND, no hepatosplenomegaly : no suprapubic tenderness, no CVAT, lira catheter is present MSK: no clubbing, no cyanosis, no noted contractures of extremities Skin: no noted rashes, petechiae; temperature of skin is appropriate Neuro: moving all extremities without signs of weakness, CN II-XII intact Labs and imaging as above Assessment: Preoperative clearance Left femur fracture Mechanical fall Hyperactive delirium in the setting of dementia COPD without exacerbation, chronic respiratory failure requiring 2 L of nasal cannula History of CVA Chronic back pain Hyperlipidemia Plan: Vital signs reviewed and noted in the HPI Lab work reviewed and noted in the HPI EKG and CXR are personally interpreted and noted in the HPI Imaging reviewed as per HPI Case was discussed with the Emergency Room provider and decision was made to admit the patient for femur fracture Pain control: Dilaudid 1 mg every 3 hours when necessary, Dilaudid 0.5 mg every 3 hours when necessary, Tylenol 650 mg every 6 hours. Bowel regimen: Senokot-S 1 tab twice a day Orthopedic surgery on consult for operative management Patient has no elevated risk for an intermediate risk surgery, however, no modifiable risk factors at this time, okay to proceed to surgery without further negative testing Past Medical History Past Medical History: Atrial Fibrillation, Asthma, COPD, CVA/TIA, Eye Disorder, GERD/Reflux, Hyperlipidemia, Pneumonia Additional Past Medical History / Comment(s): Chronic atrial fibrillation per PMH but pt has no recollection of this, bronchiectasis, essential tremors, previous TIA, chronic lumbar back pain, past 6 months R shoulder/cervical pain, balance difficulty with falls, occasional low urinary output and uses lasix prn for this, bilateral varicose veins, dysphagia-able to take pills one at a time with water, small hiatal hernia, restless leg syndrome, seasonal ALLERGIES, History of Any Multi-Drug Resistant Organisms: None Reported Past Surgical History: Hysterectomy Additional Past Surgical History / Comment(s): 11/27/15 EGD with bx, bilateral cataracts removed with lens implants, colonoscopy with 1 benign polypectomy. Past Anesthesia/Blood Transfusion Reactions: No Reported Reaction Past Psychological History: Anxiety, Depression Smoking Status: Current some day smoker Past Alcohol Use History: None Reported Past Drug Use History: None Reported - Past Family History Father Family Medical History: Cancer Additional Family Medical History / Comment(s): Pt thinks father might have from stomach cancer. She was 2 yrs old when he . Sister(s) Family Medical History: Cancer Additional Family Medical History / Comment(s): Half sister with brain cancer. Mother Family Medical History: Dementia Additional Family Medical History / Comment(s): Mother had gallstones and a partial thyroidectomy for noncancerous reasons. Medications and Allergies Home Medications Medication Instructions Recorded Confirmed Type Omeprazole 40 mg PO DAILY 08/24/17 11/14/22 History ALPRAZolam [Xanax] 0.5 mg PO BID PRN 05/21/21 11/14/22 History FLUoxetine HCL [PROzac] 40 mg PO DAILY 05/21/21 11/14/22 History Acetaminophen Tab [Tylenol] 500 mg PO Q6HR PRN 10/30/21 11/14/22 History busPIRone HCl [Buspar] 5 mg PO BID 10/30/21 11/14/22 History Propranolol [Inderal] 40 mg PO BID 03/15/22 11/14/22 History Albuterol Inhaler [Ventolin Hfa 2 puff INHALATION RT-Q4H PRN #1 07/01/22 11/14/22 Rx Inhaler] each Albuterol Nebulized [Ventolin 2.5 mg INHALATION RT-QID 07/27/22 11/14/22 History Nebulized] Aspirin 81 mg PO DAILY 07/27/22 11/14/22 History Cetirizine HCl [Zyrtec] 10 mg PO DAILY 07/27/22 11/14/22 History Cholecalciferol [Vitamin D3 (25 25 mcg PO DAILY 07/27/22 11/14/22 History Mcg = 1000 Iu)] Diclofenac Sodium Gel [Voltaren 2 gm TOPICAL QID PRN 07/27/22 11/14/22 History Gel] Fluticasone/Umeclidin/Vilanter 1 puff INHALATION RT-DAILY 11/14/22 11/14/22 History [Trelegy Ellipta 100-62.5-25] Cefdinir 300 mg PO Q12HR #4 cap 11/18/22 Rx predniSONE [Deltasone] 40 mg PO DAILY #6 tab 11/18/22 Rx Allergies Allergy/AdvReac Type Severity Reaction Status Date / Time budesonide [From Symbicort] Allergy Unknown Verified 12/27/22 14:11 formoterol [From Symbicort] Allergy Unknown Verified 12/27/22 14:11 gabapentin Allergy Unknown Verified 12/27/22 14:11 ibuprofen Allergy Unknown Verified 12/27/22 14:11 Iodinated Contrast Media Allergy Unknown Verified 12/27/22 14:11 [Iodinated Contrast- Oral and IV Dye] iodine Allergy Rash/Hives Verified 12/27/22 14:11 Sulfa (Sulfonamide Allergy Rash/Hives Verified 12/27/22 14:11 Antibiotics) topiramate [From Topamax] Allergy Unknown Verified 12/27/22 14:11 lorazepam [From Ativan] AdvReac Hallucinati Verified 12/27/22 14:11 ons prednisone AdvReac dizziness Verified 12/27/22 14:11 zolpidem tartrate AdvReac Hallucinati Verified 12/27/22 14:11 [From Ambien] ons Physical Exam Osteopathic Statement: *. No significant issues noted on an osteopathic structural exam other than those noted in the History and Physical/Consult. Vitals: Vital Signs Temp Pulse Resp BP Pulse Ox 12/27/22 15:27 64 18 134/72 99 12/27/22 14:06 97 F L 60 18 160/81 100 Intake and Output 12/27/22 12/27/22 12/27/22 06:59 14:59 22:59 Output Total 60 Balance -60 Output: Urine 60 Straight 60 Other: Weight 49.895 kg Results CBC & Chem 7: 12/27/22 14:20 12/27/22 14:20 Labs: Abnormal Lab Results - Last 24 Hours (Table) 12/27/22 Range/Units 14:20 Sodium 136 L (137-145) mmol/L BUN 19 H (7-17) mg/dL Total Protein 5.6 L (6.3-8.2) g/dL Albumin 3.2 L (3.5-5.0) g/dL
[2022-12-27] MEDS: HYDROmorphone 1 MG/ML 1 ML SYRINGE IVP PRN (20:35)
[2022-12-27] MEDS: ALBUTEROL NEBULIZED 2.5 MG/3 ML INHALATION SCH (21:23)
[2022-12-27] MEDS: PROPRANOLOL 40 MG TAB PO SCH (22:31)
[2022-12-27] MEDS: busPIRone HCl 5 MG TAB PO SCH (22:31)
[2022-12-28] MEDS: HYDROmorphone 1 MG/ML 1 ML SYRINGE IVP PRN ×4 (01:37→21:06)
[2022-12-28] MEDS: PANTOPRAZOLE 40 MG TABLET PO SCH (06:52)
[2022-12-28] MEDS: LORATADINE 10 MG TAB PO SCH (08:13)
[2022-12-28] MEDS: FLUoxetine HCL 20 MG CAP PO SCH (08:13)
[2022-12-28] MEDS: MELOXICAM 7.5 MG TAB PO SCH (08:13)
[2022-12-28] MEDS: busPIRone HCl 5 MG TAB PO SCH ×2 (08:13→20:01)
[2022-12-28] MEDS: PROPRANOLOL 40 MG TAB PO SCH (08:13)
[2022-12-28] MEDS: CHOLECALCIFEROL 25 MCG (1000 IU) TABLET PO SCH (08:13)
[2022-12-28] MEDS: ALBUTEROL NEBULIZED 2.5 MG/3 ML INHALATION SCH ×4 (08:54→20:55)
--- NOTE | 2022-12-28 10:29 | P.CNOR ---
History of Present Illness - HPI Consult date: 12/28/22 History of present illness: This is an 82-year-old female who is admitted for left femur fracture. Patient is seen and evaluated at bedside today. Patient states that she fell at home when she was headed to the garage to get a drink on 12/27/2022. Patient states that she does live at home with a relative and has caregivers present a few hours per day. Patient was brought to the emergency room via EMS and was placed in traction. X-rays revealed fracture of the left femur. Patient's past medical history is significant for atrial fibrillation, asthma, COPD, CVA, GERD, hyperlipidemia, essential tremors poor balance and dysphagia. Patient denies any fever/chills, numbness, weakness, abdominal pain, shortness of breath or chest pain. Review of Systems See HPI. Past Medical History Past Medical History: Atrial Fibrillation, Asthma, COPD, CVA/TIA, Eye Disorder, GERD/Reflux, Hyperlipidemia, Pneumonia Additional Past Medical History / Comment(s): Chronic atrial fibrillation per PMH but pt has no recollection of this, bronchiectasis, essential tremors, previous TIA, chronic lumbar back pain, past 6 months R shoulder/cervical pain, balance difficulty with falls, occasional low urinary output and uses lasix prn for this, bilateral varicose veins, dysphagia-able to take pills one at a time with water, small hiatal hernia, restless leg syndrome, seasonal ALLERGIES, History of Any Multi-Drug Resistant Organisms: None Reported Past Surgical History: Hysterectomy Additional Past Surgical History / Comment(s): 11/27/15 EGD with bx, bilateral cataracts removed with lens implants, colonoscopy with 1 benign polypectomy. Past Anesthesia/Blood Transfusion Reactions: No Reported Reaction Past Psychological History: Anxiety, Depression Additional Psychological History / Comment(s): Pt's son, Sonu lives with her. She uses a cane or walker to ambulate. Smoking Status: Current some day smoker Past Alcohol Use History: None Reported Additional Past Alcohol Use History / Comment(s): Pt states she started smoking in her early 20's. She quit for several yrs, during her pregnancies and when her children were young. She smokes a cigeratte once in awhile when stressed Past Drug Use History: None Reported - Past Family History Father Family Medical History: Cancer Additional Family Medical History / Comment(s): Pt thinks father might have from stomach cancer. She was 2 yrs old when he . Sister(s) Family Medical History: Cancer Additional Family Medical History / Comment(s): Half sister with brain cancer. Mother Family Medical History: Dementia Additional Family Medical History / Comment(s): Mother had gallstones and a partial thyroidectomy for noncancerous reasons. Medications and Allergies Home Medications Medication Instructions Recorded Confirmed Type Omeprazole 40 mg PO DAILY 08/24/17 12/27/22 History ALPRAZolam [Xanax] 0.5 mg PO BID PRN 05/21/21 12/27/22 History FLUoxetine HCL [PROzac] 40 mg PO DAILY 05/21/21 12/27/22 History Acetaminophen Tab [Tylenol] 500 mg PO Q6HR PRN 10/30/21 12/27/22 History busPIRone HCl [Buspar] 5 mg PO BID 10/30/21 12/27/22 History Propranolol [Inderal] 40 mg PO BID 03/15/22 12/27/22 History Albuterol Inhaler [Ventolin Hfa 2 puff INHALATION RT-Q4H PRN #1 07/01/22 12/27/22 Rx Inhaler] each Albuterol Nebulized [Ventolin 2.5 mg INHALATION RT-QID 07/27/22 12/27/22 History Nebulized] Aspirin 81 mg PO DAILY 07/27/22 12/27/22 History Cetirizine HCl [Zyrtec] 10 mg PO DAILY 07/27/22 12/27/22 History Cholecalciferol [Vitamin D3 (25 25 mcg PO DAILY 07/27/22 12/27/22 History Mcg = 1000 Iu)] Diclofenac Sodium Gel [Voltaren 2 gm TOPICAL QID PRN 07/27/22 12/27/22 History Gel] Fluticasone/Umeclidin/Vilanter 1 puff INHALATION RT-DAILY 11/14/22 12/27/22 History [Trelegy Ellipta 100-62.5-25] Meloxicam [Mobic] 15 mg PO DAILY 12/27/22 12/27/22 History Allergies Allergy/AdvReac Type Severity Reaction Status Date / Time budesonide [From Symbicort] Allergy Unknown Verified 12/27/22 19:02 formoterol [From Symbicort] Allergy Unknown Verified 12/27/22 19:02 gabapentin Allergy Unknown Verified 12/27/22 19:02 ibuprofen Allergy Unknown Verified 12/27/22 19:02 Iodinated Contrast Media Allergy Unknown Verified 12/27/22 19:02 [Iodinated Contrast- Oral and IV Dye] iodine Allergy Rash/Hives Verified 12/27/22 19:02 Sulfa (Sulfonamide Allergy Rash/Hives Verified 12/27/22 19:02 Antibiotics) topiramate [From Topamax] Allergy Unknown Verified 12/27/22 19:02 lorazepam [From Ativan] AdvReac Hallucinati Verified 12/27/22 19:02 ons prednisone AdvReac dizziness Verified 12/27/22 19:02 zolpidem tartrate AdvReac Hallucinati Verified 12/27/22 19:02 [From Ambien] ons Physical Examination On exam patient is resting comfortably in bed in no acute distress. Patient is alert and oriented 3. Left lower extremity is in traction. Patient is able to wiggle the toes of the left foot. The left lower extremity is warm and well perfused. Sensation intact to the left lower extremity. Neurovascular status and circulatory status are intact. Results X-rays of the left femur dated 12/27/2022 are reviewed revealing oblique fracture of the proximal femur. CT of the left hip is pending. - Labs Labs: Abnormal Lab Results - Last 24 Hours (Table) 12/27/22 Range/Units 14:20 Sodium 136 L (137-145) mmol/L BUN 19 H (7-17) mg/dL Total Protein 5.6 L (6.3-8.2) g/dL Albumin 3.2 L (3.5-5.0) g/dL H & H 12/27/22 Range/Units 14:20 Hgb 12.1 (11.4-16.0) gm/dL Hct 35.8 (34.0-46.0) % Coagulation 12/27/22 Range/Units 14:20 INR 0.9 (<1.2) Result Diagrams: 12/27/22 14:20 12/27/22 14:20 Assessment and Plan (1) Fall Current Visit: Yes Status: Acute Code(s): W19.XXXA - UNSPECIFIED FALL, INITIAL ENCOUNTER SNOMED Code(s): 0758975 (2) Fracture, proximal femur Current Visit: Yes Status: Acute Code(s): S72.009A - FRACTURE OF UNSP PART OF NECK OF UNSP FEMUR, INIT SNOMED Code(s): 053155632 Plan: 1. Patient is to be NPO today. 2. Appreciate input from internal medicine. 3. Planning for ORIF of the left femur with insertion of an intratrochanteric nail later today pending medical clearance and patient consent. The patient's daughter is present at bedside today and all questions were answered to the best of my ability.
--- NOTE | 2022-12-28 10:50 | P.PN ---
Subjective Progress Note Date: 12/28/22 Pt is much less agitated today, pain is controlled. Pending ORIF per ortho surgery. Gen: awake, alert HEENT: normocephalic, atraumatic, good hearing acuity, moist mucous membranes Resp: good air exchange, breathing comfortably with no accessory muscle use CVS: good distal perfusion x 4, GI: soft, NTTP, ND : no SPT, no CVAT, lira catheter is present MSK: no pitting edema, no clubbing Neuro: non-focal, moving all extremities Psych: cooperative, euthymic mood Hospital Course: 82 year old woman with history of dementia, COPD on 2 L, essential tremors, history of CVA, chronic back pain, hyperlipidemia presented after mechanical fall resulted in right femur fracture. In the emergency room, patient was afebrile, 160/81, heart rate 60, 100% on 2 L nasal cannula. CBC is unremarkable. Basic metabolic panel shows mildly elevated BUN 19, otherwise unremarkable. Albumin is 3.2 on liver function test. Coags were unremarkable. EKG shows normal sinus rhythm with right axis deviation, otherwise unremarkable. Chest x-ray is a poor study due to rotation, appears to have a normal size heart, hyperinflated lungs. Cervical spine x-ray shows mild to moderate spondylytic change as well as degenerative grade retrolisthesis of C5 to C6 and C6 to C7. Femur and pelvis x-ray showed oblique fracture of the proximal left femur extending into the medial base of the femoral neck [place] lateral fe moral cortex of the proximal shaft. Case was discussed with emergency room provider decision was made to admit the patient to the hospital for further evaluation of the fracture. Assessment: Preoperative clearance Left femur fracture Mechanical fall Hyperactive delirium in the setting of dementia COPD without exacerbation, chronic respiratory failure requiring 2 L of nasal cannula History of CVA Chronic back pain Hyperlipidemia Plan: Vital: Afebrile, 108/64, heart rate 93, 95% on 2 L of nasal cannula Lab: Nothing new to review, ordered CBC, basic metabolic panel, magnesium per tomorrow Images: Nothing new to review Consultation: Orthopedic surgery note reviewed, plan is for ORIF today, patient is nothing by mouth and medically cleared Pain control: Dilaudid 1 mg every 3 hours when necessary, Dilaudid 0.5 mg every 3 hours when necessary, Tylenol 650 mg every 6 hours. Bowel regimen: Senokot-S 1 tab twice a day Orthopedic surgery on consult for operative management Patient has no elevated risk for an intermediate risk surgery, however, no modifiable risk factors at this time, okay to proceed to surgery without further negative testing Objective - Vital Signs Vital signs: Vital Signs Temp 99.0 F 12/28/22 07:53 Pulse 93 12/28/22 09:04 Resp 16 12/28/22 07:53 BP 108/64 12/28/22 07:53 Pulse Ox 99 12/28/22 08:58 FiO2 Intake & Output 12/27/22 12/28/22 12/28/22 18:59 06:59 18:59 Output Total 60 Balance -60 Weight 49.895 kg 49.895 kg Output: Urine 60 Straight 60 Other: Voiding Method Indwelling Catheter Indwelling Catheter # Voids 0 - Labs CBC & Chem 7: 12/27/22 14:20 12/27/22 14:20 Labs: Abnormal Lab Results - Last 24 Hours (Table) 12/27/22 Range/Units 14:20 Sodium 136 L (137-145) mmol/L BUN 19 H (7-17) mg/dL Total Protein 5.6 L (6.3-8.2) g/dL Albumin 3.2 L (3.5-5.0) g/dL
[2022-12-28] MEDS ORDERED: ONDANSETRON 4 MG/2 ML VIAL IVP PRN (11:57)
[2022-12-28] MEDS: SODIUM CHLORIDE 0.9% 1,000 ML IV SCH (15:16)
[2022-12-28] MEDS ORDERED: LACTATED RINGERS 1,000 ML IV ONE ×2 (16:37→17:23)
[2022-12-28] MEDS ORDERED: METOPROLOL TARTRATE 5 MG/5 ML VIAL IVP ONE ×2 (16:37→16:45)
[2022-12-28] MEDS ORDERED: HYDROmorphone 1 MG/ML 1 ML SYRINGE IVP ONE (16:47)
[2022-12-28] MEDS ORDERED: DILTIAZEM 5 MG/ML 5 ML VIAL IVP STA (16:48)
[2022-12-28] MEDS: METOPROLOL TARTRATE 25 MG TAB PO SCH ×2 (18:36→22:26)
--- NOTE | 2022-12-28 18:51 | P.PN ---
Progress Note - Text Progress Note Date: 12/28/22 I was called the patient bedside due to atrial fibrillation with RVR chest before patient's surgery while she was in preop. Patient appeared to have hyperactive delirium with heart rates in the 180s to 200s, pressures are stable in the 140s / 80s. Patient had no complaints of dyspnea, however, she remains floridly confused from her underlying dementia and cannot provide a reliable review of systems or participate in interview. She did repeatedly say that she had pain in her left lower extremity. Gen: awake, alert, hyperactive confusion HEENT: normocephalic, atraumatic, good hearing acuity, moist mucous membranes Resp: good air exchange, breathing comfortably with no accessory muscle use CVS: good distal perfusion x 4, : lira catheter is present MSK: left lower extremity in traction Assessment: Paroxysmal atrial fibrillation with RVR Uncontrolled left lower extremity pain Possibility of benzodiazepine withdrawal Plan: At bedside, I obtained an EKG which demonstrated atrial fibrillation with RVR rates 180. I proceeded to push 5 mg of IV metoprolol, heart rates improved to 140-160, pressure decreased to 108/70. I pushed another 5 mg of IV metoprolol as well as 1 mg of Dilaudid for pain control and heart rates improved to sinus rhythm with rates between 88-95, blood pressures were between 85-90/45-50. Patient had very good radial pulses and was easy to arouse. I proceeded to discuss his case with anesthesiology and orthopedic surgery at bedside, we agreed to defer the case until the following morning while stabilizing patient's heart rate, blood pressure overnight. Patient's daughter present at the bedside and this was discussed with her as well. Further discussion with nursing regarding placing patient in escalated level of care to the cardiac selective unit with telemetry. I proceeded to order 0.5 mg Ativan every 3 hours when necessary for agitation, 25 mg by mouth twice a day of metoprolol for rate control; I also ordered a set of labs - CBC, basic metabolic panel, magnesium, lactic acid, troponin, BNP. Lastly, I also ordered an echocardiogram. I spent 45 minutes of critical care time with this patient
[2022-12-28] MEDS: DILTIAZEM 125 MG in SODIUM CHLORIDE 0.9% 100 ML IV SCH (19:57)
[2022-12-28 20:01] LABS: HCT 31.9 % (34.0-46.0); HGB 10.5 gm/dL (11.4-16.0); MCH 31.4 pg (25.0-35.0); MCHC 32.9 g/dL (31.0-37.0); MCV 95.3 fL (80.0-100.0); Mean Platelet Volume 7.3; Platelet Count 215 k/uL (150-450); RBC 3.35 m/uL (3.80-5.40); RDW 13.4 % (11.5-15.5); WBC 11.2 k/uL (3.8-10.6)
[2022-12-28 20:15] LABS: African American GFR (CKD) 76 (>60 ml/min/1.73 sqM); Anion Gap 2 mmol/L; Blood Urea Nitrogen 25 mg/dL (7-17); Calcium 8.4 mg/dL (8.4-10.2); Carbon Dioxide 33 mmol/L (22-30); Chloride 102 mmol/L (98-107); Glucose 113 mg/dL (74-99); Magnesium 2.2 mg/dL (1.6-2.3); Non-African American GFR(CKD) 66 (>60 ml/min/1.73 sqM); Potassium 4.7 mmol/L (3.5-5.1); Sodium 137 mmol/L (137-145)
[2022-12-28 20:23] LABS: NT-Pro-B-Type Natriuretic Pept 454 pg/mL
[2022-12-28] MEDS ORDERED: METOPROLOL TARTRATE 25 MG TAB PO SCH (21:00)
[2022-12-29] MEDS: HYDROmorphone 1 MG/ML 1 ML SYRINGE IVP PRN ×2 (01:37→05:23)
[2022-12-29 08:43] LABS: Basophils % (A) 0 %; Eosinophils # (A) 0.1 k/uL (0-0.7); Eosinophils % (A) 1 %; HCT 30.1 % (34.0-46.0); HGB 9.8 gm/dL (11.4-16.0); Lymphocytes # (A) 1.1 k/uL (1.0-4.8); Lymphocytes % (A) 11 %; MCHC 32.7 g/dL (31.0-37.0); MCV 94.8 fL (80.0-100.0); Mean Platelet Volume 8.3; Monocytes # (A) 0.9 k/uL (0-1.0); Monocytes % (A) 10 %; Neutrophils % (A) 75 %; Platelet Count 183 k/uL (150-450); RBC 3.18 m/uL (3.80-5.40); RDW 13.5 % (11.5-15.5); WBC 9.3 k/uL (3.8-10.6)
[2022-12-29] MEDS: ALBUTEROL NEBULIZED 2.5 MG/3 ML INHALATION SCH ×4 (08:53→20:01)
[2022-12-29] MEDS: FLUoxetine HCL 20 MG CAP PO SCH ×2 (09:00→10:59)
[2022-12-29] MEDS: MELOXICAM 7.5 MG TAB PO SCH (09:01)
[2022-12-29] MEDS: LORATADINE 10 MG TAB PO SCH ×2 (09:01→10:59)
[2022-12-29] MEDS: PANTOPRAZOLE 40 MG TABLET PO SCH (09:01)
[2022-12-29] MEDS: METOPROLOL TARTRATE 25 MG TAB PO SCH ×2 (09:01→20:34)
[2022-12-29] MEDS: busPIRone HCl 5 MG TAB PO SCH ×3 (09:02→20:29)
[2022-12-29] MEDS: CHOLECALCIFEROL 25 MCG (1000 IU) TABLET PO SCH (09:02)
[2022-12-29 09:21] LABS: African American GFR (CKD) 88 (>60 ml/min/1.73 sqM); Anion Gap 1 mmol/L; Blood Urea Nitrogen 23 mg/dL (7-17); Calcium 8.4 mg/dL (8.4-10.2); Carbon Dioxide 33 mmol/L (22-30); Chloride 103 mmol/L (98-107); Glucose 104 mg/dL (74-99); Magnesium 2.1 mg/dL (1.6-2.3); Non-African American GFR(CKD) 76 (>60 ml/min/1.73 sqM); Potassium 4.7 mmol/L (3.5-5.1); Sodium 137 mmol/L (137-145)
[2022-12-29] MEDS: LORazepam 2 MG/ML INJ IV PRN (10:01)
--- NOTE | 2022-12-29 10:16 | P.PN ---
Subjective Progress Note Date: 12/29/22 Pt is much less agitated today, pain is controlled. Pending ORIF per ortho surgery. Gen: awake, alert HEENT: normocephalic, atraumatic, good hearing acuity, moist mucous membranes Resp: good air exchange, breathing comfortably with no accessory muscle use CVS: good distal perfusion x 4, GI: soft, NTTP, ND : no SPT, no CVAT, lira catheter is present MSK: no pitting edema, no clubbing Neuro: non-focal, moving all extremities Psych: cooperative, euthymic mood Hospital Course: 82 year old woman with history of dementia, COPD on 2 L, essential tremors, history of CVA, chronic back pain, hyperlipidemia presented after mechanical fall resulted in right femur fracture. In the emergency room, patient was afebrile, 160/81, heart rate 60, 100% on 2 L nasal cannula. CBC is unremarkable. Basic metabolic panel shows mildly elevated BUN 19, otherwise unremarkable. Albumin is 3.2 on liver function test. Coags were unremarkable. EKG shows normal sinus rhythm with right axis deviation, otherwise unremarkable. Chest x-ray is a poor study due to rotation, appears to have a normal size heart, hyperinflated lungs. Cervical spine x-ray shows mild to moderate spondylytic change as well as degenerative grade retrolisthesis of C5 to C6 and C6 to C7. Femur and pelvis x-ray showed oblique fracture of the proximal left femur extending into the medial base of the femoral neck [place] lateral fe moral cortex of the proximal shaft. Case was discussed with emergency room provider decision was made to admit the patient to the hospital for further evaluation of the fracture. On 12/28, patient had atrial fibrillation with RVR before patient's while she was in preop. Patient appeared to have hyperactive delirium with heart rates in the 180s to 200s, pressures are stable in the 140s / 80s. EKG which demonstrated atrial fibrillation with RVR rates 180. She rec'd 5 mg of IV metoprolol, heart rates improved to 140-160, pressure decreased to 108/70. After another 5 mg of IV metoprolol as well as 1 mg of Dilaudid for pain control and heart rates improved to sinus rhythm with rates between 88-95, blood pressures were between 85-90/45-50. Case discussed with anesthesiology and orthopedic surgery at bedside, we agreed to defer the surgery until the following morning while stabilizing patient's heart rate, blood pressure overnight. Patient's care was escalated to cardiac selective unit with telemetry. Gen: awake, alert, hyperactive confusion HEENT: normocephalic, atraumatic, good hearing acuity, moist mucous membranes Resp: good air exchange, breathing comfortably with no accessory muscle use CVS: good distal perfusion x 4, : lira catheter is present MSK: left lower extremity in traction Assessment: Paroxysmal atrial fibrillation with RVR Acute Blood Loss Anemia Preoperative clearance Left femur fracture Mechanical fall Hyperactive delirium in the setting of dementia COPD without exacerbation, chronic respiratory failure requiring 2 L of nasal cannula History of CVA Chronic back pain Hyperlipidemia Plan: Vital: Afebrile, 123/58, heart rate 78, 99% on 3 L of nasal cannula Lab: CBC demonstrates strep of hemoglobin down to 9.8 from 12.1 on admission. Basic metabolic panel shows CO2 of 33, BUN of 23. Troponin was less than 0.012, BNP was 454. Images: Nothing new to review Consultation: No new workforce management consultant notes to review Ordered CBC, basic metabolic panel, magnesium for tomorrow Pain control: Dilaudid 1 mg every 3 hours when necessary, Dilaudid 0.5 mg every 3 hours when necessary, Tylenol 650 mg every 6 hours. Agitation: Ativan 0.5 mg every 3 hours when necessary Rate control: Metoprolol 25 mg by mouth twice a day, will add diltiazem drip if heart rates around control perioperatively again Bowel regimen: Senokot-S 1 tab twice a day Orthopedic surgery on consult for operative management Patient has no elevated risk for an intermediate risk surgery, however, no modifiable risk factors at this time, okay to proceed to surgery without further negative testing Objective - Vital Signs Vital signs: Vital Signs Temp 98.4 F 12/29/22 08:00 Pulse 77 12/29/22 09:09 Resp 16 12/29/22 08:00 BP 123/58 12/29/22 08:00 Pulse Ox 97 12/29/22 08:00 FiO2 99 12/29/22 08:57 Intake & Output 12/28/22 12/29/22 12/29/22 18:59 06:59 18:59 Intake Total 1000 Output Total 500 300 Balance 500 -300 Weight 49.895 kg Intake: IV 1000 Output: Urine 500 300 Other: Voiding Method Indwelling Catheter Indwelling Catheter - Labs CBC & Chem 7: 12/29/22 07:15 12/29/22 07:15 Labs: Abnormal Lab Results - Last 24 Hours (Table) 12/28/22 12/28/22 12/29/22 Range/Units 19:22 19:22 07:15 WBC 11.2 H (3.8-10.6) k/uL RBC 3.35 L 3.18 L (3.80-5.40) m/uL Hgb 10.5 L 9.8 L (11.4-16.0) gm/dL Hct 31.9 L 30.1 L (34.0-46.0) % Carbon Dioxide 33 H (22-30) mmol/L BUN 25 H (7-17) mg/dL Glucose 113 H (74-99) mg/dL 12/29/22 Range/Units 07:15 WBC (3.8-10.6) k/uL RBC (3.80-5.40) m/uL Hgb (11.4-16.0) gm/dL Hct (34.0-46.0) % Carbon Dioxide 33 H (22-30) mmol/L BUN 23 H (7-17) mg/dL Glucose 104 H (74-99) mg/dL
[2022-12-29] MEDS: HYDROmorphone 0.5 MG/0.5 ML SYRINGE IVP PRN ×4 (12:07→23:53)
[2022-12-29] MEDS ORDERED: IV FLUID CONTINUATION 600 ML IV ONE (15:23)
[2022-12-29] MEDS ORDERED: ONDANSETRON 4 MG/2 ML VIAL IVP PRN (16:04)
[2022-12-29] MEDS ORDERED: MAGNESIUM HYDROXIDE 2,400 MG/30 ML CUP PO PRN (16:04)
[2022-12-29] MEDS ORDERED: HYDROmorphone 0.5 MG/0.5 ML SYRINGE IVP PRN ×2 (16:04)
[2022-12-29] MEDS ORDERED: NALOXONE 0.4 MG/ML 1 ML VIAL IV PRN (16:04)
[2022-12-29] MEDS ORDERED: ONDANSETRON 4 MG/2 ML VIAL IVP ONE (16:08)
[2022-12-29] MEDS ORDERED: DEXAMETHASONE SOD PHOSPHATE 4 MG/ML 1 ML VIAL IVP ONE (16:09)
[2022-12-29] MEDS ORDERED: KETAMINE 10 MG/ML 20 ML VIAL ONE (16:26)
[2022-12-29] MEDS ORDERED: ceFAZolin 1,000 MG in SODIUM CHLORIDE 0.9% 1,000 ML IRRIGATION ONE (16:26)
[2022-12-29] MEDS ORDERED: PROPOFOL 10 MG/ML 20 ML VIAL IV ONE (16:26)
[2022-12-29] MEDS ORDERED: PHENYLEPHRINE-0.9% NACL SYG 1,000 MCG/10 ML SYRINGE ONE (16:26)
[2022-12-29] MEDS ORDERED: LACTATED RINGERS 1,000 ML IV ONE (18:00)
--- NOTE | 2022-12-29 18:40 | P.OP ---
Date of Procedure: 12/29/22 Preoperative Diagnosis: Proximal third left femur fracture Postoperative Diagnosis: Proximal third left spiral femur fracture Procedure(s) Performed: Open reduction and internal fixation left proximal third femur fracture with trochanteric nailing Implants: & Nephew [employer] Intertan nail 125 left , 11.5 mm x 36 cm. & Nephew [employer] Intertan integrated-interlocking lag screw, 90 mm lag screw, 85 mm compression screw. & Nephew [employer] L-P screw, 5.0 mm x 37.5 mm, 5.0 x 42.5. Accord cables 3 Anesthesia: GETA Surgeon: Pablo Dave Political Scientist #1: Tran Bautista Estimated Blood Loss (ml): 600 Pathology: none sent Condition: stable Disposition: PACU Indications for Procedure: This is an 88-year-old female that sustained a fall at home and presented to the emergency room with a closed spiral proximal third femur fracture. Yesterday the surgery was attempted, but the patient developed tachycardia in the preoperative holding area and the case was delayed until today. Her age is currently under control. After discussing the surgical nonsurgical treatment options with her family at length I've recommended a reduction and internal fixation of her left proximal one third spiral femur fracture and trochanteric nailing. Informed consent was obtained. Operative Findings: The operative findings are consistent with a proximal third spiral femur fractu re left femur. Description of Procedure: The patient was seen in the preoperative area, consent was reviewed, and the operative site was marked with a skin marker. The surgical procedure was discussed at length with both the patient and the family at the bedside. All questions were answered to the best of my ability. The patient was brought to the operating room and placed on the fracture table. Anesthesia was administered by the anesthesia department. 2 g of Ancef were administered intravenously. The patient was placed supine on the fracture table with the fractured extremity in traction boot. The other extremity was placed in a well leg spears and the bony prominences were well padded. A universal timeout was then performed which confirmed the patient's name, surgical site, ALLERGIES, and consent. Fracture reduction was performed with a traction and abduction maneuver which was confirmed with fluoroscopy, both AP and lateral views.. After reduction was performed, the extremity was then prepped with ChloraPrep solution and draped in the usual sterile fashion. Fluoroscopy was utilized to find the proximal third femur fracture and a skin incision was made centered over the fracture site. Incision was carried down through the fascia to the vastus lateralis to the fracture site. Fracture hematoma was evacuated. Next, using fluoroscopy and 2 large bone clamps, the fracture was provisionally reduced. 3 cables were then placed and tightened which afforded excellent reduction and fixation of the proximal third spiral femur fracture. Utilizing fluoroscopy to identify the tip of the greater trochanter, a 3 cm longitudinal incision was made just proximal to the greater trochanter. Incision was carried through the fascia to the tip of the greater trochanter. Utilizing a curved awl, the entry point was created at the tip of the greater trochanter and centralized in the AP and lateral planes. These locations were confirmed by fluoroscopy. A guidewire was then inserted down the medullary canal. Sequentially reaming of the femur was performed to 13 mm distally and 17 mm proximally with the channel reamer. After reaming, the nail size was then measured, and the appropriate size nail was inserted over the guidewire. The nail was inserted to the appropriate depth and the guidewire was removed. Placement of the papo was confirmed with both AP and lateral fluoroscopic views. The lag screw drill sleeve was placed in the jig and a small skin incision was made on the lateral aspect of the leg and the lag screw drill sleeve was locked into the guide. The 3.2 mm guide pin sleeve was inserted through the lag screw drill sleeve down to bone. A 3.2 mm distally threaded guidewire was inserted through the guide pin sleeve. The guidewire was inserted in the desired position in the femoral head, both anterior and posterior. The lag screw length cage was inserted over the guidepin to the back of the lag screw drill sleeve. Lag screw length was then measured from the cage. Next, the 7.0 mm compression screw starter drill was inserted in the lag screw drill sleeve beneath the guidepin. The compression screw starter drill was advanced under power until it abutted the back and of the lag screw drill sleeve. The 7.0 mm compression screw drill was inserted through the lag screw drill sleeve into the hole created by the compression screw starter drill. This was advanced under fluoroscopy to a depth 5 mm less and the measurement taken for the guidepin. The compression screw drill was removed and the antirotation bar was inserted into the same hole. The 3.2 mm guide pin sleeve was then removed from the drill guide. The lag screw drill was then inserted to a depth that was measured by the lag screw gauge. This was done under fluoroscopy. The lag screw was inserted over the guidewire to the appropriate depth using fluoroscopy. Traction was then released. The antirotation bar was then removed and the compression screw was advanced through the lag screw drill sleeve beneath the lag screw. This was advanced to the appropriate compression was achieved. The targeting guide was then removed and attention was then directed distally. Using fluoroscopy to lateral to medial locking screws then placed through the distal nail. Distal hole was then drilled with a 4.0 mm drill and measured to the appropriate depth. Final fluoroscopic x-rays were obtained. The wounds were then irrigated copiously with saline solution. Fascia was closed with 0-Vicryl. Subcutaneous tissues were closed with 2-0 Vicryl and the skin was closed with wilfred. Sterile dressings were applied. The patient was transported to the recovery room in stable condition. The life science research assistant JEAN CLAUDE Llanos was required due the complexity of surgery the need for skilled anesthesia assistant for positioning draping retraction and fracture reduction.
--- NOTE | 2022-12-29 19:20 | FL ---
Intraoperative/procedural fluoroscopic services were provided. Total fluoroscopy time is 2 minutes 17 seconds with a total of 4 submitted images to PACS. Please see the operative/procedural note for fur ther details. DAP: 2.68 mGym2
[2022-12-29] MEDS: ALBUTEROL NEBULIZED 2.5 MG/3 ML INHALATION PRN (19:23)
--- NOTE | 2022-12-29 19:47 | XR ---
EXAMINATION TYPE: XR Femur LT 1 View DATE OF EXAM: 12/29/2022 7:20 PM CLINICAL INDICATION:Female, 82 years old with history of Status post hip surgery, assess surgical ali gnment; COMPARISON: 12/27/2022 TECHNIQUE: The left femur was examined in Frontal and lateral projections. FINDINGS: Post fixation changes to the left femur. Hardware appears intact. Subjacent lucencies and skin wilfred are present. Fracture appears in appropriate alignment. No new fractures visualized. No evidence of acute osseous pathology, joint dislocation, or soft tissue swelling IMPRESSION: Post fixation changes without evidence of new fracture. Hardware appears in appropriate position.
[2022-12-29] MEDS: SODIUM CHLORIDE 0.9% 1,000 ML IV SCH (20:28)
[2022-12-29] MEDS: SENNOSIDES-DOCUSATE SODIUM 1 EACH TAB PO SCH (20:35)
[2022-12-30] MEDS: HYDROmorphone 0.5 MG/0.5 ML SYRINGE IVP PRN ×3 (04:56→14:41)
[2022-12-30] MEDS: PANTOPRAZOLE 40 MG TABLET PO SCH (06:11)
[2022-12-30] MEDS: ALBUTEROL NEBULIZED 2.5 MG/3 ML INHALATION SCH ×4 (08:53→21:12)
[2022-12-30] MEDS: METOPROLOL TARTRATE 25 MG TAB PO SCH (09:06)
[2022-12-30] MEDS: busPIRone HCl 5 MG TAB PO SCH ×2 (09:07→21:28)
[2022-12-30] MEDS: FLUoxetine HCL 20 MG CAP PO SCH (09:07)
[2022-12-30] MEDS: LORATADINE 10 MG TAB PO SCH (09:07)
[2022-12-30] MEDS: SODIUM CHLORIDE 0.9% 1,000 ML IV SCH (09:07)
[2022-12-30] MEDS: CHOLECALCIFEROL 25 MCG (1000 IU) TABLET PO SCH (09:13)
[2022-12-30 09:51] LABS: Basophils % (A) 0 %; Eosinophils % (A) 0 %; HCT 23.6 % (34.0-46.0); Lymphocytes # (A) 0.7 k/uL (1.0-4.8); Lymphocytes % (A) 8 %; MCH 30.6 pg (25.0-35.0); MCHC 32.4 g/dL (31.0-37.0); MCV 94.5 fL (80.0-100.0); Mean Platelet Volume 8.1; Monocytes # (A) 1.1 k/uL (0-1.0); Monocytes % (A) 13 %; Neutrophils # (A) 5.9 k/uL (1.3-7.7); Neutrophils % (A) 74 %; Platelet Count 163 k/uL (150-450); RDW 13.1 % (11.5-15.5)
[2022-12-30 09:53] LABS: HGB 7.7 gm/dL (11.4-16.0)
[2022-12-30 10:00] LABS: African American GFR (CKD) 88 (>60 ml/min/1.73 sqM); Anion Gap 1 mmol/L; Blood Urea Nitrogen 31 mg/dL (7-17); Calcium 8.3 mg/dL (8.4-10.2); Carbon Dioxide 31 mmol/L (22-30); Chloride 104 mmol/L (98-107); Glucose 130 mg/dL (74-99); Magnesium 2.1 mg/dL (1.6-2.3); Non-African American GFR(CKD) 76 (>60 ml/min/1.73 sqM); Potassium 4.7 mmol/L (3.5-5.1); Sodium 136 mmol/L (137-145)
--- NOTE | 2022-12-30 11:07 | P.PN ---
Subjective Progress Note Date: 12/30/22 Pt is much less agitated today, pain is better controlled. Status post ORIF per ortho surgery. Gen: awake, alert HEENT: normocephalic, atraumatic, good hearing acuity, moist mucous membranes Resp: good air exchange, breathing comfortably with no accessory muscle use CVS: good distal perfusion x 4, GI: soft, NTTP, ND : no SPT, no CVAT, lira catheter is present MSK: no pitting edema, no clubbing Neuro: non-focal, moving all extremities Psych: cooperative, euthymic mood Hospital Course: 82 year old woman with history of dementia, COPD on 2 L, essential tremors, history of CVA, chronic back pain, hyperlipidemia presented after mechanical fall resulted in right femur fracture. In the emergency room, patient was afebrile, 160/81, heart rate 60, 100% on 2 L nasal cannula. CBC is unremarkable. Basic metabolic panel shows mildly elevated BUN 19, otherwise unremarkable. Albumin is 3.2 on liver function test. Coags were unremarkable. EKG shows normal sinus rhythm with right axis deviation, otherwise unremarkable. Chest x-ray is a poor study due to rotation, appears to have a normal size heart, hyperinflated lungs. Cervical spine x-ray shows mild to moderate spondylytic change as well as degenerative grade retrolisthesis of C5 to C6 and C6 to C7. Femur and pelvis x-ray showed oblique fracture of the proximal left femur extending into the medial base of the femoral neck [place] lateral femoral cortex of the proximal shaft. Case was discussed with emergency room provider decision was made to admit the patient to the hospital for further evaluation of the fracture. On 12/28, patient had atrial fibrillation with RVR before patient's while she was in preop. Patient appeared to have hyperactive delirium with heart rates in the 180s to 200s, pressures are stable in the 140s / 80s. EKG which demonstrated atrial fibrillation with RVR rates 180. She rec'd 5 mg of IV metoprolol, heart rates improved to 140-160, pressure decreased to 108/70. After another 5 mg of IV metoprolol as well as 1 mg of Dilaudid for pain control and heart rates improved to sinus rhythm with rates between 88-95, blood pressures were between 85-90/45-50. Case discussed with anesthesiology and orthopedic surgery at bedside, we agreed to defer the surgery until the following morning while stabilizing patient's heart rate, blood pressure overnight. Patient's care was escalated to cardiac selective unit with telemetry. Gen: awake, alert, hyperactive confusion HEENT: normocephalic, atraumatic, good hearing acuity, moist mucous membranes Resp: good air exchange, breathing comfortably with no accessory muscle use CVS: good distal perfusion x 4, : lira catheter is present MSK: left lower extremity in traction Assessment: Paroxysmal atrial fibrillation with RVR Acute Blood Loss Anemia Preoperative clearance Left femur fracture Mechanical fall Hyperactive delirium in the setting of dementia COPD without exacerbation, chronic respiratory failure requiring 2 L of nasal cannula History of CVA Chronic back pain Hyperlipidemia Plan: Vital: Afebrile, 123/58, heart rate 78, 99% on 3 L of nasal cannula Lab: CBC demonstrates strep of hemoglobin down to 9.8 from 12.1 on admission. Basic metabolic panel shows CO2 of 33, BUN of 23. Troponin was less than 0.012, BNP was 454. Images: Nothing new to review Consultation: No new commercial sales consultant notes to review Ordered CBC, basic metabolic panel, magnesium for tomorrow Pain control: Dilaudid 1 mg every 3 hours when necessary, Dilaudid 0.5 mg every 3 hours when necessary, Tylenol 650 mg every 6 hours. Agitation: Ativan 0.5 mg every 3 hours when necessary Rate control: Metoprolol 25 mg by mouth twice a day, will add diltiazem drip if heart rates around control perioperatively again Bowel regimen: Senokot-S 1 tab twice a day Orthopedic surgery on consult for operative management Patient has no elevated risk for an intermediate risk surgery, however, no modifiable risk factors at this time, okay to proceed to surgery without further negative testing Objective - Vital Signs Vital signs: Vital Signs Temp 98.3 F 12/30/22 09:29 Pulse 94 12/30/22 09:38 Resp 18 12/30/22 09:38 BP 104/61 12/30/22 09:29 Pulse Ox 96 12/30/22 09:29 FiO2 99 12/29/22 08:57 Intake & Output 12/29/22 12/30/22 12/30/22 18:59 06:59 18:59 Intake Total 1900 50 Output Total 800 450 300 Balance 1100 -400 -300 Intake: IV 1500 50 Intake, IV Titration 400 Amount Lactated Ringers 1,000 ml 400 @ 0 mls/hr IV .[facility] Rx#:[id number] Output: Urine 200 450 300 Estimated Blood Loss 600 Other: Voiding Method Indwelling Catheter Indwelling Catheter Indwelling Catheter - Labs CBC & Chem 7: 12/30/22 09:09 12/30/22 09:09 Labs: Abnormal Lab Results - Last 24 Hours (Table) 12/30/22 12/30/22 Range/Units 09: 09:09 RBC 2.50 L (3.80-5.40) m/uL Hgb 7.7 L D (11.4-16.0) gm/dL Hct 23.6 L (34.0-46.0) % Lymphocytes # 0.7 L (1.0-4.8) k/uL Monocytes # 1.1 H (0-1.0) k/uL Sodium 136 L (137-145) mmol/L Carbon Dioxide 31 H (22-30) mmol/L BUN 31 H (7-17) mg/dL Glucose 130 H (74-99) mg/dL Calcium 8.3 L (8.4-10.2) mg/dL
--- NOTE | 2022-12-30 11:12 | P.PN ---
Subjective Progress Note Date: 12/30/22 Principal diagnosis: Left proximal femur/hip fracture. Status post long IT nail with cables left hip. This is an 88-year-old female that sustained a fall at home and presented to the emergency room with a closed spiral proximal third femur fracture. After discussing the surgical nonsurgical treatment options with her family at length I've recommended a reduction and internal fixation of her left proximal one third spiral femur fracture and trochanteric nailing. Informed consent was obtained. 12/30/2022: Today is postoperative day #1 status post long IT nail with cables to the left femur. The patient is stable from an orthopedic standpoint. She continues to have confusion secondary to her dementia. There are no new complaints or concerns today. Vital signs are stable. Objective - Vital Signs Vital signs: Vital Signs Temp 98.3 F 12/30/22 09:29 Pulse 94 12/30/22 09:38 Resp 18 12/30/22 09:38 BP 104/61 12/30/22 09:29 Pulse Ox 96 12/30/22 09:29 FiO2 99 12/29/22 08:57 Intake & Output 12/29/22 12/30/22 12/30/22 18:59 06:59 18:59 Intake Total 1900 50 Output Total 800 450 300 Balance 1100 -400 -300 Intake: IV 1500 50 Intake, IV Titration 400 Amount Lactated Ringers 1,000 ml 400 @ 0 mls/hr IV [facility][id number] Output: Urine 200 450 300 Estimated Blood Loss 600 Other: Voiding Method Indwelling Catheter Indwelling Catheter Indwelling Catheter - Exam This is a pleasantly confused 82-year-old female in no acute distress. Exam of the left leg reveals dressing is clean, dry and intact. She has full foot and ankle motion without difficulty or pain. Pedal pulse is +1/4. Neurovascular status to the lower extremity is intact. - Labs CBC & Chem 7: 12/30/22 09:09 12/30/22 09:09 Labs: Abnormal Lab Results - Last 24 Hours (Table) 12/30/22 12/30/22 Range/Units 09:09 09:09 RBC 2.50 L (3.80-5.40) m/uL Hgb 7.7 L D (11.4-16.0) gm/dL Hct 23.6 L (34.0-46.0) % Lymphocytes # 0.7 L (1.0-4.8) k/uL Monocytes # 1.1 H (0-1.0) k/uL Sodium 136 L (137-145) mmol/L Carbon Dioxide 31 H (22-30) mmol/L BUN 31 H (7-17) mg/dL Glucose 130 H (74-99) mg/dL Calcium 8.3 L (8.4-10.2) mg/dL Assessment and Plan (1) Fall Current Visit: Yes Status: Acute Code(s): W19.XXXA - UNSPECIFIED FALL, INITIAL ENCOUNTER SNOMED Code(s): 1542526 (2) Fracture, proximal femur Current Visit: Yes Status: Acute Code(s): S72.009A - FRACTURE OF UNSP PART OF NECK OF UNSP FEMUR, INIT SNOMED Code(s): 095183297 Plan: The clinical findings are discussed with the patient and nursing staff. She may begin with physical therapy today. She is nonweightbearing to the left lower extremity with walker. She may be discharged to inpatient rehab when cleared medically.
[2022-12-30] MEDS ORDERED: DILTIAZEM 125 MG in SODIUM CHLORIDE 0.9% 100 ML IV SCH (14:30)
[2022-12-30] MEDS ORDERED: DEXTROSE 5% IN WATER 100 ML with AMIODARONE 150 MG IV ONE (14:59)
[2022-12-30] MEDS ORDERED: AMIODARONE 360 MG in DEXTROSE 5% IN WATER 200 ML IV ONE ×2 (15:00)
[2022-12-30] MEDS: LACTATED RINGERS 1,000 ML IV SCH (15:17)
--- NOTE | 2022-12-30 15:57 | US ---
EXAMINATION TYPE: US extremity nonvasculr [facility] DATE OF EXAM: 12/30/2022 COMPARISON: NONE CLINICAL INDICATION: Female, 82 years old with history of r/o hematoma; post femur fx surgery, swolle n left thigh, drop in hemoglobin, assess for hematoma TECHNIQUE: Left thigh soft tissue scan FINDINGS: Welfare Case Worker notes: soft tissue skin adjacent to left thigh bandage demonstrates no signs o f hematoma. IMPRESSION: Targeted scanning around the patient's left thigh at the site of dressing shows no discre te hematoma by ultrasound.
--- NOTE | 2022-12-30 17:44 | P.PN ---
Progress Note - Text Progress Note Date: 12/30/22 Rapid response note Called the patient bedside due to low blood pressure as well as elevated heart rates. Patient was noted to have a akanksha blood pressure of 68/47, heart rates in the 170s in atrial fibrillation with RVR and telemetry. Patient appeared pale, but awake and interactive. Perfusing her 4 extremities well, bounding pulses in the radials. Patient's lab work reviewed and noted to have drop in hemoglobin to 7.7 from her max of 12.1 on admission. Assessment: Paroxysmal atrial fibrillation with RVR Acute blood loss anemia Hypotension, hypovolemic Plan: Patient had another pressure bolus of 1000 mL of lactated Ringer's I ordered 2 units of packed red blood cells I placed an ultrasound-guided IV, 20-gauge, at bedside Consideration of amiodarone for elevated heart rates, however, patient returned to normal sinus rhythm with administration of IV fluids Consideration of Cardizem drip, however, this was again deferred due to return to normal sinus rhythm with improvement of blood pressure Cardiology was consulted I spent 35 minutes of critical care time with this patient today after my previous focused visit
[2022-12-30] MEDS: SENNOSIDES-DOCUSATE SODIUM 1 EACH TAB PO SCH (21:28)
[2022-12-31] MEDS: METOPROLOL TARTRATE 25 MG TAB PO SCH ×2 (04:43→08:22)
[2022-12-31] MEDS: PANTOPRAZOLE 40 MG TABLET PO SCH ×2 (07:05→07:11)
[2022-12-31 08:16] LABS: HCT 26.8 % (34.0-46.0); MCH 31.3 pg (25.0-35.0); MCHC 33.7 g/dL (31.0-37.0); MCV 92.9 fL (80.0-100.0); Mean Platelet Volume 8.2; Platelet Count 132 k/uL (150-450); RBC 2.88 m/uL (3.80-5.40); RDW 14.1 % (11.5-15.5); WBC 6.1 k/uL (3.8-10.6)
[2022-12-31] MEDS: busPIRone HCl 5 MG TAB PO SCH (08:22)
[2022-12-31] MEDS: LORATADINE 10 MG TAB PO SCH (08:22)
[2022-12-31] MEDS: CHOLECALCIFEROL 25 MCG (1000 IU) TABLET PO SCH (08:22)
[2022-12-31] MEDS: FLUoxetine HCL 20 MG CAP PO SCH (08:22)
[2022-12-31] MEDS: HYDROmorphone 0.5 MG/0.5 ML SYRINGE IVP PRN ×3 (08:25→19:52)
[2022-12-31 08:32] LABS: African American GFR (CKD) >90 (>60 ml/min/1.73 sqM); Anion Gap -1 mmol/L; Blood Urea Nitrogen 26 mg/dL (7-17); Calcium 7.8 mg/dL (8.4-10.2); Carbon Dioxide 31 mmol/L (22-30); Chloride 107 mmol/L (98-107); Glucose 142 mg/dL (74-99); Non-African American GFR(CKD) 85 (>60 ml/min/1.73 sqM); Potassium 3.7 mmol/L (3.5-5.1); Sodium 137 mmol/L (137-145)
[2022-12-31] MEDS: ALBUTEROL NEBULIZED 2.5 MG/3 ML INHALATION SCH ×4 (09:13→20:39)
--- NOTE | 2022-12-31 11:13 | P.PN ---
Progress Note - Text Progress Note Date: 12/31/22 Orthopedics: History of present illness: Patient is a pleasant 82-year-old female with dementia who is seen in the bedside for further evaluation of her left lower extremity. She is status post left hip long IT nail with cables to the left femur following a closed spiral proximal third femur fracture. Nursing states patient did remove her dressing overnight. Dressing has been reapplied. There is no active drainage from the surgical site. Patient is not complaining of any significant pain at her left lower extremity. She is strict nonweightbearing on the left lower extremity. She does have a blister at her left heel that is closed following Francois's traction. Her left heel is currently elevated off of the bed. Patient is lately remaining in the hospital over the weekend with plans to discharge to a rehabilitation facility this coming 01/02/2023, if cleared. Patient is admitted to medicine and continues to be seen and examined for her other medical diagnoses including paroxysmal atrial fibrillation with RVR, acute blood loss anemia, and hypertension. Patient did receive 2 units of packed red blood cells yesterday. Patient's hemoglobin is currently 9.0. Her WBC is 6.1. Physical Exam Intramedullary Rodding for Intertrochanteric Fracture: Status post surgical day number 2 Patient is examined lying in bed Patient is awake and alert, and oriented 3 Vital signs stable Good chest excursion with deep inspiration and expiration; patient currently on O2 nasal cannula Abdomen soft nontender No signs or symptoms of DVT; no calf pain Lower extremity cuffs in place bilaterally Dressing of the hip is clean, dry, and intact; no erythema, purulence, or signs of infection No pain with palpation over the surgical sites Full range of motion of ankles bilaterally Dorsiflexion, plantarflexion, and extensor hallucis longus positive sustained bilaterally Neurovascularly intact bilateral lower extremities Capillary refill less than 2 seconds bilateral lower extremities Assessment: Status post open reduction internal fixation of left proximal one third spiral femur fracture with trochanteric nailing Left hip and femur pain Status post fall Dementia Paroxysmal atrial fibrillation with RVR Hypertension Acute blood loss anemia Plan: 1. Patient to remain nonweightbearing on the left lower extremity; patient may work with physical therapy to increase mobility and ambulation 2. Keep dressing over the left hip clean, dry, and intact 3. Discontinue [place] catheter when patient is able to increase mobility and ambulation 4. Continue pain control with oral tramadol and IV Dilaudid as needed for pain control 5. Medicine will manage anticoagulation this patient has history of atrial fibrillation with RVR 6. Medicine to continue following the patient for their other medical diagnosis 7. We'll continue to follow the patient closely; depending on the patient's progress, we may plan for discharge as early as this coming Monday to a rehabilitation facility 8. Patient can follow-up with Dr. Pablo Dave at [facility] in 2-3 weeks following discharge
[2022-12-31] MEDS: SODIUM CHLORIDE 0.9% 1,000 ML IV SCH (11:19)
--- NOTE | 2022-12-31 12:03 | P.PN ---
Subjective Progress Note Date: 12/31/22 Pt is doing well today. Pain is controlled, HRs are controlled. Hgb responded appropriately to blood transufsion. Gen: awake, alert HEENT: normocephalic, atraumatic, good hearing acuity, moist mucous membranes Resp: good air exchange, breathing comfortably with no accessory muscle use CVS: good distal perfusion x 4, GI: soft, NTTP, ND : no SPT, no CVAT, lira catheter is present MSK: no pitting edema, no clubbing Neuro: non-focal, moving all extremities Psych: cooperative, euthymic mood Hospital Course: 82 year old woman with history of dementia, COPD on 2 L, essential tremors, history of CVA, chronic back pain, hyperlipidemia presented after mechanical fall resulted in right femur fracture. In the emergency room, patient was afebrile, 160/81, heart rate 60, 100% on 2 L nasal cannula. CBC is unremarkable. Basic metabolic panel shows mildly elevated BUN 19, otherwise unremarkable. Albumin is 3.2 on liver function test. Coags were unremarkable. EKG shows normal sinus rhythm with right axis deviation, otherwise unremarkable. Chest x-ray is a poor study due to rotation, appears to have a normal size heart, hyperinflated lungs. Cervical spine x-ray shows mild to moderate spond ylytic change as well as degenerative grade retrolisthesis of C5 to C6 and C6 to C7. Femur and pelvis x-ray showed oblique fracture of the proximal left femur extending into the medial base of the femoral neck [place] lateral femoral cortex of the proximal shaft. Case was discussed with emergency room provider decision was made to admit the patient to the hospital for further evaluation of the fracture. On 12/28, patient had atrial fibrillation with RVR before patient's while she was in preop. Patient appeared to have hyperactive delirium with heart rates in the 180s to 200s, pressures are stable in the 140s / 80s. EKG which demonstrated atrial fibrillation with RVR rates 180. She rec'd 5 mg of IV metoprolol, heart rates improved to 140-160, pressure decreased to 108/70. After another 5 mg of IV metoprolol as well as 1 mg of Dilaudid for pain control and heart rates improved to sinus rhythm with rates between 88-95, blood pressures were between 85-90/45-50. Case discussed with anesthesiology and orthopedic surgery at bedside, we agreed to defer the surgery until the following morning while stabilizing patient's heart rate, blood pressure overnight. Patient's care was escalated to cardiac selective unit with telemetry. Gen: awake, alert, hyperactive confusion HEENT: normocephalic, atraumatic, good hearing acuity, moist mucous membranes Resp: good air exchange, breathing comfortably with no accessory muscle use CVS: good distal perfusion x 4, : lira catheter is present MSK: left lower extremity in traction Assessment: Paroxysmal atrial fibrillation with RVR Acute Blood Loss Anemia Preoperative clearance Left femur fracture Mechanical fall Hyperactive delirium in the setting of dementia COPD without exacerbation, chronic respiratory failure requiring 2 L of nasal cannula History of CVA Chronic back pain Hyperlipidemia Plan: Vital: Afebrile, 122/67, heart rate 87, 100% on 2 L of nasal cannula Lab: WBC 6.1, Hgb 9.0. Basic metabolic panel shows CO2 of 31, BUN of 26. Images: Nothing new to review Consultation: Discussed with ortho, they are okay with resuming AC from their perspective Ordered CBC, basic metabolic panel, magnesium for tomorrow Pain control: Dilaudid 1 mg every 3 hours when necessary, Dilaudid 0.5 mg every 3 hours when necessary, Tylenol 650 mg every 6 hours. Agitation: Ativan 0.5 mg every 3 hours when necessary Rate control: Metoprolol 25 mg by mouth twice a day, cardiology consulted Anticoagulation: will resume patient's apixaban tomorrow AM if Hgb is stable Bowel regimen: Senokot-S 1 tab twice a day Orthopedic surgery on consult for operative management Patient has no elevated risk for an intermediate risk surgery, however, no modifiable risk factors at this time, okay to proceed to surgery without further negative testing Objective - Vital Signs Vital signs: Vital Signs Temp 98.5 F 12/31/22 08:20 Pulse 80 12/31/22 09:30 Resp 16 12/31/22 08:20 BP 122/67 12/31/22 08:20 Pulse Ox 97 12/31/22 09:17 FiO2 99 12/29/22 08:57 Intake & Output 12/30/22 12/31/22 12/31/22 18:59 06:59 18:59 Intake Total 250 620 100 Output Total 550 425 Balance -300 195 100 Weight 49.895 kg Intake: IV 10 Invasive Line 3 10 Oral 250 90 Blood Product 0 620 Rc As-1 Unit 310 [id number] Rc As-1 Unit 0 310 [id number] Output: Urine 550 425 Other: Voiding Method Indwelling Catheter Indwelling Catheter Indwelling Catheter - Labs CBC & Chem 7: 12/31/22 07:56 12/31/22 07:56 Labs: Abnormal Lab Results - Last 24 Hours (Table) 12/30/22 12/31/22 12/31/22 Range/Units 15:14 07:56 07:56 RBC 2.88 L (3.80-5.40) m/uL Hgb 9.0 L (11.4-16.0) gm/dL Hct 26.8 L (34.0-46.0) % Plt Count 132 L (150-450) k/uL Carbon Dioxide 31 H (22-30) mmol/L BUN 26 H (7-17) mg/dL Glucose 142 H (74-99) mg/dL Calcium 7.8 L (8.4-10.2) mg/dL Crossmatch See Detail
[2022-12-31] MEDS: LACTATED RINGERS 1,000 ML IV SCH ×5 (12:52→12:56)
--- NOTE | 2022-12-31 14:31 | P.CRDCN ---
History of Present Illness Consult date: 12/31/22 Consult reason: atrial fibrillation History of present illness: History of present illness: Patient is a pleasant 82-year-old female with significant past medical history of dementia, paroxysmal atrial fibrillation, COPD, history of CVA who presented to the ER status post fall and was found to have left femur fracture. She underwent surgical repair 12/29/22. She was then found to be hypotensive and tachycardic on 12/30/22 with blood pressure 68/47 and heart rate in the 170s in atrial fibrillation with RVR. She had converted to a normal sinus rhythm with administration of IV fluids. Cardiology was consulted. Patient is pleasantly confused and unable to provide any medical history, no family present. She had prior echocardiogram 04/2021 with ejection fraction 4550 percent, moderate concentric LVH, mild mitral regurgitation, mild tricuspid regurgitation. She was seen by cardiology November 2021 in the hospital with mention that she was not on anticoagulation due to falls and increased risk of bleeding. She denies any pain, chest pain, or shortness of breath. EKG from yesterday shows atrial fibrillation with RVR, HR 174. She has remained in sinus rhythm overnight, rates controlled. REVIEW OF SYSTEMS: No fever or chills. No cough or expectoration. No diaphoresis. Patient denies headache, dizziness, blurred vision, double vision. Patient denies any stomach discomfort. No nausea, vomiting. No hematochezia. No hematemesis. Denies any black stools or blood in his stools. Denies dysuria or hematuria. No muscle weakness or numbness. No chest pain or pressure. PHYSICAL EXAMINATION: This is a 82-year-old female in no apparent distress at the time of my examination. HEENT: Head is atraumatic, normocephalic. Pupils are equal, round. Sclerae anicteric. Conjunctivae are clear. Mucous membranes of the mouth are moist. Neck is supple. There is no jugular venous distention. No carotid bruit is heard. CHEST EXAMINATION: Lungs with scattered wheezes. No chest wall tenderness is noted on palpation or with deep breathing. HEART EXAMINATION: Heart regular rate and rhythm. S1, S2 heard. No murmurs, gallops or rub. ABDOMEN: Soft, nontender. Bowel sounds are heard. EXTREMITIES: 2+ peripheral pulses with no evidence of peripheral edema; left leg dressing is clean dry intact. NEUROLOGIC EXAMINATION: Patient is awake, alert, pleasantly confused, following simple commands. IMPRESSION AND PLAN: Atrial fibrillation, paroxysmal Dementia Falls Left femur fracture COPD Hx of CVA PLAN: She is in sinus rhythm. [id number] score is 5. She apparently has not been on anticoagulation in the past due to frequent falls and increased risk of bleeding. Recommend readdressing anticoagulation as an outpatient. Continue metoprolol. Please call with any questions or concerns. I am dictating on behalf of Dr. Jonathon Taveras's history/physical and assessment/plan. Past Medical History Past Medical History: Atrial Fibrillation, Asthma, COPD, CVA/TIA, Eye Disorder, GERD/Reflux, Hyperlipidemia, Pneumonia Additional Past Medical History / Comment(s): Chronic atrial fibrillation per PMH but pt has no recollection of this, bronchiectasis, essential tremors, previous TIA, chronic lumbar back pain, past 6 months R shoulder/cervical pain, balance difficulty with falls, occasional low urinary output and uses lasix prn for this, bilateral varicose veins, dysphagia-able to take pills one at a time with water, small hiatal hernia, restless leg syndrome, seasonal ALLERGIES, History of Any Multi-Drug Resistant Organisms: None Reported Past Surgical History: Hysterectomy Additional Past Surgical History / Comment(s): 11/27/15 EGD with bx, bilateral cataracts removed with lens implants, colonoscopy with 1 benign polypectomy. Past Anesthesia/Blood Transfusion Reactions: No Reported Reaction Past Psychological History: Anxiety, Depression Additional Psychological History / Comment(s): Pt's son, Sonu lives with her. She uses a cane or walker to ambulate. Smoking Status: Current some day smoker Past Alcohol Use History: None Reported Additional Past Alcohol Use History / Comment(s): Pt states she started smoking in her early 20's. She quit for several yrs, during her pregnancies and when her children were young. She smokes a cigeratte once in awhile when stressed Past Drug Use History: None Reported - Past Family History Father Family Medical History: Cancer Additional Family Medical History / Comment(s): Pt thinks father might have from stomach cancer. She was 2 yrs old when he . Sister(s) Family Medical History: Cancer Additional Family Medical History / Comment(s): Half sister with brain cancer. Mother Family Medical History: Dementia Additional Family Medical History / Comment(s): Mother had gallstones and a partial thyroidectomy for noncancerous reasons. Medications and Allergies Home Medications Medication Instructions Recorded Confirmed Type Omeprazole 40 mg PO DAILY 08/24/17 12/27/22 History ALPRAZolam [Xanax] 0.5 mg PO BID PRN 05/21/21 12/27/22 History FLUoxetine HCL [PROzac] 40 mg PO DAILY 05/21/21 12/27/22 History Acetaminophen Tab [Tylenol] 500 mg PO Q6HR PRN 10/30/21 12/27/22 History busPIRone HCl [Buspar] 5 mg PO BID 10/30/21 12/27/22 History Propranolol [Inderal] 40 mg PO BID 03/15/22 12/27/22 History Albuterol Inhaler [Ventolin Hfa 2 puff INHALATION RT-Q4H PRN #1 07/01/22 12/27/22 Rx Inhaler] each Albuterol Nebulized [Ventolin 2.5 mg INHALATION RT-QID 07/27/22 12/27/22 History Nebulized] Aspirin 81 mg PO DAILY 07/27/22 12/27/22 History Cetirizine HCl [Zyrtec] 10 mg PO DAILY 07/27/22 12/27/22 History Cholecalciferol [Vitamin D3 (25 25 mcg PO DAILY 07/27/22 12/27/22 History Mcg = 1000 Iu)] Diclofenac Sodium Gel [Voltaren 2 gm TOPICAL QID PRN 07/27/22 12/27/22 History Gel] Fluticasone/Umeclidin/Vilanter 1 puff INHALATION RT-DAILY 11/14/22 12/27/22 History [Treleflorence Ellipta 100-62.5-25] Meloxicam [Mobic] 15 mg PO DAILY 12/27/22 12/27/22 History Allergies Allergy/AdvReac Type Severity Reaction Status Date / Time budesonide [From Symbicort] Allergy Unknown Verified 12/27/22 19:02 formoterol [From Symbicort] Allergy Unknown Verified 12/27/22 19:02 gabapentin Allergy Unknown Verified 12/27/22 19:02 ibuprofen Allergy Unknown Verified 12/27/22 19:02 Iodinated Contrast Media Allergy Unknown Verified 12/27/22 19:02 [Iodinated Contrast- Oral and IV Dye] iodine Allergy Rash/Hives Verified 12/27/22 19:02 Sulfa (Sulfonamide Allergy Rash/Hives Verified 12/27/22 19:02 Antibiotics) topiramate [From Topamax] Allergy Unknown Verified 12/27/22 19:02 lorazepam [From Ativan] AdvReac Hallucinati Verified 12/27/22 19:02 ons prednisone AdvReac dizziness Verified 12/27/22 19:02 zolpidem tartrate AdvReac Hallucinati Verified 12/27/22 19:02 [From Ambien] ons Physical Exam Vitals: Vital Signs Temp Pulse Pulse Resp BP BP Pulse Ox 12/31/22 09:30 80 12/31/22 09:17 97 12/31/22 09:13 76 12/31/22 08:20 98.5 F 87 16 122/67 100 12/31/22 04:00 98.7 F 87 16 106/54 97 12/31/22 02:00 89 16 12/31/22 01:15 99.0 F 85 16 101/48 12/30/22 22:18 98.4 F 91 16 87/50 97 12/30/22 21:58 99.3 F 86 16 93/50 98 12/30/22 21:21 92 12/30/22 21:15 99.3 F 88 16 91/47 12/30/22 20:00 99.3 F 89 18 93/53 95 12/30/22 18:39 99.3 F 87 18 83/40 99 12/30/22 18:19 99.9 F H 88 18 90/49 12/30/22 18:10 99.3 F 89 17 93/53 95 12/30/22 16:29 89/43 12/30/22 16:05 93/56 12/30/22 15:50 73/40 12/30/22 15:45 68/43 12/30/22 14:00 83 18 12/30/22 12:04 88 18 12/30/22 12:00 98.4 F 83 18 99/47 98 12/30/22 11:56 88 18 Intake and Output 12/30/22 12/31/22 12/31/22 22:59 06:59 14:59 Intake Total 310 310 100 Output Total 250 425 Balance 60 -115 100 Intake: IV 10 Invasive Line 3 10 Oral 0 90 Blood Product 310 310 Rc As-1 Unit 0 310 [id number] Rc As-1 Unit 310 [id number] Output: Urine 250 425 Other: Voiding Method Indwelling Catheter Indwelling Catheter Indwelling Catheter Results 12/31/22 07:56 12/31/22 07:56 CBC 12/31/22 Range/Units 07:56 WBC 6.1 (3.8-10.6) k/uL RBC 2.88 L (3.80-5.40) m/uL Hgb 9.0 L (11.4-16.0) gm/dL Hct 26.8 L (34.0-46.0) % Plt Count 132 L (150-450) k/uL Comprehensive Metabolic Panel 12/31/22 Range/Units 07:56 Sodium 137 (137-145) mmol/L Potassium 3.7 (3.5-5.1) mmol/L Chloride 107 (98-107) mmol/L Carbon Dioxide 31 H (22-30) mmol/L BUN 26 H (7-17) mg/dL Creatinine 0.61 (0.52-1.04) mg/dL Glucose 142 H (74-99) mg/dL Calcium 7.8 L (8.4-10.2) mg/dL Current Medications Generic Name Dose Route Start Last Admin Trade Name Freq PRN Reason Stop Dose Admin Acetaminophen 650 mg 12/27/22 16:28 Acetaminophen Tab 325 Mg Tab PO Q6HR PRN Mild Pain or Fever > 100.5 Albuterol Sulfate 2.5 mg 12/27/22 19:51 12/29/22 19:23 Albuterol Nebulized 2.5 Mg/3 Ml INHALATION 2.5 mg RT-Q4H PRN Administration Shortness Of Breath Albuterol Sulfate 2.5 mg 12/27/22 20:00 12/31/22 09:13 Albuterol Nebulized 2.5 Mg/3 Ml INHALATION 2.5 mg RT-QID BA Administration Alprazolam 0.5 mg 12/27/22 19:51 Alprazolam 0.5 Mg Tab PO BID PRN Anxiety Buspirone HCl 5 mg 12/27/22 21:00 12/31/22 08:22 Buspirone Hcl 5 Mg Tab PO 5 mg BID BA Administration Cholecalciferol 25 mcg 12/28/22 09:00 12/31/22 08:22 Cholecalciferol 25 Mcg (1000 Iu) Tablet PO 25 mcg DAILY BA Administration Fluoxetine HCl 40 mg 12/28/22 09:00 12/31/22 08:22 Fluoxetine Hcl 20 Mg Cap PO 40 mg DAILY BA Administration Hydromorphone HCl 0.125 mg 12/29/22 16:04 12/30/22 20:03 Hydromorphone 0.5 Mg/0.5 Ml Syringe IVP 0.125 mg Q3HR PRN Administration Pain Scale 1 to 3 Hydromorphone HCl 0.5 mg 12/29/22 16:04 12/31/22 08:25 Hydromorphone 0.5 Mg/0.5 Ml Syringe IVP 0.5 mg Q3HR PRN Administration Pain Scale 7 to 10 Hydromorphone HCl 0.25 mg 12/29/22 16:04 Hydromorphone 0.5 Mg/0.5 Ml Syringe IVP Q3HR PRN Pain Scale 4 to 6 Sodium Chloride 1,000 mls @ 60 mls/hr 12/29/22 16:15 12/30/22 09:07 Saline 0.9% IV 60 mls/hr .[id number] BA Administration Lactated Ringer's 1,000 mls @ 999 mls/hr 12/30/22 15:00 12/30/22 15:17 Lactated Ringers IV 999 mls/hr .Q1H1M BA Administration Loratadine 10 mg 12/28/22 09:00 12/31/22 08:22 Loratadine 10 Mg Tab PO 10 mg DAILY BA Administration Lorazepam 0.5 mg 12/28/22 18:08 12/29/22 10:01 Lorazepam 2 Mg/Ml Inj IV 0.5 mg Q3HR PRN Administration Agitation or Acute Anxiety Magnesium Hydroxide 2,400 mg 12/29/22 16:04 Magnesium Hydroxide 2,400 Mg/30 Ml Cup PO DAILY PRN Constipation Metoprolol Tartrate 25 mg 12/28/22 18:09 12/31/22 08:22 Metoprolol Tartrate 25 Mg Tab PO 25 mg BID BA Administration Naloxone HCl 0.2 mg 12/29/22 16:04 Naloxone 0.4 Mg/Ml 1 Ml Vial IV Q2M PRN Opioid Reversal Ondansetron HCl 4 mg 12/29/22 16:04 Ondansetron 4 Mg/2 Ml Vial IVP Q8H PRN Nausea And Vomiting Pantoprazole Sodium 40 mg 12/28/22 07:30 12/31/22 07:11 Pantoprazole 40 Mg Tablet PO 40 mg [id number] BA Administration Senna/Docusate Sodium 2 each 12/29/22 21:00 12/30/22 21:28 Sennosides-Docusate Sodium 1 Each Tab PO 2 each HS BA Administration Tramadol HCl 50 mg 12/29/22 16:06 Tramadol 50 Mg Tab PO Q6H PRN Pain Scale 1 to 5 Tramadol HCl 100 mg 12/29/22 16:06 Tramadol 50 Mg Tab PO QID PRN Pain Scale 6 to 10 Intake and Output 12/30/22 12/31/22 12/31/22 22:59 06:59 14:59 Intake Total 310 310 100 Output Total 250 425 Balance 60 -115 100 Intake: IV 10 Invasive Line 3 10 Oral 0 90 Blood Product 310 310 Rc As-1 Unit 0 310 [id number] Rc As-1 Unit 310 [id number] Output: Urine 250 425 Other: Voiding Method Indwelling Catheter Indwelling Catheter Indwelling Catheter 12/31/22 07:56 12/31/22 07:56
[2022-12-31] MEDS: LORazepam 2 MG/ML INJ IV PRN (19:54)
[2022-12-31] MEDS ORDERED: DILTIAZEM DRIP BOLUS FROM BAG 1 MG SOLN IV ONE (21:40)
[2022-12-31] MEDS ORDERED: DILTIAZEM 125 MG in SODIUM CHLORIDE 0.9% 100 ML IV SCH (21:45)
[2023-01-01] MEDS: METOPROLOL TARTRATE 25 MG TAB PO SCH ×2 (01:06→08:42)
[2023-01-01] MEDS: busPIRone HCl 5 MG TAB PO SCH ×3 (01:06→20:18)
[2023-01-01] MEDS: SENNOSIDES-DOCUSATE SODIUM 1 EACH TAB PO SCH ×2 (01:07→20:19)
[2023-01-01] MEDS: DILTIAZEM 125 MG in SODIUM CHLORIDE 0.9% 100 ML IV SCH (07:29)
[2023-01-01] MEDS: SODIUM CHLORIDE 0.9% 1,000 ML IV SCH (07:31)
[2023-01-01] MEDS: FLUoxetine HCL 20 MG CAP PO SCH (08:41)
[2023-01-01] MEDS: LORATADINE 10 MG TAB PO SCH (08:41)
[2023-01-01] MEDS: traMADol 50 MG TAB PO PRN ×3 (08:42→19:02)
[2023-01-01 08:50] LABS: HCT 25.7 % (34.0-46.0); HGB 8.6 gm/dL (11.4-16.0); MCH 31.4 pg (25.0-35.0); MCHC 33.6 g/dL (31.0-37.0); MCV 93.6 fL (80.0-100.0); Mean Platelet Volume 8.2; Platelet Count 165 k/uL (150-450); RBC 2.74 m/uL (3.80-5.40); RDW 14.2 % (11.5-15.5); WBC 6.4 k/uL (3.8-10.6)
[2023-01-01] MEDS: ALBUTEROL NEBULIZED 2.5 MG/3 ML INHALATION SCH ×4 (09:00→20:37)
[2023-01-01 09:06] LABS: African American GFR (CKD) >90 (>60 ml/min/1.73 sqM); Anion Gap 1 mmol/L; Blood Urea Nitrogen 20 mg/dL (7-17); Calcium 7.8 mg/dL (8.4-10.2); Carbon Dioxide 30 mmol/L (22-30); Chloride 105 mmol/L (98-107); Glucose 101 mg/dL (74-99); Non-African American GFR(CKD) 86 (>60 ml/min/1.73 sqM); Potassium 3.4 mmol/L (3.5-5.1); Sodium 136 mmol/L (137-145)
[2023-01-01] MEDS ORDERED: METOPROLOL TARTRATE 12.5 MG TAB PO STA (09:37)
[2023-01-01] MEDS: ALBUTEROL NEBULIZED 2.5 MG/3 ML INHALATION PRN (09:41)
--- NOTE | 2023-01-01 10:41 | P.PN ---
Progress Note - Text Progress Note Date: 01/01/23 Orthopedics: History of present illness: Patient is a pleasant 82-year-old female with dementia who is seen in the bedside for further evaluation of her left lower extremity. She is status post left hip long IT nail with cables to the left femur following a closed spiral proximal third femur fracture. Nursing states patient did remove her dressing the previous night. Currently her wilfred are intact without any active drainage. She has no new complaints at the bedside. Patient is not complaining of any significant pain at her left lower extremity. She is strict nonweightbearing on the left lower extremity. She does have a blister at her left heel that is closed following Francois's traction. Her left heel is currently elevated off of the bed. Patient is lately remaining in the hospital over the weekend with plans to discharge to a rehabilitation facility this coming 01/02/2023, if cleared. Patient is admitted to medicine and continues to be seen and examined for her other medical diagnoses including paroxysmal atrial fibrillation with RVR, acute blood loss anemia, and hypertension. Patient did previously receive 2 units of packed red blood cells. Patient's hemoglobin is currently 8.6. Her WBC is 6.4. Physical Exam Intramedullary Rodding for Intertrochanteric Fracture: Status post surgical day number 3 Patient is examined lying in bed Patient is awake and alert, and oriented 3 Vital signs stable Good chest excursion with deep inspiration and expiration; patient currently on O2 nasal cannula Abdomen soft nontender No signs or symptoms of DVT; no calf pain Lower extremity cuffs in place bilaterally Able over the left hip are clean, dry, and intact; no erythema, purulence, or signs of infection No pain with palpation over the surgical site Full range of motion of ankles bilaterally Dorsiflexion, plantarflexion, and extensor hallucis longus positive sustained bilaterally Neurovascularly intact bilateral lower extremities Capillary refill less than 2 seconds bilateral lower extremities Evidence of left heel blister with pneumatic boot intact without active drainage Assessment: Status post open reduction internal fixation of left proximal one third spiral femur fracture with trochanteric nailing Left hip and femur pain Status post fall Dementia Paroxysmal atrial fibrillation with RVR Hypertension Acute blood loss anemia Left heel blister Plan: 1. Patient to remain nonweightbearing on the left lower extremity; patient may work with physical therapy to increase mobility and ambulation 2. Keep dressing over the left hip clean, dry, and intact 3. Discontinue [place] Vega catheter when patient is able to increase mobility and ambulation 4. Continue pain control with oral tramadol and IV Dilaudid as needed for pain control 5. Medicine will manage anticoagulation this patient has history of atrial fibrillation with RVR 6. Patient has a blister at her left heel following Francois's traction. Currently her left heel is elevated off the bed. This blister is closed. We will currently continue to monitor this with conservative treatment. 7. Medicine to continue following the patient for their other medical diagnosis 8. We'll continue to follow the patient closely; depending on the patient's progress, we may plan for discharge as early as this coming Monday to a rehabilitation facility 9. Patient can follow-up with Dr. Pablo Dave at [facility] in 2-3 weeks following discharge
[2023-01-01] MEDS ORDERED: LACTULOSE 20 GM/30 ML CUP PO ONE (10:45)
--- NOTE | 2023-01-01 10:54 | XR ---
EXAMINATION TYPE: XR chest 1V portable DATE OF EXAM: 01/01/2023 COMPARISON: 12/27/2022 INDICATION: Short of breath TECHNIQUE: Single frontal view of the chest is obtained. FINDINGS: The heart size is normal. The pulmonary vasculature is normal. The lungs are clear. IMPRESSION: 1. No acute pulmonary process.
--- NOTE | 2023-01-01 11:00 | P.PN ---
Subjective Progress Note Date: 01/01/23 Pt is doing well today. Pain is controlled, HRs are controlled. Had another episode of A fib with RVR overnight, rec'd diltiazem push with resolution. Gen: awake, alert HEENT: normocephalic, atraumatic, good hearing acuity, moist mucous membranes Resp: good air exchange, breathing comfortably with no accessory muscle use CVS: good distal perfusion x 4, GI: soft, NTTP, ND : no SPT, no CVAT, lira catheter is present MSK: no pitting edema, no clubbing Neuro: non-focal, moving all extremities Psych: cooperative, euthymic mood Hospital Course: 82 year old woman with history of dementia, COPD on 2 L, essential tremors, history of CVA, chronic back pain, hyperlipidemia presented after mechanical fall resulted in right femur fracture. In the emergency room, patient was afebrile, 160/81, heart rate 60, 100% on 2 L nasal cannula. CBC is unremarkable. Basic metabolic panel shows mildly elevated BUN 19, otherwise unremarkable. Albumin is 3.2 on liver function test. Coags were unremarkable. EKG shows normal sinus rhythm with right axis deviation, otherwise unremarkable. Chest x-ray is a poor study due to rotation, appears to have a normal size heart, hyperinflated lungs. Cervical spine x-ray shows mild to moderate spondylytic change as well as degenerative grade retrolisthesis of C5 to C6 and C6 to C7. Femur and pelvis x-ray showed oblique fracture of the proximal left femur extending into the medial base of the femoral neck [place] lateral femoral cortex of the proximal shaft. Case was discussed with emergency room provider decision was made to admit the patient to the hospital for further evaluation of the fracture. On 12/28, patient had atrial fibrillation with RVR bef ore patient's while she was in preop. Patient appeared to have hyperactive delirium with heart rates in the 180s to 200s, pressures are stable in the 140s / 80s. EKG which demonstrated atrial fibrillation with RVR rates 180. She rec'd 5 mg of IV metoprolol, heart rates improved to 140-160, pressure decreased to 108/70. After another 5 mg of IV metoprolol as well as 1 mg of Dilaudid for pain control and heart rates improved to sinus rhythm with rates between 88-95, blood pressures were between 85-90/45-50. Case discussed with anesthesiology and orthopedic surgery at bedside, we agreed to defer the surgery until the following morning while stabilizing patient's heart rate, blood pressure o vernight. Patient's care was escalated to cardiac selective unit with telemetry. Gen: awake, alert, hyperactive confusion HEENT: normocephalic, atraumatic, good hearing acuity, moist mucous membranes Resp: good air exchange, breathing comfortably with no accessory muscle use CVS: good distal perfusion x 4, : lira catheter is present MSK: left lower extremity in traction Assessment: Paroxysmal atrial fibrillation with RVR Acute Blood Loss Anemia Preoperative clearance Left femur fracture Mechanical fall Hyperactive delirium in the setting of dementia COPD without exacerbation, chronic respiratory failure requiring 2 L of nasal cannula History of CVA Chronic back pain Hyperlipidemia Plan: Vital: Afebrile, 106/57, heart rate 85, 98% on 2 L of nasal cannula Lab: WBC 6.4, Hgb 8.6. Basic metabolic panel shows CO2 of 30, BUN of 20. Images: CXR reviewed and personally interpreted, rotation of patient limits interpretation, but appears to have no evidence of new opacities or infiltrates Consultation: Cardiology consulted yesterday, they agree with metoprolol Ordered CBC, basic metabolic panel, magnesium for tomorrow Ordered repeat CBC for today at 1500 Pain control: Dilaudid 1 mg every 3 hours when necessary, Dilaudid 0.5 mg every 3 hours when necessary, Tylenol 650 mg every 6 hours. Tramadol 100mg TID PRN Agitation: Ativan 0.5 mg every 3 hours when necessary Rate control: Metoprolol 25 mg by mouth twice a day, cardiology consulted Anticoagulation: will resume patient's apixaban in the PM if Hgb is stable on 1500 check Bowel regimen: Senokot-S 1 tab twice a day Objective - Vital Signs Vital signs: Vital Signs Temp 97.9 F 01/01/23 08:33 Pulse 88 01/01/23 09:51 Resp 20 01/01/23 08:33 BP 106/57 01/01/23 08:33 Pulse Ox 97 01/01/23 09:02 FiO2 99 12/29/22 08:57 Intake & Output 12/31/22 01/01/23 01/01/23 18:59 06:59 18:59 Intake Total 230 20 490 Output Total 350 250 Balance -120 -230 490 Intake: IV 20 20 10 Invasive Line 3 20 20 10 Oral 210 480 Output: Urine 350 250 Other: Voiding Method Indwelling Catheter Indwelling Catheter Indwelling Catheter - Labs CBC & Chem 7: 01/01/23 08:07 01/01/23 08:07 Labs: Abnormal Lab Results - Last 24 Hours (Table) 01/01/23 01/01/23 Range/Units 08:07 08:07 RBC 2.74 L (3.80-5.40) m/uL Hgb 8.6 L (11.4-16.0) gm/dL Hct 25.7 L (34.0-46.0) % Sodium 136 L (137-145) mmol/L Potassium 3.4 L (3.5-5.1) mmol/L BUN 20 H (7-17) mg/dL Glucose 101 H (74-99) mg/dL Calcium 7.8 L (8.4-10.2) mg/dL
--- NOTE | 2023-01-01 11:34 | P.PN ---
Subjective Progress Note Date: 01/01/23 History of present illness: Patient is a pleasant 82-year-old female with significant past medical history of dementia, paroxysmal atrial fibrillation, COPD, history of CVA who presented to the ER status post fall and was found to have left femur fracture. She underwent surgical repair 12/29/22. She was then found to be hypotensive and tachycardic on 12/30/22 with blood pressure 68/47 and heart rate in the 170s in atrial fibrillation with RVR. She had converted to a normal sinus rhythm with administration of IV fluids. Cardiology was consulted. Patient is pleasantly confused and unable to provide any medical history, no family present. She had prior echocardiogram 04/2021 with ejection fraction 4550 percent, moderate concentric LVH, mild mitral regurgitation, mild tricuspid regurgitation. She was seen by cardiology November 2021 in the hospital with mention that she was not on anticoagulation due to falls and increased risk of bleeding. She denies any pain, chest pain, or shortness of breath. EKG from yesterday shows atrial fibrillation with RVR, HR 174. She has remained in sinus rhythm overnight, rates controlled. 01/01/23 Patient did have episode of A. fib with RVR again overnight and converted to sinus rhythm after Cardizem bolus. RN reports that she did not take her p.m. dose of metoprolol. She is still confused, appears more short of breath and drowsy today. She is complaining of mild chest pains and shortness of breath. PHYSICAL EXAMINATION: This is a 82-year-old female, appears mildly short of breath. HEENT: Head is atraumatic, normocephalic. There is no jugular venous distention. No carotid bruit is heard. CHEST EXAMINATION: Lungs with scattered wheezes. No chest wall tenderness is noted on palpation or with deep breathing. HEART EXAMINATION: Heart regular rate and rhythm. S1, S2 heard. No murmurs, gallops or rub. ABDOMEN: Soft, nontender. Bowel sounds are heard. EXTREMITIES: 2+ peripheral pulses with no evidence of peripheral edema; left leg dressing is clean dry intact. NEUROLOGIC EXAMINATION: Patient is awake, pleasantly confused, following simple commands. IMPRESSION AND PLAN: Atrial fibrillation, paroxysmal Dementia Falls Left femur fracture COPD Hx of CVA Dyspnea PLAN: She appears to have worsening shortness of breath and some complaints of chest pain this morning. Ordered EKG which shows normal sinus rhythm with no significant ST or T wave changes. Ordered chest x-ray which shows no acute pulmonary process. Trend troponin and check BNP level. We will increase metoprolol to 37.5 mg twice a day for better rate control. [id number] score is 5. She apparently has not been on anticoagulation in the past due to frequent falls and increased risk of bleeding. Recommend readdressing anticoagulation as an outpatient. Will follow. I am dictating on behalf of Dr. Jonathon Taveras's history/physical and assessment/plan. Objective - Vital Signs Vital signs: Vital Signs Temp 97.9 F 01/01/23 08:33 Pulse 88 01/01/23 09:51 Resp 20 01/01/23 08:33 BP 106/57 01/01/23 08:33 Pulse Ox 97 01/01/23 09:02 FiO2 99 12/29/22 08:57 Intake & Output 12/31/22 01/01/23 01/01/23 18:59 06:59 18:59 Intake Total 230 20 490 Output Total 350 250 Balance -120 -230 490 Intake: IV 20 20 10 Invasive Line 3 20 20 10 Oral 210 480 Output: Urine 350 250 Other: Voiding Method Indwelling Catheter Indwelling Catheter Indwelling Catheter - Labs CBC & Chem 7: 01/01/23 08:07 01/01/23 08:07 Labs: Abnormal Lab Results - Last 24 Hours (Table) 01/01/23 01/01/23 Range/Units 08:07 08:07 RBC 2.74 L (3.80-5.40) m/uL Hgb 8.6 L (11.4-16.0) gm/dL Hct 25.7 L (34.0-46.0) % Sodium 136 L (137-145) mmol/L Potassium 3.4 L (3.5-5.1) mmol/L BUN 20 H (7-17) mg/dL Glucose 101 H (74-99) mg/dL Calcium 7.8 L (8.4-10.2) mg/dL
[2023-01-01] MEDS: CHOLECALCIFEROL 25 MCG (1000 IU) TABLET PO SCH (12:36)
[2023-01-01] MEDS ORDERED: bisacodyL 10 MG SUPP RECTAL STA (15:11)
[2023-01-01] MEDS: ALPRAZolam 0.5 MG TAB PO PRN (17:12)
[2023-01-01 17:42] LABS: Basophils % (A) 0 %; Eosinophils # (A) 0.1 k/uL (0-0.7); Eosinophils % (A) 2 %; HCT 27.6 % (34.0-46.0); Lymphocytes % (A) 14 %; MCH 30.7 pg (25.0-35.0); MCHC 32.6 g/dL (31.0-37.0); MCV 94.2 fL (80.0-100.0); Mean Platelet Volume 7.9; Monocytes # (A) 0.6 k/uL (0-1.0); Monocytes % (A) 9 %; Neutrophils # (A) 5.1 k/uL (1.3-7.7); Neutrophils % (A) 72 %; Platelet Count 182 k/uL (150-450); RBC 2.93 m/uL (3.80-5.40)
[2023-01-01] MEDS: METOPROLOL TARTRATE 12.5 MG TAB PO SCH (20:18)
[2023-01-02] MEDS: PANTOPRAZOLE 40 MG TABLET PO SCH (06:21)
[2023-01-02] MEDS: traMADol 50 MG TAB PO PRN ×3 (06:24→20:17)
[2023-01-02] MEDS: CHOLECALCIFEROL 25 MCG (1000 IU) TABLET PO SCH (08:00)
[2023-01-02] MEDS: busPIRone HCl 5 MG TAB PO SCH ×2 (08:00→20:18)
[2023-01-02] MEDS: METOPROLOL TARTRATE 12.5 MG TAB PO SCH (08:00)
[2023-01-02] MEDS: LORATADINE 10 MG TAB PO SCH (08:00)
[2023-01-02] MEDS: FLUoxetine HCL 20 MG CAP PO SCH (08:00)
[2023-01-02 08:19] LABS: Basophils % (A) 0 %; Eosinophils # (A) 0.2 k/uL (0-0.7); Eosinophils % (A) 3 %; HCT 26.3 % (34.0-46.0); HGB 8.8 gm/dL (11.4-16.0); Lymphocytes # (A) 1.1 k/uL (1.0-4.8); Lymphocytes % (A) 16 %; MCH 31.2 pg (25.0-35.0); MCHC 33.4 g/dL (31.0-37.0); MCV 93.4 fL (80.0-100.0); Mean Platelet Volume 8.1; Monocytes # (A) 0.6 k/uL (0-1.0); Monocytes % (A) 9 %; Neutrophils # (A) 4.7 k/uL (1.3-7.7); Neutrophils % (A) 69 %; Platelet Count 182 k/uL (150-450); RBC 2.81 m/uL (3.80-5.40); WBC 6.9 k/uL (3.8-10.6)
[2023-01-02] MEDS: ALBUTEROL NEBULIZED 2.5 MG/3 ML INHALATION SCH ×4 (08:26→20:46)
[2023-01-02] MEDS ORDERED: methylPREDNISolone SOD SUCCI 125 MG/2 ML VIAL IV STA (08:28)
[2023-01-02] MEDS ORDERED: FAMOTIDINE 20 MG/2 ML VIAL IV STA (08:28)
[2023-01-02] MEDS ORDERED: diphenhydrAMINE 50 MG/ML 1 ML VIAL IVP STA (08:28)
[2023-01-02 08:46] LABS: African American GFR (CKD) >90 (>60 ml/min/1.73 sqM); Anion Gap 1 mmol/L; Blood Urea Nitrogen 16 mg/dL (7-17); Calcium 7.7 mg/dL (8.4-10.2); Carbon Dioxide 30 mmol/L (22-30); Chloride 103 mmol/L (98-107); Glucose 90 mg/dL (74-99); Non-African American GFR(CKD) >90 (>60 ml/min/1.73 sqM); Potassium 3.6 mmol/L (3.5-5.1); Sodium 134 mmol/L (137-145)
[2023-01-02] MEDS ORDERED: METOPROLOL TARTRATE 50 MG TAB PO STA (09:17)
[2023-01-02] MEDS ORDERED: AMIODARONE 360 MG in DEXTROSE 5% IN WATER 200 ML IV ONE ×2 (09:17)
[2023-01-02] MEDS ORDERED: DEXTROSE 5% IN WATER 100 ML with AMIODARONE 150 MG IV ONE (09:17)
[2023-01-02] MEDS ORDERED: HEPARIN SODIUM 1,000 UN/ML (10ML VL) IV PRN (09:21)
[2023-01-02] MEDS ORDERED: HEPARIN SODIUM 1,000 UN/ML (10ML VL) IV ONE (09:21)
--- NOTE | 2023-01-02 09:25 | P.PN ---
Subjective Progress Note Date: 01/02/23 Pt is back in AFib with RVR, BNP elevated, c/o dyspnea. Has not been on AC due to ABLA, concern for PE, discussed this with cardiology. Gen: awake, alert HEENT: normocephalic, atraumatic, good hearing acuity, moist mucous membranes Resp: good air exchange, breathing comfortably with no accessory muscle use CVS: good distal perfusion x 4, GI: soft, NTTP, ND : no SPT, no CVAT, lira catheter is present MSK: no pitting edema, no clubbing Neuro: non-focal, moving all extremities Psych: cooperative, euthymic mood Hospital Course: 82 year old woman with history of dementia, COPD on 2 L, essential tremors, history of CVA, chronic back pain, hyperlipidemia presented after mechanical fall resulted in right femur fracture. In the emergency room, patient was afebrile, 160/81, heart rate 60, 100% on 2 L nasal cannula. CBC is unremarkable. Basic metabolic panel shows mildly elevated BUN 19, otherwise unremarkable. Albumin is 3.2 on liver function test. Coags were unremarkable. EKG shows normal sinus rhythm with right axis deviation, otherwise unremarkable. Chest x-ray is a poor study due to rotation, appears to have a normal size heart, hyperinflated lungs. Cervical spine x-ray shows mild to moderate spondylytic change as well as degenerative grade retrolisthesis of C5 to C6 and C6 to C7. Femur and pelvis x-ray showed oblique fracture of the proximal left femur extending into the medial base of the femoral neck [place] lateral femoral cortex of the proximal shaft. Case was discussed with emergency room provider decision was made to admit the patient to the hospital for further evaluation of the fracture. On 12/28, patient had atrial fibrillation with RVR before patient's while she was in preop. Patient appeared to have hyperactive delirium with heart rates in the 180s to 200s, pressures are stable in the 140s / 80s. EKG which demonstrated atrial fibrillation with RVR rates 180. She rec'd 5 mg of IV metoprolol, heart rates improved to 140-160, pressure decreased to 108/70. After another 5 mg of IV metoprolol as well as 1 mg of Dilaudid for pain control and heart rates improved to sinus rhythm with rates between 88-95, blood pressures were between 85-90/45-50. Case discussed with anesthesiology and orthopedic surgery at bedside, we agreed to defer the surgery until the following morning while stabilizing patient's heart rate, blood pressure overnight. Patient's care was escalated to cardiac selective unit with telemetry. Gen: awake, alert, hyperactive confusion HEENT: normocephalic, atraumatic, good hearing acuity, moist mucous membranes Resp: good air exchange, breathing comfortably with no accessory muscle use CVS: good distal perfusion x 4, : lira catheter is present MSK: left lower extremity in traction Assessment: Paroxysmal atrial fibrillation with RVR Acute Blood Loss Anemia Preoperative clearance Left femur fracture Mechanical fall Hyperactive delirium in the setting of dementia COPD without exacerbation, chronic respiratory failure requiring 2 L of nasal cannula History of CVA Chronic back pain Hyperlipidemia Plan: Vital: Afebrile, 119/59, heart rate 71, 95% on 2 L of nasal cannula Lab: WBC 6.9, Hgb 8.8. Basic metabolic panel shows CO2 of 30, BUN of 20. Images: CXR reviewed and personally interpreted, rotation of patient limits interpretation, but appears to have no evidence of new opacities or infiltrates Consultation: Discussed with cardioloyg today - starting heparin gtt, amiodarone, increasing metoprolol, obtaining CT Angio of the chest Ordered CBC, basic metabolic panel, magnesium for tomorrow Ordered repeat CBC for today at 1500 Pain control: Dilaudid 1 mg every 3 hours when necessary, Dilaudid 0.5 mg every 3 hours when necessary, Tylenol 650 mg every 6 hours. Tramadol 100mg TID PRN Agitation: Ativan 0.5 mg every 3 hours when necessary Rate control: Metoprolol 50 mg by mouth twice a day, amiodarone gtt, cardiology consulted Anticoagulation: heparin gtt Bowel regimen: Senokot-S 1 tab twice a day Objective - Vital Signs Vital signs: Vital Signs Temp 97.5 F L 01/02/23 08:42 Pulse 71 01/02/23 08:42 Resp 18 01/02/23 08:42 BP 119/59 01/02/23 08:42 Pulse Ox 95 01/02/23 08:42 FiO2 99 12/29/22 08:57 Intake & Output 01/01/23 01/02/23 01/02/23 18:59 06:59 18:59 Intake Total 740 20 Output Total 650 1100 Balance 90 -1080 Weight 50.6 kg Intake: IV 20 20 Invasive Line 3 20 20 Oral 720 Output: Urine 650 1100 Other: Voiding Method Indwelling Catheter Indwelling Catheter # Bowel Movements 1 - Labs CBC & Chem 7: 01/02/23 07:02 01/02/23 07:02 Labs: Abnormal Lab Results - Last 24 Hours (Table) 01/01/23 01/01/23 01/01/23 Range/Units 11:31 16:47 16:47 RBC 2.93 L (3.80-5.40) m/uL Hgb 9.0 L (11.4-16.0) gm/dL Hct 27.6 L (34.0-46.0) % Sodium (137-145) mmol/L Creatinine (0.52-1.04) mg/dL Calcium (8.4-10.2) mg/dL Troponin I 0.045 H* 0.063 H* (0.000-0.034) ng/mL 01/02/23 01/02/23 Range/Units 07:02 07:02 RBC 2.81 L (3.80-5.40) m/uL Hgb 8.8 L (11.4-16.0) gm/dL Hct 26.3 L (34.0-46.0) % Sodium 134 L (137-145) mmol/L Creatinine 0.49 L (0.52-1.04) mg/dL Calcium 7.7 L (8.4-10.2) mg/dL Troponin I (0.000-0.034) ng/mL
[2023-01-02] MEDS ORDERED: diphenhydrAMINE 50 MG/ML 1 ML VIAL ONE (09:40)
[2023-01-02] MEDS: AMIODARONE 200 MG TAB PO SCH ×2 (10:32→20:19)
[2023-01-02] MEDS: ALPRAZolam 0.5 MG TAB PO PRN ×2 (10:32→20:17)
[2023-01-02] MEDS: HEPARIN SOD,PORK IN 0.45% NACL 25,000 UNIT in 0.45% NACL 1 250ML.BAG IV SCH (10:33)
--- NOTE | 2023-01-02 10:36 | CT ---
EXAMINATION TYPE: CT chest angio for PE CT DLP: 249.2 mGycm, Automated exposure control for dose reduction was used. DATE OF EXAM: 01/02/2023 10:19 AM COMPARISON: . Chest radiograph from 01/01/2023, CT chest abdomen pelvis 11/14/2022. CLINICAL INDICATION:Female, 82 years old with history of dyspnea, r/o PE; dyspnea TECHNIQUE/CONTRAST: CTA scan of the thorax is performed with IV Contrast, patient injected with 100 mL of Isovue 370, pul monary embolism protocol. MIP images are created and reviewed. FINDINGS: Motion degraded examination. Pulmonary Artery: There are filling defects identified within the right middle and lower lobe segment al and subsegmental branches. (Series 501, image 60). Dilatation the main pulmonary artery measuring up to 3.1 cm. Lungs/Pleura: Small bilateral pleural effusions with associated atelectasis. Groundglass opacities wi thin the left upper lobe. Right-sided volume loss. Linear scarring and/or atelectasis within the righ t middle and lower lobes. Airway: Large airways are patent. Heart: Mild cardiomegaly. No pericardial effusion.. Moderate coronary artery calcifications. No intra ventricular septal bowing. No reflux of contrast into the IVC. Vasculature: No evidence of aortic aneurysm. Atherosclerotic calcification of the aorta and its branc hes. Mediastinum: No gross evidence of adenopathy. Musculoskeletal: No acute osseous abnormalities. Healing anterior left-sided rib fractures. Chronic c entral compression fracture of the T11 vertebral body. Soft Tissues: Unremarkable. Lower neck: No significant findings. Upper Abdomen: Moderate-sized hiatal hernia.. IMPRESSION: 1. Acute pulmonary emboli involving the right middle and lower lobe segmental and subsequent of pulmo nary arteries. No evidence for right heart strain. 2. Patchy groundglass opacities within the left upper lobe concerning for atypical pneumonia. 3. Small bilateral pleural effusions with associated atelectasis. 4. Moderate-sized lateral hernia. Pulmonary emboli findings relayed to ordering physician at 10:33 AM via [employer]
[2023-01-02 11:11] LABS: Basophils % (A) 0 %; Eosinophils # (A) 0.2 k/uL (0-0.7); Eosinophils % (A) 3 %; HCT 25.6 % (34.0-46.0); HGB 8.8 gm/dL (11.4-16.0); Lymphocytes # (A) 0.8 k/uL (1.0-4.8); Lymphocytes % (A) 12 %; MCH 31.7 pg (25.0-35.0); MCHC 34.4 g/dL (31.0-37.0); MCV 92.1 fL (80.0-100.0); Mean Platelet Volume 8.4; Monocytes # (A) 0.7 k/uL (0-1.0); Monocytes % (A) 10 %; Neutrophils # (A) 4.9 k/uL (1.3-7.7); Neutrophils % (A) 72 %; Platelet Count 192 k/uL (150-450); RBC 2.78 m/uL (3.80-5.40); RDW 14.5 % (11.5-15.5); WBC 6.9 k/uL (3.8-10.6)
[2023-01-02 11:37] LABS: INR 0.9 (<1.2); Partial Thromboplastin Time 24.2 sec (22.0-30.0)
[2023-01-02 12:52] VITALS: BMI 18.0
--- NOTE | 2023-01-02 13:16 | CA ---
Transthoracic Echo Report Name: Angel Gomez Age: 82 Gender: F : 1940 Exam Date: 01/02/2023 11:33 Exam Location: [facility] Ht (in): 66 Wt (lb): 111 Ordering Physician: Ryann Carty MD ([id number]) Attending/Referring Phys: Sock Mender Jaquelin Mensah RDCS Procedure CPT: Indications: LV function Cardiac Hx: Technical Quality: Fair Contrast 1: Total Dose (mL): Contrast 2: Total Dose (mL): MEASUREMENTS (Male / Female) Normal Values 2D ECHO LV Diastolic Diameter PLAX 4.1 cm 4.2 - 5.9 / 3.9 - 5.3 cm LV Systolic Diameter PLAX 2.6 cm IVS Diastolic Thickness 1.4 cm 0.6 - 1.0 / 0.6 - 0.9 cm LVPW Diastolic Thickness 1.2 cm 0.6 - 1.0 / 0.6 - 0.9 cm LV Relative Wall Thickness 0.6 RV Internal Dim ED PLAX 2.0 cm LVOT Diameter 2.3 cm LA Systolic Diameter LX 3.8 cm 3.0 - 4.0 / 2.7 - 3.8 cm LV Diastolic Volume MOD 4C 78.2 cm??? LV Systolic Volume MOD 4C 38.9 cm??? LV Ejection Fraction MOD 4C 50.2 % LV Cardiac Index MOD 4C 1676.6 cm???/min???m??? LV Diastolic Length 4C 7.3 cm LV Systolic Length 4C 6.1 cm LV Diastolic Volume MOD 2C 82.6 cm??? LV Systolic Volume MOD 2C 43.8 cm??? LV Ejection Fraction MOD 2C 47.0 % LV Cardiac Index MOD 2C 1659.5 cm???/min???m??? LV Diastolic Length 2C 7.5 cm LV Systolic Length 2C 6.2 cm LA Volume 43.3 cm??? 18 - 58 / 22 - 52 cm??? M-MODE Aortic Root Diameter MM 3.4 cm MV E Point Septal Separation 0.6 cm AV Cusp Separation MM 2.0 cm DOPPLER AV Peak Velocity 129.8 cm/s AV Peak Gradient 6.7 mmHg MV Area PHT 3.5 cm??? Mitral E Point Velocity 90.7 cm/s Mitral A Point Velocity 103.1 cm/s Mitral E to A Ratio 0.9 MV Deceleration Time 214.5 ms MV E' Velocity 4.8 cm/s Mitral E to MV E' Ratio 18.9 TR Peak Velocity 257.2 cm/s TR Peak Gradient 26.5 mmHg Right Ventricular Systolic Press 35.0 mmHg FINDINGS Left Ventricle Left ventricular ejection fraction is estimated at 50-55 %. Left ventricular cavity size normal. Mildly increased left ventricular wall thickness. Right Ventricle Normal right ventricular size. Right Atrium Normal right atrial size. Left Atrium Normal left atrial size. Mitral Valve Mitral valve thickened. Mild mitral annular calcification.moderate mitral regurgitation. Aortic Valve Aortic valve not well visualized. Tricuspid Valve Structurally normal tricuspid valve. Mild tricuspid regurgitation. Pulmonic Valve Pulmonic valve not well visualized. Pericardium No pericardial effusion. Aorta Normal size aortic root and proximal ascending aorta. CONCLUSIONS Technically difficult study. 1. Left ventricle systolic function borderline normal 2. Moderate mitral with mild tricuspid regurgitation Previewed by: Dr. Audi Nathan MD (Electronically Signed) Final Date: 02 January 2023 13:16
[2023-01-02] MEDS ORDERED: AMIODARONE 450 MG in DEXTROSE 5% IN WATER 250 ML IV SCH ×2 (15:30)
--- NOTE | 2023-01-02 16:56 | P.PN ---
Subjective Progress Note Date: 01/02/23 This is a 82-year-old female who is status post ORIF of left proximal third femur fracture with trochanteric nailing. This is postoperative day #4 and patient is seen and evaluated at bedside today. Patient denies any new complaints today. Objective - Vital Signs Vital signs: Vital Signs Temp 98.3 F 01/02/23 16:19 Pulse 62 01/02/23 16:19 Resp 16 01/02/23 16:19 BP 108/52 01/02/23 16:19 Pulse Ox 94 L 01/02/23 16:19 FiO2 99 12/29/22 08:57 Intake & Output 01/01/23 01/02/23 01/02/23 18:59 06:59 18:59 Intake Total 740 20 Output Total 650 1100 300 Balance 90 -1080 -300 Weight 50.6 kg 50.6 kg Intake: IV 20 20 Invasive Line 3 20 20 Oral 720 Output: Urine 650 1100 300 Other: Voiding Method Indwelling Catheter Indwelling Catheter Indwelling Catheter # Bowel Movements 1 - Exam On exam patient is lying comfortably in bed in no acute distress. Patient is alert. Dressing is clean, dry and intact. No drainage. No erythema. Calf is soft and nontender to palpation. Sensation intact. Neurovascular status and c irculatory status are intact. - Labs CBC & Chem 7: 01/02/23 10:17 01/02/23 07:02 Labs: Abnormal Lab Results - Last 24 Hours (Table) 01/01/23 01/01/23 01/02/23 Range/Units 16:47 16:47 07:02 RBC 2.93 L 2.81 L (3.80-5.40) m/uL Hgb 9.0 L 8.8 L (11.4-16.0) gm/dL Hct 27.6 L 26.3 L (34.0-46.0) % Lymphocytes # (1.0-4.8) k/uL D-Dimer (<0.60) mg/L FEU Sodium (137-145) mmol/L Creatinine (0.52-1.04) mg/dL Calcium (8.4-10.2) mg/dL Troponin I 0.063 H* (0.000-0.034) ng/mL 01/02/23 01/02/23 01/02/23 Range/Units 07:02 10:17 10:17 RBC 2.78 L (3.80-5.40) m/uL Hgb 8.8 L (11.4-16.0) gm/dL Hct 25.6 L (34.0-46.0) % Lymphocytes # 0.8 L (1.0-4.8) k/uL D-Dimer 6.68 H (<0.60) mg/L FEU Sodium 134 L (137-145) mmol/L Creatinine 0.49 L (0.52-1.04) mg/dL Calcium 7.7 L (8.4-10.2) mg/dL Troponin I (0.000-0.034) ng/mL Assessment and Plan Assessment: Status post ORIF of left proximal third femur fracture with trochanteric nailing. (1) Fall Current Visit: Yes Status: Acute Code(s): W19.XXXA - UNSPECIFIED FALL, INITIAL ENCOUNTER SNOMED Code(s): 3389692 (2) Fracture, proximal femur Current Visit: Yes Status: Acute Code(s): S72.009A - FRACTURE OF UNSP PART OF NECK OF UNSP FEMUR, INIT SNOMED Code(s): 967081997 Plan: 1. Nonweightbearing to the left lower extremity. Patient has a pneumatic boot for a ulcer on the left heel. 2. Anticoagulation per internal medicine. 3. Patient will need inpatient rehabilitation once medically stable. We will continue to follow.
[2023-01-02] MEDS: METOPROLOL TARTRATE 50 MG TAB PO SCH (20:17)
[2023-01-02] MEDS: SENNOSIDES-DOCUSATE SODIUM 1 EACH TAB PO SCH (20:18)
--- NOTE | 2023-01-03 06:02 | PN ---
PROGRESS NOTE SUBJECTIVE: This is an 82-year-old lady, who had a fracture of the femur, followed by surgery, and postoperatively she developed atrial fibrillation with a rapid ventricular rate. She has a history of CVA, chronic back pain, hyperlipidemia, and she had a mechanical fall with fracture of the left femur, underwent open reduction and internal fixation. Postoperatively, she developed atrial fibrillation and we were asked to see her. She has what seems to be mild congestive heart failure type picture with an ejection fraction historically of about 45% to 50% with mild mitral regurgitation. She is in atrial fibrillation. The rate is moderate. I will initiate her on IV amiodarone and also increase oral beta becky and based on clinical course, we will make further recommendations. She is currently not anticoagulated. There was a question of some drop in hemoglobin. She received 3 units of packed RBCs as well. I will increase metoprolol and we will do subcu heparin and intravenous amiodarone. If she converts however, I will keep her on oral amiodarone. OBJECTIVE: VITAL SIGNS: Stable. NECK: JVD 1 cm. No carotid bruit. CARDIOVASCULAR: S1, S2 heard normally. Tachycardic, irregular rate and rhythm noted. Short systolic murmur noted. LUNGS: Reveal fair air entry. ABDOMEN: Soft. EXTREMITIES: Lower extremity exam was deferred. We will check echocardiogram to assess LV function as well. ANAML / IJN: [id number] /
[2023-01-03] MEDS: HYDROmorphone 0.5 MG/0.5 ML SYRINGE IVP PRN (06:43)
[2023-01-03] MEDS: PANTOPRAZOLE 40 MG TABLET PO SCH (06:56)
[2023-01-03 07:24] LABS: Basophils % (A) 0 %; Eosinophils % (A) 0 %; HCT 27.4 % (34.0-46.0); Lymphocytes # (A) 0.7 k/uL (1.0-4.8); Lymphocytes % (A) 10 %; MCH 31.4 pg (25.0-35.0); MCV 95.1 fL (80.0-100.0); Mean Platelet Volume 9.2; Monocytes # (A) 0.4 k/uL (0-1.0); Monocytes % (A) 6 %; Neutrophils # (A) 5.4 k/uL (1.3-7.7); Neutrophils % (A) 81 %; Platelet Count 244 k/uL (150-450); RBC 2.88 m/uL (3.80-5.40); WBC 6.6 k/uL (3.8-10.6)
[2023-01-03] MEDS: FLUoxetine HCL 20 MG CAP PO SCH (08:41)
[2023-01-03] MEDS: LORATADINE 10 MG TAB PO SCH (08:42)
[2023-01-03] MEDS: busPIRone HCl 5 MG TAB PO SCH ×2 (08:42→19:48)
[2023-01-03] MEDS: AMIODARONE 200 MG TAB PO SCH (08:42)
[2023-01-03] MEDS: CHOLECALCIFEROL 25 MCG (1000 IU) TABLET PO SCH (08:42)
[2023-01-03] MEDS: ALBUTEROL NEBULIZED 2.5 MG/3 ML INHALATION SCH ×4 (08:49→21:06)
[2023-01-03] MEDS: METOPROLOL TARTRATE 50 MG TAB PO SCH (09:01)
--- NOTE | 2023-01-03 09:35 | P.PN ---
Subjective Progress Note Date: 01/03/23 82 year old woman with history of dementia, COPD on 2 L, essential tremors, history of CVA, chronic back pain, hyperlipidemia presented after mechanical fall resulted in right femur fracture. In the emergency room, patient was afebrile, 160/81, heart rate 60, 100% on 2 L nasal cannula. CBC is unremarkab le. Basic metabolic panel shows mildly elevated BUN 19, otherwise unremarkable. Albumin is 3.2 on liver function test. Coags were unremarkable. EKG shows normal sinus rhythm with right axis deviation, otherwise unremarkable. Chest x- ray is a poor study due to rotation, appears to have a normal size heart, hyperinflated lungs. Cervical spine x-ray shows mild to moderate spondylytic change as well as degenerative grade retrolisthesis of C5 to C6 and C6 to C7. Femur and pelvis x-ray showed oblique fracture of the proximal left femur extending into the medial base of the femoral neck [place] lateral femoral cortex of the proximal shaft. Case was discussed with emergency room provider d ecision was made to admit the patient to the hospital for further evaluation of the fracture. On 12/28, patient had atrial fibrillation with RVR before patient's while she was in preop. Patient appeared to have heart rates in the 180s to 200s, pressures are stable in the 140s / 80s. EKG which demonstrated atrial fibrillation with RVR rates 180. She received 5 mg of IV metoprolol, heart rates improved to 140-160, pressure decreased to 108/70. After another 5 mg of IV metoprolol as well as 1 mg of Dilaudid for pain control and heart rates improved to sinus rhythm. She underwent ORIF left proximal third femur with trochanteric nailing on 12/29. A-team called on 12/30 for AFib with RVR, noted to have a drop in Hg to 7.7. She received 2 unit PRBC which improved her heart rate. Noted to be back in A. fib with RVR on 01/02, CTA chest ordered positive for PE. Currently on heparin drip for anticoagulation. Also started on amiodarone drip and transition to amiodarone 200 mg by mouth twice a day. Continued on metoprolol 50 mg by mouth twice a day. 01/03 Patient was seen and examined. No acute events overnight. BP 93/50 P 62 RR 16 99% on 2L NC. CBC shows Hg 9. APTT 29.7. CBC shows Hg 9. Heparin drip switched to Eliquis today. Plans for [facility] on discharge. Discussed with RN, patient has audible wheezing and appears anxious. Given that she is also hypotensive, patient is high risk for re-admission, we will continue to monitor the patient overnight with hopeful plans for discharge tomorrow. General: non toxic, no distress, appears at stated age Derm: warm, dry Head: atraumatic, normocephalic, symmetric Eyes: EOMI, no lid lag, anicteric sclera Mouth: no lip lesion, mucus membranes moist Cardiovascular: S1S2 irregular, no murmur Lungs: CTA bilateral, no rhonchi, no rales , no accessory muscle use Abdominal: soft, nontender to palpation Ext: no gross muscle atrophy, no edema, no contractures Psych: Alert x oriented x 1-2 Pulmonary embolus Paroxysmal atrial fibrillation with RVR Acute Blood Loss Anemia Preoperative clearance Left femur fracture Mechanical fall Hyperactive delirium in the setting of dementia COPD without exacerbation, chronic respiratory failure requiring 2 L of nasal cannula History of CVA Chronic back pain Hyperlipidemia Based on my assessment of this patient, this patient meets a moderate complexity level of care. Patient has an acute diagnosis of left femur fracture with severe exacerbation or progression of disease which poses a threat to life or bodily function. Status post ORIF left proximal third femur with trochanteric nailing on 12/29. Pos t operative complications including atrial fibrillation with RVR, acute blood loss anemia requiring 2 units PRBC, diagnosis of acute pulmonary embolus. Currently on heparin drip. Currently on amiodarone and metoprolol. Plans for [facility] on discharge. Pulmonary embolus: Hopeful plans to transition to oral anticoagulant today. Monitor APTT daily while on Heparin drip. Paroxysmal atrial fibrillation with RVR: Multifactorial. Cardiology on board. Continue amiodarone 200 mg by mouth twice a day. Decrease metoprolol to 25 mg by mouth twice a day. Acute Blood Loss Anemia: Status post 2 unit PRBC. Stable. Preoperative clearance Left femur fracture: Orthopedic surgery on board. Status post ORIF left proximal third femur with trochanteric nailing on 12/29. Nonweightbearing left lower extremity. Mechanical fall: Fall precautions. Hyperactive delirium in the setting of dementia COPD without exacerbation, chronic respiratory failure requiring 2 L of nasal cannula History of CVA Chronic back pain Hyperlipidemia Protonix 40 mg PO QD for GI prophylaxis. Heparin drip for DVT prophylaxis. FULL CODE. Dispo: Plans for discharge to [facility] if BP improved tomorrow. I have reviewed the following surgical product sales consultant notes: Orthopedic surgery note. I have reviewed the results of the following tests: CBC, APTT. I have ordered the following tests: I have discussed the care of this patient with the following independent historian: Discussed with RN and case management. I have independently interpreted the following test below: I have discussed the management of this patient with the following physician: Objective - Vital Signs Vital signs: Vital Signs Temp 98.0 F 01/03/23 08:39 Pulse 62 01/03/23 08:39 Resp 16 01/03/23 08:39 BP 93/50 01/03/23 08:39 Pulse Ox 99 01/03/23 08:39 FiO2 99 12/29/22 08:57 Intake & Output 01/02/23 01/03/23 01/03/23 18:59 06:59 18:59 Intake Total 69.069 197.798 Output Total 300 500 500 Balance -230.931 -302.202 -500 Weight 50.6 kg Intake: Intake, IV Titration 69.069 77.798 Amount Heparin Sod,Pork in 0.45% 69.069 77.798 NaCl 25,000 unit In 0.45 % NaCl 1 250ml.bag @ 18 UNITS/KG/HR 9.108 mls/hr IV .Q24H [facility] Rx#: [id number] Oral 120 Output: Urine 300 500 500 Other: Voiding Method Indwelling Catheter Indwelling Catheter # Bowel Movements 1 - Labs CBC & Chem 7: 01/03/23 03:16 01/02/23 07:02 Labs: Abnormal Lab Results - Last 24 Hours (Table) 01/02/23 01/02/23 01/02/23 Range/Units 10:17 10:17 15:17 RBC 2.78 L (3.80-5.40) m/uL Hgb 8.8 L (11.4-16.0) gm/dL Hct 25.6 L (34.0-46.0) % Lymphocytes # 0.8 L (1.0-4.8) k/uL APTT 117.8 H* (22.0-30.0) sec D-Dimer 6.68 H (<0.60) mg/L FEU 01/03/23 Range/Units 03:16 RBC 2.88 L (3.80-5.40) m/uL Hgb 9.0 L (11.4-16.0) gm/dL Hct 27.4 L (34.0-46.0) % Lymphocytes # 0.7 L (1.0-4.8) k/uL APTT (22.0-30.0) sec D-Dimer (<0.60) mg/L FEU
--- NOTE | 2023-01-03 10:58 | P.PN ---
Subjective Progress Note Date: 01/03/23 This is a 82-year-old female who is status post ORIF of left proximal third femur fracture with trochanteric nailing. This is postoperative day #5 and patient is seen and evaluated at bedside today. Patient denies any new complaints today. Objective - Vital Signs Vital signs: Vital Signs Temp 98.0 F 01/03/23 08:39 Pulse 62 01/03/23 08:39 Resp 16 01/03/23 08:39 BP 93/50 01/03/23 08:39 Pulse Ox 99 01/03/23 08:39 FiO2 99 12/29/22 08:57 Intake & Output 01/02/23 01/03/23 01/03/23 18:59 06:59 18:59 Intake Total 69.069 197.798 Output Total 300 500 500 Balance -230.931 -302.202 -500 Weight 50.6 kg Intake: Intake, IV Titration 69.069 77.798 Amount Heparin Sod,Pork in 0.45% 69.069 77.798 NaCl 25,000 unit In 0.45 % NaCl 1 250ml.bag @ 18 UNITS/KG/HR 9.108 mls/hr IV .Q24H [facility] Rx#: [id number] Oral 120 Output: Urine 300 500 500 Other: Voiding Method Indwelling Catheter Indwelling Catheter Indwelling Catheter # Bowel Movements 1 - Exam On exam patient is lying comfortably in bed in no acute distress. Patient is alert. Incisions are clean, dry and intact. No drainage. No erythema. Calf is soft and nontender to palpation. Sensation intact. Neurovascular status and circulatory status are intact. - Labs CBC & Chem 7: 01/03/23 03:16 01/02/23 07:02 Labs: Abnormal Lab Results - Last 24 Hours (Table) 01/02/23 01/02/23 01/02/23 Range/Units 10:17 10:17 15:17 RBC 2.78 L (3.80-5.40) m/uL Hgb 8.8 L (11.4-16.0) gm/dL Hct 25.6 L (34.0-46.0) % Lymphocytes # 0.8 L (1.0-4.8) k/uL APTT 117.8 H* (22.0-30.0) sec D-Dimer 6.68 H (<0.60) mg/L FEU 01/03/23 Range/Units 03:16 RBC 2.88 L (3.80-5.40) m/uL Hgb 9.0 L (11.4-16.0) gm/dL Hct 27.4 L (34.0-46.0) % Lymphocytes # 0.7 L (1.0-4.8) k/uL APTT (22.0-30.0) sec D-Dimer (<0.60) mg/L FEU Assessment and Plan Assessment: Status post ORIF of left proximal third femur fracture with trochanteric nailing. (1) Fall Current Visit: Yes Status: Acute Code(s): W19.XXXA - UNSPECIFIED FALL, INITIAL ENCOUNTER SNOMED Code(s): 3184141 (2) Fracture, proximal femur Current Visit: Yes Status: Acute Code(s): S72.009A - FRACTURE OF UNSP PART OF NECK OF UNSP FEMUR, INIT SNOMED Code(s): 076895669 Plan: 1. Nonweightbearing to the left lower extremity. Patient has a pneumatic boot for a ulcer on the left heel. 2. Anticoagulation per internal medicine. 3. Patient will need inpatient rehabilitation once medically stable. We will continue to follow.
[2023-01-03] MEDS ORDERED: APIXABAN 5 MG TAB PO STA (12:25)
[2023-01-03] MEDS: HEPARIN SOD,PORK IN 0.45% NACL 25,000 UNIT in 0.45% NACL 1 250ML.BAG IV SCH (12:59)
[2023-01-03] MEDS: ALPRAZolam 0.5 MG TAB PO PRN (15:45)
[2023-01-03] MEDS: SENNOSIDES-DOCUSATE SODIUM 1 EACH TAB PO SCH (19:48)
[2023-01-03] MEDS: APIXABAN 5 MG TAB PO SCH (19:48)
[2023-01-03] MEDS: METOPROLOL TARTRATE 25 MG TAB PO SCH (19:48)
[2023-01-03] MEDS: traMADol 50 MG TAB PO PRN (19:49)
[2023-01-03] MEDS ORDERED: APIXABAN 2.5 MG TABLET PO SCH (21:00)
[2023-01-04 03:54] VITALS: RESP 16
--- NOTE | 2023-01-04 05:39 | PN ---
PROGRESS NOTE SUBJECTIVE: Ms. Gomez is in sinus rhythm, comfortable. She is hemodynamically stable and going through her cardiac rehab without issue. CTA yesterday suggests Pul Embolism without strain.Agree with Eliquis, concern is low Hemoglobin with need for PRBC transfusion. Will do 5mg BID. Also has Afib now in Sinus. OBJECTIVE: VITAL SIGNS: Stable. I am recommending we decrease the amiodarone and betablocker dosing and increase activity and hopefully she can be discharged to rehab and then come back and follow up with Dr. Taveras in the office in 2 weeks. She will be on Eliquis 5 mg b.i.d., amiodarone 200 mg daily, and metoprolol tartrate 25 mg b.i.d. She can be discharged to rehab today. MMODL / IJN: [id number] / MTDD
[2023-01-04] MEDS: traMADol 50 MG TAB PO PRN (08:01)
[2023-01-04] MEDS: busPIRone HCl 5 MG TAB PO SCH (08:01)
[2023-01-04] MEDS: CHOLECALCIFEROL 25 MCG (1000 IU) TABLET PO SCH (08:01)
[2023-01-04] MEDS: METOPROLOL TARTRATE 25 MG TAB PO SCH (08:02)
[2023-01-04] MEDS: APIXABAN 5 MG TAB PO SCH (08:02)
[2023-01-04] MEDS: FLUoxetine HCL 20 MG CAP PO SCH (08:02)
[2023-01-04] MEDS: LORATADINE 10 MG TAB PO SCH (08:02)
[2023-01-04] MEDS: ALBUTEROL NEBULIZED 2.5 MG/3 ML INHALATION SCH ×2 (08:46→11:39)
[2023-01-04] MEDS ORDERED: AMIODARONE 200 MG TAB PO SCH (09:00)
--- NOTE | 2023-01-04 09:21 | P.PN ---
Subjective Progress Note Date: 01/04/23 This is a 82-year-old female who is status post ORIF of left proximal third femur fracture with trochanteric nailing. This is postoperative day #6 and patient is seen and evaluated at bedside today. Patient denies any new complaints today. Objective - Vital Signs Vital signs: Vital Signs Temp 98.0 F 01/04/23 08:00 Pulse 80 01/04/23 08:56 Resp 16 01/04/23 08:00 BP 131/57 01/04/23 08:00 Pulse Ox 97 01/04/23 08:49 FiO2 99 12/29/22 08:57 Intake & Output 01/03/23 01/04/23 01/04/23 18:59 06:59 18:59 Intake Total 180 Output Total 500 850 Balance -500 -850 180 Intake: Oral 180 Output: Urine 500 850 Other: Voiding Method Indwelling Catheter - Exam On exam patient is lying comfortably in bed in no acute distress. Patient is alert but confused. Incisions are clean, dry and intact. No drainage. No erythema. Calf is soft and nontender to palpation. Sensation intact. Neurovascular status and circulatory status are intact. - Labs CBC & Chem 7: 01/03/23 03:16 01/02/23 07:02 Assessment and Plan Assessment: Status post ORIF of left proximal third femur fracture with trochanteric nailing. (1) Fall Current Visit: Yes Status: Acute Code(s): W19.XXXA - UNSPECIFIED FALL, INITIAL ENCOUNTER SNOMED Code(s): 0158155 (2) Fracture, proximal femur Current Visit: Yes Status: Acute Code(s): S72.009A - FRACTURE OF UNSP PART OF NECK OF UNSP FEMUR, INIT SNOMED Code(s): 029851029 Plan: 1. Nonweightbearing to the left lower extremity. Patient has a pneumatic boot for a ulcer on the left heel. 2. Anticoagulation per internal medicine. 3. Patient will need inpatient rehabilitation once medically stable. We will continue to follow.
[2023-01-04] MEDS: PANTOPRAZOLE 40 MG TABLET PO SCH (11:12)
--- NOTE | 2023-01-04 11:25 | P.DS ---
Providers Date of admission: 12/27/22 16:28 Expected date of discharge: 01/04/23 Attending physician: Jennifer Pike, Consults: 12/27/22 16:28 Consult Physician Routine Consulting Provider: Pablo Dave Consult Reason/Comments: hip fx Do you want consulting provider notified?: Yes 12/30/22 14:21 Consult Physician Routine Consulting Provider: Tony Melara Consult Reason/Comments: a fib with rvr Do you want consulting provider notified?: Yes Primary care physician: [facility] Course: 82 year old woman with history of dementia, COPD on 2 L, essential tremors, history of CVA, chronic back pain, hyperlipidemia presented after mechanical fall resulted in right femur fracture. In the emergency room, patient was afebrile, 160/81, heart rate 60, 100% on 2 L nasal cannula. CBC is unremarkable. Basic metabolic panel shows mildly elevated BUN 19, otherwise unremarkable. Albumin is 3.2 on liver function test. Coags were unremarkable. EKG shows normal sinus rhythm with right axis deviation, otherwise unremarkable. Chest x-ray is a poor study due to rotation, appears to have a normal size heart, hyperinflated lungs. Cervical spine x-ray shows mild to moderate spondylytic change as well as degenerative grade retrolisthesis of C5 to C6 and C6 to C7. Femur and pelvis x-ray showed oblique fracture of the proximal left femur extending into the medial base of the femoral neck [place] lateral femoral cortex of the proximal shaft. Case was discussed with emergency room provider decision was made to admit the patient to the hospital for further evaluation of the fracture. On 12/28, patient had atrial fibrillation with RVR before patient's while she was in preop. Patient appeared to have heart rates in the 180s to 200s, pressures are stable in the 140s / 80s. EKG which demonstrated atrial fibrillation with RVR rates 180. She received 5 mg of IV metoprolol, heart rates improved to 140-160, pressure decreased to 108/70. After another 5 mg of IV metoprolol as well as 1 mg of Dilaudid for pain control and heart rates improved to sinus rhythm. She underwent ORIF left proximal third femur with trochanteric nailing on 12/29. A-team called on 12/30 for AFib with RVR, noted to have a drop in Hg to 7.7. She received 2 unit PRBC which improved her heart rate. Noted to be back in A. fib with RVR on 01/02, CTA chest ordered positive for PE. Currently on heparin drip for anticoagulation. Also started on amiodarone drip and transition to amiodarone 200 mg by mouth twice a day. Continued on metoprolol 50 mg by mouth twice a day. 01/03 Patient was seen and examined. No acute events overnight. BP 93/50 P 62 RR 16 99% on 2L NC. CBC shows Hg 9. APTT 29.7. CBC shows Hg 9. Heparin drip switched to Eliquis today. Plans for [facility] on discharge. Discussed with RN, patient has audible wheezing and appears anxious. Given that she is also hypotensive, patient is high risk for re-admission, we will continue to monitor the patient overnight with hopeful plans for discharge tomorrow. 01/04 Patient was seen and examined. No acute events overnight. Appears stable. BP 131/57 P 76 RR 16 97% on 2L NC. Discussed with Dr. Carty, continue Eliquis 5 mg PO BID (lowered dose due to history of falls) for treatment of PE, Amiodarone 200 mg PO QD and Metoprolol 25 mg PO BID. Follow up with Cardiology within 1 week of discharge. Follow up with Orthopedic surgery within 2 weeks of discharge. Follow up with PCP within 1-2 days of discharge. Strict non weight bearing LLE Pertinent studies include CXR, CT C spine, Femur/Pelvis XR, Echocardiogram, chest CTA Pertinent procedures include open reduction and internal fixation left proximal third femur fracture with trochanteric nailing General: non toxic, no distress, appears at stated age Derm: warm, dry Head: atraumatic, normocephalic, symmetric Eyes: EOMI, no lid lag, anicteric sclera Mouth: no lip lesion, mucus membranes moist Cardiovascular: S1S2 irregular, no murmur Lungs: CTA bilateral, no rhonchi, no rales , no accessory muscle use Abdominal: soft, nontender to palpation Ext: no gross muscle atrophy, no edema, no contractures Psych: Alert x oriented x 1-2 Discharge Diagnosis: Pulmonary embolus Paroxysmal atrial fibrillation with RVR Acute Blood Loss Anemia Preoperative clearance Left femur fracture Mechanical fall Hyperactive delirium in the setting of dementia COPD without exacerbation, chronic respiratory failure requiring 2 L of nasal cannula History of CVA Chronic back pain Hyperlipidemia This complex discharge took 35 minutes to complete. Patient Condition at Discharge: Stable Plan - Discharge Summary Discharge Rx Participant: Yes New Discharge Prescriptions: New Amiodarone [Cordarone] 200 mg PO DAILY tab Metoprolol Tartrate [Lopressor] 25 mg PO BID tab Sennosides-Docusate Sodium [Senokot-S] 2 each PO HS tab traMADol HCl [Ultram] 50 mg PO Q6H PRN #12 tab PRN Reason: Pain Scale 1 To 5 Apixaban [Eliquis] 5 mg PO BID tab Continue Omeprazole 40 mg PO DAILY Acetaminophen Tab [Tylenol] 500 mg PO Q6HR PRN PRN Reason: Pain busPIRone HCl [Buspar] 5 mg PO BID Albuterol Inhaler [Ventolin Hfa Inhaler] 2 puff INHALATION RT-Q4H PRN #1 each PRN Reason: Shortness Of Breath Cetirizine HCl [Zyrtec] 10 mg PO DAILY ALPRAZolam [Xanax] 0.5 mg PO BID PRN #6 tab PRN Reason: Anxiety FLUoxetine HCL [PROzac] 40 mg PO DAILY Cholecalciferol [Vitamin D3 (25 Mcg = 1000 Iu)] 25 mcg PO DAILY Albuterol Nebulized [Ventolin Nebulized] 2.5 mg INHALATION RT-QID Fluticasone/Umeclidin/Vilanter [Trelegy Ellipta 100-62.5-25] 1 puff INHALATION RT-DAILY Discontinued Propranolol [Inderal] 40 mg PO BID Diclofenac Sodium Gel [Voltaren Gel] 2 gm TOPICAL QID PRN PRN Reason: Pain Meloxicam [Mobic] 15 mg PO DAILY Aspirin 81 mg PO DAILY Discharge Medication List Omeprazole 40 mg PO DAILY 08/24/17 [History] FLUoxetine HCL [PROzac] 40 mg PO DAILY 05/21/21 [History] Acetaminophen Tab [Tylenol] 500 mg PO Q6HR PRN 10/30/21 [History] busPIRone HCl [Buspar] 5 mg PO BID 10/30/21 [History] Albuterol Inhaler [Ventolin Hfa Inhaler] 2 puff INHALATION RT-Q4H PRN #1 each 07/01/22 [Rx] Albuterol Nebulized [Ventolin Nebulized] 2.5 mg INHALATION RT-QID 04/05/23 [History] Cetirizine HCl [Zyrtec] 10 mg PO DAILY 07/27/22 [History] Cholecalciferol [Vitamin D3 (25 Mcg = 1000 Iu)] 25 mcg PO DAILY 07/27/22 [History] Fluticasone/Umeclidin/Vilanter [Trelegy Ellipta 100-62.5-25] 1 puff INHALATION RT-DAILY 11/14/22 [History] ALPRAZolam [Xanax] 0.5 mg PO BID PRN #6 tab 01/04/23 [Rx] Amiodarone [Cordarone] 200 mg PO DAILY tab 01/04/23 [Rx] Apixaban [Eliquis] 5 mg PO BID tab 01/04/23 [Rx] Metoprolol Tartrate [Lopressor] 25 mg PO BID tab 01/04/23 [Rx] Sennosides-Docusate Sodium [Senokot-S] 2 each PO HS tab 01/04/23 [Rx] traMADol HCl [Ultram] 50 mg PO Q6H PRN #12 tab 01/04/23 [Rx] Follow up Appointment(s)/Referral(s): Ryann Carty MD [STAFF PHYSICIAN] - 1 Week Pablo Dave DO [Doctor of Osteopathic Medicine] - 2 Weeks Pablo De La Garza DO [Primary Care Provider] - 1-2 days Activity/Diet/Wound Care/Special Instructions: 1. Strict nonweightbearing on the left lower extremity 2. Dressing changes over the left hip and femur twice per day as needed 3. Patient may shower without dressing intact over the left hip and femur surgical incision site is clean and dry 4. May apply ice over the left hip and femur for comfort support as needed 5. Take medications as prescribed Discuss with your PCP the need for restarting Aspirin and being started on a statin for history of CVA. Discharge Disposition: TRANSFER TO SNF/ECF
[2023-01-04 13:04] VITALS: BP 134/67; PULSE 70; TEMP 98.4
--- NOTE | 2023-01-04 13:19 | PN ---
PROGRESS NOTE SUBJECTIVE: Ms. Gomez is in sinus rhythm. She is status post fracture of her femur. She also has a pulmonary embolism which is without strain. She has paroxysmal atrial fibrillation. She is currently on Eliquis 5 mg b.i.d. Hemoglobin is stable. She feels better. Complains of generalized weakness and lack of energy. She will probably be transferred to a rehab facility. OBJECTIVE: VITAL SIGNS: Stable. HEART: S1, S2 heard normally. Short systolic murmur. Rhythm is regular. LUNGS: Revealed decent air entry. ABDOMEN: Soft. LOWER EXTREMITIES: Deferred. MMODL / IJN: [id number] /
--- NOTE | 2023-01-06 11:53 | CDI ---
Documentation Clarification Form Date: 01/06/23 From: Kassidy Quigley Admit Date: 12/27/2022 04:28:00 PM Patient Name: Angel Gomez Visit Number: [id number] Discharge Date: 01/04/2023 01:34:00 PM ATTENTION: The Clinical Documentation Specialists (CDI) and [facility] Coding Staff appreciate your assistance in clarifying documentation. Please respond to the clarification below the line at the bottom and electronically sign. The CDI & [facility] Coding staff will review the response and follow-up if needed. Please note: Queries are made part of the Legal Health Record. If you have any questions, please contact the author of this message via ITS. Dr. Maricarmen Ambrocio, There is documentation of chronic respiratory failure in the H&P, PNs and DS. Additional clarification of the acuity of the condition is requested. History/Risk Factors: spiral fx of left femur, dementia, HTN w heart failure, COPD Clinical Indicators: COPDwithoutexacerbation,chronic respiratory failurerequiring 2 L of nasal Can you please clarify the type of the chronic respiratory failure? [x ] Hypoxic [ ] Hypercapnia [ ] Hypercarbia [ ] Other, please specify [ ] Unable to determine MTDD
== END 2023-01-04 13:34 | DRG 480 ==
LOC: EC 14:05 → 4SSUR 16:28 → 3SCARD 12-28 16:58
PROVIDERS: ADMIT Internal Medicine; ATTEND Internal Medicine
PROC: 0QS704Z Reposition Left Upper Femur with Internal Fixation Device, Open Approach (ICD-10-PCS; principal; 2022-12-29 11:10)
PROC: 30233N1 Transfusion of Nonautologous Red Blood Cells into Peripheral Vein, Percutaneous Approach (ICD-10-PCS; 2022-12-30)
DX: S72.342A Displaced spiral fracture of shaft of left femur, initial encounter for closed fracture (principal); I26.99 Other pulmonary embolism without acute cor pulmonale; J96.11 Chronic respiratory failure with hypoxia; D62 Acute posthemorrhagic anemia; F03.94 Unspecified dementia, unspecified severity, with anxiety; F03.93 Unspecified dementia, unspecified severity, with mood disturbance; F05 Delirium due to known physiological condition; I11.0 Hypertensive heart disease with heart failure; I95.9 Hypotension, unspecified; I50.9 Heart failure, unspecified; I48.0 Paroxysmal atrial fibrillation; J44.9 Chronic obstructive pulmonary disease, unspecified; Z20.822 Contact with and (suspected) exposure to COVID-19; I08.1 Rheumatic disorders of both mitral and tricuspid valves; E78.5 Hyperlipidemia, unspecified; E86.1 Hypovolemia; M43.12 Spondylolisthesis, cervical region; G89.29 Other chronic pain; M54.9 Dorsalgia, unspecified; K21.9 Gastro-esophageal reflux disease without esophagitis; G25.81 Restless legs syndrome; I83.93 Asymptomatic varicose veins of bilateral lower extremities; K44.9 Diaphragmatic hernia without obstruction or gangrene; R13.10 Dysphagia, unspecified; G25.0 Essential tremor; F17.210 Nicotine dependence, cigarettes, uncomplicated; M19.90 Unspecified osteoarthritis, unspecified site; S90.822A Blister (nonthermal), left foot, initial encounter; Z79.82 Long term (current) use of aspirin; Z79.1 Long term (current) use of non-steroidal anti-inflammatories (NSAID); Z79.899 Other long term (current) drug therapy; Z79.51 Long term (current) use of inhaled steroids; Z91.81 History of falling; Z86.73 Personal history of transient ischemic attack (TIA), and cerebral infarction without residual deficits; Z88.2 Allergy status to sulfonamides; Z88.8 Allergy status to other drugs, medicaments and biological substances; Z91.041 Radiographic dye allergy status; W10.9XXA Fall (on) (from) unspecified stairs and steps, initial encounter; Y92.009 Unspecified place in unspecified non-institutional (private) residence as the place of occurrence of the external cause
CPT/HCPCS: 36415; 71045; 71275; 72050; 72170; 80048; 80053; 83605; 83735; 83880; 84484; 85025; 85027; 85379; 85610; 85730; 86850; 86900; 86901; 86920; 87636; 93005; 93306; 94640; 94760; 96374; 96376; 99285

== ENCOUNTER → 2023-03-14 | Outpatient (CLI) | payer MEDICARE ==
--- NOTE | 2023-03-14 16:54 | US ---
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 No thickened toe nails. Hx left fe mur fx with papo placement. History of: Smoker: No Hypertension: No Diabetic: No Hyperlipidemia: Yes TIA/CVA: No Previous Vascular Surgery: No CAD: Yes IA: No Vascular Ulcers: Left Claudication: No Gangrene: No Doppler Waveforms: Right: Multiphasic Left: Multiphasic Right Brachial Pressure: 155 Left Brachial Pressure: 157 Ankle-Brachial Indices: Right: 1.2 Left: 1.1 Toe Brachial Indices: Right: 0.2 Left: 0.4 IMPRESSION: Ankle-brachial indices within normal limits.
== END | disposition home or self-care (01) ==
LOC: RADUSWWP 14:15
PROVIDERS: ATTEND Thoracic Surgery (Cardiothoracic Vascular Surgery)
DX: L89.623 Pressure ulcer of left heel, stage 3 (principal)
CPT/HCPCS: 93922

== ENCOUNTER → 2023-03-15 | Outpatient (CLI) | payer MEDICARE ==
--- NOTE | 2023-03-15 14:42 | XR ---
EXAMINATION TYPE: XR wrist complete RT DATE OF EXAM: 03/15/2023 COMPARISON: NONE HISTORY: 82-year-old female [id number], right wrist pain TECHNIQUE: 3 views FINDINGS: There is a transverse, mildly impacted distal radial metaphyseal fracture with mild dorsal angulation . Moderate degenerative change first CMC joint, first MCP joint, and first IP joint. Moderate to bhargav re degenerative change third PIP joint and moderate at the second MCP joint. IMPRESSION: Transverse distal radial metaphyseal fracture with mild dorsal angulation. Correlate as to time since injury. This may be a more subacute fracture. Additional scattered osteoarthritic change throughout the thumb, second MCP joint, and third PIP join ts.
== END | disposition home or self-care (01) ==
LOC: RADXRYALE 13:50
PROVIDERS: ATTEND Physician Assistant Medical
DX: S52.591A Other fractures of lower end of right radius, initial encounter for closed fracture (principal); M19.031 Primary osteoarthritis, right wrist

== ENCOUNTER 2023-04-22 19:36 | Observation (INO) | payer MEDICARE ==
[2023-04-22] MEDS ORDERED: SODIUM CHLORIDE 0.9% 1,000 ML IV STA (19:56)
--- NOTE | 2023-04-22 21:05 | XR ---
EXAMINATION TYPE: XR chest 2V DATE OF EXAM: 04/22/2023 8:52 PM CLINICAL INDICATION:Female, 82 years old with history of Weakness; [facility] COMPARISON: Chest radiographs from TECHNIQUE: XR chest 2V Frontal and lateral views of the chest. FINDINGS: Lungs/Pleura: Prominent interstitial lung markings are seen scattered throughout the lungs. No eviden ce of focal consolidation, pneumothorax or pleural effusion. Pulmonary vascularity: Unremarkable. Heart/mediastinum: Cardiomediastinal silhouette is enlarged and stable. Musculoskeletal: No acute osseous pathology. Other findings: None IMPRESSION: Chronic changes without acute pulmonary process. No significant change from prior.
--- NOTE | 2023-04-22 21:11 | XR ---
EXAMINATION TYPE: XR lumbar spine 2 or 3V DATE OF EXAM: 04/22/2023 8:53 PM CLINICAL INDICATION:Female, 82 years old with history of back pain; [facility] COMPARISON: 01/12/2021 TECHNIQUE: XR lumbar spine 2 or 3V - Frontal, lateral and coned in L5-S1 lateral views of the spine. FINDINGS: Progression of multilevel compression deformities involving L2, L3 and to lesser extent and L4. There is straightening of the spinal alignment and osteophyte formation. Osteophyte formation an d facet joint arthropathy are present throughout the spine. Partially visualized fixation hardware in a femur. IMPRESSION: Multilevel compression deformities. Some appear progressed from prior 01/12/2021. Correlate with back pain consider MRI.
[2023-04-22 21:21] LABS: Basophils % (A) 1 %; Eosinophils # (A) 0.2 k/uL (0-0.7); Eosinophils % (A) 2 %; HCT 35.5 % (34.0-46.0); HGB 11.7 gm/dL (11.4-16.0); Lymphocytes # (A) 2.2 k/uL (1.0-4.8); Lymphocytes % (A) 32 %; MCH 29.1 pg (25.0-35.0); MCV 88.2 fL (80.0-100.0); Mean Platelet Volume 7.3; Monocytes # (A) 0.4 k/uL (0-1.0); Monocytes % (A) 6 %; Neutrophils # (A) 3.8 k/uL (1.3-7.7); Neutrophils % (A) 56 %; Platelet Count 272 k/uL (150-450); RBC 4.03 m/uL (3.80-5.40); RDW 14.6 % (11.5-15.5); WBC 6.8 k/uL (3.8-10.6)
[2023-04-22 21:25] LABS: Prothrombin Time 10.7 sec (10.0-12.5)
[2023-04-22 21:28] LABS: ALT 12 U/L (4-34); AST 20 U/L (14-36); African American GFR (CKD) 75 (>60 ml/min/1.73 sqM); Albumin 3.3 g/dL (3.5-5.0); Alkaline Phosphatase 121 U/L (38-126); Anion Gap 7 mmol/L; Blood Urea Nitrogen 18 mg/dL (7-17); Calcium 8.9 mg/dL (8.4-10.2); Carbon Dioxide 26 mmol/L (22-30); Chloride 103 mmol/L (98-107); Glucose 93 mg/dL (74-99); Magnesium 2.2 mg/dL (1.6-2.3); Non-African American GFR(CKD) 65 (>60 ml/min/1.73 sqM); Potassium 3.9 mmol/L (3.5-5.1); Sodium 136 mmol/L (137-145); Total Bilirubin 0.4 mg/dL (0.2-1.3); Total Protein 5.9 g/dL (6.3-8.2)
--- NOTE | 2023-04-23 00:06 | ED ---
Weakness HPI - General Chief complaint: Weakness Stated complaint: Weakness Time Seen by Provider: 04/22/23 19:50 Source: patient Mode of arrival: EMS Limitations: no limitations - History of Present Illness Initial comments: 82-year-old female presents emergency department with increased weakness. Son is at bedside and helps provide the history. States the patient has been more weak over the past 2 days. She normally relates with her walker and can toilet herself. She has been having difficulty getting up and mobilizing due to pain in her low back. She does have chronic back pain. States that she has previously received injections however no recent treatments. Unsure of her diagnosis. She denies any numbness or paralysis in the lower extremity's. No saddle anesthesia. No bowel or bladder incontinence. She does admit to some chest pain earlier today. No shortness of breath. Chest pain is gone at this time. No history of coronary disease. Denies any nausea or vomiting. No changes in her urination. No other alleviating, precipitating or modifying factors - Related Data Home Medications Medication Instructions Recorded Confirmed Omeprazole 40 mg PO DAILY 08/24/17 04/22/23 FLUoxetine HCL [PROzac] 40 mg PO DAILY 05/21/21 04/22/23 Acetaminophen Tab [Tylenol] 500 mg PO Q6HR PRN 10/30/21 04/22/23 busPIRone HCl [Buspar] 5 mg PO BID 10/30/21 04/22/23 Albuterol Nebulized [Ventolin 2.5 mg INHALATION RT-QID PRN 07/27/22 04/22/23 Nebulized] Cetirizine HCl [Zyrtec] 10 mg PO DAILY 07/27/22 04/22/23 Cholecalciferol [Vitamin D3 (25 25 mcg PO DAILY 07/27/22 04/22/23 Mcg = 1000 Iu)] Fluticasone/Umeclidin/Vilanter 1 puff INHALATION RT-DAILY 11/14/22 04/22/23 [Trelegy Ellipta 100-62.5-25] Memantine [Namenda] 10 mg PO BID 04/22/23 04/22/23 traMADol HCl [Ultram] 50 mg PO BID PRN 04/22/23 04/22/23 Previous Rx's Medication Instructions Recorded Albuterol Inhaler [Ventolin Hfa 2 puff INHALATION RT-Q4H PRN #1 07/01/22 Inhaler] each ALPRAZolam [Xanax] 0.5 mg PO BID PRN #6 tab 01/04/23 Apixaban [Eliquis] 5 mg PO BID tab 01/04/23 Allergies Allergy/AdvReac Type Severity Reaction Status Date / Time budesonide [From Symbicort] Allergy Unknown Verified 04/22/23 20:27 formoterol [From Symbicort] Allergy Unknown Verified 04/22/23 20:27 gabapentin Allergy Unknown Verified 04/22/23 20:27 ibuprofen Allergy Unknown Verified 04/22/23 20:27 Iodinated Contrast Media Allergy Unknown Verified 04/22/23 20:27 [Iodinated Contrast- Oral and IV Dye] iodine Allergy Rash/Hives Verified 04/22/23 20:27 Sulfa (Sulfonamide Allergy Rash/Hives Verified 04/22/23 20:27 Antibiotics) topiramate [From Topamax] Allergy Unknown Verified 04/22/23 20:27 lorazepam [From Ativan] AdvReac Hallucinati Verified 04/22/23 20:27 ons prednisone AdvReac dizziness Verified 04/22/23 20:27 zolpidem tartrate AdvReac Hallucinati Verified 04/22/23 20:27 [From Ambien] ons Review of Systems ROS Statement: Those systems with pertinent positive or pertinent negative responses have been documented in the HPI. ROS Other: All systems not noted in ROS Statement are negative. Past Medical History Past Medical History: Atrial Fibrillation, Asthma, COPD, CVA/TIA, Eye Disorder, GERD/Reflux, Hyperlipidemia, Pneumonia Additional Past Medical History / Comment(s): Chronic atrial fibrillation per PMH but pt has no recollection of this, bronchiectasis, essential tremors, previous TIA, chronic lumbar back pain, past 6 months R shoulder/cervical pain, balance difficulty with falls, occasional low urinary output and uses lasix prn for this, bilateral varicose veins, dysphagia-able to take pills one at a time with water, small hiatal hernia, restless leg syndrome, seasonal ALLERGIES, History of Any Multi-Drug Resistant Organisms: MRSA Date of last positivie culture/infection: 03/22/23 MDRO Source:: Left Heel Past Surgical History: Hysterectomy Additional Past Surgical History / Comment(s): 11/27/15 EGD with bx, bilateral cataracts removed with lens implants, colonoscopy with 1 benign polypectomy. Past Anesthesia/Blood Transfusion Reactions: No Reported Reaction Past Psychological History: Anxiety, Depression Smoking Status: Current some day smoker Past Alcohol Use History: None Reported Past Drug Use History: None Reported - Past Family History Father Family Medical History: Cancer Additional Family Medical History / Comment(s): Pt thinks father might have from stomach cancer. She was 2 yrs old when he . Sister(s) Family Medical History: Cancer Additional Family Medical History / Comment(s): Half sister with brain cancer. Mother Family Medical History: Dementia Additional Family Medical History / Comment(s): Mother had gallstones and a partial thyroidectomy for noncancerous reasons. General Exam Limitations: no limitations General appearance: alert, in no apparent distress Head exam: Present: atraumatic, normocephalic, normal inspection Eye exam: Present: normal appearance, PERRL, EOMI. Absent: scleral icterus, conjunctival injection, periorbital swelling ENT exam: Present: normal exam, mucous membranes moist Neck exam: Present: normal inspection. Absent: tenderness, meningismus, lymphadenopathy Respiratory exam: Present: normal lung sounds bilaterally. Absent: respiratory distress, wheezes, rales, rhonchi, stridor Cardiovascular Exam: Present: regular rate, normal rhythm, normal heart sounds. Absent: systolic murmur, diastolic murmur, rubs, gallop, clicks GI/Abdominal exam: Present: soft, normal bowel sounds. Absent: distended, tenderness, guarding, rebound, rigid Extremities exam: Present: normal inspection, full ROM, normal capillary refill, other (Healing pressure ulcer to the left heel). Absent: tenderness, pedal edema, joint swelling, calf tenderness Back exam: Present: vertebral tenderness (lumbar ) Neurological exam: Present: alert, oriented X3, CN II-XII intact Psychiatric exam: Present: normal affect, normal mood Skin exam: Present: warm, dry, intact, normal color. Absent: rash Course Vital Signs 04/22/23 04/22/23 04/22/23 19:41 20:00 21:07 Temperature 97.8 F Pulse Rate 62 62 61 Respiratory 18 18 18 Rate Blood Pressure 142/69 134/70 121/67 O2 Sat by Pulse 99 100 97 Oximetry 04/22/23 04/22/23 04/23/23 22:09 23:00 00:00 Temperature Pulse Rate 60 64 60 Respiratory 18 16 Rate Blood Pressure 135/64 133/72 133/70 O2 Sat by Pulse 98 98 99 Oximetry 04/23/23 04/23/23 01:00 02:01 Temperature 98.0 F Pulse Rate 62 Respiratory 60 H 18 Rate Blood Pressure 126/69 122/58 O2 Sat by Pulse 99 97 Oximetry Medical Decision Making - Medical Decision Making Was pt. sent in by a medical professional or institution (, PA, CHLORINATION OPERATOR, urgent care, hospital, or detention...) When possible be specific @ -No Did you speak to anyone other than the patient for history (EMS, parent, family, police, friend...)? What history was obtained from this source @ -Spoke with the patient's son Did you review nursing and triage notes (agree or disagree)? Why? @ -I reviewed and agree with nursing and triage notes Were old charts reviewed (outside hosp., previous admission, EMS record, old EKG, old radiological studies, urgent care reports/EKG's, detention records)? Report findings @ -No old charts were reviewed Differential Diagnosis (chest pain, altered mental status, abdominal pain women, abdominal pain men, vaginal bleeding, weakness, fever, dyspnea, syncope, headache, dizziness, GI bleed, back pain, seizure, CVA, palpatations, mental health, musculoskeletal)? @ -Differential Weakness: Hypoglycemia, shock, sepsis, hyponatremia, anemia, infection, NE, ETOH, adverse medicine reaction, overdose, stroke, this is not meant to be an all-inclusive list. EKG interpreted by me (3pts min.). @ -Yes and demonstrates sinus bradycardia. SC interval 132. QRS 78. QTC 451 X-rays interpreted by me (1pt min.). @ -Yes and demonstrates no acute process CT interpreted by me (1pt min.). @ -None done U/S interpreted by me (1pt. min.). @ -None done What testing was considered but not performed or refused? (CT, X-rays, U/S, labs)? Why? @ -None What meds were considered but not given or refused? Why? @ -None Did you discuss the management of the patient with other professionals (professionals i.e. , PA, CHLORINATION OPERATOR, lab, RT, psych nurse, long term care social worker, systems manager, teacher, district fire management officer, protective services case worker)? Give summary @ -Spoke with Viola from [facility] who accepted admission Was smoking cessation discussed for >3mins.? @ -No Was critical care preformed (if so, how long)? @ -No Were there social determinants of health that impacted care today? How? (Homelessness, low income, unemployed, alcoholism, drug addiction, transportation, low edu. Level, literacy, decrease access to med. care, half-way, rehab)? @ -No Was there de-escalation of care discussed even if they declined (Discuss DNR or withdrawal of care, Hospice)? DNR status @ -No What co-morbidities impacted this encounter? (DM, HTN, Smoking, COPD, CAD, Cancer, CVA, ARF, Chemo, Hep., AIDS, mental health diagnosis, sleep apnea, m orbid obesity)? @ -Chronic back pain Was patient admitted / discharged? Hospital course, mention meds given and route, prescriptions, significant lab abnormalities, going to OR and other pertinent info. @ -Admitted. Upon arrival patient placed in room 10. Thorough history and physical exam is performed. IV access is established. Laboratory studies were conducted. Chest and lumbar spine x-ray are performed. Patient does have multiple compression fractures. I did discuss diagnosis, differential treatment options. Son states it has been difficult to care for his mother and therefore she will be admitted for orthopedic consultation. I will also trend her troponins and consult cardiology because of her chest pain. Patient was a greeable to plan she is admitted to the floor in stable condition Undiagnosed new problem with uncertain prognosis? @ -No Drug Therapy requiring intensive monitoring for toxicity (Heparin, Nitro, Insulin, Cardizem)? @ -No Were any procedures done? @ -No Diagnosis/symptom? @ -Acute weakness, acute chest pain, multiple lumbar compression fractures Acute, or Chronic, or Acute on Chronic? @ -acute Uncomplicated (without systemic symptoms) or Complicated (systemic symptoms)? @ -Complicated Side effects of treatment? @ -No Exacerbation, Progression, or Severe Exacerbation? @ -Exacerbation of back pain Poses a threat to life or bodily function? How? (Chest pain, USA, NE, pneumonia, PE, COPD, DKA, ARF, appy, cholecystitis, CVA, Diverticulitis, Homicidal, Suicidal, threat to staff... and all critical care pts) @ -No - Lab Data Result diagrams: 04/22/23 20:46 04/22/23 20:46 Lab Results 04/22/23 04/22/23 04/22/23 Range/Units 20:46 20:46 20:46 WBC 6.8 (3.8-10.6) k/uL RBC 4.03 (3.80-5.40) m/uL Hgb 11.7 (11.4-16.0) gm/dL Hct 35.5 (34.0-46.0) % MCV 88.2 (80.0-100.0) fL MCH 29.1 (25.0-35.0) pg MCHC 33.0 (31.0-37.0) g/dL RDW 14.6 (11.5-15.5) % Plt Count 272 (150-450) k/uL MPV 7.3 Neutrophils % 56 % Lymphocytes % 32 % Monocytes % 6 % Eosinophils % 2 % Basophils % 1 % Neutrophils # 3.8 (1.3-7.7) k/uL Lymphocytes # 2.2 (1.0-4.8) k/uL Monocytes # 0.4 (0-1.0) k/uL Eosinophils # 0.2 (0-0.7) k/uL Basophils # 0.0 (0-0.2) k/uL PT 10.7 (10.0-12.5) sec INR 1.0 (<1.2) APTT 25.0 (22.0-30.0) sec Sodium 136 L (137-145) mmol/L Potassium 3.9 (3.5-5.1) mmol/L Chloride 103 (98-107) mmol/L Carbon Dioxide 26 (22-30) mmol/L Anion Gap 7 mmol/L BUN 18 H (7-17) mg/dL Creatinine 0.84 (0.52-1.04) mg/dL Est GFR (CKD-EPI)AfAm 75 (>60 ml/min/1.73 sqM) Est GFR (CKD-EPI)NonAf 65 (>60 ml/min/1.73 sqM) Glucose 93 (74-99) mg/dL Plasma Lactic Acid Osmel (0.7-2.0) mmol/L Calcium 8.9 (8.4-10.2) mg/dL Magnesium 2.2 (1.6-2.3) mg/dL Total Bilirubin 0.4 (0.2-1.3) mg/dL AST 20 (14-36) U/L ALT 12 (4-34) U/L Alkaline Phosphatase 121 (38-126) U/L Troponin I (0.000-0.034) ng/mL Total Protein 5.9 L (6.3-8.2) g/dL Albumin 3.3 L (3.5-5.0) g/dL TSH 2.260 (0.465-4.680) mIU/L Influenza Type A (PCR) (Not Detectd) Influenza Type B (PCR) (Not Detectd) RSV (PCR) (Not Detectd) SARS-CoV-2 (PCR) (Not Detectd) 04/22/23 04/22/23 04/22/23 Range/Units 20:46 20:46 20:46 WBC (3.8-10.6) k/uL RBC (3.80-5.40) m/uL Hgb (11.4-16.0) gm/dL Hct (34.0-46.0) % MCV (80.0-100.0) fL MCH (25.0-35.0) pg MCHC (31.0-37.0) g/dL RDW (11.5-15.5) % Plt Count (150-450) k/uL MPV Neutrophils % % Lymphocytes % % Monocytes % % Eosinophils % % Basophils % % Neutrophils # (1.3-7.7) k/uL Lymphocytes # (1.0-4.8) k/uL Monocytes # (0-1.0) k/uL Eosinophils # (0-0.7) k/uL Basophils # (0-0.2) k/uL PT (10.0-12.5) sec INR (<1.2) APTT (22.0-30.0) sec Sodium (137-145) mmol/L Potassium (3.5-5.1) mmol/L Chloride (98-107) mmol/L Carbon Dioxide (22-30) mmol/L Anion Gap mmol/L BUN (7-17) mg/dL Creatinine (0.52-1.04) mg/dL Est GFR (CKD-EPI)AfAm (>60 ml/min/1.73 sqM) Est GFR (CKD-EPI)NonAf (>60 ml/min/1.73 sqM) Glucose (74-99) mg/dL Plasma Lactic Acid Osmel 0.9 (0.7-2.0) mmol/L Calcium (8.4-10.2) mg/dL Magnesium (1.6-2.3) mg/dL Total Bilirubin (0.2-1.3) mg/dL AST (14-36) U/L ALT (4-34) U/L Alkaline Phosphatase (38-126) U/L Troponin I <0.012 (0.000-0.034) ng/mL Total Protein (6.3-8.2) g/dL Albumin (3.5-5.0) g/dL TSH (0.465-4.680) mIU/L Influenza Type A (PCR) Not Detected (Not Detectd) Influenza Type B (PCR) Not Detected (Not Detectd) RSV (PCR) Not Detected (Not Detectd) SARS-CoV-2 (PCR) Not Detected (Not Detectd) Disposition Clinical Impression: Chest pain, Compression fracture Disposition: ADMITTED IP TO THIS [facility] Condition: Stable Is patient prescribed a controlled substance at d/c from ED?: No Time of Disposition: 00:08 Decision to Admit Reason: Admit from EC Decision Date: 04/23/23 Decision Time: 00:08
[2023-04-23] MEDS ORDERED: NALOXONE 0.4 MG/ML 1 ML VIAL IV PRN (00:13)
[2023-04-23] MEDS ORDERED: MORPHINE SULFATE 4 MG/ML SYRINGE IV PRN (00:13)
[2023-04-23] MEDS ORDERED: ALBUTEROL NEBULIZED 2.5 MG/3 ML INHALATION PRN (01:32)
[2023-04-23] MEDS ORDERED: traMADol 50 MG TAB PO PRN (01:32)
[2023-04-23] MEDS ORDERED: ACETAMINOPHEN TAB 500 MG TAB PO PRN (01:32)
[2023-04-23] MEDS ORDERED: ALPRAZolam 0.5 MG TAB PO PRN (01:32)
[2023-04-23] MEDS ORDERED: APIXABAN 5 MG TAB PO SCH (01:45)
[2023-04-23] MEDS: busPIRone HCl 5 MG TAB PO SCH ×3 (02:57→21:23)
[2023-04-23 02:58] LABS: Appearance,Urine Clear (Clear); Bilirubin,Urine Negative (Negative); Blood,Urine Negative (Negative); Color,Urine Colorless; Glucose,Urine (UA) Negative (Negative); Ketones,Urine Negative (Negative); Leukocyte Esterase,Urine Negative (Negative); Nitrite,Urine Negative (Negative); PH, Urine 6.5 (5.0-8.0); Protein,Urine Negative (Negative); Specific Gravity,Urine 1.011 (1.001-1.035); Urobilinogen,Urine <2.0 mg/dL (<2.0)
[2023-04-23] MEDS: MEMANTINE 10 MG TAB PO SCH ×3 (02:58→21:22)
[2023-04-23] MEDS: PANTOPRAZOLE 40 MG TABLET PO SCH (05:57)
[2023-04-23] MEDS: SYMBICORT 80-4.5 MCG INHALER INHALATION SCH ×2 (08:05→20:14)
[2023-04-23] MEDS: IPRATROPIUM 0.5 MG/2.5 ML NEBU INHALATION SCH ×4 (08:05→20:14)
[2023-04-23 08:42] VITALS: RESP 18
[2023-04-23] MEDS: FLUoxetine HCL 20 MG CAP PO SCH (08:43)
[2023-04-23] MEDS: LORATADINE 10 MG TAB PO SCH (08:43)
[2023-04-23] MEDS: APIXABAN 2.5 MG TABLET PO SCH ×2 (08:43→21:22)
--- NOTE | 2023-04-23 12:46 | P.HPIM ---
History of Present Illness H&P Date: 04/23/23 History of present illness; patient is 82-year-old lady with past medical history significant for dementia, COPD on 2 L, essential tremors, history of CVA, chronic back pain, hyperlipidemia who was brought to the ER for increasing weakness. Patient son provides most of the history according to him patient has been getting gradually weak over the last few days. Patient complaining of lower back pain which is worsened. Patient unable to get up and ambulate. Be cause of weakness, patient has been having a hard time in using her walker to ambulate. Denies any fever or chills. Denies any nausea, vomiting abdominal pain. Patient did have an episode of chest pain earlier was central in location, nonradiating, no aggravating or alleviating factors associated with chest pain. Denies any shortness of breath that time. Because of this weakness, patient came to the ER Initial lab work done in the ER showed WBC 6.8, hemoglobin 11.7, platelet count 272, sodium 136, potassium 3.9, BUN 18, creatinine 0.84 troponin 0.012 UA negative for infection Influenza A not detected Influenza B not detected RSV not detected COVID-19 not detected EKG done in the ER showed heart rate of 56, no ST segment elevation or depression seen, no T-wave inversions seen. Chest x-ray done in the ER chronic changes without any acute pulmonary process X-ray lumbar spine done showed multilevel compression deformities. Patient admitted to internal medicine service REVIEW OF SYSTEMS: CONSTITUTIONAL: As mentioned in HPI HEENT: No recent visual problems or hearing problems. Denied any sore throat. CARDIOVASCULAR: As mentioned in HPI PULMONARY: No shortness of breath, no cough, no hemoptysis. GASTROINTESTINAL: No diarrhea, no nausea, no vomiting, no abdominal pain. NEUROLOGICAL: No headaches, no weakness, no numbness. HEMATOLOGICAL: Denies any bleeding or petechiae. GENITOURINARY: Denies any burning micturition, frequency, or urgency. MUSCULOSKELETAL/RHEUMATOLOGICAL: Complaining of back pain ENDOCRINE: Denies any polyuria or polydipsia. The rest of the 14-point review of systems is negative. PHYSICAL EXAMINATION: GENERAL: The patient is alert and oriented x3, not in any acute distress. Frail looking HEENT: Pupils are round and equally reacting to light. EOMI. No scleral icterus. No conjunctival pallor. Normocephalic, atraumatic. No pharyngeal erythema. No thyromegaly. CARDIOVASCULAR: S1 and S2 present. No murmurs, rubs, or gallops. PULMONARY: Chest is clear to auscultation, no wheezing or crackles. ABDOMEN: Soft, nontender, nondistended, normoactive bowel sounds. No palpable organomegaly. MUSCULOSKELETAL: No joint swelling or deformity. EXTREMITIES: No cyanosis, clubbing, or pedal edema. NEUROLOGICAL: Gross neurological examination did not reveal any focal deficits. SKIN: No rashes. Assessment and plan Acute on chronic back pain Generalized weakness Chest pain rule out acute coronary syndrome Paroxysmal A. fib COPD without exacerbation History of CVA hyperlipidemia Monitor vital signs Monitor CBC Monitor CMP Continue telemetry monitoring Trend troponins. Continue pain management Continue IV fluids Continue antiemetics Resume Eliquis Consult orthopedics Consult cardiology Labs and medication were reviewed.. Continue same treatment. Continue with symptomatic treatment. Resume home medication. Monitor labs and vitals. DVT and GI prophylaxis. Further recommendations as per clinical course of the patient Dictation was produced using [employer] dictation software. please excuse any grammatical, word or spelling errors. Past Medical History Past Medical History: Atrial Fibrillation, Asthma, COPD, CVA/TIA, Eye Disorder, GERD/Reflux, Hyperlipidemia, Pneumonia Additional Past Medical History / Comment(s): Chronic atrial fibrillation per PMH but pt has no recollection of this, bronchiectasis, essential tremors, previous TIA, chronic lumbar back pain, past 6 months R shoulder/cervical pain, balance difficulty with falls, occasional low urinary output and uses lasix prn for this, bilateral varicose veins, dysphagia-able to take pills one at a time with water, small hiatal hernia, restless leg syndrome, seasonal ALLERGIES, History of Any Multi-Drug Resistant Organisms: MRSA Date of last positivie culture/infection: 03/22/23 MDRO Source:: Left Heel Past Surgical History: Hysterectomy Additional Past Surgical History / Comment(s): 11/27/15 EGD with bx, bilateral cataracts removed with lens implants, colonoscopy with 1 benign polypectomy. Past Anesthesia/Blood Transfusion Reactions: No Reported Reaction Past Psychological History: Anxiety, Depression Additional Psychological History / Comment(s): Pt's sonSonu lives with her. She uses a cane or walker to ambulate. Smoking Status: Current some day smoker Past Alcohol Use History: None Reported Additional Past Alcohol Use History / Comment(s): Pt states she started smoking in her early 20's. She quit for several yrs, during her pregnancies and when her children were young. She smokes a cigeratte once in awhile when stressed Past Drug Use History: None Reported - Past Family History Father Family Medical History: Cancer Additional Family Medical History / Comment(s): Pt thinks father might have from stomach cancer. She was 2 yrs old when he . Sister(s) Family Medical History: Cancer Additional Family Medical History / Comment(s): Half sister with brain cancer. Mother Family Medical History: Dementia Additional Family Medical History / Comment(s): Mother had gallstones and a partial thyroidectomy for noncancerous reasons. Medications and Allergies Home Medications Medication Instructions Recorded Confirmed Type Omeprazole 40 mg PO DAILY 08/24/17 04/22/23 History FLUoxetine HCL [PROzac] 40 mg PO DAILY 05/21/21 04/22/23 History Acetaminophen Tab [Tylenol] 500 mg PO Q6HR PRN 10/30/21 04/22/23 History busPIRone HCl [Buspar] 5 mg PO BID 10/30/21 04/22/23 History Albuterol Inhaler [Ventolin Hfa 2 puff INHALATION RT-Q4H PRN #1 07/01/22 04/22/23 Rx Inhaler] each Albuterol Nebulized [Ventolin 2.5 mg INHALATION RT-QID PRN 07/27/22 04/22/23 History Nebulized] Cetirizine HCl [Zyrtec] 10 mg PO DAILY 07/27/22 04/22/23 History Cholecalciferol [Vitamin D3 (25 25 mcg PO DAILY 07/27/22 04/22/23 History Mcg = 1000 Iu)] Fluticasone/Umeclidin/Vilanter 1 puff INHALATION RT-DAILY 11/14/22 04/22/23 History [Trelegy Ellipta 100-62.5-25] ALPRAZolam [Xanax] 0.5 mg PO BID PRN #6 tab 01/04/23 04/22/23 Rx Apixaban [Eliquis] 5 mg PO BID tab 01/04/23 04/22/23 Rx Memantine [Namenda] 10 mg PO BID 04/22/23 04/22/23 History traMADol HCl [Ultram] 50 mg PO BID PRN 04/22/23 04/22/23 History Allergies Allergy/AdvReac Type Severity Reaction Status Date / Time budesonide [From Symbicort] Allergy Unknown Verified 04/22/23 20:27 formoterol [From Symbicort] Allergy Unknown Verified 04/22/23 20:27 gabapentin Allergy Unknown Verified 04/22/23 20:27 ibuprofen Allergy Unknown Verified 04/22/23 20:27 Iodinated Contrast Media Allergy Unknown Verified 04/22/23 20:27 [Iodinated Contrast- Oral and IV Dye] iodine Allergy Rash/Hives Verified 04/22/23 20:27 Sulfa (Sulfonamide Allergy Rash/Hives Verified 04/22/23 20:27 Antibiotics) topiramate [From Topamax] Allergy Unknown Verified 04/22/23 20:27 lorazepam [From Ativan] AdvReac Hallucinati Verified 04/22/23 20:27 ons prednisone AdvReac dizziness Verified 04/22/23 20:27 zolpidem tartrate AdvReac Hallucinati Verified 04/22/23 20:27 [From Ambien] ons Physical Exam Vitals: Vital Signs Temp Pulse Pulse Resp BP BP Pulse Ox 04/23/23 08:18 70 04/23/23 08:07 68 04/23/23 07:20 97.7 F 62 18 138/73 99 04/23/23 03:01 97.5 F L 54 L 16 148/74 94 L 04/23/23 02:01 98.0 F 62 18 122/58 97 04/23/23 01:00 60 H 126/69 99 04/23/23 00:00 60 133/70 99 04/22/23 23:00 64 16 133/72 98 04/22/23 22:09 60 18 135/64 98 04/22/23 21:07 61 18 121/67 97 04/22/23 20:00 62 18 134/70 100 04/22/23 19:41 97.8 F 62 18 142/69 99 Intake and Output 04/22/23 04/23/23 04/23/23 22:59 06:59 14:59 Other: Voiding Method Bedpan # Voids 2 Weight 45.359 kg 45.359 kg Results CBC & Chem 7: 04/22/23 20:46 04/22/23 20:46 Labs: Abnormal Lab Results - Last 24 Hours (Table) 04/22/23 Range/Units 20:46 Sodium 136 L (137-145) mmol/L BUN 18 H (7-17) mg/dL Total Protein 5.9 L (6.3-8.2) g/dL Albumin 3.3 L (3.5-5.0) g/dL
--- NOTE | 2023-04-23 14:59 | P.CRDCN ---
History of Present Illness Consult date: 04/23/23 History of present illness: HISTORY OF PRESENTING ILLNESS 82-year-old female with past medical history of dementia, COPD on 2 L oxygen chronically at home, essential tremors, hypertension, history of CVA, chronic back pain, dyslipidemia. Next This time she presented to the ER because of generalized weakness. Patient has been getting worse over last few days along with worsening back pain. She is unable to ambulate. She denies any active chest pain chest pressure shortness of breath. She denies any palpitations lightheadedness or dizziness OR loss of consciousness. Her labs were essentially within normal range with negative troponins. Her vital panel was negative, urine analysis was negative. Her ECG shows heart rate 56, no significant ST-T wave changes, normal sinus bradycardia Last echo from December showed a normal LV size and systolic function. REVIEW OF SYSTEMS 14 point review of system is negative except what is mentioned above in HPI. PHYSICAL EXAMINATION Vital signs reviewed. Head: Normocephalic. Eyes: Sclerae nonicteric. Neck: Brisk carotid upstroke, no jugular venous distention. Lungs: Clear to auscultation. Heart: Regular rate and rhythm, S1-S2, no S3, no murmur or rub. Abdomen: Soft nontender, positive bowel sounds no organomegaly. Extremities: No edema, intact distal pulses. Neuro: Alert, oritented, no focal deficits ASSESSMENT History of paroxysmal atrial fibrillation. Currently in sinus bradycardia History of CVA Recurrent falls and generalized weakness at home COPD, chronic hypoxia, Plan Resume Eliquis 2.5 mg twice daily. Agree with reducing dose to 2.5 mg. No need for any beta becky because of low resting heart rate No acute signs of congestive heart failure, arrhythmias or any ischemia. Outpatient follow-up. Patient is clear from cardiovascular standpoint. Cardiology team will sign off. Please reconsult us in case of any question Past Medical History Past Medical History: Atrial Fibrillation, Asthma, COPD, CVA/TIA, Eye Disorder, GERD/Reflux, Hyperlipidemia, Pneumonia Additional Past Medical History / Comment(s): Chronic atrial fibrillation per PMH but pt has no recollection of this, bronchiectasis, essential tremors, previ ous TIA, chronic lumbar back pain, past 6 months R shoulder/cervical pain, balance difficulty with falls, occasional low urinary output and uses lasix prn for this, bilateral varicose veins, dysphagia-able to take pills one at a time with water, small hiatal hernia, restless leg syndrome, seasonal ALLERGIES, History of Any Multi-Drug Resistant Organisms: MRSA Date of last positivie culture/infection: 03/22/23 MDRO Source:: Left Heel Past Surgical History: Hysterectomy Additional Past Surgical History / Comment(s): 11/27/15 EGD with bx, bilateral cataracts removed with lens implants, colonoscopy with 1 benign polypectomy. Past Anesthesia/Blood Transfusion Reactions: No Reported Reaction Past Psychological History: Anxiety, Depression Additional Psychological History / Comment(s): Pt's son, Sonu lives with her. She uses a cane or walker to ambulate. Smoking Status: Current some day smoker Past Alcohol Use History: None Reported Additional Past Alcohol Use History / Comment(s): Pt states she started smoking in her early 20's. She quit for several yrs, during her pregnancies and when her children were young. She smokes a cigeratte once in awhile when stressed Past Drug Use History: None Reported - Past Family History Father Family Medical History: Cancer Additional Family Medical History / Comment(s): Pt thinks father might have from stomach cancer. She was 2 yrs old when he . Sister(s) Family Medical History: Cancer Additional Family Medical History / Comment(s): Half sister with brain cancer. Mother Family Medical History: Dementia Additional Family Medical History / Comment(s): Mother had gallstones and a partial thyroidectomy for noncancerous reasons. Medications and Allergies Home Medications Medication Instructions Recorded Confirmed Type Omeprazole 40 mg PO DAILY 08/24/17 04/22/23 History FLUoxetine HCL [PROzac] 40 mg PO DAILY 05/21/21 04/22/23 History Acetaminophen Tab [Tylenol] 500 mg PO Q6HR PRN 10/30/21 04/22/23 History busPIRone HCl [Buspar] 5 mg PO BID 10/30/21 04/22/23 History Albuterol Inhaler [Ventolin Hfa 2 puff INHALATION RT-Q4H PRN #1 07/01/22 04/22/23 Rx Inhaler] each Albuterol Nebulized [Ventolin 2.5 mg INHALATION RT-QID PRN 07/27/22 04/22/23 History Nebulized] Cetirizine HCl [Zyrtec] 10 mg PO DAILY 07/27/22 04/22/23 History Cholecalciferol [Vitamin D3 (25 25 mcg PO DAILY 07/27/22 04/22/23 History Mcg = 1000 Iu)] Fluticasone/Umeclidin/Vilanter 1 puff INHALATION RT-DAILY 11/14/22 04/22/23 History [Trelegy Ellipta 100-62.5-25] ALPRAZolam [Xanax] 0.5 mg PO BID PRN #6 tab 01/04/23 04/22/23 Rx Apixaban [Eliquis] 5 mg PO BID tab 01/04/23 04/22/23 Rx Memantine [Namenda] 10 mg PO BID 04/22/23 04/22/23 History traMADol HCl [Ultram] 50 mg PO BID PRN 04/22/23 04/22/23 History Allergies Allergy/AdvReac Type Severity Reaction Status Date / Time budesonide [From Symbicort] Allergy Unknown Verified 04/22/23 20:27 formoterol [From Symbicort] Allergy Unknown Verified 04/22/23 20:27 gabapentin Allergy Unknown Verified 04/22/23 20:27 ibuprofen Allergy Unknown Verified 04/22/23 20:27 Iodinated Contrast Media Allergy Unknown Verified 04/22/23 20:27 [Iodinated Contrast- Oral and IV Dye] iodine Allergy Rash/Hives Verified 04/22/23 20:27 Sulfa (Sulfonamide Allergy Rash/Hives Verified 04/22/23 20:27 Antibiotics) topiramate [From Topamax] Allergy Unknown Verified 04/22/23 20:27 lorazepam [From Ativan] AdvReac Hallucinati Verified 04/22/23 20:27 ons prednisone AdvReac dizziness Verified 04/22/23 20:27 zolpidem tartrate AdvReac Hallucinati Verified 04/22/23 20:27 [From Ambien] ons Physical Exam Vitals: Vital Signs Temp Pulse Pulse Resp BP BP Pulse Ox 04/23/23 14:10 98.1 F 76 18 113/56 95 04/23/23 12:00 71 04/23/23 11:52 68 04/23/23 08:43 18 04/23/23 08:18 70 04/23/23 08:07 68 04/23/23 07:20 97.7 F 62 18 138/73 99 04/23/23 03:01 97.5 F L 54 L 16 148/74 94 L 04/23/23 02:01 98.0 F 62 18 122/58 97 04/23/23 01:00 60 H 126/69 99 04/23/23 00:00 60 133/70 99 04/22/23 23:00 64 16 133/72 98 04/22/23 22:09 60 18 135/64 98 04/22/23 21:07 61 18 121/67 97 04/22/23 20:00 62 18 134/70 100 04/22/23 19:41 97.8 F 62 18 142/69 99 Intake and Output 04/22/23 04/23/23 04/23/23 22:59 06:59 14:59 Other: Voiding Method Bedpan Bedpan # Voids 2 2 Weight 45.359 kg 45.359 kg Results 04/22/23 20:46 04/22/23 20:46 Cardiac Enzymes 04/22/23 04/22/23 04/23/23 Range/Units 20:46 20:46 02:49 AST 20 (14-36) U/L Troponin I <0.012 <0.012 (0.000-0.034) ng/mL 04/23/23 Range/Units 06:27 AST (14-36) U/L Troponin I <0.012 (0.000-0.034) ng/mL Coagulation 04/22/23 Range/Units 20:46 PT 10.7 (10.0-12.5) sec APTT 25.0 (22.0-30.0) sec CBC 04/22/23 Range/Units 20:46 WBC 6.8 (3.8-10.6) k/uL RBC 4.03 (3.80-5.40) m/uL Hgb 11.7 (11.4-16.0) gm/dL Hct 35.5 (34.0-46.0) % Plt Count 272 (150-450) k/uL Comprehensive Metabolic Panel 04/22/23 Range/Units 20:46 Sodium 136 L (137-145) mmol/L Potassium 3.9 (3.5-5.1) mmol/L Chloride 103 (98-107) mmol/L Carbon Dioxide 26 (22-30) mmol/L BUN 18 H (7-17) mg/dL Creatinine 0.84 (0.52-1.04) mg/dL Glucose 93 (74-99) mg/dL Calcium 8.9 (8.4-10.2) mg/dL AST 20 (14-36) U/L ALT 12 (4-34) U/L Alkaline Phosphatase 121 (38-126) U/L Total Protein 5.9 L (6.3-8.2) g/dL Albumin 3.3 L (3.5-5.0) g/dL Current Medications Generic Name Dose Route Start Last Admin Trade Name Freq PRN Reason Stop Dose Admin Acetaminophen 500 mg 04/23/23 01:32 Acetaminophen Tab 500 Mg Tab PO Q6HR PRN Pain Albuterol Sulfate 2.5 mg 04/23/23 01:32 Albuterol Nebulized 2.5 Mg/3 Ml INHALATION RT-QID PRN Shortness Of Breath Alprazolam 0.5 mg 04/23/23 01:32 Alprazolam 0.5 Mg Tab PO BID PRN Anxiety Apixaban 2.5 mg 04/23/23 09:00 04/23/23 08:43 Apixaban 2.5 Mg Tablet PO 2.5 mg BID BA Administration Protocol Budesonide/Formoterol Fumarate 2 puff 04/23/23 08:00 04/23/23 08:05 Symbicort 80-4.5 Mcg Inhaler INHALATION 2 puff RT-BID BA Administration Buspirone HCl 5 mg 04/23/23 01:45 04/23/23 13:09 Buspirone Hcl 5 Mg Tab PO 5 mg BID BA Administration Fluoxetine HCl 40 mg 04/23/23 09:00 04/23/23 08:43 Fluoxetine Hcl 20 Mg Cap PO 40 mg DAILY BA Administration Ipratropium [place] 0.5 mg 04/23/23 08:00 04/23/23 11:51 Ipratropium 0.5 Mg/2.5 Ml Nebu INHALATION 0.5 mg RT-QID BA Administration Loratadine 10 mg 04/23/23 09:00 04/23/23 08:43 Loratadine 10 Mg Tab PO 10 mg DAILY BA Administration Memantine 10 mg 04/23/23 01:45 04/23/23 08:43 Memantine 10 Mg Tab PO 10 mg BID BA Administration Morphine Sulfate 4 mg 04/23/23 00:13 Morphine Sulfate 4 Mg/Ml Syringe IV Q4HR PRN Severe Pain (Scale 7 to 10) Naloxone HCl 0.2 mg 04/23/23 00:13 Naloxone 0.4 Mg/Ml 1 Ml Vial IV Q2M PRN Opioid Reversal Pantoprazole Sodium 40 mg 04/23/23 07:30 04/23/23 05:57 Pantoprazole 40 Mg Tablet PO 40 mg [id number] BA Administration Tramadol HCl 50 mg 04/23/23 01:32 Tramadol 50 Mg Tab PO BID PRN Pain Intake and Output 04/22/23 04/23/23 04/23/23 22:59 06:59 14:59 Other: Voiding Method Bedpan Bedpan # Voids 2 2 Weight 45.359 kg 45.359 kg 04/22/23 20:46 04/22/23 20:46
[2023-04-23 16:12] VITALS: BMI 18.3
--- NOTE | 2023-04-23 16:29 | P.PN ---
Progress Note - Text Progress Note Date: 04/23/23 Patient was seen this afternoon. She was very resistant with speaking to me. She states she knows she has compression fractures and does not need our care. She is following with her PCP. Patient refusing consult at this time.
[2023-04-24] MEDS: PANTOPRAZOLE 40 MG TABLET PO SCH (05:56)
[2023-04-24] MEDS: busPIRone HCl 5 MG TAB PO SCH (08:23)
[2023-04-24] MEDS: MEMANTINE 10 MG TAB PO SCH (08:23)
[2023-04-24] MEDS: APIXABAN 2.5 MG TABLET PO SCH (08:23)
[2023-04-24] MEDS: FLUoxetine HCL 20 MG CAP PO SCH (08:23)
[2023-04-24] MEDS: LORATADINE 10 MG TAB PO SCH (08:24)
[2023-04-24] MEDS: IPRATROPIUM 0.5 MG/2.5 ML NEBU INHALATION SCH ×2 (08:30→12:26)
[2023-04-24] MEDS: SYMBICORT 80-4.5 MCG INHALER INHALATION SCH (08:30)
[2023-04-24 10:33] LABS: Basophils # (A) 0.02 X 10*3/uL (0.00-0.10); Basophils % (A) 0.4 %; Eosinophils # (A) 0.11 X 10*3/uL (0.04-0.35); HCT 34.6 % (37.2-46.3); Lymphocytes # (A) 1.53 X 10*3/uL (0.90-5.00); Lymphocytes % (A) 28.3 %; MCH 27.9 pg (27.0-32.0); MCHC 31.8 g/dL (32.0-37.0); MCV 87.8 FL (80.0-97.0); Mean Platelet Volume 9.4 FL (9.5-12.2); Monocytes % (A) 12.9 %; NRBC Per 100 WBC 0 X 10*3/uL (0.00-0.01); Neutrophils # (A) 3.03 X 10*3/uL (1.80-7.70); Platelet Count 272 X 10*3/uL (140-440); RBC 3.94 X 10*6/uL (4.10-5.20); RDW 14.6 % (11.5-14.5); WBC 5.41 X 10*3/uL (4.50-10.00)
[2023-04-24 10:47] LABS: BUN/Creat Ratio 12.12 Ratio (12.00-20.00); Blood Urea Nitrogen 9.7 mg/dL (9.0-27.0); Calcium 9.2 mg/dL (8.7-10.3); Chloride 106 mmol/L (96-109); Glucose 95 mg/dL (70-110); Potassium 4.5 mmol/L (3.5-5.5); Sodium 144 mmol/L (135-145)
--- NOTE | 2023-04-24 11:56 | P.DS ---
Providers Date of admission: 04/23/23 00:14 Expected date of discharge: 04/24/23 Attending physician: Rhys Hernandez Consults: 04/23/23 00:13 Consult Physician Urgent Consulting Provider: Isauro Isbell Consult Reason/Comments: compression fractures, back pain Do you want consulting provider notified?: Yes Primary care physician: Stated None Hospital Course: Discharge diagnoses; Acute on chronic back pain Generalized weakness Chest pain ruled out acute coronary syndrome Paroxysmal A. fib COPD without exacerbation History of CVA hyperlipidemia Hospital course; patient is 82-year-old lady with past medical history significant for dementia, COPD on 2 L, essential tremors, history of CVA, chronic back pain, hyperlipidemia who was brought to the ER for increasing weakness. Patient son provides most of the history according to him patient has been getting gradually weak over the last few days. Patient complaining of lower back pain which is worsened. Patient unable to get up and ambulate. Because of weakness, patient has been having a hard time in using her walker to ambulate. Denies any fever or chills. Denies any nausea, vomiting abdominal pain. Patient did have an episode of chest pain earlier was central in location, nonradiating, no aggravating or alleviating factors associated with chest pain. Denies any shortness of breath that time. Because of this weakness, patient came to the ER Initial lab work done in the ER showed WBC 6.8, hemoglobin 11.7, platelet count 272, sodium 136, potassium 3.9, BUN 18, creatinine 0.84 troponin 0.012 UA negative for infection Influenza A not detected Influenza B not detected RSV not detected COVID-19 not detected EKG done in the ER showed heart rate of 56, no ST segment elevation or depression seen, no T-wave inversions seen. Chest x-ray done in the ER chronic changes without any acute pulmonary process X-ray lumbar spine done showed multilevel compression deformities. Patient admitted to internal medicine service 04/24. Patient was seen by cardiology, they recommended no ischemic workup, recommend current medical treatment. Patient was supposed to be seen by spine surgery but patient refused. Patient also refused to be seen by PT or OT. Patient stated that she doesn't want to go to rehab and wants to be discharged home. PHYSICAL EXAMINATION: GENERAL: The patient is alert and oriented x3, not in any acute distress. Well developed, well nourished. HEENT: Pupils are round and equally reacting to light. EOMI. No scleral icterus. No conjunctival pallor. Normocephalic, atraumatic. No pharyngeal erythema. No thyromegaly. CARDIOVASCULAR: S1 and S2 present. No murmurs, rubs, or gallops. PULMONARY: Chest is clear to auscultation, no wheezing or crackles. ABDOMEN: Soft, nontender, nondistended, normoactive bowel sounds. No palpable organomegaly. MUSCULOSKELETAL: No joint swelling or deformity. EXTREMITIES: No cyanosis, clubbing, or pedal edema. NEUROLOGICAL: Gross neurological examination did not reveal any focal deficits. SKIN: No rashes. Dictation was produced using [employer] dictation software. please excuse any grammatical, word or spelling errors. Patient Condition at Discharge: Stable Plan - Discharge Summary New Discharge Prescriptions: Continue Omeprazole 40 mg PO DAILY Acetaminophen Tab [Tylenol] 500 mg PO Q6HR PRN PRN Reason: Pain busPIRone HCl [Buspar] 5 mg PO BID Albuterol Inhaler [Ventolin Hfa Inhaler] 2 puff INHALATION RT-Q4H PRN #1 each PRN Reason: Shortness Of Breath Cetirizine HCl [Zyrtec] 10 mg PO DAILY ALPRAZolam [Xanax] 0.5 mg PO BID PRN #6 tab PRN Reason: Anxiety FLUoxetine HCL [PROzac] 40 mg PO DAILY Cholecalciferol [Vitamin D3 (25 Mcg = 1000 Iu)] 25 mcg PO DAILY Albuterol Nebulized [Ventolin Nebulized] 2.5 mg INHALATION RT-QID PRN PRN Reason: Shortness Of Breath Fluticasone/Umeclidin/Vilanter [Trelegy Ellipta 100-62.5-25] 1 puff INHALATION RT-DAILY Apixaban [Eliquis] 5 mg PO BID tab Memantine [Namenda] 10 mg PO BID traMADol HCl [Ultram] 50 mg PO BID PRN PRN Reason: Pain Discharge Medication List Omeprazole 40 mg PO DAILY 08/24/17 [History] FLUoxetine HCL [PROzac] 40 mg PO DAILY 05/21/21 [History] Acetaminophen Tab [Tylenol] 500 mg PO Q6HR PRN 10/30/21 [History] busPIRone HCl [Buspar] 5 mg PO BID 10/30/21 [History] Albuterol Inhaler [Ventolin Hfa Inhaler] 2 puff INHALATION RT-Q4H PRN #1 each 07/01/22 [Rx] Albuterol Nebulized [Ventolin Nebulized] 2.5 mg INHALATION RT-QID PRN 07/27/22 [History] Cetirizine HCl [Zyrtec] 10 mg PO DAILY 07/27/22 [History] Cholecalciferol [Vitamin D3 (25 Mcg = 1000 Iu)] 25 mcg PO DAILY 07/27/22 [History] Fluticasone/Umeclidin/Vilanter [Trelegy Ellipta 100-62.5-25] 1 puff INHALATION RT-DAILY 11/14/22 [History] ALPRAZolam [Xanax] 0.5 mg PO BID PRN #6 tab 01/04/23 [Rx] Apixaban [Eliquis] 5 mg PO BID tab 01/04/23 [Rx] Memantine [Namenda] 10 mg PO BID 04/22/23 [History] traMADol HCl [Ultram] 50 mg PO BID PRN 04/22/23 [History] Follow up Appointment(s)/Referral(s): None,Stated [Primary Care Provider] - 1-2 days Discharge Disposition: HOME SELF-CARE
[2023-04-24 14:38] VITALS: BP 112/69; PULSE 76; TEMP 98.2
== END 2023-04-24 15:04 | disposition home or self-care (01) ==
LOC: EC 19:36 → 6NMEDSUR 04-23 00:14
PROVIDERS: ADMIT Hospitalist; ATTEND Hospitalist
DX: R07.9 Chest pain, unspecified (principal); G89.29 Other chronic pain; M54.50 Low back pain, unspecified; R53.1 Weakness; J44.9 Chronic obstructive pulmonary disease, unspecified; K21.9 Gastro-esophageal reflux disease without esophagitis; E78.5 Hyperlipidemia, unspecified; I48.0 Paroxysmal atrial fibrillation; F32.A Depression, unspecified; F41.9 Anxiety disorder, unspecified; F03.90 Unspecified dementia, unspecified severity, without behavioral disturbance, psychotic disturbance, mood disturbance, and anxiety; M48.56XA Collapsed vertebra, not elsewhere classified, lumbar region, initial encounter for fracture; F17.200 Nicotine dependence, unspecified, uncomplicated; Z20.822 Contact with and (suspected) exposure to COVID-19; Z86.73 Personal history of transient ischemic attack (TIA), and cerebral infarction without residual deficits; Z99.81 Dependence on supplemental oxygen; Z79.01 Long term (current) use of anticoagulants; Z79.51 Long term (current) use of inhaled steroids; Z79.899 Other long term (current) drug therapy; Z88.2 Allergy status to sulfonamides
CPT/HCPCS: 96361 ×3; 96360; 99285; 36415; 94640 ×3; 80053; 80048; 84443; 83605; 83735; 84484 ×2; 85025 ×2; 85610; 85730; 81003; 87636; 72100; 71046; G0378 ×2

== ENCOUNTER 2023-06-01 22:41 | Emergency (ER) | payer MEDICARE ==
[2023-06-01 23:26] VITALS: TEMP 97.8
[2023-06-01 23:52] VITALS: RESP 16
[2023-06-02 00:11] LABS: Appearance,Urine Clear (Clear); Bilirubin,Urine Negative (Negative); Blood,Urine Trace (Negative); Color,Urine Colorless; Glucose,Urine (UA) Negative (Negative); Ketones,Urine Negative (Negative); Leukocyte Esterase,Urine Negative (Negative); Nitrite,Urine Negative (Negative); PH, Urine 6.5 (5.0-8.0); Protein,Urine Negative (Negative); RBC,Urine 1 /hpf (0-5); Specific Gravity,Urine 1.002 (1.001-1.035); Urobilinogen,Urine <2.0 mg/dL (<2.0)
[2023-06-02] MEDS: SODIUM CHLORIDE 0.9% 500 ML 500 ML IV STA (01:02)
[2023-06-02] MEDS: methylPREDNISolone SOD SUCCI 125 MG/2 ML VIAL IV STA (01:03)
[2023-06-02] MEDS: FAMOTIDINE 20 MG/2 ML VIAL IV STA (01:04)
[2023-06-02 01:05] LABS: Basophils % (A) 0 %; Eosinophils # (A) 0.2 k/uL (0-0.7); Eosinophils % (A) 3 %; HCT 34.3 % (34.0-46.0); HGB 11.4 gm/dL (11.4-16.0); Lymphocytes # (A) 2.1 k/uL (1.0-4.8); Lymphocytes % (A) 33 %; MCH 28.9 pg (25.0-35.0); MCHC 33.2 g/dL (31.0-37.0); MCV 87.2 fL (80.0-100.0); Monocytes # (A) 0.4 k/uL (0-1.0); Monocytes % (A) 7 %; Neutrophils # (A) 3.3 k/uL (1.3-7.7); Neutrophils % (A) 54 %; Platelet Count 265 k/uL (150-450); RBC 3.93 m/uL (3.80-5.40); RDW 15.8 % (11.5-15.5); WBC 6.2 k/uL (3.8-10.6)
[2023-06-02] MEDS: diphenhydrAMINE 50 MG/ML 1 ML VIAL IVP STA (01:06)
[2023-06-02 01:11] LABS: ALT 10 U/L (4-34); AST 18 U/L (14-36); African American GFR (CKD) >90 (>60 ml/min/1.73 sqM); Albumin 3.4 g/dL (3.5-5.0); Alkaline Phosphatase 129 U/L (38-126); Anion Gap 4 mmol/L; Blood Urea Nitrogen 13 mg/dL (7-17); Carbon Dioxide 26 mmol/L (22-30); Chloride 107 mmol/L (98-107); Glucose 92 mg/dL (74-99); Lipase 41 U/L (23-300); Non-African American GFR(CKD) 83 (>60 ml/min/1.73 sqM); Potassium 3.6 mmol/L (3.5-5.1); Sodium 137 mmol/L (137-145); Total Bilirubin 0.6 mg/dL (0.2-1.3); Total Protein 5.9 g/dL (6.3-8.2)
--- NOTE | 2023-06-02 01:40 | ED ---
Abdominal Pain HPI - General Chief Complaint: Abdominal Pain Stated Complaint: abd pain Time Seen by Provider: 06/01/23 23:34 Source: EMS Mode of arrival: EMS Limitations: no limitations - History of Present Illness Initial Comments: 82-year-old female presents emergency department reporting left lower quadrant abdominal pain. States that the pain was going on throughout the day. Later this evening she felt as if she had some stiffness in her left toes and this is what prompted her to call the EMS. She arrives and denies any stiffness in her toes at this time. No numbness, tingling or weakness in her extremities. She states that she is continuing to have the left lower quadrant abdominal pain however it is mild. She denies history of dissection or aneurysm. No fevers. Denies any changes in her bowel or bladder habits. No back pain. Denies any chest pain or shortness of breath. No other alleviating, precipitating or modifying factors - Related Data Home Medications Medication Instructions Recorded Confirmed Omeprazole 40 mg PO DAILY 08/24/17 04/22/23 FLUoxetine HCL [PROzac] 40 mg PO DAILY 05/21/21 04/22/23 Acetaminophen Tab [Tylenol] 500 mg PO Q6HR PRN 10/30/21 04/22/23 busPIRone HCl [Buspar] 5 mg PO BID 10/30/21 04/22/23 Albuterol Nebulized [Ventolin 2.5 mg INHALATION RT-QID PRN 07/27/22 04/22/23 Nebulized] Cetirizine HCl [Zyrtec] 10 mg PO DAILY 07/27/22 04/22/23 Cholecalciferol [Vitamin D3 (25 25 mcg PO DAILY 07/27/22 04/22/23 Mcg = 1000 Iu)] Fluticasone/Umeclidin/Vilanter 1 puff INHALATION RT-DAILY 11/14/22 04/22/23 [Trelegy Ellipta 100-62.5-25] Memantine [Namenda] 10 mg PO BID 04/22/23 04/22/23 traMADol HCl [Ultram] 50 mg PO BID PRN 04/22/23 04/22/23 Previous Rx's Medication Instructions Recorded Albuterol Inhaler [Ventolin Hfa 2 puff INHALATION RT-Q4H PRN #1 07/01/22 Inhaler] each ALPRAZolam [Xanax] 0.5 mg PO BID PRN #6 tab 01/04/23 Apixaban [Eliquis] 2.5 mg PO BID 30 Days #60 tab 04/24/23 polyethylene glycoL 3350 [Miralax] 17 gm PO DAILY #527 gm 06/02/23 Allergies Allergy/AdvReac Type Severity Reaction Status Date / Time budesonide [From Symbicort] Allergy Unknown Verified 06/01/23 23:05 formoterol [From Symbicort] Allergy Unknown Verified 06/01/23 23:05 gabapentin Allergy Unknown Verified 06/01/23 23:05 ibuprofen Allergy Unknown Verified 06/01/23 23:05 Iodinated Contrast Media Allergy Unknown Verified 06/01/23 23:05 [Iodinated Contrast- Oral and IV Dye] iodine Allergy Rash/Hives Verified 06/01/23 23:05 Sulfa (Sulfonamide Allergy Rash/Hives Verified 06/01/23 23:05 Antibiotics) topiramate [From Topamax] Allergy Unknown Verified 06/01/23 23:05 lorazepam [From Ativan] AdvReac Hallucinati Verified 06/01/23 23:05 ons prednisone AdvReac dizziness Verified 06/01/23 23:05 zolpidem tartrate AdvReac Hallucinati Verified 06/01/23 23:05 [From Ambien] ons Review of Systems ROS Statement: Those systems with pertinent positive or pertinent negative responses have been documented in the HPI. ROS Other: All systems not noted in ROS Statement are negative. Past Medical History Past Medical History: Atrial Fibrillation, Asthma, COPD, CVA/TIA, Eye Disorder, GERD/Reflux, Hyperlipidemia, Pneumonia Additional Past Medical History / Comment(s): Chronic atrial fibrillation per PMH but pt has no recollection of this, bronchiectasis, essential tremors, previous TIA, chronic lumbar back pain, past 6 months R shoulder/cervical pain, balance difficulty with falls, occasional low urinary output and uses lasix prn for this, bilateral varicose veins, dysphagia-able to take pills one at a time with water, small hiatal hernia, restless leg syndrome, seasonal ALLERGIES, History of Any Multi-Drug Resistant Organisms: MRSA Date of last positivie culture/infection: 03/22/23 MDRO Source:: Left Heel Past Surgical History: Hysterectomy Additional Past Surgical History / Comment(s): 11/27/15 EGD with bx, bilateral cataracts removed with lens implants, colonoscopy with 1 benign polypectomy. Past Anesthesia/Blood Transfusion Reactions: No Reported Reaction Past Psychological History: Anxiety, Depression Smoking Status: Current some day smoker Past Alcohol Use History: None Reported Past Drug Use History: None Reported - Past Family History Father Family Medical History: Cancer Additional Family Medical History / Comment(s): Pt thinks father might have from stomach cancer. She was 2 yrs old when he . Sister(s) Family Medical History: Cancer Additional Family Medical History / Comment(s): Half sister with brain cancer. Mother Family Medical History: Dementia Additional Family Medical History / Comment(s): Mother had gallstones and a partial thyroidectomy for noncancerous reasons. General Exam Limitations: no limitations General appearance: alert, in no apparent distress Head exam: Present: atraumatic, normocephalic, normal inspection Eye exam: Present: normal appearance, PERRL, EOMI. Absent: scleral icterus, conjunctival injection, periorbital swelling ENT exam: Present: normal exam, mucous membranes moist Neck exam: Present: normal inspection. Absent: tenderness, meningismus, lymphadenopathy Respiratory exam: Present: normal lung sounds bilaterally. Absent: respiratory distress, wheezes, rales, rhonchi, stridor Cardiovascular Exam: Present: regular rate, normal rhythm, normal heart sounds. Absent: systolic murmur, diastolic murmur, rubs, gallop, clicks GI/Abdominal exam: Present: soft, tenderness (Left lower quadrant), normal bowel sounds. Absent: distended, guarding, rebound, rigid Extremities exam: Present: normal inspection, full ROM, normal capillary refill, other (Patient does have palpable bilateral lower extremity distal pulses. I additionally used the ultrasound to confirm DP and PT pulses bilaterally). Abs ent: tenderness, pedal edema, joint swelling, calf tenderness Back exam: Present: normal inspection Neurological exam: Present: alert, oriented X3, CN II-XII intact Psychiatric exam: Present: normal affect, normal mood Skin exam: Present: warm, dry, intact, normal color. Absent: rash Course Vital Signs 06/01/23 06/01/23 06/02/23 23:03 23:45 03:30 Temperature 97.8 F Pulse Rate 69 65 64 Respiratory 18 16 16 Rate Blood Pressure 112/78 123/66 132/78 O2 Sat by Pulse 95 96 95 Oximetry 06/02/23 08:59 Temperature Pulse Rate 64 Respiratory 16 Rate Blood Pressure 120/66 O2 Sat by Pulse 95 Oximetry Medical Decision Making - Medical Decision Making Was pt. sent in by a medical professional or institution ([facility], [employer], urgent care, hospital, or fci...) When possible be specific @ -No Did you speak to anyone other than the patient for history (EMS, parent, family, police, friend...)? What history was obtained from this source @ -EMS Did you review nursing and triage notes (agree or disagree)? Why? @ -I reviewed and agree with nursing and triage notes Were old charts reviewed (outside hosp., previous admission, EMS record, old EKG, old radiological studies, urgent care reports/EKG's, fci records)? Report findings @ -No old charts were reviewed Differential Diagnosis (chest pain, altered mental status, abdominal pain women, abdominal pain men, vaginal bleeding, weakness, fever, dyspnea, syncope, headache, dizziness, GI bleed, back pain, seizure, CVA, palpatations, mental health, musculoskeletal)? @ -Differential Abdominal Pain Women: Appendicitis, Cholecystitis, diverticulosis, ischemic bowel, pancreatitis, hep atitis, UTI, gastroenteritis, AAA, incarcerated hernia, bowel obstruction, constipation, inflammatory bowel, hepatitis, peptic ulcer disease, splenic infarction, perforated viscus, vulvitis, ovarian torsion, PID, kidney stone, placenta abruption, this is not meant to be an all-inclusive list EKG interpreted by me (3pts min.). @ -Yes and demonstrates sinus rhythm with a rate of 63. WI interval 187. QRS 92. QTc of 465. No acute ST segment elevations or depressions X-rays interpreted by me (1pt min.). @ -None done CT interpreted by me (1pt min.). @ -Yes and demonstrates some constipation U/S interpreted by me (1pt. min.). @ -None done What testing was considered but not performed or refused? (CT, X-rays, U/S, labs)? Why? @ -None What meds were considered but not given or refused? Why? @ -None Did you discuss the management of the patient with other professionals (professionals i.e. [facility] Childress, [employer]ET [employer]ADER, lab, RT, psych nurse, medical social consultant, drier unloader, teacher, disability hearing officer, onsite case manager)? Give summary @ -No Was smoking cessation discussed for >3mins.? @ -No Was critical care preformed (if so, how long)? @ -No Were there social determinants of health that impacted care today? How? ( Homelessness, low income, unemployed, alcoholism, drug addiction, transportation, low edu. Level, literacy, decrease access to med. care, half-way, rehab)? @ -No Was there de-escalation of care discussed even if they declined (Discuss DNR or withdrawal of care, Hospice)? DNR status @ -No What co-morbidities impacted this encounter? (DM, HTN, Smoking, COPD, CAD, Cancer, CVA, ARF, Chemo, Hep., AIDS, mental health diagnosis, sleep apnea, morbid obesity)? @ -A-fib, hypertension Was patient admitted / discharged? Hospital course, mention meds given and route, prescriptions, significant lab abnormalities, going to OR and other pertinent info. @ -Upon arrival patient was placed into bed 5. Thorough history and physical exam was performed. IV was established. Laboratory studies are conducted. I did find the patient's pulses in her lower extremities by palpation and confirmed this with Doppler. She is able to move all digits in her feet appropriately. Patient does go for CT as she is reporting abdominal pain. Results are discussed with patient. Patient is resting comfortably. Recomme nded that the patient move her bowels using MiraLAX. Follow-up with her doctor and return for any new or worsening symptoms patient discharged in stable condition. EMS does transport the patient back to the house. We did call her next of kin several times and eventually received call back in the morning Undiagnosed new problem with uncertain prognosis? @ -No Drug Therapy requiring intensive monitoring for toxicity (Heparin, Nitro, Insulin, Cardizem)? @ -No Were any procedures done? @ -No Diagnosis/symptom? @ -Acute abdominal pain Acute, or Chronic, or Acute on Chronic? @ -Acute Uncomplicated (without systemic symptoms) or Complicated (systemic symptoms)? @ -Complicated Side effects of treatment? @ -No Exacerbation, Progression, or Severe Exacerbation? @ -No Poses a threat to life or bodily function? How? (Chest pain, [place], [place], pneumonia, PE, COPD, DKA, ARF, appy, cholecystitis, CVA, Diverticulitis, Homicidal, Suicidal, threat to staff... and all critical care pts) @ -No - Lab Data Result diagrams: 06/02/23 00:35 06/02/23 00:35 Lab Results 06/01/23 06/02/23 06/02/23 Range/Units 23:17 00:35 00:35 WBC 6.2 (3.8-10.6) k/uL RBC 3.93 (3.80-5.40) m/uL Hgb 11.4 (11.4-16.0) gm/dL Hct 34.3 (34.0-46.0) % MCV 87.2 (80.0-100.0) fL MCH 28.9 (25.0-35.0) pg MCHC 33.2 (31.0-37.0) g/dL RDW 15.8 H (11.5-15.5) % Plt Count 265 (150-450) k/uL MPV 7.0 Neutrophils % 54 % Lymphocytes % 33 % Monocytes % 7 % Eosinophils % 3 % Basophils % 0 % Neutrophils # 3.3 (1.3-7.7) k/uL Lymphocytes # 2.1 (1.0-4.8) k/uL Monocytes # 0.4 (0-1.0) k/uL Eosinophils # 0.2 (0-0.7) k/uL Basophils # 0.0 (0-0.2) k/uL Sodium 137 (137-145) mmol/L Potassium 3.6 (3.5-5.1) mmol/L Chloride 107 (98-107) mmol/L Carbon Dioxide 26 (22-30) mmol/L Anion Gap 4 mmol/L BUN 13 (7-17) mg/dL Creatinine 0.65 (0.52-1.04) mg/dL Est GFR (CKD-EPI)AfAm >90 (>60 ml/min/1.73 sqM) Est GFR (CKD-EPI)NonAf 83 (>60 ml/min/1.73 sqM) Glucose 92 (74-99) mg/dL Plasma Lactic Acid Osmel (0.7-2.0) mmol/L Calcium 9.0 (8.4-10.2) mg/dL Total Bilirubin 0.6 (0.2-1.3) mg/dL AST 18 (14-36) U/L ALT 10 (4-34) U/L Alkaline Phosphatase 129 H (38-126) U/L Total Protein 5.9 L (6.3-8.2) g/dL Albumin 3.4 L (3.5-5.0) g/dL Lipase 41 (23-300) U/L Urine Color Colorless Urine Appearance Clear (Clear) Urine pH 6.5 (5.0-8.0) Ur Specific [place] 1.002 (1.001-1.035) Urine Protein Negative (Negative) Urine Glucose (UA) Negative (Negative) Urine Ketones Negative (Negative) Urine Blood Trace H (Negative) Urine Nitrite Negative (Negative) Urine Bilirubin Negative (Negative) Urine Urobilinogen <2.0 (<2.0) mg/dL Ur Leukocyte Esterase Negative (Negative) Urine RBC 1 (0-5) /hpf 06/02/23 Range/Units 00:35 WBC (3.8-10.6) k/uL RBC (3.80-5.40) m/uL Hgb (11.4-16.0) gm/dL Hct (34.0-46.0) % MCV (80.0-100.0) fL MCH (25.0-35.0) pg MCHC (31.0-37.0) g/dL RDW (11.5-15.5) % Plt Count (150-450) k/uL MPV Neutrophils % % Lymphocytes % % Monocytes % % Eosinophils % % Basophils % % Neutrophils # (1.3-7.7) k/uL Lymphocytes # (1.0-4.8) k/uL Monocytes # (0-1.0) k/uL Eosinophils # (0-0.7) k/uL Basophils # (0-0.2) k/uL Sodium (137-145) mmol/L Potassium (3.5-5.1) mmol/L Chloride (98-107) mmol/L Carbon Dioxide (22-30) mmol/L Anion Gap mmol/L BUN (7-17) mg/dL Creatinine (0.52-1.04) mg/dL Est GFR (CKD-EPI)AfAm (>60 ml/min/1.73 sqM) Est GFR (CKD-EPI)NonAf (>60 ml/min/1.73 sqM) Glucose (74-99) mg/dL Plasma Lactic Acid Osmel 0.8 (0.7-2.0) mmol/L Calcium (8.4-10.2) mg/dL Total Bilirubin (0.2-1.3) mg/dL AST (14-36) U/L ALT (4-34) U/L Alkaline Phosphatase (38-126) U/L Total Protein (6.3-8.2) g/dL Albumin (3.5-5.0) g/dL Lipase (23-300) U/L Urine Color Urine Appearance (Clear) Urine pH (5.0-8.0) Ur Specific [place] (1.001-1.035) Urine Protein (Negative) Urine Glucose (UA) (Negative) Urine Ketones (Negative) Urine Blood (Negative) Urine Nitrite (Negative) Urine Bilirubin (Negative) Urine Urobilinogen (<2.0) mg/dL Ur Leukocyte Esterase (Negative) Urine RBC (0-5) /hpf Disposition Clinical Impression: Abdominal pain, Constipation Disposition: HOME SELF-CARE Condition: Stable Instructions (If sedation given, give patient instructions): Abdominal Pain (ED) Additional Instructions: I recommend MiraLAX to help you move your bowels. Follow-up with your doctor and return for any new or worsening symptoms Prescriptions: polyethylene glycoL 3350 [Miralax] 17 gm PO DAILY #527 gm Is patient prescribed a controlled substance at d/c from ED?: No Referrals: Pablo De La Garza DO [Primary Care Provider] - 1-2 days Time of Disposition: 03:36
--- NOTE | 2023-06-02 02:51 | CT ---
EXAM: CT Abdomen and Pelvis With Intravenous Contrast CLINICAL HISTORY: ITS.REASON CT Reason: abdominal pain TECHNIQUE: Axial computed tomography images of the abdomen and pelvis with intravenous contrast. CTDI is 16.4 mGy and DLP is 703.5 mGy-cm. This CT exam was performed using one or more of the following dose reduction techniques: automated exposure control, adjustment of the mA and/or kV according to patient size, and/or use of iterative reconstruction technique. COMPARISON: CT chest and pelvis 11/14/2022. FINDINGS: Lung bases: Right lower lobe opacities. ABDOMEN: Liver: Hepatic steatosis. Gallbladder and bile ducts: Unremarkable. No calcified stones. No ductal dilation. Pancreas: Dilated main pancreatic duct. Spleen: Unremarkable. No splenomegaly. Adrenals: Unremarkable. No mass. Kidneys and ureters: Unremarkable. No solid mass. No hydronephrosis. Stomach and bowel: Large pancolonic stool burden. Large diverticulum of the second portion of the duodenum. Colonic diverticulosis. No mucosal thickening. PELVIS: Appendix: No findings to suggest acute appendicitis. Bladder: Distended. No mass. Reproductive: Hysterectomy. ABDOMEN and PELVIS: Intraperitoneal space: Unremarkable. No free air. No significant fluid collection. Bones/joints: Left intertrochanteric femur fracture status post open reduction internal fixation. Compression fractures of T11, L2, L3, and L5 are not significantly changed from prior examination. Diffusely decreased osseous mineralization. No dislocation. Soft tissues: Unremarkable. Vasculature: Severe atherosclerotic calcification of the abdominal aorta and branches. Severe coronary artery atherosclerotic calcifications. No abdominal aortic aneurysm. Lymph nodes: Unremarkable. No enlarged lymph nodes. IMPRESSION: 1. Right lower lobe opacities. This may represent pneumonia in the appropriate clinical scenario. 2. Large pancolonic stool burden. Recommend correlation for constipation. 3. Severe coronary artery atherosclerotic calcifications. 4. Dilated main pancreatic duct. Consider evaluation with MRCP.
[2023-06-02 04:06] VITALS: PULSE 64
[2023-06-02 09:31] VITALS: BP 120/66
== END 2023-06-02 09:15 | disposition home or self-care (01) ==
LOC: EC 22:41
DX: K59.00 Constipation, unspecified (principal); J44.89 Other specified chronic obstructive pulmonary disease; E78.5 Hyperlipidemia, unspecified; I25.10 Atherosclerotic heart disease of native coronary artery without angina pectoris; I48.91 Unspecified atrial fibrillation; K21.9 Gastro-esophageal reflux disease without esophagitis; F41.9 Anxiety disorder, unspecified; F32.A Depression, unspecified; F17.200 Nicotine dependence, unspecified, uncomplicated; Z79.899 Other long term (current) drug therapy; Z88.2 Allergy status to sulfonamides; Z88.8 Allergy status to other drugs, medicaments and biological substances; Z91.041 Radiographic dye allergy status; Z88.5 Allergy status to narcotic agent
CPT/HCPCS: 99284 ×2; 96374 ×2; 96375 ×3; 96361 ×2; 36415; 80053; 83605; 83690; 85025; 81001; 74177; J1200; J2930; J3490; Q9967; 93005

== ENCOUNTER → 2023-07-25 | Outpatient (CLI) | payer MEDICARE ==
--- NOTE | 2023-07-29 12:00 | MR ---
EXAMINATION TYPE: MR MRCP DATE OF EXAM: 07/25/2023 4:28 PM CLINICAL INDICATION:Female, 82 years old with history of R93.3 R10.12 LUQ PAIN, Abnormal CT, pancreat ic duct dilatation, constipation COMPARISON: 06/02/2023. TECHNIQUE: Multi planar, T2-weighted imaging with and without fat saturation and chemical shift imag ing was performed of the abdomen. Then, heavily T2 weighted imaging (half-Fourier acquisition single- shot turbo spin-echo) was utilized in order to study the biliary system. Maximum intensity projectio n images were reconstructed from the original data of the biliary tree. 3D images were created on a [employer] work station. No Gadolinium given. FINDINGS: Lower Thorax: Large hiatal hernia present. MRCP: * The intrahepatic ducts have a normal appearance. * The common bile duct at the level of the pancreatic head measures 8 mm in size. * The common hepatic duct measures 5 mm in size. 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 There is mild dilation of the pancreatic du ct up to 4 mm extending into the tail. * The gallbladder appears unremarkable. Abdomen: Liver: Unremarkable. Pancreas: No definitive mass visualized. Tortuosity of the main pancreatic duct with pancreatic divis um as described above. Spleen: Unremarkable. Adrenal glands: Unremarkable. Kidneys: Unremarkable. Stomach and Bowel: Unremarkable as visualized. Peritoneum: No evidence of pneumoperitoneum or free fluid. Vasculature: Unremarkable. No aortic aneurysm. Musculoskeletal: The osseous structures appear intact. Lymph Nodes: No gross evidence for lymphadenopathy. Abdominal wall: Unremarkable. IMPRESSION: 1. Pancreatic divisum morphology with mild dilation of the pancreatic duct extending from the papill a to the tail. No masses definitively visualized. 2. Large hiatal hernia.
== END | disposition home or self-care (01) ==
LOC: RADMRIMAIN 15:21
PROVIDERS: ATTEND Physician Assistant Medical
DX: K86.89 Other specified diseases of pancreas (principal); Q45.3 Other congenital malformations of pancreas and pancreatic duct; K44.9 Diaphragmatic hernia without obstruction or gangrene; R93.3 Abnormal findings on diagnostic imaging of other parts of digestive tract
CPT/HCPCS: 74181

== ENCOUNTER 2023-08-29 16:58 | Emergency (ER) | payer MEDICARE ==
--- NOTE | 2023-08-29 17:24 | ED ---
Fall HPI - General Source: patient, EMS, RN notes reviewed Mode of arrival: EMS <Destiny Mcmahan - Last Filed: 08/29/23 19:43> <Abraham Olivares - Last Filed: 08/30/23 00:56> - General Chief Complaint: Fall Stated Complaint: Fall Time Seen by Provider: 08/29/23 17:01 - History of Present Illness Initial Comments: 82-year-old female presented to the ER via EMS with a chief complaint of a fall. HPI mainly provided by daughter as patient has dementia. Daughter states patient was washing her hands after using the restroom earlier today and tripped over her slippers falling landing on her tailbone. Denies head injury, LOC, or blood thinner use. Records state patient is on Eliquis. Daughter reports patient has been complaining of back pain and been moving very slowly and needing more assistance than normal as she is in pain. Patient did take prescribed tramadol. Patient also is reporting right knee pain as she scraped it during the fall. Patient denies any headache, double blurry vision, cough, congestion, chest pain, shortness of breath, abdominal pain or peripheral edema. (Destiny Mcmahan) - Related Data Home Medications Medication Instructions Recorded Confirmed Omeprazole 40 mg PO DAILY 08/24/17 04/22/23 FLUoxetine HCL [PROzac] 40 mg PO DAILY 05/21/21 04/22/23 Acetaminophen Tab [Tylenol] 500 mg PO Q6HR PRN 10/30/21 04/22/23 busPIRone HCl [Buspar] 5 mg PO BID 10/30/21 04/22/23 Albuterol Nebulized [Ventolin 2.5 mg INHALATION RT-QID PRN 07/27/22 04/22/23 Nebulized] Cetirizine HCl [Zyrtec] 10 mg PO DAILY 07/27/22 04/22/23 Cholecalciferol [Vitamin D3 (25 25 mcg PO DAILY 07/27/22 04/22/23 Mcg = 1000 Iu)] Fluticasone/Umeclidin/Vilanter 1 puff INHALATION RT-DAILY 11/14/22 04/22/23 [Trelegy Ellipta 100-62.5-25] Memantine [Namenda] 10 mg PO BID 04/22/23 04/22/23 traMADol HCl [Ultram] 50 mg PO BID PRN 04/22/23 04/22/23 Previous Rx's Medication Instructions Recorded Albuterol Inhaler [Ventolin Hfa 2 puff INHALATION RT-Q4H PRN #1 07/01/22 Inhaler] each ALPRAZolam [Xanax] 0.5 mg PO BID PRN #6 tab 01/04/23 Apixaban [Eliquis] 2.5 mg PO BID 30 Days #60 tab 04/24/23 polyethylene glycoL 3350 [Miralax] 17 gm PO DAILY #527 gm 06/02/23 Allergies Allergy/AdvReac Type Severity Reaction Status Date / Time budesonide [From Symbicort] Allergy Unknown Verified 08/29/23 17:05 formoterol [From Symbicort] Allergy Unknown Verified 08/29/23 17:05 gabapentin Allergy Unknown Verified 08/29/23 17:05 ibuprofen Allergy Unknown Verified 08/29/23 17:05 Iodinated Contrast Media Allergy Unknown Verified 08/29/23 17:05 [Iodinated Contrast- Oral and IV Dye] iodine Allergy Rash/Hives Verified 08/29/23 17:05 Sulfa (Sulfonamide Allergy Rash/Hives Verified 08/29/23 17:05 Antibiotics) topiramate [From Topamax] Allergy Unknown Verified 08/29/23 17:05 lorazepam [From Ativan] AdvReac Hallucinati Verified 08/29/23 17:05 ons prednisone AdvReac dizziness Verified 08/29/23 17:05 zolpidem tartrate AdvReac Hallucinati Verified 08/29/23 17:05 [From Ambien] ons Review of Systems ROS Other: All systems not noted in ROS Statement are negative. <Destiny Mcmahan - Last Filed: 08/29/23 19:43> ROS Other: All systems not noted in ROS Statement are negative. <Abraham Olivares - Last Filed: 08/30/23 00:56> ROS Statement: Those systems with pertinent positive or pertinent negative responses have been documented in the HPI. Past Medical History Past Medical History: Atrial Fibrillation, Asthma, COPD, CVA/TIA, Eye Disorder, GERD/Reflux, Hyperlipidemia, Pneumonia Additional Past Medical History / Comment(s): Chronic atrial fibrillation per PMH but pt has no recollection of this, bronchiectasis, essential tremors, previous TIA, chronic lumbar back pain, past 6 months R shoulder/cervical pain, balance difficulty with falls, occasional low urinary output and uses lasix prn for this, bilateral varicose veins, dysphagia-able to take pills one at a time with water, small hiatal hernia, restless leg syndrome, seasonal ALLERGIES, History of Any Multi-Drug Resistant Organisms: MRSA Date of last positivie culture/infection: 03/22/23 MDRO Source:: Left Heel Past Surgical History: Hysterectomy Additional Past Surgical History / Comment(s): 11/27/15 EGD with bx, bilateral cataracts removed with lens implants, colonoscopy with 1 benign polypectomy. Past Anesthesia/Blood Transfusion Reactions: No Reported Reaction Past Psychological History: Anxiety, Depression Smoking Status: Current some day smoker Past Alcohol Use History: None Reported Past Drug Use History: None Reported - Past Family History Father Family Medical History: Cancer Additional Family Medical History / Comment(s): Pt thinks father might have from stomach cancer. She was 2 yrs old when he . Sister(s) Family Medical History: Cancer Additional Family Medical History / Comment(s): Half sister with brain cancer. Mother Family Medical History: Dementia Additional Family Medical History / Comment(s): Mother had gallstones and a partial thyroidectomy for noncancerous reasons. <Destiny Mcmahan - Last Filed: 08/29/23 19:43> General Exam Limitations: no limitations General appearance: alert, in no apparent distress Head exam: Present: atraumatic, normocephalic, normal inspection Eye exam: Present: normal appearance, PERRL, EOMI. Absent: scleral icterus, conjunctival injection, periorbital swelling Pupils: Present: normal accommodation ENT exam: Present: normal exam, normal oropharynx, mucous membranes moist Neck exam: Present: normal inspection. Absent: tenderness, meningismus, lymphad enopathy Respiratory exam: Present: normal lung sounds bilaterally. Absent: respiratory distress, wheezes, rales, rhonchi, stridor Cardiovascular Exam: Present: regular rate, normal rhythm, normal heart sounds. Absent: systolic murmur, diastolic murmur, rubs, gallop, clicks Extremities exam: Present: normal inspection, full ROM, normal capillary refill, other (negative leg roll bilaterally). Absent: tenderness, pedal edema, joint swelling, calf tenderness Back exam: Present: tenderness (Lumbar spine and pelvic girdle) Neurological exam: Present: alert, CN II-XII intact Skin exam: Present: warm, dry, intact, normal color, abrasion (Right knee). Absent: rash <Destiny Mcmahan - Last Filed: 08/29/23 19:43> Course Vital Signs 08/29/23 08/29/23 08/29/23 17:00 17:05 20:24 Temperature 98.3 F 98.5 F Pulse Rate 62 65 Respiratory 16 16 Rate Blood Pressure 130/73 125/70 O2 Sat by Pulse 90 L 95 91 L Oximetry Medical Decision Making - Radiology Data Radiology results: report reviewed, image reviewed <eDstiny Mcmahan - Last Filed: 08/29/23 19:43> <Abraham Olivares - Last Filed: 08/30/23 00:56> - Medical Decision Making Was pt. sent in by a medical professional or institution (, PA, INTELLIGENCE INTERN, urgent care, hospital, or longterm...) When possible be specific @ -No Did you speak to anyone other than the patient for history (EMS, parent, family, police, friend...)? What history was obtained from this source @ -Daughter providing majority of HPI. Did you review nursing and triage notes (agree or disagree)? Why? @ -I reviewed and agree with nursing and triage notes Were old charts reviewed (outside hosp., previous admission, EMS record, old EKG, old radiological studies, urgent care reports/EKG's, longterm records)? Report findings @ -No old charts were reviewed Differential Diagnosis (chest pain, altered mental status, abdominal pain women, abdominal pain men, vaginal bleeding, weakness, fever, dyspnea, syncope, headache, dizziness, GI bleed, back pain, seizure, CVA, palpatations, mental health, musculoskeletal)? @ -Differential Musculoskeletal: Muscular strain, contusion, ligament sprain, fracture, arthritis, septic arthritis, bursitis, cellulitis, muscle spasm, nerve compression, DVT, arterial occlusion, herpes zoster, electrolyte abnormality, tumor.... This is not meant to be in all inclusive list EKG interpreted by me (3pts min.). @ -None X-rays interpreted by me (1pt min.). @ -Right hip AP pelvis x-ray interpreted by me negative for acute process. There is mild right hip osteoarthritis. Right knee x-ray interpreted by me negative for acute process. Arthritis present. Lumbar spine x-rays significant for multiple compression fractures. CT interpreted by me (1pt min.). @ -Pending U/S interpreted by me (1pt. min.). @ -None done What testing was considered but not performed or refused? (CT, X-rays, U/S, labs)? Why? @ -None What meds were considered but not given or refused? Why? @ -None Did you discuss the management of the patient with other professionals (professionals i.e. , PA, INTELLIGENCE INTERN, lab, RT, psych nurse, licensed social worker, middle school assistant principal, teacher, commanding officer homicide squad, case picker)? Give summary @ -No Was smoking cessation discussed for >3mins.? @ -No Was critical care preformed (if so, how long)? @ -No Were there social determinants of health that impacted care today? How? (Homelessness, low income, unemployed, alcoholism, drug addiction, transportation, low edu. Level, literacy, decrease access to med. care, fci, rehab)? @ -No Was there de-escalation of care discussed even if they declined (Discuss DNR or withdrawal of care, Hospice)? DNR status @ -No What co-morbidities impacted this encounter? (DM, HTN, Smoking, COPD, CAD, Cancer, CVA, ARF, Chemo, Hep., AIDS, mental health diagnosis, sleep apnea, morbid obesity)? @ -None Was patient admitted / discharged? Hospital course, mention meds given and route, prescriptions, significant lab abnormalities, going to OR and other pertinent info. @ -82-year-old female presented to the ER with a chief complaint of a fall. History and physical exam completed. Vitals stable. Patient no signs of distress and nontoxic-appearing. Bilateral upper and lower extremities neurovascular intact. No acute neurological findings on exam. Patient received by mouth Tylenol. Right hip AP pelvis and right knee x-rays interpreted by me negative for acute process. When compared to prior images lumbar x-rays are concerning of fracture. CT obtained at that time. Patient signed out to Abraham Olivares PA-C pending Ct results and disposition. (Destiny Mcmahan) Patient is signed out to me by Destiny Mcmahan PA-C pending CT results. CT shows osteopenia with multilevel lumbar spondylosis. Multiple compression fracture deformities, including T11 L2-L3 appears similar to 06/02/2023 and no acute fracture lucencies are seen. On reassessment the patient is resting comfortably and her pain is well-controlled. Patient and daughter educated on today's findings. Discharged home. Follow-up with PCP. Report back to ER with any new or worsening symptoms. Discussed return parameters and answered all questions. Patient conveyed verbal understanding and agreed to the plan. I discussed this case in detail with my attending Dr. Ayala Diagnosis/symptom? @Back pain Acute, or Chronic, or Acute on Chronic? @Acute on chronic Uncomplicated (without systemic symptoms) or Complicated (systemic symptoms)? @Uncomplicated Side effects of treatment? @None Exacerbation, Progression, or Severe Exacerbation] @No Poses a threat to life or bodily function? @Low likelihood Diagnosis/symptom? @Fall Acute, or Chronic, or Acute on Chronic? @Acute Uncomplicated (without systemic symptoms) or Complicated (systemic symptoms)? @Uncomplicated Side effects of treatment? @None Exacerbation, Progression, or Severe Exacerbation] @No Poses a threat to life or bodily function? @Low likelihood (Abraham Olivares) Disposition <Destiny Mcmahan - Last Filed: 08/29/23 19:43> Is patient prescribed a controlled substance at d/c from ED?: No Time of Disposition: 20:03 <Abraham Olivares - Last Filed: 08/30/23 00:56> Clinical Impression: Fall, Back pain Disposition: HOME SELF-CARE Condition: Good Instructions (If sedation given, give patient instructions): Fall Prevention for Older Adults (ED), Back Pain (ED) Additional Instructions: Follow-up with PCP. Report back to ER with any new or worsening symptoms. Referrals: Pablo De La Garza DO [Primary Care Provider] - 1-2 days
[2023-08-29 17:26] VITALS: RESP 16
[2023-08-29] MEDS: ACETAMINOPHEN TAB 325 MG TAB PO STA (17:27)
--- NOTE | 2023-08-29 18:29 | XR ---
EXAMINATION TYPE: XR Hip RT and AP Pelvis DATE OF EXAM: 08/29/2023 6:06 PM CLINICAL INDICATION:Female, 82 years old with history of pain; COMPARISON: None. TECHNIQUE: XR Hip RT and AP Pelvis; hip was examined in the frontal and lateral projections and a AP pelvis. FINDINGS: No evidence for acute process, joint dislocation or significant soft tissue swelling. Left hip fixation hardware appears intact. Right hip mild osteoarthrosis changes with osteophyte form ation and joint space tearing. IMPRESSION: 1. No acute process. 2. Mild right hip osteoarthrosis. 3. Left hip fixation changes appear intact.
--- NOTE | 2023-08-29 18:32 | XR ---
EXAMINATION TYPE: XR lumbar spine 2 or 3V DATE OF EXAM: 08/29/2023 6:06 PM CLINICAL INDICATION:Female, 82 years old with history of pain; COMPARISON: None TECHNIQUE: XR lumbar spine 2 or 3V - Frontal, lateral and coned in L5-S1 lateral views of the spine. FINDINGS: Severe degeneration changes spine with biconcave compression deformities which are poorly e valuated on radiography. There are multiple levels of at least 50% height loss most pronounced at L3 and T11. Osteophyte formation disc space narrowing and facet arthropathy present. IMPRESSION: Severe degeneration changes with multilevel wedge compression deformities some of which appear stable from prior. Subtle differences are to discern on radiography.
--- NOTE | 2023-08-29 18:39 | XR ---
EXAMINATION TYPE: XR knee complete RT DATE OF EXAM: 08/29/2023 6:06 PM CLINICAL INDICATION:Female, 82 years old with history of pain; PH[facility] COMPARISON: None. TECHNIQUE: XR knee complete RT; examined in Frontal, lateral and oblique projections. FINDINGS: No evidence of any acute osseous pathology, soft tissue swelling, or joint effusion is no angela. Tricompartmental osteophyte formation involving the femoral condyles, tibial plateau and patella . Mild joint space narrowing. IMPRESSION: 1. No acute osseous pathology. 2. [id number] tricompartmental osteoarthritic changes.
--- NOTE | 2023-08-29 19:51 | CT ---
EXAMINATION TYPE: CT lumbar spine wo con CT DLP: 548.8 mGycm, Automated exposure control for dose reduction was used. DATE OF EXAM: 08/29/2023 7:19 PM COMPARISON: Same day lumbar radiographs, CT abdomen and pelvis 06/02/2023 CLINICAL INDICATION:Female, 82 years old with history of pain; PHH, pain after fall TECHNIQUE: CT of the lumbar spine was performed without contrast. Multiplanar soft tissue and bone windows were obtained and reviewed. . Contrast used: None. FINDINGS: Generalized osteopenia. No focal lytic/blastic bony lesion. There are 5 lumbar-type vertebral bodies. Moderate loss of height mostly along the superior endplate with mild anterior wedging of T11. Minimal retropulsion at the posterior superior aspect of the verte bral body causes mild canal stenosis. T12 and L1 vertebral body heights are preserved. Mild anterior wedging of L2 with height loss along the superior endplate and no appreciable retropulsion. Moderate anterior wedging of L3 with height loss predominantly along the inferior vertebral body. Mild retropu lsion at the posterior inferior aspect of this vertebral body causes mild canal stenosis. The L4 and L5 vertebral bodies heights appear maintained. Slight degenerative retrolisthesis L3 on L4, L4 on L5, and L5 on S1. No acute fracture of the visualized sacrum. Mild degenerative changes of the SI joints . There is mild to moderate multilevel degenerative disc disease and facet arthrosis throughout. No cri tical canal or foraminal stenosis is identified. There are mild canal and foraminal stenoses at L1-L2 , mild to moderate canal and foraminal stenoses at L2-L3, moderate canal and foraminal stenoses L3-L4 . Slightly widened appearance of the facets at this level probably reflect facet effusions. Moderate to severe circumferential spinal and moderate bilateral neuroforaminal stenosis L4-L5. Mild to modera te canal stenosis and neuroforaminal stenoses at L5-S1. Paraspinous soft tissues show no clearly acute abnormality. There is a moderate sized hiatal hernia p artially seen. Moderate vascular calcification throughout the abdominal aorta and branches, with mild ectasia at the level of the diaphragmatic hiatus segment measuring 2.7 cm. More distal aorta shows m ild ectasia measuring 2.3 cm. The aortic bifurcation is patent. There is moderate diffuse calcified a therosclerosis disease throughout the imaged common proximal internal and external iliac arteries. Images of the lung bases show mild/moderate subsegmental atelectatic changes in the right lung base m ore than on the left. A few colonic diverticula are seen. Diverticulum involving the transverse porti on of the duodenum is also suggested. No free fluid or free air is seen. No abdominal pelvic lymphadenopathy. IMPRESSION: 1. Osteopenia with multilevel lumbar spondylosis. 2. Multiple compression fracture deformities, including T11, L2, L3, appear similar to 06/02/2023 and no acute fracture lucencies are seen. 3. MRI may be considered for further evaluation if clinically warranted.
[2023-08-29 20:42] VITALS: BP 125/70; PULSE 65; TEMP 98.5
== END 2023-08-29 20:26 | disposition home or self-care (01) ==
LOC: EC 16:58
DX: M47.816 Spondylosis without myelopathy or radiculopathy, lumbar region (principal); M51.36 Other intervertebral disc degeneration, lumbar region; M85.80 Other specified disorders of bone density and structure, unspecified site; M16.11 Unilateral primary osteoarthritis, right hip; M17.11 Unilateral primary osteoarthritis, right knee; F17.200 Nicotine dependence, unspecified, uncomplicated; Z88.8 Allergy status to other drugs, medicaments and biological substances; Z88.6 Allergy status to analgesic agent; Z91.041 Radiographic dye allergy status; W01.0XXA Fall on same level from slipping, tripping and stumbling without subsequent striking against object, initial encounter
CPT/HCPCS: 72100; 72131; 73502; 99285

== ENCOUNTER 2023-10-13 06:14 | Observation (INO) | payer MEDICARE ==
--- NOTE | 2023-10-13 06:37 | ED ---
General Adult HPI - General Chief complaint: Shortness of Breath Stated complaint: BARBIE Time Seen by Provider: 10/13/23 06:17 Source: patient, EMS, RN notes reviewed Mode of arrival: EMS Limitations: no limitations - History of Present Illness Initial comments: 83-year-old female presents emergency department via EMS chief complaint shortness of breath. She has been having increasing shortness of breath which she states for few weeks. Patient has a history of COPD oxygen dependent on 5 L. Patient states she does have a productive cough with sputum. Patient states that she has had increasing weakness and dyspnea. Patient reports she is unsure if she has had a fever. Patient denies any sick contacts. Patient denies any nasal congestion. Patient states she has a chronic tremor. She lives at home with her son sometimes her daughter. Patient states that her son called EMS this morning. - Related Data Home Medications Medication Instructions Recorded Confirmed Omeprazole 40 mg PO DAILY 08/24/17 04/22/23 FLUoxetine HCL [PROzac] 40 mg PO DAILY 05/21/21 04/22/23 Acetaminophen Tab [Tylenol] 500 mg PO Q6HR PRN 10/30/21 04/22/23 busPIRone HCl [Buspar] 5 mg PO BID 10/30/21 04/22/23 Albuterol Nebulized [Ventolin 2.5 mg INHALATION RT-QID PRN 07/27/22 04/22/23 Nebulized] Cetirizine HCl [Zyrtec] 10 mg PO DAILY 07/27/22 04/22/23 Cholecalciferol [Vitamin D3 (25 25 mcg PO DAILY 07/27/22 04/22/23 Mcg = 1000 Iu)] Fluticasone/Umeclidin/Vilanter 1 puff INHALATION RT-DAILY 11/14/22 04/22/23 [[place] Ellipta 100-62.5-25] Memantine [Namenda] 10 mg PO BID 04/22/23 04/22/23 traMADol HCl [Ultram] 50 mg PO BID PRN 04/22/23 04/22/23 Previous Rx's Medication Instructions Recorded Albuterol Inhaler [Ventolin Hfa 2 puff INHALATION RT-Q4H PRN #1 07/01/22 Inhaler] each ALPRAZolam [Xanax] 0.5 mg PO BID PRN #6 tab 01/04/23 Apixaban [Eliquis] 2.5 mg PO BID 30 Days #60 tab 04/24/23 polyethylene glycoL 3350 [Miralax] 17 gm PO DAILY #527 gm 06/02/23 Allergies Allergy/AdvReac Type Severity Reaction Status Date / Time budesonide [From Symbicort] Allergy Unknown Verified 10/13/23 06:25 formoterol [From Symbicort] Allergy Unknown Verified 10/13/23 06:25 gabapentin Allergy Unknown Verified 10/13/23 06:25 ibuprofen Allergy Unknown Verified 10/13/23 06:25 Iodinated Contrast Media Allergy Unknown Verified 10/13/23 06:25 [Iodinated Contrast- Oral and IV Dye] iodine Allergy Rash/Hives Verified 10/13/23 06:25 Sulfa (Sulfonamide Allergy Rash/Hives Verified 10/13/23 06:25 Antibiotics) topiramate [From Topamax] Allergy Unknown Verified 10/13/23 06:25 lorazepam [From Ativan] AdvReac Hallucinati Verified 10/13/23 06:25 ons prednisone AdvReac dizziness Verified 10/13/23 06:25 zolpidem tartrate AdvReac Hallucinati Verified 10/13/23 06:25 [From Ambien] ons Review of Systems ROS Statement: Those systems with pertinent positive or pertinent negative responses have been documented in the HPI. ROS Other: All systems not noted in ROS Statement are negative. Past Medical History Past Medical History: Atrial Fibrillation, Asthma, COPD, CVA/TIA, Eye Disorder, GERD/Reflux, Hyperlipidemia, Pneumonia Additional Past Medical History / Comment(s): Chronic atrial fibrillation per PMH but pt has no recollection of this, bronchiectasis, essential tremors, previous TIA, chronic lumbar back pain, past 6 months R shoulder/cervical pain, balance difficulty with falls, occasional low urinary output and uses lasix prn for this, bilateral varicose veins, dysphagia-able to take pills one at a time with water, small hiatal hernia, restless leg syndrome, seasonal ALLERGIES, History of Any Multi-Drug Resistant Organisms: MRSA Date of last positivie culture/infection: 03/22/23 MDRO Source:: Left Heel Past Surgical History: Hysterectomy Additional Past Surgical History / Comment(s): 11/27/15 EGD with bx, bilateral cataracts removed with lens implants, colonoscopy with 1 benign polypectomy. Past Anesthesia/Blood Transfusion Reactions: No Reported Reaction Past Psychological History: Anxiety, Depression Smoking Status: Current some day smoker Past Alcohol Use History: None Reported Past Drug Use History: None Reported - Past Family History Father Family Medical History: Cancer Additional Family Medical History / Comment(s): Pt thinks father might have from stomach cancer. She was 2 yrs old when he . Sister(s) Family Medical History: Cancer Additional Family Medical History / Comment(s): Half sister with brain cancer. Mother Family Medical History: Dementia Additional Family Medical History / Comment(s): Mother had gallstones and a partial thyroidectomy for noncancerous reasons. General Exam Limitations: no limitations General appearance: alert, in no apparent distress Head exam: Present: atraumatic, normocephalic, normal inspection ENT exam: Present: normal exam, mucous membranes moist Neck exam: Present: normal inspection. Absent: tenderness, meningismus, lymphadenopathy Respiratory exam: Present: wheezes. Absent: normal lung sounds bilaterally, respiratory distress, rales, rhonchi, stridor Cardiovascular Exam: Present: regular rate, normal rhythm, normal heart sounds. Absent: systolic murmur, diastolic murmur, rubs, gallop, clicks GI/Abdominal exam: Present: soft, normal bowel sounds. Absent: distended, tenderness, guarding, rebound, rigid Course Vital Signs 10/13/23 10/13/23 10/13/23 06:16 07:24 10:00 Temperature 98.2 F Pulse Rate 75 72 80 Respiratory 20 17 17 Rate Blood Pressure 119/72 112/72 135/79 O2 Sat by Pulse 99 98 97 Oximetry EKG Findings - EKG Comments: EKG Findings:: EKG performed at 6: 43 A-fib rate of 74 QRS 89 QT/QTc 351/378 - EKG Results: EKG: interpreted by ERMD Medical Decision Making - Medical Decision Making Was pt. sent in by a medical professional or institution (, PA, [employer], urgent care, hospital, or care home...) When possible be specific @ -No Did you speak to anyone other than the patient for history (EMS, parent, family, police, friend...)? What history was obtained from this source @ -No Did you review nursing and triage notes (agree or disagree)? Why? @ -I reviewed and agree with nursing and triage notes Were old charts reviewed (outside hosp., previous admission, EMS record, old EKG, old radiological studies, urgent care reports/EKG's, care home records)? Report findings @ -No old charts were reviewed Differential Diagnosis (chest pain, altered mental status, abdominal pain women, abdominal pain men, vaginal bleeding, weakness, fever, dyspnea, syncope, headache, dizziness, GI bleed, back pain, seizure, CVA, palpatations, mental health, musculoskeletal)? @ -Differential Dyspnea: Coronary syndrome, arrhythmia, tamponade, asthma, COPD, pulmonary embolism, pneumonia, pneumothorax, pulmonary effusion, anaphylaxis, diabetic ketoacidosis, flailed chest, pulmonary contusion, diaphragmatic rupture, anemia, neuromuscular, this is not meant to be an all-inclusive list. EKG interpreted by me (3pts min.). @ -As above X-rays interpreted by me (1pt min.). @ -Chest x-ray shows rotated exam, COPD changes CT interpreted by me (1pt min.). @ -None done U/S interpreted by me (1pt. min.). @ -None done What testing was considered but not performed or refused? (CT, X-rays, U/S, labs)? Why? @ -None What meds were considered but not given or refused? Why? @ -None Did you discuss the management of the patient with other professionals ([place] i.e., Dr., PA, [employer], lab, RT, psych nurse, child welfare social worker, hand inserter operator, teacher, president and chief commercial officer, residential case manager)? Give summary @ - Dr. Smith for admission for COPD exacerbation, weakness Was smoking cessation discussed for >3mins.? @ -No Was critical care preformed (if so, how long)? @ -No Were there social determinants of health that impacted care today? How? (Homelessness, low income, unemployed, alcoholism, drug addiction, transportation, low edu. Level, literacy, decrease access to med. care, prison, rehab)? @ -No Was there de-escalation of care discussed even if they declined (Discuss DNR or withdrawal of care, Hospice)? DNR status @ -No What co-morbidities impacted this encounter? (DM, HTN, Smoking, COPD, CAD, Cancer, CVA, ARF, Chemo, Hep., AIDS, mental health diagnosis, sleep apnea, morb id obesity)? @ -None Was patient admitted / discharged? Hospital course, mention meds given and rout e, prescriptions, significant lab abnormalities, going to OR and other pertinent info. @ -Admitted patient found to have increasing weakness, COPD exacerbation patient started on Solu-Medrol, DuoNeb treatments, antibiotics with pulmonary consult Undiagnosed new problem with uncertain prognosis? @ -No Drug Therapy requiring intensive monitoring for toxicity (Heparin, Nitro, Insulin, Cardizem)? @ -No Were any procedures done? @ -No Diagnosis/symptom? @ -COPD exacerbation Acute, or Chronic, or Acute on Chronic? @ -Acute Uncomplicated (without systemic symptoms) or Complicated (systemic symptoms)? @ -Complicated Side effects of treatment? @ -No Exacerbation, Progression, or Severe Exacerbation? @ -Exacerbation Poses a threat to life or bodily function? How? (Chest pain, [place], [place], pneumonia, PE, COPD, DKA, ARF, appy, cholecystitis, CVA, Diverticulitis, Homicidal, Suicidal, threat to staff... and all critical care pts) @ -Yes COPD possible respiratory failure - Lab Data Result diagrams: 10/13/23 06:24 10/13/23 06:24 Lab Results 10/13/23 10/13/23 10/13/23 Range/Units 06:24 06: 06:24 WBC 7.0 (3.8-10.6) k/uL RBC 4.27 (3.80-5.40) m/uL Hgb 12.5 (11.4-16.0) gm/dL Hct 39.1 (34.0-46.0) % MCV 91.7 (80.0-100.0) fL MCH 29.3 (25.0-35.0) pg MCHC 32.0 (31.0-37.0) g/dL RDW 13.9 (11.5-15.5) % Plt Count 261 (150-450) k/uL MPV 7.4 Neutrophils % 56 % Lymphocytes % 29 % Monocytes % 7 % Eosinophils % 4 % Basophils % 1 % Neutrophils # 3.9 (1.3-7.7) k/uL Lymphocytes # 2.0 (1.0-4.8) k/uL Monocytes # 0.5 (0-1.0) k/uL Eosinophils # 0.3 (0-0.7) k/uL Basophils # 0.0 (0-0.2) k/uL PT 10.6 (10.0-12.5) sec INR 1.0 (<1.2) APTT 20.5 L (22.0-30.0) sec Sodium 138 (137-145) mmol/L Potassium 3.8 (3.5-5.1) mmol/L Chloride 108 H (98-107) mmol/L Carbon Dioxide 25 (22-30) mmol/L Anion Gap 5 mmol/L BUN 14 (7-17) mg/dL Creatinine 0.76 (0.52-1.04) mg/dL Est GFR (CKD-EPI)AfAm 84 (>60 ml/min/1.73 sqM) Est GFR (CKD-EPI)NonAf 73 (>60 ml/min/1.73 sqM) Glucose 103 H (74-99) mg/dL Plasma Lactic Acid Osmel (0.7-2.0) mmol/L Calcium 8.9 (8.4-10.2) mg/dL Magnesium 1.9 (1.6-2.3) mg/dL Total Bilirubin 0.8 (0.2-1.3) mg/dL AST 18 (14-36) U/L ALT 10 (4-34) U/L Alkaline Phosphatase 96 (38-126) U/L Troponin I (0.000-0.034) ng/mL NT-Pro-B Natriuret Pep 47 pg/mL Total Protein 5.7 L (6.3-8.2) g/dL Albumin 3.6 (3.5-5.0) g/dL Influenza Type A (PCR) (Not Detectd) Influenza Type B (PCR) (Not Detectd) RSV (PCR) (Not Detectd) SARS-CoV-2 (PCR) (Not Detectd) 10/13/23 10/13/23 10/13/23 Range/Units 06:24 06:24 06:32 WBC (3.8-10.6) k/uL RBC (3.80-5.40) m/uL Hgb (11.4-16.0) gm/dL Hct (34.0-46.0) % MCV (80.0-100.0) fL MCH (25.0-35.0) pg MCHC (31.0-37.0) g/dL RDW (11.5-15.5) % Plt Count (150-450) k/uL MPV Neutrophils % % Lymphocytes % % Monocytes % % Eosinophils % % Basophils % % Neutrophils # (1.3-7.7) k/uL Lymphocytes # (1.0-4.8) k/uL Monocytes # (0-1.0) k/uL Eosinophils # (0-0.7) k/uL Basophils # (0-0.2) k/uL PT (10.0-12.5) sec INR (<1.2) APTT (22.0-30.0) sec Sodium (137-145) mmol/L Potassium (3.5-5.1) mmol/L Chloride (98-107) mmol/L Carbon Dioxide (22-30) mmol/L Anion Gap mmol/L BUN (7-17) mg/dL Creatinine (0.52-1.04) mg/dL Est GFR (CKD-EPI)AfAm (>60 ml/min/1.73 sqM) Est GFR (CKD-EPI)NonAf (>60 ml/min/1.73 sqM) Glucose (74-99) mg/dL Plasma Lactic Acid Osmel 0.9 (0.7-2.0) mmol/L Calcium (8.4-10.2) mg/dL Magnesium (1.6-2.3) mg/dL Total Bilirubin (0.2-1.3) mg/dL AST (14-36) U/L ALT (4-34) U/L Alkaline Phosphatase (38-126) U/L Troponin I <0.012 (0.000-0.034) ng/mL NT-Pro-B Natriuret Pep pg/mL Total Protein (6.3-8.2) g/dL Albumin (3.5-5.0) g/dL Influenza Type A (PCR) Not Detected (Not Detectd) Influenza Type B (PCR) Not Detected (Not Detectd) RSV (PCR) Not Detected (Not Detectd) SARS-CoV-2 (PCR) Not Detected (Not Detectd) Disposition Clinical Impression: Acute exacerbation of chronic obstructive airways disease, Weakness Disposition: ADMITTED IP TO THIS HOSP Condition: Fair Time of Disposition: 10:19
[2023-10-13 06:39] LABS: Basophils % (A) 1 %; Eosinophils # (A) 0.3 k/uL (0-0.7); Eosinophils % (A) 4 %; HCT 39.1 % (34.0-46.0); HGB 12.5 gm/dL (11.4-16.0); Lymphocytes % (A) 29 %; MCH 29.3 pg (25.0-35.0); MCV 91.7 fL (80.0-100.0); Mean Platelet Volume 7.4; Monocytes # (A) 0.5 k/uL (0-1.0); Monocytes % (A) 7 %; Neutrophils # (A) 3.9 k/uL (1.3-7.7); Neutrophils % (A) 56 %; Platelet Count 261 k/uL (150-450); RBC 4.27 m/uL (3.80-5.40); RDW 13.9 % (11.5-15.5)
[2023-10-13 06:54] LABS: ALT 10 U/L (4-34); AST 18 U/L (14-36); African American GFR (CKD) 84 (>60 ml/min/1.73 sqM); Albumin 3.6 g/dL (3.5-5.0); Alkaline Phosphatase 96 U/L (38-126); Anion Gap 5 mmol/L; Blood Urea Nitrogen 14 mg/dL (7-17); Calcium 8.9 mg/dL (8.4-10.2); Carbon Dioxide 25 mmol/L (22-30); Chloride 108 mmol/L (98-107); Glucose 103 mg/dL (74-99); Magnesium 1.9 mg/dL (1.6-2.3); Non-African American GFR(CKD) 73 (>60 ml/min/1.73 sqM); Potassium 3.8 mmol/L (3.5-5.1); Sodium 138 mmol/L (137-145); Total Bilirubin 0.8 mg/dL (0.2-1.3); Total Protein 5.7 g/dL (6.3-8.2)
[2023-10-13 07:00] LABS: Prothrombin Time 10.6 sec (10.0-12.5)
[2023-10-13 07:01] LABS: NT-Pro-B-Type Natriuretic Pept 47 pg/mL
[2023-10-13 07:57] LABS: Partial Thromboplastin Time 20.5 sec (22.0-30.0)
--- NOTE | 2023-10-13 10:19 | XR ---
EXAMINATION TYPE: XR chest 2V DATE OF EXAM: 10/13/2023 6:54 AM CLINICAL INDICATION:Female, 83 years old with history of difficulty breathing; COMPARISON: Chest radiographs from 04/22/2023 TECHNIQUE: XR chest 2V Frontal and lateral views of the chest. FINDINGS: Rotated exam Lungs/Pleura: Prominent interstitial lung markings are seen scattered throughout the lungs with laureen ening of the diaphragm and increased lucency of the lung apices. No evidence of focal consolidation, pneumothorax or pleural effusion. Pulmonary vascularity: Unremarkable. Heart/mediastinum: Cardiomediastinal silhouette is unremarkable. Musculoskeletal: No acute osseous pathology. IMPRESSION: Rotated exam, Chronic changes without acute pulmonary process. No significant change from prior.
[2023-10-13] MEDS ORDERED: NALOXONE 0.4 MG/ML 1 ML VIAL IVP PRN (10:20)
[2023-10-13] MEDS ORDERED: IPRATROPIUM-ALBUTEROL 3 ML NEB INHALATION PRN (10:20)
[2023-10-13] MEDS: methylPREDNISolone SOD SUCCI 125 MG/2 ML VIAL IV SCH (11:08)
[2023-10-13] MEDS: DOXYCYCLINE 100 MG CAP PO SCH (11:09)
[2023-10-13] MEDS: IPRATROPIUM-ALBUTEROL 3 ML NEB INHALATION SCH (12:16)
[2023-10-13] MEDS ORDERED: ALPRAZolam 0.5 MG TAB PO PRN (13:47)
[2023-10-13] MEDS ORDERED: traMADol 50 MG TAB PO PRN (13:47)
--- NOTE | 2023-10-13 13:54 | P.HPIM ---
History of Present Illness H&P Date: 10/13/23 83 year old F with PMH of COPD on 5L home O2, anxiety, dementia, atrial fibrillation, GERD who presents to the ED for SOB. She reports progressively worsening breathing for the last 2 weeks. She reports a chronic cough productive of clear and yellow sputum. She reports severe anxiety. She denies any chest pain. She lives at home with her son. In the ED she underwent extensive evaluation. BP 119/72, HR 75, RR 20, T 98.2F, 99% on 5L NC. CBC, Coag panel, CMP done significant for APTT 20.5, Cl 108, glu 103, total protein 5.7. Lactic acid 0.9. Mag 1.9. Troponin < 0.012. Flu, COVID, RSV negative. CXR no acute findings. EKG atrial fibrillation. Patient is admitted for COPD exacerbation. General: anxious, SOB, appears at stated age Derm: warm, dry Head: atraumatic, normocephalic, symmetric Eyes: EOMI, no lid lag, anicteric sclera Mouth: no lip lesion, mucus membranes moist Cardiovascular: S1S2 tachy, no murmur Lungs: Expiratory wheezing bilateral, no rhonchi, no rales , no accessory muscle use Abdominal: soft, nontender to palpation, no guarding, no appreciable organomegaly Ext: no gross muscle atrophy, no edema, no contractures Neuro: generalized tremors with no focal neuro deficits Psych: Anxious Based on my assessment of this patient, this patient meets a high complexity level of care. Acute on chronic hypoxic respiratory failure, likely due to acute COPD exacerbation: DuoNeb QID scheduled and PRN for SOB/wheezing. Symbicort 2 puff BID. SoluMedrol 60 mg IV Q6. Telemetry monitoring. Pulmonary on board. Smoker: Nicotine patch offered. Anxiety: Xanax 0.5 mg PO BID PRN. Dementia: Memantine 10 mg PO QD> Atrial fibrillation: Rate controlled. Previously on Eliquis 2.5 mg PO BID which will be restarted. GERD: Omeprazole 40 mg PO QD. CODE STATUS: FULL CODE DVT Prophylaxis: Eliquis GI Prophylaxis: Protonix PO Designated medical POA if patient is not able to make medical decisions for themselves: I have reviewed the following telesales consultant notes: ED note. I have reviewed the results of the following tests: As above. I have ordered the following tests: As above. I have discussed the care of this patient with the following independent historian: DIOGENES. I have independently interpreted the following test below: EKG. I have discussed the management of this patient with the following physician: Past Medical History Past Medical History: Atrial Fibrillation, Asthma, COPD, CVA/TIA, Eye Disorder, GERD/Reflux, Hyperlipidemia, Pneumonia Additional Past Medical History / Comment(s): Chronic atrial fibrillation per PMH but pt has no recollection of this, bronchiectasis, essential tremors, previous TIA, chronic lumbar back pain, past 6 months R shoulder/cervical pain, balance difficulty with falls, occasional low urinary output and uses lasix prn for this, bilateral varicose veins, dysphagia-able to take pills one at a time with water, small hiatal hernia, restless leg syndrome, seasonal ALLERGIES, History of Any Multi-Drug Resistant Organisms: MRSA Date of last positivie culture/infection: 03/22/23 MDRO Source:: Left Heel Past Surgical History: Hysterectomy Additional Past Surgical History / Comment(s): 11/27/15 EGD with bx, bilateral cataracts removed with lens implants, colonoscopy with 1 benign polypectomy. Past Anesthesia/Blood Transfusion Reactions: No Reported Reaction Past Psychological History: Anxiety, Depression Smoking Status: Current some day smoker Past Alcohol Use History: None Reported Past Drug Use History: None Reported - Past Family History Father Family Medical History: Cancer Additional Family Medical History / Comment(s): Pt thinks father might have from stomach cancer. She was 2 yrs old when he . Sister(s) Family Medical History: Cancer Additional Family Medical History / Comment(s): Half sister with brain cancer. Mother Family Medical History: Dementia Additional Family Medical History / Comment(s): Mother had gallstones and a partial thyroidectomy for noncancerous reasons. Medications and Allergies Home Medications Medication Instructions Recorded Confirmed Type Omeprazole 40 mg PO DAILY 08/24/17 10/13/23 History FLUoxetine HCL [PROzac] 40 mg PO DAILY 05/21/21 10/13/23 History busPIRone HCl [Buspar] 5 mg PO BID 10/30/21 10/13/23 History Albuterol Inhaler [Ventolin Hfa 2 puff INHALATION RT-Q4H PRN #1 07/01/22 10/13/23 Rx Inhaler] each Albuterol Nebulized [Ventolin 2.5 mg INHALATION RT-QID 07/27/22 10/13/23 History Nebulized] Fluticasone/Umeclidin/Vilanter 1 puff INHALATION RT-DAILY 11/14/22 10/13/23 History [Trelegy Ellipta 100-62.5-25] ALPRAZolam [Xanax] 0.5 mg PO BID PRN #6 tab 01/04/23 10/13/23 Rx Memantine [Namenda] 10 mg PO DAILY 04/22/23 10/13/23 History traMADol HCl [Ultram] 50 mg PO BID PRN 04/22/23 10/13/23 History Allergies Allergy/AdvReac Type Severity Reaction Status Date / Time budesonide [From Symbicort] Allergy Unknown Verified 10/13/23 12:18 formoterol [From Symbicort] Allergy Unknown Verified 10/13/23 12:18 gabapentin Allergy Unknown Verified 10/13/23 12:18 ibuprofen Allergy Unknown Verified 10/13/23 12:18 Iodinated Contrast Media Allergy Unknown Verified 10/13/23 12:18 [Iodinated Contrast- Oral and IV Dye] iodine Allergy Rash/Hives Verified 10/13/23 12:18 Sulfa (Sulfonamide Allergy Rash/Hives Verified 10/13/23 12:18 Antibiotics) topiramate [From Topamax] Allergy Unknown Verified 10/13/23 12:18 lorazepam [From Ativan] AdvReac Hallucinati Verified 10/13/23 12:18 ons prednisone AdvReac dizziness Verified 10/13/23 12:18 zolpidem tartrate AdvReac Hallucinati Verified 10/13/23 12:18 [From Ambien] ons Physical Exam Vitals: Vital Signs Temp Pulse Resp BP Pulse Ox 10/13/23 12:54 20 10/13/23 12:25 77 10/13/23 12:20 97 10/13/23 12:16 76 10/13/23 10:00 80 17 135/79 97 10/13/23 07:24 72 17 112/72 98 10/13/23 06:16 98.2 F 75 20 119/72 99 Intake and Output 10/12/23 10/13/23 10/13/23 22:59 06:59 14:59 Other: Weight 49.895 kg Results CBC & Chem 7: 10/13/23 06:24 10/13/23 06:24 Labs: Abnormal Lab Results - Last 24 Hours (Table) 10/13/23 10/13/23 Range/Units 06:24 06:24 APTT 20.5 L (22.0-30.0) sec Chloride 108 H (98-107) mmol/L Glucose 103 H (74-99) mg/dL Total Protein 5.7 L (6.3-8.2) g/dL
--- NOTE | 2023-10-13 15:01 | P.CNPUL ---
History of Present Illness Consult date: 10/13/23 Requesting physician: Alfonso Smith Reason for consult: dyspnea, cough Chief complaint: Shortness of breath, cough, congestion History of present illness: This is an 83-year-old female patient with a known history of atrial fibrillation anticoagulated with Eliquis, oxygen dependent COPD, CVA/TIA, gastroesophageal reflux disease, hyperlipidemia, chronic and ongoing tobacco dependence, essential tremors. She was brought into the emergency room early this morning with increasing shortness of breath, cough and congestion. She is normally on oxygen at 5 L/min per nasal cannula at home. She has multiple allergies including to Symbicort and prednisone. Chest x-ray reveals chronic changes but no acute pulmonary process. White count 7.0. Hemoglobin 12.5. Platelets 261. Sodium 138. Potassium 3.8. Bicarb 25. BUN 14. Creatinine 0.76. Glucose 103. proBNP 47. Troponin negative x 1. Viral screen negative. She is seen today in consultation in the emergency department. She is currently sitting up on the stretcher. Awake and alert in no acute distress. Maintaining O2 saturations in the high 90s on 5 L/min per nasal cannula. She is somewhat of a poor historian. She states she is comfortable at rest. She has a loose nonproductive cough. No fever or chills. She is quite tremorous and anxious. Review of Systems REVIEW OF SYSTEMS: CONSTITUTIONAL: Denies any recent significant weight loss or weight gain. EYES: Denies change in vision. EARS, NOSE, MOUTH, THROAT: Denies headaches, denies sore throat. CARDIOVASCULAR: Denies chest pain, palpitations or syncopal episodes. RESPIRATORY: Positive for shortness of breath, cough, congestion no hemoptysis. GASTROINTESTINAL: Denies change in appetite, denies abdominal pain GENITOURINARY: Denies hematuria, denies infections. MUSKULOSKELETAL: Denies pain, denies swelling. INTEGUMENTARY: Denies rash, denies eczema. NEUROLOGICAL: Denies recent memory loss, no recent seizure activity. PSYCHIATRIC: Denies anxiety, denies depression. HEMATOLOGIC/LYMPHATIC: Denies anemia, denies enlarged lymph nodes. Past Medical History Past Medical History: Atrial Fibrillation, Asthma, COPD, CVA/TIA, Eye Disorder, GERD/Reflux, Hyperlipidemia, Pneumonia Additional Past Medical History / Comment(s): Chronic atrial fibrillation per PMH but pt has no recollection of this, bronchiectasis, essential tremors, previous TIA, chronic lumbar back pain, past 6 months R shoulder/cervical pain, balance difficulty with falls, occasional low urinary output and uses lasix prn for this, bilateral varicose veins, dysphagia-able to take pills one at a time with water, small hiatal hernia, restless leg syndrome, seasonal ALLERGIES, History of Any Multi-Drug Resistant Organisms: MRSA Date of last positivie culture/infection: 03/22/23 MDRO Source:: Left Heel Past Surgical History: Hysterectomy Additional Past Surgical History / Comment(s): 11/27/15 EGD with bx, bilateral cataracts removed with lens implants, colonoscopy with 1 benign polypectomy. Past Anesthesia/Blood Transfusion Reactions: No Reported Reaction Past Psychological History: Anxiety, Depression Smoking Status: Current some day smoker Past Alcohol Use History: None Reported Past Drug Use History: None Reported - Past Family History Father Family Medical History: Cancer Additional Family Medical History / Comment(s): Pt thinks father might have from stomach cancer. She was 2 yrs old when he . Sister(s) Family Medical History: Cancer Additional Family Medical History / Comment(s): Half sister with brain cancer. Mother Family Medical History: Dementia Additional Family Medical History / Comment(s): Mother had gallstones and a partial thyroidectomy for noncancerous reasons. Medications and Allergies Home Medications Medication Instructions Recorded Confirmed Type Omeprazole 40 mg PO DAILY 08/24/17 10/13/23 History FLUoxetine HCL [PROzac] 40 mg PO DAILY 05/21/21 10/13/23 History busPIRone HCl [Buspar] 5 mg PO BID 10/30/21 10/13/23 History Albuterol Inhaler [Ventolin Hfa 2 puff INHALATION RT-Q4H PRN #1 07/01/22 10/13/23 Rx Inhaler] each Albuterol Nebulized [Ventolin 2.5 mg INHALATION RT-QID 07/27/22 10/13/23 History Nebulized] Fluticasone/Umeclidin/Vilanter 1 puff INHALATION RT-DAILY 11/14/22 10/13/23 History [Trelegy Ellipta 100-62.5-25] ALPRAZolam [Xanax] 0.5 mg PO BID PRN #6 tab 01/04/23 10/13/23 Rx Memantine [Namenda] 10 mg PO DAILY 04/22/23 10/13/23 History traMADol HCl [Ultram] 50 mg PO BID PRN 04/22/23 10/13/23 History Allergies Allergy/AdvReac Type Severity Reaction Status Date / Time budesonide [From Symbicort] Allergy Unknown Verified 10/13/23 12:18 formoterol [From Symbicort] Allergy Unknown Verified 10/13/23 12:18 gabapentin Allergy Unknown Verified 10/13/23 12:18 ibuprofen Allergy Unknown Verified 10/13/23 12:18 Iodinated Contrast Media Allergy Unknown Verified 10/13/23 12:18 [Iodinated Contrast- Oral and IV Dye] iodine Allergy Rash/Hives Verified 10/13/23 12:18 Sulfa (Sulfonamide Allergy Rash/Hives Verified 10/13/23 12:18 Antibiotics) topiramate [From Topamax] Allergy Unknown Verified 10/13/23 12:18 lorazepam [From Ativan] AdvReac Hallucinati Verified 10/13/23 12:18 ons prednisone AdvReac dizziness Verified 10/13/23 12:18 zolpidem tartrate AdvReac Hallucinati Verified 10/13/23 12:18 [From Ambien] ons Physical Exam Vitals: Vital Signs Temp Pulse Resp BP Pulse Ox 10/13/23 12:54 20 10/13/23 12:25 77 10/13/23 12:20 97 10/13/23 12:16 76 10/13/23 10:00 80 17 135/79 97 10/13/23 07:24 72 17 112/72 98 10/13/23 06:16 98.2 F 75 20 119/72 99 Intake and Output 10/12/23 10/13/23 10/13/23 22:59 06:59 14:59 Other: Weight 49.895 kg GENERAL EXAM: Alert, pleasant 83-year-old female, essential tremors, poor historian, on 5 L nasal cannula, fairly comfortable in no apparent distress. HEAD: Normocephalic. EYES: Normal reaction of pupils, equal size. NOSE: Clear with pink turbinates. THROAT: No erythema or exudates. NECK: No masses, no JVD. CHEST: No chest wall deformity. LUNGS: Equal air entry with no crackles, wheeze, rhonchi or dullness. Diminished. CVS: S1 and S2 normal with no audible murmur, regular rhythm. ABDOMEN: No hepatosplenomegaly, normal bowel sounds, no guarding or rigidity. SPINE: No scoliosis or deformity SKIN: No rashes CENTRAL NERVOUS SYSTEM: Essential tremors. No focal deficits, tone is normal in all 4 extremities. EXTREMITIES: There is no peripheral edema. No clubbing, no cyanosis. Peripheral pulses are intact. Results - Laboratory Findings CBC and BMP: 10/13/23 06:24 10/13/23 06:24 PT/INR, D-dimer PT 10.6 sec (10.0-12.5) 10/13/23: INR 1.0 (<1.2) 10/13/23 06:24 Abnormal lab findings: Abnormal Labs 10/13/23 10/13/23 06:24 06:24 APTT 20.5 L Chloride 108 H Glucose 103 H Total Protein 5.7 L - Diagnostic Findings Chest x-ray: image reviewed Assessment and Plan Assessment: Acute on chronic hypoxemic respiratory failure secondary to an acute exacerbation of COPD. Chest x-ray shows no acute process. History of oxygen dependent chronic obstructive pulmonary disease History of chronic tobacco dependence Essential tremors Chronic atrial fibrillation, anticoagulated with Eliquis Gastroesophageal reflux disease History of anxiety/depression Hyperlipidemia Poor historian Plan: The patient was seen and evaluated Chest x-ray, labs and medications reviewed History of multiple allergies Continue DuoNeb inhalations Continue Solu-Medrol Titrate the FiO2 as tolerated Xanax for anxiety Empiric antibiotics in the form of Vibramycin Anticoagulated with Eliquis Continue Protonix We will continue to follow and make further recommendations based on her clinical status I have personally seen and examined the patient, performed the documentation and the assessment and plan as written. Number of minutes spent on the visit: 20.
[2023-10-13 19:30] LABS: Glucose,Whole Blood 114 mg/dL (70-110)
[2023-10-13] MEDS ORDERED: SYMBICORT 160-4.5 MCG INHALER INHALATION SCH (20:00)
[2023-10-13] MEDS: busPIRone HCl 5 MG TAB PO SCH (20:40)
[2023-10-13] MEDS: APIXABAN 2.5 MG TABLET PO SCH (20:41)
[2023-10-13] MEDS: methylPREDNISolone SOD SUCCI 40 MG/ML 1 ML VIAL IV SCH (20:41)
[2023-10-14] MEDS: PANTOPRAZOLE 40 MG TABLET PO SCH (07:47)
[2023-10-14] MEDS: FLUoxetine HCL 20 MG CAP PO SCH (10:12)
[2023-10-14] MEDS: MEMANTINE 10 MG TAB PO SCH (10:12)
[2023-10-14] MEDS: ALPRAZolam 0.5 MG TAB PO SCH (10:12)
--- NOTE | 2023-10-14 10:58 | P.PN ---
Subjective Progress Note Date: 10/14/23 This is an 83-year-old female patient with a known history of atrial fibrillation anticoagulated with Eliquis, oxygen dependent COPD, CVA/TIA, gastroesophageal reflux disease, hyperlipidemia, chronic and ongoing tobacco dependence, essential tremors. She was brought into the emergency room early this morning with increasing shortness of breath, cough and congestion. She is normally on oxygen at 5 L/min per nasal cannula at home. She has multiple allergies including to Symbicort and prednisone. Chest x-ray reveals chronic changes but no acute pulmonary process. White count 7.0. Hemoglobin 12.5. Platelets 261. Sodium 138. Potassium 3.8. Bicarb 25. BUN 14. Creatinine 0.76. Glucose 103. proBNP 47. Troponin negative x 1. Viral screen negative. She is seen today in consultation in the emergency department. She is currently sitting up on the stretcher. Awake and alert in no acute distress. Maintaining O2 saturations in the high 90s on 5 L/min per nasal cannula. She is somewhat of a poor historian. She states she is comfortable at rest. She has a loose nonproductive cough. No fever or chills. She is quite tremorous and anxious. The patient is seen today October 14, 2023 in follow-up in the emergency department. She is awake and alert in no acute distress. She is maintaining O2 saturations in the 90s on 3 L/min per nasal cannula. She has been afebrile. Hemodynamically stable. She remains quite tremorous and anxious. She is continued on DuoNeb ventilations, Solu-Medrol. Anticoagulated with Eliquis. Empiric antibiotics in the form of Vibramycin. Objective - Vital Signs Vital signs: Vital Signs Temp 98.0 F 10/13/23 15:00 Pulse 78 10/14/23 07:00 Resp 16 10/14/23 07:00 BP 108/67 10/14/23 07:00 Pulse Ox 97 10/14/23 08:24 FiO2 - Exam GENERAL EXAM: Alert, anxious 83-year-old female, essential tremors, poor historian, on 3 L nasal cannula, fairly comfortable in no apparent distress. HEAD: Normocephalic. EYES: Normal reaction of pupils, equal size. NOSE: Clear with pink turbinates. THROAT: No erythema or exudates. NECK: No masses, no JVD. CHEST: No chest wall deformity. LUNGS: Equal air entry with no crackles, wheeze, rhonchi or dullness. Diminished. CVS: S1 and S2 normal with no audible murmur, regular rhythm. ABDOMEN: No hepatosplenomegaly, normal bowel sounds, no guarding or rigidity. SPINE: No scoliosis or deformity SKIN: No rashes CENTRAL NERVOUS SYSTEM: Essential tremors. No focal deficits, tone is normal in all 4 extremities. EXTREMITIES: There is no peripheral edema. No clubbing, no cyanosis. Peripheral pulses are intact. - Labs CBC & Chem 7: 10/13/23 06:24 10/13/23 06:24 Labs: Abnormal Lab Results - Last 24 Hours (Table) 10/13/23 Range/Units 19:29 POC Glucose (mg/dL) 114 H (70-110) mg/dL Assessment and Plan Assessment: Acute on chronic hypoxemic respiratory failure secondary to an acute exacerbation of COPD. Chest x-ray shows no acute process. History of oxygen dependent chronic obstructive pulmonary disease History of chronic tobacco dependence Essential tremors Chronic atrial fibrillation, anticoagulated with Eliquis Gastroesophageal reflux disease History of anxiety/depression Hyperlipidemia Poor historian Plan: The patient was seen and evaluated Medications reviewed Continue bronchodilators and steroids Titrate the FiO2 as tolerated Xanax for anxiety We will continue to follow I have personally seen and examined the patient, performed the documentation and the assessment and plan as written. Number of minutes spent on the visit: 10.
--- NOTE | 2023-10-14 13:00 | P.PN ---
Subjective Progress Note Date: 10/14/23 83 year old F with PMH of COPD on 5L home O2, anxiety, dementia, atrial fibrillation, GERD who presents to the ED for SOB. She reports progressively worsening breathing for the last 2 weeks. She reports a chronic cough productive of clear and yellow sputum. She reports severe anxiety. She denies any chest pain. She lives at home with her son. In the ED she underwent extensive evaluation. BP 119/72, HR 75, RR 20, T 98.2F, 99% on 5L NC. CBC, Coag panel, CMP done significant for APTT 20.5, Cl 108, glu 1 03, total protein 5.7. Lactic acid 0.9. Mag 1.9. Troponin < 0.012. Flu, COVID, RSV negative. CXR no acute findings. EKG atrial fibrillation. Patient is started on bronchodilators and SoluMedrol and admitted for COPD exacerbation with Pulmonary consult. 10/13 Patient was seen and examined. States breathing better. Currently on 3L NC. Discussed with nursing, patient is confused. Appears anxious. Pulmonary recommends continued treatment. General: anxious, SOB, appears at stated age Derm: warm, dry Head: atraumatic, normocephalic, symmetric Eyes: EOMI, no lid lag, anicteric sclera Mouth: no lip lesion, mucus membranes moist Cardiovascular: S1S2 tachy, no murmur Lungs: Expiratory wheezing bilateral, no rhonchi, no rales , no accessory muscle use Abdominal: soft, nontender to palpation, no guarding, no appreciable organomegaly Ext: no gross muscle atrophy, no edema, no contractures Neuro: generalized tremors with no focal neuro deficits Psych: Anxious Based on my assessment of this patient, this patient meets a high complexity level of care. Acute on chronic hypoxic respiratory failure, likely due to acute COPD exacerbation: DuoNeb QID scheduled and PRN for SOB/wheezing. Symbicort 2 puff BID. SoluMedrol 60 mg IV Q6. Telemetry monitoring. Pulmonary on board. Smoker: Nicotine patch offered. Anxiety: Xanax 0.5 mg PO BID PRN. Dementia: Memantine 10 mg PO QD. Atrial fibrillation: Rate controlled. Previously on Eliquis 2.5 mg PO BID which will be restarted. GERD: Omeprazole 40 mg PO QD. CODE STATUS: FULL CODE DVT Prophylaxis: Eliquis GI Prophylaxis: Protonix PO Designated medical POA if patient is not able to make medical decisions for themselves: I have reviewed the following tax consultant notes: Pulmonary note. I have reviewed the results of the following tests: I have ordered the following tests: I have discussed the care of this patient with the following independent historian: DIOGENES. I have independently interpreted the following test below: I have discussed the management of this patient with the following physician: Objective - Vital Signs Vital signs: Vital Signs Temp 98.0 F 10/13/23 15:00 Pulse 79 10/14/23 12:53 Resp 16 10/14/23 07:00 BP 108/67 10/14/23 07:00 Pulse Ox 97 10/14/23 08:24 FiO2 - Labs CBC & Chem 7: 10/13/23 06:24 10/13/23 06:24 Labs: Abnormal Lab Results - Last 24 Hours (Table) 10/13/23 Range/Units 19:29 POC Glucose (mg/dL) 114 H (70-110) mg/dL
--- NOTE | 2023-10-15 12:02 | P.PN ---
Subjective Progress Note Date: 10/15/23 This is an 83-year-old female patient with a known history of atrial fibrillation anticoagulated with Eliquis, oxygen dependent COPD, CVA/TIA, gastroesophageal reflux disease, hyperlipidemia, chronic and ongoing tobacco dependence, essential tremors. She was brought into the emergency room early this morning with increasing shortness of breath, cough and congestion. She is normally on oxygen at 5 L/min per nasal cannula at home. She has multiple allergies including to Symbicort and prednisone. Chest x-ray reveals chronic changes but no acute pulmonary process. White count 7.0. Hemoglobin 12.5. Platelets 261. Sodium 138. Potassium 3.8. Bicarb 25. BUN 14. Creatinine 0.76. Glucose 103. proBNP 47. Troponin negative x 1. Viral screen negative. She is seen today in consultation in the emergency department. She is currently sitting up on the stretcher. Awake and alert in no acute distress. Maintaining O2 saturations in the high 90s on 5 L/min per nasal cannula. She is somewhat of a poor historian. She states she is comfortable at rest. She has a loose nonproductive cough. No fever or chills. She is quite tremorous and anxious. The patient is seen today October 14, 2023 in follow-up in the emergency department. She is awake and alert in no acute distress. She is maintaining O2 saturations in the 90s on 3 L/min per nasal cannula. She has been afebrile. Hemodynamically stable. She remains quite tremorous and anxious. She is continued on DuoNeb ventilations, Solu-Medrol. Anticoagulated with Eliquis. Empiric antibiotics in the form of Vibramycin. Patient is seen today October 15, 2023 in follow-up on the regular medical floor. She is awake and alert in no acute distress. Sitting up in bed. Maintaining O2 saturations in the 90s on 2 L/min per nasal cannula. She is less anxious. Less tremorous today. She remains on bronchodilators and steroids. Anticoagulated with Eliquis. Empiric antibiotics in the form of Vibramycin. She is tolerating Xanax. Objective - Vital Signs Vital signs: Vital Signs Temp 98.4 F 10/15/23 06:57 Pulse 80 10/15/23 08:22 Resp 18 10/15/23 08:04 BP 104/54 10/15/23 06:57 Pulse Ox 97 10/15/23 06:57 FiO2 Intake & Output 10/14/23 10/15/23 10/15/23 18:59 06:59 18:59 Weight 49.895 kg Other: Voiding Method Toilet # Voids 2 - Exam GENERAL EXAM: Alert, 83-year-old female, essential tremors, poor historian, on 2 L nasal cannula, in no apparent distress. HEAD: Normocephalic. EYES: Normal reaction of pupils, equal size. NOSE: Clear with pink turbinates. THROAT: No erythema or exudates. NECK: No masses, no JVD. CHEST: No chest wall deformity. LUNGS: Equal air entry with no crackles, wheeze, rhonchi or dullness. Diminished. CVS: S1 and S2 normal with no audible murmur, regular rhythm. ABDOMEN: No hepatosplenomegaly, normal bowel sounds, no guarding or rigidity. SPINE: No scoliosis or deformity SKIN: No rashes CENTRAL NERVOUS SYSTEM: Essential tremors. No focal deficits, tone is normal in all 4 extremities. EXTREMITIES: There is no peripheral edema. No clubbing, no cyanosis. Peripheral pulses are intact. - Labs CBC & Chem 7: 10/13/23 06:24 10/13/23 06:24 Assessment and Plan Assessment: Acute on chronic hypoxemic respiratory failure secondary to an acute exacerbation of COPD. Chest x-ray shows no acute process. History of oxygen dependent chronic obstructive pulmonary disease History of chronic tobacco dependence Essential tremors Chronic atrial fibrillation, anticoagulated with Eliquis Gastroesophageal reflux disease History of anxiety/depression Hyperlipidemia Poor historian Plan: The patient was seen and evaluated Medications reviewed Continue bronchodilators Discontinue Solu-Medrol Initiated a prednisone taper Continue Xanax for anxiety I have personally seen and examined the patient, performed the documentation and the assessment and plan as written. Number of minutes spent on the visit: 10.
--- NOTE | 2023-10-15 14:01 | P.PN ---
Subjective Progress Note Date: 10/15/23 Principal diagnosis: COPD exacerbation Ms. Gomez was seen and examined. Denies shortness of breath. Poor historian but appears to be at baseline with her dementia. Speech is very tangential. Having some slight conversational dyspnea. RN reports having significant dyspnea with ambulation. Objective - Vital Signs Vital signs: Vital Signs Temp 98.4 F 10/15/23 06:57 Pulse 80 10/15/23 08:22 Resp 18 10/15/23 08:04 BP 104/54 10/15/23 06:57 Pulse Ox 97 10/15/23 06:57 FiO2 Intake & Output 10/14/23 10/15/23 10/15/23 18:59 06:59 18:59 Weight 49.895 kg Other: Voiding Method Toilet # Voids 2 - Exam General: No acute distress Cardiovascular: Irregular, S1-S2 Lungs: Breath sounds equal, diminished without wheezing Extremities: No lower extremity edema - Labs CBC & Chem 7: 10/13/23 06:24 10/13/23 06:24 Assessment and Plan Plan: 1. COPD exacerbation Acute on chronic respiratory failure Continue with steroids. On doxycycline. Continue with scheduled and as needed breathing treatments. 2. Atrial fibrillation Rate controlled. Continue with Eliquis. Telemetry. 3. Unspecified psych disorder, anxiety, Xanax Continue with home Namenda, Xanax and BuSpar VTE prophylaxis: On Eliquis GI prophylaxis: On Protonix
[2023-10-16 08:29] VITALS: BP 114/55; RESP 17; TEMP 98.1
[2023-10-16] MEDS: predniSONE 10 MG TAB PO SCH (08:54)
--- NOTE | 2023-10-16 12:32 | P.DS ---
Providers Date of admission: 10/13/23 10:33 Expected date of discharge: 10/16/23 Attending physician: Alfonso Smith MD Consults: 10/13/23 10:20 Consult Physician Routine Consulting Provider: Steff Kent Consult Reason/Comments: copd Do you want consulting provider notified?: Yes Primary care physician: [facility] Course: Ms. Gomez is an 83-year-old lady with a medical history significant for COPD on home oxygen, anxiety, dementia and atrial fibrillation who presented with dyspnea. Chest x-ray on admission did not reveal any acute process. She was admitted and treated for COPD exacerbation. She has significant improvement on steroids. She was given doxycycline for anti-inflammatory effects. Viral panel was negative. EKG revealed atrial fibrillation which she apparently has a known history of. She is not on anticoagulation at home for unknown reasons. She was started on Eliquis by previous provider. I did call the son to confirm she does have a history of atrial fibrillation but does not take anticoagulation at home. Did discuss with son about previous bleeds or other risk factors. He is in agreement with anticoagulation. She may follow-up with her provider for further refills and further workup for atrial fibrillation. At this time, she is currently stable for discharge. She is denying any shortness of breath today. Her oxygen needs are stable. DC instructions given to the son, advised to return her to the ED if any recurrence of the shortness of breath. Discharge diagnoses 1. COPD exacerbation, improved 2. Atrial fibrillation, rate controlled 3. Dementia Discharge time greater than 30 minutes Patient Condition at Discharge: Good Plan - Discharge Summary Discharge Rx Participant: No New Discharge Prescriptions: New predniSONE 30 mg PO DAILY #18 tab Doxycycline [Vibramycin] 100 mg PO BID #3 cap Apixaban [Eliquis] 2.5 mg PO BID 30 Days #60 tab Continue Omeprazole 40 mg PO DAILY busPIRone HCl [Buspar] 5 mg PO BID Albuterol Inhaler [Ventolin Hfa Inhaler] 2 puff INHALATION RT-Q4H PRN #1 each PRN Reason: Shortness Of Breath ALPRAZolam [Xanax] 0.5 mg PO BID PRN #6 tab PRN Reason: Anxiety FLUoxetine HCL [PROzac] 40 mg PO DAILY Albuterol Nebulized [Ventolin Nebulized] 2.5 mg INHALATION RT-QID Fluticasone/Umeclidin/Vilanter [Trelegy Ellipta 100-62.5-25] 1 puff INHALATION RT-DAILY Memantine [Namenda] 10 mg PO DAILY traMADol HCl [Ultram] 50 mg PO BID PRN PRN Reason: Pain Discharge Medication List Omeprazole 40 mg PO DAILY 08/24/17 [History] FLUoxetine HCL [PROzac] 40 mg PO DAILY 05/21/21 [History] busPIRone HCl [Buspar] 5 mg PO BID 10/30/21 [History] Albuterol Inhaler [Ventolin Hfa Inhaler] 2 puff INHALATION RT-Q4H PRN #1 each 07/01/22 [Rx] Albuterol Nebulized [Ventolin Nebulized] 2.5 mg INHALATION RT-QID 07/27/22 [History] Fluticasone/Umeclidin/Vilanter [Trelegy Ellipta 100-62.5-25] 1 puff INHALATION RT-DAILY 11/14/22 [History] ALPRAZolam [Xanax] 0.5 mg PO BID PRN #6 tab 01/04/23 [Rx] Memantine [Namenda] 10 mg PO DAILY 04/22/23 [History] traMADol HCl [Ultram] 50 mg PO BID PRN 04/22/23 [History] Apixaban [Eliquis] 2.5 mg PO BID 30 Days #60 tab 10/16/23 [Rx] Doxycycline [Vibramycin] 100 mg PO BID #3 cap 10/16/23 [Rx] predniSONE 30 mg PO DAILY #18 tab 10/16/23 [Rx] Follow up Appointment(s)/Referral(s): Steff Kent MD [STAFF PHYSICIAN] - 1 Week Pablo De La Garza DO [Primary Care Provider] - 1-2 days Patient Instructions/Handouts: COPD (Chronic Obstructive Pulmonary Disease) (IP) Activity/Diet/Wound Care/Special Instructions: Please return to the ED immediately with any fevers, chills, worsening cough or shortness of breath Please continue your home medications You have 3 more doses of doxycycline to take, 100 mg tonight and 100 mg twice daily tomorrow Please take prednisone 30 mg for 3 days starting tomorrow, then 20 mg for 3 days, then 10 mg for 3 days Please follow-up with your primary care physician and a quality assurance representative within 1 week Discharge Disposition: HOME SELF-CARE
[2023-10-16 12:34] VITALS: PULSE 92
--- NOTE | 2023-10-16 15:20 | P.PN ---
Subjective Progress Note Date: 10/16/23 This is an 83-year-old female patient with a known history of atrial fibrillation anticoagulated with Eliquis, oxygen dependent COPD, CVA/TIA, gastroesophageal reflux disease, hyperlipidemia, chronic and ongoing tobacco dependence, essential tremors. She was brought into the emergency room early this morning with increasing shortness of breath, cough and congestion. She is normally on oxygen at 5 L/min per nasal cannula at home. She has multiple allergies including to Symbicort and prednisone. Chest x-ray reveals chronic changes but no acute pulmonary process. White count 7.0. Hemoglobin 12.5. Platelets 261. Sodium 138. Potassium 3.8. Bicarb 25. BUN 14. Creatinine 0.76. Glucose 103. proBNP 47. Troponin negative x 1. Viral screen negative. She is seen today in consultation in the emergency department. She is currently sitting up on the stretcher. Awake and alert in no acute distress. Maintaining O2 saturations in the high 90s on 5 L/min per nasal cannula. She is somewhat of a poor historian. She states she is comfortable at rest. She has a loose nonproductive cough. No fever or chills. She is quite tremorous and anxious. The patient is seen today October 14, 2023 in follow-up in the emergency department. She is awake and alert in no acute distress. She is maintaining O2 saturations in the 90s on 3 L/min per nasal cannula. She has been afebrile. Hemodynamically stable. She remains quite tremorous and anxious. She is continued on DuoNeb ventilations, Solu-Medrol. Anticoagulated with Eliquis. Empiric antibiotics in the form of Vibramycin. Patient is seen today October 15, 2023 in follow-up on the regular medical floor. She is awake and alert in no acute distress. Sitting up in bed. Maintaining O2 saturations in the 90s on 2 L/min per nasal cannula. She is less anxious. Less tremorous today. She remains on bronchodilators and steroids. Anticoagulated with Eliquis. Empiric antibiotics in the form of Vibramycin. She is tolerating Xanax. The patient is seen today October 16, 2023 in follow-up on the regular medical floor. She is sitting up in bed. Awake and alert in no acute distress. Less anxious. Maintaining good O2 saturations in the 90s on 2 L/min per nasal cannula. Lung sounds clear. She remains on DuoNeb inhalations, Solu-Medrol. [place] antibiotics in the form of Vibramycin. Anticoagulated with Eliquis. Objective - Vital Signs Vital signs: Vital Signs Temp 98.1 F 10/16/23 08:00 Pulse 92 10/16/23 12:34 Resp 17 10/16/23 08:00 BP 114/55 10/16/23 08:00 Pulse Ox 98 10/16/23 08:00 FiO2 Intake & Output 10/15/23 10/16/23 10/16/23 18:59 06:59 18:59 Other: Voiding Method Toilet Toilet # Voids 5 # Bowel Movements 0 - Exam GENERAL EXAM: Alert, 83-year-old female, resting comfortably in bed, on 2 L nasal cannula, in no apparent distress. HEAD: Normocephalic. EYES: Normal reaction of pupils, equal size. NOSE: Clear with pink turbinates. THROAT: No erythema or exudates. NECK: No masses, no JVD. CHEST: No chest wall deformity. LUNGS: Equal air entry with no crackles, wheeze, rhonchi or dullness. Diminished. CVS: S1 and S2 normal with no audible murmur, regular rhythm. ABDOMEN: No hepatosplenomegaly, normal bowel sounds, no guarding or rigidity. SPINE: No scoliosis or deformity SKIN: No rashes CENTRAL NERVOUS SYSTEM: Essential tremors. No focal deficits, tone is normal in all 4 extremities. EXTREMITIES: There is no peripheral edema. No clubbing, no cyanosis. Peripheral pulses are intact. - Labs CBC & Chem 7: 10/13/23 06:24 10/13/23 06:24 Assessment and Plan Assessment: Acute on chronic hypoxemic respiratory failure secondary to an acute exacerbation of COPD. Chest x-ray shows no acute process History of oxygen dependent chronic obstructive pulmonary disease History of chronic tobacco dependence Essential tremors Chronic atrial fibrillation, anticoagulated with Eliquis Gastroesophageal reflux disease History of anxiety/depression Hyperlipidemia Poor historian Plan: The patient was seen and evaluated Medications reviewed Continue bronchodilators Continue a prednisone taper For discharge from the pulmonary standpoint Follow-up in our office in 1 week I have personally seen and examined the patient, performed the documentation and the assessment and plan as written. Number of minutes spent on the visit: 10.
== END 2023-10-16 14:11 | disposition home or self-care (01) ==
LOC: EC 06:14 → 6NMEDSUR 10:33 → 4SSUR 10-14 13:55
PROVIDERS: ADMIT Student in an Organized Health Care Education/Training Program; ATTEND Student in an Organized Health Care Education/Training Program
DX: J44.1 Chronic obstructive pulmonary disease with (acute) exacerbation (principal); F41.9 Anxiety disorder, unspecified; F03.90 Unspecified dementia, unspecified severity, without behavioral disturbance, psychotic disturbance, mood disturbance, and anxiety; I48.91 Unspecified atrial fibrillation; Z99.81 Dependence on supplemental oxygen; Z96.1 Presence of intraocular lens; Z90.710 Acquired absence of both cervix and uterus; Z88.8 Allergy status to other drugs, medicaments and biological substances; Z80.8 Family history of malignant neoplasm of other organs or systems; Z79.899 Other long term (current) drug therapy; Z79.51 Long term (current) use of inhaled steroids; Z79.01 Long term (current) use of anticoagulants
CPT/HCPCS: 96376 ×3; 96374; 99285; 36415; 94640 ×7; 93005; 83880; 80053; 83605; 83735; 84484; 85025; 85610; 85730; 87636; 71046; G0378 ×5; J7512; J2919 ×4

== ENCOUNTER 2023-10-27 15:11 | Emergency (ER) | payer MEDICARE ==
--- NOTE | 2023-10-27 15:31 | ED ---
Chest Pain HPI - General Chief Complaint: Chest Pain Stated Complaint: Chest Pain Time Seen by Provider: 10/27/23 15:18 Source: patient, RN notes reviewed, old records reviewed, Caregiver Mode of arrival: ambulatory Limitations: no limitations - History of Present Illness Initial Comments: This is a 83-year-old female to ER for chest pain chest pain and abdominal pain with anxiety. Symptoms are persistent here in the hospital resolved here in the hospital, she called her son prior to arrival with the symptoms, she admits to some anxiety but the son states before he left the house today she was feeling normal MD Complaint: chest pain -: days(s) Onset: during rest, during exertion Pain Location: substernal, left chest Pain Radiation: none Severity: moderate Severity scale (1-10): 4 Consistency: constant Improves With: nothing Worsens With: nothing Context: recent illness Anginal Symptoms: nausea - Related Data Home Medications Medication Instructions Recorded Confirmed Omeprazole 40 mg PO DAILY 08/24/17 10/13/23 FLUoxetine HCL [PROzac] 40 mg PO DAILY 05/21/21 10/13/23 busPIRone HCl [Buspar] 5 mg PO BID 10/30/21 10/13/23 Albuterol Nebulized [Ventolin 2.5 mg INHALATION RT-QID 07/27/22 10/13/23 Nebulized] Fluticasone/Umeclidin/Vilanter 1 puff INHALATION RT-DAILY 11/14/22 10/13/23 [Trelegy Ellipta 100-62.5-25] Memantine [Namenda] 10 mg PO DAILY 04/22/23 10/13/23 traMADol HCl [Ultram] 50 mg PO BID PRN 04/22/23 10/13/23 Previous Rx's Medication Instructions Recorded Albuterol Inhaler [Ventolin Hfa 2 puff INHALATION RT-Q4H PRN #1 07/01/22 Inhaler] each ALPRAZolam [Xanax] 0.5 mg PO BID PRN #6 tab 01/04/23 Apixaban [Eliquis] 2.5 mg PO BID 30 Days #60 tab 10/16/23 Doxycycline [Vibramycin] 100 mg PO BID #3 cap 10/16/23 predniSONE 30 mg PO DAILY #18 tab 10/16/23 Allergies Allergy/AdvReac Type Severity Reaction Status Date / Time budesonide [From Symbicort] Allergy Unknown Verified 10/27/23 15:18 formoterol [From Symbicort] Allergy Unknown Verified 10/27/23 15:18 gabapentin Allergy Unknown Verified 10/27/23 15:18 ibuprofen Allergy Unknown Verified 10/27/23 15:18 Iodinated Contrast Media Allergy Unknown Verified 10/27/23 15:18 [Iodinated Contrast- Oral and IV Dye] iodine Allergy Rash/Hives Verified 10/27/23 15:18 Sulfa (Sulfonamide Allergy Rash/Hives Verified 10/27/23 15:18 Antibiotics) topiramate [From Topamax] Allergy Unknown Verified 10/27/23 15:18 lorazepam [From Ativan] AdvReac Hallucinati Verified 10/27/23 15:18 ons prednisone AdvReac dizziness Verified 10/27/23 15:18 zolpidem tartrate AdvReac Hallucinati Verified 10/27/23 15:18 [From Ambien] ons Review of Systems ROS Statement: Those systems with pertinent positive or pertinent negative responses have been documented in the HPI. ROS Other: All systems not noted in ROS Statement are negative. EKG Findings - EKG Comments: EKG Findings:: EKG is sinus 66 TN 143 QRS 85 QTc 420 - EKG Results: EKG: interpreted by JERONIMOD Past Medical History Past Medical History: Atrial Fibrillation, Asthma, COPD, CVA/TIA, Eye Disorder, GERD/Reflux, Hyperlipidemia, Pneumonia Additional Past Medical History / Comment(s): Chronic atrial fibrillation per PMH but pt has no recollection of this, bronchiectasis, essential tremors, previous TIA, chronic lumbar back pain, past 6 months R shoulder/cervical pain, balance difficulty with falls, occasional low urinary output and uses lasix prn for this, bilateral varicose veins, dysphagia-able to take pills one at a time with water, small hiatal hernia, restless leg syndrome, seasonal ALLERGIES, History of Any Multi-Drug Resistant Organisms: MRSA Date of last positivie culture/infection: 03/22/23 MDRO Source:: Left Heel Past Surgical History: Hysterectomy Additional Past Surgical History / Comment(s): 11/27/15 EGD with bx, bilateral cataracts removed with lens implants, colonoscopy with 1 benign polypectomy. Past Anesthesia/Blood Transfusion Reactions: No Reported Reaction Past Psychological History: Anxiety, Depression Smoking Status: Current some day smoker Past Alcohol Use History: None Reported Past Drug Use History: None Reported - Past Family History Father Family Medical History: Cancer Additional Family Medical History / Comment(s): Pt thinks father might have from stomach cancer. She was 2 yrs old when he . Sister(s) Family Medical History: Cancer Additional Family Medical History / Comment(s): Half sister with brain cancer. Mother Family Medical History: Dementia Additional Family Medical History / Comment(s): Mother had gallstones and a partial thyroidectomy for noncancerous reasons. General Exam Limitations: no limitations General appearance: alert, in no apparent distress Head exam: Present: atraumatic, normocephalic, normal inspection Eye exam: Present: normal appearance, PERRL, EOMI. Absent: scleral icterus, conjunctival injection, periorbital swelling ENT exam: Present: normal exam, mucous membranes moist Neck exam: Present: normal inspection. Absent: tenderness, meningismus, lymphadenopathy Respiratory exam: Present: normal lung sounds bilaterally. Absent: respiratory distress, wheezes, rales, rhonchi, stridor Cardiovascular Exam: Present: regular rate, normal rhythm, normal heart sounds. Absent: systolic murmur, diastolic murmur, rubs, gallop, clicks GI/Abdominal exam: Present: soft, normal bowel sounds. Absent: distended, tenderness, guarding, rebound, rigid Extremities exam: Present: normal inspection, full ROM, normal capillary refill. Absent: tenderness, pedal edema, joint swelling, calf tenderness Back exam: Present: normal inspection Neurological exam: Present: alert, oriented X3, CN II-XII intact Psychiatric exam: Present: normal affect, normal mood Skin exam: Present: warm, dry, intact, normal color. Absent: rash Course Vital Signs 10/27/23 10/27/23 15:15 17:41 Temperature 97.7 F 98.1 F Pulse Rate 65 67 Respiratory 18 20 Rate Blood Pressure 126/58 121/70 O2 Sat by Pulse 97 Oximetry - Reevaluation(s) Reevaluation #1: 10/27/23 17:30 Medical records reviewed Reevaluation #2: 10/27/23 17:30 Patient symptoms unchanged Reevaluation #3: 10/27/23 17:30 Patient informed of results questions answered Reevaluation #4: Was pt. sent in by a medical professional or institution (JEAN CLAUDE Childress, [employer], urgent care, hospital, or senior living...) When possible be specific @ -no Did you speak to anyone other than the patient for history (EMS, parent, family, police, friend...)? What history was obtained from this source @ -no Did you review nursing and triage notes (agree or disagree)? Why? @ -agree Are old charts reviewed (outside hosp., previous admission, EMS record, old EKG, old radiological studies, urgent care reports/EKG's, senior living records)? Report findings @ -yes Differential Diagnosis (chest pain, altered mental status, abdominal pain women, abdominal pain men, vaginal bleeding, weakness, fever, dyspnea, syncope, headache, dizziness, GI bleed, back pain, seizure, CVA, palpatations, mental health, musculoskeletal)? @ -prior EKG interpreted by me (3pts min.). @ -yes X-rays interpreted by me (1pt min.). @ -yes negative for acute disease CT interpreted by me (1pt min.). @ -no U/S interpreted by me (1pt. min.). @ -no What testing was considered but not performed or refused? (CT, X-rays, U/S, l abs)? Why? @ -none What meds were considered but not given or refused? Why? @ -none Did you discuss the management of the patient with other professionals (professionals i.e. JEAN CLAUDE Childress, [employer], lab, RT, psych nurse, social services director, kiln maintenance, teacher, international first officer, case assembler)? Give summary @ -no Was smoking cessation discussed for >3mins.? @ -no Was critical care preformed (if so, how long)? @ -no Were there social determinants of health that impacted care today? How? (Homelessness, low income, unemployed, alcoholism, drug addiction, transportation, low edu. Level, literacy, decrease access to med. care, long-term, rehab)? @ -none Was there de-escalation of care discussed even if they declined (Discuss DNR or withdrawal of care, Hospice)? DNR status @ -no What co-morbidities impacted this encounter? (DM, HTN, Smoking, COPD, CAD, Cancer, CVA, ARF, Chemo, Hep., AIDS, mental health diagnosis, sleep apnea, morbid obesity)? @ -none Was patient admitted / discharged? Hospital course, mention meds given and route, prescriptions, significant lab abnormalities, going to OR and other pertinent info. @ - 83 female nonspecific chest pain no acute cause found. Also complaining of abdominal pain no abdominal tenderness patient can be discharged home Discharge Undiagnosed new problem with uncertain prognosis? @ -no Drug Therapy requiring intensive monitoring for toxicity (Heparin, Nitro, Ins ulin, Cardizem)? @ -no Were any procedures done? @ -no Diagnosis/symptom? @ -Chest pain significant anxiety Acute, or Chronic, or Acute on Chronic? @ -Acute Uncomplicated (without systemic symptoms) or Complicated (systemic symptoms)? @ -Complicated Side effects of treatment? @ -no Exacerbation, Progression, or Severe Exacerbation? @ -exacerbation Poses a threat to life or bodily function? How? (Chest pain, [place], [place], pneumonia, PE, COPD, DKA, ARF, appy, cholecystitis, CVA, Diverticulitis, Homicidal, Suicidal, threat to staff... and all critical care pts) @ -yes with chest pain and extremes of age Reevaluation #5: Differential Chest Pain: Stable Angina, Unstable Angina, STEMI, NSTEMI Aortic Dissection, Pneumothorax, Musculoskeletal, Esophageal Spasm GERD, Cholecystitis, Pancreatitis, Zoster, this is not meant to be an all-inclusive list. Chest Pain MDM - MDM 83 female nonspecific chest pain no acute cause found. Also complaining of abdominal pain no abdominal tenderness patient can be discharged home Disposition Clinical Impression: Chest pain, Abdominal pain, Panic attack Disposition: HOME SELF-CARE Condition: Good Instructions (If sedation given, give patient instructions): Chest Pain (ED), Abdominal Pain (ED) Is patient prescribed a controlled substance at d/c from ED?: No Referrals: Pablo De La Garza DO [Primary Care Provider] - 1-2 days Time of Disposition: 17:30
[2023-10-27] MEDS: SODIUM CHLORIDE 0.9% 500 ML 500 ML IV STA (16:20)
[2023-10-27] MEDS: LORazepam 2 MG/ML INJ IV STA (16:20)
[2023-10-27 16:32] LABS: Basophils % (A) 0 %; Eosinophils # (A) 0.2 k/uL (0-0.7); Eosinophils % (A) 2 %; HCT 34.6 % (34.0-46.0); HGB 11.2 gm/dL (11.4-16.0); Lymphocytes # (A) 1.6 k/uL (1.0-4.8); Lymphocytes % (A) 21 %; MCH 29.8 pg (25.0-35.0); MCHC 32.2 g/dL (31.0-37.0); MCV 92.6 fL (80.0-100.0); Mean Platelet Volume 7.7; Monocytes # (A) 0.4 k/uL (0-1.0); Monocytes % (A) 6 %; Neutrophils # (A) 5.3 k/uL (1.3-7.7); Neutrophils % (A) 68 %; Platelet Count 265 k/uL (150-450); RBC 3.74 m/uL (3.80-5.40); WBC 7.7 k/uL (3.8-10.6)
--- NOTE | 2023-10-27 16:52 | XR ---
EXAMINATION TYPE: XR chest 1V portable DATE OF EXAM: 10/27/2023 4:44 PM CLINICAL INDICATION:Female, 83 years old with history of chest pain; [facility] COMPARISON: None TECHNIQUE: XR chest 1V portable Frontal view of the chest. FINDINGS: Lungs/Pleura: There is flattening of the diaphragm with increased lucency of the lungs. No evidence o f pneumothorax, pleural effusion or focal consolidation. Pulmonary vascularity: Unremarkable. Heart/mediastinum: Cardiomediastinal silhouette is unremarkable. Musculoskeletal: No acute osseous pathology. IMPRESSION: 1. No acute cardiopulmonary disease process. 2. COPD changes.
[2023-10-27 17:16] LABS: ALT 8 U/L (4-34); AST 14 U/L (14-36); African American GFR (CKD) >90 (>60 ml/min/1.73 sqM); Albumin 2.7 g/dL (3.5-5.0); Alkaline Phosphatase 59 U/L (38-126); Anion Gap 1 mmol/L; Blood Urea Nitrogen 11 mg/dL (7-17); Calcium 7.5 mg/dL (8.4-10.2); Carbon Dioxide 25 mmol/L (22-30); Chloride 111 mmol/L (98-107); Glucose 79 mg/dL (74-99); Magnesium 1.8 mg/dL (1.6-2.3); Non-African American GFR(CKD) 84 (>60 ml/min/1.73 sqM); Potassium 3.5 mmol/L (3.5-5.1); Sodium 137 mmol/L (137-145); Total Bilirubin 0.5 mg/dL (0.2-1.3); Total Protein 4.8 g/dL (6.3-8.2)
[2023-10-27 17:17] LABS: NT-Pro-B-Type Natriuretic Pept 25 pg/mL
[2023-10-27 17:22] LABS: INR 0.9 (<1.2)
[2023-10-27 17:23] LABS: Partial Thromboplastin Time 24.4 sec (22.0-30.0); Prothrombin Time 10.4 sec (10.0-12.5)
[2023-10-27 17:43] VITALS: BP 121/70; PULSE 67; RESP 20; TEMP 98.1
== END 2023-10-27 17:41 | disposition home or self-care (01) ==
LOC: EC 15:11
DX: F41.0 Panic disorder [episodic paroxysmal anxiety] (principal); R07.89 Other chest pain; R10.9 Unspecified abdominal pain; F17.200 Nicotine dependence, unspecified, uncomplicated; Z88.1 Allergy status to other antibiotic agents; Z88.2 Allergy status to sulfonamides; Z88.8 Allergy status to other drugs, medicaments and biological substances; Z91.041 Radiographic dye allergy status; Z86.73 Personal history of transient ischemic attack (TIA), and cerebral infarction without residual deficits
CPT/HCPCS: 36415; 93005; 83880; 80053; 83735; 84484; 85025; 85610; 85730; 71045; 99285; 96374; J2060

== ENCOUNTER 2023-11-08 21:08 | Emergency (ER) | payer MEDICARE ==
--- NOTE | 2023-11-08 21:32 | ED ---
General Adult HPI - General Source: patient, family, RN notes reviewed Mode of arrival: wheelchair Limitations: no limitations <Destiny Mcmahan - Last Filed: 11/08/23 21:31> - History of Present Illness Onset/Timin -: days(s) Severity scale (1-10): 0 Consistency: constant Improves with: none Worsens with: other (Exertion) Associated Symptoms: weakness, other (Tremor) Treatments Prior to Arrival: none <Enzo Correa - Last Filed: 11/09/23 03:06> - General Stated complaint: Weakness Time Seen by Provider: 11/08/23 21:31 - History of Present Illness Initial comments: Quick note: 83-year-old female presented to the ER with a chief complaint of weakness. She states earlier today she felt like bilateral legs were going to give out on her. She denies any fevers, cough, congestion, chest pain or shortness of breath. (Destiny Mcmahan) When I interviewed the patient, she complains of having an increase in her tremor that she has had for a long period of time. The patient was taking medication for tremor until about a year ago when the medication was stopped reportedly so that they could give her "heart medication," instead. Patient and son do not know the underlying diagnosis related to the tremor. Patient also has been having worsening of generalized weakness over the course of today. No fever or chills noted. No focal weakness. (Enzo Correa) - Related Data Home Medications Medication Instructions Recorded Confirmed Omeprazole 40 mg PO DAILY 08/24/17 10/13/23 FLUoxetine HCL [PROzac] 40 mg PO DAILY 05/21/21 10/13/23 busPIRone HCl [Buspar] 5 mg PO BID 10/30/21 10/13/23 Albuterol Nebulized [Ventolin 2.5 mg INHALATION RT-QID 07/27/22 10/13/23 Nebulized] Fluticasone/Umeclidin/Vilanter 1 puff INHALATION RT-DAILY 11/14/22 10/13/23 [Treleflorence Ellipta 100-62.5-25] Memantine [Namenda] 10 mg PO DAILY 04/22/23 10/13/23 traMADol HCl [Ultram] 50 mg PO BID PRN 12/30/23 06/21/24 Previous Rx's Medication Instructions Recorded Albuterol Inhaler [Ventolin Hfa 2 puff INHALATION RT-Q4H PRN #1 07/01/22 Inhaler] each ALPRAZolam [Xanax] 0.5 mg PO BID PRN #6 tab 01/04/23 Apixaban [Eliquis] 2.5 mg PO BID 30 Days #60 tab 10/16/23 Doxycycline [Vibramycin] 100 mg PO BID #3 cap 10/16/23 predniSONE 30 mg PO DAILY #18 tab 10/16/23 Allergies Allergy/AdvReac Type Severity Reaction Status Date / Time budesonide [From Symbicort] Allergy Unknown Verified 11/08/23 21:37 formoterol [From Symbicort] Allergy Unknown Verified 11/08/23 21:37 gabapentin Allergy Unknown Verified 11/08/23 21:37 ibuprofen Allergy Unknown Verified 11/08/23 21:37 Iodinated Contrast Media Allergy Unknown Verified 11/08/23 21:37 [Iodinated Contrast- Oral and IV Dye] iodine Allergy Rash/Hives Verified 11/08/23 21:37 Sulfa (Sulfonamide Allergy Rash/Hives Verified 11/08/23 21:37 Antibiotics) topiramate [From Topamax] Allergy Unknown Verified 11/08/23 21:37 lorazepam [From Ativan] AdvReac Hallucinati Verified 11/08/23 21:37 ons prednisone AdvReac dizziness Verified 11/08/23 21:37 zolpidem tartrate AdvReac Hallucinati Verified 11/08/23 21:37 [From Ambien] ons Review of Systems ROS Other: All systems not noted in ROS Statement are negative. <Destiny Mcmahan - Last Filed: 11/08/23 21:31> ROS Other: All systems not noted in ROS Statement are negative. Constitutional: Reports: weakness. Denies: fever, chills Eyes: Denies: vision change Respiratory: Denies: cough, dyspnea Cardiovascular: Denies: chest pain, palpitations, edema, syncope Gastrointestinal: Denies: abdominal pain, vomiting, diarrhea, constipation Genitourinary: Denies: dysuria, frequency, hematuria Musculoskeletal: Denies: back pain Skin: Denies: rash Neurological: Denies: headache, weakness, numbness, paresthesias, confusion <Enzo Correa - Last Filed: 11/09/23 03:06> ROS Statement: Those systems with pertinent positive or pertinent negative responses have been documented in the HPI. Past Medical History Past Medical History: Atrial Fibrillation, Asthma, COPD, CVA/TIA, Eye Disorder, GERD/Reflux, Hyperlipidemia, Pneumonia Additional Past Medical History / Comment(s): Chronic atrial fibrillation per PMH but pt has no recollection of this, bronchiectasis, essential tremors, previous TIA, chronic lumbar back pain, past 6 months R shoulder/cervical pain, balance difficulty with falls, occasional low urinary output and uses lasix prn for this, bilateral varicose veins, dysphagia-able to take pills one at a time with water, small hiatal hernia, restless leg syndrome, seasonal ALLERGIES, History of Any Multi-Drug Resistant Organisms: MRSA Date of last positivie culture/infection: 03/22/23 MDRO Source:: Left Heel Past Surgical History: Hysterectomy Additional Past Surgical History / Comment(s): 11/27/15 EGD with bx, bilateral cataracts removed with lens implants, colonoscopy with 1 benign polypectomy. Past Anesthesia/Blood Transfusion Reactions: No Reported Reaction Past Psychological History: Anxiety, Depression Smoking Status: Current some day smoker Past Alcohol Use History: None Reported Past Drug Use History: None Reported - Past Family History Father Family Medical History: Cancer Additional Family Medical History / Comment(s): Pt thinks father might have from stomach cancer. She was 2 yrs old when he . Sister(s) Family Medical History: Cancer Additional Family Medical History / Comment(s): Half sister with brain cancer. Mother Family Medical History: Dementia Additional Family Medical History / Comment(s): Mother had gallstones and a partial thyroidectomy for noncancerous reasons. <Destiny Mcmahan - Last Filed: 11/08/23 21:31> General Exam <Destiny Mcmahan - Last Filed: 11/08/23 21:31> General appearance: alert, in no apparent distress, other (There appears to be resting tremor) Head exam: Present: atraumatic, normocephalic Eye exam: Present: normal appearance, PERRL, EOMI. Absent: scleral icterus, conjunctival injection, nystagmus ENT exam: Present: normal oropharynx Neck exam: Present: normal inspection, full ROM. Absent: meningismus Respiratory exam: Present: normal lung sounds bilaterally. Absent: respiratory distress, wheezes, rales, rhonchi, stridor, accessory muscle use Cardiovascular Exam: Present: regular rate, normal rhythm, normal heart sounds. Absent: systolic murmur, diastolic murmur, rubs, gallop GI/Abdominal exam: Present: soft. Absent: distended, tenderness, guarding, rebound, rigid, mass Extremities exam: Present: normal inspection, normal capillary refill. Absent: pedal edema, calf tenderness Back exam: Present: normal inspection. Absent: CVA tenderness (R), CVA tenderness (L) Neurological exam: Present: alert, oriented X3, CN II-XII intact. Absent: motor sensory deficit Skin exam: Present: warm, dry, intact, normal color. Absent: rash <Enzo Correa - Last Filed: 11/09/23 03:06> - General Exam Comments Initial Comments: Visual Physical Exam Vital signs reviewed General: Well-appearing, nontoxic, no acute distress. Tremor Head: Normocephalic, atraumatic Eyes: PERRLA, EOMI ENT: Airway patent Chest: Nonlabored breathing Skin: No visual rash, normal skin tone Neuro: Alert and oriented 3 Musculoskeletal: No gross abnormalities (Destiny Mcmahan) Course Vital Signs 11/08/23 11/08/23 11/09/23 21:30 23:00 01:59 Temperature 97.4 F L Pulse Rate 66 62 55 L Respiratory 16 18 18 Rate Blood Pressure 93/65 125/54 104/63 O2 Sat by Pulse 97 99 98 Oximetry EKG Findings - EKG Comments: EKG Findings:: Interpretation is limited by artifact related to tremor. - EKG Results: EKG: interpreted by ERMJulio, sinus rhythm (Rate 62 bpm), normal axis, normal QRS <Enzo Correa - Last Filed: 11/09/23 03:06> Medical Decision Making <Destiny Mcmahan - Last Filed: 11/08/23 21:31> - Lab Data Result diagrams: 11/08/23 21:45 11/08/23 21:45 <Enzo Correa - Last Filed: 11/09/23 03:06> - Medical Decision Making I performed the quick note portion of this chart. Electronically signed by Destiny Mcmahan PA-C (Destiny Mcmahan) - Lab Data Lab Results 11/08/23 11/08/23 11/08/23 Range/Units 21:45 21:45 21:45 WBC 7.6 (3.8-10.6) k/uL RBC 4.04 (3.80-5.40) m/uL Hgb 12.3 (11.4-16.0) gm/dL Hct 37.3 (34.0-46.0) % MCV 92.3 (80.0-100.0) fL MCH 30.5 (25.0-35.0) pg MCHC 33.1 (31.0-37.0) g/dL RDW 14.0 (11.5-15.5) % Plt Count 271 (150-450) k/uL MPV 7.2 Neutrophils % 56 % Lymphocytes % 32 % Monocytes % 7 % Eosinophils % 2 % Basophils % 0 % Neutrophils # 4.2 (1.3-7.7) k/uL Lymphocytes # 2.4 (1.0-4.8) k/uL Monocytes # 0.5 (0-1.0) k/uL Eosinophils # 0.2 (0-0.7) k/uL Basophils # 0.0 (0-0.2) k/uL PT 10.7 (10.0-12.5) sec INR 1.0 (<1.2) APTT 23.8 (22.0-30.0) sec Sodium 138 (137-145) mmol/L Potassium 4.0 (3.5-5.1) mmol/L Chloride 105 (98-107) mmol/L Carbon Dioxide 27 (22-30) mmol/L Anion Gap 6 mmol/L BUN 17 (7-17) mg/dL Creatinine 0.89 (0.52-1.04) mg/dL Est GFR (CKD-EPI)AfAm 69 (>60 ml/min/1.73 sqM) Est GFR (CKD-EPI)NonAf 60 (>60 ml/min/1.73 sqM) Glucose 97 (74-99) mg/dL Plasma Lactic Acid Osmel (0.7-2.0) mmol/L Calcium 9.1 (8.4-10.2) mg/dL Magnesium 2.0 (1.6-2.3) mg/dL Total Bilirubin 0.4 (0.2-1.3) mg/dL AST 16 (14-36) U/L ALT 9 (4-34) U/L Alkaline Phosphatase 67 (38-126) U/L Troponin I (0.000-0.034) ng/mL Total Protein 6.0 L (6.3-8.2) g/dL Albumin 3.7 (3.5-5.0) g/dL Urine Color Urine Appearance (Clear) Urine pH (5.0-8.0) Ur Specific [place] (1.001-1.035) Urine Protein (Negative) Urine Glucose (UA) (Negative) Urine Ketones (Negative) Urine Blood (Negative) Urine Nitrite (Negative) Urine Bilirubin (Negative) Urine Urobilinogen (<2.0) mg/dL Ur Leukocyte Esterase (Negative) Urine RBC (0-5) /hpf Urine WBC (0-5) /hpf Ur Squamous Epith Cells (0-4) /hpf Urine Bacteria (None) /hpf 11/08/23 11/08/23 11/09/23 Range/Units 21:45 21:45 02:13 WBC (3.8-10.6) k/uL RBC (3.80-5.40) m/uL Hgb (11.4-16.0) gm/dL Hct (34.0-46.0) % MCV (80.0-100.0) fL MCH (25.0-35.0) pg MCHC (31.0-37.0) g/dL RDW (11.5-15.5) % Plt Count (150-450) k/uL MPV Neutrophils % % Lymphocytes % % Monocytes % % Eosinophils % % Basophils % % Neutrophils # (1.3-7.7) k/uL Lymphocytes # (1.0-4.8) k/uL Monocytes # (0-1.0) k/uL Eosinophils # (0-0.7) k/uL Basophils # (0-0.2) k/uL PT (10.0-12.5) sec INR (<1.2) APTT (22.0-30.0) sec Sodium (137-145) mmol/L Potassium (3.5-5.1) mmol/L Chloride (98-107) mmol/L Carbon Dioxide (22-30) mmol/L Anion Gap mmol/L BUN (7-17) mg/dL Creatinine (0.52-1.04) mg/dL Est GFR (CKD-EPI)AfAm (>60 ml/min/1.73 sqM) Est GFR (CKD-EPI)NonAf (>60 ml/min/1.73 sqM) Glucose (74-99) mg/dL Plasma Lactic Acid Osmel 1.1 (0.7-2.0) mmol/L Calcium (8.4-10.2) mg/dL Magnesium (1.6-2.3) mg/dL Total Bilirubin (0.2-1.3) mg/dL AST (14-36) U/L ALT (4-34) U/L Alkaline Phosphatase (38-126) U/L Troponin I <0.012 (0.000-0.034) ng/mL Total Protein (6.3-8.2) g/dL Albumin (3.5-5.0) g/dL Urine Color Colorless Urine Appearance Clear (Clear) Urine pH 6.0 (5.0-8.0) Ur Specific [place] 1.007 (1.001-1.035) Urine Protein Negative (Negative) Urine Glucose (UA) Negative (Negative) Urine Ketones Negative (Negative) Urine Blood Small H (Negative) Urine Nitrite Negative (Negative) Urine Bilirubin Negative (Negative) Urine Urobilinogen <2.0 (<2.0) mg/dL Ur Leukocyte Esterase Negative (Negative) Urine RBC 3 (0-5) /hpf Urine WBC <1 (0-5) /hpf Ur Squamous Epith Cells 4 (0-4) /hpf Urine Bacteria Rare H (None) /hpf Disposition <Destiny Mcmahan - Last Filed: 11/08/23 21:31> Is patient prescribed a controlled substance at d/c from ED?: No <Enzo Correa - Last Filed: 11/09/23 03:06> Clinical Impression: Weakness, Tremor Disposition: HOME SELF-CARE Condition: Fair Instructions (If sedation given, give patient instructions): Tremors (ED), De hydration (ED) Referrals: Pablo De La Garza DO [Primary Care Provider] - 1-2 days Jazmine Hyatt MD [REFERRING] - 1-2 days
[2023-11-08 21:37] VITALS: TEMP 97.4
[2023-11-08 22:12] LABS: Basophils % (A) 0 %; Eosinophils # (A) 0.2 k/uL (0-0.7); Eosinophils % (A) 2 %; HCT 37.3 % (34.0-46.0); HGB 12.3 gm/dL (11.4-16.0); Lymphocytes # (A) 2.4 k/uL (1.0-4.8); Lymphocytes % (A) 32 %; MCH 30.5 pg (25.0-35.0); MCHC 33.1 g/dL (31.0-37.0); MCV 92.3 fL (80.0-100.0); Mean Platelet Volume 7.2; Monocytes # (A) 0.5 k/uL (0-1.0); Monocytes % (A) 7 %; Neutrophils # (A) 4.2 k/uL (1.3-7.7); Neutrophils % (A) 56 %; Platelet Count 271 k/uL (150-450); RBC 4.04 m/uL (3.80-5.40); WBC 7.6 k/uL (3.8-10.6)
[2023-11-08 22:32] LABS: Partial Thromboplastin Time 23.8 sec (22.0-30.0); Prothrombin Time 10.7 sec (10.0-12.5)
[2023-11-08 22:34] LABS: ALT 9 U/L (4-34); AST 16 U/L (14-36); African American GFR (CKD) 69 (>60 ml/min/1.73 sqM); Albumin 3.7 g/dL (3.5-5.0); Alkaline Phosphatase 67 U/L (38-126); Anion Gap 6 mmol/L; Blood Urea Nitrogen 17 mg/dL (7-17); Calcium 9.1 mg/dL (8.4-10.2); Carbon Dioxide 27 mmol/L (22-30); Chloride 105 mmol/L (98-107); Glucose 97 mg/dL (74-99); Non-African American GFR(CKD) 60 (>60 ml/min/1.73 sqM); Sodium 138 mmol/L (137-145); Total Bilirubin 0.4 mg/dL (0.2-1.3)
--- NOTE | 2023-11-08 23:02 | XR ---
EXAMINATION TYPE: XR chest 2V DATE OF EXAM: 11/08/2023 COMPARISON: Prior chest x-ray October 27, 2023 HISTORY: Weakness TECHNIQUE: Frontal and lateral views of the chest are obtained. FINDINGS: There is chronic parenchymal changes bilaterally without suspicious new focal air space op acity, pleural effusion, or pneumothorax seen. Persistent cardiomegaly with atherosclerotic thoracic aorta. The osseous structures remain demineralized. IMPRESSION: Cardiomegaly and chronic parenchymal changes without acute pulmonary process.
[2023-11-08 23:04] VITALS: RESP 18
[2023-11-08] MEDS: SODIUM CHLORIDE 0.9% 500 ML 500 ML IV STA (23:05)
[2023-11-09 02:46] LABS: Appearance,Urine Clear (Clear); Bacteria,Urine Rare /hpf; Bilirubin,Urine Negative (Negative); Blood,Urine Small (Negative); Color,Urine Colorless; Glucose,Urine (UA) Negative (Negative); Ketones,Urine Negative (Negative); Leukocyte Esterase,Urine Negative (Negative); Nitrite,Urine Negative (Negative); Protein,Urine Negative (Negative); RBC,Urine 3 /hpf (0-5); Specific Gravity,Urine 1.007 (1.001-1.035); Squamous Epithelial Cell,Urine 4 /hpf (0-4); Urobilinogen,Urine <2.0 mg/dL (<2.0); WBC,Urine <1 /hpf (0-5)
[2023-11-09 03:13] VITALS: BP 112/51; PULSE 56
== END 2023-11-09 03:16 | disposition home or self-care (01) ==
LOC: EC 21:08
DX: G25.2 Other specified forms of tremor (principal); F17.200 Nicotine dependence, unspecified, uncomplicated; Z88.2 Allergy status to sulfonamides; Z88.5 Allergy status to narcotic agent; Z88.8 Allergy status to other drugs, medicaments and biological substances
CPT/HCPCS: 36415; 71046; 80053; 81001; 83605; 83735; 84484; 85025; 85610; 85730; 93005; 99285

== ENCOUNTER 2023-12-06 19:24 | Emergency (ER) | payer MEDICARE ==
[2023-12-06] MEDS ORDERED: LORazepam 2 MG/ML INJ ONE (20:16)
== END 2023-12-06 21:34 | disposition home or self-care (01) ==
LOC: EC 19:24
CPT/HCPCS: 96374; 99282

== ENCOUNTER 2024-01-05 02:31 | Emergency (ER) | payer MEDICARE ==
[2024-01-05 02:43] VITALS: TEMP 98.2
--- NOTE | 2024-01-05 02:55 | ED ---
General Adult HPI - General Chief complaint: Neuro Symptoms/Deficit Stated complaint: Difficulty Breathing Time Seen by Provider: 01/05/24 02:32 Source: patient Mode of arrival: EMS Limitations: no limitations - History of Present Illness Initial comments: Dictation was produced using [employer] dictation software. please excuse any grammatical, word or spelling errors. Chief Complaint: 83-year-old female with dyspnea History of Present Illness: Patient is 83-year-old female she is a poor historian. According to EMS patient was brought to the emergency department for shortness of breath. She is given, breathing treatments with improvement of respiratory status. Patient states that she is here because her right side of her body hurts. She did tell the nurse prior to my evaluation that she was having difficulty moving her left leg. Is unclear if patient has any history of mental debility or dementia Unable to obtain ROS secondary to mental status - Related Data Home Medications Medication Instructions Recorded Confirmed Omeprazole 40 mg PO DAILY 08/24/17 10/13/23 FLUoxetine HCL [PROzac] 40 mg PO DAILY 05/21/21 10/13/23 busPIRone HCl [Buspar] 5 mg PO BID 10/30/21 10/13/23 Albuterol Nebulized [Ventolin 2.5 mg INHALATION RT-QID 07/27/22 10/13/23 Nebulized] Fluticasone/Umeclidin/Vilanter 1 puff INHALATION RT-DAILY 11/14/22 10/13/23 [Trelegy Ellipta 100-62.5-25] Memantine [Namenda] 10 mg PO DAILY 04/22/23 10/13/23 traMADol HCl [Ultram] 50 mg PO BID PRN 04/22/23 10/13/23 Previous Rx's Medication Instructions Recorded Albuterol Inhaler [Ventolin Hfa 2 puff INHALATION RT-Q4H PRN #1 07/01/22 Inhaler] each ALPRAZolam [Xanax] 0.5 mg PO BID PRN #6 tab 01/04/23 Apixaban [Eliquis] 2.5 mg PO BID 30 Days #60 tab 10/16/23 Doxycycline [Vibramycin] 100 mg PO BID #3 cap 10/16/23 predniSONE 30 mg PO DAILY #18 tab 10/16/23 Allergies Allergy/AdvReac Type Severity Reaction Status Date / Time budesonide [From Symbicort] Allergy Unknown Verified 01/05/24 02:43 formoterol [From Symbicort] Allergy Unknown Verified 01/05/24 02:43 gabapentin Allergy Unknown Verified 01/05/24 02:43 ibuprofen Allergy Unknown Verified 01/05/24 02:43 Iodinated Contrast Media Allergy Unknown Verified 01/05/24 02:43 [Iodinated Contrast- Oral and IV Dye] iodine Allergy Rash/Hives Verified 01/05/24 02:43 Sulfa (Sulfonamide Allergy Rash/Hives Verified 01/05/24 02:43 Antibiotics) topiramate [From Topamax] Allergy Unknown Verified 01/05/24 02:43 lorazepam [From Ativan] AdvReac Hallucinati Verified 01/05/24 02:43 ons prednisone AdvReac dizziness Verified 01/05/24 02:43 zolpidem tartrate AdvReac Hallucinati Verified 01/05/24 02:43 [From Ambien] ons Review of Systems ROS Statement: Those systems with pertinent positive or pertinent negative responses have been documented in the HPI. ROS Other: All systems not noted in ROS Statement are negative. Past Medical History Past Medical History: Atrial Fibrillation, Asthma, COPD, CVA/TIA, Eye Disorder, GERD/Reflux, Hyperlipidemia, Pneumonia Additional Past Medical History / Comment(s): Chronic atrial fibrillation per PMH but pt has no recollection of this, bronchiectasis, essential tremors, previous TIA, chronic lumbar back pain, past 6 months R shoulder/cervical pain, balance difficulty with falls, occasional low urinary output and uses lasix prn for this, bilateral varicose veins, dysphagia-able to take pills one at a time with water, small hiatal hernia, restless leg syndrome, seasonal ALLERGIES, History of Any Multi-Drug Resistant Organisms: MRSA Date of last positivie culture/infection: 03/22/23 MDRO Source:: Left Heel Past Surgical History: Hysterectomy Additional Past Surgical History / Comment(s): 11/27/15 EGD with bx, bilateral cataracts removed with lens implants, colonoscopy with 1 benign polypectomy. Past Anesthesia/Blood Transfusion Reactions: No Reported Reaction Past Psychological History: Anxiety, Depression Smoking Status: Current some day smoker Past Alcohol Use History: None Reported Past Drug Use History: None Reported - Past Family History Father Family Medical History: Cancer Additional Family Medical History / Comment(s): Pt thinks father might have from stomach cancer. She was 2 yrs old when he . Sister(s) Family Medical History: Cancer Additional Family Medical History / Comment(s): Half sister with brain cancer. Mother Family Medical History: Dementia Additional Family Medical History / Comment(s): Mother had gallstones and a partial thyroidectomy for noncancerous reasons. General Exam - General Exam Comments Initial Comments: PHYSICAL EXAM: General Impression: Alert and oriented x2/4, not in acute distress HEENT: Normocephalic atraumatic, extra-ocular movements intact, pupils equal and reactive to light bilaterally, mucous membranes moist. Cardiovascular: Heart regular rate and rhythm Chest: Able to complete full sentences, no retractions, no tachypnea Abdomen: abdomen soft, non-tender, non-distended, no organomegaly Musculoskeletal: Pulses present and equal in all extremities, no peripheral edema Motor: no focal deficits noted Neurological: CN II-XII grossly intact, no focal motor or sensory deficits noted Skin: Intact with no visualized rashes Psych: Normal affect and mood Limitations: no limitations Course Vital Signs 01/05/24 01/05/24 02:33 06:07 Temperature 98.2 F Pulse Rate 60 56 L Respiratory 18 16 Rate Blood Pressure 106/73 124/64 O2 Sat by Pulse 100 99 Oximetry - Reevaluation(s) Reevaluation #1: 01/05/24 04:33 More history was obtained from patient's son who is currently at the bedside. Patient's son lives with patient. States that he was getting ready go to bed when his mother began complaining of some shortness of breath. Son reports that patient has been having increased frequency of what he describes as panic a ttacks over the last several weeks. Not sure if was a panic attack. He was not sure if she was having a COPD exacerbation. He was the one who called EMS. 01/05/24 04:35 Son reports that patient appears to be at baseline currently. States that she was recently diagnosed with dementia. Medical Decision Making - Medical Decision Making Was pt. sent in by a medical professional or institution (, PA, CREDIT ADVISOR, urgent care, hospital, or correction...) When possible be specific @ -No Did you speak to anyone other than the patient for history (EMS, parent, family, police, friend...)? What history was obtained from this source @ -Some history obtained from EMS as described above Did you review nursing and triage notes (agree or disagree)? Why? @ -I reviewed and agree with nursing and triage notes Were old charts reviewed (outside hosp., previous admission, EMS record, old EKG, old radiological studies, urgent care reports/EKG's, correction records)? Report findings @ -No old charts were reviewed Differential Diagnosis (chest pain, altered mental status, abdominal pain women, abdominal pain men, vaginal bleeding, musculoskeletal, weakness, fever, dyspnea, syncope, headache, dizziness, GI bleed, back pain, seizure, CVA, palpatations, mental health)? @ -Differential Dyspnea: Coronary syndrome, arrhythmia, tamponade, asthma, COPD, pulmonary embolism, pneumonia, pneumothorax, pulmonary effusion, anaphylaxis, diabetic ketoacidosis, flailed chest, pulmonary contusion, diaphragmatic rupture, anemia, neuromuscular, this is not meant to be an all-inclusive list. EKG interpreted by me (3pts min.). @ -See above X-rays interpreted by me (1pt min.). @ -Chest x-ray is nonacute CT interpreted by me (1pt min.). @ -CT brain shows no acute processes U/S interpreted by me (1pt. min.). @ -None done What testing was considered but not performed or refused? (CT, X-rays, U/S, labs)? Why? @ -None What meds were considered but not given or refused? Why? @ -None Was smoking cessation discussed for >3mins.? @ -No Were there social determinants of health that impacted care today? How? (Homelessness, low income, unemployed, alcoholism, drug addiction, transportation, low edu. Level, literacy, decrease access to med. care, [facility], rehab)? @ -No Was there de-escalation of care discussed even if they declined (Discuss DNR or withdrawal of care, Hospice)? DNR status @ -No What co-morbidities impacted this encounter? (DM, HTN, Smoking, COPD, CAD, Cancer, CVA, ARF, Chemo, Hep., AIDS, mental health diagnosis, sleep apnea, morbid obesity)? @ -History of COPD and dementia Was patient admitted / discharged? Hospital course, mention meds given and route, prescriptions, significant lab abnormalities, going to OR and other pertinent info. @ -83-year-old female brought in from home for dyspnea. Vital signs upon arrival are within acceptable limits. Patient well-appearing upon physical examination initial evaluation. Son states that patient has been having these bouts of what he describes as anxiety reactions. Patient well-appearing has no complaints at the bedside. Laboratory evaluation obtained. Labs are unre markable. X-ray and CT scan of the brain shows no acute processes. Patient observed emergency department for approximately 4 hours. Reevaluated bedside at approximately 6:30 AM plan to be stable medical addition. Disposition options were discussed with son and patient. Son feels comfortable taking patient home and patient would like to be discharged. Did you discuss the management of the patient with other professionals (professionals i.e. , PA, CREDIT ADVISOR, lab, RT, psych nurse, social work job titles, corrections identification technician, teacher, data officer, manager case management)? Give summary @ -No Was critical care preformed (if so, how long)? @ -No Undiagnosed new problem with uncertain prognosis? @ -No Drug Therapy requiring intensive monitoring for toxicity (Heparin, Nitro, Insulin, Cardizem)? @ -No Were any procedures done? @ -No Diagnosis/symptom? Acute, or Chronic, or Acute on Chronic? Uncomplicated (without systemic symptoms) or Complicated (systemic symptoms)? @ -Dyspnea, no high risk features Side effects of treatment? @ -No Exacerbation, Progression, or Severe Exacerbation? @ -No Poses a threat to life or bodily function? How? (Chest pain, [place], [place], pneumonia, PE, COPD, DKA, ARF, appy, cholecystitis, CVA, Diverticulitis, Homicidal, Suicidal, threat to staff... and all critical care pts) @ -No - Lab Data Result diagrams: 01/05/24 03:00 01/05/24 03:00 Lab Results 01/05/24 01/05/24 01/05/24 Range/Units 02:54 03:00 03:00 WBC 6.2 (3.8-10.6) k/uL RBC 3.61 L (3.80-5.40) m/uL Hgb 10.7 L (11.4-16.0) gm/dL Hct 33.3 L (34.0-46.0) % MCV 92.1 (80.0-100.0) fL MCH 29.7 (25.0-35.0) pg MCHC 32.3 (31.0-37.0) g/dL RDW 14.1 (11.5-15.5) % Plt Count 234 (150-450) k/uL MPV 7.3 Neutrophils % 58 % Lymphocytes % 30 % Monocytes % 7 % Eosinophils % 3 % Basophils % 0 % Neutrophils # 3.6 (1.3-7.7) k/uL Lymphocytes # 1.8 (1.0-4.8) k/uL Monocytes # 0.4 (0-1.0) k/uL Eosinophils # 0.2 (0-0.7) k/uL Basophils # 0.0 (0-0.2) k/uL PT 10.3 (10.0-12.5) sec INR 0.9 (<1.2) APTT 23.6 (22.0-30.0) sec Sodium (137-145) mmol/L Potassium (3.5-5.1) mmol/L Chloride (98-107) mmol/L Carbon Dioxide (22-30) mmol/L Anion Gap mmol/L BUN (7-17) mg/dL Creatinine (0.52-1.04) mg/dL Est GFR (CKD-EPI)AfAm (>60 ml/min/1.73 sqM) Est GFR (CKD-EPI)NonAf (>60 ml/min/1.73 sqM) Glucose (74-99) mg/dL Plasma Lactic Acid Osmel (0.7-2.0) mmol/L Calcium (8.4-10.2) mg/dL Magnesium (1.6-2.3) mg/dL Total Bilirubin (0.2-1.3) mg/dL AST (14-36) U/L ALT (4-34) U/L Alkaline Phosphatase (38-126) U/L Troponin I <0.012 (0.000-0.034) ng/mL NT-Pro-B Natriuret Pep pg/mL Total Protein (6.3-8.2) g/dL Albumin (3.5-5.0) g/dL 01/05/24 01/05/24 Range/Units 03:00 03:00 WBC (3.8-10.6) k/uL RBC (3.80-5.40) m/uL Hgb (11.4-16.0) gm/dL Hct (34.0-46.0) % MCV (80.0-100.0) fL MCH (25.0-35.0) pg MCHC (31.0-37.0) g/dL RDW (11.5-15.5) % Plt Count (150-450) k/uL MPV Neutrophils % % Lymphocytes % % Monocytes % % Eosinophils % % Basophils % % Neutrophils # (1.3-7.7) k/uL Lymphocytes # (1.0-4.8) k/uL Monocytes # (0-1.0) k/uL Eosinophils # (0-0.7) k/uL Basophils # (0-0.2) k/uL PT (10.0-12.5) sec INR (<1.2) APTT (22.0-30.0) sec Sodium 140 (137-145) mmol/L Potassium 3.7 (3.5-5.1) mmol/L Chloride 108 H (98-107) mmol/L Carbon Dioxide 26 (22-30) mmol/L Anion Gap 6 mmol/L BUN 15 (7-17) mg/dL Creatinine 0.76 (0.52-1.04) mg/dL Est GFR (CKD-EPI)AfAm 84 (>60 ml/min/1.73 sqM) Est GFR (CKD-EPI)NonAf 73 (>60 ml/min/1.73 sqM) Glucose 92 (74-99) mg/dL Plasma Lactic Acid Osmel 1.1 (0.7-2.0) mmol/L Calcium 8.5 (8.4-10.2) mg/dL Magnesium 1.9 (1.6-2.3) mg/dL Total Bilirubin 0.5 (0.2-1.3) mg/dL AST 20 (14-36) U/L ALT 9 (4-34) U/L Alkaline Phosphatase 56 (38-126) U/L Troponin I (0.000-0.034) ng/mL NT-Pro-B Natriuret Pep 95 pg/mL Total Protein 5.1 L (6.3-8.2) g/dL Albumin 2.9 L (3.5-5.0) g/dL Disposition Clinical Impression: Dyspnea Disposition: HOME SELF-CARE Condition: Good Instructions (If sedation given, give patient instructions): Dyspnea (ED) Is patient prescribed a controlled substance at d/c from ED?: No Referrals: Pablo De La Garza DO [Primary Care Provider] - 1-2 days Time of Disposition: 06:26
[2024-01-05 03:11] LABS: Basophils % (A) 0 %; Eosinophils # (A) 0.2 k/uL (0-0.7); Eosinophils % (A) 3 %; HCT 33.3 % (34.0-46.0); HGB 10.7 gm/dL (11.4-16.0); Lymphocytes # (A) 1.8 k/uL (1.0-4.8); Lymphocytes % (A) 30 %; MCH 29.7 pg (25.0-35.0); MCHC 32.3 g/dL (31.0-37.0); MCV 92.1 fL (80.0-100.0); Mean Platelet Volume 7.3; Monocytes # (A) 0.4 k/uL (0-1.0); Monocytes % (A) 7 %; Neutrophils # (A) 3.6 k/uL (1.3-7.7); Neutrophils % (A) 58 %; Platelet Count 234 k/uL (150-450); RBC 3.61 m/uL (3.80-5.40); RDW 14.1 % (11.5-15.5); WBC 6.2 k/uL (3.8-10.6)
[2024-01-05 03:17] LABS: ALT 9 U/L (4-34); African American GFR (CKD) 84 (>60 ml/min/1.73 sqM); Albumin 2.9 g/dL (3.5-5.0); Anion Gap 6 mmol/L; Blood Urea Nitrogen 15 mg/dL (7-17); Calcium 8.5 mg/dL (8.4-10.2); Carbon Dioxide 26 mmol/L (22-30); Chloride 108 mmol/L (98-107); Glucose 92 mg/dL (74-99); Non-African American GFR(CKD) 73 (>60 ml/min/1.73 sqM); Sodium 140 mmol/L (137-145); Total Bilirubin 0.5 mg/dL (0.2-1.3); Total Protein 5.1 g/dL (6.3-8.2)
[2024-01-05 03:18] LABS: AST 20 U/L (14-36); Alkaline Phosphatase 56 U/L (38-126); Magnesium 1.9 mg/dL (1.6-2.3); Potassium 3.7 mmol/L (3.5-5.1)
[2024-01-05 03:25] LABS: NT-Pro-B-Type Natriuretic Pept 95 pg/mL
[2024-01-05 03:42] LABS: INR 0.9 (<1.2); Partial Thromboplastin Time 23.6 sec (22.0-30.0); Prothrombin Time 10.3 sec (10.0-12.5)
--- NOTE | 2024-01-05 05:37 | CT ---
EXAM: CT Head Without Intravenous Contrast CLINICAL HISTORY: ITS.REASON CT Reason: dyspnea TECHNIQUE: Axial computed tomography images of the head/brain without intravenous contrast. CTDI is 49.1 mGy and DLP is 1037.4 mGy-cm. This CT exam was performed using one or more of the following dose reduction techniques: automated exposure control, adjustment of the mA and/or kV according to patient size, and/or use of iterative reconstruction technique. COMPARISON: Prior head CT from November 14, 2022. FINDINGS: Brain: Unremarkable. No hemorrhage. Mild nonspecific white matter changes. No edema. Ventricles: Moderate ventriculomegaly. Bones/joints: Unremarkable. No acute fracture. Soft tissues: Unremarkable. Sinuses: Unremarkable as visualized. No acute sinusitis. Mastoid air cells: Unremarkable as visualized. No mastoid effusion. IMPRESSION: No evidence of acute intracranial pathology.
[2024-01-05 06:08] VITALS: BP 124/64; PULSE 56; RESP 16
--- NOTE | 2024-01-05 07:42 | XR ---
EXAMINATION TYPE: XR chest 2V DATE OF EXAM: 01/05/2024 COMPARISON: 11/08/2023 HISTORY: Shortness of breath TECHNIQUE: Frontal and lateral views of the chest are obtained. FINDINGS: Scattered senescent parenchymal changes noted. Hyperinflation compatible with COPD. No evidence for infiltrate. No evidence for atelectasis. Heart size is stable. Mediastinal structures are stable and grossly unremarkable. No evidence for hilar prominence. Degenerative changes dorsal spine. IMPRESSION: 1. No evidence for acute pulmonary disease.
== END 2024-01-05 08:06 | disposition home or self-care (01) ==
LOC: EC 02:31
CPT/HCPCS: 36415; 70450; 71046; 80053; 83605; 83735; 83880; 84484; 85025; 85610; 85730; 93005; 99284

== ENCOUNTER 2024-01-15 06:46 | Emergency (ER) | payer MEDICARE ==
--- NOTE | 2024-01-15 07:20 | ED ---
Anxiety HPI - General Chief Complaint: Anxiety Stated Complaint: Anxiety Time Seen by Provider: 01/15/24 07:10 Source: patient, EMS, RN notes reviewed, old records reviewed Mode of arrival: EMS Limitations: no limitations - History of Present Illness Initial Comments: This is an 83-year-old female to ER for what family believes is anxiety, patient is off of her normal prescribed Xanax or Ativan, she is confused here in the emergency department at baseline patient has no significant complaints here MD Complaint: anxiety -: unknown Symptoms: palpitations Severity: moderate Quality: constant Provoking factors: none known Improves With: medication Worsens With: nothing Associated symptoms: weakness - Related Data Home Medications: Home Medications Medication Instructions Recorded Confirmed Omeprazole 40 mg PO DAILY 08/24/17 01/17/24 FLUoxetine HCL [PROzac] 40 mg PO DAILY 05/21/21 01/17/24 busPIRone HCl [Buspar] 5 mg PO BID 10/30/21 01/17/24 Albuterol Nebulized [Ventolin 2.5 mg INHALATION RT-TID PRN 07/27/22 01/17/24 Nebulized] Fluticasone/Umeclidin/Vilanter 1 puff INHALATION RT-DAILY 11/14/22 01/17/24 [Trelegy Ellipta 100-62.5-25] Memantine [Namenda] 10 mg PO DAILY 04/22/23 01/17/24 traMADol HCl [Ultram] 50 mg PO BID PRN 04/22/23 01/17/24 Acetaminophen [Tylenol 8 Hour] 650 mg PO Q8H PRN 01/17/24 01/17/24 Albuterol Inhaler [Ventolin Hfa 1 - 2 puff INHALATION RT-Q4H PRN 01/17/24 01/17/24 Inhaler] Propranolol [Inderal] 10 mg PO TID 01/17/24 01/17/24 Previous Rx's Medication Instructions Recorded ALPRAZolam [Xanax] 0.5 mg PO BID PRN #6 tab 01/04/23 Apixaban [Eliquis] 2.5 mg PO BID 30 Days #60 tab 10/16/23 Allergies/Adverse Reactions: Allergies Allergy/AdvReac Type Severity Reaction Status Date / Time budesonide [From Symbicort] Allergy Unknown Verified 01/17/24 16:40 formoterol [From Symbicort] Allergy Unknown Verified 01/17/24 16:40 gabapentin Allergy Unknown Verified 01/17/24 16:40 ibuprofen Allergy Unknown Verified 01/17/24 16:40 Iodinated Contrast Media Allergy Unknown Verified 01/17/24 16:40 [Iodinated Contrast- Oral and IV Dye] iodine Allergy Rash/Hives Verified 01/17/24 16:40 Sulfa (Sulfonamide Allergy Rash/Hives Verified 01/17/24 16:40 Antibiotics) topiramate [From Topamax] Allergy Unknown Verified 01/17/24 16:40 lorazepam [From Ativan] AdvReac Hallucinati Verified 01/17/24 16:40 ons prednisone AdvReac dizziness Verified 01/17/24 16:40 zolpidem tartrate AdvReac Hallucinati Verified 01/17/24 16:40 [From Ambien] ons Review of Systems ROS Statement: Those systems with pertinent positive or pertinent negative responses have been documented in the HPI. ROS Other: All systems not noted in ROS Statement are negative. Past Medical History Past Medical History: Atrial Fibrillation, Asthma, COPD, CVA/TIA, Eye Disorder, GERD/Reflux, Hyperlipidemia, Pneumonia Additional Past Medical History / Comment(s): Chronic atrial fibrillation per PMH but pt has no recollection of this, bronchiectasis, essential tremors, previous TIA, chronic lumbar back pain, past 6 months R shoulder/cervical pain, balance difficulty with falls, occasional low urinary output and uses lasix prn for this, bilateral varicose veins, dysphagia-able to take pills one at a time with water, small hiatal hernia, restless leg syndrome, seasonal ALLERGIES, History of Any Multi-Drug Resistant Organisms: MRSA Date of last positivie culture/infection: 03/22/23 MDRO Source:: Left Heel Past Surgical History: Hysterectomy Additional Past Surgical History / Comment(s): 11/27/15 EGD with bx, bilateral cataracts removed with lens implants, colonoscopy with 1 benign polypectomy. Past Anesthesia/Blood Transfusion Reactions: No Reported Reaction Past Psychological History: Anxiety, Depression Smoking Status: Current some day smoker Past Alcohol Use History: None Reported Past Drug Use History: None Reported - Past Family History Father Family Medical History: Cancer Additional Family Medical History / Comment(s): Pt thinks father might have from stomach cancer. She was 2 yrs old when he . Sister(s) Family Medical History: Cancer Additional Family Medical History / Comment(s): Half sister with brain cancer. Mother Family Medical History: Dementia Additional Family Medical History / Comment(s): Mother had gallstones and a partial thyroidectomy for noncancerous reasons. General Exam Limitations: no limitations General appearance: alert, in no apparent distress, anxious Head exam: Present: atraumatic, normocephalic, normal inspection Eye exam: Present: normal appearance, PERRL, EOMI. Absent: scleral icterus, conjunctival injection, periorbital swelling ENT exam: Present: normal exam, mucous membranes moist Neck exam: Present: normal inspection. Absent: tenderness, meningismus, lymphadenopathy Respiratory exam: Present: normal lung sounds bilaterally. Absent: respiratory distress, wheezes, rales, rhonchi, stridor Cardiovascular Exam: Present: regular rate, normal rhythm, normal heart sounds. Absent: systolic murmur, diastolic murmur, rubs, gallop, clicks GI/Abdominal exam: Present: soft, normal bowel sounds. Absent: distended, tenderness, guarding, rebound, rigid Extremities exam: Present: normal inspection, full ROM, normal capillary refill. Absent: tenderness, pedal edema, joint swelling, calf tenderness Back exam: Present: normal inspection Neurological exam: Present: alert, oriented X3, CN II-XII intact Psychiatric exam: Present: normal affect, normal mood Skin exam: Present: warm, dry, intact, normal color. Absent: rash Course Vital Signs 01/15/24 01/15/24 01/15/24 06:50 07:56 08:54 Temperature 97.8 F Pulse Rate 70 54 L 56 L Respiratory 16 18 18 Rate Blood Pressure 91/40 123/110 127/61 O2 Sat by Pulse 96 96 94 L Oximetry 01/15/24 01/15/24 09:54 10:19 Temperature 98.5 F Pulse Rate 61 61 Respiratory 18 18 Rate Blood Pressure 128/65 132/89 O2 Sat by Pulse 98 96 Oximetry - Reevaluation(s) Reevaluation #1: 01/15/24 09:58 Medical records reviewed Reevaluation #2: 01/15/24 09:58 Symptoms improved Reevaluation #3: 01/15/24 09:58 Informed of results and questions answered Reevaluation #4: Was pt. sent in by a medical professional or institution ([facility], [employer] [employer], urgent care, hospital, or jail...) When possible be specific @ -no Did you speak to anyone other than the patient for history (EMS, parent, family, police, friend...)? What history was obtained from this source @ -no Did you review nursing and triage notes (agree or disagree)? Why? @ -agree Are old charts reviewed (outside hosp., previous admission, EMS record, old EKG, old radiological studies, urgent care reports/EKG's, jail records)? Report findings @ -yes Differential Diagnosis (chest pain, altered mental status, abdominal pain women, abdominal pain men, vaginal bleeding, weakness, fever, dyspnea, syncope, headache, dizziness, GI bleed, back pain, seizure, CVA, palpatations, mental health, musculoskeletal)? @ -prior EKG interpreted by me (3pts min.). @ -yes X-rays interpreted by me (1pt min.). @ -no CT interpreted by me (1pt min.). @ -no U/S interpreted by me (1pt. min.). @ -no What testing was considered but not performed or refused? (CT, X-rays, U/S, labs)? Why? @ -none What meds were considered but not given or refused? Why? @ -none Did you discuss the management of the patient with other professionals (professionals i.e. [facility], [employer], lab, RT, psych nurse, social service agency director, intern brand, teacher, marketing officer, case aide)? Give summary @ -no Was smoking cessation discussed for >3mins.? @ -no Was critical care preformed (if so, how long)? @ -no Were there social determinants of health that impacted care today? How? (Homelessness, low income, unemployed, alcoholism, drug addiction, transportation, low edu. Level, literacy, decrease access to med. care, skilled nursing, rehab)? @ -none Was there de-escalation of care discussed even if they declined (Discuss DNR or withdrawal of care, Hospice)? DNR status @ -no What co-morbidities impacted this encounter? (DM, HTN, Smoking, COPD, CAD, Cancer, CVA, ARF, Chemo, Hep., AIDS, mental health diagnosis, sleep apnea, morbid obesity)? @ -none Was patient admitted / discharged? Hospital course, mention meds given and route, prescriptions, significant lab abnormalities, going to OR and other pertinent info. @ - 83 female to the ER today for evaluation of anxiety out of her normal prescribe Xanax, patient did recently have refill of medication otherwise no acute complaints and can be discharged home Discharge Undiagnosed new problem with uncertain prognosis? @ -no Drug Therapy requiring intensive monitoring for toxicity (Heparin, Nitro, Insulin, Cardizem)? @ -no Were any procedures done? @ -no Diagnosis/symptom? @ -Anxiety Acute, or Chronic, or Acute on Chronic? @ -Acute Uncomplicated (without systemic symptoms) or Complicated (systemic symptoms)? @ -Complicated Side effects of treatment? @ -no Exacerbation, Progression, or Severe Exacerbation? @ -exacerbation Poses a threat to life or bodily function? How? (Chest pain, USA, CO, pneumonia, PE, COPD, DKA, ARF, appy, cholecystitis, CVA, Diverticulitis, Homicidal, Suicidal, threat to staff... and all critical care pts) @ -yes extremes of age Reevaluation #5: Differential Weakness: Hypoglycemia, shock, sepsis, hyponatremia, anemia, infection, CO, ETOH, adverse medicine reaction, overdose, stroke, this is not meant to be an all-inclusive list. Medical Decision Making - Medical Decision Making 83 female to the ER today for evaluation of anxiety out of her normal prescribe Xanax, patient did recently have refill of medication otherwise no acute complaints and can be discharged home - Lab Data Result diagrams: 01/15/24 07:57 01/15/24 07:57 Lab Results 01/15/24 01/15/24 01/15/24 Range/Units 07:57 07:57 07:57 WBC 5.9 (3.8-10.6) k/uL RBC 3.84 (3.80-5.40) m/uL Hgb 11.8 (11.4-16.0) gm/dL Hct 34.6 (34.0-46.0) % MCV 90.2 (80.0-100.0) fL MCH 30.8 (25.0-35.0) pg MCHC 34.1 (31.0-37.0) g/dL RDW 14.4 (11.5-15.5) % Plt Count 278 (150-450) k/uL MPV 7.6 Neutrophils % 62 % Lymphocytes % 24 % Monocytes % 7 % Eosinophils % 4 % Basophils % 1 % Neutrophils # 3.6 (1.3-7.7) k/uL Lymphocytes # 1.4 (1.0-4.8) k/uL Monocytes # 0.4 (0-1.0) k/uL Eosinophils # 0.2 (0-0.7) k/uL Basophils # 0.0 (0-0.2) k/uL PT 10.7 (10.0-12.5) sec INR 1.0 (<1.2) APTT 24.4 (22.0-30.0) sec Sodium 137 (137-145) mmol/L Potassium 4.0 (3.5-5.1) mmol/L Chloride 110 H (98-107) mmol/L Carbon Dioxide 25 (22-30) mmol/L Anion Gap 2 mmol/L BUN 14 (7-17) mg/dL Creatinine 0.75 (0.52-1.04) mg/dL Est GFR (CKD-EPI)AfAm 85 (>60 ml/min/1.73 sqM) Est GFR (CKD-EPI)NonAf 74 (>60 ml/min/1.73 sqM) Glucose 81 (74-99) mg/dL Plasma Lactic Acid Osmel (0.7-2.0) mmol/L Calcium 8.8 (8.4-10.2) mg/dL Phosphorus 3.5 (2.5-4.5) mg/dL Magnesium 2.1 (1.6-2.3) mg/dL Total Bilirubin 0.6 (0.2-1.3) mg/dL AST 18 (14-36) U/L ALT 9 (4-34) U/L Alkaline Phosphatase 73 (38-126) U/L Troponin I (0.000-0.034) ng/mL NT-Pro-B Natriuret Pep 81 pg/mL Total Protein 5.5 L (6.3-8.2) g/dL Albumin 3.4 L (3.5-5.0) g/dL Urine Color Urine Appearance (Clear) Urine pH (5.0-8.0) Ur Specific [place] (1.001-1.035) Urine Protein (Negative) Urine Glucose (UA) (Negative) Urine Ketones (Negative) Urine Blood (Negative) Urine Nitrite (Negative) Urine Bilirubin (Negative) Urine Urobilinogen (<2.0) mg/dL Ur Leukocyte Esterase (Negative) Urine RBC (0-5) /hpf Ur Squamous Epith Cells (0-4) /hpf Urine Bacteria (None) /hpf Urine Mucus (None) /hpf 01/15/24 01/15/24 01/15/24 Range/Units 07:57 07:57 08:54 WBC (3.8-10.6) k/uL RBC (3.80-5.40) m/uL Hgb (11.4-16.0) gm/dL Hct (34.0-46.0) % MCV (80.0-100.0) fL MCH (25.0-35.0) pg MCHC (31.0-37.0) g/dL RDW (11.5-15.5) % Plt Count (150-450) k/uL MPV Neutrophils % % Lymphocytes % % Monocytes % % Eosinophils % % Basophils % % Neutrophils # (1.3-7.7) k/uL Lymphocytes # (1.0-4.8) k/uL Monocytes # (0-1.0) k/uL Eosinophils # (0-0.7) k/uL Basophils # (0-0.2) k/uL PT (10.0-12.5) sec INR (<1.2) APTT (22.0-30.0) sec Sodium (137-145) mmol/L Potassium (3.5-5.1) mmol/L Chloride (98-107) mmol/L Carbon Dioxide (22-30) mmol/L Anion Gap mmol/L BUN (7-17) mg/dL Creatinine (0.52-1.04) mg/dL Est GFR (CKD-EPI)AfAm (>60 ml/min/1.73 sqM) Est GFR (CKD-EPI)NonAf (>60 ml/min/1.73 sqM) Glucose (74-99) mg/dL Plasma Lactic Acid Osmel 1.1 (0.7-2.0) mmol/L Calcium (8.4-10.2) mg/dL Phosphorus (2.5-4.5) mg/dL Magnesium (1.6-2.3) mg/dL Total Bilirubin (0.2-1.3) mg/dL AST (14-36) U/L ALT (4-34) U/L Alkaline Phosphatase (38-126) U/L Troponin I <0.012 (0.000-0.034) ng/mL NT-Pro-B Natriuret Pep pg/mL Total Protein (6.3-8.2) g/dL Albumin (3.5-5.0) g/dL Urine Color Colorless Urine Appearance Clear (Clear) Urine pH 6.5 (5.0-8.0) Ur Specific [place] 1.006 (1.001-1.035) Urine Protein Negative (Negative) Urine Glucose (UA) Negative (Negative) Urine Ketones Negative (Negative) Urine Blood Small H (Negative) Urine Nitrite Negative (Negative) Urine Bilirubin Negative (Negative) Urine Urobilinogen <2.0 (<2.0) mg/dL Ur Leukocyte Esterase Negative (Negative) Urine RBC 11 H (0-5) /hpf Ur Squamous Epith Cells <1 (0-4) /hpf Urine Bacteria Rare H (None) /hpf Urine Mucus Rare H (None) /hpf - EKG Data -: EKG Interpreted by Me (EKG is sinus bradycardia 56 IA 147 QRS 84 QTc 420) - Radiology Data Radiology results: report reviewed (Chest x-ray is negative for acute disease), image reviewed Disposition Clinical Impression: Acute anxiety, Medicine refill, Weakness Disposition: HOME SELF-CARE Condition: Fair Instructions (If sedation given, give patient instructions): Generalized Anxiety Disorder (ED) Is patient prescribed a controlled substance at d/c from ED?: No Referrals: Pablo De La Garza DO [Primary Care Provider] - 01/17/24 4:20 pm Time of Disposition: 10:00
[2024-01-15 07:58] VITALS: RESP 18
[2024-01-15] MEDS: ONDANSETRON 4 MG/2 ML VIAL IVP STA (08:02)
[2024-01-15] MEDS: SODIUM CHLORIDE 0.9% 1,000 ML IV STA (08:02)
[2024-01-15 08:08] LABS: Basophils % (A) 1 %; Eosinophils # (A) 0.2 k/uL (0-0.7); Eosinophils % (A) 4 %; HCT 34.6 % (34.0-46.0); HGB 11.8 gm/dL (11.4-16.0); Lymphocytes # (A) 1.4 k/uL (1.0-4.8); Lymphocytes % (A) 24 %; MCH 30.8 pg (25.0-35.0); MCHC 34.1 g/dL (31.0-37.0); MCV 90.2 fL (80.0-100.0); Mean Platelet Volume 7.6; Monocytes # (A) 0.4 k/uL (0-1.0); Monocytes % (A) 7 %; Neutrophils # (A) 3.6 k/uL (1.3-7.7); Neutrophils % (A) 62 %; Platelet Count 278 k/uL (150-450); RBC 3.84 m/uL (3.80-5.40); RDW 14.4 % (11.5-15.5); WBC 5.9 k/uL (3.8-10.6)
[2024-01-15 08:12] LABS: Partial Thromboplastin Time 24.4 sec (22.0-30.0); Prothrombin Time 10.7 sec (10.0-12.5)
--- NOTE | 2024-01-15 08:48 | XR ---
EXAMINATION TYPE: XR chest 2V DATE OF EXAM: 01/15/2024 COMPARISON: 01/05/2024 TECHNIQUE: PA and lateral views submitted. HISTORY: Weakness FINDINGS: The lungs are clear and there is no pneumothorax, pleural effusion, or focal pneumonia. The heart en larged. Diffuse osteopenia. Atherosclerotic change aorta. Chronic appearing compression deformities a t the thoracolumbar junction similar to prior exam. Linear subsegmental scarring or atelectasis. Susp ect that there is a small hiatal hernia. IMPRESSION: 1. COPD and cardiomegaly.. [facility], , 01/15/2024 8:46 AM
[2024-01-15 09:24] LABS: Appearance,Urine Clear (Clear); Bacteria,Urine Rare /hpf; Bilirubin,Urine Negative (Negative); Blood,Urine Small (Negative); Color,Urine Colorless; Glucose,Urine (UA) Negative (Negative); Ketones,Urine Negative (Negative); Leukocyte Esterase,Urine Negative (Negative); Mucus,Urine Rare /hpf; Nitrite,Urine Negative (Negative); PH, Urine 6.5 (5.0-8.0); Protein,Urine Negative (Negative); RBC,Urine 11 /hpf (0-5); Specific Gravity,Urine 1.006 (1.001-1.035); Squamous Epithelial Cell,Urine <1 /hpf (0-4); Urobilinogen,Urine <2.0 mg/dL (<2.0)
[2024-01-15 09:34] LABS: ALT 9 U/L (4-34); AST 18 U/L (14-36); African American GFR (CKD) 85 (>60 ml/min/1.73 sqM); Albumin 3.4 g/dL (3.5-5.0); Alkaline Phosphatase 73 U/L (38-126); Anion Gap 2 mmol/L; Blood Urea Nitrogen 14 mg/dL (7-17); Calcium 8.8 mg/dL (8.4-10.2); Carbon Dioxide 25 mmol/L (22-30); Chloride 110 mmol/L (98-107); Glucose 81 mg/dL (74-99); Magnesium 2.1 mg/dL (1.6-2.3); Non-African American GFR(CKD) 74 (>60 ml/min/1.73 sqM); Phosphorus 3.5 mg/dL (2.5-4.5); Sodium 137 mmol/L (137-145); Total Bilirubin 0.6 mg/dL (0.2-1.3); Total Protein 5.5 g/dL (6.3-8.2)
[2024-01-15 09:41] LABS: NT-Pro-B-Type Natriuretic Pept 81 pg/mL
[2024-01-15 09:58] VITALS: PULSE 61
[2024-01-15 10:21] VITALS: BP 132/89; TEMP 98.5
== END 2024-01-15 10:21 | disposition home or self-care (01) ==
LOC: EC 06:46
CPT/HCPCS: 36415; 71046; 80053; 81001; 83605; 83735; 83880; 84100; 84484; 85025; 85610; 85730; 93005; 96361; 96374; 96375; 99284

== ENCOUNTER 2024-01-17 14:38 | Emergency (ER) | payer MEDICARE ==
[2024-01-17 15:01] VITALS: TEMP 98.4
--- NOTE | 2024-01-17 15:47 | XR ---
EXAMINATION TYPE: XR chest 2V DATE OF EXAM: 01/17/2024 3:40 PM CLINICAL INDICATION: Female, 83 years old with history of Weakness; [facility] COMPARISON: Chest radiographs from 01/15/2024 TECHNIQUE: XR chest 2V Frontal view of the chest. FINDINGS: Lungs/Pleura: There is no evidence of pleural effusion, focal consolidation, or pneumothorax. Pulmonary vascularity: Unremarkable. Heart/mediastinum: Cardiomediastinal silhouette is unremarkable. Musculoskeletal: No acute osseous pathology. IMPRESSION: No acute cardiopulmonary disease/process. [facility], , 01/17/2024 3:45 PM
--- NOTE | 2024-01-17 16:19 | ED ---
Weakness HPI - General Chief complaint: Weakness Stated complaint: weakness Time Seen by Provider: 01/17/24 16:00 Source: patient, RN notes reviewed, old records reviewed Mode of arrival: EMS Limitations: altered mental status, physical limitation - History of Present Illness Initial comments: This is an 83-year-old female with poor story and a recent ER visit coming in for weakness today. MD Complaint: generalized weakness -: days(s) Location: generalized Consistency: constant Improves with: none Worsens with: none Context: history of similar Associated Symptoms: confusion - Related Data Home Medications Medication Instructions Recorded Confirmed Omeprazole 40 mg PO DAILY 08/24/17 01/17/24 FLUoxetine HCL [PROzac] 40 mg PO DAILY 05/21/21 01/17/24 busPIRone HCl [Buspar] 5 mg PO BID 10/30/21 01/17/24 Albuterol Nebulized [Ventolin 2.5 mg INHALATION RT-TID PRN 07/27/22 01/17/24 Nebulized] Fluticasone/Umeclidin/Vilanter 1 puff INHALATION RT-DAILY 11/14/22 01/17/24 [Treleflorence Ellipta 100-62.5-25] Memantine [Namenda] 10 mg PO DAILY 04/22/23 01/17/24 traMADol HCl [Ultram] 50 mg PO BID PRN 04/22/23 01/17/24 Acetaminophen [Tylenol 8 Hour] 650 mg PO Q8H PRN 01/17/24 01/17/24 Albuterol Inhaler [Ventolin Hfa 1 - 2 puff INHALATION RT-Q4H PRN 01/17/24 01/17/24 Inhaler] Propranolol [Inderal] 10 mg PO TID 01/17/24 01/17/24 Previous Rx's Medication Instructions Recorded ALPRAZolam [Xanax] 0.5 mg PO BID PRN #6 tab 01/04/23 Apixaban [Eliquis] 2.5 mg PO BID 30 Days #60 tab 10/16/23 Allergies Allergy/AdvReac Type Severity Reaction Status Date / Time budesonide [From Symbicort] Allergy Unknown Verified 01/17/24 16:40 formoterol [From Symbicort] Allergy Unknown Verified 01/17/24 16:40 gabapentin Allergy Unknown Verified 01/17/24 16:40 ibuprofen Allergy Unknown Verified 01/17/24 16:40 Iodinated Contrast Media Allergy Unknown Verified 01/17/24 16:40 [Iodinated Contrast- Oral and IV Dye] iodine Allergy Rash/Hives Verified 01/17/24 16:40 Sulfa (Sulfonamide Allergy Rash/Hives Verified 01/17/24 16:40 Antibiotics) topiramate [From Topamax] Allergy Unknown Verified 01/17/24 16:40 lorazepam [From Ativan] AdvReac Hallucinati Verified 01/17/24 16:40 ons prednisone AdvReac dizziness Verified 01/17/24 16:40 zolpidem tartrate AdvReac Hallucinati Verified 01/17/24 16:40 [From Ambien] ons Review of Systems ROS Statement: Those systems with pertinent positive or pertinent negative responses have been documented in the HPI. ROS Other: All systems not noted in ROS Statement are negative. Past Medical History Past Medical History: Atrial Fibrillation, Asthma, COPD, CVA/TIA, Eye Disorder, GERD/Reflux, Hyperlipidemia, Pneumonia Additional Past Medical History / Comment(s): Chronic atrial fibrillation per PMH but pt has no recollection of this, bronchiectasis, essential tremors, previous TIA, chronic lumbar back pain, past 6 months R shoulder/cervical pain, balance difficulty with falls, occasional low urinary output and uses lasix prn for this, bilateral varicose veins, dysphagia-able to take pills one at a time with water, small hiatal hernia, restless leg syndrome, seasonal ALLERGIES, History of Any Multi-Drug Resistant Organisms: MRSA Date of last positivie culture/infection: 03/22/23 MDRO Source:: Left Heel Past Surgical History: Hysterectomy Additional Past Surgical History / Comment(s): 11/27/15 EGD with bx, bilateral cataracts removed with lens implants, colonoscopy with 1 benign polypectomy. Past Anesthesia/Blood Transfusion Reactions: No Reported Reaction Past Psychological History: Anxiety, Depression Smoking Status: Current some day smoker Past Alcohol Use History: None Reported Past Drug Use History: None Reported - Past Family History Father Family Medical History: Cancer Additional Family Medical History / Comment(s): Pt thinks father might have from stomach cancer. She was 2 yrs old when he . Sister(s) Family Medical History: Cancer Additional Family Medical History / Comment(s): Half sister with brain cancer. Mother Family Medical History: Dementia Additional Family Medical History / Comment(s): Mother had gallstones and a pa rtial thyroidectomy for noncancerous reasons. General Exam Limitations: no limitations General appearance: alert, in no apparent distress Head exam: Present: atraumatic, normocephalic, normal inspection Eye exam: Present: normal appearance, PERRL, EOMI. Absent: scleral icterus, conjunctival injection, periorbital swelling ENT exam: Present: normal exam, mucous membranes moist Neck exam: Present: normal inspection. Absent: tenderness, meningismus, lymphadenopathy Respiratory exam: Present: normal lung sounds bilaterally. Absent: respiratory distress, wheezes, rales, rhonchi, stridor Cardiovascular Exam: Present: regular rate, normal rhythm, normal heart sounds. Absent: systolic murmur, diastolic murmur, rubs, gallop, clicks GI/Abdominal exam: Present: soft, normal bowel sounds. Absent: distended, tenderness, guarding, rebound, rigid Extremities exam: Present: normal inspection, full ROM, normal capillary refill. Absent: tenderness, pedal edema, joint swelling, calf tenderness Back exam: Present: normal inspection Neurological exam: Present: alert, oriented X3, CN II-XII intact Psychiatric exam: Present: normal affect, normal mood Skin exam: Present: warm, dry, intact, normal color. Absent: rash Course Vital Signs 01/17/24 01/17/24 14:59 19:38 Temperature 98.4 F Pulse Rate 79 76 Respiratory 20 18 Rate Blood Pressure 168/79 157/79 O2 Sat by Pulse 99 96 Oximetry - Reevaluation(s) Reevaluation #1: 01/17/24 18:28 Medical records reviewed Reevaluation #2: 01/17/24 18:28 Patient symptoms unchanged Reevaluation #3: 01/17/24 18:28 Patient informed of results and questions answered Reevaluation #4: Was pt. sent in by a medical professional or institution (, PA, GARAGE DOOR TECHNICIAN, urgent care, hospital, or intermediate...) When possible be specific @ -no Did you speak to anyone other than the patient for history (EMS, parent, family, police, friend...)? What history was obtained from this source @ -no Did you review nursing and triage notes (agree or disagree)? Why? @ -agree Are old charts reviewed (outside hosp., previous admission, EMS record, old EKG, old radiological studies, urgent care reports/EKG's, intermediate records)? Report findings @ -yes Differential Diagnosis (chest pain, altered mental status, abdominal pain women, abdominal pain men, vaginal bleeding, weakness, fever, dyspnea, syncope, headache, dizziness, GI bleed, back pain, seizure, CVA, palpatations, mental health, musculoskeletal)? @ -prior EKG interpreted by me (3pts min.). @ -yes X-rays interpreted by me (1pt min.). @ -yes negative for acute disease CT interpreted by me (1pt min.). @ -no U/S interpreted by me (1pt. min.). @ -no What testing was considered but not performed or refused? (CT, X-rays, U/S, labs)? Why? @ -none What meds were considered but not given or refused? Why? @ -none Did you discuss the management of the patient with other professionals (professionals i.e. , PA, GARAGE DOOR TECHNICIAN, lab, RT, psych nurse, hospice social worker, pretzel cooker, teacher, neighborhood conservation officer, field nurse case manager)? Give summary @ -no Was smoking cessation discussed for >3mins.? @ -no Was critical care preformed (if so, how long)? @ -no Were there social determinants of health that impacted care today? How? (Homelessness, low income, unemployed, alcoholism, drug addiction, transportation, low edu. Level, literacy, decrease access to med. care, nursing home, rehab)? @ -none Was there de-escalation of care discussed even if they declined (Discuss DNR or withdrawal of care, Hospice)? DNR status @ -no What co-morbidities impacted this encounter? (DM, HTN, Smoking, COPD, CAD, Cancer, CVA, ARF, Chemo, Hep., AIDS, mental health diagnosis, sleep apnea, morbid obesity)? @ -none Was patient admitted / discharged? Hospital course, mention meds given and route, prescriptions, significant lab abnormalities, going to OR and other pertinent info. @ - 83 female for weakness, patient is a poor historian secondary to underlying dementia, patient will be discharged home with no acute findings Undiagnosed new problem with uncertain prognosis? @ -no Drug Therapy requiring intensive monitoring for toxicity (Heparin, Nitro, Insulin, Cardizem)? @ -no Were any procedures done? @ -no Diagnosis/symptom? @ -Weakness altered mental status Acute, or Chronic, or Acute on Chronic? @ -Acute Uncomplicated (without systemic symptoms) or Complicated (systemic symptoms)? @ -Complicated Side effects of treatment? @ -no Exacerbation, Progression, or Severe Exacerbation? @ -exacerbation Poses a threat to life or bodily function? How? (Chest pain, USA, MN, pneumonia, PE, COPD, DKA, ARF, appy, cholecystitis, CVA, Diverticulitis, Homicidal, Suicidal, threat to staff... and all critical care pts) @ -yes extremes of age Reevaluation #5: Differential Weakness: Hypoglycemia, shock, sepsis, hyponatremia, anemia, infection, MN, ETOH, adverse medicine reaction, overdose, stroke, this is not meant to be an all-inclusive list. Differential Altered Mental Status: Hypoglycemia, DKA, hypercapnia, ETOH, overdose, CO poisoning, trauma, myxedema coma, HTN encephalopathy, infection, encephalitis, psychosis, intercranial hemorrhage, hepatic encephalopathy, meningitis, CVA, this is not meant to be an all-inclusive list EKG Findings - EKG Comments: EKG Findings:: EKG is sinus bradycardia 57 [place] 144 QRS 84 QTc 410 - EKG Results: EKG: interpreted by JERONIMOD Medical Decision Making - Medical Decision Making 83 female for weakness, patient is a poor historian secondary to underlying angie ntia, patient will be discharged home with no acute findings - Lab Data Result diagrams: 01/17/24 15:21 01/17/24 15:21 Lab Results 01/17/24 01/17/24 01/17/24 Range/Units 15:21 15:21 15:21 WBC 5.5 (3.8-10.6) k/uL RBC 3.88 (3.80-5.40) m/uL Hgb 11.3 L (11.4-16.0) gm/dL Hct 35.9 (34.0-46.0) % MCV 92.6 (80.0-100.0) fL MCH 29.1 (25.0-35.0) pg MCHC 31.4 (31.0-37.0) g/dL RDW 14.0 (11.5-15.5) % Plt Count 260 (150-450) k/uL MPV 7.9 Neutrophils % 61 % Lymphocytes % 26 % Monocytes % 8 % Eosinophils % 2 % Basophils % 0 % Neutrophils # 3.4 (1.3-7.7) k/uL Lymphocytes # 1.4 (1.0-4.8) k/uL Monocytes # 0.5 (0-1.0) k/uL Eosinophils # 0.1 (0-0.7) k/uL Basophils # 0.0 (0-0.2) k/uL PT 10.7 (10.0-12.5) sec INR 1.0 (<1.2) APTT 25.2 (22.0-30.0) sec Sodium 136 L (137-145) mmol/L Potassium 4.7 (3.5-5.1) mmol/L Chloride 104 (98-107) mmol/L Carbon Dioxide 29 (22-30) mmol/L Anion Gap 3 mmol/L BUN 17 (7-17) mg/dL Creatinine 0.74 (0.52-1.04) mg/dL Est GFR (CKD-EPI)AfAm 87 (>60 ml/min/1.73 sqM) Est GFR (CKD-EPI)NonAf 76 (>60 ml/min/1.73 sqM) Glucose 86 (74-99) mg/dL Plasma Lactic Acid Osmel (0.7-2.0) mmol/L Calcium 8.6 (8.4-10.2) mg/dL Total Bilirubin 0.9 (0.2-1.3) mg/dL AST 29 (14-36) U/L ALT 11 (4-34) U/L Alkaline Phosphatase 54 (38-126) U/L Troponin I (0.000-0.034) ng/mL Total Protein 5.9 L (6.3-8.2) g/dL Albumin 3.5 (3.5-5.0) g/dL 01/17/24 01/17/24 Range/Units 15:21 15:21 WBC (3.8-10.6) k/uL RBC (3.80-5.40) m/uL Hgb (11.4-16.0) gm/dL Hct (34.0-46.0) % MCV (80.0-100.0) fL MCH (25.0-35.0) pg MCHC (31.0-37.0) g/dL RDW (11.5-15.5) % Plt Count (150-450) k/uL MPV Neutrophils % % Lymphocytes % % Monocytes % % Eosinophils % % Basophils % % Neutrophils # (1.3-7.7) k/uL Lymphocytes # (1.0-4.8) k/uL Monocytes # (0-1.0) k/uL Eosinophils # (0-0.7) k/uL Basophils # (0-0.2) k/uL PT (10.0-12.5) sec INR (<1.2) APTT (22.0-30.0) sec Sodium (137-145) mmol/L Potassium (3.5-5.1) mmol/L Chloride (98-107) mmol/L Carbon Dioxide (22-30) mmol/L Anion Gap mmol/L BUN (7-17) mg/dL Creatinine (0.52-1.04) mg/dL Est GFR (CKD-EPI)AfAm (>60 ml/min/1.73 sqM) Est GFR (CKD-EPI)NonAf (>60 ml/min/1.73 sqM) Glucose (74-99) mg/dL Plasma Lactic Acid Osmel 0.7 (0.7-2.0) mmol/L Calcium (8.4-10.2) mg/dL Total Bilirubin (0.2-1.3) mg/dL AST (14-36) U/L ALT (4-34) U/L Alkaline Phosphatase (38-126) U/L Troponin I <0.012 (0.000-0.034) ng/mL Total Protein (6.3-8.2) g/dL Albumin (3.5-5.0) g/dL - EKG Data -: EKG Interpreted by Oh - Radiology Data Radiology results: report reviewed (Chest x-ray is negative for acute disease), image reviewed Disposition Clinical Impression: Weakness, Altered mental status Disposition: HOME SELF-CARE Condition: Fair Instructions (If sedation given, give patient instructions): Weakness (ED) Is patient prescribed a controlled substance at d/c from ED?: No Referrals: Pablo De La Garza DO [Primary Care Provider] - 1-2 days Time of Disposition: 18:30
[2024-01-17 16:26] LABS: Basophils % (A) 0 %; Eosinophils # (A) 0.1 k/uL (0-0.7); Eosinophils % (A) 2 %; HCT 35.9 % (34.0-46.0); HGB 11.3 gm/dL (11.4-16.0); Lymphocytes # (A) 1.4 k/uL (1.0-4.8); Lymphocytes % (A) 26 %; MCH 29.1 pg (25.0-35.0); MCHC 31.4 g/dL (31.0-37.0); MCV 92.6 fL (80.0-100.0); Mean Platelet Volume 7.9; Monocytes # (A) 0.5 k/uL (0-1.0); Monocytes % (A) 8 %; Neutrophils # (A) 3.4 k/uL (1.3-7.7); Neutrophils % (A) 61 %; Platelet Count 260 k/uL (150-450); RBC 3.88 m/uL (3.80-5.40); WBC 5.5 k/uL (3.8-10.6)
[2024-01-17 16:39] LABS: ALT 11 U/L (4-34); AST 29 U/L (14-36); African American GFR (CKD) 87 (>60 ml/min/1.73 sqM); Albumin 3.5 g/dL (3.5-5.0); Alkaline Phosphatase 54 U/L (38-126); Anion Gap 3 mmol/L; Blood Urea Nitrogen 17 mg/dL (7-17); Calcium 8.6 mg/dL (8.4-10.2); Carbon Dioxide 29 mmol/L (22-30); Chloride 104 mmol/L (98-107); Glucose 86 mg/dL (74-99); Non-African American GFR(CKD) 76 (>60 ml/min/1.73 sqM); Potassium 4.7 mmol/L (3.5-5.1); Sodium 136 mmol/L (137-145); Total Bilirubin 0.9 mg/dL (0.2-1.3); Total Protein 5.9 g/dL (6.3-8.2)
[2024-01-17 16:57] LABS: Partial Thromboplastin Time 25.2 sec (22.0-30.0); Prothrombin Time 10.7 sec (10.0-12.5)
[2024-01-17 19:39] VITALS: BP 157/79; PULSE 76; RESP 18
== END 2024-01-17 19:39 | disposition home or self-care (01) ==
LOC: EC 14:38
CPT/HCPCS: 36415; 71046; 80053; 83605; 84484; 85025; 85610; 85730; 93005; 99285

== ENCOUNTER → 2024-02-07 | Outpatient (CLI) | payer MEDICARE ==
--- NOTE | 2024-02-07 16:08 | XR ---
EXAMINATION TYPE: XR shoulder complete RT DATE OF EXAM: 02/07/2024 3:39 PM CLINICAL INDICATION: Female, 83 years old with history of [id number] RT SHLD PAIN; [facility] COMPARISON: 10/30/2021 TECHNIQUE: XR shoulder complete RT; examined in AP, internally rotated and scapular Y projections. FINDINGS: No evidence of acute osseous pathology, joint dislocation, or soft tissue swelling. The remaining po rtions of the visualized chest are unremarkable. Degeneration changes of the acromion, distal clavic le with osteophyte formation. There is osteophyte formation of the glenoid and humeral head. There is joint space narrowing of glenohumeral joint. IMPRESSION: 1. No acute osseous pathology. 2. 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 [facility], , 02/07/2024 4:06 PM
== END | disposition home or self-care (01) ==
LOC: RADXRYALE 15:19
PROVIDERS: ATTEND Physician Assistant Medical
DX: M19.011 Primary osteoarthritis, right shoulder (principal)

== ENCOUNTER 2024-02-08 19:06 | Emergency (ER) | payer MEDICARE ==
--- NOTE | 2024-02-08 19:13 | ED ---
SOB HPI - General Stated Complaint: SOB Time Seen by Provider: 02/08/24 19:11 Source: RN notes reviewed, old records reviewed Limitations: no limitations - History of Present Illness Initial Comments: This is a 83-year-old female to the ER. This patient presents today for evaluation regards to likely underlying anxiety but she is complaining of shortness of breath. She does have multiple repeat ER visits for anxiety and shaking. Comes by EMS today with low blood oxygen level and shortness of breath MD Complaint: shortness of breath, "asthma attack", anxiety -: days(s) Severity: severe Severity scale (1-10): 10 Quality: dull, aching, throbbing Consistency: constant Improves With: nothing Worsens With: nothing Known History Of: COPD Context: recent URI - Related Data Home Medications Medication Instructions Recorded Confirmed Omeprazole 40 mg PO DAILY 08/24/17 01/17/24 FLUoxetine HCL [PROzac] 40 mg PO DAILY 05/21/21 01/17/24 busPIRone HCl [Buspar] 5 mg PO BID 10/30/21 01/17/24 Albuterol Nebulized [Ventolin 2.5 mg INHALATION RT-TID PRN 07/27/22 01/17/24 Nebulized] Fluticasone/Umeclidin/Vilanter 1 puff INHALATION RT-DAILY 11/14/22 01/17/24 [Trelegy Ellipta 100-62.5-25] Memantine [Namenda] 10 mg PO DAILY 04/22/23 01/17/24 traMADol HCl [Ultram] 50 mg PO BID PRN 04/22/23 01/17/24 Acetaminophen [Tylenol 8 Hour] 650 mg PO Q8H PRN 01/17/24 01/17/24 Albuterol Inhaler [Ventolin Hfa 1 - 2 puff INHALATION RT-Q4H PRN 01/17/24 01/17/24 Inhaler] Propranolol [Inderal] 10 mg PO TID 01/17/24 01/17/24 Previous Rx's Medication Instructions Recorded ALPRAZolam [Xanax] 0.5 mg PO BID PRN #6 tab 01/04/23 Apixaban [Eliquis] 2.5 mg PO BID 30 Days #60 tab 10/16/23 Allergies Allergy/AdvReac Type Severity Reaction Status Date / Time budesonide [From Symbicort] Allergy Unknown Verified 01/17/24 16:40 formoterol [From Symbicort] Allergy Unknown Verified 01/17/24 16:40 gabapentin Allergy Unknown Verified 01/17/24 16:40 ibuprofen Allergy Unknown Verified 01/17/24 16:40 Iodinated Contrast Media Allergy Unknown Verified 01/17/24 16:40 [Iodinated Contrast- Oral and IV Dye] iodine Allergy Rash/Hives Verified 01/17/24 16:40 Sulfa (Sulfonamide Allergy Rash/Hives Verified 01/17/24 16:40 Antibiotics) topiramate [From Topamax] Allergy Unknown Verified 01/17/24 16:40 lorazepam [From Ativan] AdvReac Hallucinati Verified 01/17/24 16:40 ons prednisone AdvReac dizziness Verified 01/17/24 16:40 zolpidem tartrate AdvReac Hallucinati Verified 01/17/24 16:40 [From Ambien] ons Review of Systems ROS Statement: Those systems with pertinent positive or pertinent negative responses have been documented in the HPI. ROS Other: All systems not noted in ROS Statement are negative. Past Medical History Past Medical History: Atrial Fibrillation, Asthma, COPD, CVA/TIA, Eye Disorder, GERD/Reflux, Hyperlipidemia, Pneumonia Additional Past Medical History / Comment(s): Chronic atrial fibrillation per PMH but pt has no recollection of this, bronchiectasis, essential tremors, previous TIA, chronic lumbar back pain, past 6 months R shoulder/cervical pain, balance difficulty with falls, occasional low urinary output and uses lasix prn for this, bilateral varicose veins, dysphagia-able to take pills one at a time with water, small hiatal hernia, restless leg syndrome, seasonal ALLERGIES, History of Any Multi-Drug Resistant Organisms: MRSA Date of last positivie culture/infection: 03/22/23 MDRO Source:: Left Heel Past Surgical History: Hysterectomy Additional Past Surgical History / Comment(s): 11/27/15 EGD with bx, bilateral cataracts removed with lens implants, colonoscopy with 1 benign polypectomy. Past Anesthesia/Blood Transfusion Reactions: No Reported Reaction Past Psychological History: Anxiety, Depression Smoking Status: Current some day smoker Past Alcohol Use History: None Reported Past Drug Use History: None Reported - Past Family History Father Family Medical History: Cancer Additional Family Medical History / Comment(s): Pt thinks father might have from stomach cancer. She was 2 yrs old when he . Sister(s) Family Medical History: Cancer Additional Family Medical History / Comment(s): Half sister with brain cancer. Mother Family Medical History: Dementia Additional Family Medical History / Comment(s): Mother had gallstones and a partial thyroidectomy for noncancerous reasons. General Exam General appearance: alert, in no apparent distress Head exam: Present: atraumatic, normocephalic, normal inspection Eye exam: Present: normal appearance, PERRL, EOMI. Absent: scleral icterus, conjunctival injection, periorbital swelling ENT exam: Present: normal exam, mucous membranes moist Neck exam: Present: normal inspection. Absent: tenderness, meningismus, lymphadenopathy Respiratory exam: Present: normal lung sounds bilaterally. Absent: respiratory distress, wheezes, rales, rhonchi, stridor Cardiovascular Exam: Present: regular rate, normal rhythm, normal heart sounds. Absent: systolic murmur, diastolic murmur, rubs, gallop, clicks GI/Abdominal exam: Present: soft, normal bowel sounds. Absent: distended, tenderness, guarding, rebound, rigid Extremities exam: Present: normal inspection, full ROM, normal capillary refill. Absent: tenderness, pedal edema, joint swelling, calf tenderness Back exam: Present: normal inspection Neurological exam: Present: alert, oriented X3, CN II-XII intact Psychiatric exam: Present: normal affect, normal mood Skin exam: Present: warm, dry, intact, normal color. Absent: rash Course Vital Signs 02/08/24 02/08/24 02/08/24 19:08 20:25 20:32 Temperature 97.9 F Pulse Rate 66 66 59 L Respiratory 18 Rate Blood Pressure 148/69 O2 Sat by Pulse 98 Oximetry 02/08/24 22:20 Temperature 97.9 F Pulse Rate 70 Respiratory 18 Rate Blood Pressure 129/67 O2 Sat by Pulse 98 Oximetry - Reevaluation(s) Reevaluation #1: 02/08/24 20:22 Medical records reviewed Reevaluation #2: 02/08/24 20:22 Patient symptoms are improving Reevaluation #3: 02/08/24 20:22 Patient informed of results and questions answered Reevaluation #4: Was pt. sent in by a medical professional or institution (JEAN CLAUDE Childress, PANELBOARD OPERATOR, urgent care, hospital, or [place] health care facility...) When possible be specific @ -no Did you speak to anyone other than the patient for history (EMS, parent, family, police, friend...)? What history was obtained from this source @ -no Did you review nursing and triage notes (agree or disagree)? Why? @ -agree Are old charts reviewed (outside hosp., previous admission, EMS record, old EKG, old radiological studies, urgent care reports/EKG's, [place] health care facility records)? Report findings @ -yes Differential Diagnosis (chest pain, altered mental status, abdominal pain women, abdominal pain men, vaginal bleeding, weakness, fever, dyspnea, syncope, headache, dizziness, GI bleed, back pain, seizure, CVA, palpatations, mental health, musculoskeletal)? @ -prior EKG interpreted by me (3pts min.). @ -yes X-rays interpreted by me (1pt min.). @ -yes negative for acute disease CT interpreted by me (1pt min.). @ -no U/S interpreted by me (1pt. min.). @ -no What testing was considered but not performed or refused? (CT, X-rays, U/S, labs)? Why? @ -none What meds were considered but not given or refused? Why? @ -none Did you discuss the management of the patient with other professionals (professionals i.e. JEAN CLAUDE Childress, PANELBOARD OPERATOR, lab, RT, psych nurse, neonatal social worker, grey roll man, teacher, chief talent officer, case specialist)? Give summary @ -no Was smoking cessation discussed for >3mins.? @ -no Was critical care preformed (if so, how long)? @ -no Were there social determinants of health that impacted care today? How? (Homelessness, low income, unemployed, alcoholism, drug addiction, transportation, low edu. Level, literacy, decrease access to med. care, senior living, rehab)? @ -none Was there de-escalation of care discussed even if they declined (Discuss DNR or withdrawal of care, Hospice)? DNR status @ -no What co-morbidities impacted this encounter? (DM, HTN, Smoking, COPD, CAD, Cancer, CVA, ARF, Chemo, Hep., AIDS, mental health diagnosis, sleep apnea, morbid obesity)? @ -none Was patient admitted / discharged? Hospital course, mention meds given and route, prescriptions, significant lab abnormalities, going to OR and other pertinent info. @ - 83 male with shortness of breath no respiratory distress significant anxiety can be discharged home Discharged Undiagnosed new problem with uncertain prognosis? @ -no Drug Therapy requiring intensive monitoring for toxicity (Heparin, Nitro, Insulin, Cardizem)? @ -no Were any procedures done? @ -no Diagnosis/symptom? @ -Anxiety with shortness of breath, COPD Acute, or Chronic, or Acute on Chronic? @ -Acute Uncomplicated (without systemic symptoms) or Complicated (systemic symptoms)? @ -Complicated Side effects of treatment? @ -no Exacerbation, Progression, or Severe Exacerbation? @ -exacerbation Poses a threat to life or bodily function? How? (Chest pain, [place], [place], pneumonia, PE, COPD, DKA, ARF, appy, cholecystitis, CVA, Diverticulitis, Homicidal, Suicidal, threat to staff... and all critical care pts) @ -yes extremes of age Medical Decision Making - Medical Decision Making 83 male with shortness of breath no respiratory distress significant anxiety can be discharged home - Lab Data Result diagrams: 02/08/24 19:45 02/08/24 19:45 Lab Results 02/08/24 02/08/24 02/08/24 Range/Units 19:45 19:45 19:45 WBC 6.2 (3.8-10.6) k/uL RBC 4.06 (3.80-5.40) m/uL Hgb 12.5 (11.4-16.0) gm/dL Hct 37.0 (34.0-46.0) % MCV 91.1 (80.0-100.0) fL MCH 30.8 (25.0-35.0) pg MCHC 33.8 (31.0-37.0) g/dL RDW 14.0 (11.5-15.5) % Plt Count 256 (150-450) k/uL MPV 7.5 Neutrophils % 50 % Lymphocytes % 35 % Monocytes % 8 % Eosinophils % 3 % Basophils % 1 % Neutrophils # 3.1 (1.3-7.7) k/uL Lymphocytes # 2.2 (1.0-4.8) k/uL Monocytes # 0.5 (0-1.0) k/uL Eosinophils # 0.2 (0-0.7) k/uL Basophils # 0.0 (0-0.2) k/uL PT 10.4 (10.0-12.5) sec INR 0.9 (<1.2) APTT 23.7 (22.0-30.0) sec Sodium 137 (137-145) mmol/L Potassium 4.3 (3.5-5.1) mmol/L Chloride 106 (98-107) mmol/L Carbon Dioxide 26 (22-30) mmol/L Anion Gap 5 mmol/L BUN 14 (7-17) mg/dL Creatinine 0.87 (0.52-1.04) mg/dL Est GFR (CKD-EPI)AfAm 71 (>60 ml/min/1.73 sqM) Est GFR (CKD-EPI)NonAf 62 (>60 ml/min/1.73 sqM) Glucose 84 (74-99) mg/dL Plasma Lactic Acid Osmel (0.7-2.0) mmol/L Calcium 9.1 (8.4-10.2) mg/dL Magnesium 2.1 (1.6-2.3) mg/dL Total Bilirubin 0.7 (0.2-1.3) mg/dL AST 17 (14-36) U/L ALT 10 (4-34) U/L Alkaline Phosphatase 80 (38-126) U/L Troponin I (0.000-0.034) ng/mL NT-Pro-B Natriuret Pep 31 pg/mL Total Protein 6.1 L (6.3-8.2) g/dL Albumin 4.0 (3.5-5.0) g/dL 02/08/24 02/08/24 Range/Units 19:45 19:45 WBC (3.8-10.6) k/uL RBC (3.80-5.40) m/uL Hgb (11.4-16.0) gm/dL Hct (34.0-46.0) % MCV (80.0-100.0) fL MCH (25.0-35.0) pg MCHC (31.0-37.0) g/dL RDW (11.5-15.5) % Plt Count (150-450) k/uL MPV Neutrophils % % Lymphocytes % % Monocytes % % Eosinophils % % Basophils % % Neutrophils # (1.3-7.7) k/uL Lymphocytes # (1.0-4.8) k/uL Monocytes # (0-1.0) k/uL Eosinophils # (0-0.7) k/uL Basophils # (0-0.2) k/uL PT (10.0-12.5) sec INR (<1.2) APTT (22.0-30.0) sec Sodium (137-145) mmol/L Potassium (3.5-5.1) mmol/L Chloride (98-107) mmol/L Carbon Dioxide (22-30) mmol/L Anion Gap mmol/L BUN (7-17) mg/dL Creatinine (0.52-1.04) mg/dL Est GFR (CKD-EPI)AfAm (>60 ml/min/1.73 sqM) Est GFR (CKD-EPI)NonAf (>60 ml/min/1.73 sqM) Glucose (74-99) mg/dL Plasma Lactic Acid Osmel 0.9 (0.7-2.0) mmol/L Calcium (8.4-10.2) mg/dL Magnesium (1.6-2.3) mg/dL Total Bilirubin (0.2-1.3) mg/dL AST (14-36) U/L ALT (4-34) U/L Alkaline Phosphatase (38-126) U/L Troponin I <0.012 (0.000-0.034) ng/mL NT-Pro-B Natriuret Pep pg/mL Total Protein (6.3-8.2) g/dL Albumin (3.5-5.0) g/dL - Radiology Data Radiology results: report reviewed (Chest x-ray is negative for acute disease), image reviewed Disposition Clinical Impression: COPD exacerbation, Weakness, Acute anxiety Disposition: HOME SELF-CARE Condition: Fair Instructions (If sedation given, give patient instructions): Dyspnea (ED) Is patient prescribed a controlled substance at d/c from ED?: No Referrals: Wen Wu PAC [REFERRING] - 1-2 days Time of Disposition: 21:00
[2024-02-08 19:18] VITALS: RESP 18; TEMP 97.9
[2024-02-08 20:05] LABS: Basophils % (A) 1 %; Eosinophils # (A) 0.2 k/uL (0-0.7); Eosinophils % (A) 3 %; HGB 12.5 gm/dL (11.4-16.0); Lymphocytes # (A) 2.2 k/uL (1.0-4.8); Lymphocytes % (A) 35 %; MCH 30.8 pg (25.0-35.0); MCHC 33.8 g/dL (31.0-37.0); MCV 91.1 fL (80.0-100.0); Mean Platelet Volume 7.5; Monocytes # (A) 0.5 k/uL (0-1.0); Monocytes % (A) 8 %; Neutrophils # (A) 3.1 k/uL (1.3-7.7); Neutrophils % (A) 50 %; Platelet Count 256 k/uL (150-450); RBC 4.06 m/uL (3.80-5.40); WBC 6.2 k/uL (3.8-10.6)
[2024-02-08 20:16] LABS: INR 0.9 (<1.2); Partial Thromboplastin Time 23.7 sec (22.0-30.0); Prothrombin Time 10.4 sec (10.0-12.5)
--- NOTE | 2024-02-08 20:20 | XR ---
EXAMINATION TYPE: XR chest 1V portable DATE OF EXAM: 02/08/2024 8:03 PM CLINICAL INDICATION: Female, 83 years old with history of sob; [facility] COMPARISON: Chest radiographs from 01/17/2024 TECHNIQUE: XR chest 1V portable Frontal view of the chest. FINDINGS: Lungs/Pleura: There is flattening of the diaphragm with increased lucency of the lungs. No evidence o f pneumothorax, pleural effusion or focal consolidation. Pulmonary vascularity: Unremarkable. Heart/mediastinum: Cardiomediastinal silhouette is unremarkable. Musculoskeletal: No acute osseous pathology. IMPRESSION: 1. No acute cardiopulmonary disease process. 2. COPD changes. [facility], , 02/08/2024 8:17 PM
[2024-02-08] MEDS: IPRATROPIUM-ALBUTEROL 3 ML NEB INHALATION STA (20:23)
[2024-02-08 20:48] LABS: ALT 10 U/L (4-34); AST 17 U/L (14-36); African American GFR (CKD) 71 (>60 ml/min/1.73 sqM); Alkaline Phosphatase 80 U/L (38-126); Anion Gap 5 mmol/L; Blood Urea Nitrogen 14 mg/dL (7-17); Calcium 9.1 mg/dL (8.4-10.2); Carbon Dioxide 26 mmol/L (22-30); Chloride 106 mmol/L (98-107); Glucose 84 mg/dL (74-99); Magnesium 2.1 mg/dL (1.6-2.3); Non-African American GFR(CKD) 62 (>60 ml/min/1.73 sqM); Potassium 4.3 mmol/L (3.5-5.1); Sodium 137 mmol/L (137-145); Total Bilirubin 0.7 mg/dL (0.2-1.3); Total Protein 6.1 g/dL (6.3-8.2)
[2024-02-08 20:55] LABS: NT-Pro-B-Type Natriuretic Pept 31 pg/mL
[2024-02-08] MEDS: SODIUM CHLORIDE 0.9% 1,000 ML IV STA (20:59)
[2024-02-08] MEDS: diphenhydrAMINE 50 MG/ML 1 ML VIAL IVP STA (21:02)
[2024-02-08] MEDS: methylPREDNISolone SOD SUCCI 125 MG/2 ML VIAL IV STA (21:03)
[2024-02-08 22:22] VITALS: BP 129/67; PULSE 70
== END 2024-02-08 22:22 | disposition home or self-care (01) ==
LOC: EC 19:06
DX: J44.1 Chronic obstructive pulmonary disease with (acute) exacerbation (principal); R53.1 Weakness; F41.9 Anxiety disorder, unspecified; Z86.73 Personal history of transient ischemic attack (TIA), and cerebral infarction without residual deficits; F17.200 Nicotine dependence, unspecified, uncomplicated; Z91.041 Radiographic dye allergy status; Z88.8 Allergy status to other drugs, medicaments and biological substances; Z88.1 Allergy status to other antibiotic agents; Z88.2 Allergy status to sulfonamides
CPT/HCPCS: 36415; 94640; 83880; 80053; 83605; 83735; 84484; 85025; 85610; 85730; 71045; 99285; 96374; 96375 ×2; 96361; J1200; J3360; J2919

== ENCOUNTER 2024-02-11 20:14 | Emergency (ER) | payer MEDICARE ==
[2024-02-11] MEDS: DILTIAZEM 125 MG in SODIUM CHLORIDE 0.9% 100 ML IV SCH (21:38)
[2024-02-11] MEDS: DILTIAZEM DRIP BOLUS FROM BAG 1 MG SOLN IV ONE (21:39)
[2024-02-11] MEDS: SODIUM CHLORIDE 0.9% 500 ML 500 ML IV ONE (21:42)
[2024-02-11 21:46] LABS: Basophils % (A) 0 %; Eosinophils # (A) 0.1 k/uL (0-0.7); Eosinophils % (A) 2 %; HCT 34.8 % (34.0-46.0); Lymphocytes # (A) 2.4 k/uL (1.0-4.8); Lymphocytes % (A) 33 %; MCH 31.2 pg (25.0-35.0); MCHC 34.4 g/dL (31.0-37.0); MCV 90.7 fL (80.0-100.0); Mean Platelet Volume 7.7; Monocytes # (A) 0.6 k/uL (0-1.0); Monocytes % (A) 8 %; Neutrophils # (A) 3.9 k/uL (1.3-7.7); Neutrophils % (A) 54 %; Platelet Count 248 k/uL (150-450); RBC 3.83 m/uL (3.80-5.40); WBC 7.2 k/uL (3.8-10.6)
[2024-02-11 21:55] LABS: Partial Thromboplastin Time 24.1 sec (22.0-30.0); Prothrombin Time 10.5 sec (10.0-12.5)
--- NOTE | 2024-02-11 22:03 | XR ---
EXAMINATION TYPE: XR chest 2V DATE OF EXAM: 02/11/2024 9:59 PM CLINICAL INDICATION: Female, 83 years old with history of difficulty breathing; [facility] COMPARISON: Chest radiographs from 02/08/2024 TECHNIQUE: XR chest 2V Frontal view of the chest. FINDINGS: Lungs/Pleura: There is flattening of the diaphragm with increased lucency of the lungs. No evidence o f pneumothorax, pleural effusion or focal consolidation. Pulmonary vascularity: Unremarkable. Heart/mediastinum: Cardiomediastinal silhouette is unremarkable. Musculoskeletal: No acute osseous pathology. IMPRESSION: 1. No acute cardiopulmonary disease process. 2. COPD changes. [facility], , 02/11/2024 10:01 PM
[2024-02-11 22:12] LABS: ALT 8 U/L (4-34); AST 14 U/L (14-36); African American GFR (CKD) 78 (>60 ml/min/1.73 sqM); Albumin 3.1 g/dL (3.5-5.0); Alkaline Phosphatase 68 U/L (38-126); Anion Gap 4 mmol/L; Blood Urea Nitrogen 17 mg/dL (7-17); Calcium 8.6 mg/dL (8.4-10.2); Carbon Dioxide 28 mmol/L (22-30); Chloride 107 mmol/L (98-107); Glucose 118 mg/dL (74-99); Magnesium 2.1 mg/dL (1.6-2.3); Non-African American GFR(CKD) 68 (>60 ml/min/1.73 sqM); Potassium 3.6 mmol/L (3.5-5.1); Sodium 139 mmol/L (137-145); Total Bilirubin 0.3 mg/dL (0.2-1.3); Total Protein 5.2 g/dL (6.3-8.2)
--- NOTE | 2024-02-12 00:39 | ED ---
General Adult HPI - General Chief complaint: Shortness of Breath Stated complaint: SOB Time Seen by Provider: 02/11/24 20:46 Source: patient, EMS Mode of arrival: EMS Limitations: no limitations - History of Present Illness Initial comments: 83-year-old female presenting with chief complaint of shortness of breath. Patient is brought in by EMS. Upon arrival she is dyspneic and tachycardic. She reports no chest pain. She does not answer in full sentences. She is pleasantly confused and is difficult to obtain a meaningful history from her at this time. - Related Data Home Medications Medication Instructions Recorded Confirmed Omeprazole 40 mg PO DAILY 08/24/17 01/17/24 FLUoxetine HCL [PROzac] 40 mg PO DAILY 05/21/21 01/17/24 busPIRone HCl [Buspar] 5 mg PO BID 10/30/21 01/17/24 Albuterol Nebulized [Ventolin 2.5 mg INHALATION RT-TID PRN 07/27/22 01/17/24 Nebulized] Fluticasone/Umeclidin/Vilanter 1 puff INHALATION RT-DAILY 11/14/22 01/17/24 [Trelegy Ellipta 100-62.5-25] Memantine [Namenda] 10 mg PO DAILY 04/22/23 01/17/24 traMADol HCl [Ultram] 50 mg PO BID PRN 04/22/23 01/17/24 Acetaminophen [Tylenol 8 Hour] 650 mg PO Q8H PRN 01/17/24 01/17/24 Albuterol Inhaler [Ventolin Hfa 1 - 2 puff INHALATION RT-Q4H PRN 01/17/24 01/17/24 Inhaler] Propranolol [Inderal] 10 mg PO TID 01/17/24 01/17/24 Previous Rx's Medication Instructions Recorded ALPRAZolam [Xanax] 0.5 mg PO BID PRN #6 tab 01/04/23 Apixaban [Eliquis] 2.5 mg PO BID 30 Days #60 tab 10/16/23 Allergies Allergy/AdvReac Type Severity Reaction Status Date / Time budesonide [From Symbicort] Allergy Unknown Verified 01/17/24 16:40 formoterol [From Symbicort] Allergy Unknown Verified 01/17/24 16:40 gabapentin Allergy Unknown Verified 01/17/24 16:40 ibuprofen Allergy Unknown Verified 01/17/24 16:40 Iodinated Contrast Media Allergy Unknown Verified 01/17/24 16:40 [Iodinated Contrast- Oral and IV Dye] iodine Allergy Rash/Hives Verified 01/17/24 16:40 Sulfa (Sulfonamide Allergy Rash/Hives Verified 01/17/24 16:40 Antibiotics) topiramate [From Topamax] Allergy Unknown Verified 01/17/24 16:40 lorazepam [From Ativan] AdvReac Hallucinati Verified 01/17/24 16:40 ons prednisone AdvReac dizziness Verified 01/17/24 16:40 zolpidem tartrate AdvReac Hallucinati Verified 01/17/24 16:40 [From Ambien] ons Review of Systems ROS Statement: Those systems with pertinent positive or pertinent negative responses have been documented in the HPI. ROS Other: All systems not noted in ROS Statement are negative. Past Medical History Past Medical History: Atrial Fibrillation, Asthma, COPD, CVA/TIA, Eye Disorder, GERD/Reflux, Hyperlipidemia, Pneumonia Additional Past Medical History / Comment(s): Chronic atrial fibrillation per PMH but pt has no recollection of this, bronchiectasis, essential tremors, previous TIA, chronic lumbar back pain, past 6 months R shoulder/cervical pain, balance difficulty with falls, occasional low urinary output and uses lasix prn for this, bilateral varicose veins, dysphagia-able to take pills one at a time with water, small hiatal hernia, restless leg syndrome, seasonal ALLERGIES, History of Any Multi-Drug Resistant Organisms: MRSA Date of last positivie culture/infection: 03/22/23 MDRO Source:: Left Heel Past Surgical History: Hysterectomy Additional Past Surgical History / Comment(s): 11/27/15 EGD with bx, bilateral cataracts removed with lens implants, colonoscopy with 1 benign polypectomy. Past Anesthesia/Blood Transfusion Reactions: No Reported Reaction Past Psychological History: Anxiety, Depression Smoking Status: Current some day smoker Past Alcohol Use History: None Reported Past Drug Use History: None Reported - Past Family History Father Family Medical History: Cancer Additional Family Medical History / Comment(s): Pt thinks father might have from stomach cancer. She was 2 yrs old when he . Sister(s) Family Medical History: Cancer Additional Family Medical History / Comment(s): Half sister with brain cancer. Mother Family Medical History: Dementia Additional Family Medical History / Comment(s): Mother had gallstones and a partial thyroidectomy for noncancerous reasons. General Exam Limitations: no limitations General appearance: alert, in no apparent distress Head exam: Present: atraumatic, normocephalic, normal inspection Eye exam: Present: normal appearance, EOMI Neck exam: Present: normal inspection. Absent: meningismus Respiratory exam: Absent: wheezes, rales, rhonchi, stridor Cardiovascular Exam: Present: tachycardia, irregular rhythm Neurological exam: Present: alert, oriented X3 Psychiatric exam: Present: normal affect, normal mood Skin exam: Present: warm, dry Course Vital Signs 02/11/24 02/11/24 02/11/24 20:23 20:45 21:30 Temperature 97.7 F Pulse Rate 133 H 137 H 124 H Respiratory 16 16 16 Rate Blood Pressure 84/70 98/66 91/61 O2 Sat by Pulse 99 98 98 Oximetry 02/11/24 02/11/24 02/11/24 21:45 22:00 22:30 Temperature Pulse Rate 105 H 108 H 62 Respiratory 17 16 16 Rate Blood Pressure 77/53 83/51 84/51 O2 Sat by Pulse 97 98 99 Oximetry 02/11/24 02/11/24 02/12/24 23:00 23:30 00:25 Temperature Pulse Rate 62 65 67 Respiratory 15 14 12 Rate Blood Pressure 78/56 90/67 112/65 O2 Sat by Pulse 99 98 95 Oximetry 02/12/24 02/12/24 00:50 00:51 Temperature 98.7 F Pulse Rate 65 Respiratory 16 Rate Blood Pressure 102/58 O2 Sat by Pulse 98 Oximetry Medical Decision Making - Medical Decision Making Was pt. sent in by a medical professional or institution (, PA, SKILLED HELPER, urgent care, hospital, or senior care...) When possible be specific @ -No Did you speak to anyone other than the patient for history (EMS, parent, family, police, friend...)? What history was obtained from this source @ -No Did you review nursing and triage notes (agree or disagree)? Why? @ -I reviewed and agree with nursing and triage notes Were old charts reviewed (outside hosp., previous admission, EMS record, old EKG, old radiological studies, urgent care reports/EKG's, senior care records)? Report findings @ -No old charts were reviewed Differential Diagnosis (chest pain, altered mental status, abdominal pain women, abdominal pain men, vaginal bleeding, weakness, fever, dyspnea, syncope, headache, dizziness, GI bleed, back pain, seizure, CVA, palpatations, mental health, musculoskeletal)? @ -[facility] Differential Dyspnea: Coronary syndrome, arrhythmia, tamponade, asthma, COPD, pulmonary embolism, pneumonia, pneumothorax, pulmonary effusion, anaphylaxis, diabetic ketoacidosis, flailed chest, pulmonary contusion, diaphragmatic rupture, anemia, neuromuscular this is not meant to be an all-inclusive list. EKG interpreted by me (3pts min.). @ -EKG shows atrial fibrillation with rapid ventricular response. Ventricular rate 127. QRS 82. QT 313. QTc 388. X-rays interpreted by me (1pt min.). @ -Chest x-ray shows chronic changes consistent with COPD, no acute process CT interpreted by me (1pt min.). @ -None done U/S interpreted by me (1pt. min.). @ -None done What testing was considered but not performed or refused? (CT, X-rays, U/S, labs)? Why? @ -None What meds were considered but not given or refused? Why? @ -None Did you discuss the management of the patient with other professionals (professionals i.e. , PA, SKILLED HELPER, lab, RT, psych nurse, oncology social work, oliving machine operator, teacher, chairman & chief executive officer, rehabilitation caseworker)? Give summary @ -No Was smoking cessation discussed for >3mins.? @ -No Was critical care preformed (if so, how long)? @ -No Were there social determinants of health that impacted care today? How? (Homelessness, low income, unemployed, alcoholism, drug addiction, transportation, low edu. Level, literacy, decrease access to med. care, long-term, rehab)? @ -No Was there de-escalation of care discussed even if they declined (Discuss DNR or withdrawal of care, Hospice)? DNR status @ -No What co-morbidities impacted this encounter? (DM, HTN, Smoking, COPD, CAD, Cancer, CVA, ARF, Chemo, Hep., AIDS, mental health diagnosis, sleep apnea, morbid obesity)? @ -None Was patient admitted / discharged? Hospital course, mention meds given and route, prescriptions, significant lab abnormalities, going to OR and other pertinent info. @ -83-year-old female brought in by EMS with chief complaint of dyspnea. Upon arrival patient is tachycardic. She is noted to be in A-fib RVR. She has soft blood pressures in the 90s over 60s. She is started on Cardizem bolus 5 mg at a rate of 5 mg/h. Lab work requires no action, negative troponin with no leukocytosis or anemia. Negative for influenza, RSV, COVID. Chest x-ray shows no acute process. On reassessment the patient's rate has improved to the 60s and her blood pressures remain soft. Patient appears significantly improved, she is able to speak in full sentences now and engages in more conversation. Cardizem is discontinued. Patient is observed and sustains a rate in the 60s. Patient has history of A-fib, she is currently on Eliquis and propranolol. She is able to stand without difficulty. Patient would like to go home and I believe this is reasonable. Her son is present, she lives with her son and he will take her home. He is agreeable with this plan. Discharged. Follow-up with PCP. Report back to ER with any new or worsening symptoms. Discussed return parameters and answered all questions. Patient and son conveyed verbal understanding and agreed to the plan. I discussed this case in detail with my attending Dr. Correa Undiagnosed new problem with uncertain prognosis? @ -No Drug Therapy requiring intensive monitoring for toxicity (Heparin, Nitro, Insulin, Cardizem)? @ -No Were any procedures done? @ -No Diagnosis/symptom? @ -A-fib RVR Acute, or Chronic, or Acute on Chronic? @ -Acute Uncomplicated (without systemic symptoms) or Complicated (systemic symptoms)? @ -Complicated Side effects of treatment? @ -No Exacerbation, Progression, or Severe Exacerbation? @ -No Poses a threat to life or bodily function? How? (Chest pain, USA, [place], pneumonia, PE, COPD, DKA, ARF, appy, cholecystitis, CVA, Diverticulitis, Homicidal, Suic idal, threat to staff... and all critical care pts) @ -Yes if not properly treated - Lab Data Result diagrams: 02/11/24 21:39 02/11/24 21:39 Lab Results 02/11/24 02/11/2402/10/24 Range/Units 21:39 21:39 21:39 WBC 7.2 (3.8-10.6) k/uL RBC 3.83 (3.80-5.40) m/uL Hgb 12.0 (11.4-16.0) gm/dL Hct 34.8 (34.0-46.0) % MCV 90.7 (80.0-100.0) fL MCH 31.2 (25.0-35.0) pg MCHC 34.4 (31.0-37.0) g/dL RDW 14.0 (11.5-15.5) % Plt Count 248 (150-450) k/uL MPV 7.7 Neutrophils % 54 % Lymphocytes % 33 % Monocytes % 8 % Eosinophils % 2 % Basophils % 0 % Neutrophils # 3.9 (1.3-7.7) k/uL Lymphocytes # 2.4 (1.0-4.8) k/uL Monocytes # 0.6 (0-1.0) k/uL Eosinophils # 0.1 (0-0.7) k/uL Basophils # 0.0 (0-0.2) k/uL PT 10.5 (10.0-12.5) sec INR 1.0 (<1.2) APTT 24.1 (22.0-30.0) sec Sodium 139 (137-145) mmol/L Potassium 3.6 (3.5-5.1) mmol/L Chloride 107 (98-107) mmol/L Carbon Dioxide 28 (22-30) mmol/L Anion Gap 4 mmol/L BUN 17 (7-17) mg/dL Creatinine 0.81 (0.52-1.04) mg/dL Est GFR (CKD-EPI)AfAm 78 (>60 ml/min/1.73 sqM) Est GFR (CKD-EPI)NonAf 68 (>60 ml/min/1.73 sqM) Glucose 118 H (74-99) mg/dL Plasma Lactic Acid Osmel (0.7-2.0) mmol/L Calcium 8.6 (8.4-10.2) mg/dL Magnesium 2.1 (1.6-2.3) mg/dL Total Bilirubin 0.3 (0.2-1.3) mg/dL AST 14 (14-36) U/L ALT 8 (4-34) U/L Alkaline Phosphatase 68 (38-126) U/L Troponin I (0.000-0.034) ng/mL Total Protein 5.2 L (6.3-8.2) g/dL Albumin 3.1 L (3.5-5.0) g/dL Influenza Type A (PCR) (Not Detectd) Influenza Type B (PCR) (Not Detectd) RSV (PCR) (Not Detectd) SARS-CoV-2 (PCR) (Not Detectd) 02/11/24 02/11/24 02/11/24 Range/Units 21:39 21:39 22:08 WBC (3.8-10.6) k/uL RBC (3.80-5.40) m/uL Hgb (11.4-16.0) gm/dL Hct (34.0-46.0) % MCV (80.0-100.0) fL MCH (25.0-35.0) pg MCHC (31.0-37.0) g/dL RDW (11.5-15.5) % Plt Count (150-450) k/uL MPV Neutrophils % % Lymphocytes % % Monocytes % % Eosinophils % % Basophils % % Neutrophils # (1.3-7.7) k/uL Lymphocytes # (1.0-4.8) k/uL Monocytes # (0-1.0) k/uL Eosinophils # (0-0.7) k/uL Basophils # (0-0.2) k/uL PT (10.0-12.5) sec INR (<1.2) APTT (22.0-30.0) sec Sodium (137-145) mmol/L Potassium (3.5-5.1) mmol/L Chloride (98-107) mmol/L Carbon Dioxide (22-30) mmol/L Anion Gap mmol/L BUN (7-17) mg/dL Creatinine (0.52-1.04) mg/dL Est GFR (CKD-EPI)AfAm (>60 ml/min/1.73 sqM) Est GFR (CKD-EPI)NonAf (>60 ml/min/1.73 sqM) Glucose (74-99) mg/dL Plasma Lactic Acid Osmel 1.5 (0.7-2.0) mmol/L Calcium (8.4-10.2) mg/dL Magnesium (1.6-2.3) mg/dL Total Bilirubin (0.2-1.3) mg/dL AST (14-36) U/L ALT (4-34) U/L Alkaline Phosphatase (38-126) U/L Troponin I <0.012 (0.000-0.034) ng/mL Total Protein (6.3-8.2) g/dL Albumin (3.5-5.0) g/dL Influenza Type A (PCR) Not Detected (Not Detectd) Influenza Type B (PCR) Not Detected (Not Detectd) RSV (PCR) Not Detected (Not Detectd) SARS-CoV-2 (PCR) Not Detected (Not Detectd) Disposition Clinical Impression: Atrial fibrillation with RVR Disposition: HOME SELF-CARE Condition: Fair Instructions (If sedation given, give patient instructions): A-fib (Atrial Fibrillation) (ED) Additional Instructions: Follow-up with your PCP. Report back to ER with any new or worsening symptoms. Is patient prescribed a controlled substance at d/c from ED?: No Referrals: Pablo De La Garza DO [Primary Care Provider] - 1-2 days Time of Disposition: 00:39
[2024-02-12 00:51] VITALS: BP 102/58; RESP 16
[2024-02-12 00:52] VITALS: TEMP 98.7
[2024-02-12 06:35] VITALS: PULSE 130
== END 2024-02-12 00:52 | disposition home or self-care (01) ==
LOC: EC 20:14
CPT/HCPCS: 36415; 71046; 80053; 83605; 83735; 84484; 85025; 85610; 85730; 87636; 93005; 96365; 99285

== ENCOUNTER 2024-02-29 06:29 | Emergency (ER) | payer MEDICARE ==
--- NOTE | 2024-02-29 06:51 | ED ---
Fall HPI - General Chief Complaint: Fall Stated Complaint: Fall Time Seen by Provider: 02/29/24 06:33 Source: patient, EMS, old records reviewed Mode of arrival: EMS Limitations: no limitations - History of Present Illness Initial Comments: 83 year old female presents to the emergency department via EMS with chief complaint of fall. She reports taking blood thinners but she is unsure when the last time she took them. She states that she was getting up from dining room table and walking to kitchen when she fell. She is unsure how she fell or whether she hit her head or lost consciousness but she states that she was on the ground for about an hour. Her son attempted to help her up, but was unable to so they called EMS. She reports some neck pain, mostly related to C collar but denies headache, vision changes, shortness of breath, or chest pain presently. - Related Data Home Medications Medication Instructions Recorded Confirmed Omeprazole 40 mg PO DAILY 08/24/17 01/17/24 FLUoxetine HCL [PROzac] 40 mg PO DAILY 05/21/21 01/17/24 busPIRone HCl [Buspar] 5 mg PO BID 10/30/21 01/17/24 Albuterol Nebulized [Ventolin 2.5 mg INHALATION RT-TID PRN 07/27/22 01/17/24 Nebulized] Fluticasone/Umeclidin/Vilanter 1 puff INHALATION RT-DAILY 11/14/22 01/17/24 [Trelegy Ellipta 100-62.5-25] Memantine [Namenda] 10 mg PO DAILY 04/22/23 01/17/24 traMADol HCl [Ultram] 50 mg PO BID PRN 04/22/23 01/17/24 Acetaminophen [Tylenol 8 Hour] 650 mg PO Q8H PRN 01/17/24 01/17/24 Albuterol Inhaler [Ventolin Hfa 1 - 2 puff INHALATION RT-Q4H PRN 01/17/24 01/17/24 Inhaler] Propranolol [Inderal] 10 mg PO TID 01/17/24 01/17/24 Previous Rx's Medication Instructions Recorded ALPRAZolam [Xanax] 0.5 mg PO BID PRN #6 tab 01/04/23 Apixaban [Eliquis] 2.5 mg PO BID 30 Days #60 tab 10/16/23 Allergies Allergy/AdvReac Type Severity Reaction Status Date / Time budesonide [From Symbicort] Allergy Unknown Verified 01/17/24 16:40 formoterol [From Symbicort] Allergy Unknown Verified 02/29/24 06:37 gabapentin Allergy Unknown Verified 02/29/24 06:37 ibuprofen Allergy Unknown Verified 02/29/24 06:37 Iodinated Contrast Media Allergy Unknown Verified 02/29/24 06:37 [Iodinated Contrast- Oral and IV Dye] iodine Allergy Rash/Hives Verified 02/29/24 06:37 Sulfa (Sulfonamide Allergy Rash/Hives Verified 02/29/24 06:37 Antibiotics) topiramate [From Topamax] Allergy Unknown Verified 02/29/24 06:37 lorazepam [From Ativan] AdvReac Hallucinati Verified 02/29/24 06:37 ons prednisone AdvReac dizziness Verified 02/29/24 06:37 zolpidem tartrate AdvReac Hallucinati Verified 02/29/24 06:37 [From Ambien] ons Review of Systems ROS Statement: Those systems with pertinent positive or pertinent negative responses have been documented in the HPI. ROS Other: All systems not noted in ROS Statement are negative. Past Medical History Past Medical History: Atrial Fibrillation, Asthma, COPD, CVA/TIA, Eye Disorder, GERD/Reflux, Hyperlipidemia, Pneumonia Additional Past Medical History / Comment(s): Chronic atrial fibrillation per PMH but pt has no recollection of this, bronchiectasis, essential tremors, previous TIA, chronic lumbar back pain, past 6 months R shoulder/cervical pain, balance difficulty with falls, occasional low urinary output and uses lasix prn for this, bilateral varicose veins, dysphagia-able to take pills one at a time with water, small hiatal hernia, restless leg syndrome, seasonal ALLERGIES, History of Any Multi-Drug Resistant Organisms: MRSA Date of last positivie culture/infection: 03/22/23 MDRO Source:: Left Heel Past Surgical History: Hysterectomy Additional Past Surgical History / Comment(s): 11/27/15 EGD with bx, bilateral cataracts removed with lens implants, colonoscopy with 1 benign polypectomy. Past Anesthesia/Blood Transfusion Reactions: No Reported Reaction Past Psychological History: Anxiety, Depression Smoking Status: Current some day smoker Past Alcohol Use History: None Reported Past Drug Use History: None Reported - Past Family History Father Family Medical History: Cancer Additional Family Medical History / Comment(s): Pt thinks father might have from stomach cancer. She was 2 yrs old when he . Sister(s) Family Medical History: Cancer Additional Family Medical History / Comment(s): Half sister with brain cancer. Mother Family Medical History: Dementia Additional Family Medical History / Comment(s): Mother had gallstones and a partial thyroidectomy for noncancerous reasons. General Exam Limitations: no limitations General appearance: alert, in no apparent distress Head exam: Present: atraumatic, normocephalic, normal inspection Eye exam: Present: normal appearance, PERRL, EOMI. Absent: scleral icterus, conjunctival injection, periorbital swelling ENT exam: Present: normal exam, normal oropharynx, mucous membranes moist Neck exam: Present: normal inspection. Absent: tenderness, meningismus, full ROM (C-collar), lymphadenopathy Respiratory exam: Present: normal lung sounds bilaterally. Absent: respiratory distress, wheezes, rales, rhonchi, stridor Cardiovascular Exam: Present: regular rate, normal rhythm, normal heart sounds. Absent: systolic murmur, diastolic murmur, rubs, gallop, clicks GI/Abdominal exam: Present: soft, normal bowel sounds. Absent: distended, tenderness, guarding, rebound, rigid Extremities exam: Present: normal inspection, full ROM, normal capillary refill. Absent: tenderness, pedal edema, joint swelling, calf tenderness Back exam: Present: normal inspection Neurological exam: Present: alert, oriented X3, CN II-XII intact Psychiatric exam: Present: normal affect, normal mood Skin exam: Present: warm, dry, intact, normal color. Absent: rash Course Vital Signs 02/29/24 06:31 Temperature 98.0 F Pulse Rate 62 Respiratory 19 Rate Blood Pressure 132/80 O2 Sat by Pulse 99 Oximetry Medical Decision Making - Medical Decision Making Was pt. sent in by a medical professional or institution (JEAN CLAUDE Childress, CONTINUOUS PICKLING LINE PICKLER HELPER, urgent care, hospital, or half-way...) When possible be specific @ -No Did you speak to anyone other than the patient for history (EMS, parent, family, police, friend...)? What history was obtained from this source @ -No Did you review nursing and triage notes (agree or disagree)? Why? @ -I reviewed and agree with nursing and triage notes Were old charts reviewed (outside hosp., previous admission, EMS record, old EKG, old radiological studies, urgent care reports/EKG's, half-way records)? Report findings @ -No old charts were reviewed Differential Diagnosis (chest pain, altered mental status, abdominal pain women, abdominal pain men, vaginal bleeding, weakness, fever, dyspnea, syncope, headache, dizziness, GI bleed, back pain, seizure, CVA, palpatations, mental health, musculoskeletal)? @ -Fall, intracranial hemorrhage, cervical fracture, skull fracture, laceration, extremity injury EKG interpreted by me (3pts min.). @ -None X-rays interpreted by me (1pt min.). @ -None done CT interpreted by me (1pt min.). @ -CT brain, C-spine showing degenerative changes of the cervical spine no acute intracranial hemorrhage, mass effect no c skull fracture U/S interpreted by me (1pt. min.). @ -None done What testing was considered but not performed or refused? (CT, X-rays, U/S, labs)? Why? @ -None What meds were considered but not given or refused? Why? @ -None Did you discuss the management of the patient with other professionals (professionals i.e. , PA, CONTINUOUS PICKLING LINE PICKLER HELPER, lab, RT, psych nurse, adoption social worker, toxicology supervisor, teacher, weapons electrical engineering officer, disease case manager rn)? Give summary @ -No Was smoking cessation discussed for >3mins.? @ -No Was critical care preformed (if so, how long)? @ -No Were there social determinants of health that impacted care today? How? (Homelessness, low income, unemployed, alcoholism, drug addiction, transportation, low edu. Level, literacy, decrease access to med. care, longterm, rehab)? @ -No Was there de-escalation of care discussed even if they declined (Discuss DNR or withdrawal of care, Hospice)? DNR status @ -No What co-morbidities impacted this encounter? (DM, HTN, Smoking, COPD, CAD, Cancer, CVA, ARF, Chemo, Hep., AIDS, mental health diagnosis, sleep apnea, morbid obesity)? @ -Dementia, A-fib Was patient admitted / discharged? Hospital course, mention meds given and route, prescriptions, significant lab abnormalities, going to OR and other pertinent info. @ -Discharge patient CT does not show any acute changes. Patient has no other complaints patient is at current baseline. Patient discharged in stable condition return parameters remy. Undiagnosed new problem with uncertain prognosis? @ -No Drug Therapy requiring intensive monitoring for toxicity (Heparin, Nitro, Insulin, Cardizem)? @ -No Were any procedures done? @ -No Diagnosis/symptom? @ -Fall, closed head injury Acute, or Chronic, or Acute on Chronic? @ -Acute Uncomplicated (without systemic symptoms) or Complicated (systemic symptoms)? @ -Uncomplicated Side effects of treatment? @ -No Exacerbation, Progression, or Severe Exacerbation? @ -No Poses a threat to life or bodily function? How? (Chest pain, [place], [place], pneumonia, PE, COPD, DKA, ARF, appy, cholecystitis, CVA, Diverticulitis, Homicidal, Suicidal, threat to staff... and all critical care pts) @ -No Disposition Clinical Impression: Fall, Closed head injury Disposition: HOME SELF-CARE Condition: Stable Instructions (If sedation given, give patient instructions): Head Injury (ED) Additional Instructions: Please return to the Emergency Department if symptoms worsen or any other concerns. Is patient prescribed a controlled substance at d/c from ED?: No Referrals: Pablo De La Garza DO [Primary Care Provider] - 1-2 days Time of Disposition: 07:33
--- NOTE | 2024-02-29 07:26 | CT ---
EXAMINATION TYPE: CT brain javan rodrigez DATE OF EXAM: 02/29/2024 6:58 AM COMPARISON: None. CLINICAL INDICATION: Female, 83 years old with history of fall, pain, Pt fell at home unwitnessed. hx dementia and chronic pain. Pt on blood thinners last refill october with 30 day supple. TECHNIQUE: CT of the brain is performed utilizing 3 mm thick sections through the posterior fossa and 3 mm thick sections through the remaining calvarium. Study is performed within 24 hours of arrival to the hospital. Contrast used: mL of , (none if empty) Oral contrast used: (none if empty) CT DLP: 1214.5 mGycm, Automated exposure control for dose reduction was used. FINDINGS: No abnormal hyperdensity is present to suggest an acute intracranial hemorrhage. No mass lesion is evident. No acute infarcts are evident. Periventricular white matter hypodensity is present, likely on the ba sis of chronic white matter changes. Ventricles and sulci are prominent for the patient age. Paranasal sinuses and mastoid air cells within the [id number] are clear. IMPRESSIONS: 1. No acute intracranial process. Follow-up MRI can be performed as clinically indicated. 2. Atrophy with chronic appearing periventricular white matter ischemic changes. CT cervical spine. COMPARISON: None TECHNIQUE: CT of the cervical spine is performed in the axial plane at 2 mm thick sections. Reconstr ucted images in the coronal, and sagittal plane are reviewed on the computer. FINDINGS: No acute fractures are evident. Vertebral body alignment is normal. There is loss of disc height at C3-4 C5-6. Milder disc narrowing is present C4-5. Vertebral body heights are preserved. No spinal canal stenosis is evident. No neural foraminal stenosis is evident. IMPRESSION: 1. No acute osseous abnormality cervical spine. 2. Degenerative disc changes greatest C3-4 and C5-6. [facility], , 02/29/2024 7:24 AM
[2024-02-29 07:49] VITALS: BP 129/80; PULSE 77; RESP 16; TEMP 97.9
== END 2024-02-29 07:49 | disposition home or self-care (01) ==
LOC: EC 06:29
DX: S09.90XA Unspecified injury of head, initial encounter (principal); F03.90 Unspecified dementia, unspecified severity, without behavioral disturbance, psychotic disturbance, mood disturbance, and anxiety; I48.20 Chronic atrial fibrillation, unspecified; F17.200 Nicotine dependence, unspecified, uncomplicated; Z88.1 Allergy status to other antibiotic agents; Z88.2 Allergy status to sulfonamides; Z88.8 Allergy status to other drugs, medicaments and biological substances; Z91.041 Radiographic dye allergy status; Z86.73 Personal history of transient ischemic attack (TIA), and cerebral infarction without residual deficits; W01.10XA Fall on same level from slipping, tripping and stumbling with subsequent striking against unspecified object, initial encounter
CPT/HCPCS: 70450; 72125; 99284

== ENCOUNTER 2024-03-01 19:09 | Observation (INO) | payer MEDICARE ==
--- NOTE | 2024-03-01 19:41 | ED ---
General Adult HPI - General Chief complaint: Shortness of Breath Stated complaint: BARBIE Time Seen by Provider: 03/01/24 19:12 Source: patient, EMS Mode of arrival: EMS Limitations: no limitations - History of Present Illness Initial comments: Dictation was produced using [employer] dictation software. please excuse any grammatical, word or spelling errors. Chief Complaint: 83-year-old female presents to the emergency department for chest tightness and shortness of breath History of Present Illness: Patient is 83-year-old female she is a poor historian. She is brought in from home by EMS. History obtained from son over the phone who lives with the patient states that she was having some shortness of breath and chest tightness. EMS gave patient a breathing treatment. Patient denies any symptoms at the bedside. The ROS documented in this emergency department record has been reviewed and confirmed by me. Those systems with pertinent positive or negative responses have been documented in the HPI. All other systems are other negative and/or noncontributory. - Related Data Home Medications Medication Instructions Recorded Confirmed Omeprazole 40 mg PO DAILY 08/24/17 01/17/24 FLUoxetine HCL [PROzac] 40 mg PO DAILY 05/21/21 01/17/24 busPIRone HCl [Buspar] 5 mg PO BID 10/30/21 01/17/24 Albuterol Nebulized [Ventolin 2.5 mg INHALATION RT-TID PRN 07/27/22 01/17/24 Nebulized] Fluticasone/Umeclidin/Vilanter 1 puff INHALATION RT-DAILY 11/14/22 01/17/24 [Abi Donahue 100-62.5-25] Memantine [Namenda] 10 mg PO DAILY 04/22/23 01/17/24 traMADol HCl [Ultram] 50 mg PO BID PRN 04/22/23 01/17/24 Acetaminophen [Tylenol 8 Hour] 650 mg PO Q8H PRN 01/17/24 01/17/24 Albuterol Inhaler [Ventolin Hfa 1 - 2 puff INHALATION RT-Q4H PRN 01/17/24 01/17/24 Inhaler] Propranolol [Inderal] 10 mg PO TID 01/17/24 01/17/24 Previous Rx's Medication Instructions Recorded ALPRAZolam [Xanax] 0.5 mg PO BID PRN #6 tab 01/04/23 Apixaban [Eliquis] 2.5 mg PO BID 30 Days #60 tab 10/16/23 Allergies Allergy/AdvReac Type Severity Reaction Status Date / Time budesonide [From Symbicort] Allergy Unknown Verified 03/01/24 19:18 formoterol [From Symbicort] Allergy Unknown Verified 03/01/24 19:18 gabapentin Allergy Unknown Verified 03/01/24 19:18 ibuprofen Allergy Unknown Verified 03/01/24 19:18 Iodinated Contrast Media Allergy Unknown Verified 03/01/24 19:18 [Iodinated Contrast- Oral and IV Dye] iodine Allergy Rash/Hives Verified 03/01/24 19:18 Sulfa (Sulfonamide Allergy Rash/Hives Verified 03/01/24 19:18 Antibiotics) topiramate [From Topamax] Allergy Unknown Verified 03/01/24 19:18 lorazepam [From Ativan] AdvReac Hallucinati Verified 03/01/24 19:18 ons prednisone AdvReac dizziness Verified 03/01/24 19:18 zolpidem tartrate AdvReac Hallucinati Verified 03/01/24 19:18 [From Ambien] ons Review of Systems ROS Statement: Those systems with pertinent positive or pertinent negative responses have been documented in the HPI. ROS Other: All systems not noted in ROS Statement are negative. Past Medical History Past Medical History: Atrial Fibrillation, Asthma, COPD, CVA/TIA, Eye Disorder, GERD/Reflux, Hyperlipidemia, Pneumonia Additional Past Medical History / Comment(s): Chronic atrial fibrillation per PMH but pt has no recollection of this, bronchiectasis, essential tremors, previous TIA, chronic lumbar back pain, past 6 months R shoulder/cervical pain, balance difficulty with falls, occasional low urinary output and uses lasix prn for this, bilateral varicose veins, dysphagia-able to take pills one at a time with water, small hiatal hernia, restless leg syndrome, seasonal ALLERGIES, History of Any Multi-Drug Resistant Organisms: MRSA Date of last positivie culture/infection: 03/22/23 MDRO Source:: Left Heel Past Surgical History: Hysterectomy Additional Past Surgical History / Comment(s): 11/27/15 EGD with bx, bilateral cataracts removed with lens implants, colonoscopy with 1 benign polypectomy. Past Anesthesia/Blood Transfusion Reactions: No Reported Reaction Past Psychological History: Anxiety, Depression Smoking Status: Current some day smoker Past Alcohol Use History: None Reported Past Drug Use History: None Reported - Past Family History Father Family Medical History: Cancer Additional Family Medical History / Comment(s): Pt thinks father might have from stomach cancer. She was 2 yrs old when he . Sister(s) Family Medical History: Cancer Additional Family Medical History / Comment(s): Half sister with brain cancer. Mother Family Medical History: Dementia Additional Family Medical History / Comment(s): Mother had gallstones and a partial thyroidectomy for noncancerous reasons. General Exam - General Exam Comments Initial Comments: PHYSICAL EXAM: General Impression: Alert and oriented x2/4, not in acute distress HEENT: Normocephalic atraumatic, extra-ocular movements intact, pupils equal and reactive to light bilaterally, mucous membranes moist. Cardiovascular: Heart regular rate and rhythm Chest: Able to complete full sentences, no retractions, no tachypnea Abdomen: abdomen soft, non-tender, non-distended, no organomegaly Musculoskeletal: Pulses present and equal in all extremities, no peripheral edema Motor: no focal deficits noted Neurological: CN II-XII grossly intact, no focal motor or sensory deficits noted Skin: Intact with no visualized rashes Psych: Normal affect and mood Limitations: no limitations Course Vital Signs 03/01/24 19:18 Temperature 97.4 F L Pulse Rate 61 Respiratory 18 Rate Blood Pressure 107/70 O2 Sat by Pulse 97 Oximetry EKG Findings - EKG Comments: EKG Findings:: My EKG interpretation: Ventricular rate 57, sinus bradycardia, DC interval 150, QRS 80, QTc 437. No DC prolongation, no QTC prolongation, no ST or T-wave changes noted. Overall, this EKG is unremarkable Medical Decision Making - Medical Decision Making Was pt. sent in by a medical professional or institution (, PA, SUSPENDER CUTTER, urgent care, hospital, or usp...) When possible be specific @ -No Did you speak to anyone other than the patient for history (EMS, parent, family, police, friend...)? What history was obtained from this source @ -See above Did you review nursing and triage notes (agree or disagree)? Why? @ -I reviewed and agree with nursing and triage notes Were old charts reviewed (outside hosp., previous admission, EMS record, old EKG, old radiological studies, urgent care reports/EKG's, usp records)? Report findings @ -No old charts were reviewed Differential Diagnosis (chest pain, altered mental status, abdominal pain women, abdominal pain men, vaginal bleeding, musculoskeletal, weakness, fever, dyspnea, syncope, headache, dizziness, GI bleed, back pain, seizure, CVA, palpatations, mental health)? @ -Differential Chest Pain: Stable Angina, Unstable Angina, STEMI, NSTEMI Aortic Dissection, Pneumothorax, Musculoskeletal, Esophageal Spasm GERD, Cholecystitis, Pancreatitis, Zoster, th is is not meant to be an all-inclusive list. EKG interpreted by me (3pts min.). @ -See above X-rays interpreted by me (1pt min.). @ -Chest x-ray is nonacute CT interpreted by me (1pt min.). @ -None done U/S interpreted by me (1pt. min.). @ -None done What testing was considered but not performed or refused? (CT, X-rays, U/S, labs)? Why? @ -None What meds were considered but not given or refused? Why? @ -None Was smoking cessation discussed for >3mins.? @ -No Were there social determinants of health that impacted care today? How? (Homelessness, low income, unemployed, alcoholism, drug addiction, transportation, low edu. Level, literacy, decrease access to med. care, fpc, rehab)? @ -No Was there de-escalation of care discussed even if they declined (Discuss DNR or withdrawal of care, Hospice)? DNR status @ -No What co-morbidities impacted this encounter? (DM, HTN, Smoking, COPD, CAD, Cancer, CVA, ARF, Chemo, Hep., AIDS, mental health diagnosis, sleep apnea, morbid obesity)? @ -COPD, old age Was patient admitted / discharged? Hospital course, mention meds given and route, prescriptions, significant lab abnormalities, going to OR and other pertinent info. @ -83-year-old female who is a poor historian presents to the ER after having complained of some chest tightness shortness of breath at home. Vital signs are stable. EKG is unremarkable. Labs are unremarkable. Troponin is negative. Clinical presentation concerning for acute coronary syndrome. Reevaluated beds william 8:36 PM found to be stable to condition. Patient will be admitted to observation. Case discussed with hospitalist for admission Did you discuss the management of the patient with other professionals (professionals i.e. , PA, SUSPENDER CUTTER, lab, RT, psych nurse, social media job titles, clinical quality assurance associate, teacher, affirmative action officer, rn case manager hospice)? Give summary @ -See above Was critical care preformed (if so, how long)? @ -No Undiagnosed new problem with uncertain prognosis? @ -No Drug Therapy requiring intensive monitoring for toxicity (Heparin, Nitro, Insulin, Cardizem)? @ -No Were any procedures done? @ -No Diagnosis/symptom? Acute, or Chronic, or Acute on Chronic? Uncomplicated (without systemic symptoms) or Complicated (systemic symptoms)? @ -Chest pain Side effects of treatment? @ -No Exacerbation, Progression, or Severe Exacerbation? @ -No Poses a threat to life or bodily function? How? (Chest pain, USA, CT, pneumonia, PE, COPD, DKA, ARF, appy, cholecystitis, CVA, Diverticulitis, Homicidal, Suici saleem, threat to staff... and all critical care pts) @ -yes - Lab Data Result diagrams: 03/01/24 19:47 03/01/24 19:47 Lab Results 03/01/24 03/01/24 03/01/24 Range/Units 19:47 19:47 19:47 WBC 5.4 (3.8-10.6) k/uL RBC 3.86 (3.80-5.40) m/uL Hgb 11.6 (11.4-16.0) gm/dL Hct 34.7 (34.0-46.0) % MCV 90.1 (80.0-100.0) fL MCH 30.0 (25.0-35.0) pg MCHC 33.3 (31.0-37.0) g/dL RDW 13.9 (11.5-15.5) % Plt Count 221 (150-450) k/uL MPV 7.9 Neutrophils % 46 % Lymphocytes % 39 % Monocytes % 8 % Eosinophils % 3 % Basophils % 0 % Neutrophils # 2.5 (1.3-7.7) k/uL Lymphocytes # 2.1 (1.0-4.8) k/uL Monocytes # 0.5 (0-1.0) k/uL Eosinophils # 0.2 (0-0.7) k/uL Basophils # 0.0 (0-0.2) k/uL PT 10.5 (10.0-12.5) sec INR 0.9 (<1.2) APTT 22.5 (22.0-30.0) sec Sodium 138 (137-145) mmol/L Potassium 3.8 (3.5-5.1) mmol/L Chloride 107 (98-107) mmol/L Carbon Dioxide 29 (22-30) mmol/L Anion Gap 2 mmol/L BUN 16 (7-17) mg/dL Creatinine 0.74 (0.52-1.04) mg/dL Est GFR (CKD-EPI)AfAm 87 (>60 ml/min/1.73 sqM) Est GFR (CKD-EPI)NonAf 76 (>60 ml/min/1.73 sqM) Glucose 92 (74-99) mg/dL Plasma Lactic Acid Osmel (0.7-2.0) mmol/L Calcium 8.6 (8.4-10.2) mg/dL Troponin I (0.000-0.034) ng/mL NT-Pro-B Natriuret Pep 63 pg/mL 03/01/24 03/01/24 Range/Units 19:47 19:47 WBC (3.8-10.6) k/uL RBC (3.80-5.40) m/uL Hgb (11.4-16.0) gm/dL Hct (34.0-46.0) % MCV (80.0-100.0) fL MCH (25.0-35.0) pg MCHC (31.0-37.0) g/dL RDW (11.5-15.5) % Plt Count (150-450) k/uL MPV Neutrophils % % Lymphocytes % % Monocytes % % Eosinophils % % Basophils % % Neutrophils # (1.3-7.7) k/uL Lymphocytes # (1.0-4.8) k/uL Monocytes # (0-1.0) k/uL Eosinophils # (0-0.7) k/uL Basophils # (0-0.2) k/uL PT (10.0-12.5) sec INR (<1.2) APTT (22.0-30.0) sec Sodium (137-145) mmol/L Potassium (3.5-5.1) mmol/L Chloride (98-107) mmol/L Carbon Dioxide (22-30) mmol/L Anion Gap mmol/L BUN (7-17) mg/dL Creatinine (0.52-1.04) mg/dL Est GFR (CKD-EPI)AfAm (>60 ml/min/1.73 sqM) Est GFR (CKD-EPI)NonAf (>60 ml/min/1.73 sqM) Glucose (74-99) mg/dL Plasma Lactic Acid Osmel 1.4 (0.7-2.0) mmol/L Calcium (8.4-10.2) mg/dL Troponin I <0.012 (0.000-0.034) ng/mL NT-Pro-B Natriuret Pep pg/mL Disposition Clinical Impression: Chest pain Disposition: ADMITTED IP TO THIS HOSP Condition: Fair Referrals: Pablo De La Garza DO [Primary Care Provider] - 1-2 days Decision Time: 20:36
[2024-03-01 19:57] LABS: Basophils % (A) 0 %; Eosinophils # (A) 0.2 k/uL (0-0.7); Eosinophils % (A) 3 %; HCT 34.7 % (34.0-46.0); HGB 11.6 gm/dL (11.4-16.0); Lymphocytes # (A) 2.1 k/uL (1.0-4.8); Lymphocytes % (A) 39 %; MCHC 33.3 g/dL (31.0-37.0); MCV 90.1 fL (80.0-100.0); Mean Platelet Volume 7.9; Monocytes # (A) 0.5 k/uL (0-1.0); Monocytes % (A) 8 %; Neutrophils # (A) 2.5 k/uL (1.3-7.7); Neutrophils % (A) 46 %; Platelet Count 221 k/uL (150-450); RBC 3.86 m/uL (3.80-5.40); RDW 13.9 % (11.5-15.5); WBC 5.4 k/uL (3.8-10.6)
[2024-03-01 20:10] LABS: INR 0.9 (<1.2); Partial Thromboplastin Time 22.5 sec (22.0-30.0); Prothrombin Time 10.5 sec (10.0-12.5)
[2024-03-01 20:16] LABS: African American GFR (CKD) 87 (>60 ml/min/1.73 sqM); Anion Gap 2 mmol/L; Blood Urea Nitrogen 16 mg/dL (7-17); Calcium 8.6 mg/dL (8.4-10.2); Carbon Dioxide 29 mmol/L (22-30); Chloride 107 mmol/L (98-107); Glucose 92 mg/dL (74-99); Non-African American GFR(CKD) 76 (>60 ml/min/1.73 sqM); Potassium 3.8 mmol/L (3.5-5.1); Sodium 138 mmol/L (137-145)
[2024-03-01 20:26] LABS: NT-Pro-B-Type Natriuretic Pept 63 pg/mL
--- NOTE | 2024-03-01 20:32 | XR ---
EXAMINATION TYPE: XR chest 2V DATE OF EXAM: 03/01/2024 7:58 PM COMPARISON: Chest radiographs from 02/11/2024 CLINICAL INDICATION: Female, 83 years old with history of chest pain, sob; TECHNIQUE: XR chest 2V Frontal and lateral views of the chest. FINDINGS: Lungs/Pleura: There is flattening of the diaphragm with increased lucency of the lungs. No evidence o f pneumothorax, pleural effusion or focal consolidation. Pulmonary vascularity: Unremarkable. Heart/mediastinum: Cardiomediastinal silhouette is unremarkable. Musculoskeletal: No acute osseous pathology. IMPRESSION: 1. No acute cardiopulmonary disease process. 2. COPD changes. [facility], , 03/01/2024 8:30 PM
[2024-03-01] MEDS ORDERED: NITROGLYCERIN SL TABS 0.4 MG TAB SUBLINGUAL PRN (20:33)
[2024-03-01] MEDS: ASPIRIN 81 MG PO STA (21:48)
--- NOTE | 2024-03-02 00:47 | P.HPIM ---
History of Present Illness H&P Date: 03/01/24 History of present illness; 83-year-old female with past medical history sig nificant for known atrial fibrillation anticoagulated on Eliquis, asthma, COPD on 5L [place] oxygen at home continuously, CVA/TIA, GERD, hyperlipidemia, chronic and ongoing tobacco dependence. She herself is a poor historian, she was brought from home by EMS. Per the emergency department history was obtained from the son over the phone who lives with the patient, stated that she was having some shortness of breath with associated chest tightness. EMS gave the patient a breathing treatment. Patient is a poor historian however she states she currently has no pain, resting comfortably in bed while wearing 2 L nasal cannula. States that she has no current chest pain however feels as though the chest pain earlier was generalized substernally/epigastric, wrapping across the whole chest from right to left, and it would come and go without any radiation. She is unable to recall what she was doing when she first noticed that, however does state that nothing that she is aware of made the pain get any better or worse. Patient also couldn't quantify the pain. Reports feeling almost at baseline at the time of interivew. Did report chronic lower back pain. Labratory review: -WBCs 5.4, Hgb 11.6, hct 34.7, PLT 221; sodium 138, potassium 3.8, BUN 16, creatinine 0.74 -Troponin <0.012, proBNP 63 Imaging: -Chest x-ray done in the ER noted no acute cardiopulmonary disease process -EKG done in the ER showed heart rate of 57, with sinus bradycardia as well as septal myocardial infarction of indeterminate age; QTc 437 Vitals: -Blood pressure 100/83, heart rate 60, respiratory rate 19, saturating 96% on 2 L nasal cannula Patient admitted to internal medicine service REVIEW OF SYSTEMS: CONSTITUTIONAL: No fever, no malaise, no fatigue. Somewhat forgetful. HEENT: No recent visual problems or hearing problems. Denied any sore throat. CARDIOVASCULAR: No chest pain, orthopnea, PND, no palpitations, no syncope. PULMONARY: No shortness of breath, no cough, no hemoptysis. GASTROINTESTINAL: No diarrhea, no nausea, no vomiting, no abdominal pain. NEUROLOGICAL: No headaches, no weakness, no numbness. HEMATOLOGICAL: Denies any bleeding or petechiae. GENITOURINARY: Denies any burning micturition, frequency, or urgency. MUSCULOSKELETAL/RHEUMATOLOGICAL: Denies any joint pain, swelling, or any muscle pain. Describes worsening low back back. ENDOCRINE: Denies any polyuria or polydipsia. The rest of the 14-point review of systems is negative. PHYSICAL EXAMINATION: GENERAL: The patient is alert and oriented x2, not in any acute distress. Well developed, well nourished. HEENT: Pupils are round and equally reacting to light. EOMI. No scleral icterus. No conjunctival pallor. Normocephalic, atraumatic. No pharyngeal erythema. No thyromegaly. CARDIOVASCULAR: S1 and S2 present. No murmurs, rubs, or gallops. PULMONARY: Chest is clear to auscultation, no wheezing or crackles. ABDOMEN: Soft, nontender, nondistended, normoactive bowel sounds. No palpable organomegaly. MUSCULOSKELETAL: No joint swelling or deformity. EXTREMITIES: No cyanosis, clubbing, or pedal edema. Varicose veins noted bilaterally. NEUROLOGICAL: Gross neurological examination did not reveal any focal deficits. SKIN: No rashes. Assessment and plan # Atypical chest/epigastric discomfort, r/o ACS -Trend troponin -Given Aspirin 324 once in ED, c/w Aspirin 325 daily -Initiate Lipitor -Nitrostat for chest pain -Most recent echocardiogram completed in December 2022 showed an ejection fraction 50-55%; left ventricular systolic function borderline normal, moderate mitral and mild tricuspid regurgitation -Continue telemetry monitoring -Cardiology consulted #COPD maintained on home oxygen (5 L/min NC) -Continue medications when verified by pharmacy -Continue supplemental NC oxygen #Weakness -States she feels unstable while walking at home -Physical therapy consulted #Low back pain, chronic, likely secondary to multiple compression fractures -First noted on x-ray thoracic spine 11/29/2021 -Noted to have remained unchanged and subsequent imaging -During previous stay (04/23/2023) at this facility orthopedic surgery was consulted secondary to these compression fractures, at that time patient refused the consult #Atrial Fibrillation anticoagulated on Eliquis -Continue home medication once verified by pharmacy #GERD -Continue home medication once verified by pharmacy #Hyperlipidemia -Continue home medication once verified by pharmacy GI prohylaxis: Not indicated; maintained at home on protonix 40 mg daily DVT prophylaxis: Eliquis Dictation was produced using [employer] dictation software. please excuse any grammatical, word or spelling errors. Past Medical History Past Medical History: Atrial Fibrillation, Asthma, COPD, CVA/TIA, Eye Disorder, GERD/Reflux, Hyperlipidemia, Pneumonia Additional Past Medical History / Comment(s): Chronic atrial fibrillation per PMH but pt has no recollection of this, bronchiectasis, essential tremors, previous TIA, chronic lumbar back pain, past 6 months R shoulder/cervical pain, balance difficulty with falls, occasional low urinary output and uses lasix prn for this, bilateral varicose veins, dysphagia-able to take pills one at a time with water, small hiatal hernia, restless leg syndrome, seasonal ALLERGIES, History of Any Multi-Drug Resistant Organisms: MRSA Date of last positivie culture/infection: 03/22/23 MDRO Source:: Left Heel Past Surgical History: Hysterectomy Additional Past Surgical History / Comment(s): 11/27/15 EGD with bx, bilateral cataracts removed with lens implants, colonoscopy with 1 benign polypectomy. Past Anesthesia/Blood Transfusion Reactions: No Reported Reaction Past Psychological History: Anxiety, Depression Smoking Status: Current some day smoker Past Alcohol Use History: None Reported Past Drug Use History: None Reported - Past Family History Father Family Medical History: Cancer Additional Family Medical History / Comment(s): Pt thinks father might have from stomach cancer. She was 2 yrs old when he . Sister(s) Family Medical History: Cancer Additional Family Medical History / Comment(s): Half sister with brain cancer. Mother Family Medical History: Dementia Additional Family Medical History / Comment(s): Mother had gallstones and a partial thyroidectomy for noncancerous reasons. Medications and Allergies Home Medications Medication Instructions Recorded Confirmed Type Omeprazole 40 mg PO DAILY 08/24/17 01/17/24 History FLUoxetine HCL [PROzac] 40 mg PO DAILY 05/21/21 01/17/24 History busPIRone HCl [Buspar] 5 mg PO BID 10/30/21 01/17/24 History Albuterol Nebulized [Ventolin 2.5 mg INHALATION RT-TID PRN 07/27/22 01/17/24 History Nebulized] Fluticasone/Umeclidin/Vilanter 1 puff INHALATION RT-DAILY 11/14/22 01/17/24 History [Trelegy Ellipta 100-62.5-25] ALPRAZolam [Xanax] 0.5 mg PO BID PRN #6 tab 01/04/23 01/17/24 Rx Memantine [Namenda] 10 mg PO DAILY 04/22/23 01/17/24 History traMADol HCl [Ultram] 50 mg PO BID PRN 04/22/23 01/17/24 History Apixaban [Eliquis] 2.5 mg PO BID 30 Days #60 tab 10/16/23 01/17/24 Rx Acetaminophen [Tylenol 8 Hour] 650 mg PO Q8H PRN 01/17/24 01/17/24 History Albuterol Inhaler [Ventolin Hfa 1 - 2 puff INHALATION RT-Q4H PRN 01/17/24 History Inhaler] Propranolol [Inderal] 10 mg PO TID 01/17/24 01/17/24 History Allergies Allergy/AdvReac Type Severity Reaction Status Date / Time budesonide [From Symbicort] Allergy Unknown Verified 03/01/24 19:18 formoterol [From Symbicort] Allergy Unknown Verified 03/01/24 19:18 gabapentin Allergy Unknown Verified 03/01/24 19:18 ibuprofen Allergy Unknown Verified 03/01/24 19:18 Iodinated Contrast Media Allergy Unknown Verified 03/01/24 19:18 [Iodinated Contrast- Oral and IV Dye] iodine Allergy Rash/Hives Verified 03/01/24 19:18 Sulfa (Sulfonamide Allergy Rash/Hives Verified 03/01/24 19:18 Antibiotics) topiramate [From Topamax] Allergy Unknown Verified 03/01/24 19:18 lorazepam [From Ativan] AdvReac Hallucinati Verified 03/01/24 19:18 ons prednisone AdvReac dizziness Verified 03/01/24 19:18 zolpidem tartrate AdvReac Hallucinati Verified 03/01/24 19:18 [From Ambien] ons Physical Exam Vitals: Vital Signs Temp Pulse Resp BP Pulse Ox 03/01/24 20:50 60 19 100/83 96 03/01/24 19:18 97.4 F L 61 18 107/70 97 Intake and Output 03/01/24 03/01/24 03/01/24 06:59 14:59 22:59 Other: Weight 54.431 kg Results CBC & Chem 7: 03/01/24 19:47 03/01/24 19:47
[2024-03-02] MEDS ORDERED: traMADol 50 MG TAB PO PRN (07:23)
[2024-03-02] MEDS: SYMBICORT 80-4.5 MCG INHALER INHALATION SCH (09:02)
[2024-03-02] MEDS: IPRATROPIUM 0.5 MG/2.5 ML NEBU INHALATION SCH (09:02)
--- NOTE | 2024-03-02 09:10 | P.PN ---
Subjective Progress Note Date: 03/02/24 83-year-old female with past medical history significant for known atrial fibrillation anticoagulated on Eliquis, asthma, COPD on 5L [place] oxygen at home continuously, CVA/TIA, GERD, hyperlipidemia, chronic and ongoing tobacco dependence presents to the ED for shortness of breath and chest pain. In the ED she underwent extensive evaluation. Blood pressure 100/83, heart rate 60, respiratory rate 19, saturating 96% on 2 L nasal cannula. WBCs 5.4, Hgb 11.6, hct 34.7, PLT 221; sodium 138, potassium 3.8, BUN 16, creatinine 0.74. Troponin <0.012 x 3, proBNP 63. Chest x-ray done in the ER noted no acute cardiopulmonary disease process. EKG done in the ER showed heart rate of 57, with sinus bradycardia with Q waves in V1 V2. Patient is admitted for chest pain, rule out ACS and Cardiology consult. 03/02 Patient was seen and examined. She reports feeling startled after being woken up. Patient is not able to describe her chest pain clearly. Troponin < 0.012 x 3 and BNP is 63. CXR as above is negative for acute process. General: non toxic, no distress, appears at stated age Derm: no unusual rashes/lesions, warm Head: atraumatic, normocephalic, symmetric Eyes: EOMI, no lid lag, anicteric sclera ENT: Nose and ears atraumatic Neck: No cervical lymphadenopathy, trachea midline, supple Mouth: no lip lesion, mucus membranes moist Cardiovascular: S1S2 reg, no murmur Lungs: Decreased BS bilateral, no rhonchi, no rales, no accessory muscle use Ext: no gross muscle atrophy, no contractures Neuro: Intention tremor upper extremities Psych: Anxious Based on my assessment of this patient, this patient meets a high complexity level of care. Chest pain: ACS ruled out. Cardiology consulted. Echo ordered. Telemetry monitoring. Chronic respiratory failure secondary to COPD not in acute exacerbation: Albut isabelle neb PRN for SOB/wheezing. Lower back pain secondary to multiple compression fractures Atrial fibrillation: Eliquis 2.5 mg PO BID. Propranolol 10 mg PO TID. GERD: Protonix 40 mg PO QD. HLD: Lipitor 40 mg PO QHS. Anxiety: Buspar 5 mg PO BID. Prozac 40 mg PO QD. Dementia: Memantine 10 mg PO QD. CODE STATUS: FULL CODE DVT Prophylaxis: Eliquis GI Prophylaxis: Protonix Designated medical POA if patient is not able to make medical decisions for themselves: I have reviewed the following independent beauty consultant notes: I have reviewed the results of the following tests: Trop x 2. I have ordered the following tests: Echo I have discussed the care of this patient with the following independent historian: I have independently interpreted the following test below: I have discussed the management of this patient with the following physician: Objective - Vital Signs Vital signs: Vital Signs Temp 97.4 F L 03/01/24 19:18 Pulse 67 03/02/24 08:40 Resp 22 03/02/24 08:40 BP 100/48 03/02/24 08:40 Pulse Ox 92 L 03/02/24 08:40 FiO2 Intake & Output 03/01/24 03/02/24 03/02/24 18:59 06:59 18:59 Output Total 200 Balance -200 Weight 54.431 kg Output: Urine 200 Other: # Voids 2 - Labs CBC & Chem 7: 03/01/24 19:47 03/01/24 19:47
[2024-03-02] MEDS: FLUoxetine HCL 20 MG CAP PO SCH (09:34)
[2024-03-02] MEDS: PANTOPRAZOLE 40 MG TABLET PO SCH (09:35)
[2024-03-02] MEDS: ASPIRIN 325 MG TAB PO SCH (09:36)
[2024-03-02] MEDS: APIXABAN 2.5 MG TABLET PO SCH (09:37)
[2024-03-02] MEDS: busPIRone HCl 5 MG TAB PO SCH (09:37)
[2024-03-02] MEDS: MEMANTINE 10 MG TAB PO SCH (09:37)
[2024-03-02] MEDS: PROPRANOLOL 10 MG TAB PO SCH (09:38)
[2024-03-02 13:08] LABS: HDL Cholesterol 47.4 mg/dL (40.00-60.00)
--- NOTE | 2024-03-02 13:40 | P.CRDCN ---
History of Present Illness Consult date: 03/02/24 History of present illness: HISTORY OF PRESENTING ILLNESS 83-year-old female with past medical history of paroxysmal atrial fibrillation on anticoagulation with Eliquis, asthma, COPD with chronic hypoxia on 5 L oxygen, CVA/TIA, GERD, dyslipidemia, ongoing tobacco dependence. Patient is a poor historian because of significant hearing impairment. She was brought to the hospital because of increased worsening breathing and some substernal chest tightness. On admission her labs shows troponin that were negative x 3, NT-proBNP was not elevated, chest x-ray did not show any significant acute cardiopulmonary process including no significant pulmonary congestion or consolidation. BP 100/83, heart rate 60s. On telemetry shows sinus rhythm. Home medication aspirin, Eliquis 2.5, Lipitor 40 mg REVIEW OF SYSTEMS 14 point review of system is negative except what is mentioned above in HPI. PHYSICAL EXAMINATION Vital signs reviewed. Head: Normocephalic. Eyes: Sclerae nonicteric. Neck: Brisk carotid upstroke, no jugular venous distention. Lungs: Diminished breath sounds with poor inspiratory effort. No significant crackles. Mild wheezing audible heart: Regular rate and rhythm, S1-S2 mild systolic murmur Abdomen: Soft nontender, positive bowel sounds. Extremities: No edema, intact distal pulses. Neuro: Alert, oritented, no focal deficits. Detailed neuro exam was not performed. ASSESSMENT Respiratory distress and dyspnea on exertion, likely due to below Substernal chest pressure, most likely because of mild COPD exacerbation. Paroxysmal atrial fibrillation, currently in sinus rhythm Moderate MR and moderate TR History of CVA/TIA Tobacco smoker Debility and frailty Chronic hypoxia on 5 L oxygen Last echo from December 2022 shows EF of 50 to 55%, mild concentric LVH, moderate mitral regurgitation, moderate tricuspid regurgitation. PLAN Continue aspirin, Eliquis 2.5 mg twice daily, Continue Lipitor 40 mg daily Obtain updated echocardiogram. Juve Polanco MD, FACC, RPVI Thank you for allowing [facility] to participate in this patient's care. Feel free to reach out in case of any followup questions. Past Medical History Past Medical History: Atrial Fibrillation, Asthma, COPD, CVA/TIA, Eye Disorder, GERD/Reflux, Hyperlipidemia, Pneumonia Additional Past Medical History / Comment(s): Chronic atrial fibrillation per PMH but pt has no recollection of this, bronchiectasis, essential tremors, previous TIA, chronic lumbar back pain, past 6 months R shoulder/cervical pain, balance difficulty with falls, occasional low urinary output and uses lasix prn for this, bilateral varicose veins, dysphagia-able to take pills one at a time with water, small hiatal hernia, restless leg syndrome, seasonal ALLERGIES, History of Any Multi-Drug Resistant Organisms: MRSA Date of last positivie culture/infection: 03/22/23 MDRO Source:: Left Heel Past Surgical History: Hysterectomy Additional Past Surgical History / Comment(s): 11/27/15 EGD with bx, bilateral cataracts removed with lens implants, colonoscopy with 1 benign polypectomy. Past Anesthesia/Blood Transfusion Reactions: No Reported Reaction Past Psychological History: Anxiety, Depression Smoking Status: Current some day smoker Past Alcohol Use History: None Reported Past Drug Use History: None Reported - Past Family History Father Family Medical History: Cancer Additional Family Medical History / Comment(s): Pt thinks father might have from stomach cancer. She was 2 yrs old when he . Sister(s) Family Medical History: Cancer Additional Family Medical History / Comment(s): Half sister with brain cancer. Mother Family Medical History: Dementia Additional Family Medical History / Comment(s): Mother had gallstones and a partial thyroidectomy for noncancerous reasons. Medications and Allergies Home Medications Medication Instructions Recorded Confirmed Type Omeprazole 40 mg PO DAILY 08/24/17 03/02/24 History FLUoxetine HCL [PROzac] 40 mg PO DAILY 05/21/21 03/02/24 History busPIRone HCl [Buspar] 5 mg PO BID 10/30/21 03/02/24 History Albuterol Nebulized [Ventolin 2.5 mg INHALATION RT-TID PRN 07/27/22 03/02/24 History Nebulized] Fluticasone/Umeclidin/Vilanter 1 puff INHALATION RT-DAILY 11/14/22 03/02/24 History [Trele[place] Ellipta 100-62.5-25] Memantine [Namenda] 10 mg PO DAILY 04/22/23 03/02/24 History traMADol HCl [Ultram] 50 mg PO BID PRN 04/22/23 03/02/24 History Apixaban [Eliquis] 2.5 mg PO BID 30 Days #60 tab 10/16/23 03/02/24 Rx Acetaminophen [Tylenol 8 Hour] 650 mg PO Q8H PRN 01/17/24 03/02/24 History Albuterol Inhaler [Ventolin Hfa 1 - 2 puff INHALATION RT-Q4H PRN 01/17/24 03/02/24 History Inhaler] Propranolol [Inderal] 10 mg PO TID 01/17/24 03/02/24 History ALPRAZolam [Xanax] 0.5 mg PO TID PRN 03/02/24 03/02/24 History Allergies Allergy/AdvReac Type Severity Reaction Status Date / Time budesonide [From Symbicort] Allergy Unknown Verified 03/02/24 08:58 formoterol [From Symbicort] Allergy Unknown Verified 03/02/24 08:58 gabapentin Allergy Unknown Verified 03/02/24 08:58 ibuprofen Allergy Unknown Verified 03/02/24 08:58 Iodinated Contrast Media Allergy Unknown Verified 03/02/24 08:58 [Iodinated Contrast- Oral and IV Dye] iodine Allergy Rash/Hives Verified 03/02/24 08:58 Sulfa (Sulfonamide Allergy Rash/Hives Verified 03/02/24 08:58 Antibiotics) topiramate [From Topamax] Allergy Unknown Verified 03/02/24 08:58 lorazepam [From Ativan] AdvReac Hallucinati Verified 03/02/24 08:58 ons prednisone AdvReac dizziness Verified 03/02/24 08:58 zolpidem tartrate AdvReac Hallucinati Verified 03/02/24 08:58 [From Ambien] ons Physical Exam Vitals: Vital Signs Temp Pulse Resp BP Pulse Ox 03/02/24 08:40 67 22 100/48 92 L 03/02/24 06:30 58 L 18 107/47 96 03/02/24 04:00 54 L 16 112/51 96 03/02/24 02:54 64 18 103/59 95 03/02/24 00:30 64 16 111/55 96 03/01/24 23:14 54 L 17 119/60 97 03/01/24 20:50 60 19 100/83 96 03/01/24 19:18 97.4 F L 61 18 107/70 97 Intake and Output 03/01/24 03/02/24 03/02/24 22:59 06:59 14:59 Output Total 200 Balance -200 Output: Urine 200 Other: # Voids 2 Weight 54.431 kg Results 03/01/24 19:47 03/01/24 19:47 Cardiac Enzymes 03/01/24 03/02/24 03/02/24 Range/Units 19:47 00:07 03:26 Troponin I <0.012 <0.012 <0.012 (0.000-0.034) ng/mL Coagulation 03/01/24 Range/Units 19:47 PT 10.5 (10.0-12.5) sec APTT 22.5 (22.0-30.0) sec Lipids 03/02/24 Range/Units 03:30 Triglycerides 115.00 (0.00-149.00) mg/dL Cholesterol 208.00 H (0.00-200.00) mg/dL HDL Cholesterol 47.40 (40.00-60.00) mg/dL CBC 03/01/24 Range/Units 19:47 WBC 5.4 (3.8-10.6) k/uL RBC 3.86 (3.80-5.40) m/uL Hgb 11.6 (11.4-16.0) gm/dL Hct 34.7 (34.0-46.0) % Plt Count 221 (150-450) k/uL Comprehensive Metabolic Panel 03/01/24 Range/Units 19:47 Sodium 138 (137-145) mmol/L Potassium 3.8 (3.5-5.1) mmol/L Chloride 107 (98-107) mmol/L Carbon Dioxide 29 (22-30) mmol/L BUN 16 (7-17) mg/dL Creatinine 0.74 (0.52-1.04) mg/dL Glucose 92 (74-99) mg/dL Calcium 8.6 (8.4-10.2) mg/dL Current Medications Generic Name Dose Route Start Last Admin Trade Name Freq PRN Reason Stop Dose Admin Albuterol Sulfate 2.5 mg 03/02/24 07:23 Albuterol Nebulized 2.5 Mg/3 Ml INHALATION RT-TID PRN Shortness Of Breath Alprazolam 0.5 mg 03/02/24 07:23 Alprazolam 0.5 Mg Tab PO BID PRN Anxiety Apixaban 2.5 mg 03/02/24 09:00 03/02/24 09:37 Apixaban 2.5 Mg Tablet PO 2.5 mg BID BA Administration Protocol Aspirin 81 mg 03/03/24 09:00 Aspirin 81 Mg PO DAILY [facility] Atorvastatin Calcium 40 mg 03/02/24 21:00 Atorvastatin 40 Mg Tab PO HS [facility] Buspirone HCl 5 mg 03/02/24 09:00 03/02/24 09:37 Buspirone Hcl 5 Mg Tab PO 5 mg BID [facility] Administration Fluoxetine HCl 40 mg 03/02/24 09:00 03/02/24 09:34 Fluoxetine Hcl 20 Mg Cap PO 40 mg DAILY [facility] Administration Ipratropium [place] 0.5 mg 03/02/24 08:00 03/02/24 09:02 Ipratropium 0.5 Mg/2.5 Ml Nebu INHALATION Not Given RT-QID [facility] Memantine 10 mg 03/02/24 09:00 03/02/24 09:37 Memantine 10 Mg Tab PO 10 mg DAILY [facility] Administration Nitroglycerin 0.4 mg 03/01/24 20:33 Nitroglycerin Sl Tabs 0.4 Mg Tab SUBLINGUAL Q5M PRN Chest Pain Pantoprazole Sodium 40 mg 03/02/24 09:00 03/02/24 09:35 Pantoprazole 40 Mg Tablet PO 40 mg AC-[id number] [facility] Administration Propranolol HCl 10 mg 03/02/24 09:00 03/02/24 09:38 Propranolol 10 Mg Tab PO 10 mg TID [facility] Administration Tramadol HCl 50 mg 03/02/24 07:23 Tramadol 50 Mg Tab PO BID PRN Pain Intake and Output 03/01/24 03/02/24 03/02/24 22:59 06:59 14:59 Output Total 200 Balance -200 Output: Urine 200 Other: # Voids 2 Weight 54.431 kg 03/01/24 19:47 03/01/24 19:47
--- NOTE | 2024-03-02 20:21 | CA ---
Transthoracic Echo Report Name: Angel Gomez Age: 83 Gender: F : 1940 Exam Date: 03/02/2024 13:58 Exam Location: [facility] Ht (in): 62 Wt (lb): 120 Ordering Physician: Juve Polanco MD Attending/Referring Phys: City Solicitor Calista Ashley RDCS Procedure CPT: Indications: chf Cardiac Hx: Technical Quality: Good Contrast 1: Total Dose (mL): Contrast 2: Total Dose (mL): MEASUREMENTS (Male / Female) Normal Values 2D ECHO LV Diastolic Diameter PLAX 5.0 cm 4.2 - 5.9 / 3.9 - 5.3 cm LV Systolic Diameter PLAX 3.3 cm IVS Diastolic Thickness 0.5 cm 0.6 - 1.0 / 0.6 - 0.9 cm LVPW Diastolic Thickness 0.8 cm 0.6 - 1.0 / 0.6 - 0.9 cm LV Relative Wall Thickness 0.3 LVOT Diameter 1.9 cm LV Diastolic Volume MOD BP 89.9 cm??? 67 - 155 / 56 - 104 cm??? LV Systolic Volume MOD BP 37.6 cm??? 22 - 58 / 19 - 49 cm??? LV Ejection Fraction MOD BP 58.2 % >= 55 % LV Cardiac Index MOD BP 2131.3 cm???/min???m??? LV Diastolic Volume MOD 4C 86.8 cm??? LV Systolic Volume MOD 4C 45.2 cm??? LV Ejection Fraction MOD 4C 47.9 % LV Cardiac Index MOD 4C 1693.9 cm???/min???m??? LV Diastolic Length 4C 6.9 cm LV Systolic Length 4C 5.7 cm LV Diastolic Volume MOD 2C 86.0 cm??? LV Systolic Volume MOD 2C 30.5 cm??? LV Ejection Fraction MOD 2C 64.5 % LV Cardiac Index MOD 2C 2256.9 cm???/min???m??? LV Diastolic Length 2C 7.5 cm LV Systolic Length 2C 5.9 cm LA Volume 33.7 cm??? 18 - 58 / 22 - 52 cm??? LA Volume Index 21.8 cm???/m??? 16 - 28 cm???/m??? DOPPLER AV Peak Velocity 115.8 cm/s AV Peak Gradient 5.4 mmHg AV Mean Velocity 77.4 cm/s AV Mean Gradient 2.7 mmHg AV Velocity Time Integral 25.8 cm LVOT Peak Velocity 106.1 cm/s LVOT Peak Gradient 4.5 mmHg LVOT Velocity Time Integral 22.8 cm LVOT Stroke Volume 65.8 cm??? LVOT Stroke Volume Index 42.8 ml/m??? LVOT Cardiac Index 2681.3 cm???/min???m??? AV Area Cont Eq vti 2.6 cm??? AV Area Cont Eq pk 2.6 cm??? MV Area PHT 3.1 cm??? Mitral E Point Velocity 50.8 cm/s Mitral A Point Velocity 74.6 cm/s Mitral E to A Ratio 0.7 MV Deceleration Time 241.0 ms PV Peak Velocity 60.3 cm/s PV Peak Gradient 1.5 mmHg FINDINGS Left Ventricle Left ventricular ejection fraction is estimated at 50-55 %. Left ventricular cavity size normal. Left ventricular wall thickness normal. No obvious regional wall motion abnormalities. Right Ventricle Normal right ventricular size and function. Unable to estimate the right ventricular systolic pressure. Right Atrium Normal right atrial size. Left Atrium Normal left atrial size. Mitral Valve Mitral valve thickened. Mild mitral annular calcification. No evidence for mitral valve prolapse. No mitral stenosis. Mild mitral regurgitation. Aortic Valve Trileaflet aortic valve. Aortic valve sclerosis. No aortic stenosis. No aortic regurgitation. Tricuspid Valve Structurally normal tricuspid valve. No tricuspid stenosis. Trace tricuspid regurgitation. Pulmonic Valve Structurally normal pulmonic valve. No pulmonic stenosis. No pulmonic regurgitation. Pericardium No pericardial effusion. Aorta Aortic annulus normal. CONCLUSIONS Left ventricular ejection fraction is estimated at 50-55 %. No obvious regional wall motion abnormalities. Normal RV size and systolic function No significant chamber size abnormality No significant valvular Previewed by: Dr Juve Polanco (Electronically Signed) Final Date: 02 March 2024 20:20
[2024-03-02] MEDS: ALPRAZolam 0.5 MG TAB PO PRN (20:28)
[2024-03-02] MEDS: ATORVASTATIN 40 MG TAB PO SCH (20:28)
[2024-03-03 02:23] VITALS: RESP 18
[2024-03-03] MEDS: ALBUTEROL NEBULIZED 2.5 MG/3 ML INHALATION PRN (05:52)
[2024-03-03 07:01] VITALS: TEMP 97.8
[2024-03-03 07:57] VITALS: BP 120/61
--- NOTE | 2024-03-03 09:08 | P.PN ---
Subjective Progress Note Date: 03/03/24 HISTORY OF PRESENTING ILLNESS 83-year-old female with past medical history of paroxysmal atrial fibrillation on anticoagulation with Eliquis, asthma, COPD with chronic hypoxia on 5 L oxygen, CVA/TIA, GERD, dyslipidemia, ongoing tobacco dependence. Patient is a poor historian because of significant hearing impairment. She was brought to the hospital because of increased worsening breathing and some substernal chest tightness. On admission her labs shows troponin that were negative x 3, NT-proBNP was not elevated, chest x-ray did not show any significant acute cardiopulmonary process including no significant pulmonary congestion or consolidation. BP 100/83, heart rate 60s. On telemetry shows sinus rhythm. Home medication aspirin, Eliquis 2.5, Lipitor 40 mg March 03, 2024 Patient is seen and examined at bedside this a.m. She denies having any active chest pain chest pressure. She reports that she is still feeling short of breath and weak. PHYSICAL EXAMINATION Vital signs reviewed. Head: Normocephalic. Eyes: Sclerae nonicteric. Neck: Brisk carotid upstroke, no jugular venous distention. Lungs: Diminished breath sounds with poor inspiratory effort. No significant crackles. Mild wheezing audible heart: Regular rate and rhythm, S1-S2 mild systolic murmur Abdomen: Soft nontender, positive bowel sounds. Extremities: No edema, intact distal pulses. Neuro: Alert, oritented, no focal deficits. Detailed neuro exam was not performed. ASSESSMENT Respiratory distress and dyspnea on exertion, likely due to below Substernal chest pressure, most likely because of mild COPD exacerbation. Paroxysmal atrial fibrillation, currently in sinus rhythm Moderate MR and moderate TR History of CVA/TIA Tobacco smoker Debility and frailty Chronic hypoxia on 5 L oxygen Last echo from December 2022 shows EF of 50 to 55%, mild concentric LVH, moderate mitral regurgitation, moderate tricuspid regurgitation. Echo during this hospital admission shows EF of 50 to 55%, mild concentric LVH, moderate mitral regurgitation, moderate tricuspid regurgitation. PLAN Continue aspirin, Eliquis 2.5 mg twice daily, Continue Lipitor 40 mg daily Recommend outpatient follow-up with primary orthotic/prosthetic practitioner to evaluate her mitral regurgitation further. Continue nasal cannula supplemental oxygen. This time patient is stable from cardiac standpoint. Cardiology team will sign off. Please reconsult us in case of any question. Recommend outpatient follow- up with primary orthotic/prosthetic practitioner Objective - Vital Signs Vital signs: Vital Signs Temp 97.8 F 03/03/24 07:28 Pulse 60 03/03/24 08:08 Resp 18 03/03/24 07:28 BP 120/61 03/03/24 07:28 Pulse Ox 96 03/03/24 08:00 FiO2 Intake & Output 03/02/24 03/03/24 03/03/24 18:59 06:59 18:59 Other: # Voids 2 - Labs CBC & Chem 7: 03/01/24 19:47 03/01/24 19:47 Labs: Abnormal Lab Results - Last 24 Hours (Table) 03/02/24 Range/Units 03:30 Cholesterol 208.00 H (0.00-200.00) mg/dL
[2024-03-03] MEDS: ASPIRIN 81 MG PO SCH (09:44)
[2024-03-03 11:21] VITALS: PULSE 60
--- NOTE | 2024-03-03 12:33 | P.DS ---
Providers Date of admission: 03/01/24 20:33 Expected date of discharge: 03/03/24 Attending physician: Owen Layne MD [facility]: 83-year-old female with past medical history significant for known atrial fibrillation anticoagulated on Eliquis, asthma, COPD on 5L [place] oxygen at home continuously, CVA/TIA, GERD, hyperlipidemia, chronic and ongoing tobacco dependence presents to the ED for shortness of breath and chest pain. In the ED she underwent extensive evaluation. Blood pressure 100/83, heart rate 60, respiratory rate 19, saturating 96% on 2 L nasal cannula. WBCs 5.4, Hgb 11.6, hct 34.7, PLT 221; sodium 138, potassium 3.8, BUN 16, creatinine 0.74. Troponin <0.012 x 3, proBNP 63. Chest x-ray done in the ER noted no acute cardiopulmonary disease process. EKG done in the ER showed heart rate of 57, with sinus bradycardia with Q waves in V1 V2. Patient is admitted for chest pain, rule out ACS and Cardiology consult. 03/02 Patient was seen and examined. She reports feeling startled after being woken up. Patient is not able to describe her chest pain clearly. Troponin < 0.012 x 3 and BNP is 63. CXR as above is negative for acute process. 03/03 Patient was seen and examined. No complaints today. No chest pain. Wanting to go home. ACS ruled out. Echo shows EF 50-55%. Plans for discharge home. Advised to follow up with PCP within 1-2 days and primary calender let off helper within 1 week of discharge. General: non toxic, no distress, appears at stated age Derm: no unusual rashes/lesions, warm Head: atraumatic, normocephalic, symmetric Eyes: EOMI, no lid lag, anicteric sclera ENT: Nose and ears atraumatic Neck: No cervical lymphadenopathy, trachea midline, supple Mouth: no lip lesion, mucus membranes moist Cardiovascular: S1S2 reg, no murmur Lungs: Decreased BS bilateral, no rhonchi, no rales, no accessory muscle use Ext: no gross muscle atrophy, no contractures Neuro: Intention tremor upper extremities, improved. Psych: Anxious Discharge Diagnosis: Chest pain Chronic respiratory failure secondary to COPD not in acute exacerbation Lower back pain secondary to multiple compression fractures Atrial fibrillation GERD HLD Anxiety Dementia This complex discharge took 35 minutes to complete. Patient Condition at Discharge: Stable Plan - Discharge Summary Discharge Rx Participant: No New Discharge Prescriptions: New Atorvastatin [Lipitor] 40 mg PO HS #30 tab Continue Omeprazole 40 mg PO DAILY busPIRone HCl [Buspar] 5 mg PO BID Apixaban [Eliquis] 2.5 mg PO BID 30 Days #60 tab Acetaminophen [Tylenol 8 Hour] 650 mg PO Q8H PRN PRN Reason: Fever And/ Or Pain FLUoxetine HCL [PROzac] 40 mg PO DAILY Albuterol Nebulized [Ventolin Nebulized] 2.5 mg INHALATION RT-TID PRN PRN Reason: Shortness Of Breath Fluticasone/Umeclidin/Vilanter [Trelegy Ellipta 100-62.5-25] 1 puff INHALATION RT-DAILY Memantine [Namenda] 10 mg PO DAILY traMADol HCl [Ultram] 50 mg PO BID PRN PRN Reason: Pain Propranolol [Inderal] 10 mg PO TID Albuterol Inhaler [Ventolin Hfa Inhaler] 1 - 2 puff INHALATION RT-Q4H PRN PRN Reason: Shortness Of Breath ALPRAZolam [Xanax] 0.5 mg PO TID PRN PRN Reason: Anxiety Discharge Medication List Omeprazole 40 mg PO DAILY 08/24/17 [History] FLUoxetine HCL [PROzac] 40 mg PO DAILY 05/21/21 [History] busPIRone HCl [Buspar] 5 mg PO BID 10/30/21 [History] Albuterol Nebulized [Ventolin Nebulized] 2.5 mg INHALATION RT-TID PRN 07/27/22 [History] Fluticasone/Umeclidin/Vilanter [Trelegy Ellipta 100-62.5-25] 1 puff INHALATION RT-DAILY 11/14/22 [History] Memantine [Namenda] 10 mg PO DAILY 04/22/23 [History] traMADol HCl [Ultram] 50 mg PO BID PRN 04/22/23 [History] Apixaban [Eliquis] 2.5 mg PO BID 30 Days #60 tab 10/16/23 [Rx] Acetaminophen [Tylenol 8 Hour] 650 mg PO Q8H PRN 01/17/24 [History] Albuterol Inhaler [Ventolin Hfa Inhaler] 1 - 2 puff INHALATION RT-Q4H PRN 01/17/24 [History] Propranolol [Inderal] 10 mg PO TID 01/17/24 [History] ALPRAZolam [Xanax] 0.5 mg PO TID PRN 03/02/24 [History] Atorvastatin [Lipitor] 40 mg PO HS #30 tab 03/03/24 [Rx] Follow up Appointment(s)/Referral(s): Juve Polanco MD [Medical Doctor] - 1 Week Pablo De La Garza DO [Primary Care Provider] - 1-2 days Patient Instructions/Handouts: Atorvastatin (By mouth), Chest Pain (DC) Discharge Disposition: HOME SELF-CARE
== END 2024-03-03 13:07 | disposition home or self-care (01) ==
LOC: EC 19:09 → 6NMEDSUR 20:33 → 5NMEDONC 03-02 21:54
PROVIDERS: ADMIT Internal Medicine; ATTEND Internal Medicine
DX: R07.89 Other chest pain (principal); J44.9 Chronic obstructive pulmonary disease, unspecified; J96.11 Chronic respiratory failure with hypoxia; R53.1 Weakness; R53.81 Other malaise; K21.9 Gastro-esophageal reflux disease without esophagitis; I48.0 Paroxysmal atrial fibrillation; I48.20 Chronic atrial fibrillation, unspecified; I08.1 Rheumatic disorders of both mitral and tricuspid valves; E78.5 Hyperlipidemia, unspecified; F03.93 Unspecified dementia, unspecified severity, with mood disturbance; F03.94 Unspecified dementia, unspecified severity, with anxiety; F32.A Depression, unspecified; F17.200 Nicotine dependence, unspecified, uncomplicated; H91.90 Unspecified hearing loss, unspecified ear; G25.0 Essential tremor; M54.50 Low back pain, unspecified; G89.29 Other chronic pain; Z79.899 Other long term (current) drug therapy; Z88.2 Allergy status to sulfonamides; Z91.041 Radiographic dye allergy status; Z88.6 Allergy status to analgesic agent; Z79.01 Long term (current) use of anticoagulants; Z99.81 Dependence on supplemental oxygen; Z86.73 Personal history of transient ischemic attack (TIA), and cerebral infarction without residual deficits
CPT/HCPCS: 99285; 36415; 94640 ×4; 94760; 93005; 93306; 83880; 80048; 82465; 83718; 83605; 84478; 84484 ×2; 85025; 85610; 85730; 71046; G0378 ×4

== ENCOUNTER 2024-03-23 01:46 | Emergency (ER) | payer MEDICARE ==
[2024-03-23 01:55] VITALS: TEMP 97.8
--- NOTE | 2024-03-23 01:59 | ED ---
Fall HPI <Enzo Correa - Last Filed: 03/23/24 07:03> - General Source: patient, EMS, RN notes reviewed Mode of arrival: EMS <Prudence Khan - Last Filed: 03/23/24 16:45> - General Chief Complaint: Fall Stated Complaint: Fall Time Seen by Provider: 03/23/24 01:58 - History of Present Illness Initial Comments: This is an 83-year-old female presenting to the emergency department via EMS for chief complaint of a fall. States that she was in her kitchen using her walker when she tripped and fell hitting the right side of her head on the ground. Patient is unaware if she lost consciousness. States that she lives at home with her son who called EMS. Currently patient is endorsing pain to the right side of her eyebrow and pain to her right shoulder that is chronic however states it worsened after the fall. She denies blood thinner use. (Prudence Khan) - Related Data Home Medications Medication Instructions Recorded Confirmed Omeprazole 40 mg PO DAILY 08/24/17 03/02/24 FLUoxetine HCL [PROzac] 40 mg PO DAILY 05/21/21 03/02/24 busPIRone HCl [Buspar] 5 mg PO BID 10/30/21 03/02/24 Albuterol Nebulized [Ventolin 2.5 mg INHALATION RT-TID PRN 07/27/22 03/02/24 Nebulized] Fluticasone/Umeclidin/Vilanter 1 puff INHALATION RT-DAILY 11/14/22 03/02/24 [Treleflorence Ellipta 100-62.5-25] Memantine [Namenda] 10 mg PO DAILY 04/22/23 03/02/24 traMADol HCl [Ultram] 50 mg PO BID PRN 04/22/23 03/02/24 Acetaminophen [Tylenol 8 Hour] 650 mg PO Q8H PRN 01/17/24 03/02/24 Albuterol Inhaler [Ventolin Hfa 1 - 2 puff INHALATION RT-Q4H PRN 01/17/24 03/02/24 Inhaler] Propranolol [Inderal] 10 mg PO TID 01/17/24 03/02/24 ALPRAZolam [Xanax] 0.5 mg PO TID PRN 03/02/24 03/02/24 Previous Rx's Medication Instructions Recorded Apixaban [Eliquis] 2.5 mg PO BID 30 Days #60 tab 10/16/23 Atorvastatin [Lipitor] 40 mg PO HS #30 tab 03/03/24 Allergies Allergy/AdvReac Type Severity Reaction Status Date / Time budesonide [From Symbicort] Allergy Unknown Verified 03/23/24 01:55 formoterol [From Symbicort] Allergy Unknown Verified 03/23/24 01:55 gabapentin Allergy Unknown Verified 03/23/24 01:55 ibuprofen Allergy Unknown Verified 03/23/24 01:55 Iodinated Contrast Media Allergy Unknown Verified 03/23/24 01:55 [Iodinated Contrast- Oral and IV Dye] iodine Allergy Rash/Hives Verified 03/23/24 01:55 Sulfa (Sulfonamide Allergy Rash/Hives Verified 03/23/24 01:55 Antibiotics) topiramate [From Topamax] Allergy Unknown Verified 03/23/24 01:55 lorazepam [From Ativan] AdvReac Hallucinati Verified 03/23/24 01:55 ons prednisone AdvReac dizziness Verified 03/23/24 01:55 zolpidem tartrate AdvReac Hallucinati Verified 03/23/24 01:55 [From Ambien] ons Review of Systems ROS Other: All systems not noted in ROS Statement are negative. <Enzo Correa - Last Filed: 03/23/24 07:03> ROS Other: All systems not noted in ROS Statement are negative. <Prudence Khan - Last Filed: 03/23/24 16:45> ROS Statement: Those systems with pertinent positive or pertinent negative responses have been documented in the HPI. Past Medical History Past Medical History: Atrial Fibrillation, Asthma, COPD, CVA/TIA, Dementia, Eye Disorder, GERD/Reflux, Hyperlipidemia, Pneumonia Additional Past Medical History / Comment(s): Chronic atrial fibrillation per PMH but pt has no recollection of this, bronchiectasis, essential tremors, previous TIA, chronic lumbar back pain, past 6 months R shoulder/cervical pain, balance difficulty with falls, occasional low urinary output and uses lasix prn for this, bilateral varicose veins, dysphagia-able to take pills one at a time with water, small hiatal hernia, restless leg syndrome, seasonal ALLERGIES, History of Any Multi-Drug Resistant Organisms: MRSA Date of last positivie culture/infection: 03/22/23 MDRO Source:: Left Heel Past Surgical History: Hysterectomy Additional Past Surgical History / Comment(s): 11/27/15 EGD with bx, bilateral cataracts removed with lens implants, colonoscopy with 1 benign polypectomy. Past Anesthesia/Blood Transfusion Reactions: No Reported Reaction Past Psychological History: Anxiety, Depression Smoking Status: Current some day smoker Past Alcohol Use History: None Reported Past Drug Use History: None Reported - Past Family History Father Family Medical History: Cancer Additional Family Medical History / Comment(s): Pt thinks father might have from stomach cancer. She was 2 yrs old when he . Sister(s) Family Medical History: Cancer Additional Family Medical History / Comment(s): Half sister with brain cancer. Mother Family Medical History: Dementia Additional Family Medical History / Comment(s): Mother had gallstones and a partial thyroidectomy for noncancerous reasons. <Prudence Khan - Last Filed: 03/23/24 16:45> General Exam Limitations: no limitations General appearance: alert, in no apparent distress Eye exam: Present: PERRL, EOMI, other (right lateral eyebrow laceration aprox. 3 cm ). Absent: scleral icterus, conjunctival injection, periorbital swelling ENT exam: Present: normal exam, mucous membranes moist Neck exam: Present: normal inspection. Absent: tenderness, meningismus, lymphadenopathy Respiratory exam: Present: normal lung sounds bilaterally. Absent: respiratory distress, wheezes, rales, rhonchi, stridor Cardiovascular Exam: Present: regular rate, normal rhythm, normal heart sounds. Absent: systolic murmur, diastolic murmur, rubs, gallop, clicks GI/Abdominal exam: Present: soft, normal bowel sounds. Absent: distended, tenderness, guarding, rebound, rigid Right Shoulder Exam: Present: full ROM, tenderness (with ROM), abrasion (lateral) Hand Wrist exam: Present: normal inspection, full ROM Neuro motor exam: Present: wrist extension intact, thumb opposition intact Vascular: Present: radial pulse (2+). Absent: vascular compromise Back exam: Present: normal inspection Neurological exam: Present: alert, oriented X3, CN II-XII intact Skin exam: Present: warm, dry, intact, normal color. Absent: rash <Prudence Khan - Last Filed: 03/23/24 16:45> Course Vital Signs 03/23/24 03/23/24 03/23/24 01:53 06:00 07:55 Temperature 97.8 F Pulse Rate 69 82 81 Respiratory 18 16 18 Rate Blood Pressure 128/84 117/74 92/62 O2 Sat by Pulse 97 98 100 Oximetry Medical Decision Making <Prudence Khan - Last Filed: 03/23/24 16:45> - Medical Decision Making Was pt. sent in by a medical professional or institution (, PA, HYDRAULIC BULL RIVETER OPERATOR, urgent care, hospital, or alf...) When possible be specific @ -No Did you speak to anyone other than the patient for history (EMS, parent, family, police, friend...)? What history was obtained from this source @ -No Did you review nursing and triage notes (agree or disagree)? Why? @ -I reviewed and agree with nursing and triage notes Were old charts reviewed (outside hosp., previous admission, EMS record, old EKG, old radiological studies, urgent care reports/EKG's, alf records)? Report findings @ -No old charts were reviewed Differential Diagnosis (chest pain, altered mental status, abdominal pain women, abdominal pain men, vaginal bleeding, weakness, fever, dyspnea, syncope, headache, dizziness, GI bleed, back pain, seizure, CVA, palpatations, mental h ealth, musculoskeletal)? @ -Subdural hematoma, subarachnoid hemorrhage, laceration, contusion, cervical spine fracture, this list is not all inclusive EKG interpreted by me (3pts min.). @ -None X-rays interpreted by me (1pt min.). @ -XR of the right shoulder no acute fracture or subluxation CT interpreted by me (1pt min.). @ -CT of the brain and C-spine without contrast reveals no evidence of acute bleed or mass effect with no evidence of cervical spine trauma. U/S interpreted by me (1pt. min.). @ -None done What testing was considered but not performed or refused? (CT, X-rays, U/S, labs)? Why? @ -None What meds were considered but not given or refused? Why? @ -None Did you discuss the management of the patient with other professionals (professionals i.e. , PA, HYDRAULIC BULL RIVETER OPERATOR, lab, RT, psych nurse, bilingual social worker, bike designer, teacher, inspectors and regulatory officers, onsite case manager)? Give summary @ -No Was smoking cessation discussed for >3mins.? @ -No Was critical care preformed (if so, how long)? @ -No Were there social determinants of health that impacted care today? How? (Homelessness, low income, unemployed, alcoholism, drug addiction, transportation, low edu. Level, literacy, decrease access to med. care, care home, rehab)? @ -No Was there de-escalation of care discussed even if they declined (Discuss DNR or withdrawal of care, Hospice)? DNR status @ -No What co-morbidities impacted this encounter? (DM, HTN, Smoking, COPD, CAD, Cancer, CVA, ARF, Chemo, Hep., AIDS, mental health diagnosis, sleep apnea, morbid obesity)? @ -None Was patient admitted / discharged? Hospital course, mention meds given and route, prescriptions, significant lab abnormalities, going to OR and other pertinent info. @ -discharged. 83-year-old female with a fall. Patient arrives via EMS with c- collar in place. Noted to have laceration to the lateral right eyebrow with no evidence of active bleeding. Patient is neurologically intact. Patient's son at bedside states that she is at her baseline. wound glue was used over the laceration. xr shoulder negative for acute process. CT of the brain and Cspine is negative for acute process. All questions have been answered at bedside and strict return parameters discussed with the patient and her son and they verbalized understanding. discussed with Dr. Correa Undiagnosed new problem with uncertain prognosis? @ -No Drug Therapy requiring intensive monitoring for toxicity (Heparin, Nitro, Insulin, Cardizem)? @ -No Were any procedures done? @ -No Diagnosis/symptom? @ -fall, laceration, closed head injury Acute, or Chronic, or Acute on Chronic? @ -acute Uncomplicated (without systemic symptoms) or Complicated (systemic symptoms)? @ -uncomplicated Side effects of treatment? @ -No Exacerbation, Progression, or Severe Exacerbation? @ -No Poses a threat to life or bodily function? How? (Chest pain, USA, VT, pneumonia, PE, COPD, DKA, ARF, appy, cholecystitis, CVA, Diverticulitis, Homicidal, Suicidal, threat to staff... and all critical care pts) @ -No (Prudence Khan) Disposition Is patient prescribed a controlled substance at d/c from ED?: No <Enzo Correa - Last Filed: 03/23/24 07:03> <Prudence Khan - Last Filed: 03/23/24 16:45> Clinical Impression: Fall, Closed head injury, Shoulder sprain Disposition: HOME SELF-CARE Condition: Good Instructions (If sedation given, give patient instructions): Fall Prevention for Older Adults (ED), Shoulder Sprain (ED) Referrals: Pablo De La Garza DO [Primary Care Provider] - 1-2 days
[2024-03-23] MEDS: TOPICAL SKIN ADHESIVE 1 EACH AMP TOPICAL ONE (03:29)
--- NOTE | 2024-03-23 04:35 | XR ---
EXAM: XR Right Shoulder Complete, 2 or More Views CLINICAL HISTORY: ITS.REASON XR Reason: fall TECHNIQUE: Two or more views of the right shoulder. COMPARISON: No relevant prior studies available. FINDINGS: Bones/joints: Diffuse osseous demineralization. No acute fracture or subluxation. Soft tissues: Unremarkable. IMPRESSION: No acute fracture or subluxation.
[2024-03-23] MEDS: MORPHINE SULFATE 4 MG/ML SYRINGE IM STA (06:07)
--- NOTE | 2024-03-23 07:00 | CT ---
EXAMINATION TYPE: CT brain javan mckee con DATE OF EXAM: 03/23/2024 COMPARISON: 02/29/2024 CLINICAL INDICATION: Female, 83 years old with history of fall; [facility], TECHNIQUE: CT scan of the head and cervical spine are performed without contrast. CT DLP: mGycm CT CTDI: mGy Automated exposure control for dose reduction was used. Findings: Head CT: The ventricles, basal cisterns and sulci of the complexes are markedly enlarged consistent with marke d generalized atrophy with a greater central component versus normal pressure hydrocephalus. There is moderate decreased density in the periventricular white matter consistent with chronic ischemic whit e matter demyelination. There is no acute intra or extra-axial hemorrhage. Posterior fossa including the brainstem, fourth ventricle and cerebellar pontine angles are grossly n ormal. The intraorbital contents appear normal and symmetric. Visualized paranasal sinuses are well aerated. Calvarium is intact. CT cervical spine: Craniovertebral junction relationships and prevertebral soft tissues are normal. The cervical vertebral segments are normal in height and alignment and there is no fracture subluxati on. There is mild disc space narrowing and spondylosis at the C3-4 and C5-6 level indicating mild degener ative disc disease.. The bony cervical canal is widely patent and there is no bony encroachment of the neural foramina. The paraspinal soft tissues unremarkable. IMPRESSION: 1. Head CT: No acute bleed or mass effect. Marked atrophy with a greater central component versus nor mal pressure hydrocephalus. 2. CT cervical spine: No acute trauma. Mild degenerative disc disease. [facility], Workstation: CHRISTIAN 03/23/2024 6:58 AM
[2024-03-23 07:57] VITALS: BP 92/62; PULSE 81; RESP 18
== END 2024-03-23 08:01 | disposition home or self-care (01) ==
LOC: EC 01:46
DX: S01.111A Laceration without foreign body of right eyelid and periocular area, initial encounter (principal); S43.401A Unspecified sprain of right shoulder joint, initial encounter; F17.200 Nicotine dependence, unspecified, uncomplicated; Z88.6 Allergy status to analgesic agent; Z88.2 Allergy status to sulfonamides; Z88.8 Allergy status to other drugs, medicaments and biological substances; Z88.5 Allergy status to narcotic agent; W01.0XXA Fall on same level from slipping, tripping and stumbling without subsequent striking against object, initial encounter; Y92.090 Kitchen in other non-institutional residence as the place of occurrence of the external cause
CPT/HCPCS: 96372 ×2; 99284 ×2; 73030; 72125; 70450; 12011; J2270

== ENCOUNTER 2024-03-31 04:12 | Emergency (ER) | payer MEDICARE ==
[2024-03-31 04:19] VITALS: RESP 18
--- NOTE | 2024-03-31 06:06 | CT ---
EXAM: CT Head Without Intravenous Contrast CLINICAL HISTORY: ITS.REASON CT Reason: fall injury TECHNIQUE: Axial computed tomography images of the head/brain without intravenous contrast. CTDI is 45.3 mGy and DLP is 1005 mGy-cm. This CT exam was performed using one or more of the following dose reduction techniques: automated exposure control, adjustment of the mA and/or kV according to patient size, and/or use of iterative reconstruction technique. COMPARISON: CT Head dated 03/23/2024 FINDINGS: Brain: Volume loss with prominent ventricles and sulci. Periventricular and subcortical white matter hypoattenuation likely reflects chronic small vessel disease. No hemorrhage. Ventricles: See above. Bones/joints: Unremarkable. No acute fracture. Soft tissues: Unremarkable. Sinuses: Unremarkable as visualized. No acute sinusitis. Mastoid air cells: Unremarkable as visualized. No mastoid effusion. Orbits: Bilateral intraocular lens implants. IMPRESSION: No acute findings in the head/brain. EXAM: CT Cervical Spine Without Intravenous Contrast CLINICAL HISTORY: ITS.REASON CT Reason: fall injury TECHNIQUE: Axial computed tomography images of the cervical spine without intravenous contrast. CTDI is 6.7 mGy and DLP is 215.5 mGy-cm. This CT exam was performed using one or more of the following dose reduction techniques: automated exposure control, adjustment of the mA and/or kV according to patient size, and/or use of iterative reconstruction technique. COMPARISON: CT Cervical Spine dated 03/23/2024 FINDINGS: Vertebrae: Mild T1 superior endplate compression deformity similar to the prior. Discs/spinal canal/neural foramina: Degenerative changes. Soft tissues: Unremarkable. IMPRESSION: No acute findings in the cervical spine.
--- NOTE | 2024-03-31 06:17 | ED ---
Fall HPI - General Source: EMS Mode of arrival: EMS - History of Present Illness MD Complaint: fall -: minutes(s) Fall From: out of bed When Fall Occurred: just prior to arrival Fall Witnessed: no Place Fall Occurred: home Loss of Consciousness: none Prolonged Down Time?: no Symptoms Prior to Fall: none Location: head, back Severity: moderate Associated Symptoms: headache <Enzo Correa - Last Filed: 03/31/24 07:29> <Juan Francisco Montelongo - Last Filed: 03/31/24 09:59> - General Chief Complaint: Fall Stated Complaint: Fall Time Seen by Provider: 03/31/24 04:14 - History of Present Illness Initial Comments: This patient is an 83-year-old woman arriving by ambulance to have evaluation for a fall. The patient reports that she rolled off of the bed or couch that she was sleeping on and landed on the ground. When I initially evaluated the patient she was complaining of low back pain. She does reportedly take blood thinning medicines for atrial fibrillation. The patient was initially complaining also of a little bit of headache and no neck pain. She had been subsequently sent for CAT scan and then was complaining of neck pain as well. (Enzo Correa) - Related Data Home Medications Medication Instructions Recorded Confirmed Omeprazole 40 mg PO DAILY 08/24/17 03/02/24 FLUoxetine HCL [PROzac] 40 mg PO DAILY 05/21/21 03/02/24 busPIRone HCl [Buspar] 5 mg PO BID 10/30/21 03/02/24 Albuterol Nebulized [Ventolin 2.5 mg INHALATION RT-TID PRN 07/27/22 03/02/24 Nebulized] Fluticasone/Umeclidin/Vilanter 1 puff INHALATION RT-DAILY 11/14/22 03/02/24 [Trelegy Ellipta 100-62.5-25] Memantine [Namenda] 10 mg PO DAILY 04/22/23 03/02/24 traMADol HCl [Ultram] 50 mg PO BID PRN 04/22/23 03/02/24 Acetaminophen [Tylenol 8 Hour] 650 mg PO Q8H PRN 01/17/24 03/02/24 Albuterol Inhaler [Ventolin Hfa 1 - 2 puff INHALATION RT-Q4H PRN 01/17/24 03/02/24 Inhaler] Propranolol [Inderal] 10 mg PO TID 01/17/24 03/02/24 ALPRAZolam [Xanax] 0.5 mg PO TID PRN 03/02/24 03/02/24 Previous Rx's Medication Instructions Recorded Apixaban [Eliquis] 2.5 mg PO BID 30 Days #60 tab 10/16/23 Atorvastatin [Lipitor] 40 mg PO HS #30 tab 03/03/24 Allergies Allergy/AdvReac Type Severity Reaction Status Date / Time budesonide [From Symbicort] Allergy Unknown Verified 03/31/24 04:19 formoterol [From Symbicort] Allergy Unknown Verified 03/31/24 04:19 gabapentin Allergy Unknown Verified 03/31/24 04:19 ibuprofen Allergy Unknown Verified 03/31/24 04:19 Iodinated Contrast Media Allergy Unknown Verified 03/31/24 04:19 [Iodinated Contrast- Oral and IV Dye] iodine Allergy Rash/Hives Verified 03/31/24 04:19 Sulfa (Sulfonamide Allergy Rash/Hives Verified 03/31/24 04:19 Antibiotics) topiramate [From Topamax] Allergy Unknown Verified 03/31/24 04:19 lorazepam [From Ativan] AdvReac Hallucinati Verified 03/31/24 04:19 ons prednisone AdvReac dizziness Verified 03/31/24 04:19 zolpidem tartrate AdvReac Hallucinati Verified 03/31/24 04:19 [From Ambien] ons Review of Systems ROS Other: All systems not noted in ROS Statement are negative. Constitutional: Denies: fever, chills Respiratory: Denies: cough, dyspnea Cardiovascular: Denies: chest pain, palpitations, syncope Gastrointestinal: Denies: abdominal pain, nausea, vomiting, diarrhea Genitourinary: Denies: dysuria, hematuria Musculoskeletal: Reports: as per HPI, back pain Skin: Denies: rash Neurological: Reports: headache. Denies: weakness, numbness, paresthesias <Enzo Correa - Last Filed: 03/31/24 07:29> ROS Other: All systems not noted in ROS Statement are negative. <Juan Francisco Montelongo - Last Filed: 03/31/24 09:59> ROS Statement: Those systems with pertinent positive or pertinent negative responses have been documented in the HPI. Past Medical History Past Medical History: Atrial Fibrillation, Asthma, COPD, CVA/TIA, Dementia, Eye Disorder, GERD/Reflux, Hyperlipidemia, Pneumonia Additional Past Medical History / Comment(s): Chronic atrial fibrillation per PMH but pt has no recollection of this, bronchiectasis, essential tremors, previous TIA, chronic lumbar back pain, past 6 months R shoulder/cervical pain, balance difficulty with falls, occasional low urinary output and uses lasix prn for this, bilateral varicose veins, dysphagia-able to take pills one at a time with water, small hiatal hernia, restless leg syndrome, seasonal ALLERGIES, History of Any Multi-Drug Resistant Organisms: MRSA Date of last positivie culture/infection: 03/22/23 MDRO Source:: Left Heel Past Surgical History: Hysterectomy Additional Past Surgical History / Comment(s): 11/27/15 EGD with bx, bilateral cataracts removed with lens implants, colonoscopy with 1 benign polypectomy. Past Anesthesia/Blood Transfusion Reactions: No Reported Reaction Past Psychological History: Anxiety, Depression Smoking Status: Current some day smoker Past Alcohol Use History: None Reported Past Drug Use History: None Reported - Past Family History Father Family Medical History: Cancer Additional Family Medical History / Comment(s): Pt thinks father might have from stomach cancer. She was 2 yrs old when he . Sister(s) Family Medical History: Cancer Additional Family Medical History / Comment(s): Half sister with brain cancer. Mother Family Medical History: Dementia Additional Family Medical History / Comment(s): Mother had gallstones and a partial thyroidectomy for noncancerous reasons. <Enzo Correa - Last Filed: 03/31/24 07:29> General Exam Limitations: no limitations General appearance: alert, in no apparent distress Head exam: Present: atraumatic, normocephalic Eye exam: Present: normal appearance, PERRL, EOMI. Absent: scleral icterus, conjunctival injection Neck exam: Present: normal inspection, full ROM. Absent: tenderness Respiratory exam: Present: normal lung sounds bilaterally. Absent: respiratory distress, wheezes, rales, rhonchi, stridor, chest wall tenderness, accessory muscle use Cardiovascular Exam: Present: regular rate, irregular rhythm, normal heart sounds. Absent: systolic murmur, diastolic murmur, rubs, gallop GI/Abdominal exam: Present: soft. Absent: distended, tenderness, guarding, rebound, rigid, mass Extremities exam: Present: normal inspection, normal capillary refill. Absent: pedal edema, calf tenderness Back exam: Present: normal inspection, vertebral tenderness. Absent: CVA tenderness (R), CVA tenderness (L) Neurological exam: Present: alert, CN II-XII intact. Absent: motor sensory def icit Skin exam: Present: warm, dry, intact, normal color. Absent: rash <MadelineEnzo - Last Filed: 03/31/24 07:29> Course Vital Signs 03/31/24 03/31/24 03/31/24 04:13 05:03 06:23 Temperature 97.3 F L Pulse Rate 66 100 125 H Respiratory 18 18 18 Rate Blood Pressure 118/52 104/79 111/59 O2 Sat by Pulse 99 100 100 Oximetry 03/31/24 03/31/24 03/31/24 07:40 08:00 09:11 Temperature 98.3 F Pulse Rate 144 H 70 64 Respiratory 18 18 Rate Blood Pressure 95/62 83/51 O2 Sat by Pulse 98 98 98 Oximetry Medical Decision Making - EKG Data -: EKG Interpreted by [facility] EKG shows normal: axis (Normal), intervals (Normal), QRS complexes (Normal) Rate: tachycardia (Rate approximately 132 bpm) Interpretation: nonspecific ST-T wave changes, other (Rhythm is atrial fibrillation) <Enzo Correa - Last Filed: 03/31/24 07:29> - Lab Data Result diagrams: 03/31/24 07:48 03/31/24 07:48 <Juan Francisco Montelongo - Last Filed: 03/31/24 09:59> - Medical Decision Making Repeat EKG shows sinus rhythm with a rate of 70. [place] 109. QRS 78. QT 404. QTc 425. Normal axis. Q wave V1. No acute ST change. Was pt. sent in by a medical professional or institution (, PA, LINING CL[employer]ER, urgent care, hospital, or fdc...) When possible be specific @ -No Did you speak to anyone other than the patient for history (EMS, parent, family, police, friend...)? What history was obtained from this source @ -No Did you review nursing and triage notes (agree or disagree)? Why? @ -I reviewed and agree with nursing and triage notes Were old charts reviewed (outside hosp., previous admission, EMS record, old EKG, old radiological studies, urgent care reports/EKG's, fdc records)? Report findings @ -Previous chest x-ray shows COPD findings Differential Diagnosis (chest pain, altered mental status, abdominal pain women, abdominal pain men, vaginal bleeding, weakness, fever, dyspnea, syncope, headache, dizziness, GI bleed, back pain, seizure, CVA, palpatations, mental health, musculoskeletal)? @ -Differential Musculoskeletal Muscular strain, contusion, ligament sprain, fracture, arthritis, septic arthritis, bursitis, cellulitis, muscle spasm, nerve compression, DVT, arterial occlusion, herpes zoster, electrolyte abnormality, tumor.... This is not meant to be in all inclusive list EKG interpreted by me (3pts min.). @ -As above X-rays interpreted by me (1pt min.). @ -Chest x-ray shows no acute process CT interpreted by me (1pt min.). @ -CT lumbar spine shows compression L1 on the inferior portion, moderate. CT brain without acute abnormality. CT C-spine without acute abnormality. U/S interpreted by me (1pt. min.). @ -None done What testing was considered but not performed or refused? (CT, X-rays, U/S, labs)? Why? @ -None What meds were considered but not given or refused? Why? @ -None Did you discuss the management of the patient with other professionals (professionals i.e. , PA, [employer]ING CL[employer]ER, lab, RT, psych nurse, administrator social welfare, armorer technician, teacher, staff combat information center officer, case finisher)? Give summary @ -Case was discussed with Dr. Goodman centeno who is comfortable with discharge and brace and follow-up Was smoking cessation discussed for >3mins.? @ -No Was critical care preformed (if so, how long)? @ -31 minutes critical care time provided Were there social determinants of health that impacted care today? How? (Homelessness, low income, unemployed, alcoholism, drug addiction, transportation, low edu. Level, literacy, decrease access to med. care, intermediate, rehab)? @ -No Was there de-escalation of care discussed even if they declined (Discuss DNR or withdrawal of care, Hospice)? DNR status @ -No What co-morbidities impacted this encounter? (DM, HTN, Smoking, COPD, CAD, Cancer, CVA, ARF, Chemo, Hep., AIDS, mental health diagnosis, sleep apnea, morbid obesity)? @ -History of previous compression fractures Was patient admitted / discharged? Hospital course, mention meds given and route , prescriptions, significant lab abnormalities, going to OR and other pertinent info. @ -Patient presents from a fall. Patient has back pain with concern for compression L1 fracture. Patient be discharged with back brace and follow-up orthopedics and primary. Patient updated. Undiagnosed new problem with uncertain prognosis? @ -No Drug Therapy requiring intensive monitoring for toxicity (Heparin, Nitro, Insulin, Cardizem)? @ -No Were any procedures done? @ -No Diagnosis/symptom? @ -L1 fracture Acute, or Chronic, or Acute on Chronic? @ -Acute Uncomplicated (without systemic symptoms) or Complicated (systemic symptoms)? @ -Complicated with A-fib and RVR, patient received IV medication for this and converted to sinus rhythm. Side effects of treatment? @ -No Exacerbation, Progression, or Severe Exacerbation? @ -No Poses a threat to life or bodily function? How? (Chest pain, [place], [place], pneumonia, PE, COPD, DKA, ARF, appy, cholecystitis, CVA, Diverticulitis, Homicidal, Suicidal, threat to staff... and all critical care pts) @ -Threat to musculoskeletal function (Juan Francisco Montelongo) - Lab Data Lab Results 03/31/24 03/31/24 03/31/24 Range/Units 07:48 07:48 07:48 WBC 9.1 (3.8-10.6) k/uL RBC 4.03 (3.80-5.40) m/uL Hgb 12.1 (11.4-16.0) gm/dL Hct 36.5 (34.0-46.0) % MCV 90.8 (80.0-100.0) fL MCH 30.0 (25.0-35.0) pg MCHC 33.1 (31.0-37.0) g/dL RDW 12.9 (11.5-15.5) % Plt Count 270 (150-450) k/uL MPV 7.9 Neutrophils % 74 % Lymphocytes % 17 % Monocytes % 7 % Eosinophils % 1 % Basophils % 0 % Neutrophils # 6.7 (1.3-7.7) k/uL Lymphocytes # 1.5 (1.0-4.8) k/uL Monocytes # 0.6 (0-1.0) k/uL Eosinophils # 0.1 (0-0.7) k/uL Basophils # 0.0 (0-0.2) k/uL PT 10.6 (10.0-12.5) sec INR 1.0 (<1.2) APTT 25.3 (22.0-30.0) sec Sodium 138 (137-145) mmol/L Potassium 3.8 (3.5-5.1) mmol/L Chloride 104 (98-107) mmol/L Carbon Dioxide 30 (22-30) mmol/L Anion Gap 4 mmol/L BUN 17 (7-17) mg/dL Creatinine 0.76 (0.52-1.04) mg/dL Est GFR (CKD-EPI)AfAm 84 (>60 ml/min/1.73 sqM) Est GFR (CKD-EPI)NonAf 73 (>60 ml/min/1.73 sqM) Glucose 98 (74-99) mg/dL Calcium 9.1 (8.4-10.2) mg/dL Magnesium 2.2 (1.6-2.3) mg/dL Total Bilirubin 0.7 (0.2-1.3) mg/dL AST 17 (14-36) U/L ALT 9 (4-34) U/L Alkaline Phosphatase 93 (38-126) U/L Troponin I (0.000-0.034) ng/mL Total Protein 5.8 L (6.3-8.2) g/dL Albumin 3.5 (3.5-5.0) g/dL TSH 0.622 (0.465-4.680) mIU/L Free T4 1.28 (0.78-2.19) ng/dL 03/31/24 Range/Units 07:48 WBC (3.8-10.6) k/uL RBC (3.80-5.40) m/uL Hgb (11.4-16.0) gm/dL Hct (34.0-46.0) % MCV (80.0-100.0) fL MCH (25.0-35.0) pg MCHC (31.0-37.0) g/dL RDW (11.5-15.5) % Plt Count (150-450) k/uL MPV Neutrophils % % Lymphocytes % % Monocytes % % Eosinophils % % Basophils % % Neutrophils # (1.3-7.7) k/uL Lymphocytes # (1.0-4.8) k/uL Monocytes # (0-1.0) k/uL Eosinophils # (0-0.7) k/uL Basophils # (0-0.2) k/uL PT (10.0-12.5) sec INR (<1.2) APTT (22.0-30.0) sec Sodium (137-145) mmol/L Potassium (3.5-5.1) mmol/L Chloride (98-107) mmol/L Carbon Dioxide (22-30) mmol/L Anion Gap mmol/L BUN (7-17) mg/dL Creatinine (0.52-1.04) mg/dL Est GFR (CKD-EPI)AfAm (>60 ml/min/1.73 sqM) Est GFR (CKD-EPI)NonAf (>60 ml/min/1.73 sqM) Glucose (74-99) mg/dL Calcium (8.4-10.2) mg/dL Magnesium (1.6-2.3) mg/dL Total Bilirubin (0.2-1.3) mg/dL AST (14-36) U/L ALT (4-34) U/L Alkaline Phosphatase (38-126) U/L Troponin I <0.012 (0.000-0.034) ng/mL Total Protein (6.3-8.2) g/dL Albumin (3.5-5.0) g/dL TSH (0.465-4.680) mIU/L Free T4 (0.78-2.19) ng/dL Critical Care Time Critical Care Time: Yes Total Critical Care Time: 31 <Juan Francisco Montelongo - Last Filed: 03/31/24 09:59> Disposition <Enzo Correa - Last Filed: 03/31/24 07:29> Is patient prescribed a controlled substance at d/c from ED?: No Time of Disposition: 09:51 <Juan Francisco Montelongo - Last Filed: 03/31/24 09:59> Clinical Impression: Compression fracture of L1 lumbar vertebra Disposition: HOME SELF-CARE Condition: Stable Instructions (If sedation given, give patient instructions): Vertebral Compression Fracture (ED), Fall Prevention for Older Adults (ED) Additional Instructions: Please do follow-up with orthopedics and your primary care physician beginning of the week. Prescription provided for back brace. Return for leg weakness, incontinence or retention of bowel or bladder products. Increased falls, weakness, worsening symptoms or other concerns. Referrals: Pablo De La Garza DO [Primary Care Provider] - 1-2 days Isauro Isbell DO [Doctor of Osteopathic Medicine] - 1-2 days
[2024-03-31] MEDS: METOPROLOL TARTRATE 5 MG/5 ML VIAL IVP SCH (06:18)
--- NOTE | 2024-03-31 07:26 | CT ---
EXAMINATION TYPE: CT lumbar spine wo con DATE OF EXAM: 03/31/2024 5:37 AM COMPARISON: 08/29/2023 CLINICAL INDICATION: Female, 83 years old with history of fall injury; PHH, fall, c/o neck & back janna n. TECHNIQUE: Unenhanced CT of the lumbar spine was performed. Bone and soft tissue window settings are submitted as well as coronal and sagittal reconstructions. CT DLP: 215.[address] CTDI: mGy Automated exposure control for dose reduction was used. FINDINGS: There is a new moderate compression fracture of the inferior endplate of L1 with no significant retro pulsion. There are stable compression fractures of T11, L2 and L3.. There is mild to moderate degener ative disease at the L2-3 and L4-5 and L5-S1, moderate disc space narrowing and spondylosis. Secondar y to thickening of ligamentum flavum and circumferential disc bulge, there is a mild to moderate spin al stenosis at the L3-4 level. There are no large disc herniations. There is mild facet arthropathy at the L4-5 and L5-S1 levels. Paraspinal soft tissues are unremarkable. IMPRESSION: 1. New moderate compression fracture of L1 without retropulsion. 2. Stable depression fractures of T11, L2 and L3. 3. Stable mild to moderate degenerative disc disease as described above. 4. Stable mild to moderate spinal stenosis at the L3-4 level. [facility], , 03/31/2024 7:23 AM
[2024-03-31 07:53] LABS: Basophils % (A) 0 %; Eosinophils # (A) 0.1 k/uL (0-0.7); Eosinophils % (A) 1 %; HCT 36.5 % (34.0-46.0); HGB 12.1 gm/dL (11.4-16.0); Lymphocytes # (A) 1.5 k/uL (1.0-4.8); Lymphocytes % (A) 17 %; MCHC 33.1 g/dL (31.0-37.0); MCV 90.8 fL (80.0-100.0); Mean Platelet Volume 7.9; Monocytes # (A) 0.6 k/uL (0-1.0); Monocytes % (A) 7 %; Neutrophils # (A) 6.7 k/uL (1.3-7.7); Neutrophils % (A) 74 %; Platelet Count 270 k/uL (150-450); RBC 4.03 m/uL (3.80-5.40); RDW 12.9 % (11.5-15.5); WBC 9.1 k/uL (3.8-10.6)
--- NOTE | 2024-03-31 07:59 | XR ---
2 view chest HISTORY: Dysrhythmia. COMPARISON: 03/01/2024. TECHNIQUE: PA and lateral views chest obtained. FINDINGS: There is hyperinflation of the lungs consistent with COPD. Heart and pulmonary vasculature within normal limits. There is no airspace consolidation. There is no pleural effusion or pneumothorax. The osseous structures are intact. IMPRESSION: 1. Stable COPD. 2. No acute cardiopulmonary disease. [facility] Workstation: CHRISTIAN 03/31/2024 7:56 AM
[2024-03-31 08:03] LABS: Partial Thromboplastin Time 25.3 sec (22.0-30.0); Prothrombin Time 10.6 sec (10.0-12.5)
[2024-03-31 08:07] LABS: ALT 9 U/L (4-34); AST 17 U/L (14-36); African American GFR (CKD) 84 (>60 ml/min/1.73 sqM); Albumin 3.5 g/dL (3.5-5.0); Alkaline Phosphatase 93 U/L (38-126); Anion Gap 4 mmol/L; Blood Urea Nitrogen 17 mg/dL (7-17); Calcium 9.1 mg/dL (8.4-10.2); Carbon Dioxide 30 mmol/L (22-30); Chloride 104 mmol/L (98-107); Glucose 98 mg/dL (74-99); Magnesium 2.2 mg/dL (1.6-2.3); Non-African American GFR(CKD) 73 (>60 ml/min/1.73 sqM); Potassium 3.8 mmol/L (3.5-5.1); Sodium 138 mmol/L (137-145); Total Bilirubin 0.7 mg/dL (0.2-1.3); Total Protein 5.8 g/dL (6.3-8.2)
[2024-03-31] MEDS: DILTIAZEM 125 MG in SODIUM CHLORIDE 0.9% 100 ML IV SCH (08:20)
[2024-03-31] MEDS: ACETAMINOPHEN IV (For NPO) 1,000 MG in EMPTY BAG 1 BAG IVPB STA (09:03)
[2024-03-31 09:22] LABS: T4, Free (Free Thyroxine) 1.28 ng/dL (0.78-2.19)
[2024-03-31] MEDS: ACET/COD 300 MG/30 MG STARTER PACK 6 TAB BTL PO STA (10:52)
[2024-03-31 11:25] VITALS: BP 101/89; PULSE 78; TEMP 98.1
== END 2024-03-31 11:25 | disposition home or self-care (01) ==
LOC: EC 04:12
DX: S32.010A Wedge compression fracture of first lumbar vertebra, initial encounter for closed fracture (principal); I48.91 Unspecified atrial fibrillation; R00.0 Tachycardia, unspecified; F17.200 Nicotine dependence, unspecified, uncomplicated; Z88.1 Allergy status to other antibiotic agents; Z88.2 Allergy status to sulfonamides; Z88.6 Allergy status to analgesic agent; Z88.8 Allergy status to other drugs, medicaments and biological substances; Z91.041 Radiographic dye allergy status; Z86.73 Personal history of transient ischemic attack (TIA), and cerebral infarction without residual deficits; W06.XXXA Fall from bed, initial encounter; Y92.009 Unspecified place in unspecified non-institutional (private) residence as the place of occurrence of the external cause
CPT/HCPCS: 36415; 93005; 84439; 84481; 80053; 83735; 84443; 84484; 85025; 85610; 85730; 71046; 72125; 72131; 70450; 99291; 96374; 96375; J0131

== ENCOUNTER 2024-04-10 05:20 | Emergency (ER) | payer MEDICARE ==
[2024-04-10 05:35] VITALS: RESP 18; TEMP 98
--- NOTE | 2024-04-10 05:41 | ED ---
General Adult HPI - General Chief complaint: Shortness of Breath Stated complaint: Difficulty Breathing Time Seen by Provider: 04/10/24 05:30 Source: patient, EMS, RN notes reviewed, old records reviewed Mode of arrival: EMS - History of Present Illness Initial comments: Is an 83-year-old female who presents emergency department for shortness of breath. Has history of asthma/COPD, atrial fibrillation on blood thinners, dementia, anxiety. Called EMS for difficulty breathing. Patient is frequently in our emergency department for similar complaints. States she was having difficulty in breathing but is feeling improved at this time. Is chronically on 3 L nasal cannula. Saturating well at this time. Has a history of dementia. Is more or less alert and oriented at her baseline. He has no other acute complaints. Presents for further evaluation. Denies nausea or vomiting. Denies diarrhea. Denies chest pain or abdominal pain. - Related Data Home Medications Medication Instructions Recorded Confirmed Omeprazole 40 mg PO DAILY 08/24/17 03/02/24 FLUoxetine HCL [PROzac] 40 mg PO DAILY 05/21/21 03/02/24 busPIRone HCl [Buspar] 5 mg PO BID 10/30/21 03/02/24 Albuterol Nebulized [Ventolin 2.5 mg INHALATION RT-TID PRN 07/27/22 03/02/24 Nebulized] Fluticasone/Umeclidin/Vilanter 1 puff INHALATION RT-DAILY 11/14/22 03/02/24 [[place] Ellipta 100-62.5-25] Memantine [Namenda] 10 mg PO DAILY 04/22/23 03/02/24 traMADol HCl [Ultram] 50 mg PO BID PRN 04/22/23 03/02/24 Acetaminophen [Tylenol 8 Hour] 650 mg PO Q8H PRN 01/17/24 03/02/24 Albuterol Inhaler [Ventolin Hfa 1 - 2 puff INHALATION RT-Q4H PRN 01/17/24 03/02/24 Inhaler] Propranolol [Inderal] 10 mg PO TID 01/17/24 03/02/24 ALPRAZolam [Xanax] 0.5 mg PO TID PRN 03/02/24 03/02/24 Previous Rx's Medication Instructions Recorded Apixaban [Eliquis] 2.5 mg PO BID 30 Days #60 tab 10/16/23 Atorvastatin [Lipitor] 40 mg PO HS #30 tab 03/03/24 Albuterol Inhaler [Ventolin Hfa 1 puff INHALATION QID #8 gm 04/10/24 Inhaler] predniSONE [Deltasone] 40 mg PO DAILY 5 Days #10 tab 04/10/24 Allergies Allergy/AdvReac Type Severity Reaction Status Date / Time budesonide [From Symbicort] Allergy Unknown Verified 03/31/24 04:19 formoterol [From Symbicort] Allergy Unknown Verified 03/31/24 04:19 gabapentin Allergy Unknown Verified 03/31/24 04:19 ibuprofen Allergy Unknown Verified 03/31/24 04:19 Iodinated Contrast Media Allergy Unknown Verified 03/31/24 04:19 [Iodinated Contrast- Oral and IV Dye] iodine Allergy Rash/Hives Verified 03/31/24 04:19 Sulfa (Sulfonamide Allergy Rash/Hives Verified 03/31/24 04:19 Antibiotics) topiramate [From Topamax] Allergy Unknown Verified 03/31/24 04:19 lorazepam [From Ativan] AdvReac Hallucinati Verified 03/31/24 04:19 ons prednisone AdvReac dizziness Verified 03/31/24 04:19 zolpidem tartrate AdvReac Hallucinati Verified 03/31/24 04:19 [From Ambien] ons Review of Systems ROS Statement: Those systems with pertinent positive or pertinent negative responses have been documented in the HPI. Review of Systems: CONST: Denies fever EYES: Denies blurry vision ENT: Denies nasal congestion C/V: Denies Chest pain RESP: Denies shortness of breath GI: Denies abdominal pain : Denies dysuria SKIN: Denies rash. MSK: Denies joint pain. NEURO: Denies headache ROS Other: All systems not noted in ROS Statement are negative. Past Medical History Past Medical History: Atrial Fibrillation, Asthma, COPD, CVA/TIA, Dementia, Eye Disorder, GERD/Reflux, Hyperlipidemia, Pneumonia Additional Past Medical History / Comment(s): Chronic atrial fibrillation per PMH but pt has no recollection of this, bronchiectasis, essential tremors, previous TIA, chronic lumbar back pain, past 6 months R shoulder/cervical pain, balance difficulty with falls, occasional low urinary output and uses lasix prn for this, bilateral varicose veins, dysphagia-able to take pills one at a time with water, small hiatal hernia, restless leg syndrome, seasonal ALLERGIES, History of Any Multi-Drug Resistant Organisms: MRSA Date of last positivie culture/infection: 03/22/23 MDRO Source:: Left Heel Past Surgical History: Hysterectomy Additional Past Surgical History / Comment(s): 11/27/15 EGD with bx, bilateral cataracts removed with lens implants, colonoscopy with 1 benign polypectomy. Past Anesthesia/Blood Transfusion Reactions: No Reported Reaction Past Psychological History: Anxiety, Depression Smoking Status: Current some day smoker Past Alcohol Use History: None Reported Past Drug Use History: None Reported - Past Family History Father Family Medical History: Cancer Additional Family Medical History / Comment(s): Pt thinks father might have from stomach cancer. She was 2 yrs old when he . Sister(s) Family Medical History: Cancer Additional Family Medical History / Comment(s): Half sister with brain cancer. Mother Family Medical History: Dementia Additional Family Medical History / Comment(s): Mother had gallstones and a partial thyroidectomy for noncancerous reasons. General Exam - General Exam Comments Initial Comments: General: Appears in no acute distress. HEAD: Normal with no signs of head trauma. EYES: EOMI. ENT: Hearing grossly intact, normal oropharynx. RESPIRATORY: Mild end expiratory wheezing. No significant hypoxia. C/V: Regular rate and rhythm. S1 and S2 auscultated, no edema, peripheral pulses 2+ and intact throughout ABD: Abd is soft, nontender, nondistended EXT: Normal range of motion, no obvious deformity SKIN: No rashes or lesions observed on exposed skin. NEURO: Alert and oriented x 3. Mild confusion to time however this is baseline based on prior evaluation as well as prior notes. Course Vital Signs 04/10/24 04/10/24 04/10/24 05:23 05:44 05:49 Temperature 98.0 F Pulse Rate 75 66 69 Respiratory 18 Rate Blood Pressure 114/72 O2 Sat by Pulse 100 Oximetry Medical Decision Making - Medical Decision Making Was pt. sent in by a medical professional or institution (, PA, SOCIAL DIRECTOR, urgent care, hospital, or fdc...) When possible be specific @ -No Did you speak to anyone other than the patient for history (EMS, parent, family, police, friend...)? What history was obtained from this source @ -No Did you review nursing and triage notes (agree or disagree)? Why? @ -I reviewed and agree with nursing and triage notes Were old charts reviewed (outside hosp., previous admission, EMS record, old EKG, old radiological studies, urgent care reports/EKG's, fdc records)? Report findings @ -Chart reviewed including EKG. No obvious dynamic changes when compared with 2 days EKG from EKG from 03/31/2024. Differential Diagnosis (chest pain, altered mental status, abdominal pain women, abdominal pain men, vaginal bleeding, weakness, fever, dyspnea, syncope, headache, dizziness, GI bleed, back pain, seizure, CVA, palpatations, mental health, musculoskeletal)? @ -COPD, anxiety. This list is not all inclusive. EKG interpreted by me (3pts min.). @ -As above X-rays interpreted by me (1pt min.). @ -Chest x-ray reveals no obvious acute cardiopulmonary process. CT interpreted by me (1pt min.). @ -None done U/S interpreted by me (1pt. min.). @ -None done What testing was considered but not performed or refused? (CT, X-rays, U/S, labs)? Why? @ -None What meds were considered but not given or refused? Why? @ -None Did you discuss the management of the patient with other professionals (professionals i.e. , PA, SOCIAL DIRECTOR, lab, RT, psych nurse, socially responsible investment adviser, cisco consultant, teacher, alumni relations officer, caseworker intake)? Give summary @ -No Was smoking cessation discussed for >3mins.? @ -No Was critical care preformed (if so, how long)? @ -No Were there social determinants of health that impacted care today? How? (Homelessness, low income, unemployed, alcoholism, drug addiction, transp ortation, low edu. Level, literacy, decrease access to med. care, fdc, rehab)? @ -No Was there de-escalation of care discussed even if they declined (Discuss DNR or withdrawal of care, Hospice)? DNR status @ -No What co-morbidities impacted this encounter? (DM, HTN, Smoking, COPD, CAD, Cancer, CVA, ARF, Chemo, Hep., AIDS, mental health diagnosis, sleep apnea, morbid obesity)? @ -Dementia, anxiety, COPD Was patient admitted / discharged? Hospital course, mention meds given and route, prescriptions, significant lab abnormalities, going to OR and other pertinent info. @ -Patient presents emergency department with anxiety of her COPD exacerbation. Patient currently asymptomatic. He is feeling improved. She does have mild wheezing bilaterally on exam. She will be given breathing treatment, IV steroids as well as general workup. She was in agreement this plan. Vitals currently within acceptable limits. She will be given a 1 L fluid bolus, in addition to the above treatments. EKG shows no signs of acute ischemia.Chest x-ray reveals no obvious acute cardiopulmonary process. Laboratory studies are unremarkable. Viral swabs negative. On reevaluation, patient has improvement in her wheezing. Discussed her workup. She will be discharged home with diagnosis of COPD exacerbation. She was in agreement this plan. I will provide the patient with a prescription for albuterol inhaler, prednisone. I instructed the patient to follow up with their PCP in the next 1-3 days.. I explained that the patient should return to the emergency department if they experience any worsening symptoms. Strict return precautions were discussed with the patient. The patient expressed understanding of these instructions. I answered all questions that the patient had. The patient was discharged home in good condition with their prescriptions and follow up information. Undiagnosed new problem with uncertain prognosis? @ -No Drug Therapy requiring intensive monitoring for toxicity (Heparin, Nitro, Insulin, Cardizem)? @ -No Were any procedures done? @ -No Diagnosis/symptom? @ -COPD Acute, or Chronic, or Acute on Chronic? @ -Acute Uncomplicated (without systemic symptoms) or Complicated (systemic symptoms)? @ -Uncomplicated Side effects of treatment? @ -None Exacerbation, Progression, or Severe Exacerbation] @ -No Poses a threat to life or bodily function? @ -Potentially, yes - Lab Data Result diagrams: 04/10/24 05:39 04/10/24 05:39 Lab Results 04/10/24 04/10/24 Range/Units 05:39 05:39 WBC 6.7 (3.8-10.6) k/uL RBC 3.83 (3.80-5.40) m/uL Hgb 11.6 (11.4-16.0) gm/dL Hct 34.9 (34.0-46.0) % MCV 91.3 (80.0-100.0) fL MCH 30.3 (25.0-35.0) pg MCHC 33.2 (31.0-37.0) g/dL RDW 13.0 (11.5-15.5) % Plt Count 241 (150-450) k/uL MPV 7.3 Neutrophils % 59 % Lymphocytes % 26 % Monocytes % 7 % Eosinophils % 4 % Basophils % 1 % Neutrophils # 3.9 (1.3-7.7) k/uL Lymphocytes # 1.7 (1.0-4.8) k/uL Monocytes # 0.5 (0-1.0) k/uL Eosinophils # 0.3 (0-0.7) k/uL Basophils # 0.0 (0-0.2) k/uL Sodium 135 L (137-145) mmol/L Potassium 3.9 (3.5-5.1) mmol/L Chloride 103 (98-107) mmol/L Carbon Dioxide 31 H (22-30) mmol/L Anion Gap 1 mmol/L BUN 17 (7-17) mg/dL Creatinine 0.81 (0.52-1.04) mg/dL Est GFR (CKD-EPI)AfAm 78 (>60 ml/min/1.73 sqM) Est GFR (CKD-EPI)NonAf 68 (>60 ml/min/1.73 sqM) Glucose 95 (74-99) mg/dL Calcium 9.1 (8.4-10.2) mg/dL Magnesium 2.3 (1.6-2.3) mg/dL Total Bilirubin 0.5 (0.2-1.3) mg/dL AST 15 (14-36) U/L ALT 8 (4-34) U/L Alkaline Phosphatase 108 (38-126) U/L Total Protein 5.7 L (6.3-8.2) g/dL Albumin 3.6 (3.5-5.0) g/dL - EKG Data -: EKG Interpreted by Me EKG Comments: 12-lead Electrocardiogram Interpretation Note EKG was reviewed and interpreted by myself. 12-lead ECG performed at 0536 is interpreted by me as revealing normal sinus rhythm at a rate of 68 beats per minute. [place] is normal. MI interval is 150 ms, QRS duration is 88 ms, QTc is 431 ms.. There were no ST or T wave abnormalities to suggest myocardial ischemia or injury. R wave progression across the precordium was satisfactory. By my interpretation this EKG is non-diagnostic for acute ischemia. Disposition Clinical Impression: COPD (chronic obstructive pulmonary disease) Disposition: HOME SELF-CARE Condition: Good Instructions (If sedation given, give patient instructions): COPD (Chronic Obstructive Pulmonary Disease) (ED) Prescriptions: predniSONE [Deltasone] 40 mg PO DAILY 5 Days #10 tab Albuterol Inhaler [Ventolin Hfa Inhaler] 1 puff INHALATION QID #8 gm Is patient prescribed a controlled substance at d/c from ED?: No Referrals: Pablo De La Garza DO [Primary Care Provider] - 1-2 days Time of Disposition: 06:48
[2024-04-10] MEDS: ALBUTEROL NEBULIZED 2.5 MG/3 ML INHALATION STA (05:44)
[2024-04-10] MEDS: methylPREDNISolone SOD SUCCI 40 MG/ML 1 ML VIAL IV STA (05:57)
[2024-04-10] MEDS: SODIUM CHLORIDE 0.9% 1,000 ML IV STA (05:57)
[2024-04-10] MEDS: IPRATROPIUM-ALBUTEROL 3 ML NEB INHALATION STA (05:58)
[2024-04-10 06:22] LABS: Basophils % (A) 1 %; Eosinophils # (A) 0.3 k/uL (0-0.7); Eosinophils % (A) 4 %; HCT 34.9 % (34.0-46.0); HGB 11.6 gm/dL (11.4-16.0); Lymphocytes # (A) 1.7 k/uL (1.0-4.8); Lymphocytes % (A) 26 %; MCH 30.3 pg (25.0-35.0); MCHC 33.2 g/dL (31.0-37.0); MCV 91.3 fL (80.0-100.0); Mean Platelet Volume 7.3; Monocytes # (A) 0.5 k/uL (0-1.0); Monocytes % (A) 7 %; Neutrophils # (A) 3.9 k/uL (1.3-7.7); Neutrophils % (A) 59 %; Platelet Count 241 k/uL (150-450); RBC 3.83 m/uL (3.80-5.40); WBC 6.7 k/uL (3.8-10.6)
[2024-04-10 06:37] LABS: ALT 8 U/L (4-34); AST 15 U/L (14-36); African American GFR (CKD) 78 (>60 ml/min/1.73 sqM); Albumin 3.6 g/dL (3.5-5.0); Alkaline Phosphatase 108 U/L (38-126); Anion Gap 1 mmol/L; Blood Urea Nitrogen 17 mg/dL (7-17); Calcium 9.1 mg/dL (8.4-10.2); Carbon Dioxide 31 mmol/L (22-30); Chloride 103 mmol/L (98-107); Glucose 95 mg/dL (74-99); Magnesium 2.3 mg/dL (1.6-2.3); Non-African American GFR(CKD) 68 (>60 ml/min/1.73 sqM); Potassium 3.9 mmol/L (3.5-5.1); Sodium 135 mmol/L (137-145); Total Bilirubin 0.5 mg/dL (0.2-1.3); Total Protein 5.7 g/dL (6.3-8.2)
[2024-04-10 07:29] VITALS: BP 119/60; PULSE 72
--- NOTE | 2024-04-10 07:37 | XR ---
EXAM: XR Chest, 2 Views CLINICAL HISTORY: ITS.REASON XR Reason: cough TECHNIQUE: Frontal and lateral views of the chest. COMPARISON: X-ray dated 03/31/2024 FINDINGS: Lungs: Chronic lung markings are seen bilaterally. No consolidation. Pleural space: Unremarkable. No pneumothorax. Heart: Mild enlargement of the cardiac silhouette. Mediastinum: Unremarkable. Normal mediastinal contour. Bones/joints: Degenerative changes are seen within the left shoulder and spine. Multiple compression deformities are seen within the mid to lower thoracic spine. Vasculature: Calcifications overlie the aorta. IMPRESSION: No acute findings in the chest.
== END 2024-04-10 08:22 | disposition home or self-care (01) ==
LOC: EC 05:20
DX: J44.89 Other specified chronic obstructive pulmonary disease (principal); F41.9 Anxiety disorder, unspecified; F03.90 Unspecified dementia, unspecified severity, without behavioral disturbance, psychotic disturbance, mood disturbance, and anxiety; F17.200 Nicotine dependence, unspecified, uncomplicated; Z88.1 Allergy status to other antibiotic agents; Z88.2 Allergy status to sulfonamides; Z88.8 Allergy status to other drugs, medicaments and biological substances; Z91.041 Radiographic dye allergy status; Z86.73 Personal history of transient ischemic attack (TIA), and cerebral infarction without residual deficits
CPT/HCPCS: 36415; 94640; 93005; 80053; 83735; 85025; 87636; 71046; 99285; 96374; 96361; J2919

== ENCOUNTER 2024-04-17 07:51 | Emergency (ER) | payer MEDICARE ==
[2024-04-17 07:57] VITALS: RESP 18; TEMP 98.3
--- NOTE | 2024-04-17 08:29 | ED ---
General Adult HPI - General Chief complaint: Anxiety Stated complaint: Anxiety Time Seen by Provider: 04/17/24 08:00 Source: patient, EMS, RN notes reviewed, old records reviewed Mode of arrival: EMS Limitations: no limitations - History of Present Illness Initial comments: This is an 83-year-old female who presents to the emergency department the past medical history significant for anxiety. Patient states she got up and thought she was going to today she cannot describe why she did mention that her toes are very cold well. Patient states she has no chest pain difficulty breathing or shortness of breath. Patient denies any recent fever chills or cough. Patient denies abdominal pain patient has any nausea vomiting diarrhea. Patient states she took a Xanax this morning that her brother gave her and she started feeling better after that. Patient states currently she does not feel bad at all. - Related Data Home Medications Medication Instructions Recorded Confirmed Omeprazole 40 mg PO DAILY 08/24/17 03/02/24 FLUoxetine HCL [PROzac] 40 mg PO DAILY 05/21/21 03/02/24 busPIRone HCl [Buspar] 5 mg PO BID 10/30/21 03/02/24 Albuterol Nebulized [Ventolin 2.5 mg INHALATION RT-TID PRN 07/27/22 03/02/24 Nebulized] Fluticasone/Umeclidin/Vilanter 1 puff INHALATION RT-DAILY 11/14/22 03/02/24 [[place] Goldenta 100-62.5-25] Memantine [Namenda] 10 mg PO DAILY 04/22/23 03/02/24 traMADol HCl [Ultram] 50 mg PO BID PRN 04/22/23 03/02/24 Acetaminophen [Tylenol 8 Hour] 650 mg PO Q8H PRN 01/17/24 03/02/24 Albuterol Inhaler [Ventolin Hfa 1 - 2 puff INHALATION RT-Q4H PRN 01/17/24 03/02/24 Inhaler] Propranolol [Inderal] 10 mg PO TID 01/17/24 03/02/24 ALPRAZolam [Xanax] 0.5 mg PO TID PRN 03/02/24 03/02/24 Previous Rx's Medication Instructions Recorded Apixaban [Eliquis] 2.5 mg PO BID 30 Days #60 tab 10/16/23 Atorvastatin [Lipitor] 40 mg PO HS #30 tab 03/03/24 Albuterol Inhaler [Ventolin Hfa 1 puff INHALATION QID #8 gm 04/10/24 Inhaler] predniSONE [Deltasone] 40 mg PO DAILY 5 Days #10 tab 04/10/24 Allergies Allergy/AdvReac Type Severity Reaction Status Date / Time budesonide [From Symbicort] Allergy Unknown Verified 03/31/24 04:19 formoterol [From Symbicort] Allergy Unknown Verified 03/31/24 04:19 gabapentin Allergy Unknown Verified 03/31/24 04:19 ibuprofen Allergy Unknown Verified 03/31/24 04:19 Iodinated Contrast Media Allergy Unknown Verified 03/31/24 04:19 [Iodinated Contrast- Oral and IV Dye] iodine Allergy Rash/Hives Verified 03/31/24 04:19 Sulfa (Sulfonamide Allergy Rash/Hives Verified 03/31/24 04:19 Antibiotics) topiramate [From Topamax] Allergy Unknown Verified 03/31/24 04:19 lorazepam [From Ativan] AdvReac Hallucinati Verified 03/31/24 04:19 ons prednisone AdvReac dizziness Verified 03/31/24 04:19 zolpidem tartrate AdvReac Hallucinati Verified 03/31/24 04:19 [From Ambien] ons Review of Systems ROS Statement: Those systems with pertinent positive or pertinent negative responses have been documented in the HPI. ROS Other: All systems not noted in ROS Statement are negative. Past Medical History Past Medical History: Atrial Fibrillation, Asthma, COPD, CVA/TIA, Dementia, Eye Disorder, GERD/Reflux, Hyperlipidemia, Pneumonia Additional Past Medical History / Comment(s): Chronic atrial fibrillation per PMH but pt has no recollection of this, bronchiectasis, essential tremors, previous TIA, chronic lumbar back pain, past 6 months R shoulder/cervical pain, balance difficulty with falls, occasional low urinary output and uses lasix prn for this, bilateral varicose veins, dysphagia-able to take pills one at a time with water, small hiatal hernia, restless leg syndrome, seasonal ALLERGIES, History of Any Multi-Drug Resistant Organisms: MRSA Date of last positivie culture/infection: 03/22/23 MDRO Source:: Left Heel Past Surgical History: Hysterectomy Additional Past Surgical History / Comment(s): 11/27/15 EGD with bx, bilateral cataracts removed with lens implants, colonoscopy with 1 benign polypectomy. Past Anesthesia/Blood Transfusion Reactions: No Reported Reaction Past Psychological History: Anxiety, Depression Smoking Status: Current some day smoker Past Alcohol Use History: None Reported Past Drug Use History: None Reported - Past Family History Father Family Medical History: Cancer Additional Family Medical History / Comment(s): Pt thinks father might have from stomach cancer. She was 2 yrs old when he . Sister(s) Family Medical History: Cancer Additional Family Medical History / Comment(s): Half sister with brain cancer. Mother Family Medical History: Dementia Additional Family Medical History / Comment(s): Mother had gallstones and a partial thyroidectomy for noncancerous reasons. General Exam - General Exam Comments Initial Comments: GENERAL: Patient is well-developed and well-nourished. Patient is nontoxic and well-h ydrated and is in mild distress. ENT: Neck is soft and supple. No significant lymphadenopathy is noted. Oropharynx is clear. Moist mucous membranes. Neck has full range of motion without eliciting any pain. EYES: The sclera were anicteric and conjunctiva were pink and moist. Extraocular move ments were intact and pupils were equal round and reactive to light. Eyelids were unremarkable. PULMONARY: Unlabored respirations. Good breath sounds bilaterally. No audible rales rhonchi or wheezing was noted. CARDIOVASCULAR: There is a regular rate and rhythm without any murmurs gallops or rubs. ABDOMEN: Soft and nontender with normal bowel sounds. SKIN: Skin is clear with no lesions or rashes and otherwise unremarkable. NEUROLOGIC: Patient is alert and oriented x3. Cranial nerves II through XII are grossly intact. Motor and sensory are also intact. Normal speech, volume and content. Symmetrical smile. MUSCULOSKELETAL: Normal extremities with adequate strength and full range of motion. No lower extremity swelling or edema. No calf tenderness. LYMPHATICS: No significant lymphadenopathy is noted PSYCHIATRIC: Patient is mildly anxious Limitations: no limitations Course Vital Signs 04/17/24 07:53 Temperature 98.3 F Pulse Rate 61 Respiratory 18 Rate Blood Pressure 125/64 O2 Sat by Pulse 98 Oximetry Medical Decision Making - Medical Decision Making Was patient admitted / discharged? Hospital course, mention meds given and route, prescriptions, significant lab abnormalities, going to OR and other pertinent info. @ -Patient was asymptomatic throughout her ED stay. Patient felt at her baseline. Patient ate breakfast and had no problems. Undiagnosed new problem with uncertain prognosis? @ -No Drug Therapy requiring intensive monitoring for toxicity (Heparin, Nitro, Insulin, Cardizem)? @ -No Were any procedures done? @ -No Diagnosis/symptom? @ -Anxiety Acute, or Chronic, or Acute on Chronic? @ -Acute Uncomplicated (without systemic symptoms) or Complicated (systemic symptoms)? @ -Uncomplicated Side effects of treatment? @ -No Exacerbation, Progression, or Severe Exacerbation? @ -No Poses a threat to life or bodily function? How? (Chest pain, [place], [place], pneumonia, PE, COPD, DKA, ARF, appy, cholecystitis, CVA, Diverticulitis, Homicidal, Suicidal, threat to staff... and all critical care pts) @ -No - Lab Data Result diagrams: 04/17/24 08:32 04/17/24 08:32 Lab Results 04/17/24 04/17/24 Range/Units 08:32 08:32 WBC 5.1 (3.8-10.6) k/uL RBC 4.13 (3.80-5.40) m/uL Hgb 12.4 (11.4-16.0) gm/dL Hct 37.3 (34.0-46.0) % MCV 90.2 (80.0-100.0) fL MCH 29.9 (25.0-35.0) pg MCHC 33.2 (31.0-37.0) g/dL RDW 13.1 (11.5-15.5) % Plt Count 231 (150-450) k/uL MPV 7.0 Neutrophils % 66 % Lymphocytes % 22 % Monocytes % 7 % Eosinophils % 2 % Basophils % 0 % Neutrophils # 3.4 (1.3-7.7) k/uL Lymphocytes # 1.1 (1.0-4.8) k/uL Monocytes # 0.4 (0-1.0) k/uL Eosinophils # 0.1 (0-0.7) k/uL Basophils # 0.0 (0-0.2) k/uL Sodium 137 (137-145) mmol/L Potassium 3.6 (3.5-5.1) mmol/L Chloride 106 (98-107) mmol/L Carbon Dioxide 27 (22-30) mmol/L Anion Gap 4 mmol/L BUN 15 (7-17) mg/dL Creatinine 0.81 (0.52-1.04) mg/dL Est GFR (CKD-EPI)AfAm 78 (>60 ml/min/1.73 sqM) Est GFR (CKD-EPI)NonAf 68 (>60 ml/min/1.73 sqM) Glucose 103 H (74-99) mg/dL Calcium 9.2 (8.4-10.2) mg/dL Total Bilirubin 0.9 (0.2-1.3) mg/dL AST 15 (14-36) U/L ALT 9 (4-34) U/L Alkaline Phosphatase 96 (38-126) U/L Total Protein 5.9 L (6.3-8.2) g/dL Albumin 3.7 (3.5-5.0) g/dL Disposition Clinical Impression: Acute anxiety Disposition: HOME SELF-CARE Instructions (If sedation given, give patient instructions): Generalized Anxiety Disorder (ED) Is patient prescribed a controlled substance at d/c from ED?: No Referrals: Pablo De La Garza DO [Primary Care Provider] - 1-2 days Time of Disposition: 09:42
[2024-04-17 08:45] LABS: Basophils % (A) 0 %; Eosinophils # (A) 0.1 k/uL (0-0.7); Eosinophils % (A) 2 %; HCT 37.3 % (34.0-46.0); HGB 12.4 gm/dL (11.4-16.0); Lymphocytes # (A) 1.1 k/uL (1.0-4.8); Lymphocytes % (A) 22 %; MCH 29.9 pg (25.0-35.0); MCHC 33.2 g/dL (31.0-37.0); MCV 90.2 fL (80.0-100.0); Monocytes # (A) 0.4 k/uL (0-1.0); Monocytes % (A) 7 %; Neutrophils # (A) 3.4 k/uL (1.3-7.7); Neutrophils % (A) 66 %; Platelet Count 231 k/uL (150-450); RBC 4.13 m/uL (3.80-5.40); RDW 13.1 % (11.5-15.5); WBC 5.1 k/uL (3.8-10.6)
[2024-04-17 09:06] LABS: ALT 9 U/L (4-34); AST 15 U/L (14-36); African American GFR (CKD) 78 (>60 ml/min/1.73 sqM); Albumin 3.7 g/dL (3.5-5.0); Alkaline Phosphatase 96 U/L (38-126); Anion Gap 4 mmol/L; Blood Urea Nitrogen 15 mg/dL (7-17); Calcium 9.2 mg/dL (8.4-10.2); Carbon Dioxide 27 mmol/L (22-30); Chloride 106 mmol/L (98-107); Glucose 103 mg/dL (74-99); Non-African American GFR(CKD) 68 (>60 ml/min/1.73 sqM); Potassium 3.6 mmol/L (3.5-5.1); Sodium 137 mmol/L (137-145); Total Bilirubin 0.9 mg/dL (0.2-1.3); Total Protein 5.9 g/dL (6.3-8.2)
[2024-04-17 10:52] VITALS: BP 122/70; PULSE 64
== END 2024-04-17 10:52 | disposition home or self-care (01) ==
LOC: EC 07:51
DX: F41.9 Anxiety disorder, unspecified (principal); F17.200 Nicotine dependence, unspecified, uncomplicated; Z86.73 Personal history of transient ischemic attack (TIA), and cerebral infarction without residual deficits; Z88.1 Allergy status to other antibiotic agents; Z88.2 Allergy status to sulfonamides; Z88.8 Allergy status to other drugs, medicaments and biological substances; Z91.041 Radiographic dye allergy status
CPT/HCPCS: 36415; 80053; 85025; 99283

== ENCOUNTER 2024-04-27 04:26 | Emergency (ER) | payer MEDICARE ==
[2024-04-27 04:38] VITALS: TEMP 98
--- NOTE | 2024-04-27 05:25 | ED ---
General Adult HPI - General Chief complaint: Recheck/Abnormal Lab/Rx Stated complaint: Weakness Time Seen by Provider: 04/27/24 05:04 Source: patient, EMS Mode of arrival: EMS Limitations: no limitations - History of Present Illness Initial comments: Hx limited by patient's dementia. EMS report patient was sent in because she called her son and stated she was cold. Patient tells me she has left lower quadrant pain and endorses nausea. Denies vomiting, hematochezia, melena or diarrhea. Denies chest pain or shortness of breath. Denies dysuria. Currently oriented to self and knows she is in the hospital. She is unsure which city or the date. - Related Data Home Medications Medication Instructions Recorded Confirmed Omeprazole 40 mg PO DAILY 08/24/17 03/02/24 FLUoxetine HCL [PROzac] 40 mg PO DAILY 05/21/21 03/02/24 busPIRone HCl [Buspar] 5 mg PO BID 10/30/21 03/02/24 Albuterol Nebulized [Ventolin 2.5 mg INHALATION RT-TID PRN 07/27/22 03/02/24 Nebulized] Fluticasone/Umeclidin/Vilanter 1 puff INHALATION RT-DAILY 11/14/22 03/02/24 [Treleflorence Ellipta 100-62.5-25] Memantine [Namenda] 10 mg PO DAILY 04/22/23 03/02/24 traMADol HCl [Ultram] 50 mg PO BID PRN 04/22/23 03/02/24 Acetaminophen [Tylenol 8 Hour] 650 mg PO Q8H PRN 01/17/24 03/02/24 Albuterol Inhaler [Ventolin Hfa 1 - 2 puff INHALATION RT-Q4H PRN 01/17/24 03/02/24 Inhaler] Propranolol [Inderal] 10 mg PO TID 01/17/24 03/02/24 ALPRAZolam [Xanax] 0.5 mg PO TID PRN 03/02/24 03/02/24 Previous Rx's Medication Instructions Recorded Apixaban [Eliquis] 2.5 mg PO BID 30 Days #60 tab 10/16/23 Atorvastatin [Lipitor] 40 mg PO HS #30 tab 03/03/24 Albuterol Inhaler [Ventolin Hfa 1 puff INHALATION QID #8 gm 04/10/24 Inhaler] predniSONE [Deltasone] 40 mg PO DAILY 5 Days #10 tab 04/10/24 polyethylene glycoL 3350 [Miralax] 17 gm PO DAILY #14 packet 04/27/24 Allergies Allergy/AdvReac Type Severity Reaction Status Date / Time budesonide [From Symbicort] Allergy Unknown Verified 03/31/24 04:19 formoterol [From Symbicort] Allergy Unknown Verified 03/31/24 04:19 gabapentin Allergy Unknown Verified 03/31/24 04:19 ibuprofen Allergy Unknown Verified 03/31/24 04:19 Iodinated Contrast Media Allergy Unknown Verified 03/31/24 04:19 [Iodinated Contrast- Oral and IV Dye] iodine Allergy Rash/Hives Verified 03/31/24 04:19 Sulfa (Sulfonamide Allergy Rash/Hives Verified 03/31/24 04:19 Antibiotics) topiramate [From Topamax] Allergy Unknown Verified 03/31/24 04:19 lorazepam [From Ativan] AdvReac Hallucinati Verified 03/31/24 04:19 ons prednisone AdvReac dizziness Verified 03/31/24 04:19 zolpidem tartrate AdvReac Hallucinati Verified 03/31/24 04:19 [From Ambien] ons Review of Systems ROS Statement: Those systems with pertinent positive or pertinent negative responses have been documented in the HPI. ROS Other: All systems not noted in ROS Statement are negative. Past Medical History Past Medical History: Atrial Fibrillation, Asthma, COPD, CVA/TIA, Dementia, Eye Disorder, GERD/Reflux, Hyperlipidemia, Pneumonia Additional Past Medical History / Comment(s): Chronic atrial fibrillation per PMH but pt has no recollection of this, bronchiectasis, essential tremors, previous TIA, chronic lumbar back pain, past 6 months R shoulder/cervical pain, balance difficulty with falls, occasional low urinary output and uses lasix prn for this, bilateral varicose veins, dysphagia-able to take pills one at a time with water, small hiatal hernia, restless leg syndrome, seasonal ALLERGIES, History of Any Multi-Drug Resistant Organisms: MRSA Date of last positivie culture/infection: 03/22/23 MDRO Source:: Left Heel Past Surgical History: Hysterectomy Additional Past Surgical History / Comment(s): 11/27/15 EGD with bx, bilateral cataracts removed with lens implants, colonoscopy with 1 benign polypectomy. Past Anesthesia/Blood Transfusion Reactions: No Reported Reaction Past Psychological History: Anxiety, Depression Smoking Status: Current some day smoker Past Alcohol Use History: None Reported Past Drug Use History: None Reported - Past Family History Father Family Medical History: Cancer Additional Family Medical History / Comment(s): Pt thinks father might have from stomach cancer. She was 2 yrs old when he . Sister(s) Family Medical History: Cancer Additional Family Medical History / Comment(s): Half sister with brain cancer. Mother Family Medical History: Dementia Additional Family Medical History / Comment(s): Mother had gallstones and a partial thyroidectomy for noncancerous reasons. General Exam - General Exam Comments Initial Comments: PE: CONSTITUTIONAL: No apparent distress, well appearing SKIN: Warm, dry, no jaundice, hives or petechiae EYES: Pupils are equally round, extraocular movements intact without nystagmus, clear conjunctiva, non-icteric sclera HENT: Normocephalic, atraumatic, moist mucus membranes, oropharynx clear without exudates NECK: , Full range of motion, normal appearance PULMONARY: Clear to auscultation without wheezes, rhonchi, or rales, normal excursion, no accessory muscle use and no stridor CARDIOVASCULAR: Regular rate, rhythm, normal S1 and S2. No appreciated murmurs, rubs or gallops. Strong radial pulses with intact distal perfusion. No lower extremity edema GASTROINTESTINAL: Soft, active bowel sounds throughout, minimal TTP LLQ, non- distended, no palpable masses, no rebound or guarding. No hepatosplenomegaly GENITOURINARY: MUSCULOSKELETAL: Extremities have no gross deformity, no edema, redness, or swelling. No calf swelling NEUROLOGIC:_a/o x 1-2, self and knows she is in the hospital, GCS 14- unsure why she is in the hospital, pleasantly confused mentation and clear speech. Moves all extremities x 4 without motor or sensory deficit PSYCHIATRIC:_normal mood and affect, thought process is linear, she is unsure why she is in the hospital Limitations: no limitations Course Vital Signs 04/27/24 04/27/24 04/27/24 04:29 05:05 06:00 Temperature 98.0 F Pulse Rate 60 58 L 55 L Respiratory 16 16 16 Rate Blood Pressure 133/71 144/84 153/70 O2 Sat by Pulse 100 100 100 Oximetry 04/27/24 09:40 Temperature Pulse Rate 78 Respiratory 18 Rate Blood Pressure 155/100 O2 Sat by Pulse 97 Oximetry Medical Decision Making - Medical Decision Making Was pt. sent in by a medical professional or institution (, JEAN CLAUDE, PASTE UP ARTIST APPRENTICE, urgent care, hospital, or correction...) When possible be specific @ -No Did you speak to anyone other than the patient for history (EMS, parent, family, police, friend...)? What history was obtained from this source @ -No Did you review nursing and triage notes (agree or disagree)? Why? @ -I reviewed nursing and triage notes- states here because pt said she was cold, pt unsure why she is here when I ask but during ROS does endorse LLQ abdominal pain Were old charts reviewed (outside hosp., previous admission, EMS record, old EKG, old radiological studies, urgent care reports/EKG's, correction records)? Report findings Medical records reviewed - pt well known to our ED, was last here for anxiety on 04.17.24 Differential Diagnosis (chest pain, altered mental status, abdominal pain women, abdominal pain men, vaginal bleeding, weakness, fever, dyspnea, syncope, h eadache, dizziness, GI bleed, back pain, seizure, CVA, palpatations, mental health, musculoskeletal)? @ Differential diagnosis remains broad however top considerations include constipation, diverticulitis, ureterolithiasis, UTI, bowel obstruction, this is not an all inclusive list EKG interpreted by me (3pts min.). @ -As above X-rays interpreted by me (1pt min.). @ -None done CT interpreted by me (1pt min.). @ No free air, no evidence of obstruction or perforation, no hydronephrosis U/S interpreted by me (1pt. min.). @ -None done What testing was considered but not performed or refused? (CT, X-rays, U/S, labs)? Why? @ Did consider contrast enhanced CT however pt has documented "unknown" contrast allergy, therefor the risk of potential anaphylactic reaction to contrast does not outweigh potential benefit What meds were considered but not given or refused? Why? @ -None Did you discuss the management of the patient with other professionals (professionals i.e. , JEAN CLAUDE, PASTE UP ARTIST APPRENTICE, lab, RT, psych nurse, social worker school, packaging manager, teacher, digital controls technical officer, case picker)? Give summary @ -No Was smoking cessation discussed for >3mins.? @ -No Was critical care preformed (if so, how long)? @ -No Were there social determinants of health that impacted care today? How? (Homelessness, low income, unemployed, alcoholism, drug addiction, transportation, low edu. Level, literacy, decrease access to med. care, shelter, rehab)? @ -No Was there de-escalation of care discussed even if they declined (Discuss DNR or withdrawal of care, Hospice)? @ -No What co-morbidities impacted this encounter? (DM, HTN, Smoking, COPD, CAD, Cancer, CVA, ARF, Chemo, Hep., AIDS, mental health diagnosis, sleep apnea, morbid obesity)? @ Dementia Was patient admitted / discharged? Hospital course, mention meds given and route, prescriptions, significant lab abnormalities, going to OR and other pertinent info. @Discharged- Pt is a pleasant 83 y/o female PMH dementia, a fib, prior CVA, GERD reportedly presenting today for "feeling cold". Pt resting comfortably on my assessment. VS w/in acceptable limits. Unsure why she is here however on ROS pt endorsed abdominal pain. Pt's abdomen soft, minimally TTP in the LLQ. Attemp angela to contact pt's son for further hx without answer. Ordered comprehensive labs, CT abdomen/pelvis. Pt agreeable with POC. Labs reassuring. UA with small amount of blood, neg nitrites and leuk esterase, rare bacteria, sent for culture. CT shows fecal stasis/constipation, subacute thoracic spine fracture. Pt denies back pain to me. Plan for discharge home with miralax. Pt agreeable with POC. Attempted to contact pt's son a second time to ensure no further concerns however no answer. Pt discharged in stable condition. Undiagnosed new problem with uncertain prognosis? @ -No Drug Therapy requiring intensive monitoring for toxicity (Heparin, Nitro, Insulin, Cardizem)? @ -No Were any procedures done? @ -No Diagnosis/symptom? @Constipation Acute, or Chronic, or Acute on Chronic? @ -acute Uncomplicated (without systemic symptoms) or Complicated (systemic symptoms)? @ -uncomplicated Side effects of treatment? @ -No Exacerbation, Progression, or Severe Exacerbation? @ -No Poses a threat to life or bodily function? How? (Chest pain, [place], [place], pneumonia, PE, COPD, DKA, ARF, appy, cholecystitis, CVA, Diverticulitis, Homicidal, Suicidal, threat to staff... and all critical care pts) @ -No - Lab Data Result diagrams: 04/27/24 04:38 04/27/24 04:38 Lab Results 04/27/24 04/27/24 04/27/24 Range/Units 04:38 04:38 04:38 WBC 5.6 (3.8-10.6) k/uL RBC 3.98 (3.80-5.40) m/uL Hgb 12.1 (11.4-16.0) gm/dL Hct 35.6 (34.0-46.0) % MCV 89.5 (80.0-100.0) fL MCH 30.3 (25.0-35.0) pg MCHC 33.9 (31.0-37.0) g/dL RDW 13.8 (11.5-15.5) % Plt Count 212 (150-450) k/uL MPV 7.9 Neutrophils % 54 % Lymphocytes % 30 % Monocytes % 9 % Eosinophils % 3 % Basophils % 0 % Neutrophils # 3.0 (1.3-7.7) k/uL Lymphocytes # 1.7 (1.0-4.8) k/uL Monocytes # 0.5 (0-1.0) k/uL Eosinophils # 0.2 (0-0.7) k/uL Basophils # 0.0 (0-0.2) k/uL PT 10.7 (10.0-12.5) sec INR 1.0 (<1.2) APTT 23.0 (22.0-30.0) sec Sodium (137-145) mmol/L Potassium (3.5-5.1) mmol/L Chloride (98-107) mmol/L Carbon Dioxide (22-30) mmol/L Anion Gap mmol/L BUN (7-17) mg/dL Creatinine (0.52-1.04) mg/dL Est GFR (CKD-EPI)AfAm (>60 ml/min/1.73 sqM) Est GFR (CKD-EPI)NonAf (>60 ml/min/1.73 sqM) Glucose (74-99) mg/dL Calcium (8.4-10.2) mg/dL Total Bilirubin (0.2-1.3) mg/dL AST (14-36) U/L ALT (4-34) U/L Alkaline Phosphatase (38-126) U/L Total Protein (6.3-8.2) g/dL Albumin (3.5-5.0) g/dL Amylase (30-110) U/L Lipase (23-300) U/L Urine Color Colorless Urine Appearance Clear (Clear) Urine pH 6.5 (5.0-8.0) Ur Specific [place] 1.004 (1.001-1.035) Urine Protein Negative (Negative) Urine Glucose (UA) Negative (Negative) Urine Ketones Negative (Negative) Urine Blood Small H (Negative) Urine Nitrite Negative (Negative) Urine Bilirubin Negative (Negative) Urine Urobilinogen <2.0 (<2.0) mg/dL Ur Leukocyte Esterase Negative (Negative) Urine RBC 2 (0-5) /hpf Urine Bacteria Rare H (None) /hpf 04/27/24 Range/Units 04:38 WBC (3.8-10.6) k/uL RBC (3.80-5.40) m/uL Hgb (11.4-16.0) gm/dL Hct (34.0-46.0) % MCV (80.0-100.0) fL MCH (25.0-35.0) pg MCHC (31.0-37.0) g/dL RDW (11.5-15.5) % Plt Count (150-450) k/uL MPV Neutrophils % % Lymphocytes % % Monocytes % % Eosinophils % % Basophils % % Neutrophils # (1.3-7.7) k/uL Lymphocytes # (1.0-4.8) k/uL Monocytes # (0-1.0) k/uL Eosinophils # (0-0.7) k/uL Basophils # (0-0.2) k/uL PT (10.0-12.5) sec INR (<1.2) APTT (22.0-30.0) sec Sodium 137 (137-145) mmol/L Potassium 4.0 (3.5-5.1) mmol/L Chloride 103 (98-107) mmol/L Carbon Dioxide 27 (22-30) mmol/L Anion Gap 7 mmol/L BUN 13 (7-17) mg/dL Creatinine 0.71 (0.52-1.04) mg/dL Est GFR (CKD-EPI)AfAm >90 (>60 ml/min/1.73 sqM) Est GFR (CKD-EPI)NonAf 79 (>60 ml/min/1.73 sqM) Glucose 82 (74-99) mg/dL Calcium 8.9 (8.4-10.2) mg/dL Total Bilirubin 0.5 (0.2-1.3) mg/dL AST 15 (14-36) U/L ALT 9 (4-34) U/L Alkaline Phosphatase 71 (38-126) U/L Total Protein 5.7 L (6.3-8.2) g/dL Albumin 3.5 (3.5-5.0) g/dL Amylase 32 (30-110) U/L Lipase 43 (23-300) U/L Urine Color Urine Appearance (Clear) Urine pH (5.0-8.0) Ur Specific [place] (1.001-1.035) Urine Protein (Negative) Urine Glucose (UA) (Negative) Urine Ketones (Negative) Urine Blood (Negative) Urine Nitrite (Negative) Urine Bilirubin (Negative) Urine Urobilinogen (<2.0) mg/dL Ur Leukocyte Esterase (Negative) Urine RBC (0-5) /hpf Urine Bacteria (None) /hpf Disposition Clinical Impression: Constipation Disposition: HOME SELF-CARE Condition: Good Instructions (If sedation given, give patient instructions): Constipation (ED) Additional Instructions: Every disease is a spectrum and a small chance still exists that a serious condition could develop, for this reason, please monitor yourself closely for new, changing or worsening symptoms, symptoms that persist beyond 48 hours, no bowel movement for greater than 1 week, fever, inability to tolerate/keep down fluids or your medications, inability to follow up with outpatient providers as instructed and should you experience these symptoms or should you have any further concerns for your wellbeing please return to the ED or call 911 immediately. PLEASE call your primary care physician as soon as possible to arrange / discuss plan for followup appointment. Appointment in the next 1-3 days is strongly encouraged if possible. PLEASE let us know here before you leave if there is anything further we can do to be of any assistance. Take care and feel Better! Prescriptions: polyethylene glycoL 3350 [Miralax] 17 gm PO DAILY #14 packet Is patient prescribed a controlled substance at d/c from ED?: No Referrals: Pablo De La Garza DO [Primary Care Provider] - 1-2 days
[2024-04-27] MEDS: ACETAMINOPHEN TAB 325 MG TAB PO STA (05:39)
[2024-04-27] MEDS: SODIUM CHLORIDE 0.9% 500 ML 500 ML IV STA (05:39)
[2024-04-27 05:43] LABS: Basophils % (A) 0 %; Eosinophils # (A) 0.2 k/uL (0-0.7); Eosinophils % (A) 3 %; HCT 35.6 % (34.0-46.0); HGB 12.1 gm/dL (11.4-16.0); Lymphocytes # (A) 1.7 k/uL (1.0-4.8); Lymphocytes % (A) 30 %; MCH 30.3 pg (25.0-35.0); MCHC 33.9 g/dL (31.0-37.0); MCV 89.5 fL (80.0-100.0); Mean Platelet Volume 7.9; Monocytes # (A) 0.5 k/uL (0-1.0); Monocytes % (A) 9 %; Neutrophils % (A) 54 %; Platelet Count 212 k/uL (150-450); RBC 3.98 m/uL (3.80-5.40); RDW 13.8 % (11.5-15.5); WBC 5.6 k/uL (3.8-10.6)
[2024-04-27 05:48] LABS: Appearance,Urine Clear (Clear); Bacteria,Urine Rare /hpf; Bilirubin,Urine Negative (Negative); Blood,Urine Small (Negative); Color,Urine Colorless; Glucose,Urine (UA) Negative (Negative); Ketones,Urine Negative (Negative); Leukocyte Esterase,Urine Negative (Negative); Nitrite,Urine Negative (Negative); PH, Urine 6.5 (5.0-8.0); Protein,Urine Negative (Negative); RBC,Urine 2 /hpf (0-5); Specific Gravity,Urine 1.004 (1.001-1.035); Urobilinogen,Urine <2.0 mg/dL (<2.0)
[2024-04-27 05:49] LABS: ALT 9 U/L (4-34); AST 15 U/L (14-36); African American GFR (CKD) >90 (>60 ml/min/1.73 sqM); Albumin 3.5 g/dL (3.5-5.0); Alkaline Phosphatase 71 U/L (38-126); Amylase 32 U/L (30-110); Anion Gap 7 mmol/L; Blood Urea Nitrogen 13 mg/dL (7-17); Calcium 8.9 mg/dL (8.4-10.2); Carbon Dioxide 27 mmol/L (22-30); Chloride 103 mmol/L (98-107); Glucose 82 mg/dL (74-99); Lipase 43 U/L (23-300); Non-African American GFR(CKD) 79 (>60 ml/min/1.73 sqM); Sodium 137 mmol/L (137-145); Total Bilirubin 0.5 mg/dL (0.2-1.3); Total Protein 5.7 g/dL (6.3-8.2)
[2024-04-27 05:50] LABS: Prothrombin Time 10.7 sec (10.0-12.5)
--- NOTE | 2024-04-27 06:52 | CT ---
EXAMINATION TYPE: CT abdomen pelvis wo con DATE OF EXAM: 04/27/2024 HISTORY: pt states her son called the ambulance because she "was cold". pt is AOx2. LLQ abdominal janna n CT DLP: 375.7 mGycm. Automated Exposure Control for Dose Reduction was Utilized. TECHNIQUE: CT scan of the abdomen and pelvis is performed without oral or IV contrast. COMPARISON: MRCP July 25, 2023. CT abdomen and pelvis June 02, 2023 FINDINGS: Within the limitations of a non-contrast study, the following observations are made. LUNG BASES: Mild bibasilar linear scarring and/or atelectasis. LIVER/GB: No significant abnormality is appreciated. PANCREAS: No significant abnormality is seen. SPLEEN: No significant abnormality is seen. ADRENALS: No significant abnormality is seen. KIDNEYS: No significant abnormality is seen. BOWEL: Moderate-sized hiatal hernia is redemonstrated. Approximately 3.2 cm gas-filled diverticulum f rom second portion of duodenum axial image 45 redemonstrated. Smaller diverticulum along the third po rtion of axial image 49 is redemonstrated. No abnormal small or large bowel dilatation. Mild to moder ate diffuse colonic fecal prominence is seen. Few distal colonic diverticula. No CT evidence for acu te diverticulitis. GENITAL ORGANS: Uterus is surgically absent or markedly atrophic. LYMPH NODES: No greater than 1cm abdominal or pelvic lymph nodes are appreciated. OSSEOUS STRUCTURES: Surgical change right hip is partially imaged similar to prior. Multilevel mild t o moderate compression fracture deformities are redemonstrated in the visualized thoracolumbar spine. There is mild to moderate height loss in the anterior inferior L1 vertebra which is new from prior s tudy; but no linear lucency to suggest acute compression type fracture. Similar mild height loss at T 10 vertebra superior endplate is new from prior study, linear sclerosis noted suggesting subacute in age. OTHER: Moderate peripheral calcified plaque along the ectatic abdominal aorta is redemonstrated. No g reater than 3.0 cm aneurysm. IMPRESSION: 1. Mild to moderate diffuse colonic fecal stasis or constipation. No bowel obstruction. No suspicious new or acute finding otherwise seen. 2. Multiple mild/moderate compression type fractures in the thoracolumbar spine with 2 new from most recent CT, one at T10 level thought subacute in age. [facility], , 04/27/2024 6:49 AM
[2024-04-27 10:12] VITALS: BP 155/100; PULSE 78; RESP 18
== END 2024-04-27 09:40 | disposition home or self-care (01) ==
LOC: EC 04:26
DX: K59.00 Constipation, unspecified (principal); F17.200 Nicotine dependence, unspecified, uncomplicated; Z88.1 Allergy status to other antibiotic agents; Z88.2 Allergy status to sulfonamides; Z88.8 Allergy status to other drugs, medicaments and biological substances; Z91.041 Radiographic dye allergy status; Z86.73 Personal history of transient ischemic attack (TIA), and cerebral infarction without residual deficits
CPT/HCPCS: 36415; 74176; 80053; 81001; 82150; 83690; 85025; 85610; 85730; 87086; 96360; 99285

== ENCOUNTER 2024-05-06 02:59 | Emergency (ER) | payer MEDICARE ==
[2024-05-06 03:10] VITALS: RESP 18; TEMP 97.8
--- NOTE | 2024-05-06 03:32 | ED ---
Anxiety HPI - General Chief Complaint: Anxiety Stated Complaint: Anxiety Time Seen by Provider: 05/06/24 03:01 Source: EMS, RN notes reviewed, old records reviewed Mode of arrival: EMS Limitations: no limitations - History of Present Illness Initial Comments: This is a 83 female to the ER for evaluation of severe anxiety well-known to this emergency department for complaints that wake her up in the middle of the night. Patient on arrival to the ER thinks that she took too much melatonin was concerned over melatonin. Patient is told here in the ER that she cannot overdose on melatonin and reassured MD Complaint: anxiety -: hour(s) Symptoms: palpitations Place: home Previous History of Same: Yes Severity: mild Quality: constant, improving Provoking factors: emotional stress Improves With: nothing Worsens With: nothing Associated symptoms: shortness of breath - Related Data Home Medications: Home Medications Medication Instructions Recorded Confirmed Omeprazole 40 mg PO DAILY 08/24/17 03/02/24 FLUoxetine HCL [PROzac] 40 mg PO DAILY 05/21/21 03/02/24 busPIRone HCl [Buspar] 5 mg PO BID 10/30/21 03/02/24 Albuterol Nebulized [Ventolin 2.5 mg INHALATION RT-TID PRN 07/27/22 03/02/24 Nebulized] Fluticasone/Umeclidin/Vilanter 1 puff INHALATION RT-DAILY 11/14/22 03/02/24 [Abi Goldenta 100-62.5-25] Memantine [Namenda] 10 mg PO DAILY 04/22/23 03/02/24 traMADol HCl [Ultram] 50 mg PO BID PRN 04/22/23 03/02/24 Acetaminophen [Tylenol 8 Hour] 650 mg PO Q8H PRN 01/17/24 03/02/24 Albuterol Inhaler [Ventolin Hfa 1 - 2 puff INHALATION RT-Q4H PRN 01/17/24 03/02/24 Inhaler] Propranolol [Inderal] 10 mg PO TID 01/17/24 03/02/24 ALPRAZolam [Xanax] 0.5 mg PO TID PRN 03/02/24 03/02/24 Previous Rx's Medication Instructions Recorded Apixaban [Eliquis] 2.5 mg PO BID 30 Days #60 tab 10/16/23 Atorvastatin [Lipitor] 40 mg PO HS #30 tab 03/03/24 Albuterol Inhaler [Ventolin Hfa 1 puff INHALATION QID #8 gm 04/10/24 Inhaler] predniSONE [Deltasone] 40 mg PO DAILY 5 Days #10 tab 04/10/24 polyethylene glycoL 3350 [Miralax] 17 gm PO DAILY #14 packet 04/27/24 Allergies/Adverse Reactions: Allergies Allergy/AdvReac Type Severity Reaction Status Date / Time budesonide [From Symbicort] Allergy Unknown Verified 05/06/24 03:10 formoterol [From Symbicort] Allergy Unknown Verified 05/06/24 03:10 gabapentin Allergy Unknown Verified 05/06/24 03:10 ibuprofen Allergy Unknown Verified 05/06/24 03:10 Iodinated Contrast Media Allergy Unknown Verified 05/06/24 03:10 [Iodinated Contrast- Oral and IV Dye] iodine Allergy Rash/Hives Verified 05/06/24 03:10 Sulfa (Sulfonamide Allergy Rash/Hives Verified 05/06/24 03:10 Antibiotics) topiramate [From Topamax] Allergy Unknown Verified 05/06/24 03:10 lorazepam [From Ativan] AdvReac Hallucinati Verified 05/06/24 03:10 ons prednisone AdvReac dizziness Verified 05/06/24 03:10 zolpidem tartrate AdvReac Hallucinati Verified 05/06/24 03:10 [From Ambien] ons Review of Systems ROS Statement: Those systems with pertinent positive or pertinent negative responses have been documented in the HPI. ROS Other: All systems not noted in ROS Statement are negative. Past Medical History Past Medical History: Atrial Fibrillation, Asthma, COPD, CVA/TIA, Dementia, Eye Disorder, GERD/Reflux, Hyperlipidemia, Pneumonia Additional Past Medical History / Comment(s): Chronic atrial fibrillation per PMH but pt has no recollection of this, bronchiectasis, essential tremors, previous TIA, chronic lumbar back pain, past 6 months R shoulder/cervical pain, balance difficulty with falls, occasional low urinary output and uses lasix prn for this, bilateral varicose veins, dysphagia-able to take pills one at a time with water, small hiatal hernia, restless leg syndrome, seasonal ALLERGIES, History of Any Multi-Drug Resistant Organisms: MRSA Date of last positivie culture/infection: 03/22/23 MDRO Source:: Left Heel Past Surgical History: Hysterectomy Additional Past Surgical History / Comment(s): 11/27/15 EGD with bx, bilateral cataracts removed with lens implants, colonoscopy with 1 benign polypectomy. Past Anesthesia/Blood Transfusion Reactions: No Reported Reaction Past Psychological History: Anxiety, Depression Smoking Status: Current some day smoker Past Alcohol Use History: None Reported Past Drug Use History: None Reported - Past Family History Father Family Medical History: Cancer Additional Family Medical History / Comment(s): Pt thinks father might have from stomach cancer. She was 2 yrs old when he . Sister(s) Family Medical History: Cancer Additional Family Medical History / Comment(s): Half sister with brain cancer. Mother Family Medical History: Dementia Additional Family Medical History / Comment(s): Mother had gallstones and a partial thyroidectomy for noncancerous reasons. General Exam General appearance: alert, in no apparent distress Head exam: Present: atraumatic, normocephalic, normal inspection Eye exam: Present: normal appearance, PERRL, EOMI. Absent: scleral icterus, conjunctival injection, periorbital swelling ENT exam: Present: normal exam, mucous membranes moist Neck exam: Present: normal inspection. Absent: tenderness, meningismus, lymphadenopathy Respiratory exam: Present: normal lung sounds bilaterally. Absent: respiratory distress, wheezes, rales, rhonchi, stridor Cardiovascular Exam: Present: regular rate, normal rhythm, normal heart sounds. Absent: systolic murmur, diastolic murmur, rubs, gallop, clicks GI/Abdominal exam: Present: soft, normal bowel sounds. Absent: distended, tenderness, guarding, rebound, rigid Extremities exam: Present: normal inspection, full ROM, normal capillary refill. Absent: tenderness, pedal edema, joint swelling, calf tenderness Back exam: Present: normal inspection Neurological exam: Present: alert, oriented X3, CN II-XII intact Psychiatric exam: Present: normal affect, normal mood Skin exam: Present: warm, dry, intact, normal color. Absent: rash Course Vital Signs 05/06/24 05/06/24 03:03 04:51 Temperature 97.8 F Pulse Rate 60 58 L Respiratory 18 18 Rate Blood Pressure 118/68 135/83 O2 Sat by Pulse 98 97 Oximetry - Reevaluation(s) Reevaluation #1: 05/06/24 03:30 Medical records reviewed Reevaluation #2: 05/06/24 03:30 Patient symptoms improved Reevaluation #3: 05/06/24 03:31 Patient informed of results Reevaluation #4: Was pt. sent in by a medical professional or institution ([facility] CLAU[facility] Childress, [employer], urgent care, hospital, or snf...) When possible be specific @ -no Did you speak to anyone other than the patient for history (EMS, parent, family, police, friend...)? What history was obtained from this source @ -no Did you review nursing and triage notes (agree or disagree)? Why? @ -agree Are old charts reviewed (outside hosp., previous admission, EMS record, old EKG, old radiological studies, urgent care reports/EKG's, snf records)? Report findings @ -yes Differential Diagnosis (chest pain, altered mental status, abdominal pain women, abdominal pain men, vaginal bleeding, weakness, fever, dyspnea, syncope, headache, dizziness, GI bleed, back pain, seizure, CVA, palpatations, mental health, musculoskeletal)? @ -prior EKG interpreted by me (3pts min.). @ -no X-rays interpreted by me (1pt min.). @ -no CT interpreted by me (1pt min.). @ -no U/S interpreted by me (1pt. min.). @ -no What testing was considered but not performed or refused? (CT, X-rays, U/S, labs)? Why? @ -none What meds were considered but not given or refused? Why? @ -none Did you discuss the management of the patient with other professionals (professionals i.e. JEAN CLAUDE Childress, [employer], lab, RT, psych nurse, social service assistant, skiver hand, teacher, real estate loan officer, case aide)? Give summary @ -no Was smoking cessation discussed for >3mins.? @ -no Was critical care preformed (if so, how long)? @ -no Were there social determinants of health that impacted care today? How? (Homelessness, low income, unemployed, alcoholism, drug addiction, transportation, low edu. Level, literacy, decrease access to med. care, long-term, rehab)? @ -none Was there de-escalation of care discussed even if they declined (Discuss DNR or withdrawal of care, Hospice)? DNR status @ -no What co-morbidities impacted this encounter? (DM, HTN, Smoking, COPD, CAD, Cancer, CVA, ARF, Chemo, Hep., AIDS, mental health diagnosis, sleep apnea, morbid obesity)? @ -none Was patient admitted / discharged? Hospital course, mention meds given and route, prescriptions, significant lab abnormalities, going to OR and other pertinent info. @ -83 female with anxiety reaction patient has no acute symptoms here in the ER and can be discharged home Undiagnosed new problem with uncertain prognosis? @ -no Drug Therapy requiring intensive monitoring for toxicity (Heparin, Nitro, Insulin, Cardizem)? @ -no Were any procedures done? @ -no Diagnosis/symptom? @ -Acute anxiety Acute, or Chronic, or Acute on Chronic? @ -Acute Uncomplicated (without systemic symptoms) or Complicated (systemic symptoms)? @ -Complicated Side effects of treatment? @ -no Exacerbation, Progression, or Severe Exacerbation? @ -exacerbation Poses a threat to life or bodily function? How? (Chest pain, [place], [place], pneumonia, PE, COPD, DKA, ARF, appy, cholecystitis, CVA, Diverticulitis, Homicidal, Suicidal, threat to staff... and all critical care pts) @ -yes extremes of age Reevaluation #5: Differential Weakness: Hypoglycemia, shock, sepsis, hyponatremia, anemia, infection, VT, ETOH, adverse medicine reaction, overdose, stroke, this is not meant to be an all-inclusive list. Disposition Clinical Impression: Panic attack, Acute anxiety Disposition: HOME SELF-CARE Condition: Fair Instructions (If sedation given, give patient instructions): Generalized Anxiety Disorder (ED) Is patient prescribed a controlled substance at d/c from ED?: No Referrals: Pablo De La Garza DO [Primary Care Provider] - 1-2 days Time of Disposition: 03:30
[2024-05-06] MEDS: diazePAM 2 MG TAB PO STA (04:38)
[2024-05-06 04:53] VITALS: BP 135/83; PULSE 58
== END 2024-05-06 05:52 | disposition home or self-care (01) ==
LOC: EC 02:59
DX: F41.0 Panic disorder [episodic paroxysmal anxiety] (principal); F03.94 Unspecified dementia, unspecified severity, with anxiety; F17.200 Nicotine dependence, unspecified, uncomplicated; Z88.1 Allergy status to other antibiotic agents; Z88.2 Allergy status to sulfonamides; Z88.8 Allergy status to other drugs, medicaments and biological substances; Z91.041 Radiographic dye allergy status; Z86.73 Personal history of transient ischemic attack (TIA), and cerebral infarction without residual deficits
CPT/HCPCS: 99284

== ENCOUNTER 2024-05-16 01:21 | Emergency (ER) | payer MEDICARE ==
--- NOTE | 2024-05-16 01:50 | ED ---
General Adult HPI - General Chief complaint: Anxiety Stated complaint: Anxiety Time Seen by Provider: 05/16/24 01:28 Source: EMS Mode of arrival: EMS - History of Present Illness Initial comments: 83-year-old female with history of dementia brought in by EMS. Per EMS report the patient's son had stepped out of the home and the patient took 8 of her albuterol breathing treatments. He she was experiencing anxiety so her son called for EMS. Patient states that she does not know why she is here. She is pleasantly confused. She is having some back pain which seems chronic in n ature. No evidence of any injuries. No chest pain or difficulty breathing. - Related Data Home Medications Medication Instructions Recorded Confirmed Omeprazole 40 mg PO DAILY 08/24/17 03/02/24 FLUoxetine HCL [PROzac] 40 mg PO DAILY 05/21/21 03/02/24 busPIRone HCl [Buspar] 5 mg PO BID 10/30/21 03/02/24 Albuterol Nebulized [Ventolin 2.5 mg INHALATION RT-TID PRN 07/27/22 03/02/24 Nebulized] Fluticasone/Umeclidin/Vilanter 1 puff INHALATION RT-DAILY 11/14/22 03/02/24 [Trelegy Ellipta 100-62.5-25] Memantine [Namenda] 10 mg PO DAILY 04/22/23 03/02/24 traMADol HCl [Ultram] 50 mg PO BID PRN 04/22/23 03/02/24 Acetaminophen [Tylenol 8 Hour] 650 mg PO Q8H PRN 01/17/24 03/02/24 Albuterol Inhaler [Ventolin Hfa 1 - 2 puff INHALATION RT-Q4H PRN 01/17/24 03/02/24 Inhaler] Propranolol [Inderal] 10 mg PO TID 01/17/24 03/02/24 ALPRAZolam [Xanax] 0.5 mg PO TID PRN 03/02/24 03/02/24 Previous Rx's Medication Instructions Recorded Apixaban [Eliquis] 2.5 mg PO BID 30 Days #60 tab 10/16/23 Atorvastatin [Lipitor] 40 mg PO HS #30 tab 03/03/24 Albuterol Inhaler [Ventolin Hfa 1 puff INHALATION QID #8 gm 04/10/24 Inhaler] predniSONE [Deltasone] 40 mg PO DAILY 5 Days #10 tab 04/10/24 polyethylene glycoL 3350 [Miralax] 17 gm PO DAILY #14 packet 04/27/24 Allergies Allergy/AdvReac Type Severity Reaction Status Date / Time budesonide [From Symbicort] Allergy Unknown Verified 05/06/24 03:10 formoterol [From Symbicort] Allergy Unknown Verified 05/06/24 03:10 gabapentin Allergy Unknown Verified 05/06/24 03:10 ibuprofen Allergy Unknown Verified 05/06/24 03:10 Iodinated Contrast Media Allergy Unknown Verified 05/06/24 03:10 [Iodinated Contrast- Oral and IV Dye] iodine Allergy Rash/Hives Verified 05/06/24 03:10 Sulfa (Sulfonamide Allergy Rash/Hives Verified 05/06/24 03:10 Antibiotics) topiramate [From Topamax] Allergy Unknown Verified 05/06/24 03:10 lorazepam [From Ativan] AdvReac Hallucinati Verified 05/06/24 03:10 ons prednisone AdvReac dizziness Verified 05/06/24 03:10 zolpidem tartrate AdvReac Hallucinati Verified 05/06/24 03:10 [From Ambien] ons Review of Systems ROS Statement: Those systems with pertinent positive or pertinent negative responses have been documented in the HPI. ROS Other: All systems not noted in ROS Statement are negative. Past Medical History Past Medical History: Atrial Fibrillation, Asthma, COPD, CVA/TIA, Dementia, Eye Disorder, GERD/Reflux, Hyperlipidemia, Pneumonia Additional Past Medical History / Comment(s): Chronic atrial fibrillation per PMH but pt has no recollection of this, bronchiectasis, essential tremors, previous TIA, chronic lumbar back pain, past 6 months R shoulder/cervical pain, balance difficulty with falls, occasional low urinary output and uses lasix prn for this, bilateral varicose veins, dysphagia-able to take pills one at a time with water, small hiatal hernia, restless leg syndrome, seasonal ALLERGIES, History of Any Multi-Drug Resistant Organisms: MRSA Date of last positivie culture/infection: 03/22/23 MDRO Source:: Left Heel Past Surgical History: Hysterectomy Additional Past Surgical History / Comment(s): 11/27/15 EGD with bx, bilateral cataracts removed with lens implants, colonoscopy with 1 benign polypectomy. Past Anesthesia/Blood Transfusion Reactions: No Reported Reaction Past Psychological History: Anxiety, Depression Smoking Status: Current some day smoker Past Alcohol Use History: None Reported Past Drug Use History: None Reported - Past Family History Father Family Medical History: Cancer Additional Family Medical History / Comment(s): Pt thinks father might have from stomach cancer. She was 2 yrs old when he . Sister(s) Family Medical History: Cancer Additional Family Medical History / Comment(s): Half sister with brain cancer. Mother Family Medical History: Dementia Additional Family Medical History / Comment(s): Mother had gallstones and a partial thyroidectomy for noncancerous reasons. General Exam Limitations: altered mental status (Dementia, baseline mental status) General appearance: alert, in no apparent distress Head exam: Present: atraumatic, normocephalic, normal inspection Eye exam: Present: normal appearance, EOMI. Absent: periorbital swelling Neck exam: Present: normal inspection, full ROM. Absent: meningismus Respiratory exam: Present: normal lung sounds bilaterally. Absent: respiratory distress, wheezes, rales, rhonchi, stridor Cardiovascular Exam: Present: regular rate, normal rhythm, normal heart sounds. Absent: systolic murmur, diastolic murmur, rubs, gallop, clicks Extremities exam: Present: normal inspection, normal capillary refill. Absent: tenderness, pedal edema Neurological exam: Present: alert, altered (Dementia, baseline mental status) Psychiatric exam: Present: normal affect, normal mood Skin exam: Present: warm, dry, normal color Course Vital Signs 05/16/24 01:22 Temperature 97.2 F L Pulse Rate 59 L Respiratory 18 Rate Blood Pressure 150/77 O2 Sat by Pulse 97 Oximetry Medical Decision Making - Medical Decision Making Was pt. sent in by a medical professional or institution (, PA, [employer], urgent care, hospital, or detention...) When possible be specific @ -No Did you speak to anyone other than the patient for history (EMS, parent, family, police, friend...)? What history was obtained from this source @ -EMS Did you review nursing and triage notes (agree or disagree)? Why? @ -I reviewed and agree with nursing and triage notes Were old charts reviewed (outside hosp., previous admission, EMS record, old EKG, old radiological studies, urgent care reports/EKG's, detention records)? Report findings @ -No old charts were reviewed Differential Diagnosis (chest pain, altered mental status, abdominal pain women, abdominal pain men, vaginal bleeding, weakness, fever, dyspnea, syncope, headache, dizziness, GI bleed, back pain, seizure, CVA, palpatations, mental health, musculoskeletal)? @ -Differential includes albuterol induced tachycardia/anxiety, dementia, not an all-inclusive list EKG interpreted by me (3pts min.). @ -As above X-rays interpreted by me (1pt min.). @ -None done CT interpreted by me (1pt min.). @ -None done U/S interpreted by me (1pt. min.). @ -None done What testing was considered but not performed or refused? (CT, X-rays, U/S, labs)? Why? @ -None What meds were considered but not given or refused? Why? @ -None Did you discuss the management of the patient with other professionals (professionals i.e. , PA, [employer], lab, RT, psych nurse, social services designee, cableman, teacher, correctional officer captain, transplant case manager)? Give summary @ -No Was smoking cessation discussed for >3mins.? @ -No Was critical care preformed (if so, how long)? @ -No Were there social determinants of health that impacted care today? How? (Homelessness, low income, unemployed, alcoholism, drug addiction, transportation, low edu. Level, literacy, decrease access to med. care, alf, rehab)? @ -No Was there de-escalation of care discussed even if they declined (Discuss DNR or withdrawal of care, Hospice)? DNR status @ -No What co-morbidities impacted this encounter? (DM, HTN, Smoking, COPD, CAD, Cancer, CVA, ARF, Chemo, Hep., AIDS, mental health diagnosis, sleep apnea, morbid obesity)? @ -None Was patient admitted / discharged? Hospital course, mention meds given and route, prescriptions, significant lab abnormalities, going to OR and other pertinent info. @ -83-year-old female brought in by EMS. It is reported that the patient took 8 of her albuterol breathing treatments while her son was not home and then had some anxiety. Patient is pleasantly confused. She states that she does not know why she is here. She is having some back pain which seems chronic in nature. No evidence of any injuries. She denies any chest pain or difficulty breathing. Stable heart rate and blood pressure. Discharged. Follow-up with PCP. Report back to ER with any new or worsening symptoms. Discussed return parameters and answered all questions. Patient conveyed verbal understanding and agreed to the plan. I discussed this case in detail with my attending Dr. Multani Undiagnosed new problem with uncertain prognosis? @ -No Drug Therapy requiring intensive monitoring for toxicity (Heparin, Nitro, Insulin, Cardizem)? @ -No Were any procedures done? @ -No Diagnosis/symptom? @ -Dementia Acute, or Chronic, or Acute on Chronic? @ -Chronic Uncomplicated (without systemic symptoms) or Complicated (systemic symptoms)? @ -Uncomplicated Side effects of treatment? @ -No Exacerbation, Progression, or Severe Exacerbation? @ -No Poses a threat to life or bodily function? How? (Chest pain, [place], [place], pneumonia, PE, COPD, DKA, ARF, appy, cholecystitis, CVA, Diverticulitis, Homicidal, Suicidal, threat to staff... and all critical care pts) @ -No immediate threat Disposition Clinical Impression: Dementia Disposition: HOME SELF-CARE Condition: Good Instructions (If sedation given, give patient instructions): Generalized Anxiety Disorder (ED) Additional Instructions: Follow-up with PCP. Report back to ER with any new or worsening symptoms. Is patient prescribed a controlled substance at d/c from ED?: No Referrals: Pablo De La Garza DO [Primary Care Provider] - 1-2 days Time of Disposition: 01:49
[2024-05-16 01:53] VITALS: TEMP 97.8
[2024-05-16] MEDS: ACETAMINOPHEN TAB 325 MG TAB PO STA (01:54)
[2024-05-16 03:08] VITALS: BP 121/93; PULSE 65; RESP 17
== END 2024-05-16 03:42 | disposition home or self-care (01) ==
LOC: EC 01:21
DX: F03.94 Unspecified dementia, unspecified severity, with anxiety (principal); F17.200 Nicotine dependence, unspecified, uncomplicated; Z86.73 Personal history of transient ischemic attack (TIA), and cerebral infarction without residual deficits; Z88.8 Allergy status to other drugs, medicaments and biological substances; Z88.2 Allergy status to sulfonamides; Z91.041 Radiographic dye allergy status
CPT/HCPCS: 99284

== ENCOUNTER 2024-05-18 17:26 | Emergency (ER) | payer MEDICARE ==
[2024-05-18 17:32] VITALS: TEMP 98.3
[2024-05-18] MEDS: SODIUM CHLORIDE 0.9% 1,000 ML IV STA (17:45)
--- NOTE | 2024-05-18 17:45 | ED ---
Altered Mental Status HPI - General Chief Complaint: Neuro Symptoms/Deficit Stated Complaint: shaky slurring words Time Seen by Provider: 05/18/24 17:34 Source: patient, RN notes reviewed, old records reviewed Mode of arrival: ambulatory Limitations: no limitations - History of Present Illness Initial Comments: This is an 83 female to ER for altered mental status confusion with concern for anxiety increasing anxiety despite taking antianxiety medication at home. Patient is poor to give story son believes she is just anxious MD Complaint: altered mental status, confusion -: days(s) Severity: moderate Consistency of Symptoms: getting worse Associated Symptoms: denies other symptoms - Related Data Home Medications Medication Instructions Recorded Confirmed Omeprazole 40 mg PO DAILY 08/24/17 03/02/24 FLUoxetine HCL [PROzac] 40 mg PO DAILY 05/21/21 03/02/24 busPIRone HCl [Buspar] 5 mg PO BID 10/30/21 03/02/24 Albuterol Nebulized [Ventolin 2.5 mg INHALATION RT-TID PRN 07/27/22 03/02/24 Nebulized] Fluticasone/Umeclidin/Vilanter 1 puff INHALATION RT-DAILY 11/14/22 03/02/24 [Trelegy Ellipta 100-62.5-25] Memantine [Namenda] 10 mg PO DAILY 04/22/23 03/02/24 traMADol HCl [Ultram] 50 mg PO BID PRN 04/22/23 03/02/24 Acetaminophen [Tylenol 8 Hour] 650 mg PO Q8H PRN 01/17/24 03/02/24 Albuterol Inhaler [Ventolin Hfa 1 - 2 puff INHALATION RT-Q4H PRN 01/17/24 Inhaler] Propranolol [Inderal] 10 mg PO TID 01/17/24 03/02/24 ALPRAZolam [Xanax] 0.5 mg PO TID PRN 03/02/24 03/02/24 Previous Rx's Medication Instructions Recorded Apixaban [Eliquis] 2.5 mg PO BID 30 Days #60 tab 10/16/23 Atorvastatin [Lipitor] 40 mg PO HS #30 tab 03/03/24 Albuterol Inhaler [Ventolin Hfa 1 puff INHALATION QID #8 gm 04/10/24 Inhaler] predniSONE [Deltasone] 40 mg PO DAILY 5 Days #10 tab 04/10/24 polyethylene glycoL 3350 [Miralax] 17 gm PO DAILY #14 packet 04/27/24 Allergies Allergy/AdvReac Type Severity Reaction Status Date / Time budesonide [From Symbicort] Allergy Unknown Verified 05/18/24 17:27 formoterol [From Symbicort] Allergy Unknown Verified 05/18/24 17:27 gabapentin Allergy Unknown Verified 05/18/24 17:27 ibuprofen Allergy Unknown Verified 05/18/24 17:27 Iodinated Contrast Media Allergy Unknown Verified 05/18/24 17:27 [Iodinated Contrast- Oral and IV Dye] iodine Allergy Rash/Hives Verified 05/18/24 17:27 Sulfa (Sulfonamide Allergy Rash/Hives Verified 05/18/24 17:27 Antibiotics) topiramate [From Topamax] Allergy Unknown Verified 05/18/24 17:27 lorazepam [From Ativan] AdvReac Hallucinati Verified 05/18/24 17:27 ons prednisone AdvReac dizziness Verified 05/18/24 17:27 zolpidem tartrate AdvReac Hallucinati Verified 05/18/24 17:27 [From Ambien] ons Review of Systems ROS Statement: Those systems with pertinent positive or pertinent negative responses have been documented in the HPI. ROS Other: All systems not noted in ROS Statement are negative. Past Medical History Past Medical History: Atrial Fibrillation, Asthma, COPD, CVA/TIA, Dementia, Eye Disorder, GERD/Reflux, Hyperlipidemia, Pneumonia Additional Past Medical History / Comment(s): Chronic atrial fibrillation per PMH but pt has no recollection of this, bronchiectasis, essential tremors, previous TIA, chronic lumbar back pain, past 6 months R shoulder/cervical pain, balance difficulty with falls, occasional low urinary output and uses lasix prn for this, bilateral varicose veins, dysphagia-able to take pills one at a time with water, small hiatal hernia, restless leg syndrome, seasonal ALLERGIES, History of Any Multi-Drug Resistant Organisms: MRSA Date of last positivie culture/infection: 03/22/23 MDRO Source:: Left Heel Past Surgical History: Hysterectomy Additional Past Surgical History / Comment(s): 11/27/15 EGD with bx, bilateral cataracts removed with lens implants, colonoscopy with 1 benign polypectomy. Past Anesthesia/Blood Transfusion Reactions: No Reported Reaction Past Psychological History: Anxiety, Depression Smoking Status: Current some day smoker Past Alcohol Use History: None Reported Past Drug Use History: None Reported - Past Family History Father Family Medical History: Cancer Additional Family Medical History / Comment(s): Pt thinks father might have from stomach cancer. She was 2 yrs old when he . Sister(s) Family Medical History: Cancer Additional Family Medical History / Comment(s): Half sister with brain cancer. Mother Family Medical History: Dementia Additional Family Medical History / Comment(s): Mother had gallstones and a partial thyroidectomy for noncancerous reasons. General Exam Limitations: no limitations General appearance: alert, in no apparent distress Head exam: Present: atraumatic, normocephalic, normal inspection Eye exam: Present: normal appearance, PERRL, EOMI. Absent: scleral icterus, conjunctival injection, periorbital swelling ENT exam: Present: normal exam, mucous membranes moist Neck exam: Present: normal inspection. Absent: tenderness, meningismus, lymphadenopathy Respiratory exam: Present: normal lung sounds bilaterally. Absent: respiratory distress, wheezes, rales, rhonchi, stridor Cardiovascular Exam: Present: regular rate, normal rhythm, normal heart sounds. Absent: systolic murmur, diastolic murmur, rubs, gallop, clicks GI/Abdominal exam: Present: soft, normal bowel sounds. Absent: distended, tenderness, guarding, rebound, rigid Extremities exam: Present: normal inspection, full ROM, normal capillary refill. Absent: tenderness, pedal edema, joint swelling, calf tenderness Back exam: Present: normal inspection Neurological exam: Present: alert, oriented X3, CN II-XII intact Psychiatric exam: Present: normal affect, normal mood Skin exam: Present: warm, dry, intact, normal color. Absent: rash Course Vital Signs 05/18/24 05/18/24 05/18/24 17:28 18:03 18:58 Temperature 98.3 F Pulse Rate 70 64 69 Respiratory 18 17 17 Rate Blood Pressure 100/65 109/66 139/88 O2 Sat by Pulse 92 L 97 97 Oximetry 05/18/24 19:31 Temperature Pulse Rate 67 Respiratory 17 Rate Blood Pressure 132/72 O2 Sat by Pulse 96 Oximetry - Reevaluation(s) Reevaluation #1: 05/18/24 17:59 Medical records reviewed Reevaluation #2: 05/18/24 19:45 Patient symptoms improved Reevaluation #3: 05/18/24 19:45 Patient informed of results questions answered Reevaluation #4: Was pt. sent in by a medical professional or institution ([facility], [facility] [facility], urgent care, hospital, or usp...) When possible be specific @ -no Did you speak to anyone other than the patient for history (EMS, parent, family, police, friend...)? What history was obtained from this source @ -no Did you review nursing and triage notes (agree or disagree)? Why? @ -agree Are old charts reviewed (outside hosp., previous admission, EMS record, old EKG, old radiological studies, urgent care reports/EKG's, usp records)? Rep ort findings @ -yes Differential Diagnosis (chest pain, altered mental status, abdominal pain women, abdominal pain men, vaginal bleeding, weakness, fever, dyspnea, syncope, headache, dizziness, GI bleed, back pain, seizure, CVA, palpatations, mental health, musculoskeletal)? @ -prior EKG interpreted by me (3pts min.). @ -yes X-rays interpreted by me (1pt min.). @ -yes negative for acute disease CT interpreted by me (1pt min.). @ -no U/S interpreted by me (1pt. min.). @ -no What testing was considered but not performed or refused? (CT, X-rays, U/S, labs)? Why? @ -none What meds were considered but not given or refused? Why? @ -none Did you discuss the management of the patient with other professionals (professionals i.e. [facility], [employer], lab, RT, psych nurse, rn social work, jar capper, t eacher, procurement officer, leather case finisher)? Give summary @ -no Was smoking cessation discussed for >3mins.? @ -no Was critical care preformed (if so, how long)? @ -no Were there social determinants of health that impacted care today? How? (Homelessness, low income, unemployed, alcoholism, drug addiction, transportation, low edu. Level, literacy, decrease access to med. care, usp, rehab)? @ -none Was there de-escalation of care discussed even if they declined (Discuss DNR or withdrawal of care, Hospice)? DNR status @ -no What co-morbidities impacted this encounter? (DM, HTN, Smoking, COPD, CAD, Cancer, CVA, ARF, Chemo, Hep., AIDS, mental health diagnosis, sleep apnea, morbid obesity)? @ -none Was patient admitted / discharged? Hospital course, mention meds given and route, prescriptions, significant lab abnormalities, going to OR and other pertinent info. @ - Undiagnosed new problem with uncertain prognosis? @ -no Drug Therapy requiring intensive monitoring for toxicity (Heparin, Nitro, Insulin, Cardizem)? @ -no Were any procedures done? @ -no Diagnosis/symptom? @ - Acute, or Chronic, or Acute on Chronic? @ -Acute Uncomplicated (without systemic symptoms) or Complicated (systemic symptoms)? @ -Complicated Side effects of treatment? @ -no Exacerbation, Progression, or Severe Exacerbation? @ -exacerbation Poses a threat to life or bodily function? How? (Chest pain, [place], [place], pneumonia, PE, COPD, DKA, ARF, appy, cholecystitis, CVA, Diverticulitis, Homicidal, Suicidal, threat to staff... and all critical care pts) @ -yes Reevaluation #5: Differential Altered Mental Status: Hypoglycemia, DKA, hypercapnia, ETOH, overdose, CO poisoning, trauma, myxedema coma, HTN encephalopathy, infection, encephalitis, psychosis, intercranial hemorrhage, hepatic encephalopathy, meningitis, CVA, this is not meant to be an all-inclusive list Medical Decision Making - Medical Decision Making 83 female to ER with no organic cause of symptoms. Patient does appear to be having anxiety or panic attack related moments. Patient will be discharged home - Lab Data Result diagrams: 05/18/24 17:47 05/18/24 17:47 Lab Results 05/18/24 05/18/24 05/18/24 Range/Units 17:47 17:47 17:47 WBC 7.3 (3.8-10.6) k/uL RBC 4.33 (3.80-5.40) m/uL Hgb 13.0 (11.4-16.0) gm/dL Hct 39.1 (34.0-46.0) % MCV 90.2 (80.0-100.0) fL MCH 30.1 (25.0-35.0) pg MCHC 33.4 (31.0-37.0) g/dL RDW 13.4 (11.5-15.5) % Plt Count 255 (150-450) k/uL MPV 6.9 Neutrophils % 61 % Lymphocytes % 27 % Monocytes % 7 % Eosinophils % 2 % Basophils % 0 % Neutrophils # 4.4 (1.3-7.7) k/uL Lymphocytes # 2.0 (1.0-4.8) k/uL Monocytes # 0.5 (0-1.0) k/uL Eosinophils # 0.2 (0-0.7) k/uL Basophils # 0.0 (0-0.2) k/uL PT 10.3 (10.0-12.5) sec INR 0.9 (<1.2) APTT 21.7 L (22.0-30.0) sec Sodium 137 (137-145) mmol/L Potassium 4.6 (3.5-5.1) mmol/L Chloride 103 (98-107) mmol/L Carbon Dioxide 25 (22-30) mmol/L Anion Gap 9 mmol/L BUN 21 H (7-17) mg/dL Creatinine 0.87 (0.52-1.04) mg/dL Est GFR (CKD-EPI)AfAm 71 (>60 ml/min/1.73 sqM) Est GFR (CKD-EPI)NonAf 62 (>60 ml/min/1.73 sqM) Glucose 106 H (74-99) mg/dL Plasma Lactic Acid Osmel (0.7-2.0) mmol/L Calcium 9.4 (8.4-10.2) mg/dL Phosphorus 4.4 (2.5-4.5) mg/dL Magnesium 2.1 (1.6-2.3) mg/dL Total Bilirubin 0.4 (0.2-1.3) mg/dL AST 20 (14-36) U/L ALT 11 (4-34) U/L Alkaline Phosphatase 84 (38-126) U/L Troponin I (0.000-0.034) ng/mL Total Protein 6.4 (6.3-8.2) g/dL Albumin 4.0 (3.5-5.0) g/dL 05/18/24 05/18/24 Range/Units 17:47 17:47 WBC (3.8-10.6) k/uL RBC (3.80-5.40) m/uL Hgb (11.4-16.0) gm/dL Hct (34.0-46.0) % MCV (80.0-100.0) fL MCH (25.0-35.0) pg MCHC (31.0-37.0) g/dL RDW (11.5-15.5) % Plt Count (150-450) k/uL MPV Neutrophils % % Lymphocytes % % Monocytes % % Eosinophils % % Basophils % % Neutrophils # (1.3-7.7) k/uL Lymphocytes # (1.0-4.8) k/uL Monocytes # (0-1.0) k/uL Eosinophils # (0-0.7) k/uL Basophils # (0-0.2) k/uL PT (10.0-12.5) sec INR (<1.2) APTT (22.0-30.0) sec Sodium (137-145) mmol/L Potassium (3.5-5.1) mmol/L Chloride (98-107) mmol/L Carbon Dioxide (22-30) mmol/L Anion Gap mmol/L BUN (7-17) mg/dL Creatinine (0.52-1.04) mg/dL Est GFR (CKD-EPI)AfAm (>60 ml/min/1.73 sqM) Est GFR (CKD-EPI)NonAf (>60 ml/min/1.73 sqM) Glucose (74-99) mg/dL Plasma Lactic Acid Osmel 1.5 (0.7-2.0) mmol/L Calcium (8.4-10.2) mg/dL Phosphorus (2.5-4.5) mg/dL Magnesium (1.6-2.3) mg/dL Total Bilirubin (0.2-1.3) mg/dL AST (14-36) U/L ALT (4-34) U/L Alkaline Phosphatase (38-126) U/L Troponin I <0.012 (0.000-0.034) ng/mL Total Protein (6.3-8.2) g/dL Albumin (3.5-5.0) g/dL - EKG Data -: EKG Interpreted by Me (EKG is A-fib 65 QRS 84 QTc 443) - Radiology Data Radiology results: report reviewed (CT brain chest x-ray is negative for acute disease), image reviewed Disposition Clinical Impression: Altered mental status, Panic attack Disposition: HOME SELF-CARE Condition: Fair Instructions (If sedation given, give patient instructions): Anxiety (ED) Referrals: Pablo De La Garza DO [Primary Care Provider] - 1-2 days
[2024-05-18 18:11] VITALS: RESP 17
[2024-05-18 18:14] LABS: Basophils % (A) 0 %; Eosinophils # (A) 0.2 k/uL (0-0.7); Eosinophils % (A) 2 %; HCT 39.1 % (34.0-46.0); Lymphocytes % (A) 27 %; MCH 30.1 pg (25.0-35.0); MCHC 33.4 g/dL (31.0-37.0); MCV 90.2 fL (80.0-100.0); Mean Platelet Volume 6.9; Monocytes # (A) 0.5 k/uL (0-1.0); Monocytes % (A) 7 %; Neutrophils # (A) 4.4 k/uL (1.3-7.7); Neutrophils % (A) 61 %; Platelet Count 255 k/uL (150-450); RBC 4.33 m/uL (3.80-5.40); RDW 13.4 % (11.5-15.5); WBC 7.3 k/uL (3.8-10.6)
[2024-05-18 18:25] LABS: ALT 11 U/L (4-34); AST 20 U/L (14-36); African American GFR (CKD) 71 (>60 ml/min/1.73 sqM); Alkaline Phosphatase 84 U/L (38-126); Anion Gap 9 mmol/L; Blood Urea Nitrogen 21 mg/dL (7-17); Calcium 9.4 mg/dL (8.4-10.2); Carbon Dioxide 25 mmol/L (22-30); Chloride 103 mmol/L (98-107); Glucose 106 mg/dL (74-99); Magnesium 2.1 mg/dL (1.6-2.3); Non-African American GFR(CKD) 62 (>60 ml/min/1.73 sqM); Phosphorus 4.4 mg/dL (2.5-4.5); Potassium 4.6 mmol/L (3.5-5.1); Sodium 137 mmol/L (137-145); Total Bilirubin 0.4 mg/dL (0.2-1.3); Total Protein 6.4 g/dL (6.3-8.2)
[2024-05-18 18:32] LABS: INR 0.9 (<1.2); Prothrombin Time 10.3 sec (10.0-12.5)
[2024-05-18 18:42] LABS: Partial Thromboplastin Time 21.7 sec (22.0-30.0)
--- NOTE | 2024-05-18 19:25 | XR ---
EXAMINATION TYPE: XR chest 2V DATE OF EXAM: 05/18/2024 7:08 PM COMPARISON: Previous chest radiograph 04/10/2024. CLINICAL INDICATION: Female, 83 years old with history of Weakness; H TECHNIQUE: XR chest 2V Frontal and lateral views of the chest. FINDINGS: Lungs/Pleura: There is no evidence of pleural effusion, focal consolidation, or pneumothorax. Lungs hyperinflated bilaterally with coarsening of interstitial markings. Mild right lung base scarring/ate lectasis, similar to prior study. Pulmonary vascularity: Unremarkable. Heart/mediastinum: Cardiomediastinal silhouette is unremarkable. Musculoskeletal: No acute osseous pathology. Other findings: None IMPRESSION: 1. No acute cardiopulmonary disease/process. 2. Findings suggestive of COPD. [facility], , 05/18/2024 7:23 PM
[2024-05-18] MEDS: ONDANSETRON 4 MG/2 ML VIAL IVP STA (19:26)
[2024-05-18] MEDS: HYDROmorphone 0.5 MG/0.5 ML SYRINGE IVP STA (19:28)
--- NOTE | 2024-05-18 19:31 | CT ---
EXAMINATION TYPE: CT brain wo con DATE OF EXAM: 05/18/2024 7:24 PM COMPARISON: Multiple prior CT studies, most recent dated 03/31/2024. CLINICAL INDICATION: Female, 83 years old with history of weakness, weakness, ams TECHNIQUE: Brain: Axial CT images of the brain were obtained with coronal and sagittal reformats created and rev iewed. Contrast used: None. Oral contrast used: None. CT DLP: 1142.8 mGycm, Automated exposure control for dose reduction was used. FINDINGS: Brain: Extra-axial spaces: No abnormal extra-axial fluid collections. Ventricular system: Dilated, with possible greater central component, not significantly changed from prior study 03/31/2024. Generalized cerebral volume loss. Cerebral parenchyma: No acute intraparenchymal hemorrhage or mass effect. Patchy periventricular and subcortical white matter hypoattenuation suggestive of mitral vascular ischemic disease. Cerebellum: Unremarkable. Mass effect: No evidence of midline shift. Soft tissues: Normal. Calvarium/osseous structures: No depressed skull fracture. Paranasal sinuses and mastoid air cells: Mild scattered paranasal sinus disease. Visualized orbits: Bilateral aphakia IMPRESSION: No acute intracranial process. [facility], , 05/18/2024 7:28 PM
[2024-05-18] MEDS: LORazepam 2 MG/ML INJ IV STA (20:09)
[2024-05-18 20:19] VITALS: BP 133/62; PULSE 68
== END 2024-05-18 20:19 | disposition home or self-care (01) ==
LOC: EC 17:26
DX: R41.82 Altered mental status, unspecified (principal); F41.0 Panic disorder [episodic paroxysmal anxiety]; F17.200 Nicotine dependence, unspecified, uncomplicated; Z88.2 Allergy status to sulfonamides; Z88.6 Allergy status to analgesic agent; Z91.041 Radiographic dye allergy status; Z88.8 Allergy status to other drugs, medicaments and biological substances
CPT/HCPCS: 93005; 80053; 83605; 83735; 84100; 84484; 85025; 85610; 85730; 71046; 70450; 99285; 96374; 96375; 96361; J2060; J2405; J1171; 36415

== ENCOUNTER 2024-05-19 20:38 | Inpatient (IN) | payer MEDICARE ==
--- NOTE | 2024-05-19 20:43 | ED ---
Recheck HPI - General Stated Complaint: Back Pain, Confusion Time Seen by Provider: 05/19/24 20:41 Source: RN notes reviewed, old records reviewed Mode of arrival: EMS Limitations: no limitations - History of Present Illness Initial Comments: This is a 83-year-old female to the ER for evaluation of altered mental status debility weakness patient has been called EMS frequently lately, with multiple complaints of anxiety shortness of breath chest pain abdominal pain back pain e tc. Patient said prior evaluations here in the ER although EMS is reporting that patient is unsafe living conditions found on arrival to the hospital today MD Complaint: other (Altered mental status) -: unknown Symptoms Since Prior Visit: no new symptoms Associated Symptoms: none Treatments Prior to Arrival: other (0) - Related Data Previous Rx's Medication Instructions Recorded ALPRAZolam [Xanax] 0.5 mg PO TID PRN #9 tab 05/24/24 Albuterol Inhaler [Ventolin Hfa 1 puff INHALATION RT-QID PRN #1 05/24/24 Inhaler] each Albuterol Nebulized [Ventolin 2.5 mg INHALATION RT-TID PRN #120 05/24/24 Nebulized] ml FLUoxetine HCL [PROzac] 40 mg PO DAILY #30 cap 05/24/24 Fluticasone/Umeclidin/Vilanter 1 puff INHALATION RT-DAILY #1 each 05/24/24 [Trelegy Ellipta 100-62.5-25] Memantine [Namenda] 10 mg PO DAILY #30 tab 05/24/24 Pantoprazole [Protonix] 40 mg PO DAILY@0730 #30 tab 05/24/24 Propranolol [Inderal] 10 mg PO TID #90 tab 05/24/24 busPIRone HCl [Buspar] 5 mg PO BID #60 tab 05/24/24 traMADol HCl [Ultram] 50 mg PO BID PRN #6 tab 05/24/24 Allergies Allergy/AdvReac Type Severity Reaction Status Date / Time budesonide [From Symbicort] Allergy Unknown Verified 05/20/24 10:38 formoterol [From Symbicort] Allergy Unknown Verified 05/20/24 10:38 gabapentin Allergy Unknown Verified 05/20/24 10:38 ibuprofen Allergy Unknown Verified 05/20/24 10:38 Iodinated Contrast Media Allergy Unknown Verified 05/20/24 10:38 [Iodinated Contrast- Oral and IV Dye] iodine Allergy Rash/Hives Verified 05/20/24 10:38 Sulfa (Sulfonamide Allergy Rash/Hives Verified 05/20/24 10:38 Antibiotics) topiramate [From Topamax] Allergy Unknown Verified 05/20/24 10:38 lorazepam [From Ativan] AdvReac Hallucinati Verified 05/20/24 10:38 ons prednisone AdvReac dizziness Verified 05/20/24 10:38 zolpidem tartrate AdvReac Hallucinati Verified 05/20/24 10:38 [From Ambien] ons Review of Systems ROS Statement: Those systems with pertinent positive or pertinent negative responses have been documented in the HPI. ROS Other: All systems not noted in ROS Statement are negative. Past Medical History Past Medical History: Atrial Fibrillation, Asthma, COPD, CVA/TIA, Dementia, Eye Disorder, GERD/Reflux, Hyperlipidemia, Pneumonia Additional Past Medical History / Comment(s): Chronic atrial fibrillation per PMH but pt has no recollection of this, bronchiectasis, essential tremors, previous TIA, chronic lumbar back pain, past 6 months R shoulder/cervical pain, balance difficulty with falls, occasional low urinary output and uses lasix prn for this, bilateral varicose veins, dysphagia-able to take pills one at a time with water, small hiatal hernia, restless leg syndrome, seasonal ALLERGIES, History of Any Multi-Drug Resistant Organisms: MRSA Date of last positivie culture/infection: 03/22/23 MDRO Source:: Left Heel Past Surgical History: Hysterectomy Additional Past Surgical History / Comment(s): 11/27/15 EGD with bx, bilateral cataracts removed with lens implants, colonoscopy with 1 benign polypectomy. Past Anesthesia/Blood Transfusion Reactions: No Reported Reaction Past Psychological History: Anxiety, Depression Smoking Status: Current some day smoker Past Alcohol Use History: None Reported Past Drug Use History: None Reported - Past Family History Father Family Medical History: Cancer Additional Family Medical History / Comment(s): Pt thinks father might have from stomach cancer. She was 2 yrs old when he . Sister(s) Family Medical History: Cancer Additional Family Medical History / Comment(s): Half sister with brain cancer. Mother Family Medical History: Dementia Additional Family Medical History / Comment(s): Mother had gallstones and a partial thyroidectomy for noncancerous reasons. Course Vital Signs 05/19/24 05/19/24 05/20/24 20:41 23:00 02:00 Temperature 98.4 F Pulse Rate 67 72 80 Respiratory 18 16 16 Rate Blood Pressure 128/60 140/63 122/86 O2 Sat by Pulse 99 99 97 Oximetry 05/20/24 06:00 Temperature Pulse Rate 67 Respiratory 16 Rate Blood Pressure 119/53 O2 Sat by Pulse 96 Oximetry - Reevaluation(s) Reevaluation #1: 05/19/24 21:17 Medical records reviewed Reevaluation #2: 05/19/24 21:17 Patient symptoms unchanged Reevaluation #3: 05/19/24 21:17 Patient informed of results questions answered Reevaluation #4: Was pt. sent in by a medical professional or institution ([facility], [facility], urgent care, hospital, or custodial...) When possible be specific @ -no Did you speak to anyone other than the patient for history (EMS, parent, family, police, friend...)? What history was obtained from this source @ -no Did you review nursing and triage notes (agree or disagree)? Why? @ -agree Are old charts reviewed (outside hosp., previous admission, EMS record, old EKG, old radiological studies, urgent care reports/EKG's, custodial records)? Report findings @ -yes Differential Diagnosis (chest pain, altered mental status, abdominal pain women, abdominal pain men, vaginal bleeding, weakness, fever, dyspnea, syncope, headache, dizziness, GI bleed, back pain, seizure, CVA, palpatations, mental health, musculoskeletal)? @ -prior EKG interpreted by me (3pts min.). @ -yes X-rays interpreted by me (1pt min.). @ -no CT interpreted by me (1pt min.). @ -yes negative for acute disease U/S interpreted by me (1pt. min.). @ -no What testing was considered but not performed or refused? (CT, X-rays, U/S, labs)? Why? @ -none What meds were considered but not given or refused? Why? @ -none Did you discuss the management of the patient with other professionals (professionals i.e. [facility], [facility], lab, RT, psych nurse, vp digital marketing social media and crm, mechanical sound technician, teacher, fire management officer, case management associate)? Give summary @ -no Was smoking cessation discussed for >3mins.? @ -no Was critical care preformed (if so, how long)? @ -no Were there social determinants of health that impacted care today? How? (Ruddy elessness, low income, unemployed, alcoholism, drug addiction, transportation, low edu. Level, literacy, decrease access to med. care, long term, rehab)? @ -none Was there de-escalation of care discussed even if they declined (Discuss DNR or withdrawal of care, Hospice)? DNR status @ -no What co-morbidities impacted this encounter? (DM, HTN, Smoking, COPD, CAD, Cancer, CVA, ARF, Chemo, Hep., AIDS, mental health diagnosis, sleep apnea, morbid obesity)? @ -none Was patient admitted / discharged? Hospital course, mention meds given and route, prescriptions, significant lab abnormalities, going to OR and other pertinent info. @ - 83 female will be admitted for altered mental status debility unsafe at home unsafe living conditions patient is placed under 3200 status by EMS due to unsafe living conditions Admitted Undiagnosed new problem with uncertain prognosis? @ -no Drug Therapy requiring intensive monitoring for toxicity (Heparin, Nitro, Insulin, Cardizem)? @ -no Were any procedures done? @ -no Diagnosis/symptom? @ -Failure to thrive altered mental status, dementia and weakness Acute, or Chronic, or Acute on Chronic? @ -Acute Uncomplicated (without systemic symptoms) or Complicated (systemic symptoms)? @ -Complicated Side effects of treatment? @ -no Exacerbation, Progression, or Severe Exacerbation? @ -exacerbation Poses a threat to life or bodily function? How? (Chest pain, [place], [place], pneumonia, PE, COPD, DKA, ARF, appy, cholecystitis, CVA, Diverticulitis, Homicidal, Suic idal, threat to staff... and all critical care pts) @ -yes extremes of age Reevaluation #5: Differential Altered Mental Status: Hypoglycemia, DKA, hypercapnia, ETOH, overdose, CO poisoning, trauma, myxedema coma, HTN encephalopathy, infection, encephalitis, psychosis, intercranial hemorrhage, hepatic encephalopathy, meningitis, CVA, this is not meant to be an all-inclusive list Medical Decision Making - Medical Decision Making 83 female will be admitted for altered mental status debility unsafe at home unsafe living conditions patient is placed under 3200 status by EMS due to unsafe living conditions - Lab Data Result diagrams: 05/22/24 06:48 05/23/24 08:02 Lab Results 05/19/24 05/19/24 05/19/24 Range/Units 21:01 21:01 21:01 WBC 6.8 (3.8-10.6) k/uL RBC 3.76 L (3.80-5.40) m/uL Hgb 11.2 L (11.4-16.0) gm/dL Hct 33.7 L (34.0-46.0) % MCV 89.7 (80.0-100.0) fL MCH 29.8 (25.0-35.0) pg MCHC 33.2 (31.0-37.0) g/dL RDW 13.9 (11.5-15.5) % Plt Count 228 (150-450) k/uL MPV 7.5 Neutrophils % 62 % Lymphocytes % 24 % Monocytes % 9 % Eosinophils % 2 % Basophils % 0 % Neutrophils # 4.2 (1.3-7.7) k/uL Lymphocytes # 1.6 (1.0-4.8) k/uL Monocytes # 0.6 (0-1.0) k/uL Eosinophils # 0.2 (0-0.7) k/uL Basophils # 0.0 (0-0.2) k/uL PT 10.5 (10.0-12.5) sec INR 0.9 (<1.2) APTT 22.6 (22.0-30.0) sec Sodium 137 (137-145) mmol/L Potassium 4.1 (3.5-5.1) mmol/L Chloride 103 (98-107) mmol/L Carbon Dioxide 29 (22-30) mmol/L Anion Gap 5 mmol/L BUN 21 H (7-17) mg/dL Creatinine 0.90 (0.52-1.04) mg/dL Est GFR (CKD-EPI)AfAm 69 (>60 ml/min/1.73 sqM) Est GFR (CKD-EPI)NonAf 60 (>60 ml/min/1.73 sqM) Glucose 91 (74-99) mg/dL Plasma Lactic Acid Osmel (0.7-2.0) mmol/L Calcium 9.0 (8.4-10.2) mg/dL Phosphorus 4.7 H (2.5-4.5) mg/dL Magnesium 2.0 (1.6-2.3) mg/dL Total Bilirubin 0.5 (0.2-1.3) mg/dL AST 16 (14-36) U/L ALT 10 (4-34) U/L Alkaline Phosphatase 83 (38-126) U/L Troponin I (0.000-0.034) ng/mL Total Protein 5.7 L (6.3-8.2) g/dL Albumin 3.5 (3.5-5.0) g/dL Urine Color Urine Appearance (Clear) Urine pH (5.0-8.0) Ur Specific [place] (1.001-1.035) Urine Protein (Negative) Urine Glucose (UA) (Negative) Urine Ketones (Negative) Urine Blood (Negative) Urine Nitrite (Negative) Urine Bilirubin (Negative) Urine Urobilinogen (<2.0) mg/dL Ur Leukocyte Esterase (Negative) Urine RBC (0-5) /hpf Urine WBC (0-5) /hpf Ur Squamous Epith Cells (0-4) /hpf Hyaline Casts (0-2) /lpf Urine Mucus (None) /hpf Urine Yeast (Budding) (None) /hpf 05/19/24 05/19/24 05/19/24 Range/Units 21:01 21:01 22:46 WBC (3.8-10.6) k/uL RBC (3.80-5.40) m/uL Hgb (11.4-16.0) gm/dL Hct (34.0-46.0) % MCV (80.0-100.0) fL MCH (25.0-35.0) pg MCHC (31.0-37.0) g/dL RDW (11.5-15.5) % Plt Count (150-450) k/uL MPV Neutrophils % % Lymphocytes % % Monocytes % % Eosinophils % % Basophils % % Neutrophils # (1.3-7.7) k/uL Lymphocytes # (1.0-4.8) k/uL Monocytes # (0-1.0) k/uL Eosinophils # (0-0.7) k/uL Basophils # (0-0.2) k/uL PT (10.0-12.5) sec INR (<1.2) APTT (22.0-30.0) sec Sodium (137-145) mmol/L Potassium (3.5-5.1) mmol/L Chloride (98-107) mmol/L Carbon Dioxide (22-30) mmol/L Anion Gap mmol/L BUN (7-17) mg/dL Creatinine (0.52-1.04) mg/dL Est GFR (CKD-EPI)AfAm (>60 ml/min/1.73 sqM) Est GFR (CKD-EPI)NonAf (>60 ml/min/1.73 sqM) Glucose (74-99) mg/dL Plasma Lactic Acid Osmel 0.6 L (0.7-2.0) mmol/L Calcium (8.4-10.2) mg/dL Phosphorus (2.5-4.5) mg/dL Magnesium (1.6-2.3) mg/dL Total Bilirubin (0.2-1.3) mg/dL AST (14-36) U/L ALT (4-34) U/L Alkaline Phosphatase (38-126) U/L Troponin I <0.012 (0.000-0.034) ng/mL Total Protein (6.3-8.2) g/dL Albumin (3.5-5.0) g/dL Urine Color Yellow Urine Appearance Clear (Clear) Urine pH 5.5 (5.0-8.0) Ur Specific [place] 1.020 (1.001-1.035) Urine Protein Trace H (Negative) Urine Glucose (UA) Negative (Negative) Urine Ketones Trace H (Negative) Urine Blood Small H (Negative) Urine Nitrite Negative (Negative) Urine Bilirubin Negative (Negative) Urine Urobilinogen <2.0 (<2.0) mg/dL Ur Leukocyte Esterase Negative (Negative) Urine RBC 6 H (0-5) /hpf Urine WBC 4 (0-5) /hpf Ur Squamous Epith Cells 1 (0-4) /hpf Hyaline Casts 1 (0-2) /lpf Urine Mucus Rare H (None) /hpf Urine Yeast (Budding) Few H (None) /hpf 05/20/24 05/20/24 05/21/24 Range/Units 06:27 06:27 09:02 WBC 6.2 4.8 (3.8-10.6) k/uL RBC 3.54 L 3.76 L (3.80-5.40) m/uL Hgb 10.8 L 11.3 L (11.4-16.0) gm/dL Hct 32.5 L 34.5 (34.0-46.0) % MCV 91.7 91.6 (80.0-100.0) fL MCH 30.5 30.0 (25.0-35.0) pg MCHC 33.3 32.8 (31.0-37.0) g/dL RDW 13.4 13.3 (11.5-15.5) % Plt Count 187 186 (150-450) k/uL MPV 6.7 6.7 Neutrophils % 48 66 % Lymphocytes % 37 21 % Monocytes % 8 7 % Eosinophils % 3 3 % Basophils % 0 0 % Neutrophils # 3.0 3.2 (1.3-7.7) k/uL Lymphocytes # 2.3 1.0 (1.0-4.8) k/uL Monocytes # 0.5 0.3 (0-1.0) k/uL Eosinophils # 0.2 0.1 (0-0.7) k/uL Basophils # 0.0 0.0 (0-0.2) k/uL PT (10.0-12.5) sec INR (<1.2) APTT (22.0-30.0) sec Sodium 137 (137-145) mmol/L Potassium 3.8 (3.5-5.1) mmol/L Chloride 105 (98-107) mmol/L Carbon Dioxide 28 (22-30) mmol/L Anion Gap 4 mmol/L BUN 19 H (7-17) mg/dL Creatinine 0.79 (0.52-1.04) mg/dL Est GFR (CKD-EPI)AfAm 81 (>60 ml/min/1.73 sqM) Est GFR (CKD-EPI)NonAf 70 (>60 ml/min/1.73 sqM) Glucose 96 (74-99) mg/dL Plasma Lactic Acid Osmel (0.7-2.0) mmol/L Calcium 8.7 (8.4-10.2) mg/dL Phosphorus 4.2 (2.5-4.5) mg/dL Magnesium 2.0 (1.6-2.3) mg/dL Total Bilirubin 0.8 (0.2-1.3) mg/dL AST 15 (14-36) U/L ALT 9 (4-34) U/L Alkaline Phosphatase 71 (38-126) U/L Troponin I (0.000-0.034) ng/mL Total Protein 5.1 L (6.3-8.2) g/dL Albumin 3.0 L (3.5-5.0) g/dL Urine Color Urine Appearance (Clear) Urine pH (5.0-8.0) Ur Specific [place] (1.001-1.035) Urine Protein (Negative) Urine Glucose (UA) (Negative) Urine Ketones (Negative) Urine Blood (Negative) Urine Nitrite (Negative) Urine Bilirubin (Negative) Urine Urobilinogen (<2.0) mg/dL Ur Leukocyte Esterase (Negative) Urine RBC (0-5) /hpf Urine WBC (0-5) /hpf Ur Squamous Epith Cells (0-4) /hpf Hyaline Casts (0-2) /lpf Urine Mucus (None) /hpf Urine Yeast (Budding) (None) /hpf 05/21/24 Range/Units 09:02 WBC (3.8-10.6) k/uL RBC (3.80-5.40) m/uL Hgb (11.4-16.0) gm/dL Hct (34.0-46.0) % MCV (80.0-100.0) fL MCH (25.0-35.0) pg MCHC (31.0-37.0) g/dL RDW (11.5-15.5) % Plt Count (150-450) k/uL MPV Neutrophils % % Lymphocytes % % Monocytes % % Eosinophils % % Basophils % % Neutrophils # (1.3-7.7) k/uL Lymphocytes # (1.0-4.8) k/uL Monocytes # (0-1.0) k/uL Eosinophils # (0-0.7) k/uL Basophils # (0-0.2) k/uL PT (10.0-12.5) sec INR (<1.2) APTT (22.0-30.0) sec Sodium 136 L (137-145) mmol/L Potassium 3.7 (3.5-5.1) mmol/L Chloride 103 (98-107) mmol/L Carbon Dioxide 28 (22-30) mmol/L Anion Gap 5 mmol/L BUN 9 (7-17) mg/dL Creatinine 0.70 (0.52-1.04) mg/dL Est GFR (CKD-EPI)AfAm >90 (>60 ml/min/1.73 sqM) Est GFR (CKD-EPI)NonAf 80 (>60 ml/min/1.73 sqM) Glucose 110 H (74-99) mg/dL Plasma Lactic Acid Osmel (0.7-2.0) mmol/L Calcium 8.6 (8.4-10.2) mg/dL Phosphorus (2.5-4.5) mg/dL Magnesium 1.8 (1.6-2.3) mg/dL Total Bilirubin (0.2-1.3) mg/dL AST (14-36) U/L ALT (4-34) U/L Alkaline Phosphatase (38-126) U/L Troponin I (0.000-0.034) ng/mL Total Protein (6.3-8.2) g/dL Albumin (3.5-5.0) g/dL Urine Color Urine Appearance (Clear) Urine pH (5.0-8.0) Ur Specific [place] (1.001-1.035) Urine Protein (Negative) Urine Glucose (UA) (Negative) Urine Ketones (Negative) Urine Blood (Negative) Urine Nitrite (Negative) Urine Bilirubin (Negative) Urine Urobilinogen (<2.0) mg/dL Ur Leukocyte Esterase (Negative) Urine RBC (0-5) /hpf Urine WBC (0-5) /hpf Ur Squamous Epith Cells (0-4) /hpf Hyaline Casts (0-2) /lpf Urine Mucus (None) /hpf Urine Yeast (Budding) (None) /hpf - EKG Data -: EKG Interpreted by Me (EKG is sinus 69 VT 144 QRS 82 QTc 439) - Radiology Data Radiology results: report reviewed (CT abdomen pelvis negative for acute disease), image reviewed Disposition Clinical Impression: Altered mental status Disposition: ADMITTED IP TO THIS [facility] Condition: Fair Is patient prescribed a controlled substance at d/c from ED?: No Time of Disposition: 22:00
[2024-05-19] MEDS ORDERED: NALOXONE 0.4 MG/ML 1 ML VIAL IV PRN (21:15)
[2024-05-19] MEDS ORDERED: MORPHINE SULFATE 4 MG/ML SYRINGE IV PRN (21:15)
[2024-05-19] MEDS ORDERED: ONDANSETRON 4 MG/2 ML VIAL IVP PRN (21:15)
[2024-05-19 21:39] LABS: INR 0.9 (<1.2); Partial Thromboplastin Time 22.6 sec (22.0-30.0); Prothrombin Time 10.5 sec (10.0-12.5)
[2024-05-19 21:44] LABS: African American GFR (CKD) 69 (>60 ml/min/1.73 sqM); Anion Gap 5 mmol/L; Blood Urea Nitrogen 21 mg/dL (7-17); Carbon Dioxide 29 mmol/L (22-30); Chloride 103 mmol/L (98-107); Glucose 91 mg/dL (74-99); Potassium 4.1 mmol/L (3.5-5.1); Sodium 137 mmol/L (137-145)
[2024-05-19 21:45] LABS: ALT 10 U/L (4-34); AST 16 U/L (14-36); Albumin 3.5 g/dL (3.5-5.0); Alkaline Phosphatase 83 U/L (38-126); Non-African American GFR(CKD) 60 (>60 ml/min/1.73 sqM); Phosphorus 4.7 mg/dL (2.5-4.5); Total Bilirubin 0.5 mg/dL (0.2-1.3); Total Protein 5.7 g/dL (6.3-8.2)
[2024-05-19] MEDS: SODIUM CHLORIDE 0.9% 1,000 ML IV STA ×2 (21:46→23:34)
[2024-05-19] MEDS: MORPHINE SULFATE 4 MG/ML SYRINGE IV STA (21:46)
[2024-05-19] MEDS: ONDANSETRON 4 MG/2 ML VIAL IVP STA (21:47)
[2024-05-19 21:54] LABS: Basophils % (A) 0 %; Eosinophils # (A) 0.2 k/uL (0-0.7); Eosinophils % (A) 2 %; HCT 33.7 % (34.0-46.0); HGB 11.2 gm/dL (11.4-16.0); Lymphocytes # (A) 1.6 k/uL (1.0-4.8); Lymphocytes % (A) 24 %; MCH 29.8 pg (25.0-35.0); MCHC 33.2 g/dL (31.0-37.0); MCV 89.7 fL (80.0-100.0); Mean Platelet Volume 7.5; Monocytes # (A) 0.6 k/uL (0-1.0); Monocytes % (A) 9 %; Neutrophils # (A) 4.2 k/uL (1.3-7.7); Neutrophils % (A) 62 %; Platelet Count 228 k/uL (150-450); RBC 3.76 m/uL (3.80-5.40); RDW 13.9 % (11.5-15.5); WBC 6.8 k/uL (3.8-10.6)
--- NOTE | 2024-05-19 21:57 | CT ---
EXAMINATION TYPE: CT abdomen pelvis wo con DATE OF EXAM: 05/19/2024 9:38 PM COMPARISON: CT abdomen/pelvis 05/07/2024. CLINICAL INDICATION: Female, 83 years old with history of pain; Generalized abdominal pain. Unable to raise arms above head TECHNIQUE: Axial CT abdomen pelvis wo con;Sagittal and coronal reformats were created on a separate workstation. Oral contrast used: without Oral Contrast (none if empty) CT DLP: 384.2 mGycm, Automated exposure control for dose reduction was used. FINDINGS: Study limited due to streak artifact related to patient's overlying extremity/positioning. LOWER CHEST: Unremarkable ABDOMEN LIVER: Unremarkable GALLBLADDER AND BILE DUCTS: Unremarkable. PANCREAS: Unremarkable. SPLEEN: Unremarkable. ADRENAL GLANDS: Unremarkable. KIDNEYS AND URETERS: No evidence of hydronephrosis or renal calculus. The ureters are unremarkable. PELVIS BLADDER: No evidence for wall thickening or mass given limitations of exam. REPRODUCTIVE: The uterus is surgically absent. ABDOMEN & PELVIS STOMACH AND BOWEL: Moderate hiatal hernia. No evidence of bowel obstruction. Colonic diverticulosis. Moderate volume diffuse colonic stool. PERITONEUM/RETROPERITONEUM: No evidence of pneumoperitoneum or free fluid. VASCULATURE: No evidence of aortic aneurysm. MUSCULOSKELETAL: No acute osseous abnormalities. There is chronic compression fractures, not signific ant change from prior study 04/27/2024. For example, moderate compression deformity of the L3 inferior endplate and L1 inferior endplate. Mild compression deformity of the L2 superior endplate. Mild T10 a nd T11 vertebral body compression deformities. Old partially visualized left-sided rib fracture defor mities. LYMPH NODES: No gross evidence for lymphadenopathy. SOFT TISSUE/ABDOMINAL WALL: Unremarkable IMPRESSION: 1. No acute abnormality in the abdomen/pelvis. 2. Colonic diverticulosis and moderate volume diffuse colonic stool. 3. Moderate size hiatal hernia. 4. Additional nonacute findings as above. [facility], , 05/19/2024 9:55 PM
[2024-05-19 23:19] LABS: Appearance,Urine Clear (Clear); Bilirubin,Urine Negative (Negative); Blood,Urine Small (Negative); Budding Yeast,Urine Few /hpf; Color,Urine Yellow; Glucose,Urine (UA) Negative (Negative); Hyaline Casts,Urine 1 /lpf (0-2); Ketones,Urine Trace (Negative); Leukocyte Esterase,Urine Negative (Negative); Mucus,Urine Rare /hpf; Nitrite,Urine Negative (Negative); PH, Urine 5.5 (5.0-8.0); Protein,Urine Trace (Negative); RBC,Urine 6 /hpf (0-5); Squamous Epithelial Cell,Urine 1 /hpf (0-4); Urobilinogen,Urine <2.0 mg/dL (<2.0); WBC,Urine 4 /hpf (0-5)
[2024-05-19] MEDS: SODIUM CHLORIDE 0.9% 1,000 ML IV SCH (23:43)
--- NOTE | 2024-05-20 01:07 | P.HPIM ---
History of Present Illness H&P Date: 05/19/24 Chief Complaint: Acute metabolic encephalopathy Patient is a 83-year-old female with past medical history significant for atrial fibrillation anticoagulated on Eliquis, asthma, COPD on 5 L nasal cannula at home, CVA/TIA, GERD, hyperlipidemia, and likely dementia (son reports patient is on dementia meds without an official diagnosis) who presented to the emergency room for altered mental status. Patient's son is in the room and provides most of the history. Patient's son states that recently she has been having a number of falls. Son also states she has been off of her Eliquis due to insurance issues. He states that she has home oxygen but refuses to take it, does not always take her medications, and has walkers but does not always use them. He reports that she has a home health aide from 02-24 and him and his sister tried to look after her the remaining time. They live in the same house as her. Son reports that she had fallen during the night and he was awoken by paramedics. He reports the patient was found banging on the door with a hammer. EMS reports unsafe living conditions for the patient. Son denies any recent changes to her medications and states that they ensure that she takes them daily. He also states she has poor oral intake. Patient is relatively poor historian, but denies chest pain shortness of breath, nausea, vomiting, diarrhea, chills, fevers, dysuria, or bowel complaints. She states that while getting around she sometimes uses her walker, but sometimes she just attempts to ambulate on her own. The son requested for possible placement due to difficulty for caring for her increasing needs and worsening mental capacity with falls. Vitals on admission temperature 97.4, heart rate 61 bpm, respiratory rate 18, blood pressure 107/70, O2 saturation 97% on 3 L nasal cannula EKG independently interpreted as sinus rhythm with rate of 69 bpm and QTc of [address] of abdomen and pelvis showed colonic diverticulosis and moderate volume diffuse colonic stool Labs on admission show WBC 6.8, hemoglobin 11.2, MCV 89.7, platelets 228. PT 10.5, INR 0.9, PTT 22.6. Sodium 137, potassium 4.1, chloride 103, bicarb 29, BUN 21, creatinine 0.9, glucose 91. Calcium 9, phosphorus 4.7, Magnesium 2. LFTs unremarkable. Troponin negative. Review of systems: Pertinent positives and negatives as discussed in HPI, a complete review of systems was performed and all other systems are negative. PCP: Dr. De La Garza Physical examination: Vital signs reviewed General: nontoxic, appears at stated age, on 3 L nasal cannula Derm: warm, dry, intact Head: atraumatic, normocephalic, symmetric Eyes: anicteric sclera Mouth: no lip lesion, mucus membranes moist Cardiovascular: S1 S2 reg, no murmur Lungs: Expiratory wheezing noted bilaterally Abdominal: soft, , nondistended Extremities: No cyanosis, clubbing, or pedal edema. Neuro: Alert, Oriented to person and place but not time, Gross neurological examination did not reveal any focal deficits. Cranial nerves II to XII grossly intact. Bilateral upper and lower extremity muscle strength intact and sensation intact. Psych: Frail appearing, anxious Assessment/Plan: Patient is a 83-year-old female past medical history significant for A-fib anticoagulated on Eliquis, asthma, COPD, CVA TIA, GERD, hyperlipidemia presented for altered mental status. Case was discussed with the ER and patient will be admitted to internal medicine service for further evaluation Active: Altered mental status, possibly polypharmacy vs dementia Patient has had several visits to the ER, and several falls Consult case management Consult Neurology Review home med list once reconciled COPD maintained on home oxygen (5 L/min NC), not in acute exacerbation Resume home meds once confirmed Continue supplemental NC oxygen to maintain O2 sats greater than 94% Normocytic anemia Hemoglobin 11.2 Continue to monitor Prerenal azotemia, possibly secondary to dehydration Continue IV fluids Continue to monitor Hyperphosphatemia Continue to monitor Weakness States she feels unstable while walking at home Physical therapy consulted Fall precautions Chronic: Atrial Fibrillation anticoagulated on Eliquis, currently sinus Continue Eliquis 2.5 mg twice daily GERD Continue omeprazole 40 mg daily Hyperlipidemia Continue atorvastatin 40 mg F: Continue 0.9% normal saline at 75 mL/h E: Replete as needed N: Regular diet A: Fall precautions DVT prophylaxis: Eliquis 2.5 mg bid The patient is admitted with an anticipated more than 2 midnight stay for evaluation of acute metabolic encephalopathy CODE STATUS: Full code Discussed with: Patient Anticipated discharge place: Pending clinical course Past Medical History Past Medical History: Atrial Fibrillation, Asthma, COPD, CVA/TIA, Dementia, Eye Disorder, GERD/Reflux, Hyperlipidemia, Pneumonia Additional Past Medical History / Comment(s): Chronic atrial fibrillation per PMH but pt has no recollection of this, bronchiectasis, essential tremors, previous TIA, chronic lumbar back pain, past 6 months R shoulder/cervical pain, balance difficulty with falls, occasional low urinary output and uses lasix prn for this, bilateral varicose veins, dysphagia-able to take pills one at a time with water, small hiatal hernia, restless leg syndrome, seasonal ALLERGIES, History of Any Multi-Drug Resistant Organisms: MRSA Date of last positivie culture/infection: 03/22/23 MDRO Source:: Left Heel Past Surgical History: Hysterectomy Additional Past Surgical History / Comment(s): 11/27/15 EGD with bx, bilateral cataracts removed with lens implants, colonoscopy with 1 benign polypectomy. Past Anesthesia/Blood Transfusion Reactions: No Reported Reaction Past Psychological History: Anxiety, Depression Smoking Status: Current some day smoker Past Alcohol Use History: None Reported Past Drug Use History: None Reported - Past Family History Father Family Medical History: Cancer Additional Family Medical History / Comment(s): Pt thinks father might have from stomach cancer. She was 2 yrs old when he . Sister(s) Family Medical History: Cancer Additional Family Medical History / Comment(s): Half sister with brain cancer. Mother Family Medical History: Dementia Additional Family Medical History / Comment(s): Mother had gallstones and a partial thyroidectomy for noncancerous reasons. Medications and Allergies Home Medications Medication Instructions Recorded Confirmed Type Omeprazole 40 mg PO DAILY 08/24/17 03/02/24 History FLUoxetine HCL [PROzac] 40 mg PO DAILY 05/21/21 03/02/24 History busPIRone HCl [Buspar] 5 mg PO BID 10/30/21 03/02/24 History Albuterol Nebulized [Ventolin 2.5 mg INHALATION RT-TID PRN 07/27/22 03/02/24 History Nebulized] Fluticasone/Umeclidin/Vilanter 1 puff INHALATION RT-DAILY 11/14/22 03/02/24 History [Trelegy Ellipta 100-62.5-25] Memantine [Namenda] 10 mg PO DAILY 04/22/23 03/02/24 History traMADol HCl [Ultram] 50 mg PO BID PRN 04/22/23 03/02/24 History Apixaban [Eliquis] 2.5 mg PO BID 30 Days #60 tab 10/16/23 03/02/24 Rx Acetaminophen [Tylenol 8 Hour] 650 mg PO Q8H PRN 01/17/24 03/02/24 History Albuterol Inhaler [Ventolin Hfa 1 - 2 puff INHALATION RT-Q4H PRN 01/17/24 03/02/24 History Inhaler] Propranolol [Inderal] 10 mg PO TID 01/17/24 03/02/24 History ALPRAZolam [Xanax] 0.5 mg PO TID PRN 03/02/24 03/02/24 History Atorvastatin [Lipitor] 40 mg PO HS #30 tab 03/03/24 Rx Albuterol Inhaler [Ventolin Hfa 1 puff INHALATION QID #8 gm 04/10/24 Rx Inhaler] predniSONE [Deltasone] 40 mg PO DAILY 5 Days #10 tab 04/10/24 Rx polyethylene glycoL 3350 [Miralax] 17 gm PO DAILY #14 packet 04/27/24 Rx Allergies Allergy/AdvReac Type Severity Reaction Status Date / Time budesonide [From Symbicort] Allergy Unknown Verified 05/19/24 20:46 formoterol [From Symbicort] Allergy Unknown Verified 05/19/24 20:46 gabapentin Allergy Unknown Verified 05/19/24 20:46 ibuprofen Allergy Unknown Verified 05/19/24 20:46 Iodinated Contrast Media Allergy Unknown Verified 05/19/24 20:46 [Iodinated Contrast- Oral and IV Dye] iodine Allergy Rash/Hives Verified 05/19/24 20:46 Sulfa (Sulfonamide Allergy Rash/Hives Verified 05/19/24 20:46 Antibiotics) topiramate [From Topamax] Allergy Unknown Verified 05/19/24 20:46 lorazepam [From Ativan] AdvReac Hallucinati Verified 05/19/24 20:46 ons prednisone AdvReac dizziness Verified 05/19/24 20:46 zolpidem tartrate AdvReac Hallucinati Verified 05/19/24 20:46 [From Ambien] ons Physical Exam Vitals: Vital Signs Temp Pulse Resp BP Pulse Ox 05/19/24 20:41 98.4 F 67 18 128/60 99 Intake and Output 05/19/24 05/19/24 05/19/24 06:59 14:59 22:59 Other: Weight 58.967 kg Results CBC & Chem 7: 05/19/24 21:01 05/19/24 21:01 Labs: Abnormal Lab Results - Last 24 Hours (Table) 05/19/24 05/19/24 05/19/24 Range/Units 21:01 21:01 21:01 RBC 3.76 L (3.80-5.40) m/uL Hgb 11.2 L (11.4-16.0) gm/dL Hct 33.7 L (34.0-46.0) % BUN 21 H (7-17) mg/dL Plasma Lactic Acid Osmel 0.6 L (0.7-2.0) mmol/L Phosphorus 4.7 H (2.5-4.5) mg/dL Total Protein 5.7 L (6.3-8.2) g/dL
[2024-05-20 06:50] LABS: Basophils % (A) 0 %; Eosinophils # (A) 0.2 k/uL (0-0.7); Eosinophils % (A) 3 %; HCT 32.5 % (34.0-46.0); HGB 10.8 gm/dL (11.4-16.0); Lymphocytes # (A) 2.3 k/uL (1.0-4.8); Lymphocytes % (A) 37 %; MCH 30.5 pg (25.0-35.0); MCHC 33.3 g/dL (31.0-37.0); MCV 91.7 fL (80.0-100.0); Mean Platelet Volume 6.7; Monocytes # (A) 0.5 k/uL (0-1.0); Monocytes % (A) 8 %; Neutrophils % (A) 48 %; Platelet Count 187 k/uL (150-450); RBC 3.54 m/uL (3.80-5.40); RDW 13.4 % (11.5-15.5); WBC 6.2 k/uL (3.8-10.6)
[2024-05-20 07:00] LABS: ALT 9 U/L (4-34); AST 15 U/L (14-36); African American GFR (CKD) 81 (>60 ml/min/1.73 sqM); Alkaline Phosphatase 71 U/L (38-126); Anion Gap 4 mmol/L; Blood Urea Nitrogen 19 mg/dL (7-17); Calcium 8.7 mg/dL (8.4-10.2); Carbon Dioxide 28 mmol/L (22-30); Chloride 105 mmol/L (98-107); Glucose 96 mg/dL (74-99); Non-African American GFR(CKD) 70 (>60 ml/min/1.73 sqM); Phosphorus 4.2 mg/dL (2.5-4.5); Potassium 3.8 mmol/L (3.5-5.1); Sodium 137 mmol/L (137-145); Total Bilirubin 0.8 mg/dL (0.2-1.3); Total Protein 5.1 g/dL (6.3-8.2)
[2024-05-20] MEDS: PANTOPRAZOLE 40 MG TABLET PO SCH (09:35)
[2024-05-20] MEDS: APIXABAN 2.5 MG TABLET PO SCH (09:35)
--- NOTE | 2024-05-20 11:31 | P.CNNES ---
History of Present Illness Consult date: 05/20/24 Requesting physician: Taryn Lew Reason for Consult: acute metabolic encephalopathy vs dementia History of Present Illness: This is an 83 year-old woman with history of progressive dementia, recurrent falls, generalized weakness who presents to the emergency department for reported altered mental status, debility weakness. I personally called the patient's daughter, Rita who provides history for me. According to the daughter the patient has progressive dementia, recurrent falls generalized weakness and seems that she had recurrent falls recently and per the daughter patient has attempted to call the hospital for different things and they are not aware that she called the the hospital yesterday. They are unsure why she called the hospital. The daughter states that the patient was seen by different neurol ogist within [place], [place] region she was given a diagnosis of dementia and she is on Namenda. Patient refused to have physical therapy. The daughter and the son live with the patient. According to daughter the patient has a progressive dementia and at times she does not recall her children's name. At times she refuses to take her medication. She stated that about 2 days ago she came to the hospital because of a headache then it seems that she was discharged home then yesterday she called the hospital for unknown reason and the ambulance came and took the patient to the hospital. The ED note seems the patient presents to the hospital because of multiple complaints of anxiety, shortness of breath, chest pain, abdominal pain back pain. Per the daughter patient has underlying history of essential tremor does not have Parkinson's disease that she was notified by her neurologist. She had an EEG as an outpatient Some of the workup during this hospital visit consisted of I reviewed the lab workup. Patient had a CT of the head on 05/18/2024 ER visit. Reported as no acute intracranial process. Review of Systems Limited but as per HPI. Past Medical History Past Medical History: Atrial Fibrillation, Asthma, COPD, CVA/TIA, Dementia, Eye Disorder, GERD/Reflux, Hyperlipidemia, Pneumonia Additional Past Medical History / Comment(s): Chronic atrial fibrillation per PMH but pt has no recollection of this, bronchiectasis, essential tremors, previous TIA, chronic lumbar back pain, past 6 months R shoulder/cervical pain, balance difficulty with falls, occasional low urinary output and uses lasix prn for this, bilateral varicose veins, dysphagia-able to take pills one at a time with water, small hiatal hernia, restless leg syndrome, seasonal ALLERGIES, History of Any Multi-Drug Resistant Organisms: MRSA Date of last positivie culture/infection: 03/22/23 MDRO Source:: Left Heel Past Surgical History: Hysterectomy Additional Past Surgical History / Comment(s): 11/27/15 EGD with bx, bilateral cataracts removed with lens implants, colonoscopy with 1 benign polypectomy. Past Anesthesia/Blood Transfusion Reactions: No Reported Reaction Past Psychological History: Anxiety, Depression Smoking Status: Current some day smoker Past Alcohol Use History: None Reported Past Drug Use History: None Reported - Past Family History Father Family Medical History: Cancer Additional Family Medical History / Comment(s): Pt thinks father might have from stomach cancer. She was 2 yrs old when he . Sister(s) Family Medical History: Cancer Additional Family Medical History / Comment(s): Half sister with brain cancer. Mother Family Medical History: Dementia Additional Family Medical History / Comment(s): Mother had gallstones and a partial thyroidectomy for noncancerous reasons. Medications and Allergies Home Medications Medication Instructions Recorded Confirmed Type Omeprazole 40 mg PO DAILY 08/24/17 05/20/24 History FLUoxetine HCL [PROzac] 40 mg PO DAILY 05/21/21 05/20/24 History busPIRone HCl [Buspar] 5 mg PO BID 10/30/21 05/20/24 History Albuterol Nebulized [Ventolin 2.5 mg INHALATION RT-TID 07/27/22 05/20/24 History Nebulized] Fluticasone/Umeclidin/Vilanter 1 puff INHALATION RT-DAILY 11/14/22 05/20/24 History [Trelegy Ellipta 100-62.5-25] Memantine [Namenda] 10 mg PO DAILY 04/22/23 05/20/24 History traMADol HCl [Ultram] 50 mg PO BID PRN 04/22/23 05/20/24 History Propranolol [Inderal] 10 mg PO TID 01/17/24 05/20/24 History ALPRAZolam [Xanax] 0.5 mg PO TID PRN 03/02/24 05/20/24 History Albuterol Inhaler [Ventolin Hfa 1 puff INHALATION RT-QID 05/20/24 05/20/24 History Inhaler] Allergies Allergy/AdvReac Type Severity Reaction Status Date / Time budesonide [From Symbicort] Allergy Unknown Verified 05/20/24 10:38 formoterol [From Symbicort] Allergy Unknown Verified 05/20/24 10:38 gabapentin Allergy Unknown Verified 05/20/24 10:38 ibuprofen Allergy Unknown Verified 05/20/24 10:38 Iodinated Contrast Media Allergy Unknown Verified 05/20/24 10:38 [Iodinated Contrast- Oral and IV Dye] iodine Allergy Rash/Hives Verified 05/20/24 10:38 Sulfa (Sulfonamide Allergy Rash/Hives Verified 05/20/24 10:38 Antibiotics) topiramate [From Topamax] Allergy Unknown Verified 05/20/24 10:38 lorazepam [From Ativan] AdvReac Hallucinati Verified 05/20/24 10:38 ons prednisone AdvReac dizziness Verified 05/20/24 10:38 zolpidem tartrate AdvReac Hallucinati Verified 05/20/24 10:38 [From Ambien] ons Physical Examination - Vital Signs Vital Signs: Vital Signs Temp Pulse Pulse Resp BP BP Pulse Ox 05/20/24 07:43 98.1 F 69 21 158/73 98 05/20/24 06:00 67 16 119/53 96 05/20/24 02:00 80 16 122/86 97 05/19/24 23:00 72 16 140/63 99 05/19/24 20:41 98.4 F 67 18 128/60 99 Intake and Output 05/19/24 05/20/24 05/20/24 22:59 06:59 14:59 Other: # Voids 1 Weight 58.967 kg General: Sitting in a recliner chair and is not in acute distress. Neuro: Limited because of her underlying dementia. Patient is awake alert oriented to self. With option she correctly stated that she is in the hospital. She followed simple commands and at times she has to mimic the commands. Language is limited Visual palencia are full to confrontation. Pupils are round about 3 mm reactive to light. Extraocular movement is intact no nystagmus. No facial weakness. No dysarthria. Tongue is midline moves [id number] with any difficulty The motor: The strength is limited because of her overall cooperation and she stated that she has pain throughout. But she is able to lift up all extremity above gravity. In the right lower extremity seems that she had more pain and she contributes that to her chronic hip pains. Plantars are mute bilaterally. Otherwise rest are limited Results - Laboratory Findings CBC and BMP: 05/20/24 06:27 05/20/24 06:27 Abnormal Lab Findings: Abnormal Labs 05/19/24 05/19/24 05/19/24 21:01 21:01 21:01 RBC 3.76 L Hgb 11.2 L Hct 33.7 L BUN 21 H Plasma Lactic Acid Osmel 0.6 L Phosphorus 4.7 H Total Protein 5.7 L Albumin Urine Protein Urine Ketones Urine Blood Urine RBC Urine Mucus Urine Yeast (Budding) 05/19/24 05/20/24 05/20/24 22:46 06:27 06:27 RBC 3.54 L Hgb 10.8 L Hct 32.5 L BUN 19 H Plasma Lactic Acid Osmel Phosphorus Total Protein 5.1 L Albumin 3.0 L Urine Protein Trace H Urine Ketones Trace H Urine Blood Small H Urine RBC 6 H Urine Mucus Rare H Urine Yeast (Budding) Few H Assessment and Plan Assessment: This is an 83-year-old woman who has progressive dementia, recurrent falls, essential tremor who called the hospital according to the daughter for unknown reason. Per the daughter about 2 days ago she complained of a headache and she was brought to the hospital and had CT of the head which was was unremarkable. She was seen by different neurologist locally as an outpatient. Altered mental status is likely due to her progressive dementia Underlying history of dementia and patient is on the mend Recurrent falls. Refuses physical therapy per the daughter Essential tremor History of TIA Chronic lumbar back pain Unsteady gait at baseline History of atrial fibrillation on Eliquis Plan: I ordered CT of the head, cervical spine as well as CT lumbar spine. Physical therapy is consulted According to the daughter patient had EEG as an outpatient and no seizure. Recommend resuming her home dose of Namenda Consider placement for the patient because of her progressive dementia and recurrent falls will defer the final decision to the patient family. Upon discharge recommend the patient to follow-up with a neurologist as an outpatient within 3 weeks Will defer the rest of the medical management to primary team next Plan discussed with the patient daughter via phone Thank you for the consultation Time with Patient: Greater than 30
--- NOTE | 2024-05-20 13:48 | CT ---
EXAMINATION TYPE: CT cervical spine wo con DATE OF EXAM: 05/20/2024 11:56 AM COMPARISON: 03/31/2024 CLINICAL INDICATION: Female, 83 years old with pain, history of recurrent falls, Recurrent falls, TECHNIQUE: Contiguous axial scanning of the cervical spine without IV contrast. Coronal and sagittal reconstructions performed. CT DLP: 202 mGycm, Automated exposure control for dose reduction was used. FINDINGS: No craniocervical junction abnormality, predental space widening, or prevertebral soft tissue swellin g. Degenerative change of the C1 dens articulation. Scattered moderate degenerative disc disease especially C3-C4 and C6/C7 with narrowed disc spaces and endplate irregularity. Degenerative grade 1 anterolisthesis C3-C4 and C4-C5 and trace grade 1 retrolisthesis C5-C6. Remainin g alignment is maintained. There is reversal of the normal cervical lordosis. Ligamentum flavum thickening and broad-based posterior disc bulge at C6-C7 contributes to a focal mod erate narrowing of the spinal canal with AP canal dimension of 7 mm. Otherwise, no evident canal comp romise by CT. No acute fracture seen of the cervical spine. [id number] facet and uncovertebral joint arthropathy. No significant neuroforaminal stenosis is seen. IMPRESSION: 1. NO ACUTE FRACTURE OF THE CERVICAL SPINE. REVERSAL OF THE NORMAL CERVICAL LORDOSIS. 2. MODERATE DEGENERATIVE DISC DISEASE ESPECIALLY AT C3-C4 AND C6-C7. MILD TO MODERATE FACET AND UNCOV ERTEBRAL JOINT ARTHROPATHY. 3. DEGENERATIVE GRADE 1 SPONDYLOLISTHESIS C3-C6 LEVELS. 4. THERE MAY BE A FOCAL MODERATE SPINAL CANAL STENOSIS AT C6-C7 SECONDARY TO DISC BULGE AND LIGAMENTU M FLAVUM THICKENING. [facility], , 05/20/2024 1:46 PM
--- NOTE | 2024-05-20 14:08 | CT ---
EXAMINATION TYPE: CT lumbar spine wo con DATE OF EXAM: 05/20/2024 11:56 AM COMPARISON: 03/31/2024 CLINICAL INDICATION: Female, 83 years old with history of recurrent falls, Recurrent falls, chronic l ower back pain, TECHNIQUE: Contiguous axial scanning of the lumbar spine without IV contrast. Coronal and sagittal re constructions performed. CT DLP: 890 mGycm, Automated exposure control for dose reduction was used. FINDINGS: There is a degenerative levoconvex scoliosis of the lumbar spine. Additional reversal of the upper taylor mbar lordosis. Transitional L5 lumbosacral segment with bilateral degenerative assimilation joints. Moderate multilevel degenerative disc disease redemonstrated. Previous inferior endplate fracture of L1 shows some interval healing change. Mild retropulsion into the ventral spinal canal is unchanged. Mild superior endplate deformity T11 is unchanged. Mild anterior wedge deformity secondary to old superior endplate deformity L2 is unchanged. Inferior endplate deformity of L3 is unchanged. Mild retropulsion into the ventral spinal canal is un changed. Moderate facet arthropathy is present throughout. Degenerative grade 1 retrolisthesis L4-L5 and L5-S1 is unchanged. Overall mild spinal canal stenosis L1-L2 and moderate at L3-L4 secondary to retropulsion is unchanged . Mild spinal canal narrowing at L4-L5 due to disc bulge, ligamentum flavum thickening, and grade 1 ret rolisthesis is unchanged. No high-grade canal compromise is seen. On the left, changes result in moderate to severe neuroforaminal stenosis at L3-L4, moderate at L5-S1 , and mild at L4-L5. On the right, changes is noted in moderate to severe neuroforaminal stenosis at L3-L4 and L5-S1. Mild to at L4-L5. Moderate atherosclerotic calcifications abdominal aorta. Fusiform dilatation infrarenal abdominal aor ta to 2.4 cm. No umesh aneurysm. IMPRESSION: 1. 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 RETROPULSION INTO THE VENTRAL SPINAL CANAL AT L1-L2 AND L3-L4 RESULTS IN MILD OVERALL SPINAL CANAL STENOSIS. 2. SOME INTERVAL HEALING CHANGE OF THE INFERIOR ENDPLATE FRACTURE PREVIOUSLY SEEN AT L1. 3. DEGENERATIVE GRADE 1 RETROLISTHESIS L4-L5 AND L5-S1. 4. DEGENERATIVE CHANGES AND GRADE 1 RETROLISTHESIS AT L2-L4 CONTRIBUTES TO A MILD SPINAL CANAL STENOS IS HERE WELL. 5. Moderate to severe bilateral neural foraminal stenosis at L3-L4 and on the right at L5-S1. [facility], Workstation: [id number], 05/20/2024 2:06 PM
--- NOTE | 2024-05-20 14:17 | P.PN ---
Subjective Progress Note Date: 05/20/24 Hospital course: Patient is a 83-year-old female with past medical history significant for atrial fibrillation anticoagulated on Eliquis, asthma, COPD on 5 L nasal cannula at home, CVA/TIA, GERD, hyperlipidemia, and likely dementia (son reports patient is on dementia meds without an official diagnosis) who presented to the emergency room for altered mental status. Patient's son is in the room and provides most of the history. Patient's son states that recently she has been having a number of falls. Son also states she has been off of her Eliquis due to insurance issues. He states that she has home oxygen but refuses to take it, does not always take her medications, and has walkers but does not always use them. He reports that she has a home health aide from 02-24 and him and his sister tried to look after her the remaining time. They live in the same house as her. Son reports that she had fallen during the night and he was awoken by paramedics. He reports the patient was found banging on the door with a hammer. EMS reports unsafe living conditions for the patient. Son denies any recent changes to her medications and states that they ensure that she takes them daily. He also states she has poor oral intake. Patient is relatively poor historian, but denies chest pain shortness of breath, nausea, vomiting, diarrhea, chills, fevers, dysuria, or bowel complaints. She states that while getting around she sometimes uses her walker, but sometimes she just attempts to ambulate on her own. The son requested for possible placement due to difficulty for caring for her increasing needs and worsening mental capacity with falls. Vitals on admission temperature 97.4, heart rate 61 bpm, respiratory rate 18, blood pressure 107/70, O2 saturation 97% on 3 L nasal cannula EKG independently interpreted as sinus rhythm with rate of 69 bpm and QTc of [address] of abdomen and pelvis showed colonic diverticulosis and moderate volume diffuse colonic stool Labs on admission show WBC 6.8, hemoglobin 11.2, MCV 89.7, platelets 228. PT 10.5, INR 0.9, PTT 22.6. Sodium 137, potassium 4.1, chloride 103, bicarb 29, BUN 21, creatinine 0.9, glucose 91. Calcium 9, phosphorus 4.7, Magnesium 2. LFTs unremarkable. Troponin negative. Subjective: Patient seen and examined at bedside. No acute events overnight. Patient has complaint of lower back pain. Pertinent positives and negatives as discussed above, a complete review of systems was performed and all other systems are negative. Vitals: Signs Reviewed Physical Exam: General: nontoxic, no distress, appears at stated age Derm: warm, dry, intact Head: atraumatic, normocephalic, symmetric Eyes: EOMI, anicteric sclera Mouth: no lip lesion, mucus membranes moist Cardiovascular: S1 S2 reg, no murmur, rubs, or gallops Lungs: CTA bilateral, no rhonchi, no rales, no accessory muscle use Abdominal: soft, non-tender to palpataion, no appreciable organomegaly Extremities: no gross muscle atrophy, no edema, no contractures Neuro: Alert, Oriented, CNII-XII grossly intact, gait normal Psych: well appearing, appropriate affect Assessment and Plan: Patient is a 83-year-old female past medical history significant for A-fib anticoagulated on Eliquis, asthma, COPD, CVA TIA, GERD, hyperlipidemia presented for altered mental status. Active: Altered mental status, possibly polypharmacy vs dementia Patient has had several visits to the ER, and several falls Case management on the case regarding living situation Neurology following Will review patient's home medications Back pain Acetaminophen 650 mg p.o. every 6 hours as needed COPD maintained on home oxygen (5 L/min NC), not in acute exacerbation Resume home meds once confirmed Continue supplemental NC oxygen to maintain O2 sats greater than 94% Normocytic anemia Hemoglobin 11.2 Continue to monitor Prerenal azotemia, possibly secondary to dehydration Continue IV fluids Continue to monitor Hyperphosphatemia Continue to monitor Weakness States she feels unstable while walking at home Physical therapy consulted Fall precautions Chronic: Atrial Fibrillation anticoagulated on Eliquis, currently sinus Continue Eliquis 2.5 mg twice daily GERD Continue omeprazole 40 mg daily Hyperlipidemia Continue atorvastatin 40 mg F: Continue 0.9% normal saline at 75 mL/h E: Replete as needed N: Regular diet A: Fall precautions DVT prophylaxis: Eliquis 2.5 mg bid Code status: FULL CODE Anticipated discharge place: [] Anticipated discharge time: [] Юлия Beavers MD PGY-1 IM Dictation was produced using [employer] software. please excuse any grammatical, word or spelling errors. I saw and evaluated the patient during the gunn and critical portions of this encounter, and discussed the case in detail with the resident author of this not e, I agree with the Assessment and Plan, and my changes, if any, are highlighted in blue. Objective - Vital Signs Vital signs: Vital Signs Temp 98.4 F 05/19/24 20:41 Pulse 67 05/20/24 06:00 Resp 16 05/20/24 06:00 BP 119/53 05/20/24 06:00 Pulse Ox 96 05/20/24 06:00 FiO2 Intake & Output 05/19/24 05/20/24 05/20/24 18:59 06:59 18:59 Weight 58.967 kg - Labs CBC & Chem 7: 05/20/24 06:27 05/20/24 06:27 Labs: Abnormal Lab Results - Last 24 Hours (Table) 05/19/24 05/19/24 05/19/24 Range/Units 21:01 21:01 21:01 RBC 3.76 L (3.80-5.40) m/uL Hgb 11.2 L (11.4-16.0) gm/dL Hct 33.7 L (34.0-46.0) % BUN 21 H (7-17) mg/dL Plasma Lactic Acid Osmel 0.6 L (0.7-2.0) mmol/L Phosphorus 4.7 H (2.5-4.5) mg/dL Total Protein 5.7 L (6.3-8.2) g/dL Albumin (3.5-5.0) g/dL Urine Protein (Negative) Urine Ketones (Negative) Urine Blood (Negative) Urine RBC (0-5) /hpf Urine Mucus (None) /hpf Urine Yeast (Budding) (None) /hpf 05/19/24 05/20/24 05/20/24 Range/Units 22:46 06:27 06:27 RBC 3.54 L (3.80-5.40) m/uL Hgb 10.8 L (11.4-16.0) gm/dL Hct 32.5 L (34.0-46.0) % BUN 19 H (7-17) mg/dL Plasma Lactic Acid Osmel (0.7-2.0) mmol/L Phosphorus (2.5-4.5) mg/dL Total Protein 5.1 L (6.3-8.2) g/dL Albumin 3.0 L (3.5-5.0) g/dL Urine Protein Trace H (Negative) Urine Ketones Trace H (Negative) Urine Blood Small H (Negative) Urine RBC 6 H (0-5) /hpf Urine Mucus Rare H (None) /hpf Urine Yeast (Budding) Few H (None) /hpf
[2024-05-20] MEDS ORDERED: HALOPERIDOL LACTATE 5 MG/ML 1 ML VIAL IM PRN (15:40)
[2024-05-20] MEDS: ACETAMINOPHEN TAB 325 MG TAB PO PRN (19:51)
[2024-05-20] MEDS ORDERED: ATORVASTATIN 40 MG TAB PO SCH (21:00)
[2024-05-20] MEDS ORDERED: ALBUTEROL NEBULIZED 2.5 MG/3 ML INHALATION PRN (21:25)
[2024-05-21 09:34] LABS: Basophils % (A) 0 %; Eosinophils # (A) 0.1 k/uL (0-0.7); Eosinophils % (A) 3 %; HCT 34.5 % (34.0-46.0); HGB 11.3 gm/dL (11.4-16.0); Lymphocytes % (A) 21 %; MCHC 32.8 g/dL (31.0-37.0); MCV 91.6 fL (80.0-100.0); Mean Platelet Volume 6.7; Monocytes # (A) 0.3 k/uL (0-1.0); Monocytes % (A) 7 %; Neutrophils # (A) 3.2 k/uL (1.3-7.7); Neutrophils % (A) 66 %; Platelet Count 186 k/uL (150-450); RBC 3.76 m/uL (3.80-5.40); RDW 13.3 % (11.5-15.5); WBC 4.8 k/uL (3.8-10.6)
[2024-05-21 09:51] LABS: African American GFR (CKD) >90 (>60 ml/min/1.73 sqM); Anion Gap 5 mmol/L; Blood Urea Nitrogen 9 mg/dL (7-17); Calcium 8.6 mg/dL (8.4-10.2); Carbon Dioxide 28 mmol/L (22-30); Chloride 103 mmol/L (98-107); Glucose 110 mg/dL (74-99); Magnesium 1.8 mg/dL (1.6-2.3); Non-African American GFR(CKD) 80 (>60 ml/min/1.73 sqM); Potassium 3.7 mmol/L (3.5-5.1); Sodium 136 mmol/L (137-145)
[2024-05-21] MEDS: MEMANTINE 10 MG TAB PO SCH (11:32)
[2024-05-21] MEDS: FLUoxetine HCL 20 MG CAP PO SCH (11:32)
[2024-05-21] MEDS: ALBUTEROL HFA INHALER INHALATION SCH (12:06)
[2024-05-21] MEDS ORDERED: ALBUTEROL NEBULIZED 2.5 MG/3 ML INHALATION SCH (13:00)
--- NOTE | 2024-05-21 13:50 | P.PN ---
Subjective Progress Note Date: 05/21/24 Hospital course: Patient is a 83-year-old female with past medical history significant for atrial fibrillation anticoagulated on Eliquis, asthma, COPD on 5 L nasal cannula at home, CVA/TIA, GERD, hyperlipidemia, and likely dementia (son reports patient is on dementia meds without an official diagnosis) who presented to the emergency room for altered mental status. Patient's son is in the room and provides most of the history. Patient's son states that recently she has been having a number of falls. Son also states she has been off of her Eliquis due to insurance issues. He states that she has home oxygen but refuses to take it, does not always take her medications, and has walkers but does not always use them. He reports that she has a home health aide from 02-24 and him and his sister tried to look after her the remaining time. They live in the same house as her. Son reports that she had fallen during the night and he was awoken by paramedics. He reports the patient was found banging on the door with a hammer. EMS reports unsafe living conditions for the patient. Son denies any recent changes to her medications and states that they ensure that she takes them daily. He also states she has poor oral intake. Patient is relatively poor historian, but denies chest pain shortness of breath, nausea, vomiting, diarrhea, chills, fevers, dysuria, or bowel complaints. She states that while getting around she sometimes uses her walker, but sometimes she just attempts to ambulate on her own. The son requested for possible placement due to difficulty for caring for her increasing needs and worsening mental capacity with falls. Vitals on admission temperature 97.4, heart rate 61 bpm, respiratory rate 18, blood pressure 107/70, O2 saturation 97% on 3 L nasal cannula EKG independently interpreted as sinus rhythm with rate of 69 bpm and QTc of [address] of abdomen and pelvis showed colonic diverticulosis and moderate volume diffuse colonic stool Labs on admission show WBC 6.8, hemoglobin 11.2, MCV 89.7, platelets 228. PT 10.5, INR 0.9, PTT 22.6. Sodium 137, potassium 4.1, chloride 103, bicarb 29, BUN 21, creatinine 0.9, glucose 91. Calcium 9, phosphorus 4.7, Magnesium 2. LFTs unremarkable. Troponin negative. Subjective: Patient seen and examined at bedside. No acute events overnight. Pertinent positives and negatives as discussed above, a complete review of systems was performed and all other systems are negative. Vitals: Signs Reviewed Physical Exam: General: nontoxic, no distress, appears at stated age Derm: warm, dry, intact Head: atraumatic, normocephalic, symmetric Eyes: EOMI, anicteric sclera Mouth: no lip lesion, mucus membranes moist Cardiovascular: S1 S2 reg, no murmur, rubs, or gallops Lungs: CTA bilateral, no rhonchi, no rales, no accessory muscle use Abdominal: soft, non-tender to palpataion, no appreciable organomegaly Extremities: no gross muscle atrophy, no edema, no contractures Neuro: Alert, Oriented, CNII-XII grossly intact, gait normal Psych: well appearing, appropriate affect Assessment and Plan: Patient is a 83-year-old female past medical history significant for A-fib anticoagulated on Eliquis, asthma, COPD, CVA TIA, GERD, hyperlipidemia presented for altered mental status. Active: Altered mental status, possibly polypharmacy vs dementia Patient has had several visits to the ER, and several falls Case management on the case regarding living situation, ECF versus assisted living, pending auth Will review patient's home medications Lumbar spine CT Cervical spine CT Neurology following Back pain Acetaminophen 650 mg p.o. every 6 hours as needed COPD maintained on home oxygen (5 L/min NC), not in acute exacerbation Resume home meds once confirmed Continue supplemental [place] oxygen to maintain O2 sats greater than 94% Normocytic anemia Hemoglobin 11.2 Continue to monitor Prerenal azotemia, possibly secondary to dehydration Continue IV fluids Continue to monitor Hyperphosphatemia Continue to monitor Weakness States she feels unstable while walking at home Physical therapy consulted Fall precautions Chronic: Atrial Fibrillation anticoagulated on Eliquis, currently sinus Continue Eliquis 2.5 mg twice daily GERD Continue omeprazole 40 mg daily Hyperlipidemia Continue atorvastatin 40 mg F: Continue 0.9% normal saline at 75 mL/h E: Replete as needed N: Regular diet A: Fall precautions DVT prophylaxis: Eliquis 2.5 mg bid Code status: FULL CODE Anticipated discharge place: ECF/assisted living Anticipated discharge time: 24-48 hours Юлия Beavers MD PGY-1 IM Dictation was produced using dragon dictation software. please excuse any grammatical, word or spelling errors. I saw and evaluated the patient during the gunn and critical portions of this encounter, and discussed the case in detail with the resident author of this note, I agree with the Assessment and Plan, and my changes, if any, are highlighted in blue. Objective - Vital Signs Vital signs: Vital Signs Temp 98.2 F 05/21/24 01:30 Pulse 76 05/21/24 01:30 Resp 16 05/21/24 01:30 BP 139/69 05/21/24 01:30 Pulse Ox 99 05/21/24 01:30 FiO2 Intake & Output 05/20/24 05/21/24 05/21/24 18:59 06:59 18:59 Weight 58.967 kg Other: Voiding Method Toilet Toilet Bedside Commode # Voids 2 1 - Labs CBC & Chem 7: 05/21/24 09:02 05/21/24 09:02
[2024-05-21] MEDS: PROPRANOLOL 10 MG TAB PO SCH (16:30)
[2024-05-21] MEDS: traMADol 50 MG TAB PO PRN (21:02)
[2024-05-21] MEDS: busPIRone HCl 5 MG TAB PO SCH (21:02)
[2024-05-22 07:07] LABS: Basophils % (A) 0 %; Eosinophils # (A) 0.2 k/uL (0-0.7); Eosinophils % (A) 3 %; HCT 35.8 % (34.0-46.0); HGB 11.7 gm/dL (11.4-16.0); Lymphocytes # (A) 1.3 k/uL (1.0-4.8); Lymphocytes % (A) 23 %; MCH 29.4 pg (25.0-35.0); MCHC 32.7 g/dL (31.0-37.0); Mean Platelet Volume 7.5; Monocytes # (A) 0.4 k/uL (0-1.0); Monocytes % (A) 7 %; Neutrophils # (A) 3.7 k/uL (1.3-7.7); Neutrophils % (A) 64 %; Platelet Count 199 k/uL (150-450); RBC 3.98 m/uL (3.80-5.40); RDW 13.6 % (11.5-15.5); WBC 5.8 k/uL (3.8-10.6)
[2024-05-22 07:18] LABS: African American GFR (CKD) >90 (>60 ml/min/1.73 sqM); Anion Gap 4 mmol/L; Blood Urea Nitrogen 5 mg/dL (7-17); Calcium 8.9 mg/dL (8.4-10.2); Carbon Dioxide 33 mmol/L (22-30); Chloride 101 mmol/L (98-107); Glucose 86 mg/dL (74-99); Magnesium 1.9 mg/dL (1.6-2.3); Non-African American GFR(CKD) 81 (>60 ml/min/1.73 sqM); Potassium 3.6 mmol/L (3.5-5.1); Sodium 138 mmol/L (137-145)
--- NOTE | 2024-05-22 11:32 | P.PN ---
Subjective Progress Note Date: 05/22/24 Hospital course: Patient is a 83-year-old female with past medical history significant for atrial fibrillation anticoagulated on Eliquis, asthma, COPD on 5 L nasal cannula at home, CVA/TIA, GERD, hyperlipidemia, and likely dementia (son reports patient is on dementia meds without an official diagnosis) who presented to the emergency room for altered mental status. Patient's son is in the room and provides most of the history. Patient's son states that recently she has been having a number of falls. Son also states she has been off of her Eliquis due to insurance issues. He states that she has home oxygen but refuses to take it, does not always take her medications, and has walkers but does not always use them. He reports that she has a home health aide from 02-24 and him and his sister tried to look after her the remaining time. They live in the same house as her. Son reports that she had fallen during the night and he was awoken by paramedics. He reports the patient was found banging on the door with a hammer. EMS reports unsafe living conditions for the patient. Son denies any recent changes to her medications and states that they ensure that she takes them daily. He also states she has poor oral intake. Patient is relatively poor historian, but denies chest pain shortness of breath, nausea, vomiting, diarrhea, chills, fevers, dysuria, or bowel complaints. She states that while getting around she sometimes uses her walker, but sometimes she just attempts to ambulate on her own. The son requested for possible placement due to difficulty for caring for her increasing needs and worsening mental capacity with falls. Vitals on admission temperature 97.4, heart rate 61 bpm, respiratory rate 18, blood pressure 107/70, O2 saturation 97% on 3 L nasal cannula EKG independently interpreted as sinus rhythm with rate of 69 bpm and QTc of [address] of abdomen and pelvis showed colonic diverticulosis and moderate volume diffuse colonic stool Labs on admission show WBC 6.8, hemoglobin 11.2, MCV 89.7, platelets 228. PT 10.5, INR 0.9, PTT 22.6. Sodium 137, potassium 4.1, chloride 103, bicarb 29, BUN 21, creatinine 0.9, glucose 91. Calcium 9, phosphorus 4.7, Magnesium 2. LFTs unremarkable. Troponin negative. Subjective: Patient seen and examined at bedside. No acute events overnight. Pertinent positives and negatives as discussed above, a complete review of systems was performed and all other systems are negative. Vitals: Signs Reviewed Physical Exam: General: nontoxic, no distress, appears at stated age Derm: warm, dry, intact Head: atraumatic, normocephalic, symmetric Eyes: EOMI, anicteric sclera Mouth: no lip lesion, mucus membranes moist Cardiovascular: S1 S2 reg, no murmur, rubs, or gallops Lungs: CTA bilateral, no rhonchi, no rales, no accessory muscle use Abdominal: soft, non-tender to palpataion, no appreciable organomegaly Extremities: no gross muscle atrophy, no edema, no contractures Neuro: Alert, Oriented, CNII-XII grossly intact, gait normal Psych: well appearing, appropriate affect Assessment and Plan: Patient is a 83-year-old female past medical history significant for A-fib anticoagulated on Eliquis, asthma, COPD, CVA TIA, GERD, hyperlipidemia presented for altered mental status. Active: Altered mental status, possibly polypharmacy vs dementia Patient has had several visits to the ER, and several falls Neurology following, recommend outpatient follow-up Case management on the case regarding living situation, cleared for subacute rehab tomorrow Back pain Acetaminophen 650 mg p.o. every 6 hours as needed COPD maintained on home oxygen (5 L/min NC), not in acute exacerbation Albuterol inhaler Continue supplemental NC oxygen to maintain O2 sats greater than 94% Normocytic anemia Hemoglobin 11.2 Continue to monitor Prerenal azotemia, possibly secondary to dehydration Continue IV fluids Continue to monitor Hyperphosphatemia Continue to monitor Weakness States she feels unstable while walking at home Physical therapy consulted Fall precautions Agitation Haldol 1 mg IM every 4 hours as needed Chronic: Atrial Fibrillation anticoagulated on Eliquis, currently sinus Continue Eliquis 2.5 mg twice daily GERD Continue omeprazole 40 mg daily Hyperlipidemia Continue atorvastatin 40 mg Anxiety/depression: BuSpar 5 mg p.o. twice daily, fluoxetine 40 mg p.o. daily F: Continue 0.9% normal saline at 75 mL/h E: Replete as needed N: Regular diet A: Fall precautions DVT prophylaxis: Eliquis 2.5 mg bid Code status: FULL CODE Anticipated discharge place: ECF/assisted living Anticipated discharge time: Likely tomorrow Юлия Beavers MD PGY-1 IM Dictation was produced using [employer] dictation software. please excuse any grammatical, word or spelling errors. I saw and evaluated the patient during the gunn and critical portions of this encounter, and discussed the case in detail with the resident author of this note, I agree with the Assessment and Plan, and my changes, if any, are highlighted below. No acute events overnight. BMP shows bicarb 33, BUN 5. Mag 1.9. Pending placement. Objective - Vital Signs Vital signs: Vital Signs Temp 97.6 F 05/22/24 07:44 Pulse 76 05/22/24 07:44 Resp 20 05/22/24 07:44 BP 149/76 05/22/24 07:44 Pulse Ox 98 05/22/24 07:44 FiO2 Intake & Output 05/21/24 05/22/24 05/22/24 18:59 06:59 18:59 Other: Voiding Method Toilet # Voids 1 4 # Bowel Movements 1 - Labs CBC & Chem 7: 05/22/24 06:48 05/22/24 06:48 Labs: Abnormal Lab Results - Last 24 Hours (Table) 05/22/24 Range/Units 06:48 Carbon Dioxide 33 H (22-30) mmol/L BUN 5 L (7-17) mg/dL
--- NOTE | 2024-05-22 16:54 | P.PN ---
Subjective Progress Note Date: 05/22/24 The patient and there is no new neurological issues. She feels she is doing well. Objective - Vital Signs Vital signs: Vital Signs Temp 98.5 F 05/22/24 13:22 Pulse 62 05/22/24 13:22 Resp 18 05/22/24 13:22 BP 143/75 05/22/24 13:22 Pulse Ox 99 05/22/24 13:22 FiO2 Intake & Output 05/21/24 05/22/24 05/22/24 18:59 06:59 18:59 Other: Voiding Method Toilet # Voids 1 4 # Bowel Movements 1 - Exam General:Lying in bed and is not in acute distress. Neuro: Limited because of her underlying dementia. Patient is awake alert oriented to self only. She stated that she is at home. She did not know the date. She was able to name pen correctly after a couple tries. She is following few simple commands. Language is limited Visual palencia are full to confrontation. Extraocular movement is intact no nystagmus. No facial weakness. No dysarthria. Tongue is midline moves [id number] with any difficulty The motor: The strength is limited because of her overall cooperation and she stated that she has pain throughout. But she is able to lift up all extremity above gravity. Some of the workup during this hospital visit consisted of I reviewed the lab workup. CT of the head on 05/18/2024 ER visit. Reported as no acute intracranial process. CT cervical spine is reported as no acute fracture of the cervical spine. Reversal of the normal cervical lordosis. Moderate degenerative disc disease especially at C3-C4 and C6-C7. Mild to moderate facet and uncovertebral joint arthropathy. Degenerative grade 1 spondylolisthesis C3-C6 level. There may be a focal moderate spinal canal stenosis at C6-C7 secondary due to disc bulge and ligamentum flavum thickening. CT lumbar spine is reported as degenerative scoliosis of the lumbar spine with multiple endplate deformity all which appear chronic now. Shows moderate to severe bilateral neuroforaminal stenosis L3-L4 and right L5-S1 - Labs CBC & Chem 7: 05/22/24 06:48 05/22/24 06:48 Labs: Abnormal Lab Results - Last 24 Hours (Table) 05/22/24 Range/Units 06:48 Carbon Dioxide 33 H (22-30) mmol/L BUN 5 L (7-17) mg/dL Assessment and Plan Assessment: This is an 83-year-old woman who has progressive dementia, recurrent falls, essential tremor who called the hospital according to the daughter for unknown reason. Per the daughter about 2 days ago she complained of a headache and she was brought to the hospital and had CT of the head which was was unremarkable. She was seen by different neurologist locally as an outpatient. Altered mental status is likely due to her progressive dementia Underlying history of dementia and patient is on the mend Recurrent falls. Refuses physical therapy per the daughter Patient has cervical stenosis/spondylosis as well as lumbar stenosis spondylosis. Essential tremor History of TIA Chronic lumbar back pain Unsteady gait at baseline History of atrial fibrillation on Eliquis Plan: And orthopedic evaluation for cervical and lumbar stenosis as an outpatient. I doubt any surgical intervention as an outpatient since patient has progressive dementia. Physical therapy is consulted According to the daughter patient had EEG as an outpatient and no seizure. Recommend resuming her home dose of Namenda Consider placement for the patient because of her progressive dementia and recurrent falls will defer the final decision to the patient family. Upon discharge recommend the patient to follow-up with a neurologist as an outpatient within 3 weeks Will defer the rest of the medical management to primary team next There is no further neurological workup. Will sign off. Please reconsult if needed. Time with Patient: Less than 30
[2024-05-23 08:23] VITALS: RESP 16
[2024-05-23 08:49] LABS: African American GFR (CKD) >90 (>60 ml/min/1.73 sqM); Anion Gap 5 mmol/L; Blood Urea Nitrogen 5 mg/dL (7-17); Calcium 8.9 mg/dL (8.4-10.2); Carbon Dioxide 29 mmol/L (22-30); Chloride 105 mmol/L (98-107); Glucose 90 mg/dL (74-99); Non-African American GFR(CKD) 85 (>60 ml/min/1.73 sqM); Potassium 3.6 mmol/L (3.5-5.1); Sodium 139 mmol/L (137-145)
--- NOTE | 2024-05-23 12:17 | P.PN ---
Subjective Progress Note Date: 05/23/24 Hospital course: Patient is a 83-year-old female with past medical history significant for atrial fibrillation anticoagulated on Eliquis, asthma, COPD on 5 L nasal cannula at home, CVA/TIA, GERD, hyperlipidemia, and likely dementia (son reports patient is on dementia meds without an official diagnosis) who presented to the emergency room for altered mental status. Patient's son is in the room and provides most of the history. Patient's son states that recently she has been having a number of falls. Son also states she has been off of her Eliquis due to insurance issues. He states that she has home oxygen but refuses to take it, does not always take her medications, and has walkers but does not always use them. He reports that she has a home health aide from 02-24 and him and his sister tried to look after her the remaining time. They live in the same house as her. Son reports that she had fallen during the night and he was awoken by paramedics. He reports the patient was found banging on the door with a hammer. EMS reports unsafe living conditions for the patient. Son denies any recent changes to her medications and states that they ensure that she takes them daily. He also states she has poor oral intake. Patient is relatively poor historian, but denies chest pain shortness of breath, nausea, vomiting, diarrhea, chills, fevers, dysuria, or bowel complaints. She states that while getting around she sometimes uses her walker, but sometimes she just attempts to ambulate on her own. The son requested for possible placement due to difficulty for caring for her increasing needs and worsening mental capacity with falls. Vitals on admission temperature 97.4, heart rate 61 bpm, respiratory rate 18, blood pressure 107/70, O2 saturation 97% on 3 L nasal cannula EKG independently interpreted as sinus rhythm with rate of 69 bpm and QTc of [address] of abdomen and pelvis showed colonic diverticulosis and moderate volume diffuse colonic stool Labs on admission show WBC 6.8, hemoglobin 11.2, MCV 89.7, platelets 228. PT 10.5, INR 0.9, PTT 22.6. Sodium 137, potassium 4.1, chloride 103, bicarb 29, BUN 21, creatinine 0.9, glucose 91. Calcium 9, phosphorus 4.7, Magnesium 2. LFTs unremarkable. Troponin negative. Subjective: Patient seen and examined at bedside. No acute events overnight. Pertinent positives and negatives as discussed above, a complete review of systems was performed and all other systems are negative. Vitals: Signs Reviewed Physical Exam: General: nontoxic, no distress, appears at stated age Derm: warm, dry, intact Head: atraumatic, normocephalic, symmetric Eyes: EOMI, anicteric sclera Mouth: no lip lesion, mucus membranes moist Cardiovascular: S1 S2 reg, no murmur, rubs, or gallops Lungs: CTA bilateral, no rhonchi, no rales, no accessory muscle use Abdominal: soft, non-tender to palpataion, no appreciable organomegaly Extremities: no gross muscle atrophy, no edema, no contractures Neuro: Alert, Oriented, CNII-XII grossly intact, gait normal Psych: well appearing, appropriate affect Pertinent Labs: BUN 5, creatinine 0.60 Assessment and Plan: Patient is a 83-year-old female past medical history significant for A-fib anticoagulated on Eliquis, asthma, COPD, CVA TIA, GERD, hyperlipidemia presented for altered mental status. Active: Altered mental status, possibly polypharmacy vs dementia Patient has had several visits to the ER, and several falls Neurology following, recommend outpatient follow-up Case management on the case regarding living situation, cleared for discharge at [facility] tomorrow Back pain Acetaminophen 650 mg p.o. every 6 hours as needed COPD maintained on home oxygen (5 L/min NC), not in acute exacerbation Albuterol inhaler Continue supplemental NC oxygen to maintain O2 sats greater than 94% Normocytic anemia Hemoglobin 11.2 Continue to monitor Prerenal azotemia, possibly secondary to dehydration Continue IV fluids Continue to monitor Hyperphosphatemia Continue to monitor Weakness States she feels unstable while walking at home Physical therapy consulted Fall precautions Agitation Haldol 1 mg IM every 4 hours as needed Chronic: Atrial Fibrillation anticoagulated on Eliquis, currently sinus Continue Eliquis 2.5 mg twice daily GERD Continue omeprazole 40 mg daily Hyperlipidemia Continue atorvastatin 40 mg Anxiety/depression: BuSpar 5 mg p.o. twice daily, fluoxetine 40 mg p.o. daily F: Continue 0.9% normal saline at 75 mL/h E: Replete as needed N: Regular diet A: Fall precautions DVT prophylaxis: Eliquis 2.5 mg bid Code status: FULL CODE Anticipated discharge place: [facility]/assisted living Anticipated discharge time: Likely tomorrow Юлия Beavers MD PGY-1 IM Dictation was produced using [employer] dictation software. please excuse any grammatical, word or spelling errors. I saw and evaluated the patient during the gunn and critical portions of this e ncounter, and discussed the case in detail with the resident author of this note, I agree with the Assessment and Plan, and my changes, if any, are highlighted below. Objective - Vital Signs Vital signs: Vital Signs Temp 97.9 F 05/23/24 11:52 Pulse 61 05/23/24 11:52 Resp 16 05/23/24 11:52 BP 121/68 05/23/24 11:52 Pulse Ox 98 05/23/24 09:03 FiO2 Intake & Output 05/22/24 05/23/24 05/23/24 18:59 06:59 18:59 Intake Total 898 237 Balance 898 237 Intake: Oral 898 237 Other: Voiding Method Toilet Toilet Bedside Commode Bedside Commode # Voids 4 3 # Bowel Movements 2 - Labs CBC & Chem 7: 05/22/24 06:48 05/23/24 08:02 Labs: Abnormal Lab Results - Last 24 Hours (Table) 05/23/24 Range/Units 08:02 BUN 5 L (7-17) mg/dL
--- NOTE | 2024-05-23 15:43 | CDI ---
Documentation Clarification Form Date: 05/23/2024 02:51:54 PM From: Becky Sands RN, CCDS Phone: [phone] Admit Date: 05/21/2024 10:29:00 AM Patient Name: Angel Gomez Visit Number: [id number] Discharge Date: ATTENTION: The Clinical Documentation Specialists (CDI) and [facility] Coding Staff appreciate your assistance in clarifying documentation. Please respond to the clarification below the line at the bottom and electronically sign. The CDI & [facility] Coding staff will review the response and follow-up if needed. Please note: Queries are made part of the Legal Health Record. If you have any questions, please contact the author of this message via ITS. Dr. Maricarmen Ambrocio Your patient has a diagnosis on COPD maintained on home oxygen (5 L/MIN NC). Based on this information and the findings below, is there an additional diagnosis that is clinically appropriate for this patient? History/Risk Factors: Atrial Fibrillation, Asthma, COPD, CVA/TIA, Dementia, Eye disorder, Hyperlipidemia, Tobacco use: Current some day smoker Home oxygen:5/L NC Clinical Indicators: 83-year-old female present to ER evaluation of altered mental status Vital signs: 128/60 67 18 98.4 99% 3/L Lung/Breathing assessment: Expiratory wheezing noted bilaterally Treatment: Ventolin Nebulized TID, PRN, Monitor O2 sat's (titrate) Is there an additional diagnosis that is clinically appropriate for this patient? [ x ] Chronic hypoxic Respiratory Failure [ ] No additional diagnosis/not clinically significant [ ] Other Diagnosis, please specify [ ] Unable to determine (Template Last Revised: April 2023) MTDD
--- NOTE | 2024-05-23 16:39 | CDI ---
Documentation Clarification Form Date: 05/23/2024 03:54:31 PM From: Becky Sands RN, CCDS Phone: [phone] Admit Date: 05/21/2024 10:29:00 AM Patient Name: Angel Gomez Visit Number: [id number] Discharge Date: ATTENTION: The Clinical Documentation Specialists (CDI) and [facility] Coding Staff appreciate your assistance in clarifying documentation. Please respond to the clarification below the line at the bottom and electronically sign. The CDI & [facility] Coding staff will review the response and follow-up if needed. Please note: Queries are made part of the Legal Health Record. If you have any questions, please contact the author of this message via ITS. DoctorKaley Ambrocio Your patient has polypharmacy documentation in the H/P and subsequent progress notes. She present with altered mental status. Based on this information and the findings below, is there an additional diagnosis that is clinically appropriate for this patient? Patient history/risk factors: Atrial Fibrillation, Asthma, COPD, CVA/TIA, Dementia, Eye disorder, Hyperlipidemia, Current some day smoker Clinical Indicators: 83-year-old female to the ER for evaluation of altered mental status debility weakness. Home meds include Ultram 50 MG PO BID PRN, Buspar 5 MG PO BID, Xanax 0.5 MG PO TID PRN, and Prozac 40 MG PO Q Day 05/19 Vital signs: 128/60 67 18 98.4 99% 3/L 05/19 Labs WBC 6.8 BUN 21 Cr 0.90, Phos 4.7 Treatment: Neuro checks Q D and PRN, per protocol Namenda 10 MG PO Daily Prozac 40 MG PO Daily .9NS IV@ 75 ML/HR Ultram 50 MG PO BID PRN Is there an additional diagnosis that is clinically appropriate for this patient? [ ] Toxic Encephalopathy POA [ ] Dementia, progressive, Alzheimer's type [x ] Unable to determine [ ] Other, please specify (Template Last Reviewed: May 2022) MTDD
--- NOTE | 2024-05-24 11:05 | P.DS ---
Providers Date of admission: 05/21/24 10:29 Discharge Diagnosis: Dementia Back pain COPD maintained on home oxygen (5 L/min NC), not in acute exacerbation Normocytic anemia Prerenal azotemia likely secondary to dehydration Hyperphosphatemia Weakness Agitation Atrial fibrillation anticoagulated on Eliquis GERD Hyperlipidemia Anxiety Depression Hospital Course: Patient is a 83-year-old female with past medical history significant for atrial fibrillation anticoagulated on Eliquis, asthma, COPD on 5 L nasal cannula at home, CVA/TIA, GERD, hyperlipidemia, and likely dementia (son reports patient is on dementia meds without an official diagnosis) who presented to the emergency room for altered mental status. Patient's son is in the room and provides most of the history. Patient's son states that recently she has been having a number of falls. Son also states she has been off of her Eliquis due to insurance issues. He states that she has home oxygen but refuses to take it, does not always take her medications, and has walkers but does not always use them. He reports that she has a home health aide from 02-24 and him and his sister tried to look after her the remaining time. They live in the same house as her. Son reports that she had fallen during the night and he was awoken by paramedics. He reports the patient was found banging on the door with a hammer. EMS reports unsafe living conditions for the patient. Son denies any recent changes to her medications and states that they ensure that she takes them daily. He also states she has poor oral intake. Patient is relatively poor historian, but denies chest pain shortness of breath, nausea, vomiting, diarrhea, chills, fevers, dysuria, or bowel complaints. She states that while getting around she sometimes uses her walker, but sometimes she just attempts to ambulate on her own. The son requested for possible placement due to difficulty for caring for her increasing needs and worsening mental capacity with falls. Vitals on admission temperature 97.4, heart rate 61 bpm, respiratory rate 18, blood pressure 107/70, O2 saturation 97% on 3 L nasal cannula EKG independently interpreted as sinus rhythm with rate of 69 bpm and QTc of [address] of abdomen and pelvis showed colonic diverticulosis and moderate volume diffuse colonic stool Labs on admission show WBC 6.8, hemoglobin 11.2, MCV 89.7, platelets 228. PT 10.5, INR 0.9, PTT 22.6. Sodium 137, potassium 4.1, chloride 103, bicarb 29, BUN 21, creatinine 0.9, glucose 91. Calcium 9, phosphorus 4.7, Magnesium 2. LFTs unremarkable. Troponin negative. Case was discussed with the ER and patient was admitted to internal medicine service for further evaluation. While admitted patient's mental status returned to her normal baseline. Lumbar spine CT showing degenerative levoconvex scoliosis of the lumbar spine with multiple endplate deformities all of which appear chronic, mild overall spinal canal stenosis. Cervical spine CT showed no acute fracture of the cervical spine, moderate degenerative disc disease especially at C3-C4 and C6-C7 amongst other chronic changes. She was given pain medication for her back pain. Given her home situation, patient's family felt it was best for her to be admitted to an assisted living facility. She is to follow-up with her PCP. Patient is being discharged to [facility]. Vital signs reviewed and stable. Physical examination: Vital signs reviewed General: non toxic, no distress, appears at stated age, normal weight, on 3 L nasal cannula Derm: no unusual rashes/lesions, warm Head: atraumatic, normocephalic, symmetric Eyes: EOMI, anicteric sclera, pupils equal round reactive to light ENT: Nose and ears atraumatic Neck: No cervical lymphadenopathy, trachea midline, supple Mouth: no lip lesion, mucus membranes moist Cardiovascular: S1S2 reg, no murmur, positive dorsalis pedis pulse bilateral, no edema Lungs: CTA bilateral, no rhonchi, no rales, no accessory muscle use Abdominal: soft, nontender to palpation, no guarding Ext: muscle strength 5 out of 5 in all 4 extremities grossly, no gross muscle atrophy Neuro: CN II-XI grossly intact, no gross focal neuro deficits Psych: Alert, oriented to person, place, frail-appearing, anxious A total of greater than 30 minutes of time were spent preparing this complex discharge summary. Patient was discharge on May 24, 2024 at 10:34 AM. Юлия Beavers MD PGY-1 IM Dictation was produced using [employer] dictation software. please excuse any grammatical, word or spelling errors. I saw and evaluated the patient during the gunn and critical portions of this encounter, and discussed the case in detail with the resident author of this note, I agree with the Assessment and Plan, and my changes, if any, are highlighted below. Expected date of discharge: 05/24/24 Attending physician: Owen Layne MD Consults: 05/20/24 03:06 Consult Physician Routine Consulting Provider: Erica Avendaño Consult Reason/Comments: Acute metabolic encephalopathy versus dementia Do you want consulting provider notified?: Yes, Notify in am Primary care physician: Pablo De La Garza Patient Condition at Discharge: Fair Plan - Discharge Summary New Discharge Prescriptions: New Pantoprazole [Protonix] 40 mg PO DAILY@729 #30 tab Continue Memantine [Namenda] 10 mg PO DAILY #30 tab traMADol HCl [Ultram] 50 mg PO BID PRN #6 tab PRN Reason: Pain busPIRone HCl [Buspar] 5 mg PO BID #60 tab Propranolol [Inderal] 10 mg PO TID #90 tab FLUoxetine HCL [PROzac] 40 mg PO DAILY #30 cap Fluticasone/Umeclidin/Vilanter [Trelegy Ellipta 100-62.5-25] 1 puff INHALATION RT-DAILY #1 each ALPRAZolam [Xanax] 0.5 mg PO TID PRN #9 tab PRN Reason: Anxiety Changed Albuterol Nebulized [Ventolin Nebulized] 2.5 mg INHALATION RT-TID PRN #120 ml PRN Reason: Shortness Of Breath Albuterol Inhaler [Ventolin Hfa Inhaler] 1 puff INHALATION RT-QID PRN #1 each PRN Reason: Shortness Of Breath Discontinued Omeprazole 40 mg PO DAILY Discharge Medication List ALPRAZolam [Xanax] 0.5 mg PO TID PRN #9 tab 05/24/24 [Rx] Albuterol Inhaler [Ventolin Hfa Inhaler] 1 puff INHALATION RT-QID PRN #1 each 05/24/24 [Rx] Albuterol Nebulized [Ventolin Nebulized] 2.5 mg INHALATION RT-TID PRN #120 ml 05/24/24 [Rx] FLUoxetine HCL [PROzac] 40 mg PO DAILY #30 cap 05/24/24 [Rx] Fluticasone/Umeclidin/Vilanter [Trelegy Ellipta 100-62.5-25] 1 puff INHALATION RT-DAILY #1 each 05/24/24 [Rx] Memantine [Namenda] 10 mg PO DAILY #30 tab 05/24/24 [Rx] Pantoprazole [Protonix] 40 mg PO DAILY@0730 #30 tab 05/24/24 [Rx] Propranolol [Inderal] 10 mg PO TID #90 tab 05/24/24 [Rx] busPIRone HCl [Buspar] 5 mg PO BID #60 tab 05/24/24 [Rx] traMADol HCl [Ultram] 50 mg PO BID PRN #6 tab 05/24/24 [Rx] Follow up Appointment(s)/Referral(s): Pablo De La Garza DO [Primary Care Provider] - 1-2 days Discharge Disposition: HOME WITH HOME HEALTH SERVICES
[2024-05-24 15:02] VITALS: BP 153/91; PULSE 70; TEMP 99.2
== END 2024-05-24 15:05 | disposition home health service (06) | DRG 884 ==
LOC: EC 20:38 → 5NMEDONC 21:16 → OBSVTOIN 05-21 10:29
PROVIDERS: ADMIT Internal Medicine; ATTEND Internal Medicine
DX: F03.90 Unspecified dementia, unspecified severity, without behavioral disturbance, psychotic disturbance, mood disturbance, and anxiety (principal); G93.41 Metabolic encephalopathy; I48.20 Chronic atrial fibrillation, unspecified; E83.39 Other disorders of phosphorus metabolism; D64.9 Anemia, unspecified; E86.0 Dehydration; F32.A Depression, unspecified; J44.9 Chronic obstructive pulmonary disease, unspecified; G25.81 Restless legs syndrome; G25.0 Essential tremor; E78.5 Hyperlipidemia, unspecified; G89.29 Other chronic pain; K21.9 Gastro-esophageal reflux disease without esophagitis; R29.6 Repeated falls; F17.210 Nicotine dependence, cigarettes, uncomplicated; K57.30 Diverticulosis of large intestine without perforation or abscess without bleeding; Z79.01 Long term (current) use of anticoagulants; M41.9 Scoliosis, unspecified; M48.02 Spinal stenosis, cervical region; M48.061 Spinal stenosis, lumbar region without neurogenic claudication; Z79.899 Other long term (current) drug therapy; Z86.73 Personal history of transient ischemic attack (TIA), and cerebral infarction without residual deficits; Z90.710 Acquired absence of both cervix and uterus; Z96.1 Presence of intraocular lens; Z98.42 Cataract extraction status, left eye; Z98.41 Cataract extraction status, right eye; Z87.19 Personal history of other diseases of the digestive system; Z91.81 History of falling
CPT/HCPCS: 36415; 72125; 72131; 74176; 80048; 80053; 81001; 83605; 83735; 84100; 84484; 85025; 85610; 85730; 93005; 94640; 94760; 96361; 96374; 96375; 99285